=== PATIENT | female | born 2000 | race Caucasian/White ===

== ENCOUNTER 2024-01-27 18:27 | Emergency (ER) | payer OTHER, SELFPAY ==
[2024-01-27 18:28] VITALS: BP 137/81; PULSE 95; RESP 16; TEMP 36.3; O2SAT 98; BMI 31.1
--- NOTE | 2024-01-27 19:09 | EDS_ITS ---
HPI HPI - Female History of Present Illness Chief Complaint: Vag Bld, Preg Informant: patient and spouse/S.O. Narrative Narrative: 23-year-old female presenting to the emergency room in early with vaginal bleeding. Patient states that she is unsure of exactly how far along she is. She may be 4 weeks or less. She may be more. She states that her and her partner have been trying for a while to get and they recently found out that she was. Today she noticed some brown discharge and the last time she used the bathroom she noticed some bright red blood on the toilet paper. She has had some intermittent twinges and sharp pains particularly on the left side of her pelvis. She has not been seen for this yet. She does not know her blood type. She is not currently on any prescription me dications other than vitamin D2. PFSH PFSH Medical History no medical history Home Medications ?Medication ?Instructions ?Recorded ?Last Taken ?Type ergocalciferol (vitamin D2) 1,250 1,250 mcg PO QWEEK 01/27/24 Unknown History mcg (50,000 unit) capsule (Drisdol) vit no.95-ferrous 1 tab PO DAILY 01/27/24 Unknown History fumarate 28 mg-folic acid 800 mcg tablet () Allergy/AdvReac Type Severity Reaction Status Date / Time No Known Allergies Allergy Verified 01/27/24 18:28 Social History Smoking Status: Never smoker [facility] ED Constitutional Constitutional ED: Denies chills, fever(s) or weight loss Eyes Eyes: Denies change in vision or diplopia ENT ENT ED: Denies ear pain, rhinorrhea or sore throat Cardiovascular Cardiovascular: Denies chest pain, orthopnea, palpitations or racing heartbeat Respiratory/Chest Respiratory/Chest: Denies cough, dyspnea or orthopnea Gastrointestinal Gastrointestinal: Denies abdominal pain, diarrhea, nausea or vomiting Genitourinary Genitourinary ED: Reports as per HPI; Denies dysuria, hematuria or urinary frequency Musculoskeletal Musculoskeletal: Denies arthralgias or myalgias Integumentary Denies abscess or rash Neurologic Neurologic: Denies headache(s) or weakness Psychiatric Psychiatric: Denies anxiety, depression, suicidal ideation or suicidal thoughts Endocrine Endocrinology: Denies polydipsia, polyphagia or polyuria Allergic/Immunologic Allergic/Immunologic ED: Denies mouth swelling, tongue swelling or urticaria EXAM Physical Exam Const Vital Signs: 01/27/24 18:28 01/27/24 20:28 01/27/24 21:45 Temperature 97.4 F L 98.3 F Temperature Source Temporal Pulse Rate 95 87 99 Respiratory Rate 16 16 16 Blood Pressure 137/81 H 132/80 H 120/64 Blood Pressure Mean 99 97 82 Pulse Ox 98 99 100 Oxygen Delivery Method Room Air Room Air Positive well nourished and well developed General Appearance ED: well developed HEENT Reports normocephalic, head/scalp atraumatic and moist mucous membranes Eyes PERRL and EOMs intact bilaterally Neck no lymphadenopathy, supple and no JVD Resp normal respiratory effort and clear to auscultation bilaterally Cardio regular rate, regular rhythm and no murmurs GI normal to inspection, nondistended, normoactive bowel sounds and non-tender Palpation: soft Back/Spine no CVA tenderness and normal ROM Extremity normal to inspection General Extremety ED: Negative for edema General Extremity: Negative for edema Neuro oriented x3 and CN's II-XII intact bilaterally Sensorium / Orientation: alert Motor Exam: strength 5/5 throughout Psych mental status grossly normal Mood & Affect: anxious; Negative for depressed or tearful Skin no rashes or lesions noted and no wounds MDM MDM MDM Narrative Medical decision making narrative: Hemoglobin 13 urinalysis 1+ bacteria but no overt infection. Blood type a positive. Quantitative hCG is unfortunately only 25. Therefore I do not feel that a formal obstetric ultrasound is going to be of significant benefit. I did speak with on-call [facility] for Dr. Peters. It is our recommendation the patient get a 48-hour quantitative hCG. Miscarriage precautions. Relayed this information to the patient she was hoping to be able to follow-up with Dr. Reyes unfortunately they are not on-call tonight for no doc obstetrics. I provided both their names and numbers. I recommend she call see if she can get the 48-hour quantitative hCG. She will return if increased bleeding pain fever or worsening symptoms. She understands at this time I cannot guarantee a viable . She understands this is most likely nonviable but there still is a c nori that it could proceed. History & Record Review Discussion w/independent historian: Patient and Significant other Lab Data Attestation: I reviewed the patient's lab results. Labs: Laboratory Results - last 24 hr 01/27/24 01/27/24 19:16 19:17 Hgb 13.0 Hct 38.7 HCG, Quant 25 H Urine Color Straw Urine Clarity Clear Urine pH 7.0 Ur Specific [place] 1.005 Urine Protein Negative Urine Glucose (UA) Normal Urine Ketones Negative Urine Occult Blood Negative Urine Nitrite Negative Urine Bilirubin Negative Urine Urobilinogen Normal Ur Leukocyte Esterase Negative Urine RBC 0 SEEN Urine WBC 0 SEEN Ur Squamous Epith Cells 0-5 SEEN Urine Bacteria 1+ Urine Mucus 0 SEEN Blood Type O POSITIVE Discharge Plan Triage Chief Complaint: Vag Bld, Preg ED Provider: Enrique Pressley Dx/Rx/DC Orders Clinical Impression: , Vaginal bleeding Instructions: Miscarriage Threatened Prescriptions: No Action PNV cmb#95-ferrous fumarate-FA [] 28 mg iron- 800 mcg tablet 1 tab PO DAILY ergocalciferol (vitamin D2) [Drisdol] 1,250 mcg (50,000 unit) capsule 1,250 mcg PO QWEEK Primary Care Provider: Minerva Macdonald Referrals: Gabriela Mckay MD [Med Staff - Active Staff] - 2 Days Radha Peters MD [Med Staff - Active Staff] - 2 Days Minerva Macdonald, [facility] [Primary Care Provider] - Activity Restrictions/Additional Instructions: You need to have a repeat quantitative hCG level drawn in 48 hours. You may contact Dr. Peters's office to assist in this as they are on-call this week end for patients who are not established with [facility]. You may be able to get in with Dr. Hoff but would need to speak with their office. If worsening or concerns please return to emergency Print Language: [place] Disposition Disposition: Home, Self Care Discharge Date/Time: 01/27/24 21:45
[2024-01-27 19:24] LABS: Color, Urine Straw (Yellow); Glucose, Dipstick Normal (Normal); Ketone-Dipstick Negative (Negative); Leukocyte Esterase-Dipstick Negative /ul (Negative); Mucous, Urine 0 SEEN /hpf (<or=2+); Nitrite-Dipstick Negative (Negative); Occult Blood-Urine Negative /ul (Negative); Protein-Dipstick Negative (Negative); Red Blood Cells-Urine 0 SEEN /hpf (0-5); Specific Gravity, Urine 1.005 (1.002-1.030); Urine Bilirubin Dipstick Negative (Negative); Urine Clarity Clear (Clear); Urine Urobilinogen Normal (Normal); White Blood Cells 0 SEEN /hpf (0-5)
[2024-01-27 19:25] LABS: Hematocrit 38.7 % (37-47)
[2024-01-27 19:32] LABS: Bacteria 1+ /hpf (None Seen); Squamous Epithelial Cells - UA 0-5 SEEN /hpf (5-10)
[2024-01-27 19:44] LABS: hCG Titer Quant., Serum 25 mIU/mL (1-3)
[2024-01-27 20:28] VITALS: BP 132/80; PULSE 87; RESP 16; O2SAT 99
[2024-01-27 21:45] VITALS: BP 120/64; PULSE 99; RESP 16; TEMP 36.8; O2SAT 100
== END 2024-01-27 21:45 | disposition home or self-care (01) ==
PROVIDERS: Emergency Provider Emergency Medicine; PCP Nurse Practitioner Family; Visit Provider Emergency Medicine
DX: O20.9 Hemorrhage in early pregnancy, unspecified (principal); Z3A.00 Weeks of gestation of pregnancy not specified
CPT/HCPCS: 81001; 84702; 85014; 85018; 86900; 86901; 99284; A4216

== ENCOUNTER → 2024-01-29 | Outpatient (CLI) | payer OTHER, SELFPAY ==
[2024-01-29 19:57] LABS: hCG Titer Quant., Serum 45 mIU/mL (1-3)
== END | disposition home or self-care (01) ==
LOC: LAB 19:21
PROVIDERS: PCP Nurse Practitioner Family; Visit Provider Obstetrics & Gynecology
DX: Z34.90 Encounter for supervision of normal pregnancy, unspecified, unspecified trimester (principal); N93.9 Abnormal uterine and vaginal bleeding, unspecified
CPT/HCPCS: 36415; 84702

== ENCOUNTER → 2024-01-30 | Outpatient (CLI) | payer OTHER, SELFPAY ==
--- NOTE | 2024-01-30 12:43 | US_ITS ---
STUDY: FIRST TRIMESTER OBSTETRICAL ULTRASOUND REASON FOR EXAM: Female, 23 years old abnormal bleeding LMP: 12/13/2023 TECHNIQUE: Transvaginal TECHNICAL QUALITY: Adequate. PRIOR ULTRASOUND: None. FINDINGS: There is no demonstrated intrauterine gestational sac. There is no demonstrated yolk sac. The placenta is non-visualized. There is no demonstrated embryo ( pole). The uterus measures 8.5 x 5.1 x 4.0 centimeters. There is no demonstrated uterine fibroid. The cervix is closed. Endometrium is thickened at 16.8 mm The right ovary measures 3.8 x 4.0 x 2.3 cm. There is a complex cystic structure adjacent to the right ovary measuring 1.7 x 1.4 x 1.2 cm. This is possibly an ectopic , but there is no hyperemia or free fluid. Recommend short-term follow-up ultrasound and beta hCG levels for reassessment. There is also a simple 2 cm right ovarian cyst. The left ovary measures 2.0 x 1.2 x 1.1 centimeters. There is no left ovarian cyst. There is no visualized left adnexal mass or complex lesion. There is no fluid in the cul de sac. US/Transvaginal w/Preg US IMPRESSION: No sonographic evidence of intrauterine gestation. There is a thickened endometrium at 16.8 mm. There is both a simple right adnexal cyst measuring 2 cm and a complex adnexal structure measuring 1.7 cm. This complex structure could represent an ectopic but there is no hyperemia or free fluid. Recommend short-term, 3-5 day follow-up ultrasound and beta hCG levels for reassessment Sonographically normal left ovary No demonstrated free fluid Electronically Signed: Ralph Lou MD at 14:16 EDT ,
== END | disposition home or self-care (01) ==
LOC: US 12:42
PROVIDERS: PCP Nurse Practitioner Family; Referring Provider Obstetrics & Gynecology; Visit Provider Obstetrics & Gynecology
DX: O26.891 Other specified pregnancy related conditions, first trimester (principal); R10.32 Left lower quadrant pain; O20.9 Hemorrhage in early pregnancy, unspecified; Z3A.00 Weeks of gestation of pregnancy not specified
CPT/HCPCS: 76817

== ENCOUNTER → 2024-01-31 | Outpatient (CLI) | payer OTHER, SELFPAY ==
[2024-01-31 20:36] LABS: hCG Titer Quant., Serum 50 mIU/mL (1-3)
== END | disposition home or self-care (01) ==
LOC: LAB 19:14
PROVIDERS: PCP Nurse Practitioner Family; Visit Provider Obstetrics & Gynecology
DX: O20.9 Hemorrhage in early pregnancy, unspecified (principal); Z3A.00 Weeks of gestation of pregnancy not specified
CPT/HCPCS: 36415; 84702

== ENCOUNTER → 2024-02-03 | Outpatient (CLI) | payer OTHER, SELFPAY ==
[2024-02-03 11:01] LABS: hCG Titer Quant., Serum 36 mIU/mL (1-3)
== END | disposition home or self-care (01) ==
LOC: LAB 09:59
PROVIDERS: Obstetrics & Gynecology; PCP Nurse Practitioner Family; Referring Provider Obstetrics & Gynecology; Visit Provider Obstetrics & Gynecology
DX: O02.81 Inappropriate change in quantitative human chorionic gonadotropin (hCG) in early pregnancy (principal)
CPT/HCPCS: 36415; 84702

== ENCOUNTER → 2024-02-13 | Outpatient (CLI) | payer OTHER, SELFPAY ==
[2024-02-13 14:07] LABS: hCG Titer Quant., Serum < 1 mIU/mL (1-3)
== END | disposition home or self-care (01) ==
LOC: LAB 12:15
PROVIDERS: PCP Nurse Practitioner Family; Referring Provider Nurse Practitioner Women's Health; Visit Provider Nurse Practitioner Women's Health
DX: O03.9 Complete or unspecified spontaneous abortion without complication (principal)
CPT/HCPCS: 36415; 84702

== ENCOUNTER → 2024-08-11 | Outpatient (CLI) | payer OTHER, SELFPAY ==
[2024-08-11 13:40] LABS: hCG Titer Quant., Serum 41501 mIU/mL (1-3)
== END | disposition home or self-care (01) ==
LOC: LAB 12:36
PROVIDERS: PCP Nurse Practitioner Family; Referring Provider Obstetrics & Gynecology; Visit Provider Obstetrics & Gynecology
DX: O20.0 Threatened abortion (principal); Z3A.00 Weeks of gestation of pregnancy not specified
CPT/HCPCS: 36415; 84702; 86850; 86900; 86901

== ENCOUNTER → 2024-08-22 | Outpatient (CLI) | payer OTHER, SELFPAY ==
--- NOTE | 2024-08-22 15:23 | US_ITS ---
STUDY: FIRST TRIMESTER OBSTETRICAL ULTRASOUND REASON FOR EXAM: Female, 24 years old viability LMP: 06/23/2024 TECHNIQUE: Transvaginal TECHNICAL QUALITY: Adequate. PRIOR ULTRASOUND: None. FINDINGS: There is visualization of a single gestational sac in a normal intrauterine position. The mean sac diameter (MSD) measures 30 mm, indicating an estimated gestational age (EGA) of 8 weeks, 1 days. The gestational sac shape is within normal limits. 1.8 cm echogenic area within or adjacent to the gestational sac extending from the endometrium which may represent a chorionic bump. There is a visualized yolk sac. The yolk sac measures 4 mm. The placenta is non-visualized. There is visualization of a live embryo. The crown-rump length (CRL) measures 13 mm, indicating an estimated gestational age (EGA) of 7 weeks, 4 days. There is demonstrated cardiac activity with a heart rate of 164 bpm. The estimated gestation age (EGA) by LMP is 8 weeks, 4 days. The estimated date of delivery (ITZEL) by LMP is 03/30/2025. The estimated gestation age (EGA) by US is 7 weeks, 6 days. The estimated date of delivery (ITZEL) by US is 04/04/2025. The uterus measures 10.3 x 8.3 x 6.5 cm. There is no demonstrated uterine fibroid. The cervix is closed. The right ovary measures 2.9 x 1.8 x 1.8 cm. There is no right ovarian cyst. There is no visualized right adnexal mass or complex lesion. The left ovary measures 2.4 x 1.2 x 1.4 cm. There is no left ovarian cyst. There is no visualized left adnexal mass or complex lesion. There is no fluid in the cul de sac. US/Transvaginal w/Preg US IMPRESSION: Living intrauterine of 7 weeks 6 days as described above. Electronically Signed: Sarthak Rosas MD at 8:53 EST ,
[2024-08-22 16:30] LABS: Absolute Lymphocyte Count 2.27 X10^3/uL (0.83-4.51); Absolute Neutrophil Count 6.2 X10^3/uL (2.0-7.7); Basophil# 0.04 X10^3/uL; Basophil% 0.4 % (0-1); Eosinophil# 0.21 X10^3/uL; Eosinophils% 2.2 % (0-5); Hematocrit 37.7 % (37-47); Hemoglobin 12.7 g/dL (12.0-15.0); Lymphocyte # 2.27 X10^3/ul (0.83-4.51); Lymphocyte % 23.7 % (19-41); Mean Corp Hgb Conc 33.7 g/dL (32-36); Mean Corpuscular Hgb 29.5 pg (27.0-32.0); Mean Corpuscular Volume 87.5 fL (81-99); Mean Platelet Vol. 11.8 fl (6.2-12.0); Monocyte% 8.4 % (0-10); NRBC Flagged by Analyzer 0 % (0-5); Neutrophil % 64.9 % (47-70); Platelet Count 264 K/mm3 (150-450); RBC Distribution Width CV 12.2 % (11.6-14.6); RBC Distribution Width SD 39.5 fl (35.1-43.9); Red Blood Count 4.31 M/mm3 (4.2-5.4); White Blood Count 9.6 K/mm3 (4.4-11.0)
[2024-08-25 16:12] LABS: HIV - WCH Non-Reactive (Nonreactive); Hepatitis B Surface Antigen Non-Reactive (Nonreactive); Hepatitis C Antibody Non-Reactive (Nonreactive); Rubella IgG Reactive (Nonreactive); Syphilis Antibodies Non-reactive
[2024-08-25 21:06] LABS: Chlamydia By Nucleic Acid AMP Positive (Negative); Gonococcus By Nucleic Acid AMP Negative (Negative)
== END | disposition home or self-care (01) ==
PROVIDERS: Advanced Practice Midwife; PCP Nurse Practitioner Family; Referring Provider Obstetrics & Gynecology; Visit Provider Obstetrics & Gynecology
DX: O99.210 Obesity complicating pregnancy, unspecified trimester (principal); Z3A.00 Weeks of gestation of pregnancy not specified
CPT/HCPCS: 36415; 76817; 83036; 85025; 86703; 86762; 86780; 86803; 86850; 86900; 86901; 87086; 87340; 87491; 87591

== ENCOUNTER → 2024-09-15 | Outpatient (CLI) | payer OTHER, SELFPAY | END | disposition home or self-care (01) | LOC: BWCLAB 16:02 | PROVIDERS: Advanced Practice Midwife; PCP Nurse Practitioner Family; Referring Provider Obstetrics & Gynecology; Visit Provider Obstetrics & Gynecology | DX: Z34.81 Encounter for supervision of other normal pregnancy, first trimester (principal) | CPT/HCPCS: 36415 ==

== ENCOUNTER → 2024-10-22 | Outpatient (CLI) | payer OTHER, SELFPAY | END | disposition home or self-care (01) | LOC: LABSPEC 16:22 | PROVIDERS: PCP Nurse Practitioner Family; Referring Provider Nurse Practitioner Women's Health; Visit Provider Nurse Practitioner Women's Health | DX: O98.819 Other maternal infectious and parasitic diseases complicating pregnancy, unspecified trimester (principal); A74.9 Chlamydial infection, unspecified; Z11.3 Encounter for screening for infections with a predominantly sexual mode of transmission; Z3A.00 Weeks of gestation of pregnancy not specified | CPT/HCPCS: 87491; 87591 ==

== ENCOUNTER → 2024-11-10 | Outpatient (CLI) | payer OTHER, SELFPAY ==
--- NOTE | 2024-11-10 13:19 | US_ITS ---
PROCEDURE: OB ANATOMY W/ TRANSVAGINAL REASON FOR EXAM: Anatomy scan. COMPARISON: Comparison is made with prior study dated August 22, 2024. FINDINGS Number: 1 Position: Breech Placental Position: Anterior and right lateral. No evidence of low-lying placenta. Placental Abnormalities: None. DIMENSIONS: Biparietal Diameter: 4.35 cm: 19 weeks and 1 day: 17 percentile/ Head Circumference: 15.9 cm: 18 weeks and 5 days: 4th percentile/ Abdominal Circumference: 13.95 cm: 19 weeks and 2 days: 24 percentile/ Femur Length: 2.75 cm: 18 weeks and 3 days: 4th percentile/ ESTIMATED WEIGHT: 266 g plus/-40 g ESTIMATED WEIGHT PERCENTILE (24+ weeks): ESTIMATED GESTATIONAL AGE: Baseline: 20 weeks and 0 days By Ultrasound: 18 weeks and 6 days ESTIMATED DATE OF DELIVERY: Baseline: March 30, 2025 By Ultrasound: April 07, 2025 BIOPHYSICAL ASSESSMENT: Amniotic Fluid Volume: Subjectively normal. Amniotic Fluid Index: Within normal limits (8-24 cm normal range) Cardiac Motion: 144 beats per minute (average) Trunk and Limb Motion: Present. MATERNAL ANATOMY: Adnexa: Neither maternal ovary is successfully identified. Cervical Length (if measured): ANATOMY: Spine: Unremarkable. Cranium: Unremarkable. Cerebellum: Unremarkable. Cisterna Magna: Unremarkable. Cavum Septum Pellucidi: Present. Lateral Ventricles: Unremarkable. Choroid Plexus: Tiny cysts are seen within the choroid plexus bilaterally. Midline Falx: Present. Nuchal Fold: Upper Lip: Grossly intact. Heart: Normal four-chamber view. Ventricular Outflow Tracts: Unremarkable. Stomach: Unremarkable. Kidneys: Unremarkable. Bladder: Midline. Umbilical Cord: Three vessel cord. Normal and placental insertions. Extremities: Unremarkable. US/OB Anatomy w/ Transvaginal IMPRESSION: Single live intrauterine gestation with a mean gestational age of 19 weeks and 2 days. The measurements obtained today fall with the normal expected range. Small cysts in both choroid plexus. Reading Location: [id number]
== END | disposition home or self-care (01) ==
PROVIDERS: PCP Nurse Practitioner Family; Referring Provider Obstetrics & Gynecology; Visit Provider Obstetrics & Gynecology
DX: O09.90 Supervision of high risk pregnancy, unspecified, unspecified trimester (principal); Z3A.00 Weeks of gestation of pregnancy not specified
CPT/HCPCS: 76805; 76817

== ENCOUNTER → 2025-01-06 | Outpatient (CLI) | payer OTHER, SELFPAY ==
[2025-01-06 13:10] LABS: Absolute Lymphocyte Count 2.08 X10^3/uL (0.83-4.51); Basophil# 0.04 X10^3/uL; Basophil% 0.3 % (0-1); Eosinophil# 0.17 X10^3/uL; Eosinophils% 1.2 % (0-5); Hematocrit 30.4 % (37-47); Hemoglobin 10.2 g/dL (12.0-15.0); Lymphocyte # 2.08 X10^3/ul (0.83-4.51); Lymphocyte % 14.5 % (19-41); Mean Corp Hgb Conc 33.6 g/dL (32-36); Mean Corpuscular Hgb 30.4 pg (27.0-32.0); Mean Corpuscular Volume 90.7 fL (81-99); Mean Platelet Vol. 11.4 fl (6.2-12.0); Monocyte# 0.78 X10^3/uL; Monocyte% 5.4 % (0-10); NRBC Flagged by Analyzer 0 % (0-5); Neutrophil # 11.01 X10^3/uL (2.7-7.7); Neutrophil % 76.9 % (47-70); Platelet Count 268 K/mm3 (150-450); RBC Distribution Width CV 12.7 % (11.6-14.6); RBC Distribution Width SD 41.2 fl (35.1-43.9); Red Blood Count 3.35 M/mm3 (4.2-5.4); White Blood Count 14.3 K/mm3 (4.4-11.0)
[2025-01-06 14:52] LABS: Glucose Challenge Gest 1H 50g 126 mg/dL (70-140); HIV Nonreactive (Nonreactive); Syphilis Antibodies Nonreactive (Nonreactive)
== END | disposition home or self-care (01) ==
LOC: LAB 11:54
PROVIDERS: PCP Nurse Practitioner Family; Referring Provider Obstetrics & Gynecology; Visit Provider Obstetrics & Gynecology
DX: O09.92 Supervision of high risk pregnancy, unspecified, second trimester (principal); Z13.1 Encounter for screening for diabetes mellitus; Z3A.00 Weeks of gestation of pregnancy not specified
CPT/HCPCS: 36415; 82950; 85025; 86703; 86780

== ENCOUNTER → 2025-01-08 | Outpatient (CLI) | payer OTHER, SELFPAY ==
--- NOTE | 2025-01-08 16:16 | US_ITS ---
PROCEDURE: OB LIMITED WITH BIOMETRICS 01/08/2025 REASON FOR EXAM: FOLLOW UP RESEARCH SUBJECT TECHNIQUE: High resolution obstetric ultrasound performed using a 2D transducer. Standard views obtained, including biometry, anatomy survey, and Doppler studies. FINDINGS Transabdominal imaging Single live intrauterine with cardiac activity 143 beats per minute. Presentation breech. Cervix not visualized. EDITH 15.4 cm, maximum vertical pocket 4.0 cm Anterior right lateral placenta appears within limits, not low-lying, grade 2 DIMENSIONS: Biparietal Diameter: 6.8 cm/27 weeks 2 days, 9% Head Circumference: 25.5 cm/27 weeks 5 days, 6% Abdominal Circumference: 23.3 cm/27 weeks 5 days, 21% Femur Length: 4.8 cm/26 weeks 1 day, 1.4% FL/HC 21%, FL/BPD 71%, FL/HC 19%, CI 75%, HC/AC 1.1 ESTIMATED WEIGHT: 1034 g +/-155 g ESTIMATED WEIGHT PERCENTILE (24+ weeks): 7.2% Estimated age by current ultrasound 27 weeks 2 days, ITZEL 04/07/2025 age by prior ultrasound 27 weeks 2 days, ITZEL 04/07/2025 age by LMP 28 weeks 3 days, ITZEL 03/30/2025 On the current ultrasound there is no evidence of cystic area identified at the choroid plexus. US/OB Limited With Biometrics IMPRESSION: Single live intrauterine with biometry as above. Femur Length: 4.8 cm/26 weeks 1 day, 1.4% ESTIMATED WEIGHT: 1034 g +/-155 g ESTIMATED WEIGHT PERCENTILE (24+ weeks): 7.2% Reading Location: [id number]
== END | disposition home or self-care (01) ==
LOC: US 16:15
PROVIDERS: PCP Nurse Practitioner Family; Referring Provider Obstetrics & Gynecology; Visit Provider Obstetrics & Gynecology
DX: O35.03X0 Maternal care for (suspected) central nervous system malformation or damage in fetus, choroid plexus cysts, not applicable or unspecified (principal); Z3A.00 Weeks of gestation of pregnancy not specified
CPT/HCPCS: 76816

== ENCOUNTER → 2025-02-03 | Outpatient (CLI) | payer OTHER, SELFPAY ==
[2025-02-03 16:15] LABS: Absolute Lymphocyte Count 2.13 X10^3/uL (0.83-4.51); Absolute Neutrophil Count 8.7 X10^3/uL (2.0-7.7); Basophil# 0.02 X10^3/uL; Basophil% 0.2 % (0-1); Eosinophil# 0.14 X10^3/uL; Eosinophils% 1.1 % (0-5); Hemoglobin 10.8 g/dL (12.0-15.0); Lymphocyte # 2.13 X10^3/ul (0.83-4.51); Lymphocyte % 17.4 % (19-41); Mean Corp Hgb Conc 32.7 g/dL (32-36); Mean Corpuscular Hgb 30.6 pg (27.0-32.0); Mean Corpuscular Volume 93.5 fL (81-99); Mean Platelet Vol. 11.7 fl (6.2-12.0); Monocyte# 1.05 X10^3/uL; Monocyte% 8.6 % (0-10); NRBC Flagged by Analyzer 0 % (0-5); Neutrophil # 8.66 X10^3/uL (2.7-7.7); Neutrophil % 70.7 % (47-70); Platelet Count 232 K/mm3 (150-450); RBC Distribution Width CV 13.9 % (11.6-14.6); RBC Distribution Width SD 46.7 fl (35.1-43.9); Red Blood Count 3.53 M/mm3 (4.2-5.4); White Blood Count 12.2 K/mm3 (4.4-11.0)
== END | disposition home or self-care (01) ==
LOC: BWCLAB 14:00
PROVIDERS: PCP Nurse Practitioner Family; Visit Provider Nurse Practitioner Women's Health
DX: D64.9 Anemia, unspecified (principal)
CPT/HCPCS: 36415; 85025

== ENCOUNTER → 2025-02-18 | Outpatient (CLI) | payer OTHER, SELFPAY | END | disposition home or self-care (01) | LOC: LABSPEC 15:11 | PROVIDERS: PCP Nurse Practitioner Family; Visit Provider Obstetrics & Gynecology | DX: O47.00 False labor before 37 completed weeks of gestation, unspecified trimester (principal); Z3A.00 Weeks of gestation of pregnancy not specified | CPT/HCPCS: 87070; 87086; 87088; 87205 ==

== ENCOUNTER 2025-02-19 06:50 | Outpatient (CLI) | payer OTHER, SELFPAY ==
--- OUTSIDE RECORDS SUMMARY | 2025-02-19 07:04 | XMS RPT_ITS | CCD ---
Author Organization [facility] Care Team Providers Care Temperature Logging Operator Name Role Phone Free, Text Entry Unavailable Unavailable [place], Verona I Unavailable Unavailable Flower HIGH RISK CASE MANAGER-SHINGLE GRADER, Minerva D Primary Care Provider FLOWER, MINERVA D Primary Care Unavailable FLOWER, MINERVA D Primary Care Unavailable FLOWER, MINERVA D Primary Care Unavailable FLOWER, MINERVA D Attending Unavailable FLOWER, MINERVA D Primary Care Unavailable FLOWER, MINEVRA D Attending Unavailable FLOWER, MINERVA D Primary Care Unavailable FLOWER, MINERVA D Attending Unavailable FLOWER, MINERVA D Primary Care Unavailable FLOWER, MINERVA D Primary Care Unavailable BILL ANDRES Referring Unavailable Flower CONCRETE BATCHING PLANT OPERATOR-C, Minerva D Primary Care Provider Flower CONCRETE BATCHING PLANT OPERATOR-C, Minerva D Referring Provider [phone] Dr. Radha Peters MD Attending Provider [phone] Dr. Radha Peters MD Referring Provider Faith Wall RN Attending Provider UnavailElle Hernandez CNM Attending Provider [place] CONCRETE BATCHING PLANT OPERATOR-C, Chioma Attending Provider [place] CONCRETE BATCHING PLANT OPERATOR-C, Chioma Referring Provider [place]lower CONCRETE BATCHING PLANT OPERATOR-C, Minerva D Primary Care Provider [phone] Flower CONCRETE BATCHING PLANT OPERATOR-C, Minerva D Referring Provider [phone] Dr. Radha Peters MD Attending Provider Dr. Radha Peters MD Referring Provider Dr. María Elena Solomon DO Attending Provider Dr. María Elena Solomon DO Referring Provider Elle Poe CNM Attending Provider NO PRIMARY CARE, Primary Care Unavailable MARÍA ELENA CROFT Referring Unavailab MARÍA ELENA Frost Attending Unavailab Amber Alejandra CNM Attending Provider [phone] Flower CONCRETE BATCHING PLANT OPERATOR-C, Minerva D Primary Care Provider [place] CONCRETE BATCHING PLANT OPERATOR-C, Minerva D Referring Provider [phone] Fran GARCIA, Dr. Garcia Attending Provider [phone] Flower, Minerva D Primary Care Unavailable Elle Poe Attending Unavailable Flower, Minerva D Referring Unavailable Faith Wall Attending Unavailable Flower, Minerva D Primary Care Unavailable Flower, Minerva D Primary Care Unavailable Flower, Minerva D Referring Unavailable Gian, Molly Attending Unavailable Vande María Elena Hodge Attending Unavailabl e Flower, Minerva D Primary Care Unavailable Flower, Minerva D Referring Unavailable Vande VeldeMaría Elena Attending Unavailabl e Flower, Minerva D Primary Care Unavailable Flower, Minerva D Referring Unavailable Flower, Minerva D Primary Care Unavailable Flower, Minerva D Referring Unavailable MarcanthonyRadha Attending Unavailable Flower, Minerva D Primary Care Unavailable Marcanthony, Radha Attending Unavailable Flower, Minerva D Referring Unavailable Flower, Minerva D Primary Care Unavailable BarakanthonyRadha Referring Unavailable BarakanthonyRadha Attending Unavailable Flower, Minerva D Primary Care Unavailable MarcanthonyRadha Referring Unavailable MarcanthonyRadha Attending Unavailable Flower, Minerva D Primary Care Unavailable Flower, Minreva D Referring Unavailable Elle Poe Attending Unavailable Flower, Minerva D Primary Care Unavailable Chioma Springer Referring Unavailable Gian, Molly Attending Unavailable Flower, Minerva D Primary Care Unavailable MarcanthonyRadha Attending Unavailable BarakanthonyRadha Referring Unavailable María Elena Solomon Referring Unavailabl e María Elena Solomon Attending Unavailabl e Flower, Minerva D Primary Care Unavailable Flower, Minerva D Primary Care Unavailable MarcanthonyRadha Referring Unavailable MarcanthonyRadha Attending Unavailable Flower, Minerva D Primary Care Unavailable Gian, Molly Attending Unavailable María Elena Solomon Referring Unavailabl e Jeremias VelMaría Elena schneider Attending Unavailabl e Flower, Minerva D Primary Care Unavailable Flower, Minerva D Primary Care Unavailable [place], Chioma Attending Unavailable Minerva Flower Referring Unavailable Amber Dyer Attending Unavailable Minerva Flower Referring Unavailable Minerva Flower Primary Care Unavailable Minerva Flower Primary Care Unavailable Minerva Flower Referring Unavailable Chioma Springer Attending Unavailable Minerva Flower Primary Care Unavailable Minerva Flower Referring Unavailable Radha Peters Attending Unavailable Allergies Allergy Classification Reported Allergen(s) Allergy Type Date of Onset Reaction(s) Facility (5 sources) strawberry allergenic extract; Translations: [STRAWBERRY] Drug Allergy 05-30-2023 Unknown [facility] Medications Current Medications Medication Drug Class(es) Dates Sig (Normalized) Sig (Original) acetaminophen 325 mg oral tablet (1 source) take 1 tablet by mouth every four hours as needed acetaminophen 325 mg oral tablet ; 1 tab(s) orally every 4 hours, As Needed Quantity: 0 Refills: 0 Ordered: 30-Nov-2021 Gertrude Mccloud Generic Substitution Allowed amoxicillin 500 mg oral capsule (1 source) Penicillin-class Antibacterial Start: 07-05-2023 End: 07-15-2023 take 1 capsule by mouth every twelve hours amoxicillin (Amoxil) 500 mg capsule Indications: Pharyngitis, unspecified etiology Take 1 capsule (500 mg) by mouth every 12 hours for 10 days. 20 capsule 0 07/05/2023 07/15/2023 Active cholecalciferol 0.05 mg oral tablet (1 source) Vitamin D Start: 07-29-2024 End: 07-29-2025 take 1 tablet by mouth once daily cholecalciferol (Vitamin D3) 50 MCG (2000 UT) tablet Indications: Vitamin D deficiency Take 1 tablet (50 mcg) by mouth once daily. 90 tablet 3 07/29/2024 07/29/2025 Active docosahexaenoic acid 200 mg oral capsule (7 sources) Start: 08-15-2024 Docosahexaenoic Acid ( Dha) 200 mg capsule Active mg PO August 15, 2024 1:00am ergocalciferol 1.25 mg oral capsule (10 sources) Provitamin D2 Compound Start: 01-27-2024 Ergocalciferol (Vitamin D2) (Drisdol) 1,250 mcg (50,000 unit) capsule Active 1250 ug PO EVERY WEEK January 27, 2024 12:00am Start: 05-30-2023 End: 07-29-2024 take 1 capsule by mouth every week ergocalciferol (Vitamin D-2) 1.25 MG (99857 UT) capsule Indications: Vitamin D deficiency Take 1 capsule (50,000 Units) by mouth 1 (one) time per week. 13 capsule 3 10/30/2023 07/29/2024 Discontinued (Therapy completed) famotidine 20 mg oral tablet (1 source) Histamine-2 Receptor Antagonist Start: 02-18-2025 take 1 tablet by mouth twice daily before mealtime Famotidine (Pepcid Ac) 20 mg tablet Active 20 mg PO TWICE A DAY February 18, 2025 12:00am 24 hr ferrous sulfate 142 mg extended release oral tablet (7 sources) Start: 02-03-2025 take 1 tablet by mouth once daily Ferrous Sulfate (Slow Fe) 137 mg (45 mg iron) tablet extended release Active 137 mg PO daily February 03, 2025 12:00am Start: 05-31-2023 FeroSuL 325 mg (65 mg iron) tablet Take 1 tablet by mouth. 05/31/2023 Active Start: 05-30-2023 End: 07-05-2023 take 1 tablet by mouth once daily at mealtime ferrous sulfate 325 (65 Fe) MG EC tablet Indications: Iron deficiency anemia, unspecified iron deficiency anemia type Take 1 tablet (325 mg) by mouth once daily with a meal. Do not crush, chew, or split. 90 tablet 3 05/30/2023 07/05/2023 Discontinued (Duplicate order) fluconazole 150 mg oral tablet (1 source) Azole Antifungal Start: 07-05-2023 fluconazole ( Diflucan) 150 mg tablet Indications: Pharyngitis, unspecified etiology TAKE 1 TAB Q72 HOURS PRN 3 tablet 0 07/05/2023 Active Start: 07-05-2023 fluconazole (D iflucan) 150 mg tablet Indications: Pharyngitis, unspecified etiology TAKE 1 TAB Q72 HOURS PRN 3 tablet 0 07/05/2023 Active ibuprofen 200 mg oral tablet (1 source) Nonsteroidal Anti-inflammatory Drug take 1 tablet by mouth every six hours as needed ibuprofen 200 mg oral tablet ; 1 tab(s) orally every 6 hours, As Needed Quantity: 0 Refills: 0 Ordered: 30-Nov-2021 Gertrude Mccloud Generic Substitution Allowed Mecobalamin (Vitamin B12) 10,000 mcg recon soln (7 sources) Start: 2023 Mecobalamin (Vitamin B12) 10,000 mcg recon soln Active ug IM MONTHLY August 15, 2024 1:00am Multivitamin preparation (1 source) take 1 tablet by mouth once daily Multiple Vitamins oral tablet, chewable ; 1 tab(s) orally once a day Quantity: 0 Refills: 0 Ordered: 30-Nov-2021 Gertrude Mccloud Generic Substitution Allowed ondansetron 4 mg disintegrating oral tablet (7 sources) Serotonin-3 Receptor Antagonist Start: 2023 take 1 tablet by mouth every six hours as needed for nausea and vomiting Ondansetron 4 mg tablet,disintegratin g Active 4 mg PO EVERY 6 HOURS as needed for nausea and vomiting August 09, 2024 1:00am PNV no.95/ferrous fum/folic ac ( MULTIVITAMINS ORAL) (2 sources) take 1 capsule by mouth once daily before mealtime PNV no.95/ferrous fum/folic ac ( MULTIVITAMINS ORAL) Take 1 capsule by mouth once daily. Active vitamin b12 1 mg/ml injectable solution (1 source) Vitamin B12 Start: 2023 cyanocobalamin (Vitamin B-12) injection 1,000 mcg Start: 07-29-2024 cyanocobalamin (Vitamin B-12) injection 1,000 mcg Completed/Discontinued Medications Medication Drug Class(es) Dates Sig (Normalized) Sig (Original) azithromycin 500 mg oral tablet (7 sources) Macrolide Antimicrobial Start: 08-26-2024 End: 10-22-2024 take 1 tablet by mouth once Azithromycin (Zithromax) 500 mg tablet Discontinued 1000 mg PO ONCE 2 August 26, 2024 1:00am October 22, 2024 3:29pm administer on day 1 of therapy Pnv Cmb#95-Ferrous Fumarate-Fa () 28 mg iron- 800 mcg tablet (7 sources) Start: 01-27-2024 End: 02-13-2024 Pnv Cmb#95-Ferrous Fumarate-Fa () 28 mg iron- 800 mcg tablet Discontinued 1 {tbl} PO DAILY January 27, 2024 12:00am February 13, 2024 11:48am Problems Active Problems Problem Classification Problem Date Documented Date Episodic/Chronic Abdominal pain (3 sources) Abdominal pain; Translations: [Periumbilical pain] 11-30-2021 Episodic Comment on above: ABD PAIN Bacterial infection; unspecified site (1 source) Chlamydial infection, unspecified; Translations: [Chlamydial infection, unspecified] Onset: 02-03-2025 Episodic Deficiency and other anemia (1 source) Anemia, unspecified; Translations: [Anemia, unspecified] Onset: 02-06-2025 Episodic Diseases of white blood cells (5 sources) Leukocytosis; Translations: [Elevated white blood cell count, unspecified] Onset: 07-29-2024 07-29-2024 Chronic Hemorrhage during ; abruptio placenta; placenta previa (20 sources) Antepartum hemorrhage; Translations: [Hemorrhage in early , unspecified] Onset: 09-23-2024 02-13-2024 Episodic Comment on above: viable 3.8mm CRL wit h FHT present, separat 14 mm structure in the GS seen separate from pole and yolk sac, unclear significance, formal scan ordered for new OB visit next week Menstrual disorders (5 sources) Amenorrhea; Translations: [Amenorrhea, unspecified] Onset: 07-25-2024 07-25-2024 Chronic Nutritional deficiencies (9 sources) Vitamin D deficiency; Translations: [Vitamin D deficiency, unspecified] Onset: 05-30-2023 05-30-2023 Chronic Nutritional deficiencies (9 sources) Iron deficiency; Translations: [Iron deficiency] Onset: 05-30-2023 Resolved: 10-19-2023 05-30-2023 Episodic Other complications of ; puerperium affecting management of mother (19 sources) choroid plexus cyst; Translations: [Choroid plexus cyst of fetus in heredia ] 12-18-2024 Episodic Comment on above: negative on repeat s can. Other complications of (20 sources) Maternal obesity complicating , childbirth and the puerperium, antepartum; Translations: [Obesity complicating , unspecified trimester] 10-22-2024 Chronic Comment on above: BMI 30.4, HgBA1C nor mal Other complications of (7 sources) Anemia of ; Translations: [Anemia complicating , unspecified trimester] 02-03-2025 Chronic Other complications of (1 source) Obesity complicating , second trimester; Translations: [Obesity complicating , second trimester] Onset: 02-03-2025 Chronic Other complications of (1 source) Anemia complicating , third trimester; Translations: [Anemia complicating , third trimester] Onset: 02-03-2025 Chronic Other complications of (1 source) Obesity complicating , unspecified trimester; Translations: [Obesity complicating , unspecified trimester] Onset: 09-25-2024 Chronic Other complications of (7 sources) Left lower quadrant pain; Translations: [Other specified related conditions, first trimester] 02-13-2024 Episodic Other complications of (20 sources) H/O: miscarriage; Translations: [Supervision of with other poor reproductive or obstetric history, unspecified trimester] 08-15-2024 Episodic Comment on above: January 2024 Other complications of (20 sources) High risk ; Translations: [Supervision of high risk , unspecified, unspecified trimester] 10-22-2024 Episodic Comment on above: , ITZEL 03/30/25, H usband: Otoniel PRR , ITZEL 5, : Otoniel Other complications of (20 sources) Chlamydial infection; Translations: [Other maternal infectious and parasitic diseases complicating , unspecified trimester] 10-23-2024 Episodic Comment on above: 08/26/24 azithromyci n sent; 10/22/24 rpt culture:negative Other complications of (14 sources) Disorder of ; Translations: [Maternal care for other known or suspected poor growth, unspecified trimester, not applicable or unspecified] 01-12-2025 Episodic Comment on above: growth US 7%- MFM re ferral for fu growth scan growth US 7%- MFM re ferral for fu growth scan. due date changed 04/06/25 on 01/20. Other complications of (1 source) Supervision of with other poor reproductive or obstetric history, unspecified trimester; Translations: [Supervision of with other poor reproductive or obstetric history, unspecified trimester] Onset: 02-03-2025 Episodic Other complications of (1 source) Other maternal infectious and parasitic diseases complicating , unspecified trimester; Translations: [Other maternal infectious and parasitic diseases complicating , unspecified trimester] Onset: 02-03-2025 Episodic Other complications of (1 source) Supervision of high risk , unspecified, third trimester; Translations: [Supervision of high risk , unspecified, third trimester] Onset: 02-03-2025 Episodic Other complications of (1 source) Maternal care for other known or suspected poor growth, unspecified trimester, not applicable or unspecified; Translations: [Maternal care for other known or suspected poor growth, unspecified trimester, not applicable or unspecified] Onset: 02-03-2025 Episodic Other complications of (1 source) Supervision of high risk , unspecified, second trimester; Translations: [Supervision of high risk , unspecified, second trimester] Onset: 01-14-2025 Episodic Other complications of (1 source) Supervision of high risk , unspecified, unspecified trimester; Translations: [Supervision of high risk , unspecified, unspecified trimester] Onset: 11-21-2024 Episodic Other female genital disorders (7 sources) Vaginal bleeding; Translations: [Abnormal uterine and vaginal bleeding, unspecified] 02-04-2024 Chronic Other and delivery including normal (20 sources) Encounter for supervision of normal , unspecified, unspecified trimester; Translations: [] Onset: 07-29-2024 Episodic Comment on above: NIPT low risk, Choro id plexus cysts. Residual codes; unclassified (20 sources) Family history of hemochromatosis; Translations: [Family history of other endocrine, nutritional and metabolic diseases] 08-15-2024 Episodic Comment on above: Pt tested and is NEG ATIVE Residual codes; unclassified (20 sources) Vegetarian; Translations: [Other specified health status] 08-15-2024 Episodic Comment on above: x8 years - recently started eating some meat since Residual codes; unclassified (1 source) Family history of other endocrine, nutritional and metabolic diseases; Translations: [Family history of other endocrine, nutritional and metabolic diseases] Onset: 02-03-2025 Episodic Residual codes; unclassified (1 source) Other specified health status; Translations: [Other specified health status] Onset: 02-03-2025 Episodic Residual codes; unclassified (1 source) 31 weeks gestation of ; Translations: [31 weeks gestation of ] Onset: 02-03-2025 Episodic Residual codes; unclassified (1 source) 28 weeks gestation of ; Translations: [28 weeks gestation of ] Onset: 01-06-2025 Episodic Spontaneous (7 sources) Miscarriage; Translations: [Complete or unspecified spontaneous without complication] 08-15-2024 Episodic Unclassified (1 source) Periumbilical abdominal pain 11-30-2021 Unclassified (1 source) Maternal care for (suspected) central nervous system malformation or damage in fetus, choroid plexus cysts, not applicable or unspecified; Translations: [Maternal care for (suspected) central nervous system malformation or damage in fetus, choroid plexus cysts, not applicable or unspecified] Onset: 01-15-2025 Past or Other Problems Problem Classification Problem Date Documented Da te Episodic/Chronic Administrative/social admission (2 sources) First encounter by subject; Translations: [Persons encountering health services in other specified circumstances] Onset: 05-23-2023 Resolved: 05-30-2023 05-30-2023 Episodic Contraceptive and procreative management (4 sources) Patient encounter status; Translations: [Encounter for procreative management, unspecified] Onset: 05-23-2023 Resolved: 05-30-2023 05-23-2023 Episodic Deficiency and other anemia (4 sources) Iron deficiency anemia; Translations: [Iron deficiency anemia, unspecified] Onset: 05-30-2023 05-30-2023 Episodic Deficiency and other anemia (4 sources) Iron deficiency anemia, unspecified; Translations: [Iron deficiency anemia, unspecified] Onset: 05-30-2023 Episodic Other upper respiratory infections (4 sources) Pharyngitis; Translations: [Acute pharyngitis, unspecified] Onset: 07-05-2023 Resolved: 10-19-2023 07-05-2023 Episodic Residual codes; unclassified (1 source) 13 weeks gestation of ; Translations: [13 weeks gestation of ] Onset: 09-23-2024 Episodic Residual codes; unclassified (1 source) 8 weeks gestation of ; Translations: [8 weeks gestation of ] Onset: 08-22-2024 Episodic Unclassified (3 sources) Onset: 07-05-2023 Resolved: 11-19-2024 10-26-2023 Results Test Name Value Interpretation Reference Range Facility Absolute lymphocyte countOrd ered By: Chioma Springer on 02-03-2025 Lymphocytes Auto (Unsp spec) [#/Vol] 2.13 10*3/uL 0.83-4.51 [facility] Absolute neutrophil countOrd ered By: Chioma Springer on 02-03-2025 Neutrophils (Bld) [#/Vol] 8.7 10*3/uL High 2.0-7.7 [facility] Automated blood erythrocyte countOrdered By: Chioma Springer on 02-03-2025 RBC (Bld) [#/Vol] 3.53 10*6/uL Low 4.2-5.4 [facility] Comment on above: Performed By: #### L 100.0100 ####[facility] [address] [place] [id number] Automated blood hematocrit ( percentage)Ordered By: Chioma Springer on 02-03-2025 Hematocrit (Bld) [Volume fraction] 33.0 % Low 37-47 [facility] Comment on above: Performed By: #### L 100.0100 ####[facility] [address] [facility] [id number] Automated lymphocyte count a s percentage of total leukocytesOrdered By: Chioma Springer on 02-03-2025 Lymphocytes/100 WBC Auto (Unsp spec) 17.4 % Low 19-41 [facility] Basophil percentageOrdered B y: Chioma Springer on 02-03-2025 Basophils/100 WBC (Bld) 0.2 % 0-1 [facility] Comment on above: Performed By: #### L 100.0100 ####[facility] [address] [place], [place], [id number] CBC W/Diff, Automatedon 01-09 Absolute Lymph 2.13 X10 3/uL Normal 0.83-4.51 [facility] Comment on above: Performed By: #### L 100.0100 ####[facility] [address] [place], [address] Absolute Neut 8.7 X10 3/uL High 2.0-7.7 [facility] Comment on above: Performed By: #### L 100.0100 ####[facility] [address] [place], [address] IG% 2.000 High 0.0-0.9 [facility] Comment on above: Result Comment: IG% - Immature Granulocytes (promyelocytes, myelocytes and metamyelocytes) > 1% indicates that a LEFT SHIFT is Present. Performed By: #### L 100.0100 ####[facility] [address] [place], [address] Lymphocytes/100 WBC (Bld) 17.4 % Low 19-41 [facility] Comment on above: Performed By: #### L 100.0100 ####[facility] [address] [place], [address] Nucleated RBC (Bld) [#/Vol] 0 10*3/uL Normal 0-5 [facility] Comment on above: Performed By: #### L 100.0100 ####[facility] [address] [place], [address] RDW SD 46.7 fl High 35.1-43.9 [facility] Comment on above: Performed By: #### L 100.0100 ####[facility] [address] [place], [address] Eosinophil percentageOrdered By: Chioma Springer on 02-03-2025 Eosinophils/100 WBC (Bld) 1.1 % 0-5 [facility] Comment on above: Performed By: #### L 100.0100 ####[facility] [address] [place], [address] Erythrocyte distribution wid th ratioOrdered By: Chioma Springer on 02-03-2025 Erythrocyte distribution width (RBC) [Ratio] 13.9 % 11.6-14.6 [facility] Comment on above: Performed By: #### L 100.0100 ####[facility] [address] [place], [address] Erythrocyte distribution wid th standard deviationOrdered By: Chioma Springer on 02-03-2025 Erythrocyte distribution width (RBC) [Ratio] 46.7 fl High 35.1-43.9 [facility] Hemoglobin measurementOrdere d By: Chioma Springer on 02-03-2025 Hemoglobin (Bld) [Mass/Vol] 10.8 g/dL Low 12.0-15.0 [facility] Comment on above: Performed By: #### L 100.0100 ####[facility] [address] [place], [address] Immature granulocytes/100 WB C Auto (Bld)Ordered By: Chioma Springer on 02-03-2025 Immature granulocytes/100 WBC (Bld) 2.000 % High 0.0-0.9 [facility] Comment on above: IG% - Immature Granu locytes (promyelocytes, myelocytes and metamyelocytes) > 1% indicates that a LEFT SHIFT is Present. Laboratory - Chemistry and C hemistry - challengeOrdered By: Chioma Springer on 02-03-2025 Glucose Ql (U) Negative [facility] Laboratory - UrinalysisOrder ed By: Chioma Springer on 02-03-2025 Protein Ql (U) Negative [facility] MCV (mean corpuscular volume ) determinationOrdered By: Chioma Springer on 02-03-2025 MCV (RBC) [Entitic vol] 93.5 fL 81-99 [facility] Comment on above: Performed By: #### L 100.0100 ####[facility] [address] [place], [address] Mean corpuscular hemoglobin (MCH) determinationOrdered By: Chioma Springer on 02-03-2025 MCH (RBC) [Entitic mass] 30.6 pg 27.0-32.0 [facility] Comment on above: Performed By: #### L 100.0100 ####[facility] [address] [place], [place], [id number] Mean corpuscular hemoglobin concentration (MCHC) determinationOrdered By: Chioma Springer on 02-03-2025 MCHC (RBC) [Mass/Vol] 32.7 g/dL 32-36 [facility] Comment on above: Performed By: #### L 100.0100 ####[facility] [address] [place], [address] Mean platelet volume determi nationOrdered By: Chioma Springer on 02-03-2025 Platelet mean volume (Bld) [Entitic vol] 11.7 fL 6.2-12.0 [facility] Comment on above: Performed By: #### L 100.0100 ####[facility] [address] [place], [address] Monocyte percentageOrdered B y: Chioma Springer on 02-03-2025 Monocytes/100 WBC (Bld) 8.6 % 0-10 [facility] Comment on above: Performed By: #### L 100.0100 ####[facility] [address] [place], [address] Neutrophil percentageOrdered By: Chioma Springer on 02-03-2025 Neutrophils/100 WBC (Bld) 70.7 % High 47-70 [facility] Comment on above: Performed By: #### L 100.0100 ####[facility] [address] [place], [address] Nucleated red blood cell per centageOrdered By: Chioma Springer on 02-03-2025 Nucleated RBC/100 WBC (Bld) [Ratio] 0 % 0-5 [facility] Promoter Office Visit Reporton 02-03-2025 Community [facility] Promoter Office Visit Report [facility]'[address], [address] [place] [address] OFFICE VISIT Date of Service: 02/03/25 MR#: [id number] Acct: [id number] Name: MADDIE TORRE Rep #: [id number] : 2000 Provider: AMEE diaz Age/Sex: 24/F Location: [facility] Status: Signed Intake Vital Signs 09/23/24 13:32 01/20/25 14:36 02/03/25 13:42 Height 5 ft 2 in 5 ft 2 in 5 ft 2 in Weight: 190 lb 193 lb 6 oz BMI 34.7 35.4 BP 115/75 108/80 Intake Visit Reasons: 32 wk ob Chief Complaint: 32 Week OB Desktop Administrator Required: No Is patient in pain?: No Allergies No Known Allergies Allergy (Verified 02/03/25 13:45) Medications ???Medication ???Instructions ???Recorded ???Confirmed ???Type ergocalciferol (vitamin D2) 1,250 1,250 mcg PO QWEEK 01/27/2402/03 History mcg (50,000 unit) capsule (Drisdol) ondansetron 4 mg disintegrating 4 mg PO Q6H PRN nausea and 4 02/03/25 Rx tablet vomiting #30 tabs docosahexaenoic acid 200 mg mg PO 08/15/24 02/03/25 History capsule ( DHA) mecobalamin (vitamin B12) 10,000 mcg IM MONTHLY 08/15/24 02/03/25 H istory mcg solution for injection ferrous sulfate 137 mg (45 mg 137 mg PO QDAY 02/03/25 02/03/25 H istory iron) tablet,extended release (Slow Fe) Last Menstrual Period: 06/23/24 Zika: Zika virus screening: Negative : No PFSH PFSH Medical History Spontaneous Family History Grandmother Cancer Lung-Maternal Aunt Cancer Pancreatic- Maternal Social History adopted: No household members: spouse current occupational status: employed 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 current occupational exposures/hazards: No pets and animals: Yes ( taking care of litterbox) pets and animals: cat(s) and fish history of recent travel: No sexually active: Yes Smoking Status: Never smoker alcohol intake: current alcohol intake frequency: holidays/special occasions only details: None while substance use type: former substance user Date of last use: Age 16 experimented and marijuana diet: other well-balanced diet: daily or most days caffeine: No eating out: 1-3 times/week during the past year weight has: remained stable what type of physical activity do you participate in: none seatbelt use: always do you feel safe at home: Yes 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 Date Name GA/Weeks Outcome Route Bth Weight Gen Labor Lgth Anesthesia Del Locatn Provider FOB 01/09/24 5 spontaneous HPI 32 wk ob Details: MADDIE TORRE is a 24 year old who presents for routine OB visit. OB Visit ITZEL Calculator Estimated Delivery Date Method Current WG Current Estimate 04/06/25 Ultrasound #1 31w 1d Other Estimates 03/30/25 LMP (Certain) 32w 1d Expected Delivery Route/Plan Labor Preferences- CB/BF classes: encouraged labor support person: Otoniel labor intervention preferences: [] pain management options preferred: limited! cut cord/dad catch: yes : yes PP control planned: discussed discussed possible routes of delivery and associated risks: [] special requests: [] Specific Issue/Plans Covid status: [] Flu vaccine: [] Tdap vaccine: declined Rhogam: na LARC form signed: yes Problem list reviewed and updated with the most current plan of care details and appropriate orders placed. Relevant counseling for the gestational age provided. Continue routine care and follow up unless otherwise noted in visit notes/problem list details Initial Weight: 166 lb Date -???-???-???-???-???-?? ?-???-???-???-???-???-? ??- EGA Weight BP Urine Prot -???-???-???-???-???-?? ?-???-???-???-???-???-? ??- Glucose FHR FuHt Pres Dilation -???-???-???-???-???-?? ?-???-???-???-???-???-? ??- Effaced St Visit Note 08/22/24 -???-???-???-???-???-?? ?-???-???-???-???-???-? ??- 7w 4d 120 lb (-46 lb) 120/86 -???-???-???-???-???-?? ?-???-???-???-???-???-? ??- 153 -???-???-???-???-???-?? ?-???-???-???-???-???-? ??- KW- CRL cons with dates. declines NIPT. has US appt after today. declined pap today. 09/23/24 -???-???-???-???-???-?? ?-???-???-???-???-???-? ??- 12w 1d 167 lb (+16 oz) 119/81 Negative -???-???-???-???-???-?? ?-???-???-???-???-???-? ??- Negative 150 -???-???-???-???-???-?? ?-???-???-???-???-???-? ??- S (more content not included)... Normal [facility] Platelet countOrdered By: Cristian Springer on 02-03-2025 Platelets (Bld) [#/Vol] 232 10*3/uL 150-450 [facility] Comment on above: Performed By: #### L 100.0100 ####[facility] [address] [place], [address] White blood cell (WBC) count Ordered By: Chioma Springer on 02-03-2025 WBC (Bld) [#/Vol] 12.2 10*3/uL High 4.4-11.0 [facility] Comment on above: Performed By: #### L 100.0100 ####[facility] [address] [place], [address] Laboratory - Chemistry and C hemistry - challengeOrdered By: Amber Dyer on 01-20-2025 Glucose Ql (U) Negative [facility] Laboratory - UrinalysisOrder ed By: Amber Dyer on 01-20-2025 Protein Ql (U) Negative [facility] Office Visit Reporton 01-20-2025 Community [facility] Promoter Office Visit Report [facility]'[address], [address] [place] [address] OFFICE VISIT Date of Service: 01/20/25 MR#: [id number] Acct: [id number] Name: MADDIE TORRE Rep #: [id number] : 2000 Provider: AMAIRANI burnett Age/Sex: 24/F [place] [facility] [place] Status[place] Signed Intake Vital Signs 09/23/24 13:32 01/06/25 12:59 01/20/25 14:36 Height 5 ft 2 in 5 ft 2 in 5 ft 2 in Weight: 190 lb BMI 34.7 BP 115/75 Intake Visit Reasons: 30 wk ob Desktop Administrator Required: No Is patient in pain?: No Allergies No Known Allergies Allergy (Verified 01/20/25 14:38) Medications ???Medication ???Instructions ???Recorded ???Confirmed ???Type ergocalciferol (vitamin D2) 1,250 1,250 mcg PO QWEEK 01/27/2401/20 History mcg (50,000 unit) capsule (Drisdol) ondansetron 4 mg disintegrating 4 mg PO Q6H PRN nausea and 4 01/20/25 Rx tablet vomiting #30 tabs docosahexaenoic acid 200 mg mg PO 08/15/24 01/20/25 History capsule ( DHA) mecobalamin (vitamin B12) 10,000 mcg IM MONTHLY 08/15/24 01/20/25 H istory mcg solution for injection Last Menstrual Period: 06/23/24 Zika: Zika virus screening: Negative : No Have you fallen in the past year?: No PFSH PFSH Medical History Spontaneous Family History Grandmother Cancer Lung-Maternal Aunt Cancer Pancreatic- Maternal Social History adopted: No household members: spouse current occupational status: employed 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 current occupational exposures/hazards: No pets and animals: Yes ( taking care of litterbox) pets and animals: cat(s) and fish history of recent travel: No sexually active: Yes Smoking Status: Never smoker alcohol intake: current alcohol intake frequency: holidays/special occasions only details: None while substance use type: former substance user Date of last use: Age 16 experimented and marijuana diet: other well-balanced diet: daily or most days caffeine: No eating out: 1-3 times/week during the past year weight has: remained stable what type of physical activity do you participate in: none seatbelt use: always do you feel safe at home: Yes 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 Date Name GA/Weeks Outcome Route Bth Weight Gen Labor Lgth Anesthesia Del Locatn Provider FOB 01/09/24 5 spontaneous HPI 30 wk ob Details: MADDIE TORRE is a 24 year old who presents for routine OB visit. OB Visit ITZEL Calculator Estimated Delivery Date Method Current WG Current Estimate 04/06/25 Ultrasound #1 29w 1d Other Estimates 03/30/25 LMP (Certain) 30w 1d Estimated Due Date: 04/06/25 Expected Delivery Route/Plan Labor Preferences- CB/BF classes: [] labor support person: [] labor intervention preferences: [] pain management options preferred: [] cut cord/dad catch: [] : [] PP control planned: [] discussed possible routes of delivery and associated risks: [] special requests: [] Specific Issue/Plans Covid status: [] Flu vaccine: [] Tdap vaccine: [] Rhogam: [] LARC form signed: [] Problem list reviewed and updated with the most current plan of care details and appropriate orders placed. Relevant counseling for the gestational age provided. Continue routine care and follow up unless otherwise noted in visit notes/problem list details Initial Weight: 166 lb Date -???-???-???-???-???-?? ?-???-???-???-???-???-? ??- EGA Weight BP Urine Prot -???-???-???-???-???-?? ?-???-???-???-???-???-? ??- Glucose FHR FuHt Pres Dilation -???-???-???-???-???-?? ?-???-???-???-???-???-? ??- Effaced St Visit Note 08/22/24 -???-???-???-???-???-?? ?-???-???-???-???-???-? ??- 7w 4d 120 lb (-46 lb) 120/86 -???-???-???-???-???-?? ?-???-???-???-???-???-? ??- 153 -???-???-???-???-???-?? ?-???-???-???-???-???-? ??- KW- CRL cons with dates. declines NIPT. has US appt after today. declined pap today. 09/23/24 -???-???-???-???-???-?? ?-???-???-???-???-???-? ??- 12w 1d 167 lb (+16 oz) 119/81 Negative -???-???-???-???-???-?? ?-???-???-???-???-???-? ??- Negative 150 -???-???-???-???-???-?? ?-???-???-???-???-???-? ??- SM- no vb cr amping 10/22/24 -???-???-???-???-???-?? ?-???-???-???-???-???-? ??- 16w 2d 172 lb 4 oz (+6 lb 4 oz) 118/74 Negative -???-???-???-???-? (more content not included)... 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 Standard views obtained, including biometry, anatomy survey, and Doppler studies. FINDINGS Transabdominal imaging Single live intrauterine with cardiac activity 143 beats per minute. Presentation breech. Cervix not visualized. EDITH 15.4 cm, maximum vertical pocket 4.0 cm Anterior right lateral placenta appears within limits, not low-lying, grade 2 DIMENSIONS: Biparietal Diameter: 6.8 cm/27 weeks 2 days, 9% Head Circumference: 25.5 cm/27 weeks 5 days, 6% Abdominal Circumference: 23.3 cm/27 weeks 5 days, 21% Femur Length: 4.8 cm/26 weeks 1 day, 1.4% FL/HC 21%, FL/BPD 71%, FL/HC 19%, CI 75%, HC/AC 1.1 ESTIMATED WEIGHT: 1034 g +/-155 g ESTIMATED WEIGHT PERCENTILE (24+ weeks): 7.2% Estimated age by current ultrasound 27 weeks 2 days, ITZEL 04/07/2025 age by prior ultrasound 27 weeks 2 days, ITZEL 04/07/2025 age by LMP 28 weeks 3 days, ITZEL 03/30/2025 On the current ultrasound there is no evidence of cystic area identified at the choroid plexus. US/OB Limited With Biometrics IMPRESSION: Single live intrauterine with biometry as above. Femur Length: 4.8 cm/26 weeks 1 day, 1.4% ESTIMATED WEIGHT: 1034 g +/-155 g ESTIMATED WEIGHT PERCENTILE (24+ weeks): 7.2% Reading Location: [facility] CC: AMEE Flower; Dr. María Elena Solomon DO Retail Cashier: Signed Normal [facility] Absolute lymphocyte countOrd ered By: María Elena Hodge on 01-06-2025 Lymphocytes Auto (Unsp spec) [#/Vol] 2.08 10*3/uL 0.83-4.51 [facility] Absolute neutrophil countOrd ered By: María Elena Hodge on 01-06-2025 Neutrophils (Bld) [#/Vol] 11.0 10*3/uL High 2.0-7.7 [facility] Automated lymphocyte count a s percentage of total leukocytesOrdered By: María Elena Hodge on 01-06-2025 Lymphocytes/100 WBC Auto (Unsp spec) 14.5 % Low 19-41 [facility] Basophil percentageOrdered B y: María Elena Hodge on 01-06-2025 Basophils/100 WBC (Bld) 0.3 % 0-1 [facility] CBC W/Diff, Automatedon - Absolute Lymph 2.08 X10 3/uL Normal 0.83-4.51 [facility] Comment on above: Performed By: #### L 100.0100, L509.8002, L501.0250, L3890.6006 ####[facility] [address] [place], [address] Absolute Neut 11.0 X10 3/uL High 2.0-7.7 [facility] Comment on above: Performed By: #### L 100.0100, L509.8002, L501.0250, L3890.6006 ####[facility] [address] [place], [address] Basophils/100 WBC (Bld) 0.3 % Normal 0-1 [facility] Comment on above: Performed By: #### L 100.0100, L509.8002, L501.0250, L3890.6006 ####[facility] [address] [place], [address] Eosinophils/100 WBC (Bld) 1.2 % Normal 0-5 [facility] Comment on above: Performed By: #### L 100.0100, L509.8002, L501.0250, L3890.6006 ####[facility] [address] [place], [address] Erythrocyte distribution width (RBC) [Ratio] 12.7 % Normal 11.6-14.6 [facility] Comment on above: Performed By: #### L 100.0100, L509.8002, L501.0250, L3890.6006 ####[facility] [address] [place], [address] Hematocrit (Bld) [Volume fraction] 30.4 % Low 37-47 [facility] Comment on above: Performed By: #### L 100.0100, L509.8002, L501.0250, L3890.6006 ####[facility] [address] [place], [address] Hemoglobin (Bld) [Mass/Vol] 10.2 g/dL Low 12.0-15.0 [facility] Comment on above: Performed By: #### L 100.0100, L509.8002, L501.0250, L3890.6006 ####[facility] [address] [place], [address] IG% 1.700 High 0.0-0.9 [facility] Comment on above: Result Comment: IG% - Immature Granulocytes (promyelocytes, myelocytes and metamyelocytes) > 1% indicates that a LEFT SHIFT is Present. Performed By: #### L 100.0100, L509.8002, L501.0250, L3890.6006 ####[facility] [address] [place], [address] Lymphocytes/100 WBC (Bld) 14.5 % Low 19-41 [facility] Comment on above: Performed By: #### L 100.0100, L509.8002, L501.0250, L3890.6006 ####[facility] [address] [place], [address] MCH (RBC) [Entitic mass] 30.4 pg Normal 27.0-32.0 [facility] Comment on above: Performed By: #### L 100.0100, L509.8002, L501.0250, L3890.6006 ####[facility] [address] [place], [address] MCHC (RBC) [Mass/Vol] 33.6 g/dL Normal 32-36 [facility] Comment on above: Performed By: #### L 100.0100, L509.8002, L501.0250, L3890.6006 ####[facility] [address] [place], [address] MCV (RBC) [Entitic vol] 90.7 fL Normal 81-99 [facility] Comment on above: Performed By: #### L 100.0100, L509.8002, L501.0250, L3890.6006 ####[facility] [address] [place], [address] Monocytes/100 WBC (Bld) 5.4 % Normal 0-10 [facility] Comment on above: Performed By: #### L 100.0100, L509.8002, L501.0250, L3890.6006 ####[facility] [address] [place], [address] Neutrophils/100 WBC (Bld) 76.9 % High 47-70 [facility] Comment on above: Performed By: #### L 100.0100, L509.8002, L501.0250, L3890.6006 ####[facility] [address] [place], [address] Nucleated RBC (Bld) [#/Vol] 0 10*3/uL Normal 0-5 [facility] Comment on above: Performed By: #### L 100.0100, L509.8002, L501.0250, L3890.6006 ####[facility] [address] [place], [address] Platelet mean volume (Bld) [Entitic vol] 11.4 fL Normal 6.2-12.0 [facility] Comment on above: Performed By: #### L 100.0100, L509.8002, L501.0250, L3890.6006 ####[facility] [address] [place], [address] Platelets (Bld) [#/Vol] 268 10*3/uL Normal 150-450 [facility] Comment on above: Performed By: #### L 100.0100, L509.8002, L501.0250, L3890.6006 ####[facility] [address] [place], [address] RBC (Bld) [#/Vol] 3.35 10*6/uL Low 4.2-5.4 [facility] Comment on above: Performed By: #### L 100.0100, L509.8002, L501.0250, L3890.6006 ####[facility] [address] [place], [address] RDW SD 41.2 fl Normal 35.1-43.9 [facility] Comment on above: Performed By: #### L 100.0100, L509.8002, L501.0250, L3890.6006 ####[facility] [address] [place], [address] WBC (Bld) [#/Vol] 14.3 10*3/uL High 4.4-11.0 [facility] Comment on above: Performed By: #### L 100.0100, L509.8002, L501.0250, L3890.6006 ####[facility] [address] [place], [address] Eosinophil percentageOrdered By: María Elena Hodge on 01-06-2025 Eosinophils/100 WBC (Bld) 1.2 % 0-5 [facility] Erythrocyte distribution wid th ratioOrdered By: María Elena Hodge on 01-06-2025 Erythrocyte distribution width (RBC) [Ratio] 12.7 % 11.6-14.6 [facility] Erythrocyte distribution wid th standard deviationOrdered By: María Elena Hodge on 01-06-2025 Erythrocyte distribution width (RBC) [Ratio] 41.2 fl 35.1-43.9 [facility] Glucose Challenge Gest 1H 50 isaiah 01-06-2025 GLU GEST 50g 1H 126 mg/dL Normal 70-140 [facility] Comment on above: Performed By: #### L 100.0100, L509.8002, L501.0250, L3890.6006 ####[facility] [address] [place], [place], [address] Glucose measurement at 2 armani rs post-dose gestational glucose tolerance testOrdered By: María Elena Hodge on 01-06-2025 Glucose [Mass/Vol] 126 mg/dL 70-140 [facility] HIVon 01-06-2025 HIV Non-Reactive Normal Nonreactive [facility] Comment on above: Result Comment: Non- Reactive Reactive Repeatedly reactive samples must be confirmed according to CDC recommended confirmatory algorithms. The subresults for either HIVAG or AHIV can be used as an aid in the selection of the confirmation algorithm for reactive samples. Send out specimens with Reactive results to [facility] for confirmation. Order the HIV antibody detection and differentiation: #[id number] Performed By: #### L 100.0100, L509.8002, L501.0250, L3890.6006 ####[facility] [address] [place], [place], [address] Hematocrit Auto (Bld) [Volum e fraction]Ordered By: María Elena Hodge on 01-06-2025 Hematocrit (Bld) [Volume fraction] 30.4 % Low 37-47 [facility] Hemoglobin measurementOrdere d By: María Elena Hodge on 01-06-2025 Hemoglobin (Bld) [Mass/Vol] 10.2 g/dL Low 12.0-15.0 [facility] Immature granulocytes/100 WB C Auto (Bld)Ordered By: María Elena Hodge on 01-06-2025 Immature granulocytes/100 WBC (Bld) 1.700 % High 0.0-0.9 [facility] Comment on above: IG% - Immature Granu locytes (promyelocytes, myelocytes and metamyelocytes) > 1% indicates that a LEFT SHIFT is Present. Laboratory - Chemistry and C hemistry - challengeOrdered By: Elle Poe on 01-06-2025 Glucose Ql (U) Negative [facility] Laboratory - UrinalysisOrder ed By: Elle Poe on 01-06-2025 Protein Ql (U) Negative [facility] MCV (mean corpuscular volume ) determinationOrdered By: María Elena Hodge on 01-06-2025 MCV (RBC) [Entitic vol] 90.7 fL 81-99 [facility] Mean corpuscular hemoglobin (MCH) determinationOrdered By: María Elena Hodge on 01-06-2025 MCH (RBC) [Entitic mass] 30.4 pg 27.0-32.0 [facility] Mean corpuscular hemoglobin concentration (MCHC) determinationOrdered By: María Elena Hodge on 01-06-2025 MCHC (RBC) [Mass/Vol] 33.6 g/dL 32-36 [facility] Mean platelet volume determi nationOrdered By: María Elena Hodge on 01-06-2025 Platelet mean volume (Bld) [Entitic vol] 11.4 fL 6.2-12.0 [facility] Monocyte percentageOrdered B y: María Elena Hodge on 01-06-2025 Monocytes/100 WBC (Bld) 5.4 % 0-10 [facility] Neutrophil percentageOrdered By: María Elena Hodge on 01-06-2025 Neutrophils/100 WBC (Bld) 76.9 % High 47-70 [facility] No Panel InformationOrdered By: María Elena Hodge on 01-06-2025 HIV (1&2) Antibody Non-Reactive Nonreactive [facility] Comment on above: Non-ReactiveReactive Repeatedly reactive samples must be confirmed according to CDC recommended confirmatory algorithms. The subresults for either HIVAG or AHIV can be used as an aid in the selection of the confirmation algorithm for reactive samples.Send out specimens with Reactive results to [facility] for confirmation.Order the HIV antibody detection and differentiation: #[id number] Nucleated red blood cell per centageOrdered By: María Elena Hodge on 01-06-2025 Nucleated RBC/100 WBC (Bld) [Ratio] 0 % 0-5 [facility] Prom[facility] Office Visit Reporton 01-06-2025 [facility] Office Visit Report [facility] [address] [place] [address], [address] [place] [address] OFFICE VISIT Date of Service: 01/06/25 MR#: [id number] Acct: [id number] Name: MADDIE TORRE Rep #: [id number] : 2000 Provider: AMAIRANI Sainz ams Age/Sex: 24/F [place] [facility] [place] Status: Signed Intake Vital Signs 09/23/24 13:32 12/18/24 14:05 01/06/25 12:59 Height 5 ft 2 in 5 ft 2 in 5 ft 2 in Weight: 188 lb 6 oz BMI 34.4 BP 131/86 H Intake Visit Reasons: 28 wk ob/glucose Chief Complaint: 28wk OB Desktop Administrator Required: No Is patient in pain?: No Allergies No Known Allergies Allergy (Verified 01/06/25 12:56) Medications ???Medication ???Instructions ???Recorded ???Confirmed ???Type ergocalciferol (vitamin D2) 1,250 1,250 mcg PO QWEEK 01/27/2401/06 History mcg (50,000 unit) capsule (Drisdol) ondansetron 4 mg disintegrating 4 mg PO Q6H PRN nausea and 4 01/06/25 Rx tablet vomiting #30 tabs docosahexaenoic acid 200 mg mg PO 08/15/24 01/06/25 History capsule ( DHA) mecobalamin (vitamin B12) 10,000 mcg IM MONTHLY 08/15/24 01/06/25 H istory mcg solution for injection Last Menstrual Period: 06/23/24 : No PFSH PFSH Medical History Spontaneous Family History Grandmother Cancer Lung-Maternal Aunt Cancer Pancreatic- Maternal Social History adopted: No household members: spouse current occupational status: employed 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 current occupational exposures/hazards: No pets and animals: Yes ( taking care of litterbox) pets and animals: cat(s) and fish history of recent travel: No sexually active: Yes Smoking Status: Never smoker alcohol intake: current alcohol intake frequency: holidays/special occasions only details: None while substance use type: former substance user Date of last use: Age 16 experimented and marijuana diet: other well-balanced diet: daily or most days caffeine: No eating out: 1-3 times/week during the past year weight has: remained stable what type of physical activity do you participate in: none seatbelt use: always do you feel safe at home: Yes 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 Date Name GA/Weeks Outcome Route Bth Weight Infant Gen Labor Lgth Anesthesia Del Locatn Provider FOB 01/09/24 5 spontaneous HPI 28 wk ob/glucose Details: MADDIE TORRE is a 24 year old who presents for routine OB visit. OB Visit ITZEL Calculator Estimated Delivery Date Method Current WG Current Estimate 03/30/25 LMP (Certain) 28w 1d Expected Delivery Route/Plan Labor Preferences- CB/BF classes: [] labor support person: [] labor intervention preferences: [] pain management options preferred: [] cut cord/dad catch: [] : [] PP control planned: [] discussed possible routes of delivery and associated risks: [] special requests: [] Specific Issue/Plans Covid status: [] Flu vaccine: [] Tdap vaccine: [] Rhogam: [] LARC form signed: [] Problem list reviewed and updated with the most current plan of care details and appropriate orders placed. Relevant counseling for the gestational age provided. Continue routine care and follow up unless otherwise noted in visit notes/problem list details Initial Weight: 120 lb Date -???-???-???-???-???-?? ?-???-???-???-???-???-? ??- EGA Weight BP Urine Prot -???-???-???-???-???-?? ?-???-???-???-???-???-? ??- Glucose FHR FuHt Pres Dilation -???-???-???-???-???-?? ?-???-???-???-???-???-? ??- Effaced St Visit Note 08/22/24 -???-???-???-???-???-?? ?-???-???-???-???-???-? ??- 8w 4d 120 lb (+0 oz) 120/86 -???-???-???-???-???-?? ?-???-???-???-???-???-? ??- 153 -???-???-???-???-???-?? ?-???-???-???-???-???-? ??- KW- CRL cons with dates. declines NIPT. has US appt after today. declined pap today. 09/23/24 -???-???-???-???-???-?? ?-???-???-???-???-???-? ??- 13w 1d 167 lb (+47 lb) 119/81 Negative -???-???-???-???-???-?? ?-???-???-???-???-???-? ??- Negative 150 -???-???-???-???-???-?? ?-???-???-???-???-???-? ??- SM- no vb cr amping 10/22/24 -???-???-???-???-???-?? ?-???-???-???-???-???-? ??- 17w 2d 172 lb 4 oz (+52 lb 4 oz) 118/74 Negative -???-???-???-???-???-?? ?-???-???-???-???-???-? ??- Negative 145 -???-???-???-???-???-?? ?-???-???-???-???-???-? ??- MH-No VB. No (more content not included)... Normal [facility] Platelet countOrdered By: Kendall Hodge on 01-06-2025 Platelets (Bld) [#/Vol] 268 10*3/uL 150-450 [facility] RBC Auto (Bld) [#/Vol]Ordere d By: María Elena Hodge on 01-06-2025 RBC (Bld) [#/Vol] 3.35 10*6/uL Low 4.2-5.4 [facility] Syphilis Antibodieson 2024 Syphilis Abs Non-Reactive Normal Nonreactive [facility] Comment on above: Performed By: #### L 100.0100, L509.8002, L501.0250, L3890.6006 ####[facility] [id number] [place], [address] White blood cell (WBC) count Ordered By: María Elena Hodge on 01-06-2025 WBC (Bld) [#/Vol] 14.3 10*3/uL High 4.4-11.0 [facility] Laboratory - Chemistry and C hemistry - challengeOrdered By: María Elena Hodge on 12-18-2024 Glucose Ql (U) Negative [facility] - UrinalysisOrder ed By: María Elena Hodge on 12-18-2024 Protein Ql (U) Negative [facility] Office Visit Reporton 12-18-2024 [facility] Office Visit Report [facility] [address], [address] [place] [address] OFFICE VISIT Date of Service: 12/18/24 MR#: [id number] Acct: [id number] Name: MADDIE TORRE Rep #: [id number] : 2000 Provider: Dr. María Elena Jama DO Age/Sex: 24/F [place] [facility] [place]: Signed Intake Vital Signs 09/23/24 13:32 11/18/24 15:40 12/18/24 14:03 12/18/24 14:05 Height 5 ft 2 in 5 ft 2 in 5 ft 2 in 5 ft 2 in Weight: 181 lb 6 oz BMI 33.1 BP 112/77 Intake Visit Reasons: 25 wk ob Desktop Administrator Required: No Is patient in pain?: No Allergies No Known Allergies Allergy (Verified 12/18/24 14:03) Medications ???Medication ???Instructions ???Recorded ???Confirmed ???Type ergocalciferol (vitamin D2) 1,250 1,250 mcg PO QWEEK 01/27/2412/18 History mcg (50,000 unit) capsule (Drisdol) ondansetron 4 mg disintegrating 4 mg PO Q6H PRN nausea and 4 12/18/24 Rx tablet vomiting #30 tabs docosahexaenoic acid 200 mg mg PO 08/15/24 12/18/24 History capsule ( DHA) mecobalamin (vitamin B12) 10,000 mcg IM MONTHLY 08/15/24 12/18/24 H istory mcg solution for injection Last Menstrual Period: 06/23/24 Zika: Zika virus screening: Negative : No PFSH PFSH Medical History Spontaneous Family History Grandmother Cancer Lung-Maternal Aunt Cancer Pancreatic- Maternal Social History adopted: No household members: spouse current occupational status: employed 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 current occupational exposures/hazards: No pets and animals: Yes ( taking care of litterbox) pets and animals: cat(s) and fish history of recent travel: No sexually active: Yes Smoking Status: Never smoker alcohol intake: current alcohol intake frequency: holidays/special occasions only details: None while substance use type: former substance user Date of last use: Age 16 experimented and marijuana diet: other well-balanced diet: daily or most days caffeine: No eating out: 1-3 times/week during the past year weight has: remained stable what type of physical activity do you participate in: none seatbelt use: always do you feel safe at home: Yes 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 Date Name GA/Weeks Outcome Route Bth Weight Gen Labor Lgth Anesthesia Del Locatn Provider FOB 01/09/24 5 spontaneous HPI 25 wk ob Details: MADDIE TORRE is a 24 year old who presents for routine OB visit. OB Visit ITZEL Calculator Estimated Delivery Date Method Current WG Current Estimate 03/30/25 LMP (Certain) 25w 3d Expected Delivery Route/Plan Labor Preferences- CB/BF classes: [] labor support person: [] labor intervention preferences: [] pain management options preferred: [] cut cord/dad catch: [] : [] PP control planned: [] discussed possible routes of delivery and associated risks: [] special requests: [] Specific Issue/Plans Covid status: [] Flu vaccine: [] Tdap vaccine: [] Rhogam: [] LARC form signed: [] Problem list reviewed and updated with the most current plan of care details and appropriate orders placed. Relevant counseling for the gestational age provided. Continue routine care and follow up unless otherwise noted in visit notes/problem list details Initial Weight: 120 lb Date -???-???-???-???-???-?? ?-???-???-???-???-???-? ??- EGA Weight BP Urine Prot -???-???-???-???-???-?? ?-???-???-???-???-???-? ??- Glucose FHR FuHt Pres Dilation -???-???-???-???-???-?? ?-???-???-???-???-???-? ??- Effaced St Visit Note 08/22/24 -???-???-???-???-???-?? ?-???-???-???-???-???-? ??- 8w 4d 120 lb (+0 oz) 120/86 -???-???-???-???-???-?? ?-???-???-???-???-???-? ??- 153 -???-???-???-???-???-?? ?-???-???-???-???-???-? ??- KW- CRL cons with dates. declines NIPT. has US appt after today. declined pap today. 09/23/24 -???-???-???-???-???-?? ?-???-???-???-???-???-? ??- 13w 1d 167 lb (+47 lb) 119/81 Negative -???-???-???-???-???-?? ?-???-???-???-???-???-? ??- Negative 150 -???-???-???-???-???-?? ?-???-???-???-???-???-? ??- SM- no vb cr amping 10/22/24 -???-???-???-???-???-?? ?-???-???-???-???-???-? ??- 17w 2d 172 lb 4 oz (+52 lb 4 oz) 118/74 Negative -???-???-???-???-???-?? ?-???-???-???-???-???-? ??- Negative 145 -???-???-???-???-?? (more content not included)... Normal [facility] - Chemistry and C hemistry - challengeOrdered By: Chioma Springer on 11-18-2024 Glucose Ql (U) Negative [facility] - UrinalysisOrder ed By: Chioma Gian on 11-18-2024 Protein Ql (U) Negative [facility] Office Visit Reporton 11-18-2024 [facility] Office Visit Report [facility] [address], [address] [place] [address] OFFICE VISIT Date of Service: 11/18/24 MR#: [id number] Acct: [id number] Name: MADDIE TORRE Rep #: [id number] : 2000 Provider: AMEE diaz Age/Sex: 24/F [place] [facility] [place] Status: Signed Intake Vital Signs 09/23/24 13:32 10/22/24 14:18 11/18/24 15:40 Height 5 ft 2 in 5 ft 2 in 5 ft 2 in Weight: 177 lb 2 oz BMI 32.3 BP 114/72 Intake Visit Reasons: 21 wk ob Chief Complaint: 21 Week OB Desktop Administrator Required: No Is patient in pain?: No Allergies No Known Allergies Allergy (Verified 11/18/24 15:39) Medications ???Medication ???Instructions ???Recorded ???Confirmed ???Type ergocalciferol (vitamin D2) 1,250 1,250 mcg PO QWEEK 01/27/2411/18 History mcg (50,000 unit) capsule (Drisdol) ondansetron 4 mg disintegrating 4 mg PO Q6H PRN nausea and 4 11/18/24 Rx tablet vomiting #30 tabs docosahexaenoic acid 200 mg mg PO 08/15/24 11/18/24 History capsule ( DHA) mecobalamin (vitamin B12) 10,000 mcg IM MONTHLY 08/15/24 11/18/24 H istory mcg solution for injection Last Menstrual Period: 06/23/24 Zika: Zika virus screening: Negative : No PFSH PFSH Medical History Spontaneous Family History Grandmother Cancer Lung-Maternal Aunt Cancer Pancreatic- Maternal Social History adopted: No household members: spouse current occupational status: employed 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 current occupational exposures/hazards: No pets and animals: Yes ( taking care of litterbox) pets and animals: cat(s) and fish history of recent travel: No sexually active: Yes Smoking Status: Never smoker alcohol intake: current alcohol intake frequency: holidays/special occasions only details: None while substance use type: former substance user Date of last use: Age 16 experimented and marijuana diet: other well-balanced diet: daily or most days caffeine: No eating out: 1-3 times/week during the past year weight has: remained stable what type of physical activity do you participate in: none seatbelt use: always do you feel safe at home: Yes 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 Date Name GA/Weeks Outcome Route Bth Weight Infant Gen Labor Lgth Anesthesia Del [facility] Provider FOB 01/09/24 5 spontaneous HPI 21 wk ob Details: MADDIE TORRE is a 24 year old who presents for routine OB visit. OB Visit ITZEL Calculator Estimated Delivery Date Method Current WG Current Estimate 03/30/25 LMP (Certain) 21w 1d Expected Delivery Route/Plan Labor Preferences- CB/BF classes: [] labor support person: [] labor intervention preferences: [] pain management options preferred: [] cut cord/dad catch: [] : [] PP control planned: [] discussed possible routes of delivery and associated risks: [] special requests: [] Specific Issue/Plans Covid status: [] Flu vaccine: [] Tdap vaccine: [] Rhogam: [] LARC form signed: [] Problem list reviewed and updated with the most current plan of care details and appropriate orders placed. Relevant counseling for the gestational age provided. Continue routine care and follow up unless otherwise noted in visit notes/problem list details Initial Weight: 120 lb Date -???-???-???-???-???-?? ?-???-???-???-???-???-? ??- EGA Weight BP Urine Prot -???-???-???-???-???-?? ?-???-???-???-???-???-? ??- Glucose FHR FuHt Pres Dilation -???-???-???-???-???-?? ?-???-???-???-???-???-? ??- Effaced St Visit Note 08/22/24 -???-???-???-???-???-?? ?-???-???-???-???-???-? ??- 8w 4d 120 lb (+0 oz) 120/86 -???-???-???-???-???-?? ?-???-???-???-???-???-? ??- 153 -???-???-???-???-???-?? ?-???-???-???-???-???-? ??- KW- CRL cons with dates. declines NIPT. has US appt after today. declined pap today. 09/23/24 -???-???-???-???-???-?? ?-???-???-???-???-???-? ??- 13w 1d 167 lb (+47 lb) 119/81 Negative -???-???-???-???-???-?? ?-???-???-???-???-???-? ??- Negative 150 -???-???-???-???-???-?? ?-???-???-???-???-???-? ??- SM- no vb cr amping 10/22/24 -???-???-???-???-???-?? ?-???-???-???-???-???-? ??- 17w 2d 172 lb 4 oz (+52 lb 4 oz) 118/74 Negative -???-???-???-???-???-?? ?-???-???-???-???-???-? ??- Negative 145 -???-???-???-???-???-? (more content not included)... Normal [facility] OB Anatomy w/ Transvaginalon 11-10-2024 OB Anatomy w/ Transvaginal [facility] [address], [place] [id number] OB Anatomy w/ Transvaginal MR#: [id number] Acct: [id number] Name: MADDIE TORRE Rep #: [id number] : 2000 F 24 From: Franklyn danielle MD PCP: AMEE Quinteros Status: [facility] Study: OB Anatomy w/ Transvaginal Date of Exam: 11/10 Exam# [id number] Ordering Dr: Radha Peters PROCEDURE: OB ANATOMY W/ TRANSVAGINAL REASON FOR EXAM: Anatomy scan. COMPARISON: Comparison is made with prior study dated August 22, 2024. FINDINGS Number: 1 Position: Breech Placental Position: Anterior and right lateral. No evidence of low-lying placenta. Placental Abnormalities: None. DIMENSIONS: Biparietal Diameter: 4.35 cm: 19 weeks and 1 day: 17 percentile/ Head Circumference: 15.9 cm: 18 weeks and 5 days: 4th percentile/ Abdominal Circumference: 13.95 cm: 19 weeks and 2 days: 24 percentile/ Femur Length: 2.75 cm: 18 weeks and 3 days: 4th percentile/ ESTIMATED WEIGHT: 266 g plus/-40 g ESTIMATED WEIGHT PERCENTILE (24+ weeks): ESTIMATED GESTATIONAL AGE: Baseline: 20 weeks and 0 days By Ultrasound: 18 weeks and 6 days ESTIMATED DATE OF DELIVERY: Baseline: March 30, 2025 By Ultrasound: April 07, 2025 BIOPHYSICAL ASSESSMENT: Amniotic Fluid Volume: Subjectively normal. Amniotic Fluid Index: Within normal limits (8-24 cm normal range) Cardiac Motion: 144 beats per minute (average) Trunk and Limb Motion: Present. MATERNAL ANATOMY: Adnexa: Neither maternal ovary is successfully identified. Cervical Length (if measured): ANATOMY: Spine: Unremarkable. Cranium: Unremarkable. Cerebellum: Unremarkable. Cisterna Magna: Unremarkable. Cavum Septum Pellucidi: Present. Lateral Ventricles: Unremarkable. Choroid Plexus: Tiny cysts are seen within the choroid plexus bilaterally. Midline Falx: Present. Nuchal Fold: Upper Lip: Grossly intact. Heart: Normal four-chamber view. Ventricular Outflow Tracts: Unremarkable. Stomach: Unremarkable. Kidneys: Unremarkable. Bladder: Midline. Umbilical Cord: Three vessel cord. Normal and placental insertions. Extremities: Unremarkable. US/OB Anatomy w/ Transvaginal IMPRESSION: Single live intrauterine gestation with a mean gestational age of 19 weeks and 2 days. The measurements obtained today fall with the normal expected range. Small cysts in both choroid plexus. Reading Location: [id number] CC: AMEE Flower; Dr. 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 gonorrhoeae PCR Negative for N. gonorrhoeae Normal [facility] Comment on above: Performed By: #### M 8200.2203 #### [facility] [address] [place], [address] Community Health Promoter Office Visit Reporton 10-22-2024 Community Health Promoter Office Visit Report [facility] [address], [address] [place] [address] OFFICE VISIT Date of Service: 10/22/24 MR#: [id number] Acct: [id number] Name: MADDIE TORRE Rep #: [id number] : 2000 Provider: AMEE diaz Age/Sex: 24/F [place] [facility] [place] Status: Signed Intake Vital Signs 09/23/24 13:32 10/22/24 14:18 Height 5 ft 2 in 5 ft 2 in Weight: 172 lb 4 oz BMI 31.5 BP 118/74 Intake Visit Reasons: 17 wk ob Chief Complaint: 17 Week OB Desktop Administrator Required: No Is patient in pain?: No Allergies No Known Allergies Allergy (Verified 10/22/24 14:20) Medications ???Medication ???Instructions ???Recorded ???Confirmed ???Type ergocalciferol (vitamin D2) 1,250 1,250 mcg PO QWEEK 01/27/2410/22 History mcg (50,000 unit) capsule (Drisdol) ondansetron 4 mg disintegrating 4 mg PO Q6H PRN nausea and 08/09/ 4 10/22/24 Rx tablet vomiting #30 tabs docosahexaenoic acid 200 mg mg PO 08/15/24 10/22/24 History capsule ( DHA) mecobalamin (vitamin B12) 10,000 mcg IM MONTHLY 08/15/24 10/22/24 H istory mcg solution for injection Last Menstrual Period: 06/23/24 Zika: Zika virus screening: Negative : No PFSH PFSH Medical History Spontaneous Family History Grandmother Cancer Lung-Maternal Aunt Cancer Pancreatic- Maternal Social History adopted: No household members: spouse current occupational status: employed 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 current occupational exposures/hazards: No pets and animals: Yes ( taking care of litterbox) pets and animals: cat(s) and fish history of recent travel: No sexually active: Yes Smoking Status: Never smoker alcohol intake: current alcohol intake frequency: holidays/special occasions only details: None while substance use type: former substance user Date of last use: Age 16 experimented and marijuana diet: other well-balanced diet: daily or most days caffeine: No eating out: 1-3 times/week during the past year weight has: remained stable what type of physical activity do you participate in: none seatbelt use: always do you feel safe at home: Yes 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 Date Name GA/Weeks Outcome Route Bth Weight Gen Labor Lgth Anesthesia Del [facility] Provider FOB 01/09/24 5 spontaneous HPI 17 wk ob Details: MADDIE TORRE is a 24 year old who presents for routine OB visit. OB Visit ITZEL Calculator Estimated Delivery Date Method Current WG Current Estimate 03/30/25 LMP (Certain) 17w 2d Expected Delivery Route/Plan Labor Preferences- CB/BF classes: [] labor support person: [] labor intervention preferences: [] pain management options preferred: [] cut cord/dad catch: [] : [] PP control planned: [] discussed possible routes of delivery and associated risks: [] special requests: [] Specific Issue/Plans Covid status: [] Flu vaccine: [] Tdap vaccine: [] Rhogam: [] LARC form signed: [] Problem list reviewed and updated with the most current plan of care details and appropriate orders placed. Relevant counseling for the gestational age provided. Continue routine care and follow up unless otherwise noted in visit notes/problem list details Initial Weight: 120 lb Date -???-???-???-???-???-?? ?-???-???-???-???-???-? ??- EGA Weight BP Urine Prot -???-???-???-???-???-?? ?-???-???-???-???-???-? ??- Glucose FHR FuHt Pres Dilation -???-???-???-???-???-?? ?-???-???-???-???-???-? ??- Effaced St Visit Note 08/22/24 -???-???-???-???-???-?? ?-???-???-???-???-???-? ??- 8w 4d 120 lb (+0 oz) 120/86 -???-???-???-???-???-?? ?-???-???-???-???-???-? ??- 153 -???-???-???-???-???-?? ?-???-???-???-???-???-? ??- KW- CRL cons with dates. declines NIPT. has US appt after today. declined pap today. 09/23/24 -???-???-???-???-???-?? ?-???-???-???-???-???-? ??- 13w 1d 167 lb (+47 lb) 119/81 Negative -???-???-???-???-???-?? ?-???-???-???-???-???-? ??- Negative 150 -???-???-???-???-???-?? ?-???-???-???-???-???-? ??- SM- no vb cr amping 10/22/24 -???-???-???-???-???-?? ?-???-???-???-???-???-? ??- 17w 2d 172 lb 4 oz (+52 lb 4 oz) 118/74 Negative -???-???-???-???-???-?? ?-???-???-???-???-???-? ??- Negative 145 -???-???-???-???-???-?? ?-???-???-???-???-???-? ??- (more content not included)... Normal [facility] - Chemistry and C hemistry - challengeon 09-23-2024 Glucose Ql (U) Negative [facility] - Urinalysison Protein Ql (U) Negative [facility] Promoter Office Visit Reporton 09-23-2024 [facility] Promoter Office [facility], [address] [place] [address] OFFICE VISIT Date of Service: 09/23/24 MR#: [id number] Acct: [id number] Name: MADDIE TORRE Rep #: [id number] : 2000 Provider: Dr. Radha stanford MD Age/Sex: 24/F [place] [facility] [place] Status: Signed Intake Vital Signs 08/13/24 14:05 08/22/24 14:24 09/23/24 13:32 Height 5 ft 2 in 5 ft 2 in 5 ft 2 in Weight: 167 lb BMI 30.5 BP 119/81 H Intake Visit Reasons: 12wk OB Desktop Administrator Required: No Is patient in pain?: No Feel stressed/tense/nervous/ anxious/difficulty sleeping: not at all Allergies No Known Allergies Allergy (Verified 09/23/24 13:32) Medications ???Medication ???Instructions ???Recorded ???Confirmed ???Type ergocalciferol (vitamin D2) 1,250 1,250 mcg PO QWEEK 01/27/24 09/23/24 History mcg (50,000 unit) capsule (Drisdol) ondansetron 4 mg disintegrating 4 mg PO Q6H PRN nausea and 08/09/24 09/23/24 Rx tablet vomiting #30 tabs docosahexaenoic acid 200 mg mg PO 08/15/24 09/23/24 History capsule ( DHA) mecobalamin (vitamin B12) 10,000 mcg IM MONTHLY 08/15/24 09/23/24 History mcg solution for injection azithromycin 500 mg tablet 1,000 mg (2 x 500 mg) PO ONCE #2 08/26/24 09/23/24 Rx (Zithromax) tabs Last Menstrual Period: 06/23/24 Zika: Zika virus screening: Negative : No Have you fallen in the past year?: No PFSH PFSH Medical History Spontaneous Family History Grandmother Cancer Lung-Maternal Aunt Cancer Pancreatic- Maternal Social History adopted: No household members: spouse current occupational status: employed 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 current occupational exposures/hazards: No pets and animals: Yes ( taking care of litterbox) pets and animals: cat(s) and fish history of recent travel: No sexually active: Yes Smoking Status: Never smoker alcohol intake: current alcohol intake frequency: holidays/special occasions only details: None while substance use type: former substance user Date of last use: Age 16 experimented and marijuana diet: other well-balanced diet: daily or most days caffeine: No eating out: 1-3 times/week during the past year weight has: remained stable what type of physical activity do you participate in: none seatbelt use: always do you feel safe at home: Yes 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 Date Name GA/Weeks Outcome Route Bth Weight Infant Gen Labor Lgth Anesthesia Del Locatn Provider FOB 01/09/24 5 spontaneous HPI 12wk OB Details: MADDIE TORRE is a 24 year old who presents for routine OB visit. OB Visit ITZEL Calculator Estimated Delivery Date Method Current WG Current Estimate 03/30/25 LMP (Certain) 13w 1d Expected Delivery Route/Plan Labor Preferences- CB/BF classes: [] labor support person: [] labor intervention preferences: [] pain management options preferred: [] cut cord/dad catch: [] : [] PP control planned: [] discussed possible routes of delivery and associated risks: [] special requests: [] Specific Issue/Plans Covid status: [] Flu vaccine: [] Tdap vaccine: [] Rhogam: [] LARC form signed: [] Problem list reviewed and updated with the most current plan of care details and appropriate orders placed. Relevant counseling for the gestational age provided. Continue routine care and follow up unless otherwise noted in visit notes/problem list details Initial Weight: 120 lb Date -???-???-???-???-???-?? ?-???-???-???-???-???-? ??- EGA Weight BP Urine Prot -???-???-???-???-???-?? ?-???-???-???-???-???-? ??- Glucose FHR FuHt Pres Dilation -???-???-???-???-???-?? ?-???-???-???-???-???-? ??- Effaced St Visit Note 08/22/24 -???-???-???-???-???-?? ?-???-???-???-???-???-? ??- 8w 4d 120 lb (+0 oz) 120/86 -???-???-???-???-???-?? ?-???-???-???-???-???-? ??- 153 -???-???-???-???-???-?? ?-???-???-???-???-???-? ??- KW- CRL cons with dates. declines NIPT. has US appt after today. declined pap today. 09/23/24 -???-???-???-???-???-?? ?-???-???-???-???-???-? ??- 13w 1d 167 lb (+47 lb) 119/81 Negative -???-???-???-???-???-?? ?-???-???-???-???-???-? ??- Negative 150 -???-???-???-???-???-?? ?-???-???-???-???-???-? ??- SM- no vb cr amping ACOG First Trimester First (more content not included)... Normal [facility] Miscellaneous procedureOrder ed By: Elle Poe on 09-15-2024 Miscellaneous Test Comment SEE SCANNED REPORT [facility] NATERAon 09-15-2024 NATURA SEE SCANNED REPORT Normal [facility] Comment on above: Performed By: #### L 900.0098 #### [facility] [address] [place], [address] Chlamydia/GC SHAYLEE aptimaon CHLAMY,NUC ACID Positive Abnormal Negative [facility] Comment on above: Performed By: #### M 100.2200, L7000.1800 ####[facility] [address] [place], [address] GC BY NUC ACID Negative Normal Negative [facility] Comment on above: Result Comment: Perf ormed at: =G - [facility] [address] [place] [id number] Delinquency Prevention Officer: Ilsa Crystal MD, Phone: [phone] Performed By: #### M 100.2200, L7000.1800 ####[facility] [address] [place], [place], [id number] HIV - WCHon 08-25-2024 HIV Non-Reactive Normal Nonreactive [facility] Comment on above: Order Comment: Reaso n for Exam: Performed By: #### L 3890.6300, L3890.6005, L509.8000, BTS, L3890.6100, L100.0100, L509.4005, L501.9985 ####[facility] [id number] [place], [address] Hepatitis B Surface Antigeno n 08-25-2024 HEP B Surf Ag Non-Reactive Normal Nonreactive [facility] Comment on above: Order Comment: Reaso n for Exam: Performed By: #### L 3890.6300, L3890.6005, L509.8000, BTS, L3890.6100, L100.0100, L509.4005, L501.9985 ####[facility] [id number] [place], [address] Hepatitis C Antibodyon 08-25 Hepatitis C AB Non-Reactive Normal Nonreactive [facility] Comment on above: Order Comment: Reaso n for Exam: Result Comment: Non Reactive: < 0.8 Equivocal: >/= 0.8 to < 1.0 Reactive: >/= 1.0 The CDC requires that a reactive/equivocal HCV antibody result be sent out for confirmation. HCV Quant by PCR testing. Performed By: #### L 3890.6300, L3890.6005, L509.8000, BTS, L3890.6100, L100.0100, L509.4005, L501.9985 ####[facility] [address] [place], [address] L509.8000on 08-25-2024 Syphilis Abs Non-Reactive Normal [facility] Comment on above: Order Comment: Reaso n for Exam: Performed By: #### L 3890.6300, L3890.6005, L509.8000, BTS, L3890.6100, L100.0100, L509.4005, L501.9985 ####[facility] [address] [place], [address] Rubella IgGon 08-25-2024 Rubella IgG Reactive Normal Nonreactive [facility] Comment on above: Order Comment: Reaso n for Exam: Result Comment: Anti body Results Interpretation of Immune Status Non Reactive Presumed Non-Immune Equivocal Equivocal Reactive Presumed Immune Performed By: #### L 3890.6300, L3890.6005, L509.8000, BTS, L3890.6100, L100.0100, L509.4005, L501.9985 ####[facility] [address] [place], [address] Urine Cultureon 08-23-2024 URC Culture exhibits no growth. Normal [facility] Comment on above: Performed By: #### M 100.2200, L7000.1800 ####[facility] [address] [place], [address] Absolute neutrophil countOrd ered By: Elle Poe on 08-22-2024 Neutrophils (Bld) [#/Vol] 6.2 10*3/uL 2.0-7.7 [facility] Basophil percentageOrdered B y: Elle Poe on 08-22-2024 Basophils/100 WBC (Bld) 0.4 % 0-1 [facility] C. trachomatis rRNA SHAYLEE+prob e Ql (Unsp spec)Ordered By: Elle Poe on 08-22-2024 Chlamydia DNA (SHAYLEE) Positive High Negative [facility] CBC W/Diff, Automatedon - Absolute Lymph 2.27 X10 3/uL Normal 0.83-4.51 [facility] Comment on above: Performed By: #### L 3890.6300, L3890.6005, L509.8000, BTS, L3890.6100, L100.0100, L509.4005, L501.9985 #### [facility] [address] [place], [address] Absolute Neut 6.2 X10 3/uL Normal 2.0-7.7 [facility] Comment on above: Performed By: #### L 3890.6300, L3890.6005, L509.8000, BTS, L3890.6100, L100.0100, L509.4005, L501.9985 #### [facility] [address] [place], [address] Basophils/100 WBC (Bld) 0.4 % Normal 0-1 [facility] Comment on above: Performed By: #### L 3890.6300, L3890.6005, L509.8000, BTS, L3890.6100, L100.0100, L509.4005, L501.9985 #### [facility] [address] [place], [address] Eosinophils/100 WBC (Bld) 2.2 % Normal 0-5 [facility] Comment on above: Performed By: #### L 3890.6300, L3890.6005, L509.8000, BTS, L3890.6100, L100.0100, L509.4005, L501.9985 #### [facility] [address] [facility] [place], [address] Erythrocyte distribution width (RBC) [Ratio] 12.2 % Normal 11.6-14.6 [facility] Comment on above: Performed By: #### L 3890.6300, L3890.6005, L509.8000, BTS, L3890.6100, L100.0100, L509.4005, L501.9985 #### [facility] [address] [place], [address] Hematocrit (Bld) [Volume fraction] 37.7 % Normal 37-47 [facility] Comment on above: Performed By: #### L 3890.6300, L3890.6005, L509.8000, BTS, L3890.6100, L100.0100, L509.4005, L501.9985 #### [facility] [address] [place], [address] Hemoglobin (Bld) [Mass/Vol] 12.7 g/dL Normal 12.0-15.0 [facility] Comment on above: Performed By: #### L 3890.6300, L3890.6005, L509.8000, BTS, L3890.6100, L100.0100, L509.4005, L501.9985 #### [facility] [address] [place], [address] IG% 0.400 Normal 0.0-0.9 [facility] Comment on above: Result Comment: IG% - Immature Granulocytes (promyelocytes, myelocytes and metamyelocytes) > 1% indicates that a LEFT SHIFT is Present. Performed By: #### L 3890.6300, L3890.6005, L509.8000, BTS, L3890.6100, L100.0100, L509.4005, L501.9985 #### [facility] [address] [place], [address] Lymphocytes/100 WBC (Bld) 23.7 % Normal 19-41 [facility] Comment on above: Performed By: #### L 3890.6300, L3890.6005, L509.8000, BTS, L3890.6100, L100.0100, L509.4005, L501.9985 #### [facility] [address] [place], [address] MCH (RBC) [Entitic mass] 29.5 pg Normal 27.0-32.0 [facility] Comment on above: Performed By: #### L 3890.6300, L3890.6005, L509.8000, BTS, L3890.6100, L100.0100, L509.4005, L501.9985 #### [facility] [address] [place], [address] MCHC (RBC) [Mass/Vol] 33.7 g/dL Normal 32-36 [facility] Comment on above: Performed By: #### L 3890.6300, L3890.6005, L509.8000, BTS, L3890.6100, L100.0100, L509.4005, L501.9985 #### [facility] [address] [place], [address] MCV (RBC) [Entitic vol] 87.5 fL Normal 81-99 [facility] Comment on above: Performed By: #### L 3890.6300, L3890.6005, L509.8000, BTS, L3890.6100, L100.0100, L509.4005, L501.9985 #### [facility] [address] [place], [address] Monocytes/100 WBC (Bld) 8.4 % Normal 0-10 [facility] Comment on above: Performed By: #### L 3890.6300, L3890.6005, L509.8000, BTS, L3890.6100, L100.0100, L509.4005, L501.9985 #### [facility] [address] [place], [address] Neutrophils/100 WBC (Bld) 64.9 % Normal 47-70 [facility] Comment on above: Performed By: #### L 3890.6300, L3890.6005, L509.8000, BTS, L3890.6100, L100.0100, L509.4005, L501.9985 #### [facility] [address] [place], [address] Nucleated RBC (Bld) [#/Vol] 0 10*3/uL Normal 0-5 [facility] Comment on above: Performed By: #### L 3890.6300, L3890.6005, L509.8000, BTS, L3890.6100, L100.0100, L509.4005, L501.9985 #### [facility] [address] [place], [address] ( Platelet mean volume (Bld) [Entitic vol] 11.8 fL Normal 6.2-12.0 [facility] Comment on above: Performed By: #### L 3890.6300, L3890.6005, L509.8000, BTS, L3890.6100, L100.0100, L509.4005, L501.9985 #### [facility] [address] [place], [address] ([address] Platelets (Bld) [#/Vol] 264 10*3/uL Normal 150-450 [facility] Comment on above: Performed By: #### L 3890.6300, L3890.6005, L509.8000, BTS, L3890.6100, L100.0100, L509.4005, L501.9985 #### [facility] [address] [place], [address] (295 RBC (Bld) [#/Vol] 4.31 10*6/uL Normal 4.2-5.4 [facility] Comment on above: Performed By: #### L 3890.6300, L3890.6005, L509.8000, BTS, L3890.6100, L100.0100, L509.4005, L501.9985 #### [facility] [address] [place], [address] RDW SD 39.5 fl Normal 35.1-43.9 [facility] Comment on above: Performed By: #### L 3890.6300, L3890.6005, L509.8000, BTS, L3890.6100, L100.0100, L509.4005, L501.9985 #### [facility] [address] [place], [address] WBC (Bld) [#/Vol] 9.6 10*3/uL Normal 4.4-11.0 [facility] Comment on above: Performed By: #### L 3890.6300, L3890.6005, L509.8000, BTS, L3890.6100, L100.0100, L509.4005, L501.9985 #### [facility] [address] [place], [address] Eosinophil percentageOrdered By: Elle Poe on 08-22-2024 Eosinophils/100 WBC (Bld) 2.2 % 0-5 [facility] Erythrocyte distribution wid th ratioOrdered By: Elle Poe on 08-22-2024 Erythrocyte distribution width (RBC) [Ratio] 12.2 % 11.6-14.6 [facility] Erythrocyte distribution wid th standard deviationOrdered By: Elle Poe on 08-22-2024 Erythrocyte distribution width (RBC) [Entitic vol] 39.5 fL 35.1-43.9 [facility] HIV 1+2 Ab+HIV1 p24 Ag IA Ql Ordered By: Elle Poe on 08-22-2024 HIV (1&2) Antibody Non-Reactive Nonreactive [facility] Hematocrit Auto (Bld) [Volum e fraction]Ordered By: Elle Poe on 08-22-2024 Hematocrit (Bld) [Volume fraction] 37.7 % 37-47 [facility] Hemoglobin A1con 08-22-2024 HbA1c (Bld) [Mass fraction] 5.0 % Normal 3.8-5.6 [facility] Comment on above: Result Comment: Norm al < 5.7 % Prediabetic 5.7 - 6.4 % Diabetic >or= 6.5 % Please note range changes. Performed By: #### L 3890.6300, L3890.6005, L509.8000, BTS, L3890.6100, L100.0100, L509.4005, L501.9985 #### [facility] [address] [place], [address] Hemoglobin A1c percentageOrd ered By: Elle Poe on 08-22-2024 HbA1c (Bld) [Mass fraction] 5.0 % 3.8-5.6 [facility] Comment on above: Normal < 5.7 % Predi abetic 5.7 - 6.4 % Diabetic >or= 6.5 % Please note range changes. Hemoglobin measurementOrdere d By: Elle Poe on 08-22-2024 Hemoglobin (Bld) [Mass/Vol] 12.7 g/dL 12.0-15.0 [facility] Hepatitis B surface antigen detectionOrdered By: Elle Poe on 08-22-2024 Hepatitis B Surface Antigen Non-Reactive Nonreactive [facility] Hepatitis C virus antibody a ssayOrdered By: Elle Poe on 08-22-2024 Hepatitis C Antibody Non-Reactive Nonreactive [facility] Comment on above: Non Reactive: < 0.8 Equivocal: >/= 0.8 to < 1.0 Reactive: >/= 1.0The CDC requires that a reactive/equivocal HCV antibody result be sent out for confirmation. HCV Quant by PCR testing. Immature granulocytes/100 WB C Auto (Bld)Ordered By: Elle Poe on 08-22-2024 Immature granulocytes/100 WBC (Bld) 0.400 % 0.0-0.9 [facility] Comment on above: IG% - Immature Granu locytes (promyelocytes, myelocytes and metamyelocytes) > 1% indicates that a LEFT SHIFT is Present. Lymphocytes Auto (Unsp spec) [#/Vol]Ordered By: Elle Poe on 08-22-2024 Lymphocytes (Bld) [#/Vol] 2.27 10*3/uL 0.83-4.51 [facility] Lymphocytes/100 WBC Auto (Un sp spec)Ordered By: Elle Poe on 08-22-2024 Lymphocytes/100 WBC (Bld) 23.7 % 19-41 [facility] MCV (mean corpuscular volume ) determinationOrdered By: Elle Poe on 08-22-2024 MCV (RBC) [Entitic vol] 87.5 fL 81-99 [facility] Mean corpuscular hemoglobin (MCH) determinationOrdered By: Elle Poe on 08-22-2024 MCH (RBC) [Entitic mass] 29.5 pg 27.0-32.0 [facility] Mean corpuscular hemoglobin concentration (MCHC) determinationOrdered By: Elle Poe on 08-22-2024 MCHC (RBC) [Mass/Vol] 33.7 g/dL 32-36 [facility] Mean platelet volume determi nationOrdered By: Elle Poe on 08-22-2024 Platelet mean volume (Bld) [Entitic vol] 11.8 fL 6.2-12.0 [facility] Monocyte percentageOrdered B y: Elle Poe on 08-22-2024 Monocytes/100 WBC (Bld) 8.4 % 0-10 [facility] Neisseria gonorrhoeae nuclei c acid detection by amplified probe techniqueOrdered By: Elle Poe on 08-22-2024 N. gonorrhoeae DNA SHAYLEE+probe Ql (Unsp spec) Negative Negative [facility] Comment on above: Performed at: =[address] [id number] Director: Ilsa Crystal MD, Phone: [phone] Neutrophil percentageOrdered By: Elle Poe on 08-22-2024 Neutrophils/100 WBC (Bld) 64.9 % 47-70 [facility] Nucleated red blood cell per centageOrdered By: Elle Poe on 08-22-2024 Nucleated RBC/100 WBC (Bld) [Ratio] 0 % 0-5 [facility] Promoter Office Visit Reporton 08-22-2024 Community Health Promoter Office Visit Report [facility]'[address], [address] [place] [address] OFFICE VISIT Date of Service: 08/22/24 MR#: [id number] Acct: [id number] Name: MADDIE TORRE Rep #: [id number] : 2000 Provider: AMAIRANI Sainz ams Age/Sex: 24/F [place] [facility] [place]: Signed Intake Vital Signs 02/13/24 11:38 08/13/24 14:05 08/22/24 14:24 Height 5 ft 2 in 5 ft 2 in 5 ft 2 in Weight: 120 lb BMI 21.9 BP 120/86 H Intake Visit Reasons: New OB, LMP 06/23, ITZEL 7/21/25 Desktop Administrator Required: No Is patient in pain?: No Allergies No Known Allergies Allergy (Verified 08/22/24 14:22) Medications ???Medication ???Instructions ???Recorded ???Confirmed ???Type ergocalciferol (vitamin D2) 1,250 1,250 mcg PO QWEEK 01/27/24 08/22/24 History mcg (50,000 unit) capsule (Drisdol) ondansetron 4 mg disintegrating 4 mg PO Q6H PRN nausea and 08/09/24 08/22/24 Rx tablet vomiting #30 tabs docosahexaenoic acid 200 mg mg PO 08/15/24 08/22/24 History capsule ( DHA) mecobalamin (vitamin B12) 10,000 mcg IM MONTHLY 08/15/24 08/22/24 History mcg solution for injection Last Menstrual Period: 06/23/24 Zika: Zika virus screening: Negative : Yes Have you fallen in the past year?: No PFSH PFSH Medical History Spontaneous Family History Grandmother Cancer Lung-Maternal Aunt Cancer Pancreatic- Maternal Social History adopted: No household members: spouse current occupational status: employed 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 current occupational exposures/hazards: No pets and animals: Yes ( taking care of litterbox) pets and animals: cat(s) and fish history of recent travel: No sexually active: Yes Smoking Status: Never smoker alcohol intake: current alcohol intake frequency: holidays/special occasions only details: None while substance use type: former substance user Date of last use: Age 16 experimented and marijuana diet: other well-balanced diet: daily or most days caffeine: No eating out: 1-3 times/week during the past year weight has: remained stable what type of physical activity do you participate in: none seatbelt use: always do you feel safe at home: Yes 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 Date Name GA/Weeks Outcome Route Bth Weight Infant Gen Labor Lgth Anesthesia Del [facility] Provider FOB 01/09/24 5 spontaneous HPI New OB, LMP 06/23, ITZEL 03/30/25 Details: MADDIE TORRE is a 24 year old who presents for New OB visit. OB Visit ITZEL Calculator Estimated Delivery Date Method Current WG Current Estimate 03/30/25 LMP (Certain) 8w 4d Estimated Due Date: 03/30/25 Expected Delivery Route/Plan Labor Preferences- CB/BF classes: [] labor support person: [] labor intervention preferences: [] pain management options preferred: [] cut cord/dad catch: [] : [] PP control planned: [] discussed possible routes of delivery and associated risks: [] special requests: [] Specific Issue/Plans Covid status: [] Flu vaccine: [] Tdap vaccine: [] Rhogam: [] LARC form signed: [] Problem list reviewed and updated with the most current plan of care details and appropriate orders placed. Relevant counseling for the gestational age provided. Continue routine care and follow up unless otherwise noted in visit notes/problem list details Initial Weight: 120 lb Date -???-???-???-???-???-?? ?-???-???-???-???-???-? ??- EGA Weight BP Urine Prot -???-???-???-???-???-?? ?-???-???-???-???-???-? ??- Glucose FHR FuHt Pres Dilation -???-???-???-???-???-?? ?-???-???-???-???-???-? ??- Effaced St Visit Note 08/22/24 -???-???-???-???-???-?? ?-???-???-???-???-???-? ??- 8w 4d 120 lb (+0 oz) 120/86 -???-???-???-???-???-?? ?-???-???-???-???-???-? ??- 153 -???-???-???-???-???-?? ?-???-???-???-???-???-? ??- KW- CRL cons with dates. declines NIPT. has US appt after today. declined pap today. Menstrual History Last Menstrual Period: 06/23/24 Reported LMP: definite Normal amount/duration: Yes Frequency in days: 30-33 On hormonal BC at conception: No hCG+: 07/24/24 Antepartum Record Genetic Screening: Congenital Heart Defect: Other, Neural Tube Defect: Other, Hemoglobinopathy Or Carrier: Other, Cystic Fibrosis: Other, Chromosome Abnormality: Other, T (more content not included)... Normal [facility] Platelet countOrdered By: Delmar Poe on 08-22-2024 Platelets (Bld) [#/Vol] 264 10*3/uL 150-450 [facility] RBC Auto (Bld) [#/Vol]Ordere d By: Elle Poe on 08-22-2024 RBC (Bld) [#/Vol] 4.31 10*6/uL 4.2-5.4 [facility] Rubella immune status IgGOrd ered By: Elle Poe on 08-22-2024 Rubella IgG Antibody Reactive Nonreactive [facility] Comment on above: Antibody Results Int erpretation of Immune Status Non Reactive Presumed Non-Immune Equivocal Equivocal Reactive Presumed Immune Transvaginal w/Preg USon Transvaginal w/Preg [facility] [address] [place] [address] Transvaginal w/Preg US MR#: [id number] Acct: [id number] Name: MADDIE TORRE Rep #: [id number] : 2000 F 24 From: Sarthak Rosas MD PCP: SERGE QuinterosC Status: REG CLI Study: Transvaginal w/Preg US Date of Exam: 08/22/24 Exam# [id number] Ordering Dr: Radha Peters [id number] STUDY: FIRST TRIMESTER OBSTETRICAL ULTRASOUND REASON FOR EXAM: Female, 24 years old viability LMP: 06/23/2024 TECHNIQUE: Transvaginal TECHNICAL QUALITY: Adequate. PRIOR ULTRASOUND: None. FINDINGS: There is visualization of a single gestational sac in a normal intrauterine position. The mean sac diameter (MSD) measures 30 mm, indicating an estimated gestational age (EGA) of 8 weeks, 1 days. The gestational sac shape is within normal limits. 1.8 cm echogenic area within or adjacent to the gestational sac extending from the endometrium which may represent a chorionic bump. There is a visualized yolk sac. The yolk sac measures 4 mm. The placenta is non-visualized. There is visualization of a live embryo. The crown-rump length (CRL) measures 13 mm, indicating an estimated gestational age (EGA) of 7 weeks, 4 days. There is demonstrated cardiac activity with a heart rate of 164 bpm. The estimated gestation age (EGA) by LMP is 8 weeks, 4 days. The estimated date of delivery (ITZEL) by LMP is 03/30/2025. The estimated gestation age (EGA) by US is 7 weeks, 6 days. The estimated date of delivery (ITZEL) by US is 04/04/2025. The uterus measures 10.3 x 8.3 x 6.5 cm. There is no demonstrated uterine fibroid. The cervix is closed. The right ovary measures 2.9 x 1.8 x 1.8 cm. There is no right ovarian cyst. There is no visualized right adnexal mass or complex lesion. The left ovary measures 2.4 x 1.2 x 1.4 cm. There is no left ovarian cyst. There is no visualized left adnexal mass or complex lesion. There is no fluid in the cul de sac. US/Transvaginal w/Preg US IMPRESSION: Living intrauterine of 7 weeks 6 days as described above. Electronically Signed: Sarthak Rosas MD at 8:53 EST , CC: AMEE Flower; Dr. Radha Peters MD Retail Cashier: Signed Normal [facility] Treponema sp Ab Ql (S)Ordere d By: Elle Poe on 08-22-2024 Syphilis Total Antibody Non-Reactive [facility] Type AND Screenon 08-22-2024 Ab SCREEN GEL Negative Normal [facility] Comment on above: Order Comment: PN Performed By: #### L 3890.6300, L3890.6005, L509.8000, BTS, L3890.6100, L100.0100, L509.4005, L501.9985 #### [facility] [address] [place], [place], [id number] ABO and Rh group Nom (Bld) Blood group O Rh(D) positive Normal [facility] Comment on above: Order Comment: PN Performed By: #### L 3890.6300, L3890.6005, L509.8000, BTS, L3890.6100, L100.0100, L509.4005, L501.9985 #### [facility] [address] [place], [address] Urine cultureOrdered By: Chas Poe on 08-22-2024 Bacteria identified Cx Nom (U) Culture exhibits no growth. [facility] White blood cell (WBC) count Ordered By: Elle Poe on 08-22-2024 WBC (Bld) [#/Vol] 9.6 10*3/uL 4.4-11.0 [facility] Community Health Promoter Office Visit Reporton 08-13-2024 Community Health Promoter Office Visit Report [facility]'[address], [address] [place] [address] OFFICE VISIT Date of Service: 08/13/24 MR#: [id number] Acct: [id number] Name: MADDIE TORRE Rep #: [id number] : 2000 Provider: Dr. Radha stanford MD Age/Sex: 24/F [place] [facility] [place]: Signed Intake Vital Signs 08/11/24 11:46 08/13/24 14:05 Height 5 ft 2 in 5 ft 2 in Weight: 166 lb 6 oz 166 lb 8 oz BMI 30.4 30.4 BP 128/84 H 122/81 H Intake Visit Reasons: RESCAN per Desktop Administrator Required: No Is patient in pain?: No Feel stressed/tense/nervous/ anxious/difficulty sleeping: not at all Allergies No Known Allergies Allergy (Verified 08/13/24 14:07) Medications ???Medication ???Instructions ???Recorded ???Confirmed ???Type ergocalciferol (vitamin D2) 1,250 1,250 mcg PO QWEEK 01/27/24 08/13/24 History mcg (50,000 unit) capsule (Drisdol) ondansetron 4 mg disintegrating 4 mg PO Q6H PRN nausea and 08/09/24 08/13/24 Rx tablet vomiting #30 tabs Post menopausal: No : No PFSH Medical History Spontaneous Family History Grandmother Cancer Lung-Maternal Aunt Cancer Pancreatic- Maternal Social History household members: spouse current occupational status: employed current occupation: [employer] Smoking Status: Never smoker alcohol intake: never substance use type: does not use seatbelt use: always do you feel safe at home: Yes 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 no bleeding or cramping, feeling nauseated. CRL 3.8 mm of new pole next to yolk sac seen with FHT seen and measuring 122 on doppler. separate previously seen now 14 mm circular structure in the GS separate from pole present, unclear signficance. History 2 Elective abortions Hx Para 0 Spontaneous abortions Hx # Term Pregnancies Ectopic pregnancies Hx # Pregnancies Multiple births # of living children ROS Const Constitutional: Denies fatigue, fever(s), headache(s), increased appetite, poor appetite, weight gain or weight loss Cardio Card: Denies chest pain Resp Resp: Denies cough or dyspnea GI GI: Reports as per HPI; Denies abdominal pain, constipation, nausea or vomiting : Reports as per HPI; Denies difficulty voiding, dysuria, nipple discharge, urinary frequency, urinary incontinence, urinary hesitancy, urinary urgency, vaginal discharge, vaginal dryness, vaginal odor or vaginal pruritus Skin Skin/Breast: Denies change in hair, breast mass, breast pain, breast skin changes or nipple discharge Exam Const General: cooperative, healthy appearing, comfortable, no acute distress and well developed Nutritional Appearance: average body habitus Orientation: alert HENMT Head: normal to inspection and normocephalic Neck Neck: normal visual inspection and trachea midline Thyroid: thyroid normal Resp Effort Inspection: normal respiratory effort GI Inspection: normal to inspection and non-distended Palpation: soft and no hepatosplenomegaly General: bladder normal to palpation External Female Exam: normal external appearance and normal appearance of the urethra Urethra: normal appearance of the urethra, normal palpation and no discharge Speculum Exam - Vagina: normal appearance of the vagina and normal vaginal discharge Speculum Exam - Cervix: normal appearance of the cervix and nontender Bimanual Exam- Vagina Uterus: normal bimanual exam, uterine size normal, bladder normal to palpation, uterine shape normal, No tender, uterine mobility normal, consistency normal, normal palpation and non-tender Bimanual Exam- Adnexa, other: normal adnexae, adnexae mobile, no masses and normal Pelvic Support: normal Skin General: no rashes or lesions noted Coding Level of Care Code Off vis,est,level 3 Diagnoses Threatened O20.0 Assessment and Plan Assessment and Plan (1) Threatened : Status: Acute Comment: viable 3.8mm CRL with FHT present, separat 14 mm structure in the GS seen separate from pole and yolk sac, unclear significance, formal scan ordered for new OB visit next week Plan Problem list updated and treatment plans were reviewed with the patient and relevant educational handouts given. See problem list details for specific plan information. 08/13/24 1436 Date Radha Peters MD Cosigner Signature: Date (if applicabl (more content not included)... Normal [facility] HCG ( test) QlOrder ed By: Radha Peters on 08-11-2024 Human Chorionic Gonadotropin, Quant 78253 mIU/mL High <4 [facility] Comment on above: hCG levels with Gest ational AgeGestational Age hCG mIU/mL (IU/L)0.2 - 1 week 5 - 501-2 weeks 50 - 5002-3 weeks 100 - 34972-6 weeks 500 - 655463-2 weeks 1000 - 564178-3 weeks 83895 - 100,0006-8 weeks 29707 - 200,0002-3 months 47653 - 100,000 Community Health Promoter Office Visit Reporton 08-11-2024 Community Health Promoter Office Visit Report [facility] [address], [address] [place] [address] OFFICE VISIT Date of Service: 08/11/24 MR#: [id number] Acct: [id number] Name: MADDIE TORRE Rep #: [id number] : 2000 Provider: Dr. Radha stanford MD Age/Sex: 24/F [place] [facility] [place]: Signed Intake Vital Signs 02/13/24 11:38 08/11/24 11:46 Height 5 ft 2 in 5 ft 2 in Weight: 166 lb 8 oz 166 lb 6 oz BMI 30.4 30.4 BP 114/72 128/84 H Intake Visit Reasons: Spotting, new OB is next week Desktop Administrator Required: No Is patient in pain?: No Allergies No Known Allergies Allergy (Verified 08/11/24 11:51) Post menopausal: No Patient : Yes : No PFSH Medical History Spontaneous Family History Grandmother Cancer Lung-Maternal Aunt Cancer Pancreatic- Maternal Social History household members: spouse current occupational status: employed current occupation: [employer] Smoking Status: Never smoker alcohol intake: never substance use type: does not use seatbelt use: always do you feel safe at home: Yes 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 her first positive te st from july 24, hcg on the was 16 and 257 on the . she has had vomiting over the weekend. she denies any fevers, she is anxious about possible loss, history of miscarriage at 4-5 weeks before, no d and c needed. US shows 16mm GA with 9-10 mm CRl with visble possible heart motion but not visible on color doppler History 2 Elective abortions Hx Para 0 Spontaneous abortions Hx # Term Pregnancies Ectopic pregnancies Hx # Pregnancies Multiple births # of living children ROS Const Constitutional: Reports as per HPI; Denies fever(s) ENT ENT: Reports system reviewed and no additional complaints, except as documented Cardio Card: Reports system reviewed and no additional complaints, except as documented Resp Resp: Reports system reviewed and no additional complaints, except as documented GI GI: Reports as per HPI : Reports as per HPI Musc Musc: Reports system reviewed and no additional complaints, except as documented Skin Skin/Breast: Reports system reviewed and no additional complaints, except as documented Neuro Neuro: Reports system reviewed and no additional complaints, except as documented Endo Endo: Reports system reviewed and no additional complaints, except as documented Exam Const General: healthy appearing, comfortable and no acute distress HENMT Head: normal to inspection and normocephalic Neck Neck: no lymphadenopathy noted Thyroid: thyroid normal Chest Chest palpation inspection: normal inspection of the chest Resp Effort Inspection: normal respiratory effort Cardio Rate: regular rate Rhythm: regular rhythm GI Inspection: normal to inspection Palpation: soft and nontender External Female Exam: normal external appearance Speculum Exam - Vagina: normal appearance of the vagina and vaginal bleeding Bimanual Exam- Vagina Uterus: uterine shape normal and non-tender OB/External Speculum: vaginal bleeding Speculum Exam: vaginal bleeding Skin General: no rashes or lesions noted Neuro General: no focal motor deficits Extrem General: normal to inspection and no pedal edema Psych Appearance: grossly normal Coding Level of Care Code Off vis,new,level 3 Diagnoses Threatened O20.0 Assessment and Plan Assessment and Plan (1) Threatened : Status: Acute Comment: reviewed bleeding precautions, recommend exp management with repeat US sunday, repeat hcg Orders: Orders hCG Titer Quant., Serum Today O20.0 - Threatened Type Screen Today O20.0 - Threatened Plan Problem list updated and treatment plans were reviewed with the patient and relevant educational handouts given. See problem list details for specific plan information. 08/11/24 1721 Date Radha Peters MD Cosigner Signature: Date (if applicable) CC: Normal [facility] Type AND Screenon 08-11-2024 ABO and Rh group Nom (Bld) Blood group O Rh(D) positive Normal [facility] Comment on above: Order Comment: PN Performed By: #### Ti CHAPPELL, L700.8000 ####[facility] [id number] [place], [place], [id number] hCG Titer Quant., Serumon HCG QUANT. 90500 mIU/mL High 1-3 [facility] Comment on above: Result Comment: hCG levels with Gestational Age Gestational Age hCG mIU/mL (IU/L) 0.2 - 1 week 5 - 50 1-2 weeks 50 - 500 2-3 weeks 100 - 5000 3-4 weeks 500 - 95404 4-5 weeks 1000 - 94152 5-6 weeks 62945 - 100,000 6-8 weeks 36053 - 200,000 2-3 months 79178 - 100,000 Performed By: #### Ti CHAPPELL, L700.8000 ####[facility] [id number] [place], [address] CBC W Auto Differential pane l (Bld)on 07-29-2024 Basophils (Bld) [#/Vol] 0.04 x10*3/uL Normal 0.00-0.10 [facility] Comment on above: Performed By: #### 2 276-4 #### MIGEUL GUALLPA ([id number]) [facility] ([facility]) [address] [place] [address] 70558 Basophils/100 WBC (Bld) 0.3 % Normal 0.0-2.0 [facility] Comment on above: Performed By: #### 2 276-4 #### MIGUEL GUALLPA ([id number]) [facility] ([facility]) [address] [place] [address] 34516 Eosinophils (Bld) [#/Vol] 0.16 x10*3/uL Normal 0.00-0.70 [facility] Comment on above: Performed By: #### 2 276-4 #### MIGUEL GUALLPA ([id number]) [facility] ([facility]) [address] [place] [address] 07335 Eosinophils/100 WBC (Bld) 1.3 % Normal 0.0-6.0 [facility] Comment on above: Performed By: #### 2 276-4 #### MIGUEL GUALLPA ([id number]) [facility] ([facility]) [address] [place] [address] 88373 Erythrocyte distribution width (RBC) [Ratio] 12.5 % Normal 11.5-14.5 [facility] Comment on above: Performed By: #### 2 276-4 #### MIGUEL GUALLPA ([id number]) [facility] ([facility]) [address] [place] [address] 44939 Hematocrit (Bld) [Volume fraction] 39.7 % Normal 36.0-46.0 [facility] Comment on above: Performed By: #### 2 276-4 #### MIGUEL GUALLPA ([id number]) [facility] ([facility]) [address] [place] [address] 40340 Hemoglobin (Bld) [Mass/Vol] 12.8 g/dL Normal 12.0-16.0 [facility] Comment on above: Performed By: #### 2 276-4 #### MIGUEL GUALLPA ([id number]) [facility] ([facility]) [address] [place] [address] 81015 Immature granulocytes (Bld) [#/Vol] 0.04 x10*3/uL Normal 0.00-0.70 [facility] Comment on above: Performed By: #### 2 276-4 #### MIGUEL GUALLPA ([id number]) [facility] ([facility]) [address] [place] [address] 45577 Immature granulocytes/100 WBC (Bld) 0.3 % Normal 0.0-0.9 [facility] Comment on above: Result Comment: Shelley ture Granulocyte Count (IG) includes promyelocytes, myelocytes and metamyelocytes but does not include bands. Percent differential counts (%) should be interpreted in the context of the absolute cell counts (cells/UL). Performed By: #### 2 276-4 #### MIGUEL GUALLPA ([id number]) [facility] ([facility]) [address] [place] [address] 99813 Lymphocytes (Bld) [#/Vol] 2.65 x10*3/uL Normal 1.20-4.80 [facility] Comment on above: Performed By: #### 2 276-4 #### MIGUEL GUALLPA ([id number]) [facility] ([facility]) [address] [place] [address] 92300 Lymphocytes/100 WBC (Bld) 21.9 % Normal 13.0-44.0 [facility] Comment on above: Performed By: #### 2 276-4 #### MIGUEL GUALLPA ([id number]) [facility] ([facility]) [address] [place] [address] 70604 MCH (RBC) [Entitic mass] 29.4 pg Normal 26.0-34.0 [facility] Comment on above: Performed By: #### 2 276-4 #### MIGUEL GUALLPA ([id number]) [facility] ([facility]) [address] [place] [address] 31318 MCHC (RBC) [Mass/Vol] 32.2 g/dL Normal 32.0-36.0 [facility] Comment on above: Performed By: #### 2 276-4 #### MIGUEL GUALLPA ([id number]) [facility] ([facility]) [address] [place] [address] 45610 MCV (RBC) [Entitic vol] 91 fL Normal 80-100 [facility] Comment on above: Performed By: #### 2 276-4 #### MIGUEL GUALLPA ([id number]) [facility] ([facility]) [address] [place] [address] 51438 Monocytes (Bld) [#/Vol] 0.72 x10*3/uL Normal 0.10-1.00 [facility] Comment on above: Performed By: #### 2 276-4 #### MIGUEL GUALLPA ([id number]) [facility] ([facility]) [address] [place] [address] 87344 Monocytes/100 WBC (Bld) 6.0 % Normal 2.0-10.0 [facility] Comment on above: Performed By: #### 2 276-4 #### MIGUEL GUALLPA ([id number]) [facility] ([facility]) [address] [place] [address] 55694 Neutrophils (Bld) [#/Vol] 8.49 x10*3/uL High 1.20-7.70 [facility] Comment on above: Result Comment: Perc ent differential counts (%) should be interpreted in the context of the absolute cell counts (cells/uL). Performed By: #### 2 276-4 #### MIGUEL GUALLPA ([id number]) [facility] ([facility]) [address] [place] [address] 83608 Neutrophils/100 WBC (Bld) 70.2 % Normal 40.0-80.0 [facility] Comment on above: Performed By: #### 2 276-4 #### MIGUEL GUALLPA ([id number]) [facility] ([facility]) [address] [place] [address] 75447 Nucleated RBC/100 WBC (Bld) [Ratio] 0.0 /100 WBCs Normal 0.0-0.0 [facility] Comment on above: Performed By: #### 2 276-4 #### MIGUEL GUALLPA ([id number]) [facility] ([facility]) [address] [place] [address] 05793 Platelets (Bld) [#/Vol] 308 x10*3/uL Normal 150-450 [facility] Comment on above: Performed By: #### 2 276-4 #### MIGUEL GUALLPA ([id number]) [facility] ([facility]) [address] [place] [address] 60542 RBC (Bld) [#/Vol] 4.36 x10*6/uL Normal 4.00-5.20 [facility] Comment on above: Performed By: #### 2 276-4 #### MIGUEL GUALLPA ([id number]) [facility] ([facility]) [address] [place] [address] 38558 WBC (Bld) [#/Vol] 12.1 x10*3/uL High 4.4-11.3 [facility] Comment on above: Performed By: #### 2 276-4 #### MIGUEL GUALLPA ([id number]) [facility] ([facility]) [address] [place] [address] 11976 Choriogonadotropin.beta subu niton 07-29-2024 HCG.beta subunit Qn 257 m[IU]/mL High <5 [facility] Comment on above: Order Comment: Total HCG measurement is performed using the Daphne Rekha Access Immunoassay which detects intact HCG and free beta HCG subunit. This test is not indicated for use as a tumor marker. HCG testing is performed using a different test methodology at [facility] than other [facility]. Direct result comparison should only be made within the same method. Result Comment: Low- level positive HCG results can be seen in early , in giuliana- or post-menopausal females due to normal pituitary HCG production, or with analytic interference. Repeat testing in 48-72 hours can aid in assessing for as results should double in this time period. FSH measurement is recommended in giuliana- or post-menopausal females as concurrent elevation of FSH can support pituitary production as the source of the HCG elevation. Performed By: #### 2 276-4 #### MIGUEL GUALLPA ([id number]) [facility] ([facility]) [address] [place] [address] 08850 CBC W Auto Differential pane l (Bld)on 07-25-2024 Basophils (Bld) [#/Vol] 0.03 x10*3/uL Normal 0.00-0.10 [facility] Comment on above: Performed By: #### 5 7021-8 #### MIGUEL GUALLPA ([id number]) [facility] ([facility]) [address] [place] [address] 31929 Basophils/100 WBC (Bld) 0.2 % Normal 0.0-2.0 [facility] Comment on above: Performed By: #### 5 7021-8 #### MIGUEL GUALLPA ([id number]) [facility] ([facility]) [address] [place] [address] 08542 Eosinophils (Bld) [#/Vol] 0.16 x10*3/uL Normal 0.00-0.70 [facility] Comment on above: Performed By: #### 5 7021-8 #### MIGUEL GUALLPA ([id number]) [facility] ([facility]) [address] [place] [address] 47867 Eosinophils/100 WBC (Bld) 1.2 % Normal 0.0-6.0 [facility] Comment on above: Performed By: #### 5 7021-8 #### MIGUEL GUALLPA ([id number]) [facility] ([facility]) [address] [place] [address] 61356 Erythrocyte distribution width (RBC) [Ratio] 12.3 % Normal 11.5-14.5 [facility] Comment on above: Performed By: #### 5 7021-8 #### MIGUEL GUALLPA ([id number]) [facility] ([facility]) [address] [place], [place] [id number] Hematocrit (Bld) [Volume fraction] 37.7 % Normal 36.0-46.0 [facility] Comment on above: Performed By: #### 5 7021-8 #### MIGUEL GUALLPA ([id number]) [facility] ([facility]) [address] [place] [address] 31877 Hemoglobin (Bld) [Mass/Vol] 12.6 g/dL Normal 12.0-16.0 [facility] Comment on above: Performed By: #### 5 7021-8 #### MIGUEL GUALLPA ([id number]) [facility] ([facility]) [address] [place] [address] 74402 Immature granulocytes (Bld) [#/Vol] 0.04 x10*3/uL Normal 0.00-0.70 [facility] Comment on above: Performed By: #### 5 7021-8 #### MIGUEL GUALLPA ([id number]) [facility] ([facility]) [address] [place] [address] 41252 Immature granulocytes/100 WBC (Bld) 0.3 % Normal 0.0-0.9 [facility] Comment on above: Result Comment: Shelley ture Granulocyte Count (IG) includes promyelocytes, myelocytes and metamyelocytes but does not include bands. Percent differential counts (%) should be interpreted in the context of the absolute cell counts (cells/UL). Performed By: #### 5 7021-8 #### MIGUEL GUALLPA ([id number]) [facility] ([facility]) [address] [place] [address] 26329 Lymphocytes (Bld) [#/Vol] 2.68 x10*3/uL Normal 1.20-4.80 [facility] Comment on above: Performed By: #### 5 7021-8 #### MIGUEL GUALLPA ([id number]) [facility] ([facility]) [address] [place] [address] 63964 Lymphocytes/100 WBC (Bld) 20.0 % Normal 13.0-44.0 [facility] Comment on above: Performed By: #### 5 7021-8 #### MIGUEL GUALLPA ([id number]) [facility] ([facility]) [address] [place] [address] 44015 MCH (RBC) [Entitic mass] 29.8 pg Normal 26.0-34.0 [facility] Comment on above: Performed By: #### 5 7021-8 #### MIGUEL GUALLPA ([id number]) [facility] ([facility]) [address] [place] [address] 28471 MCHC (RBC) [Mass/Vol] 33.4 g/dL Normal 32.0-36.0 [facility] Comment on above: Performed By: #### 5 7021-8 #### MIGUEL GUALLPA ([id number]) [facility] ([facility]) [address] [place] [address] 06688 MCV (RBC) [Entitic vol] 89 fL Normal 80-100 [facility] Comment on above: Performed By: #### 5 7021-8 #### MIGUEL GUALLPA ([id number]) [facility] ([facility]) [address] [place] [address] 56138 Monocytes (Bld) [#/Vol] 0.64 x10*3/uL Normal 0.10-1.00 [facility] Comment on above: Performed By: #### 5 7021-8 #### MIGUEL GUALLPA ([id number]) [facility] ([facility]) [address] [place] [address] 63360 Monocytes/100 WBC (Bld) 4.8 % Normal 2.0-10.0 [facility] Comment on above: Performed By: #### 5 7021-8 #### MIGUEL GUALLPA ([id number]) [facility] ([facility]) [address] [place] [address] 94810 Neutrophils (Bld) [#/Vol] 9.84 x10*3/uL High 1.20-7.70 [facility] Comment on above: Result Comment: Perc ent differential counts (%) should be interpreted in the context of the absolute cell counts (cells/uL). Performed By: #### 5 7021-8 #### MIGUEL GUALLPA ([id number]) [facility] ([facility]) [address] [place] [address] 74945 Neutrophils/100 WBC (Bld) 73.5 % Normal 40.0-80.0 [facility] Comment on above: Performed By: #### 5 7021-8 #### MIGUEL GUALLPA ([id number]) [facility] ([facility]) [address] [place] [address] 53867 Nucleated RBC/100 WBC (Bld) [Ratio] 0.0 /100 WBCs Normal 0.0-0.0 [facility] Comment on above: Performed By: #### 5 7021-8 #### MIGUEL GUALLPA ([id number]) [facility] ([facility]) [address] [place] [address] 87154 Platelets (Bld) [#/Vol] 291 x10*3/uL Normal 150-450 [facility] Comment on above: Performed By: #### 5 7021-8 #### MIGUEL GUALLPA ([id number]) [facility] ([facility]) [address] [place] [address] 40129 RBC (Bld) [#/Vol] 4.23 x10*6/uL Normal 4.00-5.20 [facility] Comment on above: Performed By: #### 5 7021-8 #### MIGUEL GUALLPA ([id number]) [facility] ([facility]) [address] [place] [address] 95824 WBC (Bld) [#/Vol] 13.4 x10*3/uL High 4.4-11.3 [facility] Comment on above: Performed By: #### 5 7021-8 #### MIGUEL GUALLPA ([id number]) [facility] ([facility]) [address] [place] [address] 93456 Calcidiolon 07-25-2024 25-hydroxyvitamin D3 [Mass/Vol] 18 ng/mL Low 30-100 [facility] Comment on above: Order Comment: Defic iency: < 20 ng/mlInsufficiency: 20-29 ng/mlSufficiency: 30-100 ng/mlThis assay accurately quantifies the sum of Vitamin D3, 25-Hydroxy and Vitamin D2,25-Hydroxy. Performed By: #### 2 276-4 #### MIGUEL GUALLPA ([id number]) [facility] ([facility]) [address] [place] [address] 90788 Choriogonadotropin.beta subu niton 07-25-2024 HCG.beta subunit Qn 16 m[IU]/mL High <5 [facility] Comment on above: Order Comment: Total HCG measurement is performed using the Daphne Rekha Access Immunoassay which detects intact HCG and free beta HCG subunit. This test is not indicated for use as a tumor marker. HCG testing is performed using a different test methodology at [facility] than other [facility]. Direct result comparison should only be made within the same method. Result Comment: Low- level positive HCG results can be seen in early , in giuliana- or post-menopausal females due to normal pituitary HCG production, or with analytic interference. Repeat testing in 48-72 hours can aid in assessing for as results should double in this time period. FSH measurement is recommended in giuliana- or post-menopausal females as concurrent elevation of FSH can support pituitary production as the source of the HCG elevation. Performed By: #### 2 1198-7 #### MIGUEL GUALLPA ([id number]) [facility] ([facility]) [address] [place] [address] Cobalaminson 07-25-2024 Cobalamin (Vitamin B12) [Mass/Vol] 166 pg/mL Low 211-911 [facility] Comment on above: Performed By: #### 2 276-4 #### MIGUEL GUALLPA ([id number]) [facility] ([facility]) [address] [place], [place] [id number] Comprehensive metabolic 2000 panelon 07-25-2024 Albumin BCP dye [Mass/Vol] 4.4 g/dL Normal 3.4-5.0 [facility] Comment on above: Performed By: #### 2 4323-8 #### MIGUEL GUALLPA ([id number]) [facility] ([facility]) [address] [place] [address] 61122 ALP [Catalytic activity/Vol] 70 U/L Normal 33-110 [facility] Comment on above: Performed By: #### 2 4323-8 #### MIGUEL GUALLPA ([id number]) [facility] ([facility]) [address] [place] [address] 68440 ALT With P-5'-P [Catalytic activity/Vol] 14 U/L Normal 7-45 [facility] Comment on above: Result Comment: Erlinda ents treated with Sulfasalazine may generate falsely decreased results for ALT. Performed By: #### 2 4323-8 #### MIGUEL GUALLPA ([id number]) [facility] ([facility]) [address] [place] [address] Anion gap [Moles/Vol] 9 mmol/L Low 10-20 [facility] Comment on above: Performed By: #### 2 4323-8 #### MIGUEL GUALLPA ([id number]) [facility] ([facility]) [address] [place] [address] AST With P-5'-P [Catalytic activity/Vol] 15 U/L Normal 9-39 [facility] Comment on above: Performed By: #### 2 4323-8 #### MIGUEL GUALLPA ([id number]) [facility] ([facility]) [address] [place] [address] Bilirubin [Mass/Vol] 0.3 mg/dL Normal 0.0-1.2 [facility] Comment on above: Performed By: #### 2 4323-8 #### MIGUEL GUALLPA ([id number]) [facility] ([facility]) [address] [place] [address] Calcium [Mass/Vol] 9.3 mg/dL Normal 8.6-10.3 [facility] Comment on above: Performed By: #### 2 4323-8 #### MIGUEL GUALLPA ([id number]) [facility] ([facility]) [address] [place] [address] Chloride [Moles/Vol] 103 mmol/L Normal 98-107 [facility] Comment on above: Performed By: #### 2 4323-8 #### MIGUEL GUALLPA ([id number]) [facility] ([facility]) [address] [place] [address] 53292 CO2 [Moles/Vol] 26 mmol/L Normal 21-32 [facility] Comment on above: Performed By: #### 2 4323-8 #### MIGUEL GUALLPA ([id number]) [facility] ([facility]) [address] [place] [address] 70331 Creatinine [Mass/Vol] 0.68 mg/dL Normal 0.50-1.05 [facility] Comment on above: Performed By: #### 2 4323-8 #### MIGUEL GUALLPA ([id number]) [facility] ([facility]) [address] [place] [address] 33971 GFR/1.73 sq M.predicted MDRD (S/P/Bld) [Vol rate/Area] mL/min/{1.73_m2} Normal >60 [facility] Comment on above: Result Comment: Calc ulations of estimated GFR are performed using the 2020 CKD-EPI Study Refit equation without the race variable for the IDMS-Traceable creatinine methods. https://jasn.asnjournals.org/content/early//ASN.47371 28736 Performed By: #### 2 4323-8 #### MIGUEL GUALLPA ([id number]) [facility] ([facility]) [address] [place] [address] 22150 Glucose [Mass/Vol] 99 mg/dL Normal 74-99 [facility] Comment on above: Performed By: #### 2 4323-8 #### MIGUEL GUALLPA ([id number]) [facility] ([facility]) [address] [place] [address] 29281 Potassium [Moles/Vol] 3.9 mmol/L Normal 3.5-5.3 [facility] Comment on above: Performed By: #### 2 4323-8 #### MIGUEL GUALLPA ([id number]) [facility] [facility] [address] [place] [address] 61749 Protein [Mass/Vol] 7.0 g/dL Normal 6.4-8.2 [facility] Comment on above: Performed By: #### 2 4323-8 #### MIGUEL GUALLPA ([id number]) [facility] ([facility]) [address] [place] [address] 05837 Sodium [Moles/Vol] 134 mmol/L Low 136-145 [facility] Comment on above: Performed By: #### 2 4323-8 #### MIGUEL GUALLPA ([id number]) [facility] ([facility]) [address] [place] [address] 81913 Urea nitrogen [Mass/Vol] 13 mg/dL Normal 6-23 [facility] Comment on above: Performed By: #### 2 4323-8 #### MIGUEL GUALLPA ([id number]) [facility] ([facility]) [address] [place] [address] 46490 Ferritinon 07-25-2024 Ferritin [Mass/Vol] 45 ng/mL Normal 8-150 [facility] Comment on above: Performed By: #### 2 276-4 #### MIGUEL GUALLPA ([id number]) [facility] ([facility]) [address] [place] [address] HbA1c (Bld) [Mass fraction]o n 07-25-2024 Average glucose Estimated from glycated hemoglobin (Bld) [Mass/Vol] 100 mg/dL Normal Not Established [facility] Comment on above: Order Comment: Diagn osis of Vxibpwin-LexjjtTae-Ckkunhnb: < or = 5.6%Increased risk for developing diabetes: 5.7-6.4%Diagnostic of diabetes: > or = 6.5% Performed By: #### 2 276-4 #### MIGUEL GUALLPA ([id number]) [facility] ([facility]) [address] [place], [place] [id number] Hemoglobin A1c/Hemoglobin.to shaniqua 07-25-2024 HbA1c (Bld) [Mass fraction] 5.1 % Normal See comment [facility] Comment on above: Order Comment: Diagn osis of Npsdfvoa-XtzoraMho-Tfkaqbyh: < or = 5.6%Increased risk for developing diabetes: 5.7-6.4%Diagnostic of diabetes: > or = 6.5% Performed By: #### 2 276-4 #### MIGUEL GUALLPA ([id number]) [facility] ([facility]) [address] [place] [address] 30479 Iron and Iron binding capaci ty panelon 07-25-2024 Iron [Mass/Vol] 83 ug/dL Normal 35-150 [facility] Comment on above: Performed By: #### 5 0190-8 #### MIGUEL GUALLPA ([id number]) [facility] ([facility]) [address] [place] [address] Iron binding capacity [Mass/Vol] 425 ug/dL Normal 240-445 [facility] Comment on above: Performed By: #### 5 0190-8 #### MIGUEL GUALLPA ([id number]) [facility] ([facility]) [address] [place] [address] Iron binding capacity.unsaturated [Mass/Vol] 342 ug/dL Normal 110-370 [facility] Comment on above: Performed By: #### 5 0190-8 #### MIGUEL GUALLPA ([id number]) [facility] ([facility]) [address] [place] [address] Iron saturation [Mass fraction] 20 % Low 25-45 [facility] Comment on above: Performed By: #### 5 0190-8 #### MIGUEL GUALLPA ([id number]) [facility] ([facility]) [address] [place] [address] Parathyrin.intacton 07-25-20 24 Parathyrin.intact [Mass/Vol] 33.3 pg/mL Normal 18.5-88.0 [facility] Comment on above: Performed By: #### 2 276-4 #### MIGUEL GUALLPA ([id number]) [facility] ([facility]) [address] [place] [address] TSH WITH REFLEX TO FREE T4 I F ABNORMALon 07-25-2024 TSH Qn 2.06 m[IU]/L Normal 0.44-3.98 [facility] Comment on above: Order Comment: TSH t esting is performed using different testing methodology at [facility] than at other [facility]. Direct result comparisons should only be made within the same method. Performed By: #### 2 276-4 #### MIGUEL GUALLPA ([id number]) [facility] ([facility]) [address] [place] [address] CBC W Auto Differential pane l (Bld)on 10-13-2023 Basophils (Bld) [#/Vol] 0.04 x10*3/uL Normal 0.00-0.10 [facility] Comment on above: Performed By: #### 5 7021-8 #### MIGUEL GUALLPA ([id number]) [facility] ([facility]) [address] [place] [address] 95439 Basophils/100 WBC (Bld) 0.5 % Normal 0.0-2.0 [facility] Comment on above: Performed By: #### 7021-8 #### MIGUEL GUALLPA ([id number]) [facility] ([facility]) [address] [place] [address] 50115 Eosinophils (Bld) [#/Vol] 0.29 x10*3/uL Normal 0.00-0.70 [facility] Comment on above: Performed By: #### 7021-8 #### MIGUEL GUALLPA ([id number]) [facility] ([facility]) [address] [place] [address] 92565 Eosinophils/100 WBC (Bld) 3.7 % Normal 0.0-6.0 [facility] Comment on above: Performed By: #### 7021-8 #### MIGUEL GUALLPA ([id number]) [facility] ([facility]) [address] [place] [address] 98283 Erythrocyte distribution width (RBC) [Ratio] 12.5 % Normal 11.5-14.5 [facility] Comment on above: Performed By: #### 7021-8 #### MIGUEL GUALLPA ([id number]) [facility] ([facility]) [address] [place] [address] 61391 Hematocrit (Bld) [Volume fraction] 40.7 % Normal 36.0-46.0 [facility] Comment on above: Performed By: #### 7021-8 #### MIGUEL GUALLPA ([id number]) [facility] ([facility]) [address] [place] [address] 05516 Hemoglobin (Bld) [Mass/Vol] 13.4 g/dL Normal 12.0-16.0 [facility] Comment on above: Performed By: #### 7021-8 #### MIGUEL GUALLPA ([id number]) [facility] ([facility]) [address] [place] [address] 47081 Immature granulocytes (Bld) [#/Vol] 0.02 x10*3/uL Normal 0.00-0.70 [facility] Comment on above: Performed By: #### 5 7021-8 #### MIGUEL GUALLPA ([id number]) [facility] ([facility]) [address] [place] [address] 27031 Immature granulocytes/100 WBC (Bld) 0.3 % Normal 0.0-0.9 [facility] Comment on above: Result Comment: Shelley ture Granulocyte Count (IG) includes promyelocytes, myelocytes and metamyelocytes but does not include bands. Percent differential counts (%) should be interpreted in the context of the absolute cell counts (cells/UL). Performed By: #### 5 7021-8 #### MIGUEL GUALLPA ([id number]) [facility] ([facility]) [address] [place] [address] 13784 Lymphocytes (Bld) [#/Vol] 1.36 x10*3/uL Normal 1.20-4.80 [facility] Comment on above: Performed By: #### 5 7021-8 #### MIGUEL GUALLPA ([id number]) [facility] ([facility]) [address] [place] [address] 76417 Lymphocytes/100 WBC (Bld) 17.5 % Normal 13.0-44.0 [facility] Comment on above: Performed By: #### 5 7021-8 #### MIGUEL GUALLPA ([id number]) [facility] ([facility]) [address] [place] [address] 35442 MCH (RBC) [Entitic mass] 30.0 pg Normal 26.0-34.0 [facility] Comment on above: Performed By: #### 5 7021-8 #### MIGUEL GUALLPA ([id number]) [facility] ([facility]) [address] [place] [address] 35646 MCHC (RBC) [Mass/Vol] 32.9 g/dL Normal 32.0-36.0 [facility] Comment on above: Performed By: #### 5 7021-8 #### MIGUEL GUALLPA ([id number]) [facility] ([facility]) [address] [place] [address] 30337 MCV (RBC) [Entitic vol] 91 fL Normal 80-100 [facility] Comment on above: Performed By: #### 5 7021-8 #### MIGUEL GUALLPA ([id number]) [facility] ([facility]) [address] [place] [address] 97345 Monocytes (Bld) [#/Vol] 0.80 x10*3/uL Normal 0.10-1.00 [facility] Comment on above: Performed By: #### 5 7021-8 #### MIGUEL GUALLPA ([id number]) [facility] ([facility]) [address] [place] [address] 03540 Monocytes/100 WBC (Bld) 10.3 % Normal 2.0-10.0 [facility] Comment on above: Performed By: #### 5 7021-8 #### MIGUEL GUALLPA ([id number]) [facility] ([facility]) [address] [place] [address] 95698 Neutrophils (Bld) [#/Vol] 5.28 x10*3/uL Normal 1.20-7.70 [facility] Comment on above: Result Comment: Perc ent differential counts (%) should be interpreted in the context of the absolute cell counts (cells/uL). Performed By: #### 5 7021-8 #### MIGUEL GUALLPA ([id number]) [facility] ([facility]) [address] [place] [address] 06764 Neutrophils/100 WBC (Bld) 67.7 % Normal 40.0-80.0 [facility] Comment on above: Performed By: #### 5 7021-8 #### MIGUEL GUALLPA ([id number]) [facility] ([facility]) [address] [place] [address] 14954 Nucleated RBC/100 WBC (Bld) [Ratio] 0.0 /100 WBCs Normal 0.0-0.0 [facility] Comment on above: Performed By: #### 5 7021-8 #### MIGUEL GUALLPA ([id number]) [facility] ([facility]) [facility] [place] [address] Platelets (Bld) [#/Vol] 266 x10*3/uL Normal 150-450 [facility] Comment on above: Performed By: #### 5 7021-8 #### MIGUEL GUALLPA ([id number]) [facility] ([facility]) [address] [place] [address] 92059 RBC (Bld) [#/Vol] 4.46 x10*6/uL Normal 4.00-5.20 [facility] Comment on above: Performed By: #### 5 7021-8 #### MIGUEL GUALLPA ([id number]) [facility] ([facility]) [address] [place] [address] 65787 WBC (Bld) [#/Vol] 7.8 x10*3/uL Normal 4.4-11.3 [facility] Comment on above: Performed By: #### 5 7021-8 #### MIGUEL GUALLPA ([id number]) [facility] ([facility]) [address] [place] [address] 28298 Calcidiolon 10-13-2023 25-hydroxyvitamin D3 [Mass/Vol] 28 ng/mL Low 30-100 [facility] Comment on above: Order Comment: Defic iency: < 20 ng/ml Insufficiency: 20-29 ng/ml Sufficiency: 30-100 ng/ml This assay accurately quantifies the sum of Vitamin D3, 25-Hydroxy and Vitamin D2,25-Hydroxy. Performed By: #### 1 989-3 #### MIGUEL GUALLPA ([id number]) [facility] ([facility]) [address] [place] [address] 32574 Ferritinon 10-13-2023 Ferritin [Mass/Vol] 59 ng/mL Normal 8-150 [facility] Comment on above: Performed By: #### 2 276-4 #### MIGUEL GUALLPA ([id number]) [facility] ([facility]) [address] [place] [address] 45633 Iron and Iron binding capaci ty panelon 10-13-2023 Iron [Mass/Vol] 69 ug/dL Normal 35-150 [facility] Comment on above: Performed By: #### 5 0190-8 #### MIGUEL GUALLPA ([id number]) [facility] ([facility]) [address] [place] [address] 96784 Iron binding capacity [Mass/Vol] 399 ug/dL Normal 240-445 [facility] Comment on above: Performed By: #### 5 0190-8 #### MIGUEL GUALLPA ([id number]) [facility] ([facility]) [address] [place] [address] 20020 Iron binding capacity.unsaturated [Mass/Vol] 330 ug/dL Normal 110-370 [facility] Comment on above: Performed By: #### 5 0190-8 #### MIGUEL GUALLPA ([id number]) [facility] ([facility]) [address] [place] [address] 83264 Iron saturation [Mass fraction] 17 % Low 25-45 [facility] Comment on above: Performed By: #### 5 0190-8 #### MIGUEL GUALLPA ([id number]) [facility] ([facility]) [address] [place] [address] 99282 Parathyrin.intacton 10-13-19 24 Parathyrin.intact [Mass/Vol] 48.1 pg/mL Normal 18.5-88.0 [facility] Comment on above: Performed By: #### 2 731-8 #### JONNATHAN Schwartz ([id number]) [facility] ([facility]) [id number] [place] [address] 61792 CBC AND DIFFERENTIALon 11-30 Basophils (Bld) [#/Vol] 0.00 10*3/uL Normal 0.00 - 0.10 [facility] Comment on above: Performed By: #### C BCDF #### [address] [address] Basophils/100 WBC (Bld) 0.7 % Normal 0.0 - 2.0 [facility] Comment on above: Performed By: #### C BCDF #### [address] [address] Eosinophils (Bld) [#/Vol] 0.10 10*3/uL Normal 0.00 - 0.70 [facility] Comment on above: Performed By: #### C BCDF #### [address] [address] Eosinophils/100 WBC (Bld) 1.4 % Normal 0.0 - 6.0 [facility] Comment on above: Performed By: #### C BCDF #### [address] [address] Erythrocyte distribution width (RBC) [Ratio] 12.8 % Normal 11.5 - 14.5 [facility] Comment on above: Performed By: #### C BCDF #### [address] [address] Hematocrit (Bld) [Volume fraction] 38.5 % Normal 36.0 - 46.0 [facility] Comment on above: Performed By: #### C BCDF #### [address] [address] Hemoglobin (Bld) [Mass/Vol] 13.5 g/dL Normal 12.0 - 16.0 [facility] Comment on above: Performed By: #### C BCDF #### [address] [address] Lymphocytes (Bld) [#/Vol] 2.30 10*3/uL Normal 1.20 - 4.80 [facility] Comment on above: Performed By: #### C BCDF #### [address] [address] Lymphocytes/100 WBC (Bld) 40.0 % Normal 13.0 - 44.0 [facility] Comment on above: Performed By: #### C BCDF #### [address] [address] MCHC (RBC) [Mass/Vol] 35.0 g/dL Normal 32.0 - 36.0 [facility] Comment on above: Performed By: #### C BCDF #### [address] [address] MCV (RBC) [Entitic vol] 88 fL Normal 80 - 100 [facility] Comment on above: Performed By: #### C BCDF #### [address] [address] Monocytes (Bld) [#/Vol] 0.30 10*3/uL Normal 0.10 - 1.00 [facility] Comment on above: Performed By: #### C BCDF #### [address] [address] Monocytes/100 WBC (Bld) 5.8 % Normal 2.0 - 10.0 [facility] Comment on above: Performed By: #### C BCDF #### [address] [address] Neutrophils (Bld) [#/Vol] 3.10 10*3/uL Normal 1.20 - 7.70 [facility] Comment on above: Result Comment: Perc ent differential counts (%) should be interpreted in the context of the absolute cell counts (cells/L). Performed By: #### C BCDF #### [address] [address] Neutrophils/100 WBC (Bld) 52.1 % Normal 40.0 - 80.0 [facility] Comment on above: Performed By: #### C BCDF #### [address] [address] NUCLEATED RBC 0.1 /100 WBC Normal [facility] Comment on above: Performed By: #### C BCDF #### [address] [address] Platelets (Bld) [#/Vol] 338 10*3/uL Normal 150 - 450 [facility] Comment on above: Performed By: #### C BCDF #### [address] [address] RBC 4.38 x10E12/L Normal 4.00 - 5.20 [facility] Comment on above: Performed By: #### C BCDF #### [address] [address] WBC (Bld) [#/Vol] 5.9 10*3/uL Normal 4.4 - 11.3 [facility] Comment on above: Performed By: #### C BCDF #### [address] [address] COMPREHENSIVE PANELon 2021 Albumin [Mass/Vol] 5.0 g/dL Normal 3.4 - 5.0 [facility] Comment on above: Performed By: #### C MP #### [address] [address] ALP [Catalytic activity/Vol] 53 U/L Normal 33 - 110 [facility] Comment on above: Performed By: #### C MP #### [address] [address] ALT [Catalytic activity/Vol] 11 U/L Normal 7 - 45 [facility] Comment on above: Result Comment: Erlinda ents treated with Sulfasalazine may generate falsely decreased results for ALT. Performed By: #### C MP #### [address] [address] Anion gap [Moles/Vol] 13 mmol/L Normal 10 - 20 [facility] Comment on above: Performed By: #### C MP #### [address] [address] AST [Catalytic activity/Vol] 15 U/L Normal 9 - 39 [facility] Comment on above: Performed By: #### C MP #### [address] [address] Bilirubin [Mass/Vol] 0.7 mg/dL Normal 0.0 - 1.2 [facility] Comment on above: Performed By: #### C MP #### [address] [address] Calcium [Mass/Vol] 9.4 mg/dL Normal 8.6 - 10.3 [facility] Comment on above: Performed By: #### C MP #### [address] [address] Chloride [Moles/Vol] 103 mmol/L Normal 98 - 107 [facility] Comment on above: Performed By: #### C MP #### [address] [address] Creatinine [Mass/Vol] 0.59 mg/dL Normal 0.50 - 1.05 [facility] Comment on above: Performed By: #### C MP #### [address] [address] eGFR FEMALE >90 Normal >90 [facility] Comment on above: Result Comment: CALC ULATIONS OF ESTIMATED GFR ARE PERFORMED USING THE 2020 CKD-EPI STUDY REFIT EQUATION WITHOUT THE RACE VARIABLE FOR THE IDMS-TRACEABLE CREATININE METHODS. https://jasn.asnjournals.org/content/early//ASN.42512 99390 Performed By: #### C MP #### [address] [address] Glucose [Mass/Vol] 101 mg/dL High 74 - 99 [facility] Comment on above: Performed By: #### C MP #### [address] [address] HCO3 (Bld) [Moles/Vol] 24 mmol/L Normal 21 - 32 [facility] Comment on above: Performed By: #### C MP #### [address] [address] Potassium [Moles/Vol] 3.3 mmol/L Low 3.5 - 5.3 [facility] Comment on above: Performed By: #### C MP #### [address] [address] Protein [Mass/Vol] 8.2 g/dL Normal 6.4 - 8.2 [facility] Comment on above: Performed By: #### C MP #### [address] [address] Sodium [Moles/Vol] 137 mmol/L Normal 136 - 145 [facility] Comment on above: Performed By: #### C MP #### [address] [address] Urea nitrogen [Mass/Vol] 10 mg/dL Normal 6 - 23 [facility] Comment on above: Performed By: #### C MP #### [facility] [address] [place] [address] CT ABDOMEN AND PELVIS W IV C [facility] 11-30-2021 CT ABDOMEN AND PELVIS W IV CONTRAST Patient Name: MADDIE NELSON STUDY: CT ABDOMEN AND PELVIS W IV CONTRAST; 11/30/2021 4:17 pm INDICATION: R lower abd pain . COMPARISON: None. ACCESSION NUMBER(S): [id number] ORDERING CLINICIAN: VERONA AVILES TECHNIQUE: CT of the abdomen and pelvis was performed. Standard contiguous axial images were obtained at 3 mm slice thickness through the abdomen and pelvis. Coronal and sagittal reconstructions at 3 mm slice thickness were performed. 90 milliliter OMNIPAQUE 350 contrast administered intravenously without immediate complication. FINDINGS: Exam is slightly degraded by motion. LOWER CHEST: Clear lung bases. Normal heart size. No pleural effusion. Mild pectus deformity. ABDOMEN: LIVER: Normal size, contour, and density. No focal lesion evident. GALLBLADDER: Normal size gallbladder. No radiopaque gallstones. BILE DUCTS: Normal caliber. PANCREAS: The pancreas appears within normal limits, no evidence of pancreatitis or mass. SPLEEN: Normal size. Homogeneous enhancement. ADRENAL GLANDS: Within normal limits. KIDNEYS AND URETERS: Normal size kidneys. No hydroureteronephrosis or urinary tract stone. No focal lesion evident. PELVIS: BLADDER: The bladder is full, although does not appear overly distended. No abnormality of the bladder. REPRODUCTIVE ORGANS: Normal size uterus and ovaries. No adnexal mass or inflammatory process. BOWEL: The stomach is unremarkable. The small bowel is normal in caliber without evidence of focal wall thickening or obstruction. Prominent colonic stool. No colonic wall thickening. Appendix is visualized and is normal in caliber, with no surrounding inflammatory change. VESSELS: The aorta and IVC are within normal limits. The principal vasculature of the abdomen and pelvis is patent. No aneurysm. PERITONEUM/RETROPERITON EUM/LYMPH NODES: There is no free or loculated intraperitoneal or retroperitoneal fluid collection, no free intraperitoneal air. No adenopathy. BONES AND ABDOMINAL WALL: No evidence of acute fracture. No suspicious osseous lesions are identified. The abdominal wall soft tissues appear normal. IMPRESSION: 1. Normal appendix. No acute process is evident in the abdomen or pelvis. 2. Prominent colonic stool noted. Correlate for constipation. Electronically signed by: STACI MARIE MD Normal [facility] HCG,URINEon 11-30-2021 Beta HCG ( test) Ql (U) Negative Normal Negative [facility] Comment on above: Performed By: #### H CGU #### [address] [address] LIPASEon 11-30-2021 Lipase [Catalytic activity/Vol] 14 U/L Normal 9 - 82 [facility] Comment on above: Result Comment: Kenisha puncture immediately after or during the administration of Metamizole may lead to falsely low results. Testing should be performed immediately prior to Metamizole dosing. F-xlidvc-y-benzoquinone imine (metabolite of Acetaminophen) will generate erroneously low results in samples for patients that have taken toxic doses of acetaminophen. Performed By: #### L IPAS #### [address] [address] Provider Note - ED v3on 11-09 Provider Note - ED v3 Provider Note: Chart Review: ED NOTES ED NOTES: HPI: Patient complains of pain in the umbilical region and right lower abdomen that started this morning. She states that when she awoke she has pain with movement 8/10 but almost 0 at rest. She notes normal bowel movements denies any nausea vomiting fever urinary burning or frequency. She is currently on her period. Denies any abdominal surgeries or chronic medical history. ROS: All systems are negative other than as noted in HPI. Physical Exam I have reviewed the triage vital signs. Const: Well nourished, well developed, appears stated age, no acute distress Eyes: PERRL, EOM intact, no conjunctival injection, vision grossly normal HENT: Neck supple without meningismus , Moist mucous membranes, no pharyengeal swelling or exudate CV: Regular rate and rhythm, Warm, well-perfused extremities. Chest non tender RESP: Lungs clear bilaterally, Unlabored respiratory effort GI: soft, umbilical tenderness. Mild Rovsing. Negative heel strike and conveyor technician., non-distended, no masses : MSK: No gross deformities appreciated Back: Non tender, no pain with ROM Skin: Warm, dry. No rashes Neuro: Alert and oriented x4, GCS 15 , flight controls engineer II-XII grossly intact. Sensation and motor function of extremities grossly intact. Psych: Appropriate mood and affect. I have reviewed and confirmed nurses/medics notes for patient past, social and family history. Portions of this note were dictated by speech recognition. An attempt at proof reading was made to minimize errors. Minor errors in electrical logging operator may be present. HISTORY OF PRESENTING ILLNESS MADDIE is a 21 year old Female and was seen by me at 30-Nov-2021 14:41 for a chief complaint of abdominal pain (STATES SHE WOKE TODAY AT 0900 WITH MID ABD PAIN. C/O NAUSEA EARLIER. DENIES V/D OR URINARY SYMPTOMS)(1). Triage Information: Most recent Vital Sign Value Date Temp (F): 97.6 11-30-2021 14:50 Temp (C): 36.4 11-30-2021 14:50 Heart Rate (beats/min): 116 11-30-2021 14:50 Respirations (breaths/min): 20 11-30-2021 14:50 SpO2 (%): 100 11-30-2021 14:50 BP Systolic (mm Hg): 134 11-30-2021 14:50 BP Diastolic (mm Hg): 94 11-30-2021 14:50 PAST MEDICAL HISTORY ALLERGIES/INTOLERANCES: No Known Allergies HEALTH HISTORY: No documented data. OUTPATIENT MEDICATIONS: Home Medications Review Status for Reconciliation: Complete Med Status: Patient Currently Takes Medications Drug Name: Multiple Vitamins oral tablet, chewable Instructions: 1 tab(s) orally once a day Drug Name: ibuprofen 200 mg oral tablet Instructions: 1 tab(s) orally every 6 hours, As Needed Drug Name: acetaminophen 325 mg oral tablet Instructions: 1 tab(s) orally every 4 hours, As Needed SIGNIFICANT EVENTS: No documented data. CRITICAL CARE RESULTS: Recent Lab Results: I have reviewed these laboratory results: Complete Blood Count + Differential 30-Nov-2021 15:08:00 ResultValue White Blood Cell Count 5.9 Nucleated Erythrocyte Count 0.1 Red Blood Cell Count 4.38 HGB 13.5 HCT 38.5 MCV 88 MCHC 35.0 PLT 338 RDW-CV 12.8 Neutrophil % 52.1 Lymphocyte % 40.0 Monocyte % 5.8 Eosinophil % 1.4 Basophil % 0.7 Neutrophil Count 3.10 Lymphocyte Count 2.30 Monocyte Count 0.30 Eosinophil Count 0.10 Basophil Count 0.00 Comprehensive Metabolic Panel 30-Nov-2021 15:08:00 ResultValue Glucose, Serum 101 H NA 137 K 3.3 L CL 103 Bicarbonate, Serum 24 Anion Gap, Serum 13 BUN 10 CREAT 0.59 GFR Female >90 Calcium, Serum 9.4 ALB 5.0 ALKP 53 T Pro 8.2 T Bili 0.7 Alanine Aminotransferase, Serum 11 Aspartate Transaminase, Serum 15 Urine Test 30-Nov-2021 15:08:00 ResultValue HCG, Urine NEGATIVE Urinalysis 30-Nov-2021 15:08:00 ResultValue Color, Urine Straw Reference Range: STRAW,YELLOW Appearance, Urine HAZY Specific [place], Urine 1.005 pH, Urine 7.0 Protein, Urine NEGATIVE Glucose, Urine NEGATIVE Blood, Urine LARGE(3+) A Ketones, Urine NEGATIVE Bilirubin, Urine NEGATIVE Urobilinogen, Urine <2.0 Nitrite, Urine Negative Leukocyte Esterase, Urine NEGATIVE Urinalysis, Microscopic 30-Nov-2021 15:08:00 ResultValue White Cells 1 Red Blood Cells <1 Epithelial Cells, Squamous 10 Bacteria, Urine 1+ A Mucous 1+ Lipase, Serum 30-Nov-2021 15:08:00 ResultValue Lipase, Serum 14 Radiology Results: Impression: 1. Normal appendix. No acute process is evident in the abdomen or pelvis. 2. Prominent colonic stool noted. Correlate for constipation. CT Abdomen and Pelvis with IV Contrast [Nov 30 2021 4:35PM] [facility] MDM/ED COURSE: 1649-final results reviewed with patient who rest in bed in no acute distress. Work-up is unremarkable as noted below. Patient comfortable discharge home at this time. Your lab work, urinalysis, and CAT scan today did not show any concerning (more content not included)... Normal [facility] Risk Screen - Adult Emergenc yon 11-30-2021 Risk Screen - Adult Emergency Preferred Language: Preferred Language: Preferred Language for Discussing Health Care (patient/designee)Montserrat beltran Advanced Directives: Advance Directive/DNRno Family Violence Adult: Abuse Screen: Are you or have you been threatened or abused physically, emotionally, or sexually by anyoneno Learning Assessment (Patient): Learning Assessment (Patient): Patient is Able to be Assessed for Learningyes Factors Influencing Readiness to LearnN/A Factors that Impact Ability to Learnnone Devices/Methods Used to Communicatenone Learning Preferencesverbal instruction; written material Cultural Considerationsnone Developmental Considerationsnone Presybeterian Considerationsnone Other Learnersfriend Learning Assessment (Other Learner): Learning Assessment (Other Learner): Other learner availableyes... Learnerfriend Factors Influencing Readiness to LearnN/A Factors that Impact Ability to Learnnone Devices/Methods Used to Communicatenone Learning Preferencesverbal instruction, written material Cultural Considerationsnone Developmental Considerationsnone Presybeterian Considerationsnone Pressure Injury/TB/Substance: Pressure Injury: Do you have a coughno Smoking Statusnever smoker Alcohol Useoccasionally Drug Usedenies Admission Risk Screen: Significant IndicatorsComplete CAGE: CAGE: Is this an injured patient at a Trauma Center ([facility]/[place]): no Electronic Signatures: Joya Hall (RN) (Signed 30-Nov-2021 14:57) Authored: Preferred Language, Advanced Directives, Family Violence Adult, Learning Assessment (Patient), Learning Assessment (Other Learner), Pressure Injury/TB/Substance, Pressure Injury, CAGE Last Updated: 30-Nov-2021 14:57 by Joya Hall (RN) [facility] Triage - EDon 11-30-2021 Triage - ED Quick Triage: Are You no Have You Given In The Last 6 Weeksno Are You Currently Breastfeedingno Chart Review: PRIMARY ASSESSMENT ABCD Normal Findings: airway open and patent, circulation normal and alert and oriented ARRIVAL INFORMATION Means of Arrival: Ambulatory Mode of Arrival: private vehicle Arrival From: home Accompanied By: self Language: Spoken Language Preferred: Palestinian Reading Language Preferred: Palestinian Present on Arrival: Device Present on Arrival to ED: no CHIEF COMPLAINT MADDIE GRADY is a Female patient with a chief complaint of abdominal pain (STATES SHE WOKE TODAY AT 0900 WITH MID ABD PAIN. C/O NAUSEA EARLIER. DENIES V/D OR URINARY SYMPTOMS). Triage Date/Time: 30-Nov-2021 14:42 HARSHAD: 3 Pain Rating (0-10): 2 = Mild Pain location: ABD Vital Signs: Temperature: 97.6F ( 36.4C) taken oral Blood Pressure: 134/94 Mean: Heart Rate: 116 Respiratory Rate: 20 Pulse Oximetry: 100% on room air, no respiratory support. Height: 5 feet 1.00 inches. 154.9 CM Weight: 148.3 pounds. Calculated 67.3 kg. (stated) Calculated BMI (kg/m2): 28.048 Calculated BSA (m2) 1.70 [place] Coma Scale: Best Eye Response: (E4) spontaneous Best Motor Response: (M6) obeys commands Best Verbal Response: (V5) oriented [place] Score: 15 Allergies: no Last menstrual period: 26-Nov-2021 Patient has homicidal thoughts: no Symptoms Are POSITIVE For: nausea. Symptoms Are Negative For: constipation, diarrhea, fever and vomiting. Risk Screens Suicide Risk Screen In the Past Month: Have you wished you were or wished you could go to sleep and not wake up no In the Past Month: Have you had any actual thoughts of killing yourself no In Your Lifetime: Have you ever done anything, started to do anything, or prepared to do anything to end your life no Gutierrez Fall Scale Screening Has the patient fallen before (or is the patient in the ED as a result of a fall) has not had a fall Does the patient have an impaired gait does not have impaired gait Is the patient cognitively impaired not cognitively impaired Interventions: Gutierrez Fall Interventions: LOW INTERVENTIONS: *patient oriented to surroundings and call system, * patient/family falls education completed and documented, *patients fall status communicated during bedside handoff, *whiteboard updated, *mode of toileting discussed with patient, *bed in low position with brakes locked, *call light in reach, * non-skid footwear TRAVEL HISTORY Travel History Coronavirus Screening: no exposure or symptoms Travel Exposure History: NO travel to International locations in the past 30 days PAIN Pain Scale Used: KAUR Pain Rating (0-10): 2 = Mild Past Medical History: Past Medical History Reviewedyes Electronic Signatures: Joya Hall (KIAN) (Signed 30-Nov-2021 14:55) Entered: Risk Screens, Pain, Arrival, ABCD, Travel History, Chart Review, Scores, Past Medical History Authored: Quick Triage, Risk Screens, Pain, Arrival, ABCD, Travel History, Chart Review, Scores, Past Medical History Last Updated: 30-Nov-2021 14:55 by Joya Hall (KIAN) Normal [facility] UA MICROSCOPICon 11-30-2021 BACTERIA 1+ /HPF Abnormal [facility] Comment on above: Performed By: #### U [facility] #### [address] [address] Mucus Ql (Urine sed) 1+ /LPF Normal [facility] Comment on above: Performed By: #### U AMIC #### [place] [address] RBC (U) [#/Vol] /uL Normal 0-5 [facility] Comment on above: Performed By: #### U AMIC #### [place] [address] SQUAMOUS EPITH. CELLS 10 /HPF Normal [facility] Comment on above: Performed By: #### U AMIC #### [place] [address] WBC 1 /HPF Normal 0-5 [facility] Comment on above: Performed By: #### U AMIC #### [place] [id number] URINALYSISon 11-30-2021 Appearance (U) HAZY Normal CLEAR [facility] Comment on above: Performed By: #### U A #### [place] [address] Bilirubin Ql (U) Negative Normal NEGATIVE [facility] Comment on above: Performed By: #### U A #### [address] [address] Color (U) Straw Normal STRAW,YELLOW [facility] Comment on above: Performed By: #### U A #### [place] [address] Glucose Ql (U) Negative Normal NEGATIVE [facility] Comment on above: Performed By: #### U A #### [place] [id number] Hemoglobin Ql (U) LARGE(3+) Abnormal NEGATIVE [facility] Comment on above: Performed By: #### U A #### [address] [address] Ketones Ql (U) Negative Normal NEGATIVE [facility] Comment on above: Performed By: #### U A #### [address] [address] Leukocyte esterase Test strip Ql (U) Negative Normal NEGATIVE [facility] Comment on above: Performed By: #### U A #### [address] [address] Nitrite Ql (U) Negative Normal NEGATIVE [facility] Comment on above: Performed By: #### U A #### [address] [address] pH (U) 7.0 [pH] Normal 5.0 - 8.0 [facility] Comment on above: Performed By: #### U A #### [address] [address] Protein Ql (U) Negative Normal NEGATIVE [facility] Comment on above: Performed By: #### U A #### [address] [address] Specific gravity (U) [Rel density] 1.005 Normal 1.005 - 1.035 [facility] Comment on above: Performed By: #### U A #### [address] [address] Urobilinogen (U) [Mass/Vol] mg/dL Normal 0.0 - 1.9 [facility] Comment on above: Performed By: #### U A #### [address] [address] Vital Signs Date Time Vital Sign Value Performing Clinician Facility 02-18-2025 14:090400 Body height 157.48 cm Minerva LUBIN Work Phone: [facility] 02-18-2025 14:080400 Body mass index (BMI) [Ratio] 35.8 kg/m2 Minerva LUBIN Work Phone: [facility] 02-18-2025 14:08040 Body weight 88.9 kg Minerva LUBIN Work Phone: [facility] 02-18-2025 14:08-0400 Diastolic blood pressure 76 mm[Hg] Minerva LUBIN Work Phone: [facility] 02-18-2025 14:08-0400 Systolic blood pressure 113 mm[Hg] Minerva Flower CONCRETE BATCHING PLANT OPERATOR-C Work Phone: [facility] 02-03-2025 13:42-0400 Body height 157.48 cm Minerva Flower CONCRETE BATCHING PLANT OPERATOR-C Work Phone: [facility] 02-03-2025 13:42-0400 Body mass index (BMI) [Ratio] 35.4 kg/m2 Minerva Flower CONCRETE BATCHING PLANT OPERATOR-C Work Phone: [facility] 02-03-2025 13:42-0400 Body weight 87.71 kg Minerva Flower CONCRETE BATCHING PLANT OPERATOR-C Work Phone: [facility] 02-03-2025 13:42-0400 Diastolic blood pressure 80 mm[Hg] Minerva Flower CONCRETE BATCHING PLANT OPERATOR-C Work Phone: [facility] 02-03-2025 13:42-0400 Systolic blood pressure 108 mm[Hg] Minerva Flower CONCRETE BATCHING PLANT OPERATOR-C Work Phone: [facility] 01-20-2025 14:36-0400 Body height 157.48 cm Minerva Flower CONCRETE BATCHING PLANT OPERATOR-C Work Phone: [facility] 01-20-2025 14:36-0400 Body mass index (BMI) [Ratio] 34.7 kg/m2 Minerva Flower CONCRETE BATCHING PLANT OPERATOR-C Work Phone: [facility] 01-20-2025 14:36-0400 Body weight 86.18 kg Minerva Flower CONCRETE BATCHING PLANT OPERATOR-C Work Phone: [facility] 01-20-2025 14:36-0400 Diastolic blood pressure 75 mm[Hg] Minerva Flower CONCRETE BATCHING PLANT OPERATOR-C Work Phone: [facility] 01-20-2025 14:36-0400 Systolic blood pressure 115 mm[Hg] Minerva Flower CONCRETE BATCHING PLANT OPERATOR-C Work Phone: [facility] 01-06-2025 12:59-0400 Body height 157.48 cm Minerva Flower CONCRETE BATCHING PLANT OPERATOR-C Work Phone: [facility] 01-06-2025 12:59-0400 Body mass index (BMI) [Ratio] 34.4 kg/m2 Minerva Flower CONCRETE BATCHING PLANT OPERATOR-C Work Phone: [facility] 01-06-2025 12:59-0400 Body weight 85.44 kg Minerva Flower CONCRETE BATCHING PLANT OPERATOR-C Work Phone: [facility] 01-06-2025 12:59-0400 Diastolic blood pressure 86 mm[Hg] Minerva Flower CONCRETE BATCHING PLANT OPERATOR-C Work Phone: [facility] 01-06-2025 12:59-0400 Systolic blood pressure 131 mm[Hg] Minerva Flower CONCRETE BATCHING PLANT OPERATOR-C Work Phone: [facility] 12-18-2024 14:03-0400 Body mass index (BMI) [Ratio] 33.1 kg/m2 Minerva Flower CONCRETE BATCHING PLANT OPERATOR-C Work Phone: [facility] 12-18-2024 14:03-0400 Body weight 82.27 kg Minerva Flower CONCRETE BATCHING PLANT OPERATOR-C Work Phone: [facility] 12-18-2024 14:03-0400 Diastolic blood pressure 77 mm[Hg] Minerva Flower CONCRETE BATCHING PLANT OPERATOR-C Work Phone: [facility] 12-18-2024 14:03-0400 Systolic blood pressure 112 mm[Hg] Minerva Flower CONCRETE BATCHING PLANT OPERATOR-C Work Phone: [facility] 11-18-2024 15:40-0400 Body height 157.48 cm Minerva Flower CONCRETE BATCHING PLANT OPERATOR-C Work Phone: [facility] 11-18-2024 15:40-0400 Body mass index (BMI) [Ratio] 32.3 kg/m2 Minerva Flower CONCRETE BATCHING PLANT OPERATOR-C Work Phone: [facility] 11-18-2024 15:40-0400 Body weight 80.34 kg Minerva Flower CONCRETE BATCHING PLANT OPERATOR-C Work Phone: [facility] 11-18-2024 15:40-0400 Diastolic blood pressure 72 mm[Hg] Minerva Flower CONCRETE BATCHING PLANT OPERATOR-C Work Phone: [facility] 11-18-2024 15:40-0400 Systolic blood pressure 114 mm[Hg] Minerva Flower CONCRETE BATCHING PLANT OPERATOR-C Work Phone: [facility] 10-22-2024 14:18-0500 Body mass index (BMI) [Ratio] 31.5 kg/m2 Minerva Flower CONCRETE BATCHING PLANT OPERATOR-C Work Phone: [facility] 10-22-2024 14:18-0500 Body weight 78.13 kg Minerva Flower CONCRETE BATCHING PLANT OPERATOR-C Work Phone: [facility] 10-22-2024 14:18-0500 Diastolic blood pressure 74 mm[Hg] Minerva Flower CONCRETE BATCHING PLANT OPERATOR-C Work Phone: [facility] 10-22-2024 14:18-0500 Systolic blood pressure 118 mm[Hg] Minerva Flower CONCRETE BATCHING PLANT OPERATOR-C Work Phone: [facility] 09-23-2024 13:32-0500 Body mass index (BMI) [Ratio] 30.5 kg/m2 Minerva Flower CONCRETE BATCHING PLANT OPERATOR-C Work Phone: [facility] 09-23-2024 13:32-0500 Body weight 75.74 kg Minerva Flower CONCRETE BATCHING PLANT OPERATOR-C Work Phone: [facility] 09-23-2024 13:32-0500 Diastolic blood pressure 81 mm[Hg] Minerva Flower CONCRETE BATCHING PLANT OPERATOR-C Work Phone: [facility] 09-23-2024 13:32-0500 Systolic blood pressure 119 mm[Hg] Minerva Flower CONCRETE BATCHING PLANT OPERATOR-C Work Phone: [facility] 08-22-2024 14:24-0500 Body mass index (BMI) [Ratio] 21.9 kg/m2 Minerva Flower CONCRETE BATCHING PLANT OPERATOR-C Work Phone: [facility] 08-22-2024 14:24-0500 Body weight 54.43 kg Minerva Flower CONCRETE BATCHING PLANT OPERATOR-C Work Phone: [facility] 08-22-2024 14:24-0500 Diastolic blood pressure 86 mm[Hg] Minerva Flower CONCRETE BATCHING PLANT OPERATOR-C Work Phone: [facility] 08-22-2024 14:24-0500 Systolic blood pressure 120 mm[Hg] Minerva Flower CONCRETE BATCHING PLANT OPERATOR-C Work Phone: [facility] 08-13-2024 14:05-0500 Body mass index (BMI) [Ratio] 30.4 kg/m2 Minerva Flower CONCRETE BATCHING PLANT OPERATOR-C Work Phone: [facility] 08-13-2024 14:05-0500 Body weight 75.52 kg Minerva Flower CONCRETE BATCHING PLANT OPERATOR-C Work Phone: [facility] 08-13-2024 14:05-0500 Diastolic blood pressure 81 mm[Hg] Minerva Flower CONCRETE BATCHING PLANT OPERATOR-C Work Phone: [facility] 08-13-2024 14:05-0500 Systolic blood pressure 122 mm[Hg] Minerva Flower CONCRETE BATCHING PLANT OPERATOR-C Work Phone: [facility] 08-11-2024 11:46-0500 Body mass index (BMI) [Ratio] 30.4 kg/m2 Minerva Flower CONCRETE BATCHING PLANT OPERATOR-C Work Phone: [facility] 08-11-2024 11:46-0500 Body weight 75.46 kg Minerva Flower CONCRETE BATCHING PLANT OPERATOR-C Work Phone: [facility] 08-11-2024 11:46-0500 Diastolic blood pressure 84 mm[Hg] Minerva Flower CONCRETE BATCHING PLANT OPERATOR-C Work Phone: [facility] 08-11-2024 11:46-0500 Systolic blood pressure 128 mm[Hg] Minerva Flower CONCRETE BATCHING PLANT OPERATOR-C Work Phone: [facility] 07-29-2024 13:36-0500 Body height 157.5 cm Minerva Flower HIGH RISK CASE MANAGER-SHINGLE GRADER Work Phone: [facility] 07-29-2024 13:36-0500 Body mass index (BMI) [Ratio] 30.84 kg/m2 Minerva Flower HIGH RISK CASE MANAGER-SHINGLE GRADER Work Phone: [facility] 07-29-2024 13:36-0500 Body weight 76.48 kg Minerva Flower HIGH RISK CASE MANAGER-SHINGLE GRADER Work Phone: [facility] 07-25-2024 16:17-0500 Body height 157.5 cm Minerva Flower HIGH RISK CASE MANAGER-SHINGLE GRADER Work Phone: [facility] 07-25-2024 16:17-0500 Body mass index (BMI) [Ratio] 30.8 kg/m2 Minerva Garcialey HIGH RISK CASE MANAGER-SHINGLE GRADER Work Phone: [facility] 07-25-2024 16:17-0500 Body weight 76.39 kg Minerva Flower HIGH RISK CASE MANAGER-SHINGLE GRADER Work Phone: [facility] 07-25-2024 16:17-0500 Diastolic blood pressure 85 mm[Hg] Minerva Flower HIGH RISK CASE MANAGER-SHINGLE GRADER Work Phone: [facility] 07-25-2024 16:17-0500 Heart rate 78 /min Minerva Garcialey HIGH RISK CASE MANAGER-SHINGLE GRADER Work Phone: [facility] 07-25-2024 16:17-0500 Systolic blood pressure 122 mm[Hg] Minerva Flower HIGH RISK CASE MANAGER-SHINGLE GRADER Work Phone: [facility] 11-30-2021 18:42-0400 Diastolic blood pressure 83 mm[Hg] Text Entry [facility] 11-30-2021 18:42-0400 Heart rate 98 /min Text Entry [facility] 11-30-2021 18:42-0400 Respiratory rate 18 /min Text Entry [facility] 11-30-2021 18:42-0400 SaO2% (BldA) [Mass fraction] 100 % Text Entry [facility] 11-30-2021 18:42-0400 Systolic blood pressure 123 mm[Hg] Text Entry [facility] 11-30-2021 16:50-0400 Body height 154.9 cm Text Entry [facility] 11-30-2021 16:50-0400 Body temperature 97.52 [degF] Text Entry [facility] 11-30-2021 16:50-0400 Body weight 67.3 kg Text Entry [facility] Encounters Encounter Date Encounter Type Care Provider Facility Start: 02-18-2025 End: 02-18-2025 ambulatory María Elena Solomon Facility:[facility] Start: 02-18-2025 End: 02-18-[address] María Elena Solomon DO -[facility] Work Phone: Start: 02-03-2025 End: 02-03-2025 Patient encounter procedure Chioma Springer CONCRETE B[employer]ING PLANT OPERATOR-C -[facility] Work Phone: Start: 02-03-2025 End: 02-03-2025 ambulatory Minerva Flower CONCRETE BATCHING PLANT OPERATOR-C Work Phone: [facility] Work Phone: Start: 02-03-2025 End: 02-03-2025 ambulatory Minerva Flower Facility:[facility] Start: 01-20-2025 End: 01-20-2025 Patient encounter procedure Amber Gomez BONILLA -[facility] Work Phone: Start: 01-20-2025 End: 01-20-2025 ambulatory Minerva Flower CONCRETE BATCHING PLANT OPERATOR-C Work Phone: [facility] Work Phone: Start: 01-13-2025 End: 01-13-2025 ambulatory MD [facility] Start: 01-08-2025 End: 01-08-2025 ambulatory Minerva Flower CONCRETE BATCHING PLANT OPERATOR-C Work Phone: [facility] Work Phone: Start: 01-08-2025 End: 01-08-[address] María Elena Solomon DO -[facility] Work Phone: Start: 01-08-2025 End: 01-08-2025 ambulatory María Elena Solomon Facility:[facility] Start: 01-06-2025 End: 01-06-2025 ambulatory Minerva Flower CONCRETE BATCHING PLANT OPERATOR-C Work Phone: [facility] Work Phone: Start: 01-06-2025 End: 01-06-2025 Patient encounter procedure Elle Poe CNM -[facility] Work Phone: Start: 01-06-2025 End: 01-06-2025 ambulatory María Elena Solomon Facility:[facility] Start: 12-18-2024 End: 12-18-[address] María Elena Solomon DO -[facility] Work Phone: Start: 12-18-2024 End: 12-18-2024 ambulatory María Elena Solomon Facility:[facility] Start: 11-18-2024 End: 11-18-2024 Patient encounter procedure Chioma VALENTINEC -[facility] Work Phone: Start: 11-18-2024 End: 11-18-2024 ambulatory Minerva Flower Facility:[facility] Start: 11-10-2024 End: 11-10-2024 ambulatory Minerva Flower CONCRETE BATCHING PLANT OPERATOR-C Work Phone: [facility] Work Phone: Start: 11-10-2024 End: 11-10-[address] Radha Peters MD -[facility] Work Phone: Start: 11-10-2024 End: 11-10-2024 ambulatory Minerva Flower Facility:[facility] Start: 10-22-2024 End: 10-22-2024 Patient encounter procedure Chioma LUBIN -Laboratory, Specimen Work Phone: Start: 10-22-2024 End: 10-22-2024 Patient encounter procedure Chioma Springer NP-C -[facility] Work Phone: Start: 10-22-2024 End: 10-22-2024 ambulatory Minerva Flower Facility:[facility] Start: 10-22-2024 End: 10-22-2024 ambulatory Minerva Flower Facility:[facility] Start: 09-23-2024 End: 09-23-[address] Radha Peters MD -[facility] Work Phone: Start: 09-23-2024 End: 09-23-2024 ambulatory Minerva D Flower Facility:[facility] Start: 09-16-2024 End: 09-16-2024 ambulatory [facility] Start: 09-15-2024 End: 09-15-[address] Radha Peters MD -Lab, [facility] Start: 09-15-2024 End: 09-15-2024 ambulatory Minerva D Flower Facility:[facility] Start: 08-22-2024 End: 08-22-[address] Radha Peters MD -Ultrasound, [facility] Work Phone: Start: 08-22-2024 End: 08-22-2024 Patient encounter procedure Elle Poe CNM -[facility] Work Phone: Start: 08-22-2024 End: 08-22-2024 ambulatory Minerva D Flower Facility:[facility] Start: 08-22-2024 End: 08-22-2024 ambulatory Minerva D Greenfield Facility:[facility] Start: 08-15-2024 Non-patient / Non-visit Faith herbert RN -[facility] Work Phone: Start: 08-15-2024 ambulatory Faith Wall Facility :[facility] Start: 08-13-2024 End: 08-13-[address] Radha Peters MD -[facility] Work Phone: Start: 08-13-2024 End: 08-13-2024 ambulatory Minerva D Flower Facility:[facility] Start: 08-11-2024 End: 08-11-[address] Radha Peters MD -Laboratory Work Phone: Start: 08-11-2024 End: 08-11-[address] Radha Peters MD -[facility] Work Phone: Start: 08-11-2024 End: 08-11-2024 ambulatory Minerva Kolby Flower Facility:[facility] Start: 08-11-2024 End: 08-11-2024 ambulatory Minerva Garcialey Facility:[facility] Start: 07-29-2024 End: 07-29-2024 ambulatory MINERVA Jarrett [facility] Start: 07-29-2024 End: 07-29-2024 Office outpatient visit 25 minutes Minerva Flower HIGH RISK CASE MANAGER-SHINGLE GRADER Work Phone: [facility] Comment on above: Leukocytosis, unspec ified type (Primary Dx); B12 deficiency; Vitamin D deficiency Start: 07-29-2024 End: 07-29-2024 ambulatory [facility] Start: 07-25-2024 End: 07-25-2024 Patient encounter status Minerva Kolby Torres HIGH RISK CASE MANAGER-SHINGLE GRADER Work Phone: [facility] Work Phone: Start: 07-25-2024 End: 07-25-2024 Periodic preventive med est patient 18-39 yrs Minerva Jarrett Flower HIGH RISK CASE MANAGER-SHINGLE GRADER Work Phone: [facility] Comment on above: Wellness examination (Primary Dx); Vitamin D deficiency; Iron deficiency anemia, unspecified iron deficiency anemia type; Amenorrhea Start: 07-25-2024 End: 07-25-2024 ambulatory [facility] Start: 07-25-2024 End: 07-25-2024 Encounter for general adult medical examination without abnormal findings MINERVA Jarrett [facility] Start: 10-19-2023 End: 10-19-2023 ambulatory [facility] Kolby [facility] Ambulatory Start: 10-13-2023 End: 10-13-2023 ambulatory MINERVA Kolby [facility] Start: 07-05-2023 End: 07-05-2023 Office outpatient visit 25 minutes Minerva Flower HIGH RISK CASE MANAGER-SHINGLE GRADER Work Phone: [facility] Comment on above: Pharyngitis, unspeci fied etiology (Primary Dx) Start: 05-30-2023 Encounter for genera l adult medical examination without abnormal findings MINERVA Jarrett [facility] Start: 05-30-2023 Patient encounter status Minerva Flower HIGH RISK CASE MANAGER-SHINGLE GRADER Work Phone: [facility] Work Phone: Start: 11-30-2021 End: 11-30-2021 Emergency department patient visit Verona Aviles [facility] Emergency 14 Procedures Date Procedure Procedure Detail Performing Clinician Start: 01-08-2025 Ultrasound scan for growth Minerva Flower CONCRETE BATCHING PLANT OPERATOR-C Work Phone: Start: 01-06-2025 Serologic test for syphilis Minerva Flower CONCRETE BATCHING PLANT OPERATOR-C Work Phone: Start: 11-10-2024 Ultrasonography in f irst trimester Minerva Flower CONCRETE BATCHING PLANT OPERATOR-C Work Phone: Start: 10-22-2024 End: 10-22-2024 Polymerase chain reaction analysis Minerva Flower CONCRETE BATCHING PLANT OPERATOR-C Work Phone: Start: 08-22-2024 Transvaginal obstetr ic ultrasonography Minerva Flower CONCRETE BATCHING PLANT OPERATOR-C Work Phone: Start: 08-22-2024 Urine culture Minerva hanna CONCRETE BATCHING PLANT OPERATOR-C Work Phone: Start: 10-13-2023 CBC W Auto Different ial panel - Blood MINERVA FLOWER Start: 10-13-2023 Ferritin [Mass/volum e] in Serum or Plasma MINERVA FLOWER Start: 10-13-2023 IRON AND TIBC MINERVA Hanna Start: 10-13-2023 PTH, INTACT MINERVA FLOWER Start: 10-13-2023 VITAMIN D 25-HYDROXY,TOTAL MINERVA FLOWER Start: 05-23-2023 Lipid 1996 panel - S jamison or Plasma Minerva Flower HIGH RISK CASE MANAGER-SHINGLE GRADER Work Phone: Plan of Treatment Date Care Activity Detail Author Start: 2048 Zoster Vaccines (1 of 2) Zoste r Vaccines (1 of 2) [facility] Start: 05-23-2028 Lipid panel Lipid Panel [facility] Start: 07-26-2025 Yearly Adult Physical Yearly Adult P hysical [facility] Start: 02-03-2025 CBC W Auto Different ial panel - Blood [facility] Start: 07-29-2024 End: 07-29-2025 CBC W Auto Differential panel - Blood CBC and Auto Differential Lab Routine Leukocytosis, unspecified type Expected: 07/29/2024 (Approximate), Expires: 07/29/2025 [facility] Service Area Work Phone: Comment on above: Expected: 07/29/2024 (Approximate), Expires: 07/29/2025 Start: 07-25-2024 End: 07-25-2025 25-hydroxyvitamin D3 [Mass/volume] in Serum or Plasma Vitamin D 25-Hydroxy,Total (for eval of Vitamin D levels) Lab Routine Vitamin D deficiency Expected: 07/25/2024 (Approximate), Expires: 07/25/2025 [facility] Work Phone: Comment on above: Expected: 07/25/2024 (Approximate), Expires: 07/25/2025 Start: 07-25-2024 End: 01-22-2026 CBC W Auto Differential panel - Blood CBC and Auto Differential Lab Routine Wellness examination Expected: 07/25/2024 (Approximate), Expires: 01/22/2026 [facility] Work Phone: Comment on above: Expected: 07/25/2024 (Approximate), Expires: 01/22/2026 Start: 07-25-2024 End: 07-25-2025 Choriogonadotropin.beta subunit [Units/volume] in Serum or Plasma Human Chorionic Gonadotropin, Serum Quantitative Lab Routine Amenorrhea Expected: 07/25/2024 (Approximate), Expires: 07/25/2025 [facility] Work Phone: Comment on above: Expected: 07/25/2024 (Approximate), Expires: 07/25/2025 Start: 07-25-2024 End: 07-25-2025 Cobalamin (Vitamin B12) [Mass/volume] in Serum or Plasma Vitamin B12 Lab Routine Iron deficiency anemia, unspecified iron deficiency anemia type Expected: 07/25/2024 (Approximate), Expires: 07/25/2025 [facility] Work Phone: Comment on above: Expected: 07/25/2024 (Approximate), Expires: 07/25/2025 Start: 07-25-2024 End: 07-25-2025 Comprehensive metabolic 2000 panel - Serum or Plasma Comprehensive Metabolic Panel Lab Routine Wellness examination Expected: 07/25/2024 (Approximate), Expires: 07/25/2025 [facility] Work Phone: Comment on above: Expected: 07/25/2024 (Approximate), Expires: 07/25/2025 Start: 07-25-2024 End: 07-25-2025 Ferritin [Mass/volume] in Serum or Plasma Ferritin Lab Routine Iron deficiency anemia, unspecified iron deficiency anemia type Expected: 07/25/2024 (Approximate), Expires: 07/25/2025 [facility] Work Phone: Comment on above: Expected: 07/25/2024 (Approximate), Expires: 07/25/2025 Start: 07-25-2024 End: 07-25-2025 Hemoglobin A1c/Hemoglobin.total in Blood Hemoglobin A1C Lab Routine Wellness examination Expected: 07/25/2024 (Approximate), Expires: 07/25/2025 [facility] Service Area Work Phone: Comment on above: Expected: 07/25/2024 (Approximate), Expires: 07/25/2025 Start: 07-25-2024 End: 07-25-2025 Iron and Iron binding capacity panel - Serum or Plasma Iron and TIBC Lab Routine Iron deficiency anemia, unspecified iron deficiency anemia type Expected: 07/25/2024 (Approximate), Expires: 07/25/2025 [facility] Work Phone: Comment on above: Expected: 07/25/2024 (Approximate), Expires: 07/25/2025 Start: 07-25-2024 End: 07-25-2025 Lipid 1996 panel - Serum or Plasma Lipid Panel Lab Routine Wellness examination Expected: 07/25/2024 (Approximate), Expires: 07/25/2025 [facility] Work Phone: Comment on above: Expected: 07/25/2024 (Approximate), Expires: 07/25/2025 Start: 07-25-2024 End: 07-25-2025 Parathyrin.intact [Mass/volume] in Serum or Plasma Parathyroid Hormone, Intact Lab Routine Vitamin D deficiency Expected: 07/25/2024 (Approximate), Expires: 07/25/2025 [facility] Work Phone: Comment on above: Expected: 07/25/2024 (Approximate), Expires: 07/25/2025 Start: 07-25-2024 End: 07-25-2025 TSH with reflex to Free T4 if abnormal TSH with reflex to Free T4 if abnormal Lab Routine Wellness examination Expected: 07/25/2024 (Approximate), Expires: 07/25/2025 [facility] Work Phone: Comment on above: Expected: 07/25/2024 (Approximate), Expires: 07/25/2025 Start: 06-03-2024 End: 06-03-2024 Patient encounter procedure 06/03/2024 3:20 PM EDT Office Visit [facility] [address] [place] [id number] Minerva Flower, HIGH RISK CASE MANAGER-SHINGLE GRADER [address] [place] [address] [facility] Start: 05-31-2024 Yearly Adult Physical Yearly Adult P hysical [facility] Start: 05-11-2024 COVID-19 Vaccine ( season) COVID-19 Vaccine ( season) [facility] Start: 05-11-2024 Influenza vaccination Influenza Vacc ine (#1) [facility] Start: 05-11-2023 Influenza vaccination Influenza Vacc ine (#1) [facility] Start: 2020 DTaP/Tdap/Td Vaccine s (1 - Tdap) DTaP/Tdap/Td Vaccines (1 - Tdap) [facility] Start: 2019 Screening for malign ant neoplasm of cervix [facility] Start: 2017 Hepatitis B Vaccines (1 of 3 - 19+ 3-dose series) Hepatitis B Vaccines (1 of 3 - 19+ 3-dose series) [facility] Start: 2016 Hepatitis C screening Hepatitis C Sc caden [facility] Start: 2013 HPV Vaccines (1 - 3- dose series) HPV Vaccines (1 - 3-dose series) [facility] Start: 2011 Varicella vaccination Varicell a Vaccines (1 of 2 - 13+ 2-dose series) [facility] Start: 2009 HPV Vaccines (1 - 2- dose series) HPV Vaccines (1 - 2-dose series) [facility] Start: 1999 MMR Vaccines (1 of 1 - Standard series) MMR Vaccines (1 of 1 - Standard series) [facility] Start: 1999 Varicella vaccination Varicell a Vaccines (1 of 2 - 2-dose childhood series) [facility] Start: 01-19-1999 COVID-19 Vaccine (#1) COVID-19 Vacci ne (#1) [facility] Start: 1998 Hepatitis B Vaccines (1 of 3 - 3-dose series) Hepatitis B Vaccines (1 of 3 - 3-dose series) [facility] Start: 1998 HIV screening HIV Screening [facility] Erythrocyte mean corpuscular volume determination [facility] Hematocrit [Volume Fraction] of Blood [facility] Hemoglobin [Mass/vol ume] in Blood [facility] Leukocytes [#/volume ] in Blood [facility] Liquid based cervica l cytology screening [facility] Mean corpuscular hemoglobin concentration determination [facility] Mean corpuscular hemoglobin determination [facility] Neutrophil count [facility] Neutrophil percent differential count [facility] Platelets [#/volume] in Blood [facility] Red blood cell count [facility] Red cell distributio n width determination [facility] Payers Date Payer Category Payer Unknown [id number] 2024 Self-pay 2023 Managed Care (Private) ELLA RAMIREZ [facility] PLAN [id number] 2023 Private Health Insurance [id number] 2020 Private Health Insurance AETNA A ETNA [facility] [id number] 2020-Present [address] [place] [address] [id number] 1998 Unknown [id number] 2.16840.1.328198.3.579. 2.1245 1998 Unknown [id number] 2.16840.1.018503.3.579. 2.1245 1998 Unknown [id number] 2.16840.1.515342.3.579. 2.1245 1998 Unknown [id number] 2.16840.1.763182.3.579. 2.1244 1998 Unknown [id number] 2.16840.1.964728.3.579. 2.1244 1998 Unknown [id number] 2.16840.1.114986.3.579. 2.1244 1998 Unknown [id number] 2.16840.1.414664.3.579. 2.1244 1998 Unknown [id number] 2.16840.1.312161.3.579. 2.479 1998 Unknown [id number] 2.16840.1.168857.3.579. 2.479 Unknown AETNA\AETNA [facility] Unknown [id number] 2.16.840.1.109248.3.579. 2.462 Unknown [id number] 2.16.840.1.112599.3.579. 2.462 Unknown [id number] 2.16.840.1.303735.3.579. 2.462 Unknown [id number] 2.16.840.1.675496.3.579. 2.462 Unknown [id number] 2.16840.1.390305.3.579. 2.462 Unknown [id number] 2.16840.1.797289.3.579. 2.462 Unknown [id number] 2.840.1.177809.3.579. 2.462 Unknown [id number] 2.840.1.341194.3.579. 2.462 Unknown [id number] 2.840.1.640994.3.579. 2.462 Unknown [id number] 2.840.1.717063.3.579. 2.462 Unknown [id number] 2.840.1.101066.3.579. 2.462 Unknown [id number] 2.840.1.458892.3.579. 2.462 Unknown [id number] 2.840.1.464958.3.579. 2.462 Unknown [id number] 2.840.1.150546.3.579. 2.462 Unknown [id number] 2.16840.1.278130.3.579. 2.462 Unknown [id number] 2.16.840.1.138836.3.579. 2.462 Unknown [id number] 2.16.840.1.700777.3.579. 2.462 Unknown [id number] 2.16.840.1.748492.3.579. 2.462 Unknown [id number] 2.16840.1.571184.3.579. 2.462 Unknown [id number] 2.16.840.1.076765.3.579. 2.462 Social History Date Type Detail Facility [facility] Tobacco smoking consumption unknown [facility] Start: 05-23-2023 End: 08-15-2024 Tobacco smoking status NHIS Never smoked tobacco [facility] Work Phone: Start: 05-23-2023 Tobacco use and exposure Smokeless tobacco non-user [facility] Work Phone: Start: 07-05-2023 End: 07-29-2024 Alcohol intake Current drinker of alcohol (finding) [facility] Work Phone: Start: 05-30-2023 End: 07-25-2024 History of Social function [facility] Work Phone: Start: 05-30-2023 End: 07-25-2024 Tobacco use panel [facility] Work Phone: Start: 05-23-2023 Tobacco Comment Never [facility] Work Phone: Start: 05-23-2023 Alcohol Comment Occasional alc hohol use. Once per month at maximum. [facility] Work Phone: Start: 2000 Sex Assigned At Not on file [facility] Work Phone: Start: 06-25-2023 End: 07-29-2024 Exposure to SARS-CoV-2 (event) Unable to assess [facility] Work Phone: Start: 07-15-2024 End: 07-25-2024 Exposure to SARS-CoV-2 (event) Not sure [facility] Start: 11-21-2024 Sex Female (finding) [facility] Start: 2000 Sex Assigned At Female [facility] Clinical Notes 07-02-2023 to 02-18-2025 Note Date & Type Note Facility 02-18-2025 Progress note [facility] 02-18-2025 Progress note Note Date/Time February 18, 2025 2:47pm [facility] [address], [address] [place] [address] OFFICE VISIT Date of Service: 02/18/25 MR#: [id number] Acct: [id number] Name: MADDIE TORRE Rep #: [id number] : 2000 Provider: Dr. Juana Solomon DO Age/Sex: 24/F [place] [facility] [place] Status: Signed Intake Vital Signs 09/23/24 13:32 02/03/25 13:42 02/18/25 14:08 02/18/25 14:09 Height 5 ft 2 in 5 ft 2 in 5 ft 2 in 5 ft 2 in Weight: 196 lb BMI 35.8 BP 113/76 Intake Visit Reasons: 33wk ob Desktop Administrator Required: No Is patient in pain?: No Allergies No Known Allergies Allergy (Verified 02/18/25 14:08) Medications ?Medication ?Instructions ?Recorded ?Confirmed ?Type ergocalciferol (vitamin D2) 1,250 1,250 mcg PO QWEEK 0 01/27/24 02/18/25 History mcg (50,000 unit) capsule (Drisdol) ondansetron 4 mg disintegrating 4 mg PO Q6H PRN nausea and 08/09/24 02/18/25 Rx tablet vomiting #30 tabs docosahexaenoic acid 200 mg mg PO 08/15/24 02/18/25 Hi story capsule ( DHA) mecobalamin (vitamin B12) 10,000 mcg IM MONTHLY 02/18/25 History mcg solution for injection ferrous sulfate 137 mg (45 mg 137 mg PO QDAY 02/03/25 02/18/25 History iron) tablet,extended release (Slow Fe) famotidine 20 mg tablet (Pepcid AC) 20 mg PO BID 02/1802/18/25 History Last Menstrual Period: 06/23/24 Zika: Zika virus screening: Negative : No PFSH PFSH Medical History Spontaneous Family History Grandmother Cancer Lung-Maternal Aunt Cancer Pancreatic- Maternal Social History adopted: No household members: spouse current occupational status: employed 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 current occupational exposures/hazards: No pets and animals: Yes ( taking care of litterbox) pets and animals: cat(s) and fish history of recent travel: No sexually active: Yes Smoking Status: Never smoker alcohol intake: current alcohol intake frequency: holidays/special occasions only details: None while substance use type: former substance user Date of last use: Age 16 experimentedand marijuana diet: other well-balanced diet: daily or most days caffeine: No eating out: 1-3 times/week during the past year weight has: remained stable what type of physical activity do you participate in: none seatbelt use: always do you feel safe at home: Yes 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 Date Name GA/Weeks Outcome Route Bth Weight Gen Labor Lgth Anesthesia Del Locatn Provider FOB 01/09/24 5 spontaneous HPI 33wk ob Details: MADDIE TORRE is a 24 year old who presents for routine OB visit. OB Visit ITZEL Calculator Estimated Delivery Date Method Current WG Current Estimate 04/06/25 Ultrasound #1 33w 2d Other Estimates 03/30/25 LMP (Certain) 34w 2d Expected Delivery Route/Plan Labor Preferences- CB/BF classes: encouraged labor support person: Otoniel labor intervention preferences: [] pain management options preferred: limited! cut cord/dad catch: yes : yes PP control planned: discussed discussed possible routes of delivery and associated risks: [] special requests: [] Specific Issue/Plans Covid status: [] Flu vaccine: [] Tdap vaccine: declined Rhogam: na LARC form signed: yes Problem list reviewed and updated with the most current plan of care details and appropriate orders placed. Relevant counseling for the gestational age provided. Continue routine care and follow up unless otherwise noted in visit notes/problem list details Initial Weight: 166 lb Date -?-?-?-?-?-?-?-?-?-?-?-?- EGA Weight BP Urine Prot -?-?-?-?-?-?-?-?-?-?-?-?- Glucose FHR FuHt Pres Dilation -?-?-?-?-?-?-?-?-?-?-?-?- Effaced St Visit Note 08/22/24 -?-?-?-?-?-?-?-?-?--?-?-?- 7w 4d 120 lb (-46 lb) 120/86 -?-?-?-?-?-?-?-?-?-?-?-?- 153 -?-?-?-?-?-?-?-?-?-?-?-?- KW- CRL cons wit h dates. declines NIPT. has US appt after today. declined pap today. 09/23/24 -?-?-?-?-?-?-?-?-?-?-?-?- 12w 1d 167 lb (+16 oz) 119/81 Negative -?-?-?-?-?-?-?-?-?-?-?-?- Negative 150 -?-?-?-?-?-?-?-?-?-?-?-?- SM- no vb crampi ng 10/22/24 -?-?-?-?-?-?-?-?-?-?-?-?- 16w 2d 172 lb 4 oz (+6 lb 4 oz) 118/74 Negative -?-?-?-?-?-?-?-?-?-?-?-?- Negative 145 -?-?-?-?-?-?-?-?-?-?-?-?- MH-No VB. No FM yet. Anatomy US 11/10. Urine GCC today 11/18/24 -?-?-?-?-?-?-?-?-?-?-?-?- 20w 1d 177 lb 2 oz (+11 lb 2 oz) 114/72 Negative -?-?-?-?-?-?-?-?-?-?-?-?- Negative 147 -?-?-?-?-?-?-?-?-?-?-?-?- MH-No VB. Nausea improved. Good FM. 12/18/24 -?-?-?-?-?-?-?-?-?-?-?-?- 24w 3d 181 lb 6 oz (+15 lb 6 oz) 112/77 Negative -?-?-?-?-?-?-?-?-?-?-?-?- Negative 145 -?-?-?-?-?-?-?-?-?-?-?-?- JV- no lof, vagi nal bleeding, or dec fm. no complaints. 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 ultrasound ordered. 01/06/25 -?-?-?-?-?-?-?-?-?-?-?-?- 27w 1d 188 lb 6 oz (+22 lb 6 oz) 131/86 Negative -?-?-?-?-?-?-?-?-?-?-?-?- Negative 150 28 -?-?-?-?-?-?-?-?-?-?-?-?- kw- no vb/lof/ct x. good fm. glucose today. tdap and larc declined 01/20/25 -?-?-?-?-?-?-?-?-?-?-?-?- 29w 1d 190 lb (+24 lb) 115/75 Negative -?-?-?-?-?-?-?-?-?-?-?-?- Negative 134 30 -?-?-?-?-?-?-?-?-?-?-?-?- LC- no vb/ctx/lo f. good fm. neg glucola. LC- no vb/ctx/lof. good fm. neg glucola. chart reviewed. MFM growth normal, due date should be 04/06/2025 based on 1st trimester us. cw SM agrees with due date change. pt informed of new due date of 04/06/2025 02/03/25 -?-?-?-?-?-?-?-?-?-?-?-?- 31w 1d 193 lb 6 oz (+27 lb 6 oz) 108/80 Negative -?-?-?-?-?-?-?-?-?-?-?-?- Negative 142 32 -?-?-?-?-?-?-?-?-?-?-?-?- MH-No Vb, LOF. G ood FM. rpt CBC today. 02/18/25 -?-?-?-?-?-?-?-?-?-?-?-?- 33w 2d 196 lb (+30 lb) 113/76 Negative -?-?-?-?-?-?-?-?-?-?-?-?- Negative 143 32 0 -?-?-?-?-?-?-?-?-?-?-?-?- JV- pt complains of cramping that is getting worse over the last couple of days. on exam there is some thick white discahrge, no odor, no fluid, or bleeding. cx closed. red top collected. collecting UA and culture. ACOG First Trimester First Trimester: Discussed Second Trimester Second Trimester: Signs and Symptoms of Labor, Selecting a care provider, Reproductive Life Planning & Contreception, Care Planning, Depression/Anxiety and Intimate Partner Violence; Discussed Tobacco Cessation Third Trimester Third Trimester: Pain Management Plans, Labor support person(s), Immediate Larc, Circumcision preference, Signs and Symptoms of Preeclampsia, Feeding No , [place] Education and Family Medical Leave or Disability Forms Results POC Urinalysis 2 Dip (Clinic) Office Urine Glucose Negative Last Edit by Angelica Santiago on 02/18/25 14: 24 Office Urine Protein Negative Last Edit by Angelica Santiago on 02/18/25 14: 24 Coding Level of Care Code OB Routine Diagnoses Anemia during in third trimester O99.013 Trimester: third trimester affected by growth restriction O36.5990 Chlamydia infection during O98.819; A74.9 Family history of hemochromatosis Z83.49 Vegetarian diet Z78.9 Obesity affecting in second trimester, unspecified obesity type O99.212 Obesity type affecting : unspecified obesity Trimester: second trimester H/O miscarriage, currently O09.299 Supervision of high risk in third trimester O09.93 Trimester: third trimester 33 weeks gestation of Z3A.33 Weeks of gestation: 33 weeks Assessment and Plan Assessment and Plan (1) Anemia in preg-unspec: Status: Acute Qualifiers: Trimester: third trimester Qualified Code(s): O99.013 - Anemia complicating , third trimester (2) affected by growth restriction: Status: Acute Comment: growth US 7%- MFM referral for fu growth scan. due date changed 04/06/25 on 01/20. (3) Chlamydia infection during : Status: Acute Comment: 08/26/24 azithromycin sent; 10/22/24 rpt culture:negative (4) Family history of hemochromatosis: Status: Acute Comment: Pt tested and is NEGATIVE (5) Vegetarian diet: Status: Acute Comment: x8 years - recently started eating some meat since (6) Obesity affecting : Status: Acute Qualifiers: Obesity type affecting : unspecified obesity Trimester: second trimester Qualified Code(s): O99.212 - Obesity complicating , second trimester Comment: BMI 30.4, HgBA1C normal (7) H/O miscarriage, currently : Status: Acute Comment: January 2024 (8) Supervision of high-risk : Status: Acute Qualifiers: Trimester: third trimester Qualified Code(s): O09.93 - Supervision of high risk , unspecified, third trimester Comment: PRR , [facility] 04/06/25, : Otoniel (9) : Status: Acute Qualifiers: Weeks of gestation: 33 weeks Qualified Code(s): Z3A.33 - 33 weeks gestation of Comment: NIPT low risk, Choroid plexus cysts. Orders: Orders POC Urinalysis 2 Dip (Clinic) Today 02/18/25 1293 <Electronically signed by María Elena Arellano DO> Date _ María Elena Solomon DO Cosigner Signature: Date (if applicable) CC: ~ [facility] Work Phone: [phone]) 629-173505-27-2025 Progress note Author [facility] Note Date/Time February 03, 2025 1:59p m [facility] [address] [place] [address], [address] [place] [address] OFFICE VISIT Date of Service: 02/03/25 MR#: [id number] Acct: [id number] Name: MADDIE TORRE Rep #: [id number] : 2000 Provider: AMEE Springer Age/Sex: 24/F [place] [facility] [place] Status: Signed Intake Vital Signs 09/23/24 13:32 01/20/25 14:36 02/03/25 13:42 Height 5 ft 2 in 5 ft 2 in 5 ft 2 in Weight: 190 lb 193 lb 6 oz BMI 34.7 35.4 BP 115/75 108/80 Intake Visit Reasons: 32 wk ob Chief Complaint: 32 Week OB Desktop Administrator Required: No Is patient in pain?: No Allergies No Known Allergies Allergy (Verified 02/03/25 13:45) Medications ?Medication ?Instructions ?Recorded ?Confirmed ?Type ergocalciferol (vitamin D2) 1,250 1,250 mcg PO QWEEK 0 01/27/24 02/03/25 History mcg (50,000 unit) capsule (Drisdol) ondansetron 4 mg disintegrating 4 mg PO Q6H PRN nausea and 08/09/24 02/03/25 Rx tablet vomiting #30 tabs docosahexaenoic acid 200 mg mg PO 08/15/24 02/03/25 Hi story capsule ( DHA) mecobalamin (vitamin B12) 10,000 mcg IM MONTHLY 02/03/25 History mcg solution for injection ferrous sulfate 137 mg (45 mg 137 mg PO QDAY 02/03/25 02/03/25 History iron) tablet,extended release (Slow Fe) Last Menstrual Period: 06/23/24 Zika: Zika virus screening: Negative : No PFSH PFSH Medical History Spontaneous Family History Grandmother Cancer Lung-Maternal Aunt Cancer Pancreatic- Maternal Social History adopted: No household members: spouse current occupational status: employed 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 current occupational exposures/hazards: No pets and animals: Yes ( taking care of litterbox) pets and animals: cat(s) and fish history of recent travel: No sexually active: Yes Smoking Status: Never smoker alcohol intake: current alcohol intake frequency: holidays/special occasions only details: None while substance use type: former substance user Date of last use: Age 16 experimentedand marijuana diet: other well-balanced diet: daily or most days caffeine: No eating out: 1-3 times/week during the past year weight has: remained stable what type of physical activity do you participate in: none seatbelt use: always do you feel safe at home: Yes 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 Date Name GA/Weeks Outcome Route Bth Weight Gen Labor Lgth Anesthesia Del Locatn Provider FOB 01/09/24 5 spontaneous HPI 32 wk ob Details: MADDIE TORRE is a 24 year old who presents for routine OB visit. OB Visit ITZEL Calculator Estimated Delivery Date Method Current WG Current Estimate 04/06/25 Ultrasound #1 31w 1d Other Estimates 03/30/25 LMP (Certain) 32w 1d Expected Delivery Route/Plan Labor Preferences- CB/BF classes: encouraged labor support person: Otoniel labor intervention preferences: [] pain management options preferred: limited! cut cord/dad catch: yes : yes PP control planned: discussed discussed possible routes of delivery and associated risks: [] special requests: [] Specific Issue/Plans Covid status: [] Flu vaccine: [] Tdap vaccine: declined Rhogam: na LARC form signed: yes Problem list reviewed and updated with the most current plan of care details and appropriate orders placed. Relevant counseling for the gestational age provided. Continue routine care and follow up unless otherwise noted in visit notes/problem list details Initial Weight: 166 lb Date -?-?-?-?-?-?-?-?-?-?-?-?- EGA Weight BP Urine Prot -?-?-?-?-?-?-?--?-?-?-?-?- Glucose FHR FuHt Pres Dilation -?-?-?-?-?-?-?-?-?-?-?-?- Effaced St Visit Note 08/22/24 -?-?-?-?-?-?-?-?-?-?-?-?- 7w 4d 120 lb (-46 lb) 120/86 -?-?-?-?-?-?-?-?-?-?-?-?- 153 -?-?-?-?-?-?-?-?-?-?-?-?- KW- CRL cons wit h dates. declines NIPT. has US appt after today. declined pap today. 09/23/24 -?-?-?-?-?-?-?-?-?-?-?-?- 12w 1d 167 lb (+16 oz) 119/81 Negative -?-?-?-?-?-?-?-?-?-?-?-?- Negative 150 -?-?-?-?-?-?-?-?-?-?-?-?- SM- no vb crampi ng 10/22/24 -?-?-?-?-?-?-?-?-?-?-?-?- 16w 2d 172 lb 4 oz (+6 lb 4 oz) 118/74 Negative -?-?-?-?-?-?-?-?-?-?-?-?- Negative 145 -?-?-?-?-?-?-?-?-?-?-?-?- MH-No VB. No FM yet. Anatomy US 11/10. Urine GCC today 11/18/24 -?-?-?-?-?-?-?-?-?-?-?-?- 20w 1d 177 lb 2 oz (+11 lb 2 oz) 114/72 Negative -?-?-?-?-?-?-?-?-?-?-?-?- Negative 147 -?-?-?-?-?--?-?-?-?-?-?-?- MH-No VB. Nausea improved. Good FM. 12/18/24 -?-?-?-?-?-?-?-?-?-?-?-?- 24w 3d 181 lb 6 oz (+15 lb 6 oz) 112/77 Negative -?-?-?-?-?-?-?-?-?-?-?-?- Negative 145 -?-?-?-?-?-?-?-?-?-?-?-?- JV- no lof, vagi nal bleeding, or dec fm. no complaints. 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 ultrasound ordered. 01/06/25 -?-?-?-?-?-?-?-?-?-?-?-?- 27w 1d 188 lb 6 oz (+22 lb 6 oz) 131/86 Negative -?-?-?-?-?-?-?-?-?-?-?-?- Negative 150 28 -?-?-?-?-?-?-?-?-?-?-?-?- kw- no vb/lof/ct x. good fm. glucose today. tdap and larc declined 01/20/25 -?-?-?-?-?-?-?-?-?-?-?-?- 29w 1d 190 lb (+24 lb) 115/75 Negative -?-?-?-?-?-?-?-?-?-?-?-?- Negative 134 30 -?-?-?-?-?-?-?-?-?-?-?-?- LC- no vb/ctx/lo f. good fm. neg glucola. LC- no vb/ctx/lof. good fm. neg glucola. chart reviewed. MFM growth normal, due date should be 04/06/2025 based on 1st trimester us. cw SM agrees with due date change. pt informed of new due date of 04/06/2025 02/03/25 -?-?-?-?-?-?-?-?-?-?-?-?- 31w 1d 193 lb 6 oz (+27 lb 6 oz) 108/80 -?-?-?-?-?-?-?-?-?-?-?-?- 142 32 -?-?-?-?-?-?-?-?-?-?-?-?- MH-No Vb, XANDERF. G ood FM. rpt CBC today. ACOG First Trimester First Trimester: Discussed Second Trimester Second Trimester: Signs and Symptoms of Labor, Selecting a care provider, Reproductive Life Planning & Contreception, Care Planning, Depression/Anxiety and Intimate Partner Violence; Discussed Tobacco Cessation Third Trimester Third Trimester: Pain Management Plans, Labor support person(s), Immediate Larc, Circumcision preference Yes No, Signs and Symptoms of Preeclampsia, Feeding No , Education and Family Medical Leave or Disability Forms ROS Const Reports system reviewed and no additional complaints, except as documented GI Denies abdominal pain, Denies nausea and Denies vomiting Exam Const General: cooperative Nutritional Appearance: well nourished GI Palpation: soft, nontender and other (gravid) Coding Level of Care Code OB Routine Diagnoses Supervision of high risk in third trimester O09.93 Trimester: third trimester 31 weeks gestation of Z3A.31 Weeks of gestation: 31 weeks H/O miscarriage, currently O09.299 Obesity affecting in second trimester, unspecified obesity type O99.212 Obesity type affecting : unspecified obesity Trimester: second trimester Vegetarian diet Z78.9 Family history of hemochromatosis Z83.49 Chlamydia infection during O98.819; A74.9 affected by growth restriction O36.5990 Anemia during in third trimester O99.013 Trimester: third trimester Assessment and Plan Assessment and Plan (1) Supervision of high-risk : Status: Acute Qualifiers: Trimester: third trimester Qualified Code(s): O09.93 - Supervision of high risk , unspecified, third trimester Comment: PRR , ITZEL 04/06/25, : Otoniel (2) : Status: Acute Qualifiers: Weeks of gestation: 31 weeks Qualified Code(s): Z3A.31 - 31 weeks gestation of Comment: NIPT low risk, Choroid plexus cysts. (3) H/O miscarriage, currently : Status: Acute Comment: January 2024 (4) Obesity affecting : Status: Acute Qualifiers: Obesity type affecting : unspecified obesity Trimester: second trimester Qualified Code(s): O99.212 - Obesity complicating , second trimester Comment: BMI 30.4, HgBA1C normal (5) Vegetarian diet: Status: Acute Comment: x8 years - recently started eating some meat since (6) Family history of hemochromatosis: Status: Acute Comment: Pt tested and is NEGATIVE (7) Chlamydia infection during : Status: Acute Comment: 08/26/24 azithromycin sent; 10/22/24 rpt culture:negative (8) affected by growth restriction: Status: Acute Comment: growth US 7%- MFM referral for fu growth scan. due date changed 04/06/25 on 01/20. (9) Anemia in preg-unspec: Status: Acute Qualifiers: Trimester: third trimester Qualified Code(s): O99.013 - Anemia complicating , third trimester Orders: Orders POC Urinalysis 2 Dip (Clinic) Today CBC W/Diff, Automated Today D64.9 - Anemia, unspecified Plan problem list reviewed and updated for most current plan of care and appropriate orders placed. Relevant counseling for the gestational age appropriate provided and ACOG education checklist updated. Continue routine care and follow up. 02/03/25 9082 <Electronically signed by Chioma LUBIN> Date _ Chioma LUBIN Cosfabiola Signature: Date (if applicable) CC: ~ [facility] Work Phone: [phone] [facility] [address] [place] [address], [address] [place] [address] OFFICE VISIT Date of Service: 02/03/25 MR#: [id number] Acct: [id number] Name: MADDIE TORRE Rep #: [id number] : 2000 Provider: AMEE Springer Age/Sex: 24/F Location: [facility] Status: Signed Intake Vital Signs 09/23/24 13:32 01/20/25 14:36 02/03/25 13:42 Height 5 ft 2 in 5 ft 2 in 5 ft 2 in Weight: 190 lb 193 lb 6 oz BMI 34.7 35.4 BP 115/75 108/80 Intake Visit Reasons: 32 wk ob Chief Complaint: 32 Week OB Desktop Administrator Required: No Is patient in pain?: No Allergies No Known Allergies Allergy (Verified 02/03/25 13:45) Medications ?Medication ?Instructions ?Recorded ?Confirmed ?Type ergocalciferol (vitamin D2) 1,250 1,250 mcg PO QWEEK 0 01/27/24 02/03/25 History mcg (50,000 unit) capsule (Drisdol) ondansetron 4 mg disintegrating 4 mg PO Q6H PRN nausea and 08/09/24 02/03/25 Rx tablet vomiting #30 tabs docosahexaenoic acid 200 mg mg PO 08/15/24 02/03/25 Hi story capsule ( DHA) mecobalamin (vitamin B12) 10,000 mcg IM MONTHLY 02/03/25 History mcg solution for injection ferrous sulfate 137 mg (45 mg 137 mg PO QDAY 02/03/25 02/03/25 History iron) tablet,extended release (Slow Fe) Last Menstrual Period: 06/23/24 Zika: Zika virus screening: Negative : No PFSH PFSH Medical History Spontaneous Family History Grandmother Cancer Lung-Maternal Aunt Cancer Pancreatic- Maternal Social History adopted: No household members: spouse current occupational status: employed 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 current occupational exposures/hazards: No pets and animals: Yes ( taking care of litterbox) pets and animals: cat(s) and fish history of recent travel: No sexually active: Yes Smoking Status: Never smoker alcohol intake: current alcohol intake frequency: holidays/special occasions only details: None while substance use type: former substance user Date of last use: Age 16 experimentedand marijuana diet: other well-balanced diet: daily or most days caffeine: No eating out: 1-3 times/week during the past year weight has: remained stable what type of physical activity do you participate in: none seatbelt use: always do you feel safe at home: Yes 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 Date Name GA/Weeks Outcome Route Bth Weight Gen Labor Lgth Anesthesia Del Locatn Provider FOB 01/09/24 5 spontaneous HPI 32 wk ob Details: MADDIE TORRE is a 24 year old who presents for routine OB visit. OB Visit ITZEL Calculator Estimated Delivery Date Method Current WG Current Estimate 04/06/25 Ultrasound #1 31w 1d Other Estimates 03/30/25 LMP (Certain) 32w 1d Expected Delivery Route/Plan Labor Preferences- CB/BF classes: encouraged labor support person: Otoniel labor intervention preferences: [] pain management options preferred: limited! cut cord/dad catch: yes : yes PP control planned: discussed discussed possible routes of delivery and associated risks: [] special requests: [] Specific Issue/Plans Covid status: [] Flu vaccine: [] Tdap vaccine: declined Rhogam: na LARC form signed: yes Problem list reviewed and updated with the most current plan of care details and appropriate ordersplaced. Relevant counseling for the gestational age provided. Continue routine care and follow up unless otherwise noted in visit notes/problem list details Initial Weight: 166 lb Date -?-?-?-?-?-?-?-?-?-?-?-?- EGA Weight BP Urine Prot -?-?-?-?-?-?-?--?-?-?-?-?- Glucose FHR FuHt Pres Dilation -?-?-?-?-?-?-?-?-?-?-?-?- Effaced St Visit Note 08/22/24 -?-?-?-?-?-?-?-?-?-?-?-?- 7w 4d 120 lb (-46 lb) 120/86 -?-?-?-?-?-?-?-?-?-?-?-?- 153 -?-?-?-?-?-?-?-?-?-?-?-?- KW- CRL cons wit h dates. declines NIPT. has US appt after today. declined pap today. 09/23/24 -?-?-?-?-?-?-?-?-?-?-?-?- 12w 1d 167 lb (+16 oz) 119/81 Negative -?-?-?-?-?-?-?-?-?-?-?-?- Negative 150 -?-?-?-?-?-?-?-?-?-?-?-?- SM- no vb crampi ng 10/22/24 -?-?-?-?-?-?-?-?-?-?-?-?- 16w 2d 172 lb 4 oz (+6 lb 4 oz) 118/74 Negative -?-?-?-?-?-?-?-?-?-?-?-?- Negative 145 -?-?-?-?-?-?-?-?-?-?-?-?- MH-No VB. No FM yet. Anatomy US 3/3. Urine GCC today 11/18/24 -?-?-?-?-?-?-?-?-?-?-?-?- 20w 1d 177 lb 2 oz (+11 lb 2 oz) 114/72 Negative -?-?-?-?-?-?-?-?-?-?-?-?- Negative 147 -?-?-?-?-?--?-?-?-?-?-?-?- MH-No VB. Nausea improved. Good FM. 12/18/24 -?-?-?-?-?-?-?-?-?-?-?-?- 24w 3d 181 lb 6 oz (+15 lb 6 oz) 112/77 Negative -?-?-?-?-?-?-?-?-?-?-?-?- Negative 145 -?-?-?-?-?-?-?-?-?-?-?-?- JV- no lof, vagi nal bleeding, or dec fm. no complaints. 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 ultrasound ordered. 01/06/25 -?-?-?-?-?-?-?-?-?-?-?-?- 27w 1d 188 lb 6 oz (+22 lb 6 oz) 131/86 Negative -?-?-?-?-?-?-?-?-?-?-?-?- Negative 150 28 -?-?-?-?-?-?-?-?-?-?-?-?- kw- no vb/lof/ct x. good fm. glucose today. tdap and larc declined 01/20/25 -?-?-?-?-?-?-?-?-?-?-?-?- 29w 1d 190 lb (+24 lb) 115/75 Negative -?-?-?-?-?-?-?-?-?-?-?-?- Negative 134 30 -?-?-?-?-?-?-?-?-?-?-?-?- LC- no vb/ctx/lo f. good fm. neg glucola. LC- no vb/ctx/lof. good fm. neg glucola. chart reviewed. MFM growth normal, due date should be 04/06/2025 based on 1st trimester us. cw SM agrees with due date change. pt informed of new due date of 04/06/2025 02/03/25 -?-?-?-?-?-?-?-?-?-?-?-?- 31w 1d 193 lb 6 oz (+27 lb 6 oz) 108/80 -?-?-?-?-?-?-?-?-?-?-?-?- 142 32 -?-?-?-?-?-?-?-?-?-?-?-?- MH-No Vb, LOF. G ood FM. rpt CBC today. ACOG First Trimester First Trimester: Discussed Second Trimester Second Trimester: Signs and Symptoms of Labor, Selecting a care provider, Reproductive Life Planning & Contreception, Care Planning, Depression/Anxiety and Intimate Partner Violence; Discussed Tobacco Cessation Third Trimester Third Trimester: Pain Management Plans, Labor support person(s), Immediate Larc, Circumcision preference Yes No, Signs and Symptoms of Preeclampsia, Feeding No , Education and Family Medical Leave or Disability Forms ROS Const Reports system reviewed and no additional complaints, except as documented GI Denies abdominal pain, Denies nausea and Denies vomiting Exam Const General: cooperative Nutritional Appearance: well nourished GI Palpation: soft, nontender and other (gravid) Coding Level of Care Code OB Routine Diagnoses Supervision of high risk in third trimester O09.93 Trimester: third trimester 31 weeks gestation of Z3A.31 Weeks of gestation: 31 weeks H/O miscarriage, currently O09.299 Obesity affecting in second trimester, unspecified obesity type O99.212 Obesity type affecting : unspecified obesity Trimester: second trimester Vegetarian diet Z78.9 Family history of hemochromatosis Z83.49 Chlamydia infection during O98.819; A74.9 affected by growth restriction O36.5990 Anemia during in third trimester O99.013 Trimester: third trimester Assessment and Plan Assessment and Plan (1) Supervision of high-risk : Status: Acute Qualifiers: Trimester: third trimester Qualified Code(s): O09.93 - Supervision of high risk , unspecified, third trimester Comment: PRR , ITZEL 04/06/25, : Otoniel (2) : Status: Acute Qualifiers: Weeks of gestation: 31 weeks Qualified Code(s): Z3A.31 - 31 weeks gestation of Comment: NIPT low risk, Choroid plexus cysts. (3) H/O miscarriage, currently : Status: Acute Comment: January 2024 (4) Obesity affecting : Status: Acute Qualifiers: Obesity type affecting : unspecified obesity Trimester: second trimester Qualified Code(s): O99.212 - Obesity complicating , second trimester Comment: BMI 30.4, HgBA1C normal (5) Vegetarian diet: Status: Acute Comment: x8 years - recently started eating some meat since (6) Family history of hemochromatosis: Status: Acute Comment: Pt tested and is NEGATIVE (7) Chlamydia infection during : Status: Acute Comment: 08/26/24 azithromycin sent; 10/22/24 rpt culture:negative (8) affected by growth restriction: Status: Acute Comment: growth US 7%- MFM referral for fu growth scan. due date changed 04/06/25 on 01/20. (9) Anemia in preg-unspec: Status: Acute Qualifiers: Trimester: third trimester Qualified Code(s): O99.013 - Anemia complicating , third trimester Orders: Orders POC Urinalysis 2 Dip (Clinic) Today CBC W/Diff, Automated Today D64.9 - Anemia, unspecified Plan problem list reviewed and updated for most current plan of care and appropriate orders placed. Relevant counseling for the gestational age appropriate provided and ACOG education checklist updated. Continue routine care and follow up. 02/03/25 1359 s CONCRETE BATCHING PLANT OPERATOR CONCRETE BATCHING PLANT OPERATOR-C> Date _ Chioma Springer CONCRETE BATCHING PLANT OPERATOR CONCRETE BATCHING PLANT OPERATOR-C Cosigner Signature: Date (if applicable) CC: ~ [facility]05-06-2025 [facility] CONSULTATION Referring Provider María Elena Croft, [address] [address] SUBJECTIVE Maddie Torre is a 24 y.o. who presents at 28w1d for discussion of IUGR. She presents with and is without other complaints. She otherwise denies LOF/CTX/VB. She is without preE complaints. She endorses movement We performed a detailed ROS including screening for general, gastrointestinal, respiratory, cardiac, renal, urological symptoms and the patient has no pertinent positives on screen. OB History Para Term AB Living 2 1 SAB IAB Ectopic Multiple Live Births 1 # Outcome Date GA Lbr Yan/2nd Weight Sex Type Anes PTL Lv 2 Current 1 SAB 01/2024 SAB Problem List[1] Past Medical History: Diagnosis Date Obesity History reviewed. No pertinent surgical history. Current Medications[2] Allergies[3] Social History Socioeconomic History Marital status: Spouse name: Not on file Number of children: Not on file Years of education: Not on file Highest education level: Not on file Occupational History Not on file Tobacco Use Smoking status: Never Smokeless tobacco: Never Substance and Sexual Activity Alcohol use: Not Currently Drug use: Never Sexual activity: Not on file Other Topics Concern Not on file Social History Narrative Not on file Social Drivers of Health Food Insecurity: Not on file Transportation Needs: Not on file Housing Stability: Not on file Family History Problem Relation Age of Onset Other (Other) Maternal Grandfather OBJECTIVE BP 120/87 Pulse 96 Resp 18 Ht 157.5 cm Wt 84.4 kg (186 lb) LMP 06/23/2024 SpO2 100% BMI 34.02 kg/m Alert and oriented, NAD, comfortable appearing. Normal respiratory effort Abdomen: Gravid and non-tender during ultrasound exam. OB Imaging: Please see detailed ultrasound report. Laboratory Studies reviewed in EPIC. Medical Discussion: Ultrasound results reviewed. The limitation of ultrasound in the diagnosis of all congenital anomalies and genetic syndromes was discussed. Ultrasound is not diagnostic for aneuploidy and will not detect all structural abnormalities, even if multiple exams are performed during a given . Normal ultrasound findings do not guarantee normal outcomes. We discussed the reassuring finding of no IUGR on today's exam. The patient's questions and concerns have been addressed and she was counseled regarding subsequent recommendations and evaluation. ASSESSMENT AND RECOMMENDATIONS Impressions: ITZEL should be 04/06/25 based on CRL measurement of 7.4 weeks on ultrasound performed on 08/22/24. No evidence of IUGR on today's exam. According to ACOG guidelines, redating based on ultrasound is supported if there is a discrepancy between LMP and ultrasound more than the following days: 8.6 weeks or less: More than 5 days 9.0 weeks to 15.6 weeks: More than 7 days. 16.0 weeks to 21.6 weeks: More than 10 days 22.0 weeks to 27.6 weeks: More than 14 days 28.0 weeks and beyond: More than 21 days Normal appearing anatomy on today s exam. Limited views of anatomy secondary to position. Normal amniotic fluid. Normal placentation. Normal appearing cervix/adnexa. Pre- BMI, 34. Recommendations: Follow up as clinically indicated. Please reconsult MFM if you have any additional questions/concerns or would like [facility] to perform future ultrasound exams/ testing. Thank you for allowing me to participate in the care of your patient. Please do not hesitate to contact me if you have any questions or concerns. If findings at delivery differ from our evaluation, please provide us with follow-up for director of quality control. The data contained in the above ultrasound report/consultation along with subsequent clinical management of the patient are the responsibility of the ordering provider. Sincerely, Stella Weaver MD, FACOG Maternal Medicine Fpga Design Engineer The total time for today's visit is 45 minutes in which I spent time in reviewing the medical records, counseling, charting, and coordinating care. [1] There is no problem list on file for this patient. [2] Current Outpatient Medications: MV-Min-Fe Fum-FA-DHA ( 1 PO), Take by mouth, Disp: , Rfl: Ferrous Sulfate ER 45 MG TBCR CR tablet, Take by mouth Do not crush, swallow whole., Disp: , Rfl: ondansetron (ZOFRAN) 4 MG tablet, Take 1 Tablet (4 mg) by mouth every 8 hours as needed for Nausea, Disp: , Rfl: [3] [facility] Diagnostic study note [facility] Imaging Services [address], [place] [id number] OB Limited With Biometrics MR#: [id number] Acct: [id number] Name: MADDIE TORRE Rep #: [id number] : 2000 F 24 From: Erlin Francis MD PCP: 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 Standard views obtained, including biometry, anatomy survey, and Doppler studies. FINDINGS Transabdominal imaging Single live intrauterine with cardiac activity 143 beats per minute. Presentation breech. Cervix not visualized. EDITH 15.4 cm, maximum vertical pocket 4.0 cm Anterior right lateral placenta appears within limits, not low-lying, grade 2 DIMENSIONS: Biparietal Diameter: 6.8 cm/27 weeks 2 days, 9% Head Circumference: 25.5 cm/27 weeks 5 days, 6% Abdominal Circumference: 23.3 cm/27 weeks 5 days, 21% Femur Length: 4.8 cm/26 weeks 1 day, 1.4% FL/HC 21%, FL/BPD 71%, FL/HC 19%, CI 75%, HC/AC 1.1 ESTIMATED WEIGHT: 1034 g +/-155 g ESTIMATED WEIGHT PERCENTILE (24+ weeks): 7.2% Estimated age by current ultrasound 27 weeks 2 days, ITZEL 04/07/2025 age by prior ultrasound 27 weeks 2 days, ITZEL 04/07/2025 age by LMP 28 weeks 3 days, ITZEL 03/30/2025 On the current ultrasound there is no evidence of cystic area identified at the choroid plexus. US/OB Limited With Biometrics IMPRESSION: Single live intrauterine with biometry as above. Femur Length: 4.8 cm/26 weeks 1 day, 1.4% ESTIMATED WEIGHT: 1034 g +/-155 g ESTIMATED WEIGHT PERCENTILE (24+ weeks): 7.2% Reading Location: [id number] CC: AMEE Flower; Dr. María Elena Solomon DO ~ Retail Cashier: Signed [facility]03-03-2025 Radiology Diagnostic study note [facility] Imaging Services [address] [place] [id number] OB Anatomy w/ Transvaginal MR#: [id number] Acct: [id number] Name: MADDIE TORRE Rep #: [id number] : 2000 F 24 From: Sanjiv Montero MD PCP: AMEE Quinteros Status: REG CLI Study:OB Anatomy w/ Transvaginal Date of Exam : 11/10/24 Exam# [id number] Ordering Dr: Radha Neal MD PROCEDURE: OB ANATOMY W/ TRANSVAGINAL REASON FOR EXAM: Anatomy scan. COMPARISON: Comparison is made with prior study dated August 22, 2024. FINDINGS Number: 1 Position: Breech Placental Position: Anterior and right lateral. No evidence of low-lying placenta. Placental Abnormalities: None. DIMENSIONS: Biparietal Diameter: 4.35 cm: 19 weeks and 1 day: 17 percentile/ Head Circumference: 15.9 cm: 18 weeks and 5 days: 4th percentile/ Abdominal Circumference: 13.95 cm: 19 weeks and 2 days: 24 percentile/ Femur Length: 2.75 cm: 18 weeks and 3 days: 4th percentile/ ESTIMATED WEIGHT: 266 g plus/-40 g ESTIMATED WEIGHT PERCENTILE (24+ weeks): ESTIMATED GESTATIONAL AGE: Baseline: 20 weeks and 0 days By Ultrasound: 18 weeks and 6 days ESTIMATED DATE OF DELIVERY: Baseline: March 30, 2025 By Ultrasound: April 07, 2025 BIOPHYSICAL ASSESSMENT: Amniotic Fluid Volume: Subjectively normal. Amniotic Fluid Index: Within normal limits (8-24 cm normal range) Cardiac Motion: 144 beats per minute (average) Trunk and Limb Motion: Present. MATERNAL ANATOMY: Adnexa: Neither maternal ovary is successfully identified. Cervical Length (if measured): ANATOMY: Spine: Unremarkable. Cranium: Unremarkable. Cerebellum: Unremarkable. Cisterna Magna: Unremarkable. Cavum Septum Pellucidi: Present. Lateral Ventricles: Unremarkable. Choroid Plexus: Tiny cysts are seen within the choroid plexus bilaterally. Midline Falx: Present. Nuchal Fold: Upper Lip: Grossly intact. Heart: Normal four-chamber view. Ventricular Outflow Tracts: Unremarkable. Stomach: Unremarkable. Kidneys: Unremarkable. Bladder: Midline. Umbilical Cord: Three vessel cord. Normal and placental insertions. Extremities: Unremarkable. US/OB Anatomy w/ Transvaginal IMPRESSION: Single live intrauterine gestation with a mean gestational age of 19 weeks and 2days. The measurements obtained today fall with the normal expected range. Small cysts in both choroid plexus. Reading Location: [facility] CC: AMEE Flower; Dr. Radha Peters MD ~ Retail Cashier: Signed [facility]02-12-2025 Evaluation note* Diagnosis Onset Date Resolution Status Admit Date Chlamydia infection during acute October 22 2:09pm Family history of hemochromatosis acute October 22 2:09pm H/O miscarriage, currently acute October 22, 2 025 2:09pm Obesity affecting acute October 22, 2024 2:09pm acute October 22, 2024 2:09pm Supervision of high-risk acute October 22, 025 2:09pm Vegetarian diet acute October 22, 2024 2:09pm Chlamydia infection during acute November 18, 2024 3:36pm Family history of hemochromatosis acute November 18, 2024 3:36pm H/O miscarriage, currently acute November 18, 2024 3:36pm Obesity affecting acute November 18, 2024 3:36pm acute November 18 3:36pm Supervision of high-risk acute November 18, 2024 3:36pm Vegetarian diet acute November 3:36pm Chlamydia infection during acute December 18, 2024 1:58pm Family history of hemochromatosis acute December 18, 2024 1:58pm H/O miscarriage, currently acute December 18, 2024 1:58pm Obesity affecting acute December 18, 2024 1:58pm acute December 18 1:58pm Supervision of high-risk acute December 18, 2024 1:58pm Vegetarian diet acute December 1:58pm Choroid plexus cyst of fetus in heredia resolved December 18, 2024 1:58pm Chlamydia infection during acute January 06, 2025 12:36pm Family history of hemochromatosis acute January 06, 2025 12:36pm H/O miscarriage, currently acute January 06, 2025 12:36pm Obesity affecting acute January 06, 2025 12:36pm acute January 06 12:36pm Supervision of high-risk acute January 06, 2025 12:36pm Vegetarian diet acute December 12:36pm Choroid plexus cyst of fetus in heredia resolved January 06, 2025 12:36pm Chlamydia infection during acute January 20, 2025 2 :23pm Family history of hemochromatosis acute January 20, 2025 2 :23pm H/O miscarriage, currently acute January 20, 2025 2 :23pm Obesity affecting acute January 20, 2025 2:23pm acute January 20, 2025 2:23pm affected by growth restriction acute January 20 2:23pm Supervision of high-risk acute January 20, 2025 2 :23pm Vegetarian diet acute January 20, 2025 2:23pm Anemia in preg-unspec acute February 03, 2025 1:38pm Chlamydia infection during acute February 03, 2025 1 :38pm Family history of hemochromatosis acute February 03, 2025 1 :38pm H/O miscarriage, currently acute February 03, 2025 1 :38pm Obesity affecting acute February 03, 2025 1:38pm acute February 03, 2025 1:38pm affected by growth restriction acute February 03 1:38pm Supervision of high-risk acute February 03, 2025 1 :38pm Vegetarian diet acute February 03, 2025 1:38pm [facility] Work Phone: 1(922) 240-896502-12-2025 Evaluation note* Diagnosis Onset Date Resolution Status Admit Date Chlamydia infection during acute October 22, 2 025 2:09pm Family history of hemochromatosis acute October 22, 2 025 2:09pm H/O miscarriage, currently acute October 22, 2 025 2:09pm Obesity affecting acute October 22, 2024 2:09pm acute October 22, 2024 2:09pm Supervision of high-risk acute October 22, 2 025 2:09pm Vegetarian diet acute October 22, 2024 2:09pm Chlamydia infection during acute November 18, 2024 3:36pm Family history of hemochromatosis acute November 18, 2024 3:36pm H/O miscarriage, currently acute November 18, 2024 3:36pm Obesity affecting acute November 18, 2024 3:36pm acute November 18 3:36pm Supervision of high-risk acute November 18, 2024 3:36pm Vegetarian diet acute November 3:36pm Chlamydia infection during acute December 18, 2024 1:58pm Family history of hemochromatosis acute December 18, 2024 1:58pm H/O miscarriage, currently acute December 18, 2024 1:58pm Obesity affecting acute December 18, 2024 1:58pm acute December 18 1:58pm Supervision of high-risk acute December 18, 2024 1:58pm Vegetarian diet acute December 1:58pm Choroid plexus cyst of fetus in heredia resolved December 18, 2024 1:58pm Chlamydia infection during acute January 06, 2025 12:36pm Family history of hemochromatosis acute January 06, 2025 12:36pm H/O miscarriage, currently acute January 06, 2025 12:36pm Obesity affecting acute January 06, 2025 12:36pm acute January 06 12:36pm Supervision of high-risk acute January 06, 2025 12:36pm Vegetarian diet acute December 12:36pm Choroid plexus cyst of fetus in heredia resolved January 06, 2025 12:36pm Chlamydia infection during acute January 20, 2025 2 :23pm Family history of hemochromatosis acute January 20, 2025 2 :23pm H/O miscarriage, currently acute January 20, 2025 2 :23pm Obesity affecting acute January 20, 2025 2:23pm acute January 20, 2025 2:23pm affected by growth restriction acute January 20 2:23pm Supervision of high-risk acute January 20, 2025 2 :23pm Vegetarian diet acute January 20, 2025 2:23pm Anemia in preg-unspec acute February 03, 2025 1:38pm Chlamydia infection during acute February 03, 2025 1 :38pm Family history of hemochromatosis acute February 03, 2025 1 :38pm H/O miscarriage, currently acute February 03, 2025 1 :38pm Obesity affecting acute February 03, 2025 1:38pm acute February 03, 2025 1:38pm affected by growth restriction acute February 03 1:38pm Supervision of high-risk acute February 03, 2025 1 :38pm Vegetarian diet acute February 03, 2025 1:38pm Anemia in preg-unspec acute Feb 2:01pm Chlamydia infection during acute February 18, 2025 2:01pm Family history of hemochromatosis acute February 18, 2025 2:01pm H/O miscarriage, currently acute February 18, 2025 2:01pm Obesity affecting acute February 18, 2025 2:01pm acute February 18 2:01pm affected by growth restriction acute February 18 2:01pm Supervision of high-risk acute February 18, 2025 2:01pm Vegetarian diet acute February 2:01pm [facility] Work Phone: 1([phone]) 473-623101-14-2025 Evaluation note* Diagnosis Onset Date Resolution Status Admit Date Chlamydia infection during acute September 23 1:26pm Family history of hemochromatosis acute September 23 1:26pm H/O miscarriage, currently acute September 23 1:26pm Obesity affecting acute September 23, 2024 1:26pm acute September 23, 2024 1:26pm Supervision of high-risk acute September 23 1:26pm Vegetarian diet acute September 102024 1:26pm Threatened resolved Janua 2024 1:26pm Chlamydia infection during acute October 22, 2 025 2:09pm Family history of hemochromatosis acute October 22, 2 025 2:09pm H/O miscarriage, currently acute October 22, 2 025 2:09pm Obesity affecting acute October 22, 2024 2:09pm acute October 22, 2024 2:09pm Supervision of high-risk acute October 22, 2 025 2:09pm Vegetarian diet acute October 22, 2024 2:09pm Chlamydia infection during acute November 18, 2024 3:36pm Family history of hemochromatosis acute November 18, 2024 3:36pm H/O miscarriage, currently acute November 18, 2024 3:36pm Obesity affecting acute November 18, 2024 3:36pm acute November 18 3:36pm Supervision of high-risk acute November 18, 2024 3:36pm Vegetarian diet acute November 3:36pm Chlamydia infection during acute December 18, 2024 1:58pm Choroid plexus cyst of fetus in heredia acute December 18, 2024 1:58pm Family history of hemochromatosis acute December 18, 2024 1:58pm H/O miscarriage, currently acute December 18, 2024 1:58pm Obesity affecting acute December 18, 2024 1:58pm acute December 18 1:58pm Supervision of high-risk acute December 18, 2024 1:58pm Vegetarian diet acute December 1:58pm Chlamydia infection during acute January 06, 2025 12:36pm Choroid plexus cyst of fetus in heredia acute January 06, 2025 12:36pm Family history of hemochromatosis acute January 06, 2025 12:36pm H/O miscarriage, currently acute January 06, 2025 12:36pm Obesity affecting acute January 06, 2025 12:36pm acute January 06 12:36pm Supervision of high-risk acute January 06, 2025 12:36pm Vegetarian diet acute December 12:36pm [facility] Work Phone: 1(271) 436-850401-14-2025 Evaluation note* Diagnosis Onset Date Resolution Status Admit Date Chlamydia infection during acute September 23 1:26pm Family history of hemochromatosis acute September 23 1:26pm H/O miscarriage, currently acute September 23 1:26pm Obesity affecting acute September 23, 2024 1:26pm acute September 23, 2024 1:26pm Supervision of high-risk acute September 23 1:26pm Vegetarian diet acute September 102024 1:26pm Threatened resolved Janua 2024 1:26pm Chlamydia infection during acute October 22, 2 025 2:09pm Family history of hemochromatosis acute October 22, 2 025 2:09pm H/O miscarriage, currently acute October 22, 2 025 2:09pm Obesity affecting acute October 22, 2024 2:09pm acute October 22, 2024 2:09pm Supervision of high-risk acute October 22, 2 025 2:09pm Vegetarian diet acute October 22, 2024 2:09pm Chlamydia infection during acute November 18, 2024 3:36pm Family history of hemochromatosis acute November 18, 2024 3:36pm H/O miscarriage, currently acute November 18, 2024 3:36pm Obesity affecting acute November 18, 2024 3:36pm acute November 18 3:36pm Supervision of high-risk acute November 18, 2024 3:36pm Vegetarian diet acute November 3:36pm Chlamydia infection during acute December 18, 2024 1:58pm Choroid plexus cyst of fetus in heredia acute December 18, 2024 1:58pm Family history of hemochromatosis acute December 18, 2024 1:58pm H/O miscarriage, currently acute December 18, 2024 1:58pm Obesity affecting acute December 18, 2024 1:58pm acute December 18 1:58pm Supervision of high-risk acute December 18, 2024 1:58pm Vegetarian diet acute December 1:58pm Chlamydia infection during acute January 06, 2025 12:36pm Choroid plexus cyst of fetus in heredia acute January 06, 2025 12:36pm Family history of hemochromatosis acute January 06, 2025 12:36pm H/O miscarriage, currently acute January 06, 2025 12:36pm Obesity affecting acute January 06, 2025 12:36pm acute January 06 12:36pm Supervision of high-risk acute January 06, 2025 12:36pm Vegetarian diet acute December 12:36pm Chlamydia infection during acute January 20, 2025 2 :23pm Choroid plexus cyst of fetus in heredia acute January 20 2:23pm Family history of hemochromatosis acute January 20, 2025 2 :23pm H/O miscarriage, currently acute January 20, 2025 2 :23pm Obesity affecting acute January 20, 2025 2:23pm acute January 20, 2025 2:23pm affected by growth restriction acute January 20 2:23pm Supervision of high-risk acute January 20, 2025 2 :23pm Vegetarian diet acute January 20, 2025 2:23pm [facility] Work Phone: 1([phone]) 798-642412-02-2024 Evaluation note* Diagnosis Onset Date Resolution Status Admit Date Threatened resolved Decem 2023 11:32am Threatened resolved Decem 2023 1:57pm Family history of hemochromatosis acute August 22, 2 024 2:11pm H/O miscarriage, currently acute August 22, 2 024 2:11pm Obesity affecting acute August 22, 2024 2:11pm acute August 22, 2024 2:11pm Supervision of high-risk acute August 22, 2 024 2:11pm Vegetarian diet acute August 22, 2024 2:11pm Threatened resolved Decem 2023 2:11pm Chlamydia infection during acute September 23 1:26pm Family history of hemochromatosis acute September 23 1:26pm H/O miscarriage, currently acute September 23 1:26pm Obesity affecting acute September 23, 2024 1:26pm acute September 23, 2024 1:26pm Supervision of high-risk acute September 23 1:26pm Vegetarian diet acute September 102024 1:26pm Threatened resolved Janua 2024 1:26pm Chlamydia infection during acute October 22, 2 025 2:09pm Family history of hemochromatosis acute October 22, 2 025 2:09pm H/O miscarriage, currently acute October 22, 2 025 2:09pm Obesity affecting acute October 22, 2024 2:09pm acute October 22, 2024 2:09pm Supervision of high-risk acute October 22, 2 025 2:09pm Vegetarian diet acute October 22, 2024 2:09pm Chlamydia infection during acute November 18, 2024 3:36pm Family history of hemochromatosis acute November 18, 2024 3:36pm H/O miscarriage, currently acute November 18, 2024 3:36pm Obesity affecting acute November 18, 2024 3:36pm acute November 18 3:36pm Supervision of high-risk acute November 18, 2024 3:36pm Vegetarian diet acute November 3:36pm [facility] Work Phone: 1(354) 877-237511-15-2024 History of Present illness Narrative* Minerva Flower, HIGH RISK CASE MANAGER-SHINGLE GRADER - 07/25/2024 4:20 PM EST Subjective Patient ID: Maddie Torre is a 24 y.o. female who presents for Annual Exam (ANNUAL WELLNESS VISIT,PT IS , SHE JUST FOUND OUT THIS MORNING). HPI: Presents today for WELLNESS EXAM. NO NEW COMPLAINTS 4 HOME TEST POSITIVE. SHE HAS STARTED VITAMINS AND HAS AN APPT WITH HER OBGYN NEXT MONTH. WILL ORDER HCG Visit Vitals BP 122/85 Pulse 78 Ht 1.575 m (5' 2) Wt 76.4 kg (168 lb 6.4 oz) BMI 30.80 kg/m OB Status Smoking Status Never BSA 1.83 m Review of Systems Constitutional: Negative for chills, fatigue, fever and unexpected weight change. HENT: Negative for congestion, ear pain, sore throat and trouble swallowing. Eyes: Negative for photophobia, pain, redness and visual disturbance. Respiratory: Negative for apnea, cough, choking, chest tightness, shortness of breath and wheezing. Cardiovascular: Negative for chest pain, palpitations and leg swelling. Gastrointestinal: Negative for abdominal distention, abdominal pain, blood in stool, constipation, diarrhea, nausea and vomiting. Genitourinary: Negative for difficulty urinating, dysuria, flank pain, frequency, hematuria and urgency. Musculoskeletal: Negative for arthralgias, back pain, gait problem, joint swelling, myalgias and neck pain. Skin: Negative for rash and wound. Neurological: Negative for dizziness, seizures, syncope, facial asymmetry, speech difficulty, weakness, numbness and headaches. Psychiatric/Behavioral: Negative for confusion, sleep disturbance and suicidal ideas. The patient is not nervous/anxious. Objective Physical Exam Constitutional: Appearance: Normal appearance. She is normal weight. HENT: Head: Normocephalic. Eyes: Extraocular Movements: Extraocular movements intact. Conjunctiva/sclera: Conjunctivae normal. Pupils: Pupils are equal, round, and reactive to light. Cardiovascular: Rate and Rhythm: Normal rate and regular rhythm. Pulses: Normal pulses. Heart sounds: Normal heart sounds. Pulmonary: Effort: Pulmonary effort is normal. Breath sounds: Normal breath sounds. Musculoskeletal: General: Normal range of motion. Cervical back: Normal range of motion. Skin: General: Skin is warm and dry. Neurological: General: No focal deficit present. Mental Status: She is alert and oriented to person, place, and time. Psychiatric: Mood and Affect: Mood normal. Behavior: Behavior normal. Thought Content: Thought content normal. Judgment: Judgment normal. Assessment/Plan Problem List Items Addressed This Visit Wellness examination - Primary Relevant Orders Hemoglobin A1C CBC and Auto Differential Comprehensive Metabolic Panel Lipid Panel TSH with reflex to Free T4 if abnormal Vitamin D deficiency Relevant Orders Vitamin D 25-Hydroxy,Total (for eval of Vitamin D levels) Parathyroid Hormone, Intact Iron deficiency anemia Relevant Orders Ferritin Iron and TIBC Vitamin B12 Other Visit Diagnoses Amenorrhea Relevant Orders Human Chorionic Gonadotropin, Serum Quantitative PLEASE MONITOR CLOSELY FOR ANY UNTOWARD SIDE EFFECTS OR COMPLICATIONS OF MEDICATIONS. PATIENT IS STRONGLY ADVISED TO BE COMPLIANT WITH RECOMMENDATIONS. QUESTIONS AND CONCERNS WERE ADDRESSED. INSTRUCTED TO CALL, RETURN SOONER, OR GO TO THE ER, IF SYMPTOMS PERSIST OR WORSEN. THEY VOICED UNDERSTANDINGAND DENIES FURTHER QUESTIONS AT THIS TIME. TIME CODE 1. PREPARATION FOR PATIENT'S VISIT (REVIEWING CHART, CURRENT MEDICAL RECORDS, OUTSIDE HEALTH PROVIDER RECORDS, PREVIOUS HISTORY, EXAM, TEST, PROCEDURE, AND MEDICATIONS) 2. FACE TO FACE ENCOUNTER OBTAINING HISTORY FROM THE PATIENT/FAMILY/CAREGIVERS; PERFORMING EVALUATION AND EXAMINATION; ORDERING TESTS OR PROCEDURES; REFERRING AND COMMUNICATING WITH OTHER HEALTHCARE PROVIDERS; COUNSELING AND EDUCATION OF THE PATIENT/FAMILY/CAREGIVERS; INDEPENDENTLY INTERPRETING RESULTS (TESTS, LABS, PROCEDURES, IMAGING) AND COMMUNICATING AND EXPLAINING RESULTS TO THE PATIENT/FAMILY/CAREGIVERS 3. COORDINATION OF CARE; PREPARING AND PRINTING DISCHARGE INSTRUCTIONS AND ANY EDUCATIONAL MATERIALFOR THE PATIENT/FAMILY/CAREGIVERS. DOCUMENTING CLINICAL INFORMATION IN THE ELECTRONIC MEDICAL RECORD 4. REVIEWING OARRS NEEDED MDM 1) COMPLEXITY: 1 ACUTE ILLNESS, 1 STABLE CHRONIC CONDITION, OR 2 MINOR PROBLEMS ADDRESSED 2)DATA: TESTS INTERPRETED AND OR ORDERED, TOOK INDEPENDENT HISTORY OR RECORDS REVIEWED 3)RISK: LOW RISK DUE TO NATURE OF MEDICAL CONDITIONS/COMORBIDITY OR MEDICATIONS ORDERED OR SURGICALOR PROCEDURE REFERRAL WILL CALL PER PATIENT REQUEST [facility]: [phone]) [phone] History of Present illness Narrative* KATHY Quinteros - 07/05/2023 9:00 AM EDT Subjective Patient ID: Maddie Torre is a 22 y.o. female who presents for Sore Throat (Associated with fever.Pt states she went to urgent care 07/02/23. No medication was prescribed.Pt state she was diagnosedwith uri. Pt tested negative for covid 07/05/23. She states she is not feeling any better). VIRTUAL APPOINTMENT BEING PERFORMED DUE TO COVID-19 (CORONAVIRUS) HPI: Presents today for C/O COUGH, FEVER, AND SORE THROAT X 5 DAYS modifying factors consists of 07/02/23 DX WITH URI AT URGENT CARE. NEGATIVE COVID ON 07/05/23 associated symptoms consist of BODY ACHES. NO NASAL CONGESTION OR SOB. prior treatment consists of medication NONE Visit Vitals OB Status Having periods Smoking Status Never Review of Systems Constitutional: Positive for fatigue and fever. Negative for chills and unexpected weight change. HENT: Positive for sore throat. Negative for congestion, ear pain and trouble swallowing. Eyes: Negative for photophobia, pain, redness and visual disturbance. Respiratory: Positive for cough. Negative for apnea, choking, chest tightness, shortness of breath and wheezing. Cardiovascular: Negative for chest pain, palpitations and leg swelling. Gastrointestinal: Negative for abdominal distention, abdominal pain, blood in stool, constipation, diarrhea, nausea and vomiting. Genitourinary: Negative for difficulty urinating, dysuria, flank pain, frequency, hematuria and urgency. Musculoskeletal: Negative for arthralgias, back pain, gait problem, joint swelling, myalgias and neck pain. Skin: Negative for rash and wound. Neurological: Negative for dizziness, seizures, syncope, facial asymmetry, speech difficulty, weakness, numbness and headaches. Psychiatric/Behavioral: Negative for confusion, sleep disturbance and suicidal ideas. The patient is not nervous/anxious. Objective Physical Exam Psychiatric: Mood and Affect: Mood normal. Behavior: Behavior normal. Thought Content: Thought content normal. Judgment: Judgment normal. Assessment/Plan Problem List Items Addressed This Visit Pharyngitis - Primary Relevant Medications amoxicillin (Amoxil) 500 mg capsule fluconazole (Diflucan) 150 mg tablet INCREASE FLUID INTAKE AND TAKE TYLENOL 650 MG PO Q6H/PRN FOR PAIN OR FEVER. RETURN SOONER OR GO TO THE ER IF SYMPTOMS PERSIST OR WORSEN WE DISCUSSED MOST COMMON SIDE EFFECTS OF PRESCRIBED MEDICATIONS. INDICATIONS, RISK, COMPLICATIONS, AND ALTERNATIVES OF MEDICATION/THERAPEUTICS WERE EXPLAINED AND DISCUSSED. PLEASE MONITOR CLOSELY FORANY UNTOWARD SIDE EFFECTS OR COMPLICATIONS OF MEDICATIONS. PATIENT IS STRONGLY ADVISED TO BE COMPLIANT WITH RECOMMENDATIONS. QUESTIONS AND CONCERNS WERE ADDRESSED. INSTRUCTED TO CALL, RETURN SOONER, OR GO TO THE ER, IF SYMPTOMS PERSIST OR WORSEN. THEY VOICED UNDERSTANDING AND DENIES FURTHER QUESTIONS AT THIS TIME. TIME CODE 1. PREPARATION FOR PATIENT'S VISIT (REVIEWING CHART, CURRENT MEDICAL RECORDS, OUTSIDE HEALTH PROVIDER RECORDS, PREVIOUS HISTORY, EXAM, TEST, PROCEDURE, AND MEDICATIONS) 2. FACE TO FACE ENCOUNTER OBTAINING HISTORY FROM THE PATIENT/FAMILY/CAREGIVERS; PERFORMING EVALUATION AND EXAMINATION; ORDERING TESTS OR PROCEDURES; REFERRING AND COMMUNICATING WITH OTHER HEALTHCARE PROVIDERS; COUNSELING AND EDUCATION OF THE PATIENT/FAMILY/CAREGIVERS; INDEPENDENTLY INTERPRETING RESULTS (TESTS, LABS, PROCEDURES, IMAGING) AND COMMUNICATING AND EXPLAINING RESULTS TO THE PATIENT/FAMILY/CAREGIVERS 3. COORDINATION OF CARE; PREPARING AND PRINTING DISCHARGE INSTRUCTIONS AND ANY EDUCATIONAL MATERIALFOR THE PATIENT/FAMILY/CAREGIVERS. DOCUMENTING CLINICAL INFORMATION IN THE ELECTRONIC MEDICAL RECORD 4. REVIEWING OARRS NEEDED MDM 1) COMPLEXITY: MORE THAN 1 STABLE CHRONIC CONDITION ADDRESSED OR 1 ACUTE ILLNESS ADDRESSED 2)DATA: TESTS INTERPRETED AND OR ORDERED, TOOK INDEPENDENT HISTORY OR RECORDS REVIEWED 3)RISK: MODERATE RISK DUE TO NATURE OF MEDICAL CONDITIONS/COMORBIDITY OR MEDICATIONS ORDERED OR SURGICAL OR PROCEDURE REFERRAL Follow up as before [facility] Evaluation note* Diagnosis Pharyngitis, unspecified etiology- Primary documented in this [facility] Work Phone: Evaluation note* Diagnosis Wellness examination- Primary Vitamin D deficiency Iron deficiency anemia, unspecified iron deficiency anemia type Amenorrhea Absence of menstruation documented in this [facility] Work Phone: Evaluation note* Diagnosis Leukocytosis, unspecified type- Primary B12 deficiency Vitamin D deficiency documented in this encounter [facility] Work Phone: History of Present illness Narrative* KATHY Quinteros - 07/29/2024 2:20 PM EST Subjective Patient ID: Maddie Torre is a 24 y.o. female who presents for Follow-up (F/U LABS). HPI: Presents today for FU LABS. SHE IS RECENTLY . Appt with obgyn 08/22/24. No new complaints B12- LOW. INJECTION TODAY AFTER VIRTUAL SHE CAME IN OFFICE. THEN START MONTHLY B12 INJECTIONS VIT D- LOW. STOP WEEKLY. START DAILY VIT D3 IRON- STABLE ELEVATED WBC- ELEVATED. RECHECK LEVEL Visit Vitals Ht 1.575 m (5' 2) Wt 76.5 kg (168 lb 9.6 oz) BMI 30.84 kg/m OB Status Smoking Status Never BSA 1.83 m Review of Systems Constitutional: Negative for chills, fatigue, fever and unexpected weight change. HENT: Negative for congestion, ear pain, sore throat and trouble swallowing. Eyes: Negative for photophobia, pain, redness and visual disturbance. Respiratory: Negative for apnea, cough, choking, chest tightness, shortness of breath and wheezing. Cardiovascular: Negative for chest pain, palpitations and leg swelling. Gastrointestinal: Negative for abdominal distention, abdominal pain, blood in stool, constipation, diarrhea, nausea and vomiting. Genitourinary: Negative for difficulty urinating, dysuria, flank pain, frequency, hematuria and urgency. Musculoskeletal: Negative for arthralgias, back pain, gait problem, joint swelling, myalgias and neck pain. Skin: Negative for rash and wound. Neurological: Negative for dizziness, seizures, syncope, facial asymmetry, speech difficulty, weakness, numbness and headaches. Psychiatric/Behavioral: Negative for confusion, sleep disturbance and suicidal ideas. The patient is not nervous/anxious. Objective Component Latest Ref Rn 07/25/2024 WBC 4.4 - 11.3 x10*3/uL 13.4 (H) nRBC 0.0 - 0.0 /100 WBCs 0.0 RBC 4.00 - 5.20 x10*6/uL 4.23 HEMOGLOBIN 12.0 - 16.0 g/dL 12.6 HEMATOCRIT 36.0 - 46.0 % 37.7 MCV 80 - 100 fL 89 MCH 26.0 - 34.0 pg 29.8 MCHC 32.0 - 36.0 g/dL 33.4 RED CELL DISTRIBUTION WIDTH 11.5 - 14.5 % 12.3 Platelets 150 - 450 x10*3/uL 291 Neutrophils % 40.0 - 80.0 % 73.5 Immature Granulocytes %, Automated 0.0 - 0.9 % 0.3 Lymphocytes % 13.0 - 44.0 % 20.0 Monocytes % 2.0 - 10.0 % 4.8 Eosinophils % 0.0 - 6.0 % 1.2 Basophils % 0.0 - 2.0 % 0.2 Neutrophils Absolute 1.20 - 7.70 x10*3/uL 9.84 (H) Immature Granulocytes Absolute, Automated 0.00 - 0.70 x10*3/uL 0.04 Lymphocytes Absolute 1.20 - 4.80 x10*3/uL 2.68 Monocytes Absolute 0.10 - 1.00 x10*3/uL 0.64 Eosinophils Absolute 0.00 - 0.70 x10*3/uL 0.16 Basophils Absolute 0.00 - 0.10 x10*3/uL 0.03 GLUCOSE 74 - 99 mg/dL 99 SODIUM 136 - 145 mmol/L 134 (L) POTASSIUM 3.5 - 5.3 mmol/L 3.9 CHLORIDE 98 - 107 mmol/L 103 Bicarbonate 21 - 32 mmol/L 26 Anion Gap 10 - 20 mmol/L 9 (L) Blood Urea Nitrogen 6 - 23 mg/dL 13 Creatinine 0.50 - 1.05 mg/dL 0.68 EGFR >60 mL/min/1.73m*2 >90 Calcium 8.6 - 10.3 mg/dL 9.3 Albumin 3.4 - 5.0 g/dL 4.4 Alkaline Phosphatase 33 - 110 U/L 70 Total Protein 6.4 - 8.2 g/dL 7.0 AST 9 - 39 U/L 15 Bilirubin Total 0.0 - 1.2 mg/dL 0.3 ALT 7 - 45 U/L 14 IRON 35 - 150 ug/dL 83 UIBC 110 - 370 ug/dL 342 TIBC 240 - 445 ug/dL 425 % Saturation 25 - 45 % 20 (L) Hemoglobin A1C See comment % 5.1 Estimated Average Glucose Not Established mg/dL 100 Thyroid Stimulating Hormone 0.44 - 3.98 mIU/L 2.06 Vitamin D, 25-Hydroxy, Total 30 - 100 ng/mL 18 (L) Parathyroid Hormone, Intact 18.5 - 88.0 pg/mL 33.3 FERRITIN 8 - 150 ng/mL 45 Vitamin B12 211 - 911 pg/mL 166 (L) HCG, Beta-Quantitative <5 mIU/mL 16 (H) Legend: (H) High (L) Low Physical Exam Neurological: Mental Status: She is alert and oriented to person, place, and time. Psychiatric: Mood and Affect: Mood normal. Thought Content: Thought content normal. Judgment: Judgment normal. Assessment/Plan Problem List Items Addressed This Visit Vitamin D deficiency Relevant Medications cholecalciferol (Vitamin D3) 50 MCG (1999 UT) tablet Other Visit Diagnoses Leukocytosis, unspecified type - Primary Relevant Orders CBC and Auto Differential B12 deficiency Relevant Medications cyanocobalamin (Vitamin B-12) injection 1,000 mcg (Start on 07/29/2024 2:00 PM) WE DISCUSSED MOST COMMON SIDE EFFECTS OF PRESCRIBED MEDICATIONS. INDICATIONS, RISK, COMPLICATIONS, AND ALTERNATIVES OF MEDICATION/THERAPEUTICS WERE EXPLAINED AND DISCUSSED. PLEASE MONITOR CLOSELY FORANY UNTOWARD SIDE EFFECTS OR COMPLICATIONS OF MEDICATIONS. PATIENT IS STRONGLY ADVISED TO BE COMPLIANT WITH RECOMMENDATIONS. QUESTIONS AND CONCERNS WERE ADDRESSED. INSTRUCTED TO CALL, RETURN SOONER, OR GO TO THE ER, IF SYMPTOMS PERSIST OR WORSEN. THEY VOICED UNDERSTANDING AND DENIES FURTHER QUESTIONS AT THIS TIME. TIME CODE 1. PREPARATION FOR PATIENT'S VISIT (REVIEWING CHART, CURRENT MEDICAL RECORDS, OUTSIDE HEALTH PROVIDER RECORDS, PREVIOUS HISTORY, EXAM, TEST, PROCEDURE, AND MEDICATIONS) 2. FACE TO FACE ENCOUNTER OBTAINING HISTORY FROM THE PATIENT/FAMILY/CAREGIVERS; PERFORMING EVALUATION AND EXAMINATION; ORDERING TESTS OR PROCEDURES; REFERRING AND COMMUNICATING WITH OTHER HEALTHCARE PROVIDERS; COUNSELING AND EDUCATION OF THE PATIENT/FAMILY/CAREGIVERS; INDEPENDENTLY INTERPRETING RESULTS (TESTS, LABS, PROCEDURES, IMAGING) AND COMMUNICATING AND EXPLAINING RESULTS TO THE PATIENT/FAMILY/CAREGIVERS 3. COORDINATION OF CARE; PREPARING AND PRINTING DISCHARGE INSTRUCTIONS AND ANY EDUCATIONAL MATERIALFOR THE PATIENT/FAMILY/CAREGIVERS. DOCUMENTING CLINICAL INFORMATION IN THE ELECTRONIC MEDICAL RECORD 4. REVIEWING OARRS NEEDED MDM 1) COMPLEXITY: MORE THAN 1 STABLE CHRONIC CONDITION ADDRESSED OR 1 ACUTE ILLNESS ADDRESSED 2)DATA: TESTS INTERPRETED AND OR ORDERED, TOOK INDEPENDENT HISTORY OR RECORDS REVIEWED 3)RISK: MODERATE RISK DUE TO NATURE OF MEDICAL CONDITIONS/COMORBIDITY OR MEDICATIONS ORDERED OR SURGICAL OR PROCEDURE REFERRAL WILL CALL PER PATIENT REQUEST documented in this encounterMercy Health Work Phone: Reason for referral (narrative)No reason for referral information availableWSt. Charles Hospital Work Phone: Summary Purpose Family History Relationship Condition Age at Onset Recorded Date/T elizabeth grandmother Malignant neoplasm Unknown aunt Malignant neoplasm Unknown Advance Directives No Advanced Directives Records FoundNo Advanced Directives Records FoundNo Advanced Directives Records FoundNo Advanced Directives Records FoundNo Advanced Directives Records Found Chief Complaint and Reason for Visit Chief Complaint Admit Date Spotting, new OB is next week August 112023 11:32am EORDER August 11, 2024 1 2:35pm RESCAN per SM August 13, 2024 1 :57pm Amb Documentation August 15, 2024 9 :04am New OB, LMP 10/14, ITZEL 03/30/25 August 22, 2024 2:11pm VIABILITY August 22, 2024 3:16pm 12wk OB September 23, 2024 1 :26pm 17 wk ob October 22, 2024 2:09pm ANATOMY November 10, 2024 1:13 pm 21 wk ob November 18, 2024 3:3 6pm Reason for Visit Admit Date Threatened August 11, 2024 1 1:32am Threatened August 13, 2024 1 :57pm Family history of hemochromatosis Decemb er 2023 2:11pm H/O miscarriage, currently Dece mber 2023 2:11pm Obesity affecting August 2:11pm August 22, 2024 2:11pm Supervision of high-risk Decem ceci 2023 2:11pm Vegetarian diet August 22, 2024 2:11pm Threatened August 22, 2024 2:11pm Chlamydia infection during Endy uary 2024 1:26pm Family history of hemochromatosis Januar y 2024 1:26pm H/O miscarriage, currently Daniel chico 2024 1:26pm Obesity affecting September 1:26pm September 23, 2024 1 :26pm Supervision of high-risk Janua ry 2024 1:26pm Vegetarian diet September 23, 2024 1 :26pm Threatened September 23, 2024 1 :26pm Chlamydia infection during Feb ruary 2024 2:09pm Family history of hemochromatosis Februa ry 2024 2:09pm H/O miscarriage, currently Febr [email or web address] 2:09pm Obesity affecting October 2:09pm October 22, 2024 2:09pm Supervision of high-risk Febru 2024 2:09pm Vegetarian diet October 22, 2024 2:09pm Chlamydia infection during Mar 2024 3:36pm Family history of hemochromatosis November 18, 2024 3:36pm H/O miscarriage, currently [facility] 2024 3:36pm Obesity affecting November 18, 2024 3:36pm November 18, 2024 3:3 6pm Supervision of high-risk November 18, 2024 3:36pm Vegetarian diet November 18, 2024 3:3 6pm Chief Complaint Admit Date 12wk OB September 23, 2024 1 :26pm 17 wk ob October 22, 2024 2:09pm ANATOMY November 10, 2024 1:13 pm 21 wk ob November 18, 2024 3:3 6pm 25 wk ob December 18, 2024 1:5 8pm INT LAB ORDERS January 06, 2025 11: 53am 28 wk ob/glucose January 06, 2025 12: 36pm FOLLOW UP [facility] January 08, 2025 4:10pm Reason for Visit Admit Date Chlamydia infection during Endy uary 2024 1:26pm Family history of hemochromatosis Januar y 2024 1:26pm H/O miscarriage, currently Daniel [email or web address] 1:26pm Obesity affecting September 1:26pm September 23, 2024 1 :26pm Supervision of high-risk Janua ry 2024 1:26pm Vegetarian diet September 23, 2024 1 :26pm Threatened September 23, 2024 1 :26pm Chlamydia infection during Feb ruary 2024 2:09pm Family history of hemochromatosis Februa ry 2024 2:09pm H/O miscarriage, currently Febr uary 2024 2:09pm Obesity affecting October 2:09pm October 22, 2024 2:09pm Supervision of high-risk Febru chico 2024 2:09pm Vegetarian diet October 22, 2024 2:09pm Chlamydia infection during [facility] 2024 3:36pm Family history of hemochromatosis November 18, 2024 3:36pm H/O miscarriage, currently Barak h 2024 3:36pm Obesity affecting November 18, 2024 3:36pm November 18, 2024 3:3 6pm Supervision of high-risk November 18, 2024 3:36pm Vegetarian diet November 18, 2024 3:3 6pm Chlamydia infection during Apr il 2024 1:58pm Choroid plexus cyst of fetus in singleto n December 18, 2024 1:58pm Family history of hemochromatosis December 18, 2024 1:58pm H/O miscarriage, currently Apri l 2024 1:58pm Obesity affecting December 18, 2024 1:58pm December 18, 2024 1:5 8pm Supervision of high-risk December 18, 2024 1:58pm Vegetarian diet December 18, 2024 1:5 8pm Chlamydia infection during Apr il 2024 12:36pm Choroid plexus cyst of fetus in singleto n January 06, 2025 12:36pm Family history of hemochromatosis January 06, 2025 12:36pm H/O miscarriage, currently Apri l 2024 12:36pm Obesity affecting January 06, 2025 12:36pm January 06, 2025 12: 36pm Supervision of high-risk January 06, 2025 12:36pm Vegetarian diet January 06, 2025 12: 36pm Chief Complaint Admit Date 12wk OB September 23, 2024 1 :26pm 17 wk ob October 22, 2024 2:09pm ANATOMY November 10, 2024 1:13 pm 21 wk ob November 18, 2024 3:3 6pm 25 wk ob December 18, 2024 1:5 8pm INT LAB ORDERS January 06, 2025 11: 53am 28 wk ob/glucose January 06, 2025 12: 36pm FOLLOW UP [facility] January 08, 2025 4:10pm 30 wk ob January 20, 2025 2:23p m Reason for Visit Admit Date Chlamydia infection during Endy petersen 2024 1:26pm Family history of hemochromatosis Sachin hanna 2024 1:26pm H/O miscarriage, currently Daniel chico 2024 1:26pm Obesity affecting September 1:26pm September 23, 2024 1 :26pm Supervision of high-risk Janua ry 2024 1:26pm Vegetarian diet September 23, 2024 1 :26pm Threatened September 23, 2024 1 :26pm Chlamydia infection during Feb ruary 2024 2:09pm Family history of hemochromatosis Februa ry 2024 2:09pm H/O miscarriage, currently Febr uary 2024 2:09pm Obesity affecting October 2:09pm October 22, 2024 2:09pm Supervision of high-risk Febru chico 2024 2:09pm Vegetarian diet October 22, 2024 2:09pm Chlamydia infection during Mar 2024 3:36pm Family history of hemochromatosis November 18, 2024 3:36pm H/O miscarriage, currently Barak h 2024 3:36pm Obesity affecting November 18, 2024 3:36pm November 18, 2024 3:3 6pm Supervision of high-risk November 18, 2024 3:36pm Vegetarian diet November 18, 2024 3:3 6pm Chlamydia infection during Apr il 2024 1:58pm Choroid plexus cyst of fetus in singleto n December 18, 2024 1:58pm Family history of hemochromatosis December 18, 2024 1:58pm H/O miscarriage, currently Apri l 2024 1:58pm Obesity affecting December 18, 2024 1:58pm December 18, 2024 1:5 8pm Supervision of high-risk December 18, 2024 1:58pm Vegetarian diet December 18, 2024 1:5 8pm Chlamydia infection during Apr il 2024 12:36pm Choroid plexus cyst of fetus in singleto n January 06, 2025 12:36pm Family history of hemochromatosis January 06, 2025 12:36pm H/O miscarriage, currently Apri l 2024 12:36pm Obesity affecting January 06, 2025 12:36pm January 06, 2025 12: 36pm Supervision of high-risk January 06, 2025 12:36pm Vegetarian diet January 06, 2025 12: 36pm Chlamydia infection during January 20, 2025 2:23pm Choroid plexus cyst of fetus in singleto n January 20, 2025 2:23pm Family history of hemochromatosis January 202024 2:23pm H/O miscarriage, currently January 20, 2025 2:23pm Obesity affecting January 20 2:23pm January 20, 2025 2:23p m affected by growth restr iction January 20, 2025 2:23pm Supervision of high-risk January 082024 2:23pm Vegetarian diet January 20, 2025 2:23p m Chief Complaint Admit Date 17 wk ob October 22, 2024 2:09pm ANATOMY November 10, 2024 1:13 pm 21 wk ob November 18, 2024 3:3 6pm 25 wk ob December 18, 2024 1:5 8pm INT LAB ORDERS January 06, 2025 11: 53am 28 wk ob/glucose January 06, 2025 12: 36pm FOLLOW UP [facility] January 08, 2025 4:10pm 30 wk ob January 20, 2025 2:23p m 32 wk ob February 03, 2025 1:38p m Reason for Visit Admit Date Chlamydia infection during Feb ruary 2024 2:09pm Family history of hemochromatosis Februa ry 2024 2:09pm H/O miscarriage, currently Febr uary 2024 2:09pm Obesity affecting October 2:09pm October 22, 2024 2:09pm Supervision of high-risk Febru chico 2024 2:09pm Vegetarian diet October 22, 2024 2:09pm Chlamydia infection during Mar ch 2024 3:36pm Family history of hemochromatosis November 18, 2024 3:36pm H/O miscarriage, currently Barak 2024 3:36pm Obesity affecting November 18, 2024 3:36pm November 18, 2024 3:3 6pm Supervision of high-risk November 18, 2024 3:36pm Vegetarian diet November 18, 2024 3:3 6pm Chlamydia infection during Apr il 2024 1:58pm Family history of hemochromatosis December 18, 2024 1:58pm H/O miscarriage, currently Apri l 2024 1:58pm Obesity affecting December 18, 2024 1:58pm December 18, 2024 1:5 8pm Supervision of high-risk December 18, 2024 1:58pm Vegetarian diet December 18, 2024 1:5 8pm Choroid plexus cyst of fetus in singleto n December 18, 2024 1:58pm Chlamydia infection during Apr il 2024 12:36pm Family history of hemochromatosis January 06, 2025 12:36pm H/O miscarriage, currently Apri l 2024 12:36pm Obesity affecting January 06, 2025 12:36pm January 06, 2025 12: 36pm Supervision of high-risk January 06, 2025 12:36pm Vegetarian diet January 06, 2025 12: 36pm Choroid plexus cyst of fetus in singleto n January 06, 2025 12:36pm Chlamydia infection during January 20, 2025 2:23pm Family history of hemochromatosis January 202024 2:23pm H/O miscarriage, currently January 20, 2025 2:23pm Obesity affecting January 20 2:23pm January 20, 2025 2:23p m affected by growth restr iction January 20, 2025 2:23pm Supervision of high-risk January 082024 2:23pm Vegetarian diet January 20, 2025 2:23p m Anemia in preg-unspec February 03, 2025 1:3 8pm Chlamydia infection during February 03, 2025 1:38pm Family history of hemochromatosis February 032024 1:38pm H/O miscarriage, currently February 03, 2025 1:38pm Obesity affecting February 03 1:38pm February 03, 2025 1:38p m affected by growth restr iction February 03, 2025 1:38pm Supervision of high-risk January 092024 1:38pm Vegetarian diet February 03, 2025 1:38p m Chief Complaint Admit Date 17 wk ob October 22, 2024 2:09pm ANATOMY November 10, 2024 1:13 pm 21 wk ob November 18, 2024 3:3 6pm 25 wk ob December 18, 2024 1:5 8pm INT LAB ORDERS January 06, 2025 11: 53am 28 wk ob/glucose January 06, 2025 12: 36pm FOLLOW UP [facility] January 08, 2025 4:10pm 30 wk ob January 20, 2025 2:23p m 32 wk ob February 03, 2025 1:38p m 33wk ob February 18, 2025 2:01 pm Reason for Visit Admit Date Chlamydia infection during Feb ruary 2024 2:09pm Family history of hemochromatosis Februa ry 2024 2:09pm H/O miscarriage, currently Febr uary 2024 2:09pm Obesity affecting October 2:09pm October 22, 2024 2:09pm Supervision of high-risk Febru chico 2024 2:09pm Vegetarian diet October 22, 2024 2:09pm Chlamydia infection during Mar ch 2024 3:36pm Family history of hemochromatosis November 18, 2024 3:36pm H/O miscarriage, currently Barak h 2024 3:36pm Obesity affecting November 18, 2024 3:36pm November 18, 2024 3:3 6pm Supervision of high-risk November 18, 2024 3:36pm Vegetarian diet November 18, 2024 3:3 6pm Chlamydia infection during Apr il 2024 1:58pm Family history of hemochromatosis December 18, 2024 1:58pm H/O miscarriage, currently Apri l 2024 1:58pm Obesity affecting December 18, 2024 1:58pm December 18, 2024 1:5 8pm Supervision of high-risk December 18, 2024 1:58pm Vegetarian diet December 18, 2024 1:5 8pm Choroid plexus cyst of fetus in singleto n December 18, 2024 1:58pm Chlamydia infection during Apr il 2024 12:36pm Family history of hemochromatosis January 06, 2025 12:36pm H/O miscarriage, currently Apri l 2024 12:36pm Obesity affecting January 06, 2025 12:36pm January 06, 2025 12: 36pm Supervision of high-risk January 06, 2025 12:36pm Vegetarian diet January 06, 2025 12: 36pm Choroid plexus cyst of fetus in singleto n January 06, 2025 12:36pm Chlamydia infection during January 20, 2025 2:23pm Family history of hemochromatosis January 202024 2:23pm H/O miscarriage, currently January 20, 2025 2:23pm Obesity affecting January 20 2:23pm January 20, 2025 2:23p m affected by growth restr iction January 20, 2025 2:23pm Supervision of high-risk January 082024 2:23pm Vegetarian diet January 20, 2025 2:23p m Anemia in preg-unspec February 03, 2025 1:3 8pm Chlamydia infection during February 03, 2025 1:38pm Family history of hemochromatosis February 032024 1:38pm H/O miscarriage, currently February 03, 2025 1:38pm Obesity affecting February 03 1:38pm February 03, 2025 1:38p m affected by growth restr iction February 03, 2025 1:38pm Supervision of high-risk January 092024 1:38pm Vegetarian diet February 03, 2025 1:38p m Anemia in preg-unspec February 18, 2025 2: 01pm Chlamydia infection during Rick 2024 2:01pm Family history of hemochromatosis February 082024 2:01pm H/O miscarriage, currently February 18, 2025 2:01pm Obesity affecting February 18, 2:01pm February 18, 2025 2:01 pm affected by growth restr iction February 18, 2025 2:01pm Supervision of high-risk February 18, 2025 2:01pm Vegetarian diet February 18, 2025 2:01 pm Additional Source Comments <item> Privacy Markings (unrecogniz ed section and content) Section Author: Kelsi Burrell PROHIBITION ON REDISCLOSURE OF CONFIDENTIAL INFORMATION This notice accompanies a disclosure of information concerning a client made to you with the consent of such client. INFORMATION SOURCE (unrecogn ized section and content) DATE CREATED AUTHOR 12/01/2021 [facility] DATE CREATED AUTHOR AUTHOR'S ORGANIZ ATION 08/05/2024 [facility] DATE CREATED AUTHOR AUTHOR'S ORGANIZ ATION 09/22/2024 [facility] DATE CREATED AUTHOR AUTHOR'S ORGANIZ ATION 01/16/2025 [facility] DATE CREATED AUTHOR AUTHOR'S ORGANIZ ATION 02/12/2025 [facility] Reason for Visit (unrecogniz ed section and content) Reason Comments Sore Throat Associated with feabimael r. Pt states she went to urgent care 07/02/23. No medication was prescribed.Pt state she was diagnosed with uri. Pt tested negative for covid 07/05/23. 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 Logging Operator Relationship Specialty Start Date End Date Minerva Flower, HIGH RISK CASE MANAGER-SHINGLE GRADER [address] [place] [address] PCP - General Internal Medicine 05/23/23 Temperature Logging Operator Relationship Specialty Start Date End Date Minerva Flower, HIGH RISK CASE MANAGER-SHINGLE GRADER [address] [place] [address] PCP - General Internal Medicine 05/23/23 Temperature Logging Operator Relationship Specialty Start Date End Date Minerva Flower, HIGH RISK CASE MANAGER-SHINGLE GRADER [address] [facility] [place] [address] PCP - General Internal Medicine 05/23/23 Team Status: Active Member Role Status Dates Minerva Flower , CONCRETE BATCHING PLANT OPERATOR-C Primary Care Provider Active Team Status: Inactive Member Role Status Dates Minerva Flower CONCRETE BATCHING PLANT OPERATOR-C Primary Care Provider Active Start: August 11, 2024 End: August 11, 2024 Minerva Flower , CONCRETE BATCHING PLANT OPERATOR-C Referring Provider Active St art: August 11, 2024 End: August 11, 2024 Dr. Radha Peters MD Attending Provider Active Start: August 11, 2024 End: August 11, 2024 Team Status: Inactive Member Role Status Dates Minerva Flower , CONCRETE BATCHING PLANT OPERATOR-C Primary Care Provider Active Start: August 11, 2024 End: August 11, 2024 Dr. Radha Peters MD Attending Provider Active Start: August 11, 2024 End: August 11, 2024 Dr. Radha Peters MD Referring Provider Active Start: August 11, 2024 End: August 11, 2024 Team Status: Inactive Member Role Status Dates Minerva Flower , CONCRETE BATCHING PLANT OPERATOR-C Primary Care Provider Active Start: August 13, 2024 End: August 13, 2024 Minerva Flower CONCRETE BATCHING PLANT OPERATOR-C Referring Provider Active St art: August 13, 2024 End: August 13, 2024 Dr. Radha Peters MD Attending Provider Active Start: August 13, 2024 End: August 13, 2024 Team Status: Active Member Role Status Dates Minerva Flower CONCRETE BATCHING PLANT OPERATOR-C Primary Care Provider Active Start: August 15, 2024 Faith Wall , KIAN Attending Provider Active St art: August 15, 2024 Team Status: Inactive Member Role Status Dates Minerva Flower CONCRETE BATCHING PLANT OPERATOR-C Primary Care Provider Active Start: August 22, 2024 End: August 22, 2024 Minerva Flower CONCRETE BATCHING PLANT OPERATOR-C Referring Provider Active St art: August 22, 2024 End: August 22, 2024 Elle Poe CNM Attending Provider Active S tart: August 22, 2024 End: August 22, 2024 Team Status: Inactive Member Role Status Dates Minerva Flower , CONCRETE BATCHING PLANT OPERATOR-C Primary Care Provider Active Start: August 22, 2024 End: August 22, 2024 Dr. Radha Peters MD Attending Provider Active Start: August 22, 2024 End: August 22, 2024 Dr. Radha Peters MD Referring Provider Active Start: August 22, 2024 End: August 22, 2024 Team Status: Inactive Member Role Status Dates Minerva Flower , CONCRETE BATCHING PLANT OPERATOR-C Primary Care Provider Active Start: September 15, 2024 End: September 15, 2024 Dr. Radha Peters MD Attending Provider Active Start: September 15, 2024 End: September 15, 2024 Dr. Radha Peters MD Referring Provider Active Start: September 15, 2024 End: September 15, 2024 Team Status: Inactive Member Role Status Dates Minerva Flower , CONCRETE BATCHING PLANT OPERATOR-C Primary Care Provider Active Start: September 23, 2024 End: September 23, 2024 Minerva Flower , CONCRETE BATCHING PLANT OPERATOR-C Referring Provider Active St art: September 23, 2024 End: September 23, 2024 Dr. Radha Peters MD Attending Provider Active Start: September 23, 2024 End: September 23, 2024 Team Status: Inactive Member Role Status Dates Minerva Flower , CONCRETE BATCHING PLANT OPERATOR-C Primary Care Provider Active Start: October 22, 2024 End: October 22, 2024 Minerva Flower , CONCRETE BATCHING PLANT OPERATOR-C Referring Provider Active St art: October 22, 2024 End: October 22, 2024 Chioma Springer CONCRETE BATCHING PLANT OPERATOR, CONCRETE BATCHING PLANT OPERATOR-C Attending Provider Active Start: October 22, 2024 End: October 22, 2024 Team Status: Inactive Member Role Status Dates Minerva Flower , CONCRETE BATCHING PLANT OPERATOR-C Primary Care Provider Active Start: October 22, 2024 End: October 22, 2024 Chioma Springer CONCRETE BATCHING PLANT OPERATOR, CONCRETE BATCHING PLANT OPERATOR-C Attending Provider Active Start: October 22, 2024 End: October 22, 2024 Chioma Springer CONCRETE BATCHING PLANT OPERATOR, CONCRETE BATCHING PLANT OPERATOR-C Referring Provider Active Start: October 22, 2024 End: October 22, 2024 Team Status: Inactive Member Role Status Dates Minerva Flower , CONCRETE BATCHING PLANT OPERATOR-C Primary Care Provider Active Start: November 10, 2024 End: November 10, 2024 Dr. Radha Peters MD Attending Provider Active Start: November 10, 2024 End: November 10, 2024 Dr. Radha Peters MD Referring Provider Active Start: November 10, 2024 End: November 10, 2024 Team Status: Inactive Member Role Status Dates Minerva Flower , CONCRETE BATCHING PLANT OPERATOR-C Primary Care Provider Active Start: November 18, 2024 End: November 18, 2024 Minerva Flower , CONCRETE BATCHING PLANT OPERATOR-C Referring Provider Active St art: November 18, 2024 End: November 18, 2024 Chioma Springer NP, CONCRETE BATCHING PLANT OPERATOR-C Attending Provider Active Start: November 18, 2024 End: November 18, 2024 Team Status: Inactive Member Role Status Dates Minerva Flower , CONCRETE BATCHING PLANT OPERATOR-C Primary Care Provider Active Start: December 18, 2024 End: December 18, 2024 Minerva Flower , CONCRETE BATCHING PLANT OPERATOR-C Referring Provider Active St art: December 18, 2024 End: December 18, 2024 Dr. María Elena Solomon , Attending Provider Activ e Start: December 18, 2024 End: December 18, 2024 Team Status: Inactive Member Role Status Dates Minerva Flower , CONCRETE BATCHING PLANT OPERATOR-C Primary Care Provider Active Start: January 06, 2025 End: January 06, 2025 Dr. María Elena Solomon DO Attending Provider Activ e Start: January 06, 2025 End: January 06, 2025 Dr. María Elena Solomon DO Referring Provider Activ e Start: January 06, 2025 End: January 06, 2025 Team Status: Inactive Member Role Status Dates Minerva Flower , CONCRETE BATCHING PLANT OPERATOR-C Primary Care Provider Active Start: January 06, 2025 End: January 06, 2025 Minerva Flower CONCRETE BATCHING PLANT OPERATOR-C Referring Provider Active St art: January 06, 2025 End: January 06, 2025 Elle Poe CNM Attending Provider Active S tart: January 06, 2025 End: January 06, 2025 Team Status: Active Member Role Status Dates Minerva Flower , CONCRETE BATCHING PLANT OPERATOR-C Primary Care Provider Active Start: January 08, 2025 Dr. María Elena Solomon DO Attending Provider Activ e Start: January 08, 2025 Dr. María Elena Solomon DO Referring Provider Activ e Start: January 08, 2025 Team Status: Inactive Member Role Status Dates Minerva Flower , CONCRETE BATCHING PLANT OPERATOR-C Primary Care Provider Active Start: January 08, 2025 End: January 08, 2025 Dr. María Elena Solomon DO Attending Provider Activ e Start: January 08, 2025 End: January 08, 2025 Dr. María Elena Solomon DO Referring Provider Activ e Start: January 08, 2025 End: January 08, 2025 Team Status: Inactive Member Role Status Dates Minerva Flower , CONCRETE BATCHING PLANT OPERATOR-C Primary Care Provider Active Start: January 20, 2025 End: January 20, 2025 Minerva Flower , CONCRETE BATCHING PLANT OPERATOR-C Referring Provider Active St art: January 20, 2025 End: January 20, 2025 Amber Dyer CNM Attending Provider Active Start: January 20, 2025 End: January 20, 2025 Team Status: Inactive Member Role Status Dates Minerva Flower CONCRETE BATCHING PLANT OPERATOR-C Primary Care Provider Active Start: February 03, 2025 End: February 03, 2025 Minerva Flower , CONCRETE BATCHING PLANT OPERATOR-C Referring Provider Active St art: February 03, 2025 End: February 03, 2025 Chioma Springer NP, CONCRETE BATCHING PLANT OPERATOR-C Attending Provider Active Start: February 03, 2025 End: February 03, 2025 Team Status: Active Member Role Status Dates Minerva Flower , CONCRETE BATCHING PLANT OPERATOR-C Primary Care Provider Active Start: February 03, 2025 Chioma Springer NP, CONCRETE BATCHING PLANT OPERATOR-C Attending Provider Active Start: February 03, 2025 Team Status: Inactive Member Role Status Dates Minerva Flower , CONCRETE BATCHING PLANT OPERATOR-C Primary Care Provider Active Start: February 03, 2025 End: February 03, 2025 Chioma Springer CONCRETE BATCHING PLANT OPERATOR, CONCRETE BATCHING PLANT OPERATOR-C Attending Provider Active Start: February 03, 2025 End: February 03, 2025 Team Status: Inactive Member Role Status Dates Minerva Flower , CONCRETE BATCHING PLANT OPERATOR-C Primary Care Provider Active Start: February 18, 2025 End: February 18, 2025 Minerva Flower , CONCRETE BATCHING PLANT OPERATOR-C Referring Provider Active St art: February 18, 2025 End: February 18, 2025 Dr. María Elena Solomon DO Attending Provider Activ e Start: February 18, 2025 End: February 18, 2025 Goals (unrecognized section and content) Goals may be documented in a n alternate sectionGoals may be documented in an alternate sectionGoals may be documented in an alternate sectionGoals may be documented in an alternate sectionGoals may be documented in an alternate sectionGoals may be documented in an alternate sectionGoals may be documented in an alternate section FOR RECORDS PERTAINING TO PATIENTS WHO ARE OR HAVE BEEN ENROLLED IN A CHEMICAL DEPENDENCY/SUBSTANCEABUSE PROGRAM, SOME INFORMATION MAY BE OMITTED. This clinical summary was aggregated from multiple sources. Caution should be exercised in using it in the provision of clinical care. This summary normalizes information from multiple sources, and as a consequence, information in this document may materially change the coding, format and clinical context of patient data. In addition, data may be omitted in some cases. CLINICAL DECISIONS SHOULD BE BASED ON THE PRIMARY CLINICAL RECORDS. [facility] [email or web address], [facility]. provides no warranty or guarantee of the accuracy or completeness of information in this document.
[2025-02-19 07:27] VITALS: BMI 35.6
[2025-02-19 07:36] VITALS: RESP 16; TEMP 36.6
[2025-02-19 07:41] VITALS: BP 121/72; PULSE 87
--- NOTE | 2025-02-19 08:48 | US_ITS ---
PROCEDURE: OB LIMITED (NO BIOMETRICS) 02/19/2025 REASON FOR EXAM: EDITH AND PLACENTA TECHNIQUE: High resolution obstetric ultrasound performed using a 2D transducer. Standard views obtained, including biometry, anatomy survey, and Doppler studies. COMPARISON: Prior study dated January 08, 2025. FINDINGS Number: 1 Position: Breech Placental Position: Anterior and right lateral. Not low-lying. Placental Abnormalities: No evidence of previa. ESTIMATED GESTATIONAL AGE: Baseline: 33 weeks and 3 days ESTIMATED DATE OF DELIVERY: Baseline: April 06, 2025 BIOPHYSICAL ASSESSMENT: Amniotic Fluid Volume: 5.6 cm Amniotic Fluid Index: 12.3 (8-24 cm normal range) Cardiac Motion: 136 beats per minute (average) Trunk and Limb Motion: Present. MATERNAL ANATOMY: Adnexa: Neither maternal ovary is successfully identified. US/OB Limited (No Biometrics) IMPRESSION: Normal amniotic fluid index. No evidence of placenta previa. Reading Location: [facility]
[2025-02-19] MEDS: Betamethasone/Betamethasone 30 MG/5 ML Vial 12 MG IM (09:00)
--- NOTE | 2025-02-19 17:49 | OB.TRI.PN_ITS ---
Progress Notes Date of Service: 02/19/25 Progress Note: Patient presents for triage evaluation secondary to vaginal bleeding at 33.3 weeks at home with wiping. Had vaginal exam yesterday in the office. Urine and culture was collected at appointment. FHT: 130 Moderate variability reactive no decelerations category I tracing [place]: rare Contractions Assessment and plan: US reassuring, Reactive NST, celestone IM- repeat in 24 hours, No additional bleeding noted, reassuring maternal and status patient discharged to home to follow-up tomorrow for 2nd dose of celestone and next week in office . See problem list details for additional plan information. Charges/Coding Multi Select Codes Urinary/Genital Urinary/Genital CPT Codes: 59977-69 non-stress test Interp Assessment & Plan (1) Vaginal bleeding during : PLAN: Reassuring NST and US Celestone x2 No additonal bleeding noted. D/C home (2) Anemia in preg-unspec: QUALIFIERS: Trimester: third trimester Qualified Code(s): O99.013 - Anemia complicating , third trimester (3) affected by growth restriction: COMMENT: growth US 7%- [facility] referral for fu growth scan. due date changed 04/06/25 on 01/20. (4) Chlamydia infection during : COMMENT: 08/26/24 azithromycin sent; 10/22/24 rpt culture:negative (5) Family history of hemochromatosis: COMMENT: Pt tested and is NEGATIVE (6) Vegetarian diet: COMMENT: x8 years - recently started eating some meat since (7) Obesity affecting : QUALIFIERS: Trimester: second trimester Obesity type affecting : unspecified obesity Qualified Code(s): O99.212 - Obesity complicating , second trimester COMMENT: BMI 30.4, HgBA1C normal (8) H/O miscarriage, currently : COMMENT: January 2024 (9) Supervision of high-risk : QUALIFIERS: Trimester: third trimester Qualified Code(s): O09.93 - Supervision of high risk , unspecified, third trimester COMMENT: PRR , ITZEL 04/06/25, : Otoniel (10) : QUALIFIERS: Weeks of gestation: 33 weeks Qualified Code(s): Z3A.33 - 33 weeks gestation of COMMENT: NIPT low risk, Choroid plexus cysts.
== END 2025-02-19 10:08 | disposition home or self-care (01) ==
LOC: WPOUT 07:01 → WP 07:01
PROVIDERS: PCP Nurse Practitioner Family; Referring Provider Obstetrics & Gynecology; Visit Provider Obstetrics & Gynecology
DX: O46.93 Antepartum hemorrhage, unspecified, third trimester (principal); Z3A.33 33 weeks gestation of pregnancy; O99.013 Anemia complicating pregnancy, third trimester; O99.213 Obesity complicating pregnancy, third trimester
CPT/HCPCS: 59025; 59050; 76815; 96372; 99221; G0378; J0702

== ENCOUNTER 2025-02-20 08:52 | Outpatient (CLI) | payer OTHER, SELFPAY ==
[2025-02-20 09:11] VITALS: BMI 35.7
[2025-02-20] MEDS: Betamethasone/Betamethasone 30 MG/5 ML Vial 12 MG IM (09:41)
--- OUTSIDE RECORDS SUMMARY | 2025-02-20 11:10 | XMS RPT_ITS | CCD ---
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 Radha Peters MD Attending Provider Dr. Radha Peters MD Referring Provider [phone] Faith Wall RN Attending Provider UnavailElle Hernandez CNM Attending Provider Reading MD PHYSICIAN DERMATOLOGIST-C, Chioma Attending Provider Reading MD PHYSICIAN DERMATOLOGIST-C, Chioma Referring Provider Flower MD PHYSICIAN DERMATOLOGIST-C, Minerva D Primary Care Provider Flower MD PHYSICIAN DERMATOLOGIST-C, Minerva D Referring Provider Dr. Radha Peters MD Attending Provider [phone] Dr. Radha Peters MD Referring Provider [phone] Dr. Calin Solomon DO Attending Provider Dr. Calin Solomon DO Referring Provider Elle Poe CNM Attending Provider NO PRIMARY CARE, Primary Care Unavailable CALIN BENÍTEZ Referring Unavailab CALIN Frost Attending Unavailab Amber Alejandra CNM Attending Provider [phone] Flower MD PHYSICIAN DERMATOLOGIST-C, Minerva D Primary Care Provider Flower MD PHYSICIAN DERMATOLOGIST-C, Minerva D Referring Provider Fran GARCIA, Dr. Garcia Attending Provider Flower, Minerva D Primary Care Unavailable Elle Poe Attending Unavailable Flower, Minerva D Referring Unavailable Faith Wall Attending Unavailable Flower, Minerva D Primary Care Unavailable Flower, Minerva D Primary Care Unavailable Flower, Minerva D Referring Unavailable Gian, Molly Attending Unavailable Vande VeldeCalin Attending Unavailabl e Flower, Minerva D Primary Care Unavailable Flower, Minerva D Referring Unavailable Vande VeldeCalin Attending Unavailabl e Flower, Minerva D Primary Care Unavailable Flower, Minerva D Referring Unavailable Flower, Minerva D Primary Care Unavailable Flower, Minerva D Referring Unavailable Marcanthony, Radha Attending Unavailable Flower, Minerva D Primary Care Unavailable Marcanthony, Radha Attending Unavailable Flower, Minerva D Referring Unavailable Flower, Minerva D Primary Care Unavailable BarakanthonyRadha Referring Unavailable Marcanthony, Radha Attending Unavailable Flower, Minerva D Primary Care Unavailable Marcanthony, Radha Referring Unavailable Marcanthony, Radha Attending Unavailable Flower, Minerva D Primary Care Unavailable Flower, Minerva D Referring Unavailable Elle Poe Attending Unavailable Flower, Minerva D Primary Care Unavailable Chioma Springer Referring Unavailable Gian, Molly Attending Unavailable Flower, Minerva D Primary Care Unavailable MarcanthonyRadha Attending Unavailable MarcanthonyRadha Referring Unavailable Calin Solomon Referring Unavailabl e Calin Solomon Attending Unavailabl e Flower, Minerva D Primary Care Unavailable Flower, Minerva D Primary Care Unavailable Marcanthony, Radha Referring Unavailable Marcanthony, Radha Attending Unavailable Flower, Minerva D Primary Care Unavailable ReadingChioma manzo Attending Unavailable Calin Solomon Referring Unavailabl e Jeremias VelCalin schneider Attending Unavailabl e
--- NOTE | 2025-02-21 20:27 | OB.TRI.HP_ITS ---
HPI - General General Date of Service: 02/20/25 HPI Narrative MADDIE GABRIEL, is a 24 F who presents at 33.4 for celestone injection Maternal Data Information ITZEL Calculator Estimated Delivery Date Method Current WG Current Estimate 04/06/25 Ultrasound #1 33w 5d Other Estimates 03/30/25 LMP (Certain) 34w 5d PFSH PFSH Medical History Spontaneous Home Medications ?Medication ?Instructions ?Recorded ?Last Taken ?Type ferrous sulfate 137 mg (45 mg 137 mg PO QDAY 02/03/25 02/18/25 21:00 History iron) tablet,extended release (Slow Fe) famotidine 20 mg tablet (Pepcid AC) 20 mg PO BID 02/1802/18/25 19:00 History PNV 153-FA 400 mcg-om3 35 mg-dha 1 tab PO DAILY pregna ncy 02/19/25 02/18/25 08:00 History 25 mg-epa 5 mg-fish oil chew 1 TAB tablet ( Gummies) Allergy/AdvReac Type Severity Reaction Status Date / Time No Known Allergies Allergy Verified 02/20/25 09:01 Family History Grandmother Cancer Lung-Maternal Aunt Cancer Pancreatic- Maternal Social History adopted: No household members: spouse current occupational status: employed 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 current occupational exposures/hazards: No pets and animals: Yes ( taking care of litterbox) pets and animals: cat(s) and fish history of recent travel: No sexually active: Yes Smoking Status: Never smoker alcohol intake: current alcohol intake frequency: holidays/special occasions only details: None while substance use type: former substance user Date of last use: Age 16 experimented and marijuana diet: other well-balanced diet: daily or most days caffeine: No eating out: 1-3 times/week during the past year weight has: remained stable what type of physical activity do you participate in: none seatbelt use: always do you feel safe at home: Yes additional social history: : 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 Date Name GA/Weeks Outcome Route Bth Weight Infant Gen Labor Lgth Anesthesia Del Willie Provider FOB 01/09/24 5 spontaneous Visit Details Expected Delivery Route/Plan Labor Preferences- CB/BF classes: encouraged labor support person: Otoniel labor intervention preferences: [] pain management options preferred: limited! cut cord/dad catch: yes : yes PP control planned: discussed discussed possible routes of delivery and associated risks: [] special requests: [] Plans Covid status: [] Flu vaccine: [] Tdap vaccine: declined Rhogam: na LARC form signed: yes Problem list reviewed and updated with the most current plan of care details and appropriate orders placed. Relevant counseling for the gestational age provided. Continue routine care and follow up unless otherwise noted in visit notes/problem list details OB Flowsheet Initial Weight: 166 lb Date -?-?-?-?-?-?-?-?-?-?-?-?- EGA Weight BP Urine Prot -?-?-?-?-?-?-?-?-?-?-?-?- Glucose FHR FuHt Pres Dilation -?-?-?-?-?-?-?-?-?-?-?-?- Effaced St Visit Note 08/22/24 -?-?-?-?-?-?-?-?-?-?-?-?- 7w 4d 120 lb (-46 lb) 120/86 -?-?-?-?-?-?-?-?-?-?-?-?- 153 -?-?-?-?-?-?-?-?-?-?-?-?- KW- CRL cons wit h dates. declines NIPT. has US appt after today. declined pap today. 09/23/24 -?-?-?-?-?-?-?-?-?-?-?-?- 12w 1d 167 lb (+16 oz) 119/81 Negative -?-?-?-?-?-?-?-?-?-?-?-?- Negative 150 -?-?-?-?-?-?-?-?-?-?-?-?- SM- no vb crampi ng 10/22/24 -?-?-?-?-?-?-?-?-?-?-?-?- 16w 2d 172 lb 4 oz (+6 lb 4 oz) 118/74 Negative -?-?-?-?-?-?-?-?-?-?-?-?- Negative 145 -?-?-?-?-?-?-?-?-?-?-?-?- MH-No VB. No FM yet. Anatomy US 11/10. Urine GCC today 11/18/24 -?-?-?-?-?-?-?--?-?-?-?-?- 20w 1d 177 lb 2 oz (+11 lb 2 oz) 114/72 Negative -?-?-?-?-?-?-?-?-?-?-?-?- Negative 147 -?-?-?-?-?-?-?-?-?-?-?-?- MH-No VB. Nausea improved. Good FM. 12/18/24 -?-?-?-?-?-?-?-?-?-?-?-?- 24w 3d 181 lb 6 oz (+15 lb 6 oz) 112/77 Negative -?-?-?-?-?-?-?-?-?-?-?-?- Negative 145 -?-?-?-?-?-?-?-?-?-?-?-?- JV- no lof, vagi nal bleeding, or dec fm. no complaints. 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 ultrasound ordered. 01/06/25 -?-?-?-?-?-?-?-?-?-?-?-?- 27w 1d 188 lb 6 oz (+22 lb 6 oz) 131/86 Negative -?-?-?-?-?-?-?-?-?-?-?-?- Negative 150 28 -?-?-?-?-?-?-?-?-?-?-?-?- kw- no vb/lof/ct x. good fm. glucose today. tdap and larc declined 01/20/25 -?-?-?-?-?-?-?-?-?-?-?-?- 29w 1d 190 lb (+24 lb) 115/75 Negative -?-?-?-?-?-?-?-?-?-?-?-?- Negative 134 30 -?-?-?-?-?-?-?-?-?-?-?-?- LC- no vb/ctx/lo f. good fm. neg glucola. LC- no vb/ctx/lof. good fm. neg glucola. chart reviewed. MFM growth normal, due date should be 04/06/2025 based on 1st trimester us. cw SM agrees with due date change. pt informed of new due date of 04/06/2025 02/03/25 -?-?-?-?-?-?-?-?-?-?-?-?- 31w 1d 193 lb 6 oz (+27 lb 6 oz) 108/80 Negative -?-?-?-?-?-?-?-?-?-?-?-?- Negative 142 32 -?-?-?-?-?-?-?-?-?-?-?-?- MH-No Vb, LOF. G ood FM. rpt CBC today. 02/18/25 -?-?-?-?-?-?-?-?-?-?-?-?- 33w 2d 196 lb (+30 lb) 113/76 Negative -?-?-?-?-?-?-?-?-?-?-?-?- Negative 143 32 0 -?-?-?-?-?-?-?-?-?-?-?-?- JV- pt complains of cramping that is getting worse over the last couple of days. on exam there is some thick white discahrge, no odor, no fluid, or bleeding. cx closed. red top collected. collecting UA and culture. NST FHR Rate Baby A Baseline: 135 Variability:: Moderate Accelerations:: 15 x 15 Decelerations:: None NST Reactive:: Yes FHR Category:: Category I Assessment & Plan (1) Vaginal bleeding during : COMMENT: second dose of celestone adminstered. PLAN: Patient presents for triage evaluation secondary to celestone injection FHT: Moderate variability reactive no decelerations category I tracing [place]: no Contractions Assessment and plan: Reactive NST, reassuring maternal and status patient discharged to home to follow-up . See problem list details for additional plan information. Charges/Coding Procedures Urinary/Genital 52xxx-59xxx: 76547-30 non-stress test Interp
== END 2025-02-20 09:45 | disposition home or self-care (01) ==
LOC: WPOUT 08:53 → WP 08:53
PROVIDERS: PCP Nurse Practitioner Family; Referring Provider Registered Nurse; Visit Provider Registered Nurse
DX: O46.93 Antepartum hemorrhage, unspecified, third trimester (principal); Z3A.33 33 weeks gestation of pregnancy; Z79.899 Other long term (current) drug therapy
CPT/HCPCS: 96372; 99221; G0378; J0702

== ENCOUNTER 2025-02-26 16:07 | Outpatient (CLI) | payer OTHER, SELFPAY ==
[2025-02-26 16:25] VITALS: BMI 35.5
[2025-02-26 16:37] VITALS: BP 112/74; PULSE 95; RESP 16; TEMP 36.6
--- OUTSIDE RECORDS SUMMARY | 2025-02-26 17:58 | XMS RPT_ITS | CCD ---
Author Organization [facility] Care Team Providers Care Mobile Solutions Architect Name Role Phone Free, Text Entry Unavailable Unavailable [place]oom[place], Verona I Unavailable Unavailable Flower DATA ANALYSIS MANAGER-FABRIC AWNING REPAIRER, Minerva D Primary Care Provider [phone] FLOWER, MINERVA D Primary Care Unavailable FLOWER, MINERVA D Primary Care Unavailable FLOWER, MINERVA D Primary Care Unavailable FLOWER, MINERVA D Attending Unavailable FLOWER, MINERVA D Primary Care Unavailable FLOWER, MINERVA D Attending Unavailable FLOWER, MINERVA D Primary Care Unavailable FLOWER, MINERVA D Attending Unavailable FLOWER, MINERVA D Primary Care Unavailable FLOWER, MINERVA D Primary Care Unavailable BILL ANDRES Referring Unavailable Flower METAL BUGGY OPERATOR-C, Minerva D Primary Care Provider Flower METAL BUGGY OPERATOR-C, Minerva D Referring Provider Dr. Radha Peters MD Attending Provider Dr. Radha Peters MD Referring Provider Faith Wall RN Attending Provider UnavailElle Hernandez CNM Attending Provider [place] METAL BUGGY OPERATOR-C, Chioma Attending Provider [place] METAL BUGGY OPERATOR-C, Chioma Referring Provider [phone] Flower METAL BUGGY OPERATOR-C, Minerva D Primary Care Provider Flower METAL BUGGY OPERATOR-C, Minerva D Referring Provider Dr. Radha Peters MD Attending Provider [phone] Dr. Radha Peters MD Referring Provider [phone] Dr. María Elena Solomon DO Attending Provider Dr. María Elena Solomon DO Referring Provider Elle Poe CNM Attending Provider NO PRIMARY CARE, Primary Care Unavailable MARÍA ELENA CROFT Referring Unavailab MARÍA ELENA Frost Attending Unavailab alfredo Dyer CNShaun, Amber Attending Provider Flower METAL BUGGY OPERATOR-C, Minerva D Primary Care Provider Flower METAL BUGGY OPERATOR-C, Minerva D Referring Provider [phone] Fran GARCIA, Dr. Garcia Attending Provider Flower METAL BUGGY OPERATOR-C, Minerva D Primary Care Provider Flower METAL BUGGY OPERATOR-C, Minerva D Referring Provider Gian METAL BUGGY OPERATOR-C, Chioma Attending Provider Jeremias Hodge DO, Dr. Ring Other Provider Gomez BALES, Amber Referring Provider Flower, Minerva D Primary Care Unavailable Chioma Springer Referring Unavailable Chioma Springer Attending Unavailable Flower, Minerva D Primary Care Unavailable Flower, Minerva D Referring Unavailable Radha Peters Attending Unavailable María Elena Solomon Consulting Unavailabl e Flower, Minerva D Primary Care Unavailable María Elena Solomon Referring Unavailabl Elle Yanez Attending Unavailable Flower, Minerva D Primary Care Unavailable Radha Peters Referring Unavailable Radha Peters Attending Unavailable Flower, Minerva D Primary Care Unavailable María Elena Solomon Attending Unavailabl e Flower, Minerva D Primary Care Unavailable María Elena Solomon Referring Unavailabl e María Elena Solomon Attending Unavailabl e Flower, Minerva D Primary Care Unavailable Flower, Minerva D Referring Unavailable Elle Poe Attending Unavailable Flower, Minerva D Primary Care Unavailable Flower, Minerva D Referring Unavailable María Elena Solomon Attending Unavailabl Amber Valentin Consulting Unavailable Flower, Minerva D Primary Care Unavailable DyerAmber Referring Unavailable DyerAmber Attending Unavailable Flower, Minerva D Primary Care Unavailable Faith Wall Attending Unavailable [place] Attending Unavailable Flower, Minerva D Primary Care Unavailable Flower, Minerva D Referring Unavailable DyerAmber Attending Unavailable Flower, Minerva D Primary Care Unavailable Flower, Minerva D Referring Unavailable Flower, Minerva D Primary Care Unavailable Flower, Minerva D Referring Unavailable IganChioma Attending Unavailable Flower, Minerva D Primary Care Unavailable Flower, Minerva D Referring Unavailable MarcanthonyRadha Attending Unavailable Flower, Minerva D Primary Care Unavailable Marcanthony, Radha Referring Unavailable Marcanthony, Radha Attending Unavailable Flower, Minerva D Primary Care Unavailable Marcanthony, Radha Referring Unavailable Marcanthony, Radha Attending Unavailable Flower, Minerva D Primary Care Unavailable GianChioma Attending Unavailable Flower, Minerva D Primary Care Unavailable Benjie María Elena Hodge Referring Unavailabl e Vande Velde, María Elena Attending Unavailabl e Flower, Minerva D Primary Care Unavailable Flower, Minerva D Referring Unavailable MarcanthonyRadha Attending Unavailable Flower, Minerva D Primary Care Unavailable Amber Dyer Referring Unavailable DyerAmber Attending Unavailable Flower, Minerva D Primary Care Unavailable Vande María Elena Hodge Referring Unavailabl e Benjie Veljennei, María Elena Attending Unavailabl e Flower, Minerva D Primary Care Unavailable Flower, Minerva D Referring Unavailable [place] Attending Unavailable Flower, Minerva D Primary Care Unavailable Flower, Minerva D Referring Unavailable Vande VeldeMaría Elena Attending Unavailabl e Flower, Minerva D Primary Care Unavailable Flower, Minerva D Referring Unavailable Elle Poe Attending Unavailable Flower, Minerva D Primary Care Unavailable MarcanthonyRadha Referring Unavailable Radha Peters Attending Unavailable Amber Dyer CNM Other Provider [phone] Allergies Allergy Classification Reported Allergen(s) Allergy Type Date of Onset Reaction(s) Facility (5 sources) strawberry allergenic extract; Translations: [STRAWBERRY] Drug Allergy 05-30-2023 Unknown [facility] Medications Current Medications Medication Drug Class(es) Dates [...] daily. 90 tablet 3 07/29/2024 07/29/2025 Active famotidine 20 mg oral tablet (5 sources) Histamine-2 Receptor Antagonist Start: 02-18-2025 take 1 tablet by mouth twice daily before mealtime Famotidine (Pepcid Ac) 20 mg tablet Active 20 mg PO TWICE A DAY February 18, 2025 12:00am 24 hr ferrous sulfate 142 mg extended release oral tablet (11 sources) Start: 02-03-2025 take 1 tablet by [...] Ordered: 30-Nov-2021 Gertrude Mccloud Generic Substitution Allowed Multivitamin preparation (1 source) take 1 tablet by mouth once daily Multiple Vitamins oral tablet, chewable ; 1 tab(s) orally once a day Quantity: 0 Refills: 0 Ordered: 30-Nov-2021 Rogers, Gertrude Generic Substitution Allowed Pnv No.686-Bv-Zd6-Dha-Ep a-Fish ( Gummies) 400 mcg-35 mg- 25 mg-5 mg tablet,chewable (4 sources) Start: Pnv No.259-Bi-Hm6-Dha-Ep a-Fish ( Gummies) 400 mcg-35 mg- 25 mg-5 mg tablet,chewable Active 1 {tbl} PO DAILY February 19, 2025 12:00am PNV no.95/ferrous fum/folic ac ( MULTIVITAMINS ORAL) (2 sources) take 1 capsule by mouth once daily before mealtime PNV no.95/ferrous fum/folic ac ( MULTIVITAMINS ORAL) Take 1 capsule by mouth once daily. Active vitamin b12 1 mg/ml injectable solution (1 source) Vitamin B12 Start: cyanocobalamin (Vitamin B-12) injection 1,000 mcg Start: 07-29-2024 cyanocobalamin (Vitamin B-12) injection 1,000 mcg Completed/Discontinued Medications Medication Drug Class(es) Dates Sig (Normalized) Sig (Original) azithromycin 500 mg oral tablet (11 sources) Macrolide Antimicrobial Start: 08-26-2024 End: 10-22-2024 take 1 tablet by mouth once Azithromycin (Zithromax) 500 mg tablet Discontinued 1000 mg PO ONCE 2 August 26, 2024 1:00am October 22, 2024 3:29pm administer on day 1 of therapy docosahexaenoic acid 200 mg oral capsule (11 sources) Start: 08-15-2024 End: 02-20-2025 take 1 capsule by mouth once daily Docosahexaenoic Acid ( Dha) 200 mg capsule Discontinued 200 mg PO DAILY August 15, 2024 1:00am February 20, 2025 9:11am On Hold: Order Changed ergocalciferol 1.25 mg oral capsule (14 sources) Provitamin D2 Compound Start: 01-27-2024 End: 02-20-2025 Ergocalciferol (Vitamin D2) (Drisdol) 1,250 mcg (50,000 unit) capsule Discontinued 1250 ug PO EVERY WEEK January 27, 2024 12:00am February 20, 2025 9:09am Start: 05-30-2023 End: 07-29-2024 take 1 capsule by mouth every week ergocalciferol (Vitamin D-2) 1.25 MG (82548 UT) capsule Indications: Vitamin D deficiency Take 1 capsule (50,000 Units) by mouth 1 (one) time per week. 13 capsule 3 10/30/2023 07/29/2024 Discontinued (Therapy completed) Mecobalamin (Vitamin B12) 10,000 mcg recon soln (11 sources) Start: 08-15-2024 End: 02-20-2025 Mecobalamin (Vitamin B12) 10 ,000 mcg recon soln Discontinued ug IM MONTHLY August 15, 2024 1:00am February 20, 2025 9:10am Start: 08-15-2024 Mecobalamin (V itamin B12) 10,000 mcg recon soln Active ug IM MONTHLY August 15, 2024 1:00am ondansetron 4 mg disintegrating oral tablet (11 sources) Serotonin-3 Receptor Antagonist Start: 08-09-2024 End: 02-20-2025 take 1 tablet by mouth every six hours as needed for nausea and vomiting Ondansetron 4 mg tablet,disintegrating Discontinued 4 mg PO EVERY 6 HOURS as needed for nausea and vomiting August 09, 2024 1:00am February 20, 2025 9:10am Pnv Cmb#95-Ferrous Fumarate-Fa () 28 mg iron- 800 mcg tablet (11 sources) Start: 01-27-2024 End: 02-13-2024 Pnv Cmb#95-Ferrous Fumarate-Fa () 28 mg iron- 800 mcg tablet Discontinued 1 {tbl} PO DAILY January 27, 2024 12:00am February 13, 2024 11:48am Problems Active Problems Problem Classification Problem Date Documented Da te Episodic/Chronic Abdominal pain (3 sources) Abdominal pain; Translations: [Periumbilical pain] 11-30-2021 Episodic Comment on above: ABD PAIN Bacterial infection; unspecified site (2 sources) Chlamydial infection, unspecified; Translations: [Chlamydial infection, unspecified] Onset: 02-20-2025 Episodic Deficiency and other anemia (1 source) Anemia, unspecified; Translations: [Anemia, unspecified] Onset: 02-06-2025 Episodic Diseases of white blood cells (5 sources) Leukocytosis; Translations: [Elevated white blood cell count, unspecified] Onset: 07-29-2024 07-29-2024 Chronic Early or threatened labor (2 sources) False labor before 37 completed weeks of gestation, unspecified trimester; Translations: [False labor before 37 completed weeks of gestation, unspecified trimester] Onset: 02-19-2025 Episodic Hemorrhage during ; abruptio placenta; placenta previa (20 sources) Antepartum hemorrhage; Translations: [Hemorrhage in early , unspecified] Onset: 09-23-2024 02-13-2024 Episodic Comment on above: viable 3.8mm CRL wit h FHT present, separat 14 mm structure in the GS seen separate from pole and yolk sac, unclear significance, formal scan ordered for new OB visit next week second dose of emmie tone adminstered. Malposition; malpresentation (2 sources) Breech presentation; Translations: [Maternal care for breech presentation, not applicable or unspecified] 02-23-2025 Episodic Menstrual disorders (5 sources) Amenorrhea; Translations: [Amenorrhea, unspecified] Onset: 07-25-2024 07-25-2024 Chronic Nutritional deficiencies (9 sources) Vitamin D deficiency; Translations: [Vitamin D deficiency, unspecified] Onset: 05-30-2023 05-30-2023 Chronic Nutritional deficiencies (9 sources) Iron deficiency; Translations: [Iron deficiency] Onset: 05-30-2023 Resolved: 10-19-2023 05-30-2023 Episodic Other complications of ; puerperium affecting management of mother (20 sources) choroid plexus cyst; Translations: [Choroid plexus cyst of fetus in heredia ] 12-18-2024 Episodic Comment on above: negative on repeat s can. Other complications of (20 sources) Maternal obesity complicating , childbirth and the puerperium, antepartum; Translations: [Obesity complicating , unspecified trimester] 10-22-2024 Chronic Comment on above: BMI 30.4, HgBA1C nor mal Other complications of (20 sources) Anemia of ; Translations: [Anemia complicating , unspecified trimester] 02-03-2025 Chronic Other complications of (2 sources) Anemia complicating , third trimester; Translations: [Anemia complicating , third trimester] Onset: 02-20-2025 Chronic Other complications of (2 sources) Obesity complicating , second trimester; Translations: [Obesity complicating , second trimester] Onset: 02-20-2025 Chronic Other complications of (1 source) Obesity complicating , unspecified trimester; Translations: [Obesity complicating , unspecified trimester] Onset: 09-25-2024 Chronic Other complications of (11 sources) Left lower quadrant pain; Translations: [Other [...] sent; 10/22/24 rpt culture:negative Other complications of (20 sources) Disorder of ; Translations: [Maternal care for other known or suspected poor growth, unspecified trimester, not applicable or unspecified] 01-12-2025 Episodic Comment on above: growth US 7%- MFM re ferral for fu growth scan growth US 7%- MFM re ferral for fu growth scan. due date changed 04/06/25 on 01/20. Other complications of (2 sources) Maternal care for other known or suspected poor growth, unspecified trimester, not applicable or unspecified; Translations: [Maternal care for other known or suspected poor growth, unspecified trimester, not applicable or unspecified] Onset: 02-20-2025 Episodic Other complications of (2 sources) Other maternal infectious and parasitic diseases complicating , unspecified trimester; Translations: [Other maternal infectious and parasitic diseases complicating , unspecified trimester] Onset: 02-20-2025 Episodic Other complications of (2 sources) Supervision of with other poor reproductive or obstetric history, unspecified trimester; Translations: [Supervision of with other poor reproductive or obstetric history, unspecified trimester] Onset: 02-20-2025 Episodic Other complications of (2 sources) Supervision of high risk , unspecified, third trimester; Translations: [Supervision of high risk , unspecified, third trimester] Onset: 02-20-2025 Episodic Other complications of (1 source) Supervision of high risk , unspecified, second trimester; Translations: [Supervision of high risk , unspecified, second trimester] Onset: 01-14-2025 Episodic Other female genital disorders (11 sources) Vaginal bleeding; Translations: [Abnormal uterine and [...] eating some meat since Residual codes; unclassified (2 sources) Family history of other endocrine, nutritional and metabolic diseases; Translations: [Family history of other endocrine, nutritional and metabolic diseases] Onset: 02-20-2025 Episodic Residual codes; unclassified (2 sources) Other specified health status; Translations: [Other specified health status] Onset: 02-20-2025 Episodic Residual codes; unclassified (2 sources) 33 weeks gestation of ; Translations: [33 weeks gestation of ] Onset: 02-20-2025 Episodic Residual codes; unclassified (1 source) 31 weeks gestation of ; Translations: [31 weeks gestation of ] Onset: 02-03-2025 Episodic Residual codes; unclassified (1 source) 28 weeks gestation of ; Translations: [28 weeks gestation of ] Onset: 01-06-2025 Episodic Spontaneous (11 sources) Miscarriage; Translations: [Complete or unspecified spontaneous [...] deficiency anemia, unspecified] Onset: 05-30-2023 Episodic Other complications of (1 source) Supervision of high risk , unspecified, unspecified trimester; Translations: [Supervision of high risk , unspecified, unspecified trimester] Onset: 11-21-2024 Episodic Other upper respiratory infections (4 sources) Pharyngitis; Translations: [Acute pharyngitis, unspecified] Onset: 07-05-2023 Resolved: 10-19-2023 07-05-2023 Episodic Residual codes; unclassified (1 source) 13 weeks gestation of ; Translations: [13 weeks gestation of ] Onset: 09-23-2024 Episodic Residual codes; unclassified (1 source) 8 weeks gestation of ; Translations: [8 weeks gestation of ] Onset: 08-22-2024 Episodic Unclassified (3 sources) Onset: 07-05-2023 Resolved: 07-29-2024 07-05-2023 Results Test Name Value Interpretation Reference Range Facility OB Triage Physician Noteon 0 02-21-2025 OB Triage Physician Note [facility] Medical Records Department [address] [place] [address] OB Triage Physician Note 02/21/252026 MR#: [id number] Acct: [id number] Name: MADDIE TORRE Rep #: [id number] : 2000 24 From: Amber Dyer CNM PCP: SERGE QuinterosC Status:DEP I Y Location: [facility] HPI - General General Date of Service: 02/20/25 HPI Narrative MADDIE TORRE, is a 24 F who presents at 33.4 for celestone injection Maternal Data Information ITZEL Calculator Estimated Delivery Date Method Current WG Current Estimate 04/06/25 Ultrasound #1 33w 5d Other Estimates 03/30/25 LMP (Certain) 34w 5d PFSH PFSH Medical History Spontaneous Home Medications ???Medication ???Instructions ???Recorded ???Last Taken ???Type ferrous sulfate 137 mg (45 mg 137 mg PO QDAY 02/03/25 02/18/25 2 1:00 History iron) tablet,extended release (Slow Fe) famotidine 20 mg tablet (Pepcid AC) 20 mg PO BID 02/18/25 02/18/25 19:00 History PNV 153-FA 400 mcg-om3 35 mg-dha 1 tab PO DAILY 02/19/25 02/18/25 08:00 History 25 mg-epa 5 mg-fish oil chew 1 TAB tablet ( Gummies) Allergy/AdvReac Type Severity Reaction Status Date / Time No Known Allergies Allergy Verified 02/20/25 09:01 Family History Grandmother Cancer Lung-Maternal Aunt Cancer Pancreatic- Maternal Social History adopted: No household members: spouse 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 Date Name GA/Weeks Outcome Route Bth Weight Gen Labor Lgth Anesthesia Del Harrisonaudra Provider FOB 01/09/24 5 spontaneous Visit Details Expected Delivery Route/Plan Labor Preferences- CB/BF classes: encouraged labor support person: Otoniel labor intervention preferences: [] pain management options preferred: limited! cut cord/dad catch: yes : yes PP control planned: discussed discussed possible routes of delivery and associated risks: [] special requests: [] Plans Covid status: [] Flu vaccine: [] Tdap vaccine: declined Rhogam: na LARC form signed: yes Problem list reviewed and updated with the most current plan of care details and appropriate orders placed. Relevant counseling for the gestational age provided. Continue routine care and follow up unless otherwise noted in visit notes/problem list details OB Flowsheet Initial Weight: 166 lb Date -???-???-???-???-???-?? ?-???-???-???-???-???-? [...] oz (+6 lb 4 oz) 118/74 Negative -???-???-???-???-???-?? ?-???-???-???-???-???-? ??- Negative 145 -???-???-???-???-???-?? ?-???-???-???-???-???-? ??- MH-No VB. No FM yet. Anatomy US 11/10. Urine GCC today 11/18/24 -???-???-???-???-???-?? ?-???-???-???-???-???-? ??- 20w 1d 177 lb 2 oz (+11 lb 2 oz) 114/72 Negative -???-???-???-???-???-?? ?-???-???-???-???-???-? ??- Ne (more content not included)... Normal [facility] Genital Culture Comprehensiv vonda 02-20-2025 VAC Reason for Exam: contractions Normal vaginal zheng isolated. No yeast, Gardnerella, Neisseria or beta-hemolytic Streptococcus isolated. Normal [facility] Comment on above: Performed By: #### M 100.2000, M100.3200 #### [facility] [address] [place], [place], [id number] Urine Cultureon 02-20-2025 URC Below infection leve l. Mixed Gram Positive Organisms Beeler Count <1000 MIXC Mixed contaminants. Submit a new specimen if indicated. Normal [facility] Comment on above: Performed By: #### M 100.2200 #### [facility] [address] [place], [place], [address] OB Limited (No Biometrics)on 02-19-2025 OB Limited (No Biometrics) [facility] Imaging Services [address] [place], [place] [id number] OB Limited (No Biometrics) MR#: [id number] Acct: [id number] Name: MADDIE TORRE Rep #: [id number] : 2000 F 24 From: Franklyn danielle MD PCP: AMEE Quinteros Status: REG CLI Study: OB Limited (No Biometrics) Date of Exam: 02/19 Exam# [id number] Ordering Dr: Elle Poe CNM PROCEDURE: OB LIMITED (NO BIOMETRICS) 02/19/2025 REASON FOR EXAM: EDITH AND PLACENTA TECHNIQUE: High resolution obstetric ultrasound performed using a 2D transducer. Standard views obtained, including biometry, anatomy survey, and Doppler studies. COMPARISON: Prior study dated January 08, 2025. FINDINGS Number: 1 Position: Breech Placental Position: Anterior and right lateral. Not low-lying. Placental Abnormalities: No evidence of previa. ESTIMATED GESTATIONAL AGE: Baseline: 33 weeks and 3 days ESTIMATED DATE OF DELIVERY: Baseline: April 06, 2025 BIOPHYSICAL ASSESSMENT: Amniotic Fluid Volume: 5.6 cm Amniotic Fluid Index: 12.3 (8-24 cm normal range) Cardiac Motion: 136 beats per minute (average) Trunk and Limb Motion: Present. MATERNAL ANATOMY: Adnexa: Neither maternal ovary is successfully identified. US/OB Limited (No Biometrics) IMPRESSION: Normal amniotic fluid index. No evidence of placenta previa. [facility] CC: AMAIRANI Poe; METAL BUGGY OPERATOR-C Minerva Flower Coil Wrapper: Signed Normal [facility] OB Triage Progress Noteon OB Triage Progress Note [facility] Medical Records Department [address] [place] [address] OB Triage Progress Note 02/19/25 1749 MR#: [id number] Acct: [id number] Name: MADDIE TORRE Rep #: [id number] : 2000 24 From: Elle Poe CNM PCP: Minerva Flower METAL BUGGY OPERATOR-C Status:DEP CLI Y DOS: Location: [facility] Progress Notes Date of Service: 02/19/25 Progress Note: Patient presents for triage evaluation secondary to vaginal bleeding at 33.3 weeks at home with wiping. Had vaginal exam yesterday in the office. Urine and culture was collected at appointment. FHT: 130 Moderate variability reactive no decelerations category I tracing [place]: rare Contractions Assessment and plan: US reassuring, Reactive NST, celestone IM- repeat in 24 hours, No additional bleeding noted, reassuring maternal and status patient discharged to home to follow-up tomorrow for 2nd dose of celestone and next week in office . See problem list details for additional plan information. Charges/Coding Multi Select Codes Urinary/Genital Urinary/Genital CPT Codes: 41146-97 non-stress test Interp Assessment Plan (1) Vaginal bleeding during : PLAN: Reassuring NST and US Celestone x2 No additonal bleeding noted. D/C home (2) Anemia in preg-unspec: QUALIFIERS: Trimester: third trimester Qualified Code(s): O99.013 - Anemia complicating , third trimester (3) affected by growth restriction: COMMENT: growth US 7%- [facility] referral for fu growth scan. due date changed 04/06/25 on 01/20. (4) Chlamydia infection during : COMMENT: 08/26/24 azithromycin sent; 10/22/24 rpt culture:negative (5) Family history of hemochromatosis: COMMENT: Pt tested and is NEGATIVE (6) Vegetarian diet: COMMENT: x8 years - recently started eating some meat since (7) Obesity affecting : QUALIFIERS: Trimester: second trimester Obesity type affecting : unspecified obesity Qualified Code(s): O99.212 - Obesity complicating , second trimester COMMENT: BMI 30.4, HgBA1C normal (8) H/O miscarriage, currently : COMMENT: January 2024 (9) Supervision of high-risk : QUALIFIERS: Trimester: third trimester Qualified Code(s): O09.93 - Supervision of high risk , unspecified, third trimester COMMENT: PRR , ITZEL 04/06/25, : Otoniel (10) : QUALIFIERS: Weeks of gestation: 33 weeks Qualified Code(s): Z3A.33 - 33 weeks gestation of COMMENT: NIPT low risk, Choroid plexus cysts. 02/19/25 1753 Date Elle Poe CNM Cosigner Signature (if applicable): Date CC: AMAIRANI Poe; JOHANNA-C Minerva Flower Signed Normal [facility] Genital cultureOrdered By: Ba Hodge on 02-18-2025 Source specific culture Neisseria or beta-hemolytic Streptococcus isolated. [facility] Gram Stainon 02-18-2025 GS Reason for Exam: contractions Gram Stain 4+ Gram positive rods 2+ White Blood Cells No Gram negative diplococci Score = 0 Interpretation: 0-3 Normal, 4-6 Intermediate, 7-10 Positive BV Normal [facility] Comment on above: Performed By: #### M 100.2000, M100.3200 #### [facility] [address] [place] [address], [id number] Gram stainOrdered By: Wilfredo Hodge on 02-18-2025 Microscopic observation Gram stain Nom (Unsp spec) [facility] - Chemistry and C hemistry - challengeOrdered By: María Elena Hodge on 02-18-2025 Bilirubin Ql (U) Negative [facility] Glucose Ql (U) Negative [facility] Ketones Ql (U) Negative [facility] pH (U) 5.0 [pH] [facility] Specific gravity (U) [Rel density] 1.005 [facility] Urobilinogen (U) [Mass/Vol] 0.4402066 mg/dL [facility] Laboratory - Hematology and Cell countsOrdered By: María Elena Hodge on 02-18-2025 Hemoglobin Ql (U) Negative [facility] - Specimen inform ationOrdered By: María Elena Hodge on 02-18-2025 Clarity (U) Clear [facility] Color (U) Yellow [facility] - UrinalysisOrder ed By: María Elena Hodge on 02-18-2025 Nitrite Ql (U) Negative [facility] Protein Ql (U) Negative [facility] No Panel InformationOrdered By: María Elena Hodge on 02-18-2025 Urine Leukocytes Negatve [facility] Office Visit Reporton 02-18-2025 [facility] Office Visit Report [facility]'s [address], [address] [place] [address] OFFICE VISIT Date of Service: 02/18/25 MR#: [id number] Acct: [id number] Name: MADDIE TORRE Rep #: [id number] : 2000 Provider: Dr. María Elena Jama DO Age/Sex: 24/F [place] [facility] [place] Status: Signed Intake Vital Signs 09/23/24 13:32 02/03/25 13:42 02/18/25 14:08 02/18/25 14:09 Height 5 ft 2 in 5 ft 2 in 5 ft 2 in 5 ft 2 in Weight: 196 lb BMI 35.8 BP 113/76 Intake Visit Reasons: 33wk ob Salon Customer Experience Specialist Required: No Is patient in pain?: No Allergies No Known Allergies Allergy (Verified 02/18/25 14:08) Medications ???Medication ???Instructions ???Recorded ???Confirmed ???Type ergocalciferol (vitamin D2) 1,250 1,250 mcg PO QWEEK 01/27/2402/18 History mcg (50,000 unit) capsule (Drisdol) ondansetron 4 mg disintegrating 4 mg PO Q6H PRN nausea and 4 02/18/25 Rx tablet vomiting #30 tabs docosahexaenoic acid 200 mg mg PO 08/15/24 02/18/25 History capsule ( DHA) mecobalamin (vitamin B12) 10,000 mcg IM MONTHLY 08/15/24 02/18/25 H istory mcg solution for injection ferrous sulfate 137 mg (45 mg 137 mg PO QDAY 05/27/25 06/11/25 H istory iron) tablet,extended release (Slow Fe) famotidine 20 mg tablet (Pepcid AC) 20 mg PO BID 02/18/25 02/18/25 History Last Menstrual Period: 06/23/24 Zika: Zika virus screening: Negative : No PFSH PFSH Medical History Spontaneous Family History Grandmother Cancer Lung-Maternal Aunt Cancer Pancreatic- Maternal Social History adopted: No household members: spouse 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 ?-???-???-???-???-???-? ??- Negative 1 (more content not included)... Normal [facility] Urine cultureOrdered By: Denise Hodge on 02-18-2025 Bacteria identified Cx Nom (U) Positive Abnormal [facility] Absolute lymphocyte countOrd ered By: Chioma Springer on 02-03-2025 Lymphocytes Auto (Unsp spec) [#/Vol] 2.13 10*3/uL 0.83-4.51 [facility] Absolute neutrophil countOrd ered By: Chioma Springer on 02-03-2025 Neutrophils (Bld) [#/Vol] 8.7 10*3/uL High 2.0-7.7 [facility] Automated blood erythrocyte countOrdered By: Chioma Springer on 02-03-2025 RBC (Bld) [#/Vol] 3.53 10*6/uL Low 4.2-5.4 [facility] Comment on above: Performed By: #### L 100.0100 ####[facility] [address] [place], [place], [id number] Automated blood hematocrit ( percentage)Ordered By: Chioma Springer on 02-03-2025 Hematocrit (Bld) [Volume fraction] 33.0 % Low 37-47 [facility] Comment on above: Performed By: #### L 100.0100 ####[facility] [address] [place], [place], [address] Automated lymphocyte count a s percentage of total leukocytesOrdered By: Chioma Springer on 02-03-2025 Lymphocytes/100 WBC Auto (Unsp spec) 17.4 % Low 19-41 [facility] Basophil percentageOrdered B y: Chioma Gian on 02-03-2025 Basophils/100 WBC (Bld) 0.2 % 0-1 [facility] Comment on above: Performed By: #### L 100.0100 ####[facility] [address] [place], [address] CBC W/Diff, Automatedon 01-09 Absolute Lymph 2.13 X10 3/uL Normal 0.83-4.51 [facility] Comment on above: Performed By: #### L 100.0100 ####[facility] [address] [place], [address] Absolute Neut 8.7 X10 3/uL High 2.0-7.7 [facility] Comment on above: Performed By: #### L 100.0100 ####[facility] [address] [place], [address] IG% 2.000 High 0.0-0.9 [facility] Comment on above: Result Comment: IG% - Immature Granulocytes (promyelocytes, myelocytes and metamyelocytes) > 1% indicates that a LEFT SHIFT is Present. Performed By: #### L 100.0100 ####[facility] [address] [place], [address] Lymphocytes/100 WBC (Bld) 17.4 % Low 19-41 [facility] Comment on above: Performed By: #### L 100.0100 ####[facility] [address] [place], [address] Nucleated RBC (Bld) [#/Vol] 0 10*3/uL Normal 0-5 [facility] Comment on above: Performed By: #### L 100.0100 ####[facility] [address] [place], [address] RDW SD 46.7 fl High 35.1-43.9 [facility] Comment on above: Performed By: #### L 100.0100 ####[facility] [address] [place], [address] Eosinophil percentageOrdered By: Chioma Springer on 02-03-2025 Eosinophils/100 WBC (Bld) 1.1 % 0-5 [facility] Comment on above: Performed By: #### L 100.0100 ####[facility] [address] [place], [place], [address] Erythrocyte distribution wid th ratioOrdered By: Chioma Springer on 02-03-2025 Erythrocyte distribution width (RBC) [Ratio] 13.9 % 11.6-14.6 [facility] Comment on above: Performed By: #### L 100.0100 ####[facility] [address] [place], [address] Erythrocyte distribution wid th standard deviationOrdered By: Chioma Springer on 02-03-2025 Erythrocyte distribution width (RBC) [Ratio] 46.7 fl High 35.1-43.9 [facility] Hemoglobin measurementOrdere d By: Chioma Springer on 02-03-2025 Hemoglobin (Bld) [Mass/Vol] 10.8 g/dL Low 12.0-15.0 [facility] Comment on above: Performed By: #### L 100.0100 ####[facility] [address] [place], [address] Immature granulocytes/100 WB C Auto (Bld)Ordered By: Chioma Springer on 02-03-2025 Immature granulocytes/100 WBC (Bld) 2.000 % High 0.0-0.9 [facility] Comment on above: IG% - Immature Granu locytes (promyelocytes, myelocytes and metamyelocytes) > 1% indicates that a LEFT SHIFT is Present. Laboratory - Chemistry and C hemistry - challengeOrdered By: Chioma Springer on 02-03-2025 Glucose Ql (U) Negative [facility] - UrinalysisOrder ed By: Chioma Springer on 02-03-2025 Protein Ql (U) Negative [facility] MCV (mean corpuscular volume ) determinationOrdered By: Chioma Springer on 02-03-2025 MCV (RBC) [Entitic vol] 93.5 fL 81-99 [facility] Comment on above: Performed By: #### L 100.0100 ####[facility] [address] [place], [address] Mean corpuscular hemoglobin (MCH) determinationOrdered By: Chioma Springer on 02-03-2025 MCH (RBC) [Entitic mass] 30.6 pg 27.0-32.0 [facility] Comment on above: Performed By: #### L 100.0100 ####[facility] [address] [place], [address] Mean corpuscular hemoglobin concentration (MCHC) determinationOrdered By: Chioma Springer on 02-03-2025 MCHC (RBC) [Mass/Vol] 32.7 g/dL 32-36 [facility] Comment on above: Performed By: #### L 100.0100 ####[facility] [address] [place], [address] Mean platelet volume determi nationOrdered By: Chioma Springer on 02-03-2025 Platelet mean volume (Bld) [Entitic vol] 11.7 fL 6.2-12.0 [facility] Comment on above: Performed By: #### L 100.0100 ####[facility] [address] [place], [address] Monocyte percentageOrdered B y: Chioma Springer on 02-03-2025 Monocytes/100 WBC (Bld) 8.6 % 0-10 [facility] Comment on above: Performed By: #### L 100.0100 ####[facility] [address] [place], [address] Neutrophil percentageOrdered By: Chioma Springer on 02-03-2025 Neutrophils/100 WBC (Bld) 70.7 % High 47-70 [facility] Comment on above: Performed By: #### L 100.0100 ####[facility] [address] [place], [address] Nucleated red blood cell per centageOrdered By: Chioma Springer on 02-03-2025 Nucleated RBC/100 WBC (Bld) [Ratio] 0 % 0-5 [facility] Shingle [facility]immer Office Visit Reporton 02-03-2025 Shingle Trimmer Office Visit Report [facility]'s [address], [address] [place] [address] OFFICE VISIT Date of Service: 02/03/25 MR#: [id number] Acct: [id number] Name: MADDIE TORRE Rep #: [id number] : 2000 Provider: AMEE diaz Age/Sex: 24/F [place] [facility] [place] Status: Signed Intake Vital Signs 09/23/24 13:32 01/20/25 14:36 02/03/25 13:42 Height 5 ft 2 in 5 ft 2 in 5 ft 2 in Weight: 190 lb 193 lb 6 oz BMI 34.7 35.4 BP 115/75 108/80 Intake Visit Reasons: 32 wk ob Chief Complaint: 32 Week OB 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 Normal [facility] Platelet countOrdered By: Cristian priti Springer on 02-03-2025 Platelets (Bld) [#/Vol] 232 10*3/uL 150-450 [facility] Comment on above: Performed By: #### L 100.0100 ####[facility] [address] [place], [address] White blood cell (WBC) count Ordered By: Chioma Gian on 02-03-2025 WBC (Bld) [#/Vol] 12.2 10*3/uL High 4.4-11.0 [facility] Comment on above: Performed By: #### L 100.0100 ####[facility] [address] [place], [address] Laboratory - Chemistry and C hemistry - challengeOrdered By: Amber Dyer on 01-20-2025 Glucose Ql (U) Negative [facility] - UrinalysisOrder ed By: Amber Dyer on 01-20-2025 Protein Ql (U) Negative [facility] Shingle Trimmer Office Visit Reporton 01-20-2025 Shingle Trimmer Office Visit Report [facility]'[address], [address] [place] [address] OFFICE VISIT Date of Service: 01/20/25 MR#: [id number] Acct: [id number] Name: MADDIE TORRE Rep #: [id number] : 2000 Provider: AMAIRANI burnett Age/Sex: 24/F [place] [facility] [place]: Signed Intake Vital Signs 09/23/24 13:32 01/06/25 12:59 01/20/25 14:36 Height 5 ft 2 in 5 ft 2 in 5 ft 2 in Weight: 190 lb BMI 34.7 BP 115/75 Intake Visit Reasons: 30 wk ob Salon Customer Experience Specialist Required: No Is patient in pain?: No Allergies No Known Allergies Allergy (Verified 01/20/25 14:38) Medications ???Medication ???Instructions ???Recorded ???Confirmed ???Type ergocalciferol (vitamin D2) 1,250 1,250 mcg PO QWEEK 01/27/2401/20 History mcg (50,000 unit) capsule (Drisdol) ondansetron 4 mg disintegrating 4 mg PO Q6H PRN nausea and 08/09/ 4 01/20/25 Rx tablet vomiting #30 tabs [...] spouse 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 (more content not included)... 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 María Elena Solomon DO Coil Wrapper: Signed [facility] Absolute lymphocyte countOrd ered By: María Elena Hodge on 01-06-2025 Lymphocytes Auto (Unsp spec) [#/Vol] 2.08 10*3/uL 0.83-4.51 [facility] Absolute neutrophil countOrd ered By: María Elena Hodge on 01-06-2025 Neutrophils (Bld) [#/Vol] 11.0 10*3/uL High 2.0-7.7 [facility] Automated lymphocyte count a s percentage of total leukocytesOrdered By: María Elena Hodge on 01-06-2025 Lymphocytes/100 WBC Auto (Unsp spec) 14.5 % Low 19-41 [facility] Basophil percentageOrdered B y: María Elena Hodge on 01-06-2025 Basophils/100 WBC (Bld) 0.3 % 0-1 [facility] CBC W/Diff, Automatedon 12-10 Absolute Lymph 2.08 X10 3/uL Normal 0.83-4.51 [facility] Comment on above: Performed By: #### L 100.0100, L509.8002, L501.0250, L3890.6006 #### [facility] [address] [place], [address] Absolute Neut 11.0 X10 3/uL High 2.0-7.7 [facility] Comment on above: Performed By: #### L 100.0100, L509.8002, L501.0250, L3890.6006 #### [facility] [address] [place], [address] Basophils/100 WBC (Bld) 0.3 % Normal 0-1 [facility] Comment on above: Performed By: #### L 100.0100, L509.8002, L501.0250, L3890.6006 #### [facility] [address] [place], [address] Eosinophils/100 WBC (Bld) 1.2 % Normal 0-5 [facility] Comment on above: Performed By: #### L 100.0100, L509.8002, L501.0250, L3890.6006 #### [facility] [address] [place], [address] Erythrocyte distribution width (RBC) [Ratio] 12.7 % Normal 11.6-14.6 [facility] Comment on above: Performed By: #### L 100.0100, L509.8002, L501.0250, L3890.6006 #### [facility] [address] [place], [address] Hematocrit (Bld) [Volume fraction] 30.4 % Low 37-47 [facility] Comment on above: Performed By: #### L 100.0100, L509.8002, L501.0250, L3890.6006 #### [facility] [address] [place], [address] Hemoglobin (Bld) [Mass/Vol] 10.2 g/dL Low 12.0-15.0 [facility] Comment on above: Performed By: #### L 100.0100, L509.8002, L501.0250, L3890.6006 #### [facility] [address] [place], [address] IG% 1.700 High 0.0-0.9 [facility] Comment on above: Result Comment: IG% - Immature Granulocytes (promyelocytes, myelocytes and metamyelocytes) > 1% indicates that a LEFT SHIFT is Present. Performed By: #### L 100.0100, L509.8002, L501.0250, L3890.6006 #### [facility] [address] [place], [address] Lymphocytes/100 WBC (Bld) 14.5 % Low 19-41 [facility] Comment on above: Performed By: #### L 100.0100, L509.8002, L501.0250, L3890.6006 #### [facility] [address] [place], [address] MCH (RBC) [Entitic mass] 30.4 pg Normal 27.0-32.0 [facility] Comment on above: Performed By: #### L 100.0100, L509.8002, L501.0250, L3890.6006 #### [facility] [address] [place], [address] MCHC (RBC) [Mass/Vol] 33.6 g/dL Normal 32-36 [facility] Comment on above: Performed By: #### L 100.0100, L509.8002, L501.0250, L3890.6006 #### [facility] [address] [place], [address] MCV (RBC) [Entitic vol] 90.7 fL Normal 81-99 [facility] Comment on above: Performed By: #### L 100.0100, L509.8002, L501.0250, L3890.6006 #### [facility] [address] [place], [address] Monocytes/100 WBC (Bld) 5.4 % Normal 0-10 [facility] Comment on above: Performed By: #### L 100.0100, L509.8002, L501.0250, L3890.6006 #### [facility] [address] [place], [address] Neutrophils/100 WBC (Bld) 76.9 % High 47-70 [facility] Comment on above: Performed By: #### L 100.0100, L509.8002, L501.0250, L3890.6006 #### [facility] [address] [place], [address] Nucleated RBC (Bld) [#/Vol] 0 10*3/uL Normal 0-5 [facility] Comment on above: Performed By: #### L 100.0100, L509.8002, L501.0250, L3890.6006 #### [facility] [address] [place], [address] Platelet mean volume (Bld) [Entitic vol] 11.4 fL Normal 6.2-12.0 [facility] Comment on above: Performed By: #### L 100.0100, L509.8002, L501.0250, L3890.6006 #### [facility] [address] [place], [address] Platelets (Bld) [#/Vol] 268 10*3/uL Normal 150-450 [facility] Comment on above: Performed By: #### L 100.0100, L509.8002, L501.0250, L3890.6006 #### [facility] [address] [place], [address] RBC (Bld) [#/Vol] 3.35 10*6/uL Low 4.2-5.4 [facility] Comment on above: Performed By: #### L 100.0100, L509.8002, L501.0250, L3890.6006 #### [facility] [address] [place], [address] RDW SD 41.2 fl Normal 35.1-43.9 [facility] Comment on above: Performed By: #### L 100.0100, L509.8002, L501.0250, L3890.6006 #### [facility] [address] [place], [address] WBC (Bld) [#/Vol] 14.3 10*3/uL High 4.4-11.0 [facility] Comment on above: Performed By: #### L 100.0100, L509.8002, L501.0250, L3890.6006 #### [facility] [address] [place], [address] Eosinophil percentageOrdered By: María Elena Hodge on 01-06-2025 Eosinophils/100 WBC (Bld) 1.2 % 0-5 [facility] Erythrocyte distribution wid th ratioOrdered By: María Elena Hodge on 01-06-2025 Erythrocyte distribution width (RBC) [Ratio] 12.7 % 11.6-14.6 [facility] Erythrocyte distribution wid th standard deviationOrdered By: María Elena Hodge on 01-06-2025 Erythrocyte distribution width (RBC) [Ratio] 41.2 fl 35.1-43.9 [facility] Glucose Challenge Gest 1H 50 isaiah 01-06-2025 GLU GEST 50g 1H 126 mg/dL Normal 70-140 [facility] Comment on above: Performed By: #### L 100.0100, L509.8002, L501.0250, L3890.6006 #### [facility] [address] [facility] [place], [place], [address] Glucose measurement at 2 armani rs post-dose gestational glucose tolerance testOrdered By: María Elena Hodge on 01-06-2025 Glucose [Mass/Vol] 126 mg/dL 70-140 [facility] HIVon 01-06-2025 HIV Non-Reactive Normal Nonreactive [facility] Comment on above: Result Comment: Non- Reactive Reactive Repeatedly reactive samples must be confirmed according to CDC recommended confirmatory algorithms. The subresults for either HIVAG or AHIV can be used as an aid in the selection of the confirmation algorithm for reactive samples. Send out specimens with Reactive results to [facility] for confirmation. Order the HIV antibody detection and differentiation: lc#[id number] Performed By: #### L 100.0100, L509.8002, L501.0250, L3890.6006 ####[facility] [address] [place], [address] Hematocrit Auto (Bld) [Volum e fraction]Ordered By: María Elena Hodge on 01-06-2025 Hematocrit (Bld) [Volume fraction] 30.4 % Low 37-47 [facility] Hemoglobin measurementOrdere d By: María Elena Hodge on 01-06-2025 Hemoglobin (Bld) [Mass/Vol] 10.2 g/dL Low 12.0-15.0 [facility] Immature granulocytes/100 WB C Auto (Bld)Ordered By: María Elena Hodge on 01-06-2025 Immature granulocytes/100 WBC (Bld) 1.700 % High 0.0-0.9 [facility] Comment on above: IG% - Immature Granu locytes (promyelocytes, myelocytes and metamyelocytes) > 1% indicates that a LEFT SHIFT is Present. Laboratory - Chemistry and C hemistry - challengeOrdered By: Elle Poe on 01-06-2025 Glucose Ql (U) Negative [facility] - UrinalysisOrder ed By: Elle Poe on 01-06-2025 Protein Ql (U) Negative [facility] MCV (mean corpuscular volume ) determinationOrdered By: María Elena Hodge on 01-06-2025 MCV (RBC) [Entitic vol] 90.7 fL 81-99 [facility] Mean corpuscular hemoglobin (MCH) determinationOrdered By: María Elena Hodge on 01-06-2025 MCH (RBC) [Entitic mass] 30.4 pg 27.0-32.0 [facility] Mean corpuscular hemoglobin concentration (MCHC) determinationOrdered By: María Elena Hodge on 01-06-2025 MCHC (RBC) [Mass/Vol] 33.6 g/dL 32-36 [facility] Mean platelet volume determi nationOrdered By: María Elena Hodge on 01-06-2025 Platelet mean volume (Bld) [Entitic vol] 11.4 fL 6.2-12.0 [facility] Monocyte percentageOrdered B y: María Elena Hodge on 01-06-2025 Monocytes/100 WBC (Bld) 5.4 % 0-10 [facility] Neutrophil percentageOrdered By: María Elena Hodge on 01-06-2025 Neutrophils/100 WBC (Bld) 76.9 % High 47-70 [facility] No Panel InformationOrdered By: María Elena Hodge on 01-06-2025 HIV (1&2) Antibody Non-Reactive Nonreactive [facility] Comment on above: Non-ReactiveReactive Repeatedly reactive samples must be confirmed according to CDC recommended confirmatory algorithms. The subresults for either HIVAG or AHIV can be used as an aid in the selection of the confirmation algorithm for reactive samples.Send out specimens with Reactive results to [facility] for confirmation.Order the HIV antibody detection and differentiation: #[id number] Nucleated red blood cell per centageOrdered By: María Elena Hodge on 01-06-2025 Nucleated RBC/100 WBC (Bld) [Ratio] 0 % 0-5 [facility] Shingle Trimmer Office Visit Reporton 01-06-2025 Shingle Trimmer Office Visit Report [facility]'s [address], [address] [place] [address] OFFICE VISIT Date of Service: 01/06/25 MR#: [id number] Acct: [id number] Name: MADDIE TORRE Rep #: [id number] : 2000 Provider: AMAIRANI Sainz ams Age/Sex: 24/F [place] [facility] [place] Status: Signed Intake Vital Signs 09/23/24 13:32 12/18/24 14:05 01/06/25 12:59 Height 5 ft 2 in 5 ft 2 in 5 ft 2 in Weight: 188 lb 6 oz BMI 34.4 BP 131/86 H Intake Visit Reasons: 28 wk ob/glucose Chief Complaint: 28wk OB Salon Customer Experience Specialist Required: No Is patient in pain?: No [...] occupational 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 No (more content not included)... Normal [facility] Platelet countOrdered By: Kendall Hodge on 01-06-2025 Platelets (Bld) [#/Vol] 268 10*3/uL 150-450 [facility] RBC Auto (Bld) [#/Vol]Ordere d By: María Elena Hodge on 01-06-2025 RBC (Bld) [#/Vol] 3.35 10*6/uL Low 4.2-5.4 [facility] Syphilis Antibodieson 2024 Syphilis Abs Non-Reactive Normal Nonreactive [facility] Comment on above: Performed By: #### L 100.0100, L509.8002, L501.0250, L3890.6006 #### [facility] [place], [address] White blood cell (WBC) count Ordered By: María Elena Hodge on 01-06-2025 WBC (Bld) [#/Vol] 14.3 10*3/uL High 4.4-11.0 [facility] - Chemistry and C hemistry - challengeOrdered By: María Elena Hodge on 12-18-2024 Glucose Ql (U) Negative [facility] - UrinalysisOrder ed By: María Elena Hodge on 12-18-2024 Protein Ql (U) Negative [facility] Shingle Trimmer Office Visit Reporton 12-18-2024 Shingle [facility]immer Office Visit Report [facility]'s [address], [address] [place] [address] OFFICE VISIT Date of Service: 12/18/24 MR#: [id number] Acct: [id number] Name: MADDIE TORRE Rep #: [id number] : 2000 Provider: Dr. 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 Date Name GA/Weeks Outcome Route Bth Weight Gen Labor Lgth Anesthesia Del [facility] Provider FOB 01/09/24 5 spontaneous HPI 25 [...] 145 -???-???-???-???-?? (more content not included)... Normal [facility] - Chemistry and C hemistry - challengeOrdered By: Chioma Springer on 11-18-2024 Glucose Ql (U) Negative [facility] - UrinalysisOrder ed By: Chioma Springer on 11-18-2024 Protein Ql (U) Negative [facility] Shingle Trimmer Office Visit Reporton 11-18-2024 Shingle Trimmer Office Visit Report [facility]'s [address], [address] [place] [address] OFFICE VISIT Date of Service: 11/18/24 MR#: [id number] Acct: [id number] Name: MADDIE TORRE Rep #: [id number] : 2000 Provider: AMEE diaz Age/Sex: 24/F [place] [facility] [place]: Signed Intake Vital Signs 09/23/24 13:32 10/22/24 14:18 11/18/24 15:40 Height 5 ft 2 in 5 ft 2 in 5 ft 2 in Weight: 177 lb 2 oz BMI 32.3 BP 114/72 Intake Visit Reasons: 21 wk ob Chief Complaint: 21 Week OB Salon Customer Experience Specialist Required: No Is patient in pain?: No Allergies No Known Allergies Allergy (Verified 11/18/24 15:39) Medications ???Medication ???Instructions ???Recorded ???Confirmed ???Type ergocalciferol (vitamin D2) 1,250 1,250 mcg PO QWEEK 01/27/2411/18 History mcg (50,000 unit) capsule (Drisdol) ondansetron 4 mg disintegrating 4 mg PO Q6H PRN nausea and 08/09/ 4 11/18/24 Rx tablet vomiting #30 tabs [...] spouse 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 Date Name GA/Weeks Outcome Route Bth Weight Infant Gen Labor Lgth Anesthesia Del Locatn Provider FOB 01/09/24 5 spontaneous HPI 21 [...] 145 -???-???-???-???-???-? (more content not included)... Normal [facility] OB Anatomy w/ Transvaginalon 11-10-2024 OB Anatomy w/ Transvaginal [facility] [address] [place] [address] OB Anatomy w/ Transvaginal MR#: [id number] Acct: [id number] Name: MADDIE TORRE Rep #: [id number] : 2000 F 24 From: Franklyn danielle MD PCP: SERGE QuinterosC Status: [facility] Study: OB Anatomy w/ Transvaginal Date of Exam: 11/10 Exam# [id number] Ordering Dr: Radha Peters PROCEDURE: OB ANATOMY [...] cysts in both choroid plexus. Reading Location: [id number] CC: AMEE Flower; Dr. Radha Peters MD Coil Wrapper: Signed Normal [facility] Chlamydia and Neisseria gono rrhoeae detection by PCROrdered By: Chioma Springer on 10-22-2024 Chlamydia/Neisseria (PCR) [facility] - Chemistry and C hemistry - challengeOrdered By: Chioma Springer on 10-22-2024 Glucose Ql (U) Negative [facility] - UrinalysisOrder ed By: Chioma Springer on 10-22-2024 Protein Ql (U) Negative [facility] M8200.2203on 10-22-2024 M8200.2203 Chlamydia Trachomati s PCR NEGATIVE for Chlamydia trachomatis N. gonorrhoeae PCR Negative for N. gonorrhoeae Normal [facility] Comment on above: Performed By: #### M 8200.2203 #### [facility] [address] [place], [address] Shingle Trimmer Office Visit Reporton 10-22-2024 Shingle Trimmer Office Visit Report [facility]'[address], [address] [place] [address] OFFICE VISIT Date of Service: 10/22/24 MR#: [id number] Acct: [id number] Name: MADDIE TORRE Rep #: [id number] : 2000 Provider: AMEE diaz Age/Sex: 24/F [place] [facility] [place]: Signed Intake Vital Signs 09/23/24 13:32 10/22/24 14:18 Height 5 ft 2 in 5 ft 2 in Weight: 172 lb 4 oz BMI 31.5 BP 118/74 Intake Visit Reasons: 17 wk ob Chief Complaint: 17 Week OB Salon Customer Experience Specialist Required: No Is patient in pain?: No Allergies No Known Allergies Allergy (Verified 10/22/24 14:20) Medications ???Medication ???Instructions ???Recorded ???Confirmed ???Type ergocalciferol (vitamin D2) 1,250 1,250 mcg PO QWEEK 01/27/2410/22 History mcg (50,000 unit) capsule (Drisdol) ondansetron 4 mg disintegrating 4 mg PO Q6H PRN nausea and 4 10/22/24 Rx tablet vomiting #30 tabs [...] spouse 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 ??- (more content not included)... Normal [facility] - Chemistry and C hemistry - challengeon 09-23-2024 Glucose Ql (U) Negative [facility] - Urinalysison Protein Ql (U) Negative [facility] Shingle Trimmer Office Visit Reporton 09-23-2024 Shingle Trimmer Office Visit Report [address], [address] [place] [address] OFFICE VISIT Date of Service: 09/23/24 MR#: [id number] Acct: [id number] Name: MADDIE TORRE Rep #: [id number] : 2000 Provider: Dr. 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 Date Name GA/Weeks Outcome Route Bth Weight Gen Labor Lgth Anesthesia Del [facility] Provider FOB 01/09/24 5 spontaneous HPI 12wk [...] Trimester First (more content not included)... Normal [facility] Miscellaneous procedureOrder ed By: Elle Poe on 09-15-2024 Miscellaneous Test Comment SEE SCANNED REPORT [facility] NATERAon 09-15-2024 KANDACE SEE SCANNED REPORT Normal [facility] Comment on above: Performed By: #### L 900.0098 ####[facility] [address] [place], [place], [address] Chlamydia/GC SHAYLEE aptimaon CHLAMY,NUC ACID Positive Abnormal Negative [facility] Comment on above: Performed By: #### M 100.2200, L7000.1800 ####[facility] [address] [place], [place], [id number] GC BY NUC ACID Negative Normal Negative [facility] Comment on above: Result Comment: Perf ormed at: =G - [facility] [address] [place] [id number] Cardiovascular Surgical Tech: Ilsa Crystal MD, Phone: [phone] Performed By: #### M 100.6346, L8190.0637 ####[facility] [address] [facility] [place], [address] HIV - WCHon 08-25-2024 HIV Non-Reactive Normal Nonreactive [facility] Comment on above: Order Comment: Reaso n for Exam: Performed By: #### L 501.9985, L3890.6300, L3890.6005, L509.8000, BTS, L3890.6100, L100.0100, L509.4005 ####[facility] [address] [facility] [place], [address] Hepatitis B Surface Antigeno n 08-25-2024 HEP B Surf Ag Non-Reactive Normal Nonreactive [facility] Comment on above: Order Comment: Reaso n for Exam: Performed By: #### L 501.9985, L3890.6300, L3890.6005, L509.8000, BTS, L3890.6100, L100.0100, L509.4005 ####[facility] [address] [facility] [place], [address] Hepatitis C Antibodyon 08-25 Hepatitis C AB Non-Reactive Normal Nonreactive [facility] Comment on above: Order Comment: Reaso n for Exam: Result Comment: Non Reactive: < 0.8 Equivocal: >/= 0.8 to < 1.0 Reactive: >/= 1.0 The CDC requires that a reactive/equivocal HCV antibody result be sent out for confirmation. HCV Quant by PCR testing. Performed By: #### L 501.9985, L3890.6300, L3890.6005, L509.8000, BTS, L3890.6100, L100.0100, L509.4005 ####[facility] [address] [place], [address] L509.8000on 08-25-2024 Syphilis Abs Non-Reactive Normal [facility] Comment on above: Order Comment: Reaso n for Exam: Performed By: #### L 501.9985, L3890.6300, L3890.6005, L509.8000, BTS, L3890.6100, L100.0100, L509.4005 ####[facility] [address] [place], [address] Rubella IgGon 08-25-2024 Rubella IgG Reactive Normal Nonreactive [facility] Comment on above: Order Comment: Reaso n for Exam: Result Comment: Anti body Results Interpretation of Immune Status Non Reactive Presumed Non-Immune Equivocal Equivocal Reactive Presumed Immune Performed By: #### L 501.9985, L3890.6300, L3890.6005, L509.8000, BTS, L3890.6100, L100.0100, L509.4005 ####[facility] [address] [place], [address] Urine Cultureon 08-23-2024 URC Culture exhibits no growth. Normal [facility] Comment on above: Performed By: #### M 100.2200, L7000.1800 ####[facility] [address] [place], [address] Absolute neutrophil countOrd ered By: Elle Poe on 08-22-2024 Neutrophils (Bld) [#/Vol] 6.2 10*3/uL 2.0-7.7 [facility] Basophil percentageOrdered B y: Elle Poe on 08-22-2024 Basophils/100 WBC (Bld) 0.4 % 0-1 [facility] C. trachomatis rRNA SHAYLEE+prob e Ql (Unsp spec)Ordered By: Elle Poe on 08-22-2024 Chlamydia DNA (SHAYLEE) Positive High Negative [facility] CBC W/Diff, Automatedon - Absolute Lymph 2.27 X10 3/uL Normal 0.83-4.51 [facility] Comment on above: Performed By: #### L 501.9985, L3890.6300, L3890.6005, L509.8000, BTS, L3890.6100, L100.0100, L509.4005 ####[facility] [address] [place], [address] Absolute Neut 6.2 X10 3/uL Normal 2.0-7.7 [facility] Comment on above: Performed By: #### L 501.9985, L3890.6300, L3890.6005, L509.8000, BTS, L3890.6100, L100.0100, L509.4005 ####[facility] [address] [place], [address] Basophils/100 WBC (Bld) 0.4 % Normal 0-1 [facility] Comment on above: Performed By: #### L 501.9985, L3890.6300, L3890.6005, L509.8000, BTS, L3890.6100, L100.0100, L509.4005 ####[facility] [address] [place], [address] Eosinophils/100 WBC (Bld) 2.2 % Normal 0-5 [facility] Comment on above: Performed By: #### L 501.9985, L3890.6300, L3890.6005, L509.8000, BTS, L3890.6100, L100.0100, L509.4005 ####[facility] [address] [place], [address] Erythrocyte distribution width (RBC) [Ratio] 12.2 % Normal 11.6-14.6 [facility] Comment on above: Performed By: #### L 501.9985, L3890.6300, L3890.6005, L509.8000, BTS, L3890.6100, L100.0100, L509.4005 ####[facility] [address] [place], [address] Hematocrit (Bld) [Volume fraction] 37.7 % Normal 37-47 [facility] Comment on above: Performed By: #### L 501.9985, L3890.6300, L3890.6005, L509.8000, BTS, L3890.6100, L100.0100, L509.4005 ####[facility] [address] [place], [address] Hemoglobin (Bld) [Mass/Vol] 12.7 g/dL Normal 12.0-15.0 [facility] Comment on above: Performed By: #### L 501.9985, L3890.6300, L3890.6005, L509.8000, BTS, L3890.6100, L100.0100, L509.4005 ####[facility] [address] [place], [address] IG% 0.400 Normal 0.0-0.9 [facility] Comment on above: Result Comment: IG% - Immature Granulocytes (promyelocytes, myelocytes and metamyelocytes) > 1% indicates that a LEFT SHIFT is Present. Performed By: #### L 501.9985, L3890.6300, L3890.6005, L509.8000, BTS, L3890.6100, L100.0100, L509.4005 ####[facility] [address] [place], [address] Lymphocytes/100 WBC (Bld) 23.7 % Normal 19-41 [facility] Comment on above: Performed By: #### L 501.9985, L3890.6300, L3890.6005, L509.8000, BTS, L3890.6100, L100.0100, L509.4005 ####[facility] [address] [place], [address] MCH (RBC) [Entitic mass] 29.5 pg Normal 27.0-32.0 [facility] Comment on above: Performed By: #### L 501.9985, L3890.6300, L3890.6005, L509.8000, BTS, L3890.6100, L100.0100, L509.4005 ####[facility] [address] [place], [address] MCHC (RBC) [Mass/Vol] 33.7 g/dL Normal 32-36 [facility] Comment on above: Performed By: #### L 501.9985, L3890.6300, L3890.6005, L509.8000, BTS, L3890.6100, L100.0100, L509.4005 ####[facility] [address] [place], [address] MCV (RBC) [Entitic vol] 87.5 fL Normal 81-99 [facility] Comment on above: Performed By: #### L 501.9985, L3890.6300, L3890.6005, L509.8000, BTS, L3890.6100, L100.0100, L509.4005 ####[facility] [address] [place], [address] Monocytes/100 WBC (Bld) 8.4 % Normal 0-10 [facility] Comment on above: Performed By: #### L 501.9985, L3890.6300, L3890.6005, L509.8000, BTS, L3890.6100, L100.0100, L509.4005 ####[facility] [address] [place], [address] Neutrophils/100 WBC (Bld) 64.9 % Normal 47-70 [facility] Comment on above: Performed By: #### L 501.9985, L3890.6300, L3890.6005, L509.8000, BTS, L3890.6100, L100.0100, L509.4005 ####[facility] [address] [place], [address] Nucleated RBC (Bld) [#/Vol] 0 10*3/uL Normal 0-5 [facility] Comment on above: Performed By: #### L 501.9985, L3890.6300, L3890.6005, L509.8000, BTS, L3890.6100, L100.0100, L509.4005 ####[facility] [address] [place], [address] Platelet mean volume (Bld) [Entitic vol] 11.8 fL Normal 6.2-12.0 [facility] Comment on above: Performed By: #### L 501.9985, L3890.6300, L3890.6005, L509.8000, BTS, L3890.6100, L100.0100, L509.4005 ####[facility] [address] [place], [address] Platelets (Bld) [#/Vol] 264 10*3/uL Normal 150-450 [facility] Comment on above: Performed By: #### L 501.9985, L3890.6300, L3890.6005, L509.8000, BTS, L3890.6100, L100.0100, L509.4005 ####[facility] [address] [place], [address] RBC (Bld) [#/Vol] 4.31 10*6/uL Normal 4.2-5.4 [facility] Comment on above: Performed By: #### L 501.9985, L3890.6300, L3890.6005, L509.8000, BTS, L3890.6100, L100.0100, L509.4005 ####[facility] [address] [place], [address] RDW SD 39.5 fl Normal 35.1-43.9 [facility] Comment on above: Performed By: #### L 501.9985, L3890.6300, L3890.6005, L509.8000, BTS, L3890.6100, L100.0100, L509.4005 ####[facility] [address] [place], [address] WBC (Bld) [#/Vol] 9.6 10*3/uL Normal 4.4-11.0 [facility] Comment on above: Performed By: #### L 501.9985, L3890.6300, L3890.6005, L509.8000, BTS, L3890.6100, L100.0100, L509.4005 ####[facility] [address] [place], [place], [address] Eosinophil percentageOrdered By: Elle Poe on 08-22-2024 Eosinophils/100 WBC (Bld) 2.2 % 0-5 [facility] Erythrocyte distribution wid th ratioOrdered By: Elle Poe on 08-22-2024 Erythrocyte distribution width (RBC) [Ratio] 12.2 % 11.6-14.6 [facility] Erythrocyte distribution wid th standard deviationOrdered By: Elle Poe on 08-22-2024 Erythrocyte distribution width (RBC) [Entitic vol] 39.5 fL 35.1-43.9 [facility] HIV 1+2 Ab+HIV1 p24 Ag IA Ql Ordered By: Elle Poe on 08-22-2024 HIV (1&2) Antibody Non-Reactive Nonreactive [facility] Hematocrit Auto (Bld) [Volum e fraction]Ordered By: Elle Poe on 08-22-2024 Hematocrit (Bld) [Volume fraction] 37.7 % 37-47 [facility] Hemoglobin A1con 08-22-2024 HbA1c (Bld) [Mass fraction] 5.0 % Normal 3.8-5.6 [facility] Comment on above: Result Comment: Norm al < 5.7 % Prediabetic 5.7 - 6.4 % Diabetic >or= 6.5 % Please note range changes. Performed By: #### L 501.9985, L3890.6300, L3890.6005, L509.8000, BTS, L3890.6100, L100.0100, L509.4005 ####[facility] [address] [place], [place], [address] Hemoglobin A1c percentageOrd ered By: Elle Poe on 08-22-2024 HbA1c (Bld) [Mass fraction] 5.0 % 3.8-5.6 [facility] Comment on above: Normal < 5.7 % Predi abetic 5.7 - 6.4 % Diabetic >or= 6.5 % Please note range changes. Hemoglobin measurementOrdere d By: Elle Poe on 08-22-2024 Hemoglobin (Bld) [Mass/Vol] 12.7 g/dL 12.0-15.0 [facility] Hepatitis B surface antigen detectionOrdered By: Elle Poe on 08-22-2024 Hepatitis B Surface Antigen Non-Reactive Nonreactive [facility] Hepatitis C virus antibody a ssayOrdered By: Elle Poe on 08-22-2024 Hepatitis C Antibody Non-Reactive Nonreactive [facility] Comment on above: Non Reactive: < 0.8 Equivocal: >/= 0.8 to < 1.0 Reactive: >/= 1.0The CDC requires that a reactive/equivocal HCV antibody result be sent out for confirmation. HCV Quant by PCR testing. Immature granulocytes/100 WB C Auto (Bld)Ordered By: Elle Poe on 08-22-2024 Immature granulocytes/100 WBC (Bld) 0.400 % 0.0-0.9 [facility] Comment on above: IG% - Immature Granu locytes (promyelocytes, myelocytes and metamyelocytes) > 1% indicates that a LEFT SHIFT is Present. Lymphocytes Auto (Unsp spec) [#/Vol]Ordered By: Elle Poe on 08-22-2024 Lymphocytes (Bld) [#/Vol] 2.27 10*3/uL 0.83-4.51 [facility] Lymphocytes/100 WBC Auto (Un sp spec)Ordered By: Elle Poe on 08-22-2024 Lymphocytes/100 WBC (Bld) 23.7 % 19-41 [facility] MCV (mean corpuscular volume ) determinationOrdered By: Elle Poe on 08-22-2024 MCV (RBC) [Entitic vol] 87.5 fL 81-99 [facility] Mean corpuscular hemoglobin (MCH) determinationOrdered By: Elle Poe on 08-22-2024 MCH (RBC) [Entitic mass] 29.5 pg 27.0-32.0 [facility] Mean corpuscular hemoglobin concentration (MCHC) determinationOrdered By: Elle Poe on 08-22-2024 MCHC (RBC) [Mass/Vol] 33.7 g/dL 32-36 [facility] Mean platelet volume determi nationOrdered By: Elle Poe on 08-22-2024 Platelet mean volume (Bld) [Entitic vol] 11.8 fL 6.2-12.0 [facility] Monocyte percentageOrdered B y: Elle Poe on 08-22-2024 Monocytes/100 WBC (Bld) 8.4 % 0-10 [facility] Neisseria gonorrhoeae nuclei c acid detection by amplified probe techniqueOrdered By: Elle Poe on 08-22-2024 N. gonorrhoeae DNA SHAYLEE+probe Ql (Unsp spec) Negative Negative [facility] Comment on above: Performed at: =[address] [id number] Director: Ilsa Crystal MD, Phone: [phone] Neutrophil percentageOrdered By: Elle Poe on 08-22-2024 Neutrophils/100 WBC (Bld) 64.9 % 47-70 [facility] Nucleated red blood cell per centageOrdered By: Elle Poe on 08-22-2024 Nucleated RBC/100 WBC (Bld) [Ratio] 0 % 0-5 [facility] Shingle Trimmer Office Visit Reporton 08-22-2024 Shingle Trimmer Office Visit Report [facility]'s [address], [address] [place] [address] OFFICE VISIT Date of Service: 08/22/24 MR#: [id number] Acct: [id number] Name: MDADIE TORRE Rep #: [id number] : 2000 Provider: AMAIRANI Sainz ams Age/Sex: 24/F [place] [facility] [place]: Signed Intake Vital Signs 02/13/24 11:38 08/13/24 14:05 08/22/24 14:24 Height 5 ft 2 in 5 ft 2 in 5 ft 2 in Weight: 120 lb BMI 21.9 BP 120/86 H Intake Visit Reasons: New OB, LMP 06/23, ITZEL 03/30/25 Salon Customer Experience Specialist Required: No Is patient in pain?: No [...] occupational 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 Date Name GA/Weeks Outcome Route Bth Weight Gen Labor Lgth Anesthesia Del Locatn Provider FOB 01/09/24 5 spontaneous HPI New [...] Other, T (more content not included)... Normal [facility] Platelet countOrdered By: Delmar Poe on 08-22-2024 Platelets (Bld) [#/Vol] 264 10*3/uL 150-450 [facility] RBC Auto (Bld) [#/Vol]Ordere d By: Elle Poe on 08-22-2024 RBC (Bld) [#/Vol] 4.31 10*6/uL 4.2-5.4 [facility] Rubella immune status IgGOrd ered By: Elle Poe on 08-22-2024 Rubella IgG Antibody Reactive Nonreactive [facility] Comment on above: Antibody Results Int erpretation of Immune Status Non Reactive Presumed Non-Immune Equivocal Equivocal Reactive Presumed Immune Transvaginal w/Preg USon Transvaginal w/Preg [facility] [address] [place], [place] [id number] Transvaginal w/Preg US MR#: [id number] Acct: [id number] Name: MADDIE TORRE Rep #: [id number] : 2000 F 24 From: Sarthak Rosas MD PCP: Minerva 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 Radha Peters MD Coil Wrapper: Signed [facility] Treponema sp Ab Ql (S)Ordere d By: Elle Poe on 08-22-2024 Syphilis Total Antibody Non-Reactive [facility] Type AND Screenon 08-22-2024 Ab SCREEN GEL Negative Normal [facility] Comment on above: Order Comment: PN Performed By: #### L 501.9985, L3890.6300, L3890.6005, L509.8000, BTS, L3890.6100, L100.0100, L509.4005 ####[facility] [address] [place], [address] ABO and Rh group Nom (Bld) Blood group O Rh(D) positive [facility] Comment on above: Order Comment: PN Performed By: #### L 501.9985, L3890.6300, L3890.6005, L509.8000, BTS, L3890.6100, L100.0100, L509.4005 ####[facility] [address] [place], [address] Urine cultureOrdered By: Chas Poe on 08-22-2024 Bacteria identified Cx Nom (U) Culture exhibits no growth. [facility] White blood cell (WBC) count Ordered By: Elle Poe on 08-22-2024 WBC (Bld) [#/Vol] 9.6 10*3/uL 4.4-11.0 [facility] Office Visit Reporton 08-13-2024 [facility] Office Visit Report [facility]'s [address], [address] [place] [address] OFFICE VISIT Date of Service: 08/13/24 MR#: [id number] Acct: [id number] Name: MADDIE TORRE Rep #: [id number] : 2000 Provider: Dr. Radha stanford MD Age/Sex: 24/F [place] [facility] [place]: Signed Intake Vital Signs 08/11/24 11:46 08/13/24 14:05 Height 5 ft 2 in 5 ft 2 in Weight: 166 lb 6 oz 166 lb 8 oz BMI 30.4 30.4 BP 128/84 H 122/81 H Intake Visit Reasons: RESCAN per [employer] Customer Experience Specialist Required: No Is patient in pain?: No [...] at home: Yes additional social history: -Otoniel- Heel Gummer HPI RESCAN per Details: MADDIE TORRE is [...] list details for specific plan information. 08/13/24 1437 Date Radha Peters MD Cosigner Signature: Date (if applicabl (more content not included)... Normal [facility] HCG ( test) QlOrder ed By: Radha Peters on 08-11-2024 Human Chorionic Gonadotropin, Quant 81635 mIU/mL High <4 [facility] Comment on above: hCG levels with Gest ational AgeGestational Age hCG mIU/mL (IU/L)0.2 - 1 week 5 - 501-2 weeks 50 - 5002-3 weeks 100 - 01032-2 weeks 500 - 744179-2 weeks 1000 - 496069-7 weeks 15640 - 100,0006-8 weeks 89077 - 200,0002-3 months 59429 - 100,000 [facility] Office Visit Reporton 08-11-2024 Shingle [facility] Office Visit Report [facility] [address], [address] [place] [address] OFFICE VISIT Date of Service: 08/11/24 MR#: [id number] Acct: [id number] Name: MADDIE TORRE Rep #: [id number] : 2000 Provider: Dr. Radha stanford MD Age/Sex: 24/F [place] [facility] [place]: Signed Intake Vital Signs 02/13/24 11:38 08/11/24 11:46 Height 5 ft 2 in 5 ft 2 in Weight: 166 lb 8 oz 166 lb 6 oz BMI 30.4 30.4 BP 114/72 128/84 H Intake Visit Reasons: Spotting, new OB is next week [employer] Customer Experience Specialist Required: No Is patient in pain?: No [...] at home: Yes additional social history: -Otoniel- Heel Gummer HPI Spotting, new OB is next week [...] healthy appearing, comfortable and no acute distress HENVA Head: normal to inspection and normocephalic Neck [...] Cosigner Signature: Date (if applicable) CC: Normal [facility] Type AND Screenon 08-11-2024 ABO and Rh group Nom (Bld) Blood group O Rh(D) positive Normal [facility] Comment on above: Order Comment: PN Performed By: #### B TA, L700.8000 ####[facility] [address] [place], [address] hCG Titer Quant., Serumon HCG QUANT. 03200 mIU/mL High 1-3 [facility] Comment on above: Result Comment: hCG levels with Gestational Age Gestational Age hCG mIU/mL (IU/L) 0.2 - 1 week 5 - 50 1-2 weeks 50 - 500 2-3 weeks 100 - 5000 3-4 weeks 500 - 64085 4-5 weeks 1000 - 28231 5-6 weeks 82189 - 100,000 6-8 weeks 79504 - 200,000 2-3 months 68539 - 100,000 Performed By: #### Ti , L700.8000 ####[facility] [address] [place], [address] CBC W Auto Differential pane l (Bld)on 07-29-2024 Basophils (Bld) [#/Vol] 0.04 x10*3/uL Normal 0.00-0.10 [facility] Comment on above: Performed By: #### 2 276-4 #### MIGUEL GUALLPA ([id number]) [facility] ([facility]) [address] [place] [address] 90592 Basophils/100 WBC (Bld) 0.3 % Normal 0.0-2.0 [facility] Comment on above: Performed By: #### 2 276-4 #### MIGUEL GUALLPA ([id number]) [facility] ([facility]) [address] [place] [address] 78762 Eosinophils (Bld) [#/Vol] 0.16 x10*3/uL Normal 0.00-0.70 [facility] Comment on above: Performed By: #### 2 276-4 #### MIGUEL GUALLPA ([id number]) [facility] ([facility]) [address] [place] [address] 56266 Eosinophils/100 WBC (Bld) 1.3 % Normal 0.0-6.0 [facility] Comment on above: Performed By: #### 2 276-4 #### MIGUEL GUALLPA ([id number]) [facility] ([facility]) [address] [place] [address] 07489 Erythrocyte distribution width (RBC) [Ratio] 12.5 % Normal 11.5-14.5 [facility] Comment on above: Performed By: #### 2 276-4 #### MIGUEL GUALLPA ([id number]) [facility] ([facility]) [address] [place] [address] 71803 Hematocrit (Bld) [Volume fraction] 39.7 % Normal 36.0-46.0 [facility] Comment on above: Performed By: #### 2 276-4 #### MIGUEL GUALLPA ([id number]) [facility] ([facility]) [address] [place] [address] 39064 Hemoglobin (Bld) [Mass/Vol] 12.8 g/dL Normal 12.0-16.0 [facility] Comment on above: Performed By: #### 2 276-4 #### MIGUEL GUALLPA ([id number]) [facility] ([facility]) [address] [place] [address] 71684 Immature granulocytes (Bld) [#/Vol] 0.04 x10*3/uL Normal 0.00-0.70 [facility] Comment on above: Performed By: #### 2 276-4 #### MIGUEL GUALLPA ([id number]) [facility] ([facility]) [address] [place] [address] 43079 Immature granulocytes/100 WBC (Bld) 0.3 % Normal 0.0-0.9 [facility] Comment on above: Result Comment: Shelley ture Granulocyte Count (IG) includes promyelocytes, myelocytes and metamyelocytes but does not include bands. Percent differential counts (%) should be interpreted in the context of the absolute cell counts (cells/UL). Performed By: #### 2 276-4 #### MIGUEL GUALLPA ([id number]) [facility] ([facility]) [address] [place] [address] 33936 Lymphocytes (Bld) [#/Vol] 2.65 x10*3/uL Normal 1.20-4.80 [facility] Comment on above: Performed By: #### 2 276-4 #### MIGUEL GUALLPA ([id number]) [facility] ([facility]) [address] [place] [address] 93204 Lymphocytes/100 WBC (Bld) 21.9 % Normal 13.0-44.0 [facility] Comment on above: Performed By: #### 2 276-4 #### MIGUEL GUALLPA ([id number]) [facility] ([facility]) [address] [place] [address] 11462 MCH (RBC) [Entitic mass] 29.4 pg Normal 26.0-34.0 [facility] Comment on above: Performed By: #### 2 276-4 #### MIGUEL GUALLPA ([id number]) [facility] ([facility]) [address] [place] [address] 30396 MCHC (RBC) [Mass/Vol] 32.2 g/dL Normal 32.0-36.0 [facility] Comment on above: Performed By: #### 2 276-4 #### MIGUEL GUALLPA ([id number]) [facility] ([facility]) [address] [place] [address] 07788 MCV (RBC) [Entitic vol] 91 fL Normal 80-100 [facility] Comment on above: Performed By: #### 2 276-4 #### MIGUEL GUALLPA ([id number]) [facility] ([facility]) [address] [place] [address] 64874 Monocytes (Bld) [#/Vol] 0.72 x10*3/uL Normal 0.10-1.00 [facility] Comment on above: Performed By: #### 2 276-4 #### MIGUEL GUALLPA ([id number]) [facility] ([facility]) [address] [place] [address] 52909 Monocytes/100 WBC (Bld) 6.0 % Normal 2.0-10.0 [facility] Comment on above: Performed By: #### 2 276-4 #### MIGUEL GUALLPA ([id number]) [facility] ([facility]) [address] [place] [address] 11703 Neutrophils (Bld) [#/Vol] 8.49 x10*3/uL High 1.20-7.70 [facility] Comment on above: Result Comment: Perc ent differential counts (%) should be interpreted in the context of the absolute cell counts (cells/uL). Performed By: #### 2 276-4 #### MIGUEL GUALLPA ([id number]) [facility] ([facility]) [address] [place] [address] 01500 Neutrophils/100 WBC (Bld) 70.2 % Normal 40.0-80.0 [facility] Comment on above: Performed By: #### 2 276-4 #### MIGUEL GUALLPA ([id number]) [facility] ([facility]) [address] [place] [address] 56022 Nucleated RBC/100 WBC (Bld) [Ratio] 0.0 /100 WBCs Normal 0.0-0.0 [facility] Comment on above: Performed By: #### 2 276-4 #### MIGUEL GUALLPA ([id number]) [facility] ([facility]) [address] [place] [address] 88186 Platelets (Bld) [#/Vol] 308 x10*3/uL Normal 150-450 [facility] Comment on above: Performed By: #### 2 276-4 #### MIGUEL GUALLPA ([id number]) [facility] ([facility]) [address] [place] [address] 90195 RBC (Bld) [#/Vol] 4.36 x10*6/uL Normal 4.00-5.20 [facility] Comment on above: Performed By: #### 2 276-4 #### MIGUEL GUALLPA ([id number]) [facility] ([facility]) [address] [place] [address] 50681 WBC (Bld) [#/Vol] 12.1 x10*3/uL High 4.4-11.3 [facility] Comment on above: Performed By: #### 2 276-4 #### MIGUEL GUALLPA ([id number]) [facility] ([facility]) [address] [place] [address] 51647 Choriogonadotropin.beta subu niton 07-29-2024 HCG.beta subunit Qn 257 m[IU]/mL High <5 [facility] Comment on above: Order Comment: Total HCG measurement is performed using the Daphne [place] Access Immunoassay which detects intact HCG and free beta HCG subunit. This test is not indicated for use as a tumor marker. HCG testing is performed using a different test methodology at [facility] than other [facility]. Direct result comparison should only be made within the same method. Result Comment: Low- level positive HCG results can be seen in early , in [place]- or post-menopausal females due to normal pituitary [...] By: #### 2 276-4 #### MIGUEL GUALLPA ([id number]) [facility] ([facility]) [address] [place] [address] 75602 CBC W Auto Differential pane l (Bld)on 07-25-2024 Basophils (Bld) [#/Vol] 0.03 x10*3/uL Normal 0.00-0.10 [facility] Comment on above: Performed By: #### 5 7021-8 #### MIGUEL GUALLPA ([id number]) [facility] ([facility]) [address] [place] [address] 79118 Basophils/100 WBC (Bld) 0.2 % Normal 0.0-2.0 [facility] Comment on above: Performed By: #### 5 7021-8 #### MIGUEL GUALLPA ([id number]) [facility] ([facility]) [address] [place] [address] 27481 Eosinophils (Bld) [#/Vol] 0.16 x10*3/uL Normal 0.00-0.70 [facility] Comment on above: Performed By: #### 5 7021-8 #### MIGUEL GUALLPA ([id number]) [facility] ([facility]) [address] [place] [address] 25403 Eosinophils/100 WBC (Bld) 1.2 % Normal 0.0-6.0 [facility] Comment on above: Performed By: #### 5 7021-8 #### MIGUEL GUALLPA ([id number]) [facility] ([facility]) [address] [place] [address] 16794 Erythrocyte distribution width (RBC) [Ratio] 12.3 % Normal 11.5-14.5 [facility] Comment on above: Performed By: #### 5 7021-8 #### MIGUEL GUALLPA ([id number]) [facility] ([facility]) [address] [place] [address] 05612 Hematocrit (Bld) [Volume fraction] 37.7 % Normal 36.0-46.0 [facility] Comment on above: Performed By: #### 5 7021-8 #### MIGUEL GUALLPA ([id number]) [facility] ([facility]) [address] [place] [address] 69614 Hemoglobin (Bld) [Mass/Vol] 12.6 g/dL Normal 12.0-16.0 [facility] Comment on above: Performed By: #### 5 7021-8 #### MIGUEL GUALLPA ([id number]) [facility] ([facility]) [address] [place] [address] 92779 Immature granulocytes (Bld) [#/Vol] 0.04 x10*3/uL Normal 0.00-0.70 [facility] Comment on above: Performed By: #### 5 7021-8 #### MIGUEL GUALLPA ([id number]) [facility] ([facility]) [address] [place] [address] 83253 Immature granulocytes/100 WBC (Bld) 0.3 % Normal 0.0-0.9 [facility] Comment on above: Result Comment: Shelley ture Granulocyte Count (IG) includes promyelocytes, myelocytes and metamyelocytes but does not include bands. Percent differential counts (%) should be interpreted in the context of the absolute cell counts (cells/UL). Performed By: #### 5 7021-8 #### MIGUEL GUALLPA ([id number]) [facility] ([facility]) [address] [place] [address] 06740 Lymphocytes (Bld) [#/Vol] 2.68 x10*3/uL Normal 1.20-4.80 [facility] Comment on above: Performed By: #### 5 7021-8 #### MIGUEL GUALLPA ([id number]) [facility] ([facility]) [address] [place] [address] 47785 Lymphocytes/100 WBC (Bld) 20.0 % Normal 13.0-44.0 [facility] Comment on above: Performed By: #### 5 7021-8 #### MIGUEL GUALLPA ([id number]) [facility] ([facility]) [address] [place] [address] 41918 MCH (RBC) [Entitic mass] 29.8 pg Normal 26.0-34.0 [facility] Comment on above: Performed By: #### 5 7021-8 #### MIGUEL GUALLPA ([id number]) [facility] ([facility]) [address] [place] [address] 56274 MCHC (RBC) [Mass/Vol] 33.4 g/dL Normal 32.0-36.0 [facility] Comment on above: Performed By: #### 5 7021-8 #### MIGUEL GUALLPA ([id number]) [facility] ([facility]) [address] [place] [address] 89617 MCV (RBC) [Entitic vol] 89 fL Normal 80-100 [facility] Comment on above: Performed By: #### 5 7021-8 #### MIGUEL GUALLPA ([id number]) [facility] ([facility]) [address] [place] [address] 39989 Monocytes (Bld) [#/Vol] 0.64 x10*3/uL Normal 0.10-1.00 [facility] Comment on above: Performed By: #### 5 7021-8 #### MIGUEL GUALLPA ([id number]) [facility] ([facility]) [address] [place] [address] 75377 Monocytes/100 WBC (Bld) 4.8 % Normal 2.0-10.0 [facility] Comment on above: Performed By: #### 5 7021-8 #### MIGUEL GUALLPA ([id number]) [facility] ([facility]) [address] [place] [address] 00711 Neutrophils (Bld) [#/Vol] 9.84 x10*3/uL High 1.20-7.70 [facility] Comment on above: Result Comment: Perc ent differential counts (%) should be interpreted in the context of the absolute cell counts (cells/uL). Performed By: #### 5 7021-8 #### MIGUEL GUALLPA ([id number]) [facility] ([facility]) [address] [place] [address] 67479 Neutrophils/100 WBC (Bld) 73.5 % Normal 40.0-80.0 [facility] Comment on above: Performed By: #### 5 7021-8 #### MIGUEL GUALLPA ([id number]) [facility] ([facility]) [address] [place] [address] 29643 Nucleated RBC/100 WBC (Bld) [Ratio] 0.0 /100 WBCs Normal 0.0-0.0 [facility] Comment on above: Performed By: #### 5 7021-8 #### MIGUEL GUALLPA ([id number]) [facility] ([facility]) [address] [place] [address] 32765 Platelets (Bld) [#/Vol] 291 x10*3/uL Normal 150-450 [facility] Comment on above: Performed By: #### 5 7021-8 #### MIGUEL GUALLPA ([id number]) [facility] ([facility]) [address] [place] [address] 55037 RBC (Bld) [#/Vol] 4.23 x10*6/uL Normal 4.00-5.20 [facility] Comment on above: Performed By: #### 5 7021-8 #### MIGUEL GUALLPA ([id number]) [facility] ([facility]) [address] [place] [address] 45734 WBC (Bld) [#/Vol] 13.4 x10*3/uL High 4.4-11.3 [facility] Comment on above: Performed By: #### 5 7021-8 #### MIGUEL GUALLPA ([id number]) [facility] ([facility]) [address] [place] [address] 91373 Calcidiolon 07-25-2024 25-hydroxyvitamin D3 [Mass/Vol] 18 ng/mL Low 30-100 [facility] Comment on above: Order Comment: Defic iency: < 20 ng/mlInsufficiency: 20-29 ng/mlSufficiency: 30-100 ng/mlThis assay accurately quantifies the sum of Vitamin D3, 25-Hydroxy and Vitamin D2,25-Hydroxy. Performed By: #### 2 276-4 #### MIGUEL GUALLPA ([id number]) [facility] ([facility]) [address] [place] [address] Choriogonadotropin.beta subu niton 07-25-2024 HCG.beta subunit Qn 16 m[IU]/mL High <5 [facility] Comment on above: Order Comment: Total HCG measurement is performed using the Daphne [place] Access Immunoassay which detects intact HCG and free beta HCG subunit. This test is not indicated for use as a tumor marker. HCG testing is performed using a different test methodology at [facility] than other [facility]. Direct result comparison should only be [...] By: #### 2 1198-7 #### MIGUEL GUALLPA ([id number]) [facility] ([facility]) [address] [place] [address] Cobalaminson 07-25-2024 Cobalamin (Vitamin B12) [Mass/Vol] 166 pg/mL Low 211-911 [facility] Comment on above: Performed By: #### 2 276-4 #### MIGUEL GUALLPA ([id number]) [facility] ([facility]) [address] [place] [address] 27371 Comprehensive metabolic 2000 panelon 07-25-2024 Albumin BCP dye [Mass/Vol] 4.4 g/dL Normal 3.4-5.0 [facility] Comment on above: Performed By: #### 2 4323-8 #### MIGUEL GUALLPA ([id number]) [facility] ([facility]) [address] [place] [address] 53447 ALP [Catalytic activity/Vol] 70 U/L Normal 33-110 [facility] Comment on above: Performed By: #### 2 4323-8 #### MIGUEL GUALLPA ([id number]) [facility] ([facility]) [address] [place] [address] ALT With P-5'-P [Catalytic activity/Vol] 14 U/L Normal 7-45 [facility] Comment on above: Result Comment: Erlinda ents treated with Sulfasalazine may generate falsely decreased results for ALT. Performed By: #### 2 4323-8 #### MIGUEL GUALLPA ([id number]) [facility] ([facility]) [address] [place] [address] Anion gap [Moles/Vol] 9 mmol/L Low 10-20 [facility] Comment on above: Performed By: #### 2 432-8 #### MIGUEL GUALLPA ([id number]) [facility] ([facility]) [address] [place] [address] 93180 AST With P-5'-P [Catalytic activity/Vol] 15 U/L Normal 9-39 [facility] Comment on above: Performed By: #### 2 432-8 #### MIGUEL GUALLPA ([id number]) [facility] ([facility]) [address] [place] [address] 35936 Bilirubin [Mass/Vol] 0.3 mg/dL Normal 0.0-1.2 [facility] Comment on above: Performed By: #### 2 432-8 #### MIGUEL GUALLPA ([id number]) [facility] ([facility]) [address] [place] [address] 88834 Calcium [Mass/Vol] 9.3 mg/dL Normal 8.6-10.3 [facility] Comment on above: Performed By: #### 2 432-8 #### MIGUEL GUALLPA ([id number]) [facility] ([facility]) [facility] [place] [address] Chloride [Moles/Vol] 103 mmol/L Normal 98-107 [facility] Comment on above: Performed By: #### 2 4323-8 #### MIGUEL GUALLPA ([id number]) [facility] ([facility]) [address] [place] [address] 64402 CO2 [Moles/Vol] 26 mmol/L Normal 21-32 [facility] Comment on above: Performed By: #### 2 4323-8 #### MIGUEL GUALLPA ([id number]) [facility] ([facility]) [address] [place] [address] 21014 Creatinine [Mass/Vol] 0.68 mg/dL Normal 0.50-1.05 [facility] Comment on above: Performed By: #### 2 4323-8 #### MIGUEL GUALLPA ([id number]) [facility] ([facility]) [address] [place] [address] 08151 GFR/1.73 sq M.predicted MDRD (S/P/Bld) [Vol rate/Area] mL/min/{1.73_m2} Normal >60 [facility] Comment on above: Result Comment: Calc ulations of estimated GFR are performed using the 2020 CKD-EPI Study Refit equation without the race variable for the IDMS-Traceable creatinine methods. https://jasn.asnjournals.org/content//ASN.92720 17293 Performed By: #### 2 4323-8 #### MIGUEL GUALLPA ([id number]) [facility] ([facility]) [address] [place] [address] 64054 Glucose [Mass/Vol] 99 mg/dL Normal 74-99 [facility] Comment on above: Performed By: #### 2 4323-8 #### MIGUEL GUALLPA ([id number]) [facility] ([facility]) [address] [place] [address] 06085 Potassium [Moles/Vol] 3.9 mmol/L Normal 3.5-5.3 [facility] Comment on above: Performed By: #### 2 4323-8 #### MIGUEL GUALLPA ([id number]) [facility] ([facility]) [address] [place] [address] 55757 Protein [Mass/Vol] 7.0 g/dL Normal 6.4-8.2 [facility] Comment on above: Performed By: #### 2 4323-8 #### MIGUEL GUALLPA ([id number]) [facility] ([facility]) [address] [place] [address] 05627 Sodium [Moles/Vol] 134 mmol/L Low 136-145 [facility] Comment on above: Performed By: #### 2 4323-8 #### MIGUEL GUALLPA ([id number]) [facility] ([facility]) [address] [place] [address] 56967 Urea nitrogen [Mass/Vol] 13 mg/dL Normal 6-23 [facility] Comment on above: Performed By: #### 2 4323-8 #### MIGUEL GUALLPA ([id number]) [facility] ([facility]) [address] [place] [address] 53751 Ferritinon 07-25-2024 Ferritin [Mass/Vol] 45 ng/mL Normal 8-150 [facility] Comment on above: Performed By: #### 2 276-4 #### MIGUEL GUALLPA ([id number]) [facility] ([facility]) [address] [place] [address] 86905 HbA1c (Bld) [Mass fraction]o n 07-25-2024 Average glucose Estimated from glycated hemoglobin (Bld) [Mass/Vol] 100 mg/dL Normal Not Established [facility] Comment on above: Order Comment: Diagn osis of Briiiomq-CbngsvSrr-Zmblrxpw: < or = 5.6%Increased risk for developing diabetes: 5.7-6.4%Diagnostic of diabetes: > or = 6.5% Performed By: #### 2 276-4 #### MIGUEL GUALLPA ([id number]) [facility] ([facility]) [address] [place] [address] 73230 Hemoglobin A1c/Hemoglobin.to shaniqua 07-25-2024 HbA1c (Bld) [Mass fraction] 5.1 % Normal See comment [facility] Comment on above: Order Comment: Diagn osis of Vfytzusa-PyslztQnt-Tkvbqlyt: < or = 5.6%Increased risk for developing diabetes: 5.7-6.4%Diagnostic of diabetes: > or = 6.5% Performed By: #### 2 276-4 #### MIGUEL GUALLPA ([id number]) [facility] ([facility]) [address] [place] [id number] Iron and Iron binding capaci ty panelon 07-25-2024 Iron [Mass/Vol] 83 ug/dL Normal 35-150 [facility] Comment on above: Performed By: #### 5 0190-8 #### MIGUEL GUALLPA ([id number]) [facility] ([facility]) [address] [place] [address] 28427 Iron binding capacity [Mass/Vol] 425 ug/dL Normal 240-445 [facility] Comment on above: Performed By: #### 5 0190-8 #### MIGUEL GUALLPA ([id number]) [facility] ([facility]) [address] [place] [address] 41431 Iron binding capacity.unsaturated [Mass/Vol] 342 ug/dL Normal 110-370 [facility] Comment on above: Performed By: #### 5 0190-8 #### MIGUEL GUALLPA ([id number]) [facility] ([facility]) 70 [place] [address]89 Iron saturation [Mass fraction] 20 % Low 25-45 [facility] Comment on above: Performed By: #### 5 0190-8 #### MIGUEL GUALLPA ([id number]) [facility] ([facility]) [address] [place] [address] 04194 Parathyrin.intacton 07-25-20 24 Parathyrin.intact [Mass/Vol] 33.3 pg/mL Normal 18.5-88.0 [facility] Comment on above: Performed By: #### 2 276-4 #### MIGUEL GUALLPA ([id number]) [facility] ([facility]) [address] [place] [address] 48949 TSH WITH REFLEX TO FREE T4 I F ABNORMALon 07-25-2024 TSH Qn 2.06 m[IU]/L Normal 0.44-3.98 [facility] Comment on above: Order Comment: TSH t esting is performed using different testing methodology at [facility] than at other [facility]. Direct result comparisons should only be made within the same method. Performed By: #### 2 276-4 #### MIGUEL GUALLPA ([id number]) [facility] ([facility]) [address] [place] [address] 46624 CBC W Auto Differential pane l (Bld)on 10-13-2023 Basophils (Bld) [#/Vol] 0.04 x10*3/uL Normal 0.00-0.10 [facility] Comment on above: Performed By: #### 5 7021-8 #### MIGUEL GUALLPA ([id number]) [facility] ([facility]) [address] [place] [address] 72110 Basophils/100 WBC (Bld) 0.5 % Normal 0.0-2.0 [facility] Comment on above: Performed By: #### 5 7021-8 #### MIGUEL GUALLPA ([id number]) [facility] ([facility]) [address] [place] [address] 27789 Eosinophils (Bld) [#/Vol] 0.29 x10*3/uL Normal 0.00-0.70 [facility] Comment on above: Performed By: #### 5 7021-8 #### MIGUEL GUALLPA ([id number]) [facility] ([facility]) [address] [place] [address] 13742 Eosinophils/100 WBC (Bld) 3.7 % Normal 0.0-6.0 [facility] Comment on above: Performed By: #### 5 7021-8 #### MIGUEL GUALLPA ([id number]) [facility] ([facility]) [address] [place] [address] 08627 Erythrocyte distribution width (RBC) [Ratio] 12.5 % Normal 11.5-14.5 [facility] Comment on above: Performed By: #### 5 7021-8 #### MIGUEL GUALLPA ([id number]) [facility] ([facility]) [address] [place] [address] 28712 Hematocrit (Bld) [Volume fraction] 40.7 % Normal 36.0-46.0 [facility] Comment on above: Performed By: #### 5 7021-8 #### MIGUEL GUALLPA ([id number]) [facility] ([facility]) [address] [place] [address] 89593 Hemoglobin (Bld) [Mass/Vol] 13.4 g/dL Normal 12.0-16.0 [facility] Comment on above: Performed By: #### 5 7021-8 #### MIGUEL GUALLPA ([id number]) [facility] ([facility]) [address] [place] [address] 09580 Immature granulocytes (Bld) [#/Vol] 0.02 x10*3/uL Normal 0.00-0.70 [facility] Comment on above: Performed By: #### 5 7021-8 #### MIGUEL GUALLPA ([id number]) [facility] ([facility]) [address] [place] [address] 34379 Immature granulocytes/100 WBC (Bld) 0.3 % Normal 0.0-0.9 [facility] Comment on above: Result Comment: Shelley ture Granulocyte Count (IG) includes promyelocytes, myelocytes and metamyelocytes but does not include bands. Percent differential counts (%) should be interpreted in the context of the absolute cell counts (cells/UL). Performed By: #### 5 7021-8 #### MIGUEL GUALLPA ([id number]) [facility] ([facility]) [address] [place] [address] 73868 Lymphocytes (Bld) [#/Vol] 1.36 x10*3/uL Normal 1.20-4.80 [facility] Comment on above: Performed By: #### 5 7021-8 #### MIGUEL GUALLPA ([id number]) [facility] ([facility]) [address] [place] [address] 29749 Lymphocytes/100 WBC (Bld) 17.5 % Normal 13.0-44.0 [facility] Comment on above: Performed By: #### 5 7021-8 #### MIGUEL GUALLPA ([id number]) [facility] ([facility]) [address] [place] [address] 50913 MCH (RBC) [Entitic mass] 30.0 pg Normal 26.0-34.0 [facility] Comment on above: Performed By: #### 5 7021-8 #### MIGUEL GUALLPA ([id number]) [facility] ([facility]) [address] [place] [address] 48373 MCHC (RBC) [Mass/Vol] 32.9 g/dL Normal 32.0-36.0 [facility] Comment on above: Performed By: #### 5 7021-8 #### MIGUEL GUALLPA ([id number]) [facility] ([facility]) [address] [place] [address] 72152 MCV (RBC) [Entitic vol] 91 fL Normal 80-100 [facility] Comment on above: Performed By: #### 5 7021-8 #### MIGUEL GUALLPA ([id number]) [facility] ([facility]) [address] [place] [address] 89110 Monocytes (Bld) [#/Vol] 0.80 x10*3/uL Normal 0.10-1.00 [facility] Comment on above: Performed By: #### 5 7021-8 #### MIGUEL GUALLPA ([id number]) [facility] ([facility]) [address] [place] [address] 39703 Monocytes/100 WBC (Bld) 10.3 % Normal 2.0-10.0 [facility] Comment on above: Performed By: #### 5 7021-8 #### MIGUEL GUALLPA ([id number]) [facility] ([facility]) [address] [place] [address] 52807 Neutrophils (Bld) [#/Vol] 5.28 x10*3/uL Normal 1.20-7.70 [facility] Comment on above: Result Comment: Perc ent differential counts (%) should be interpreted in the context of the absolute cell counts (cells/uL). Performed By: #### 5 7021-8 #### MIGUEL GUALLPA ([id number]) [facility] ([facility]) [address] [place] [address] 08416 Neutrophils/100 WBC (Bld) 67.7 % Normal 40.0-80.0 [facility] Comment on above: Performed By: #### 5 7021-8 #### MIGUEL GUALLPA ([id number]) [facility] ([facility]) [address] [place] [address] 22175 Nucleated RBC/100 WBC (Bld) [Ratio] 0.0 /100 WBCs Normal 0.0-0.0 [facility] Comment on above: Performed By: #### 5 7021-8 #### MIGUEL GUALLPA ([id number]) [facility] ([facility]) [address] [place] [address] 66256 Platelets (Bld) [#/Vol] 266 x10*3/uL Normal 150-450 [facility] Comment on above: Performed By: #### 5 7021-8 #### MIGUEL GUALLPA ([id number]) [facility] ([facility]) [address] [place] [address] 44940 RBC (Bld) [#/Vol] 4.46 x10*6/uL Normal 4.00-5.20 [facility] Comment on above: Performed By: #### 5 7021-8 #### MIGUEL GUALLPA ([id number]) [facility] ([facility]) [address] [place] [address] 81637 WBC (Bld) [#/Vol] 7.8 x10*3/uL Normal 4.4-11.3 [facility] Comment on above: Performed By: #### 5 7021-8 #### MIGUEL GUALLPA ([id number]) [facility] ([facility]) [address] [place] [address] 75171 Calcidiolon 10-13-2023 25-hydroxyvitamin D3 [Mass/Vol] 28 ng/mL Low 30-100 [facility] Comment on above: Order Comment: Defic iency: < 20 ng/ml Insufficiency: 20-29 ng/ml Sufficiency: 30-100 ng/ml This assay accurately quantifies the sum of Vitamin D3, 25-Hydroxy and Vitamin D2,25-Hydroxy. Performed By: #### 1 989-3 #### MIGUEL GUALLPA ([id number]) [facility] ([facility]) [address] [place] [address] 60623 Ferritinon 10-13-2023 Ferritin [Mass/Vol] 59 ng/mL Normal 8-150 [facility] Comment on above: Performed By: #### 2 276-4 #### MIGUEL GUALLPA ([id number]) [facility] ([facility]) [address] [place] [address] 89097 Iron and Iron binding capaci ty panelon 10-13-2023 Iron [Mass/Vol] 69 ug/dL Normal 35-150 [facility] Comment on above: Performed By: #### 5 0190-8 #### MIGUEL GUALLPA ([id number]) [facility] ([facility]) [address] [place] [address] 51370 Iron binding capacity [Mass/Vol] 399 ug/dL Normal 240-445 [facility] Comment on above: Performed By: #### 5 0190-8 #### MIGUEL GUALLPA ([id number]) [facility] ([facility]) [address] [place] [address] 45501 Iron binding capacity.unsaturated [Mass/Vol] 330 ug/dL Normal 110-370 [facility] Comment on above: Performed By: #### 5 0190-8 #### MIGUEL GUALLPA ([id number]) [facility] ([facility]) [address] [place] [address] 66075 Iron saturation [Mass fraction] 17 % Low 25-45 [facility] Comment on above: Performed By: #### 5 0190-8 #### MIGUEL GUALLPA ([id number]) [facility] ([facility]) [address] [place] [address] 69870 Parathyrin.intacton 10-13-19 24 Parathyrin.intact [Mass/Vol] 48.1 pg/mL Normal 18.5-88.0 [facility] Comment on above: Performed By: #### 2 731-8 #### JONNATHAN Schwartz ([id number]) [facility] ([facility]) [id number] [place] [address] 63719 CBC AND DIFFERENTIALon 11-30 Basophils (Bld) [#/Vol] 0.00 10*3/uL Normal 0.00 - 0.10 [facility] Comment on above: Performed By: #### C BCDF #### [address] [address] Basophils/100 WBC (Bld) 0.7 % Normal 0.0 - 2.0 [facility] Comment on above: Performed By: #### C BCDF #### [address] [address] Eosinophils (Bld) [#/Vol] 0.10 10*3/uL Normal 0.00 - 0.70 [facility] Comment on above: Performed By: #### C BCDF #### [address] [address] Eosinophils/100 WBC (Bld) 1.4 % Normal 0.0 - 6.0 [facility] Comment on above: Performed By: #### C BCDF #### [address] [address] Erythrocyte distribution width (RBC) [Ratio] 12.8 % Normal 11.5 - 14.5 [facility] Comment on above: Performed By: #### C BCDF #### [address] [address] Hematocrit (Bld) [Volume fraction] 38.5 % Normal 36.0 - 46.0 [facility] Comment on above: Performed By: #### C BCDF #### [address] [address] Hemoglobin (Bld) [Mass/Vol] 13.5 g/dL Normal 12.0 - 16.0 [facility] Comment on above: Performed By: #### C BCDF #### [address] [address] Lymphocytes (Bld) [#/Vol] 2.30 10*3/uL Normal 1.20 - 4.80 [facility] Comment on above: Performed By: #### C BCDF #### [address] 8[address] Lymphocytes/100 WBC (Bld) 40.0 % Normal 13.0 - 44.0 [facility] Comment on above: Performed By: #### C BCDF #### [address] 9[address] MCHC (RBC) [Mass/Vol] 35.0 g/dL Normal 32.0 - 36.0 [facility] Comment on above: Performed By: #### C BCDF #### [address] [address] MCV (RBC) [Entitic vol] 88 fL Normal 80 - 100 [facility] Comment on above: Performed By: #### C BCDF #### [address] [address]48 Monocytes (Bld) [#/Vol] 0.30 10*3/uL Normal 0.10 - 1.00 [facility] Comment on above: Performed By: #### C BCDF #### [address] 18995 Monocytes/100 WBC (Bld) 5.8 % Normal 2.0 - 10.0 [facility] Comment on above: Performed By: #### C BCDF #### [address] [address] Neutrophils (Bld) [#/Vol] 3.10 10*3/uL Normal 1.20 - 7.70 [facility] Comment on above: Result Comment: Perc ent differential counts (%) should be interpreted in the context of the absolute cell counts (cells/L). Performed By: #### C BCDF #### [address] [address] Neutrophils/100 WBC (Bld) 52.1 % Normal 40.0 - 80.0 [facility] Comment on above: Performed By: #### C BCDF #### [address] [address]80 NUCLEATED RBC 0.1 /100 WBC Normal [facility] Comment on above: Performed By: #### C BCDF #### [address] [address] Platelets (Bld) [#/Vol] 338 10*3/uL Normal 150 - 450 [facility] Comment on above: Performed By: #### C BCDF #### [address] [address] RBC 4.38 x10E12/L Normal 4.00 - 5.20 [facility] Comment on above: Performed By: #### C BCDF #### [address] [address] WBC (Bld) [#/Vol] 5.9 10*3/uL Normal 4.4 - 11.3 [facility] Comment on above: Performed By: #### C BCDF #### [address] [address] COMPREHENSIVE PANELon 2021 Albumin [Mass/Vol] 5.0 g/dL Normal 3.4 - 5.0 [facility] Comment on above: Performed By: #### C MP #### [address] [address] ALP [Catalytic activity/Vol] 53 U/L Normal 33 - 110 [facility] Comment on above: Performed By: #### C MP #### [address] [address] ALT [Catalytic activity/Vol] 11 U/L Normal 7 - 45 [facility] Comment on above: Result Comment: Erlinda ents treated with Sulfasalazine may generate falsely decreased results for ALT. Performed By: #### C MP #### [address] [address] Anion gap [Moles/Vol] 13 mmol/L Normal 10 - 20 [facility] Comment on above: Performed By: #### C MP #### [address] [address] AST [Catalytic activity/Vol] 15 U/L Normal 9 - 39 [facility] Comment on above: Performed By: #### C MP #### [address] 08684 Bilirubin [Mass/Vol] 0.7 mg/dL Normal 0.0 - 1.[address] [facility] Comment on above: Performed By: #### C MP #### [address] [address] Calcium [Mass/Vol] 9.4 mg/dL Normal 8.6 - 10.3 [facility] Comment on above: Performed By: #### C MP #### [address] [address] Chloride [Moles/Vol] 103 mmol/L Normal 98 - [address] [facility] Comment on above: Performed By: #### C MP #### [address] [address] Creatinine [Mass/Vol] 0.59 mg/dL Normal 0.50 - 1.05 [facility] Comment on above: Performed By: #### C MP #### [address] [address] eGFR FEMALE >90 Normal >90 [facility] Comment on above: Result Comment: CALC ULATIONS OF ESTIMATED GFR ARE PERFORMED USING THE 2020 CKD-EPI STUDY REFIT EQUATION WITHOUT THE RACE VARIABLE FOR THE IDMS-TRACEABLE CREATININE METHODS. https://jasn.asnjournals.org/content/early//ASN.30285 34251 Performed By: #### C MP #### [address] [address] Glucose [Mass/Vol] 101 mg/dL High 74 - 99 [facility] Comment on above: Performed By: #### C MP #### [address] [address]366 HCO3 (Bld) [Moles/Vol] 24 mmol/L Normal 21 - 32 [facility] Comment on above: Performed By: #### C MP #### [address] [address] Potassium [Moles/Vol] 3.3 mmol/L Low 3.5 - 5.3 [facility] Comment on above: Performed By: #### C MP #### [address] [address]487 Protein [Mass/Vol] 8.2 g/dL Normal 6.4 - 8.2 [facility] Comment on above: Performed By: #### C MP #### [address] [address] [place] [address] Sodium [Moles/Vol] 137 mmol/L Normal 136 - 145 [facility] Comment on above: Performed By: #### C MP #### [address] [place] [address] Urea nitrogen [Mass/Vol] 10 mg/dL Normal 6 - 23 [facility] Comment on above: Performed By: #### C MP #### [address] [address] [address] ABDOMEN AND PELVIS W IV C [facility] 11-30-2021 CT ABDOMEN AND PELVIS W IV CONTRAST Patient Name: MADDIE NELSON STUDY: CT ABDOMEN AND PELVIS W IV CONTRAST; 11/30/2021 4:17 pm INDICATION: R lower abd pain . COMPARISON: None. ACCESSION NUMBER(S): [id number] ORDERING CLINICIAN: VERONA AVILES TECHNIQUE: CT of [...] Electronically signed by: STACI MARIE MD Normal [facility] HCG,URINEon 11-30-2021 Beta HCG ( test) Ql (U) Negative Normal Negative [facility] Comment on above: Performed By: #### H CGU #### [place] [id number] LIPASEon 11-30-2021 Lipase [Catalytic activity/Vol] 14 U/L Normal 9 - 82 [facility] Comment on above: Result Comment: Kenisha puncture immediately after or during the administration of Metamizole may lead to falsely low results. Testing should be performed immediately prior to Metamizole dosing. R-rxwfdn-o-benzoquinone imine (metabolite of Acetaminophen) will generate erroneously low results in samples for patients that have taken toxic doses of acetaminophen. Performed By: #### L IPAS #### [place] [id number] Provider Note - ED v3on 11-09 Provider [...] tenderness. Mild Rovsing. Negative heel strike and booster station operator., non-distended, no masses : MSK: No gross deformities appreciated Back: Non tender, no pain with ROM Skin: Warm, dry. No rashes Neuro: Alert and oriented x4, GCS 15 , merchandise executive II-XII grossly intact. Sensation and motor function of extremities grossly intact. Psych: Appropriate mood and affect. I have reviewed and confirmed nurses/medics notes for patient past, social and family history. Portions of this note were dictated by speech recognition. An attempt at proof reading was made to minimize errors. Minor errors in bone char operator may be present. HISTORY OF PRESENTING [...] Reference Range: STRAW,YELLOW Appearance, Urine HAZY Specific [place], Urine 1.005 pH, Urine 7.0 Protein, Urine [...] with IV Contrast [Nov 30 2021 4:35PM] MDM MDM/ED COURSE: 0-final results reviewed with patient who rest in bed in no acute distress. Work-up is unremarkable as noted below. Patient comfortable discharge home at this time. Your lab work, urinalysis, and CAT scan today did not show any concerning (more content not included)... Normal [facility] Risk Screen - Adult Emergenc yon 11-30-2021 [...] instruction; written material Cultural Considerationsnone Developmental Considerationsnone Quaker Considerationsnone Other Learnersfriend Learning Assessment (Other Learner): Learning Assessment (Other Learner): Other learner availableyes... Learnerfriend Factors Influencing Readiness to LearnN/A Factors that Impact Ability to Learnnone Devices/Methods Used to Communicatenone Learning Preferencesverbal instruction, written material Cultural Considerationsnone Developmental Considerationsnone Quaker Considerationsnone Pressure Injury/TB/Substance: Pressure Injury: Do you have a coughno Smoking Statusnever smoker Alcohol Useoccasionally Drug Usedenies Admission Risk Screen: Significant IndicatorsComplete CAGE: CAGE: Is this an injured patient at a Trauma Center ([facility]): no Electronic Signatures: Joya Hall (KIAN) (Signed 30-Nov-2021 14:57) Authored: Preferred Language, Advanced Directives, Family Violence Adult, Learning Assessment (Patient), Learning Assessment (Other Learner), Pressure Injury/TB/Substance, Pressure Injury, CAGE Last Updated: 30-Nov-2021 14:57 by Joya Hall (KIAN) [facility] Triage - EDon 11-30-2021 Triage - ED Quick Triage: Are You no Have You Given In The Last 6 Weeksno Are You Currently Breastfeedingno Chart Review: PRIMARY ASSESSMENT ABCD Normal Findings: airway open and patent, circulation normal and alert and oriented ARRIVAL INFORMATION Means of Arrival: Ambulatory Mode of Arrival: private vehicle Arrival From: home Accompanied By: self Language: Spoken Language Preferred: Kosovan Reading Language Preferred: Kosovan Present on Arrival: Device Present on Arrival [...] BMI (kg/m2): 28.048 Calculated BSA (m2) 1.70 Joe Coma Scale: Best Eye Response: (E4) spontaneous Best Motor Response: (M6) obeys commands Best Verbal Response: (V5) oriented [place] Score: 15 Allergies: no Last menstrual period: [...] Past Medical History Reviewedyes Electronic Signatures: Joya Hall) (Signed 30-Nov-2021 14:55) Entered: Risk Screens, Pain, Arrival, ABCD, Travel History, Chart Review, Scores, Past Medical History Authored: Quick Triage, Risk Screens, Pain, Arrival, ABCD, Travel History, Chart Review, Scores, Past Medical History Last Updated: 30-Nov-2021 14:55 by Joya Hall (RN) Normal [facility] UA MICROSCOPICon 11-30-2021 BACTERIA 1+ /HPF Abnormal [facility] Comment on above: Performed By: #### U AMIC #### [address] [address] Mucus Ql (Urine sed) 1+ /LPF Normal [facility] Comment on above: Performed By: #### U AMIC #### [address] [address] RBC (U) [#/Vol] /uL Normal 0-5 [facility] Comment on above: Performed By: #### U AMIC #### [address] [address] SQUAMOUS EPITH. CELLS 10 /HPF Normal [facility] Comment on above: Performed By: #### U AMIC #### [address] [address] WBC 1 /HPF Normal 0-5 [facility] Comment on above: Performed By: #### U AMIC #### [address] [address] URINALYSISon 11-30-2021 Appearance (U) HAZY Normal CLEAR [facility] Comment on above: Performed By: #### U A #### [address] [address] Bilirubin Ql (U) Negative Normal NEGATIVE [facility] Comment on above: Performed By: #### U A #### [address] [address] Color (U) Straw Normal STRAW,YELLOW [facility] Comment on above: Performed By: #### U A #### [address] [address] Glucose Ql (U) Negative Normal NEGATIVE [facility] Comment on above: Performed By: #### U A #### [address] [address] Hemoglobin Ql (U) LARGE(3+) Abnormal NEGATIVE [facility] Comment on above: Performed By: #### U A #### [address] [address] Ketones Ql (U) Negative Normal NEGATIVE [facility] Comment on above: Performed By: #### U A #### [place] [id number] Leukocyte esterase Test strip Ql (U) Negative Normal NEGATIVE [facility] Comment on above: Performed By: #### U A #### [address] [address] Nitrite Ql (U) Negative Normal NEGATIVE [facility] Comment on above: Performed By: #### U A #### [place] [id number] pH (U) 7.0 [pH] Normal 5.0 - 8.0 [facility] Comment on above: Performed By: #### U A #### [address] [address] Protein Ql (U) Negative Normal NEGATIVE [facility] Comment on above: Performed By: #### U A #### [address] [address] Specific gravity (U) [Rel density] 1.005 Normal 1.005 - 1.035 [facility] Comment on above: Performed By: #### U A #### [address] [address] Urobilinogen (U) [Mass/Vol] mg/dL Normal 0.0 - 1.9 [facility] Comment on above: Performed By: #### U A #### [address] [address] Vital Signs Date Time Vital Sign Value Performing Clinician Facility 02-26-2025 16:37-0400 Body temperature 97.8 [degF] Minerva LUBIN Work Phone: [facility] 02-26-2025 16:37-0400 Diastolic blood pressure 74 mm[Hg] Minerva Flower METAL BUGGY OPERATOR-C Work Phone: [facility] 02-26-2025 16:37-0400 Heart rate 95 /min Minerva Flower METAL BUGGY OPERATOR-C Work Phone: [facility] 02-26-2025 16:37-0400 Respiratory rate 16 /min Minerva Flower METAL BUGGY OPERATOR-C Work Phone: [facility] 02-26-2025 16:37-0400 Systolic blood pressure 112 mm[Hg] Minerva Flower METAL BUGGY OPERATOR-C Work Phone: [facility] 02-26-2025 16:25-0400 Body height 157.48 cm Minerva Flower METAL BUGGY OPERATOR-C Work Phone: [facility] 02-26-2025 16:25-0400 Body mass index (BMI) [Ratio] 35.5 kg/m2 Minerva Flower METAL BUGGY OPERATOR-C Work Phone: [facility] 02-26-2025 16:25-0400 Body weight 88.1 kg Minerva Flower METAL BUGGY OPERATOR-C Work Phone: [facility] 02-20-2025 09:11-0400 Body height 157.48 cm Minerva Flower METAL BUGGY OPERATOR-C Work Phone: [facility] 02-20-2025 09:11-0400 Body mass index (BMI) [Ratio] 35.7 kg/m2 Minerva Flower METAL BUGGY OPERATOR-C Work Phone: [facility] 02-20-2025 09:11-0400 Body weight 88.7 kg Minerva Flower METAL BUGGY OPERATOR-C Work Phone: [facility] 02-19-2025 07:41-0400 Diastolic blood pressure 72 mm[Hg] Minerva Flower METAL BUGGY OPERATOR-C Work Phone: [facility] 02-19-2025 07:41-0400 Heart rate 87 /min Minerva Flower METAL BUGGY OPERATOR-C Work Phone: [facility] 02-19-2025 07:41-0400 Systolic blood pressure 121 mm[Hg] Minerva Flower METAL BUGGY OPERATOR-C Work Phone: [facility] 02-19-2025 07:36-0400 Body temperature 97.9 [degF] Minerva Flower METAL BUGGY OPERATOR-C Work Phone: [facility] 02-19-2025 07:36-0400 Respiratory rate 16 /min Minerva Flower METAL BUGGY OPERATOR-C Work Phone: [facility] 02-19-2025 07:27-0400 Body height 157.48 cm Minerva Flower METAL BUGGY OPERATOR-C Work Phone: [facility] 02-19-2025 07:27-0400 Body mass index (BMI) [Ratio] 35.6 kg/m2 Minerva Flower METAL BUGGY OPERATOR-C Work Phone: [facility] 02-19-2025 07:27-0400 Body weight 88.5 kg Minerva Flower METAL BUGGY OPERATOR-C Work Phone: [facility] 02-18-2025 14:09-0400 Body height 157.48 cm Minerva Flower METAL BUGGY OPERATOR-C Work Phone: [facility] 02-18-2025 14:08-0400 Body mass index (BMI) [Ratio] 35.8 kg/m2 Minerva Flower METAL BUGGY OPERATOR-C Work Phone: [facility] 02-18-2025 14:08-0400 Body weight 88.9 kg Minerva Flower METAL BUGGY OPERATOR-C Work Phone: [facility] 02-18-2025 14:08-0400 Diastolic blood pressure 76 mm[Hg] Minerva Flower METAL BUGGY OPERATOR-C Work Phone: [facility] 02-18-2025 14:08-0400 Systolic blood pressure 113 mm[Hg] Minerva Flower METAL BUGGY OPERATOR-C Work Phone: [facility] 02-03-2025 13:42-0400 Body height 157.48 cm Minerva Flower METAL BUGGY OPERATOR-C Work Phone: [facility] 02-03-2025 13:42-0400 Body mass index (BMI) [Ratio] 35.4 kg/m2 Minerva Flower METAL BUGGY OPERATOR-C Work Phone: [facility] 02-03-2025 13:42-0400 Body weight 87.71 kg Minerva Flower METAL BUGGY OPERATOR-C Work Phone: [facility] 02-03-2025 13:42-0400 Diastolic blood pressure 80 mm[Hg] Minerva Flower METAL BUGGY OPERATOR-C Work Phone: [facility] 02-03-2025 13:42-0400 Systolic blood pressure 108 mm[Hg] Minerva Flower METAL BUGGY OPERATOR-C Work Phone: [facility] 01-20-2025 14:36-0400 Body height 157.48 cm Minerva Flower METAL BUGGY OPERATOR-C Work Phone: [facility] 01-20-2025 14:36-0400 Body mass index (BMI) [Ratio] 34.7 kg/m2 Minerva Flower METAL BUGGY OPERATOR-C Work Phone: [facility] 01-20-2025 14:36-0400 Body weight 86.18 kg Minerva Flower METAL BUGGY OPERATOR-C Work Phone: [facility] 01-20-2025 14:36-0400 Diastolic blood pressure 75 mm[Hg] Minerva Flower METAL BUGGY OPERATOR-C Work Phone: [facility] 01-20-2025 14:36-0400 Systolic blood pressure 115 mm[Hg] Minerva Flower METAL BUGGY OPERATOR-C Work Phone: [facility] 01-06-2025 12:59-0400 Body height 157.48 cm Minerva Flower METAL BUGGY OPERATOR-C Work Phone: [facility] 01-06-2025 12:59-0400 Body mass index (BMI) [Ratio] 34.4 kg/m2 Minerva Flower METAL BUGGY OPERATOR-C Work Phone: [facility] 01-06-2025 12:59-0400 Body weight 85.44 kg Minerva Flower METAL BUGGY OPERATOR-C Work Phone: [facility] 01-06-2025 12:59-0400 Diastolic blood pressure 86 mm[Hg] Minerva Flower METAL BUGGY OPERATOR-C Work Phone: [facility] 01-06-2025 12:59-0400 Systolic blood pressure 131 mm[Hg] Minerva Flower METAL BUGGY OPERATOR-C Work Phone: [facility] 12-18-2024 14:03-0400 Body mass index (BMI) [Ratio] 33.1 kg/m2 Minerva Flower METAL BUGGY OPERATOR-C Work Phone: [facility] 12-18-2024 14:03-0400 Body weight 82.27 kg Minerva Flower METAL BUGGY OPERATOR-C Work Phone: [facility] 12-18-2024 14:03-0400 Diastolic blood pressure 77 mm[Hg] Minerva Flower METAL BUGGY OPERATOR-C Work Phone: [facility] 12-18-2024 14:03-0400 Systolic blood pressure 112 mm[Hg] Minerva Flower METAL BUGGY OPERATOR-C Work Phone: [facility] 11-18-2024 15:40-0400 Body height 157.48 cm Minerva Flower METAL BUGGY OPERATOR-C Work Phone: [facility] 11-18-2024 15:40-0400 Body mass index (BMI) [Ratio] 32.3 kg/m2 Minerva Flower METAL BUGGY OPERATOR-C Work Phone: [facility] 11-18-2024 15:40-0400 Body weight 80.34 kg Minerva Flower METAL BUGGY OPERATOR-C Work Phone: [facility] 11-18-2024 15:40-0400 Diastolic blood pressure 72 mm[Hg] Minerva Flowre METAL BUGGY OPERATOR-C Work Phone: [facility] 11-18-2024 15:40-0400 Systolic blood pressure 114 mm[Hg] Minerva Flower METAL BUGGY OPERATOR-C Work Phone: [facility] 10-22-2024 14:18-0500 Body mass index (BMI) [Ratio] 31.5 kg/m2 Minerva Flower METAL BUGGY OPERATOR-C Work Phone: [facility] 10-22-2024 14:18-0500 Body weight 78.13 kg Minerva Flower METAL BUGGY OPERATOR-C Work Phone: [facility] 10-22-2024 14:18-0500 Diastolic blood pressure 74 mm[Hg] Minerva Flower METAL BUGGY OPERATOR-C Work Phone: [facility] 10-22-2024 14:18-0500 Systolic blood pressure 118 mm[Hg] Minerva Flower METAL BUGGY OPERATOR-C Work Phone: [facility] 09-23-2024 13:32-0500 Body mass index (BMI) [Ratio] 30.5 kg/m2 Minerva Flower METAL BUGGY OPERATOR-C Work Phone: [facility] 09-23-2024 13:32-0500 Body weight 75.74 kg Minerva Flower METAL BUGGY OPERATOR-C Work Phone: [facility] 09-23-2024 13:32-0500 Diastolic blood pressure 81 mm[Hg] Minerva Flower METAL BUGGY OPERATOR-C Work Phone: [facility] 09-23-2024 13:32-0500 Systolic blood pressure 119 mm[Hg] Minerva Flower METAL BUGGY OPERATOR-C Work Phone: [facility] 08-22-2024 14:24-0500 Body mass index (BMI) [Ratio] 21.9 kg/m2 Minerva Flower METAL BUGGY OPERATOR-C Work Phone: [facility] 08-22-2024 14:24-0500 Body weight 54.43 kg Minerva Flower METAL BUGGY OPERATOR-C Work Phone: [facility] 08-22-2024 14:24-0500 Diastolic blood pressure 86 mm[Hg] Minerva Flower METAL BUGGY OPERATOR-C Work Phone: [facility] 08-22-2024 14:24-0500 Systolic blood pressure 120 mm[Hg] Minerva Flower METAL BUGGY OPERATOR-C Work Phone: [facility] 08-13-2024 14:05-0500 Body mass index (BMI) [Ratio] 30.4 kg/m2 Minerva Flower METAL BUGGY OPERATOR-C Work Phone: [facility] 08-13-2024 14:05-0500 Body weight 75.52 kg Minerva Flower METAL BUGGY OPERATOR-C Work Phone: [facility] 08-13-2024 14:05-0500 Diastolic blood pressure 81 mm[Hg] Minerva Flower METAL BUGGY OPERATOR-C Work Phone: [facility] 08-13-2024 14:05-0500 Systolic blood pressure 122 mm[Hg] Minerva Flower METAL BUGGY OPERATOR-C Work Phone: [facility] 08-11-2024 11:46-0500 Body mass index (BMI) [Ratio] 30.4 kg/m2 Minerva Flower METAL BUGGY OPERATOR-C Work Phone: [facility] 08-11-2024 11:46-0500 Body weight 75.46 kg Minerva Flower METAL BUGGY OPERATOR-C Work Phone: [facility] 08-11-2024 11:46-0500 Diastolic blood pressure 84 mm[Hg] Minerva Flower METAL BUGGY OPERATOR-C Work Phone: [facility] 08-11-2024 11:46-0500 Systolic blood pressure 128 mm[Hg] Minerva Flower METAL BUGGY OPERATOR-C Work Phone: [facility] 07-29-2024 13:36-0500 Body height 157.5 cm Minerva Flower DATA ANALYSIS MANAGER-FABRIC AWNING REPAIRER Work Phone: [facility] 07-29-2024 13:36-0500 Body mass index (BMI) [Ratio] 30.84 kg/m2 Minerva Flower DATA ANALYSIS MANAGER-FABRIC AWNING REPAIRER Work Phone: [facility] 07-29-2024 13:36-0500 Body weight 76.48 kg Minerva Flower DATA ANALYSIS MANAGER-FABRIC AWNING REPAIRER Work Phone: [facility] 07-25-2024 16:17-0500 Body height 157.5 cm Minerva Flower DATA ANALYSIS MANAGER-FABRIC AWNING REPAIRER Work Phone: [facility] 07-25-2024 16:17-0500 Body mass index (BMI) [Ratio] 30.8 kg/m2 Minerva Flower DATA ANALYSIS MANAGER-FABRIC AWNING REPAIRER Work Phone: [facility] 07-25-2024 16:17-0500 Body weight 76.39 kg Minerva Flower DATA ANALYSIS MANAGER-FABRIC AWNING REPAIRER Work Phone: [facility] 07-25-2024 16:17-0500 Diastolic blood pressure 85 mm[Hg] Minerva Flower DATA ANALYSIS MANAGER-FABRIC AWNING REPAIRER Work Phone: [facility] 07-25-2024 16:17-0500 Heart rate 78 /min Minerva Flower DATA ANALYSIS MANAGER-FABRIC AWNING REPAIRER Work Phone: [facility] 07-25-2024 16:17-0500 Systolic blood pressure 122 mm[Hg] Minerva Flower DATA ANALYSIS MANAGER-FABRIC AWNING REPAIRER Work Phone: [facility] 11-30-2021 18:42-0400 Diastolic blood pressure 83 mm[Hg] Text Entry [facility] 11-30-2021 18:42-0400 Heart rate 98 /min Text Entry [facility] 11-30-2021 18:42-0400 Respiratory rate 18 /min Text Entry [facility] 11-30-2021 18:42-0400 SaO2% (BldA) [Mass fraction] 100 % Text Entry [facility] 11-30-2021 18:42-0400 Systolic blood pressure 123 mm[Hg] Text Entry [facility] 11-30-2021 16:50-0400 Body height 154.9 cm Text Entry [facility] 11-30-2021 16:50-0400 Body temperature 97.52 [degF] Text Entry [facility] 11-30-2021 16:50-0400 Body weight 67.3 kg Text Entry [facility] Encounters Encounter Date Encounter Type Care Provider Facility Start: 02-26-2025 End: 02-26-2025 ambulatory Minerva LUBIN Work Phone: [facility] Work Phone: Start: 02-26-2025 End: 02-26-[address] María Elena Solomon DO [facility] Work Phone: Start: 02-21-2025 ambulatory Amber Dyer Facilit y:[facility] Start: 02-21-2025 Non-patient / Non-visit Amber acuna [facility] Start: 02-20-2025 End: 02-20-2025 Patient encounter procedure Amber Dyer [facility] Work Phone: Start: 02-20-2025 End: 02-20-2025 ambulatory Minerva Flower METAL BUGGY OPERATOR-C Work Phone: [facility] Work Phone: Start: 02-19-2025 ambulatory María Elena Cruzty:[facility] Start: 02-19-2025 Non-patient / Non-visit Elle Sainzmila [facility] Start: 02-19-2025 End: 02-19-2025 ambulatory Minerva Flower METAL BUGGY OPERATOR-C Work Phone: [facility] Work Phone: Start: 02-19-2025 End: 02-19-[address] María Elena Solomon DO -[facility] Work Phone: Start: 02-18-2025 End: 02-18-[address] María Elena Solomon DO -Laboratory Specimen Work Phone: Start: 02-18-2025 End: 02-18-2025 ambulatory Minerva Flower Facility:[facility] Start: 02-18-2025 End: 02-18-[address] María Elena Solomon DO -[facility] Work Phone: Start: 02-18-2025 End: 02-18-2025 ambulatory Minerva Flower METAL BUGGY OPERATOR-C Work Phone: [facility] Work Phone: Start: 02-03-2025 End: 02-03-2025 Patient encounter procedure Chioma Springer NP-C -[facility] Work Phone: Start: 02-03-2025 End: 02-03-2025 ambulatory Minerva Kolby Flower METAL BUGGY OPERATOR-C Work Phone: [facility] Work Phone: Start: 02-03-2025 End: 02-03-2025 ambulatory Minerva Flower Facility:[facility] Start: 01-20-2025 End: 01-20-2025 Patient encounter procedure Amber Dyer [facility] -[facility] Work Phone: Start: 01-20-2025 End: 01-20-2025 ambulatory Minerva Kolby GarciaFlower METAL BUGGY OPERATOR-C Work Phone: [facility] Work Phone: Start: 01-13-2025 End: 01-13-2025 ambulatory MD [facility] Start: 01-08-2025 End: 01-08-2025 ambulatory Minerva Flower METAL BUGGY OPERATOR-C Work Phone: [facility] Work Phone: Start: 01-08-2025 End: 01-08-[address] María Elena Solomon DO [facility] Work Phone: Start: 01-08-2025 End: 01-08-2025 ambulatory Minerva Flower Facility:[facility] Start: 01-06-2025 End: 01-06-2025 ambulatory Minerva Flower METAL BUGGY OPERATOR-C Work Phone: [facility] Work Phone: Start: 01-06-2025 End: 01-06-2025 Patient encounter procedure Elle Poe [facility] -[facility] Work Phone: Start: 01-06-2025 End: 01-06-2025 ambulatory Minerva Flower Facility:[facility] Start: 12-18-2024 End: 12-18-[address] María Elena Solomon DO -[facility] Work Phone: Start: 12-18-2024 End: 12-18-2024 ambulatory Minerva Flower Facility:[facility] Start: 11-18-2024 End: 11-18-2024 Patient encounter procedure Chioma Isidrotings METAL BUGGY OPERATOR-C -[facility] Work Phone: Start: 11-18-2024 End: 11-18-2024 ambulatory Minerva Flower Facility:[facility] Start: 11-10-2024 End: 11-10-2024 ambulatory Minerva Flower METAL BUGGY OPERATOR-C Work Phone: [facility] Work Phone: Start: 11-10-2024 End: 11-10-[address] Radha Peters MD -[facility] Work Phone: Start: 11-10-2024 End: 11-10-2024 ambulatory Minerva Flower Facility:[facility] Start: 10-22-2024 End: 10-22-2024 Patient encounter procedure Chioma Pueblojovany VALENTINEC -Laboratory, Specimen Work Phone: Start: 10-22-2024 End: 10-22-2024 Patient encounter procedure Chioma Pueblo METAL BUGGY OPERATOR-C -[facility] Work Phone: Start: 10-22-2024 End: 10-22-2024 ambulatory Chioma Gian Facility:[facility] Start: 10-22-2024 End: 10-22-2024 ambulatory Minerva Flower Facility:[facility] Start: 09-23-2024 End: 09-23-[address] Radha Peters MD -[facility] Work Phone: Start: 09-23-2024 End: 09-23-2024 ambulatory Minerva Flower Facility:[facility] Start: 09-16-2024 End: 09-16-2024 ambulatory [facility] Ambulatory Start: 09-15-2024 End: 09-15-[address] Radha Peters MD -Lab, [facility] Start: 09-15-2024 End: 09-15-2024 ambulatory Minerva Flower Facility:[facility] Start: 08-22-2024 End: 08-22-[address] Radha Peters MD -Ultrasound, [facility] Work Phone: Start: 08-22-2024 End: 08-22-2024 Patient encounter procedure Elle Poe CNM -[facility] Work Phone: Start: 08-22-2024 End: 08-22-2024 ambulatory Minerva Flower Facility:[facility] Start: 08-22-2024 End: 08-22-2024 ambulatory Minerva Flower Facility:[facility] Start: 08-15-2024 Non-patient / Non-visit Faith herbert RN -[facility] Work Phone: Start: 08-15-2024 ambulatory Minerva Garcialey Facility:[facility] Start: 08-13-2024 End: 08-13-[address] Radha Peters MD -[facility] Work Phone: Start: 08-13-2024 End: 08-13-2024 ambulatory Minerva Flower Facility:[facility] Start: 08-11-2024 End: 08-11-[address] Radha Peters MD -Laboratory Work Phone: Start: 08-11-2024 End: 08-11-[address] Radha Peters MD -[facility] Work Phone: Start: 08-11-2024 End: 08-11-2024 ambulatory Minerva Flower Facility:[facility] Start: 08-11-2024 End: 08-11-2024 ambulatory Minerva Flower Facility:[facility] Start: 07-29-2024 End: 07-29-2024 ambulatory [facility] Start: 07-29-2024 End: 07-29-2024 Office outpatient visit 25 minutes Minerva Flower DATA ANALYSIS MANAGER-FABRIC AWNING REPAIRER Work Phone: [facility] Internal Medicine Comment on above: Leukocytosis, unspec ified type (Primary Dx); B12 deficiency; Vitamin D deficiency Start: 07-29-2024 End: 07-29-2024 ambulatory [facility] Ambulatory Start: 07-25-2024 End: 07-25-2024 Patient encounter status Minerva Flower DATA ANALYSIS MANAGER-FABRIC AWNING REPAIRER Work Phone: [facility] Work Phone: Start: 07-25-2024 End: 07-25-2024 Periodic preventive med est patient 18-39 yrs Minerva Jarrett Flower DATA ANALYSIS MANAGER-FABRIC AWNING REPAIRER Work Phone: [facility] Internal Medicine Comment on above: Wellness examination (Primary Dx); Vitamin D deficiency; Iron deficiency anemia, unspecified iron deficiency anemia type; Amenorrhea Start: 07-25-2024 End: 07-25-2024 ambulatory [facility] Kolby [facility] Start: 07-25-2024 End: 07-25-2024 Encounter for general adult medical examination without abnormal findings MINERVA Jarrett [facility] Start: 10-19-2023 End: 10-19-2023 ambulatory [facility] Kolby [facility] Ambulatory Start: 10-13-2023 End: 10-13-2023 ambulatory MINERVA Kolby [facility] Start: 07-05-2023 End: 07-05-2023 Office outpatient visit 25 minutes Minerva Flower DATA ANALYSIS MANAGER-FABRIC AWNING REPAIRER Work Phone: [facility] Internal Medicine Comment on above: Pharyngitis, unspeci fied etiology (Primary Dx) Start: 05-30-2023 Encounter for genera l adult medical examination without abnormal findings MINERVA Kolby [facility] Start: 05-30-2023 Patient encounter status Minerva Garcialey DATA ANALYSIS MANAGER-FABRIC AWNING REPAIRER Work Phone: [facility] Work Phone: Start: 11-30-2021 End: 11-30-2021 Emergency department patient visit [facility] Emergency 14 Procedures Date Procedure Procedure Detail Performing Clinician Start: 02-19-2025 Ultrasonography for antepartum monitoring of fetus Minerva Flower METAL BUGGY OPERATOR-C Work Phone: Start: 02-18-2025 Gram stain microscopy A jeanine Flower METAL BUGGY OPERATOR-C Work Phone: Start: 02-18-2025 Source specific culture Minerva Flower METAL BUGGY OPERATOR-C Work Phone: Start: 02-18-2025 Urine culture Minerva hanna METAL BUGGY OPERATOR-C Work Phone: Start: 01-08-2025 Ultrasound scan for growth Minerva Flower METAL BUGGY OPERATOR-C Work Phone: Start: 01-06-2025 Serologic test for syphilis Minerva Flower METAL BUGGY OPERATOR-C Work Phone: Start: 11-10-2024 Ultrasonography in f irst trimester Minerva Flower METAL BUGGY OPERATOR-C Work Phone: Start: 10-22-2024 End: 10-22-2024 Polymerase chain reaction analysis Minerva Flower METAL BUGGY OPERATOR-C Work Phone: Start: 08-22-2024 Transvaginal obstetr ic ultrasonography Minerva Flower METAL BUGGY OPERATOR-C Work Phone: Start: 08-22-2024 Urine culture Minerva hanna METAL BUGGY OPERATOR-C Work Phone: Start: 10-13-2023 CBC W Auto Different ial panel - Blood MINERVA FLOWER Start: 10-13-2023 Ferritin [Mass/volum e] in Serum or Plasma MINERVA FLOWER Start: 10-13-2023 IRON AND TIBC MINERVA Hanna Start: 10-13-2023 PTH, INTACT MINERVA FLOWER Start: 10-13-2023 VITAMIN D 25-HYDROXY,TOTAL MINERVA FLOWER Start: 05-23-2023 Lipid 1996 panel - S jamison or Plasma Minerva Flower DATA ANALYSIS MANAGER-FABRIC AWNING REPAIRER Work Phone: Plan of Treatment Date Care Activity Detail Author Start: 2048 Zoster Vaccines (1 of 2) Zoste r Vaccines (1 of 2) [facility] Start: 05-23-2028 Lipid panel Lipid Panel [facility] Start: 07-26-2025 Yearly Adult Physical Yearly Adult P hysical [facility] Start: 02-26-2025 Nonstress test [facility] Start: 02-26-2025 Obstetric monitoring [facility] Start: 02-26-2025 Vital signs measurements [facility] Start: 02-26-2025 [facility] Start: 02-26-2025 Patient discharge [facility] Start: 02-19-2025 Nonstress test [facility] Start: 02-19-2025 Obstetric monitoring [facility] Start: 02-19-2025 Vital signs measurements [facility] Start: 02-19-2025 [facility] Start: 02-19-2025 Patient discharge [facility] Start: 02-18-2025 Bacteria identified in Urine by Culture Urine Culture [facility] Start: 02-18-2025 Genital Culture Genital Culture [facility] Start: 02-18-2025 Microscopic observat ion [Identifier] in Unspecified specimen by Gram stain Gram Stain [facility] Start: 02-18-2025 Source specific culture [facility] Start: 02-18-2025 [facility] Start: 02-03-2025 CBC W Auto Different ial panel - Blood [facility] Start: 07-29-2024 End: 07-29-2025 CBC W Auto Differential panel - Blood CBC and Auto Differential Lab Routine Leukocytosis, unspecified type Expected: 07/29/2024 (Approximate), Expires: 07/29/2025 [facility] Service Area Work Phone: Comment on above: Expected: 07/29/2024 (Approximate), Expires: 07/29/2025 Start: 07-25-2024 End: 07-25-2025 25-hydroxyvitamin D3 [Mass/volume] in Serum or Plasma Vitamin D 25-Hydroxy,Total (for eval of Vitamin D levels) Lab Routine Vitamin D deficiency Expected: 07/25/2024 (Approximate), Expires: 07/25/2025 [facility] Work Phone: Comment on above: Expected: 07/25/2024 (Approximate), Expires: 07/25/2025 Start: 07-25-2024 End: 01-22-2026 CBC W Auto Differential panel - Blood CBC and Auto Differential Lab Routine Wellness examination Expected: 07/25/2024 (Approximate), Expires: 01/22/2026 [facility] Work Phone: Comment on above: Expected: 07/25/2024 (Approximate), Expires: 01/22/2026 Start: 07-25-2024 End: 07-25-2025 Choriogonadotropin.beta subunit [Units/volume] in Serum or Plasma Human Chorionic Gonadotropin, Serum Quantitative Lab Routine Amenorrhea Expected: 07/25/2024 (Approximate), Expires: 07/25/2025 [facility] Work Phone: Comment on above: Expected: 07/25/2024 (Approximate), Expires: 07/25/2025 Start: 07-25-2024 End: 07-25-2025 Cobalamin (Vitamin B12) [Mass/volume] in Serum or Plasma Vitamin B12 Lab Routine Iron deficiency anemia, unspecified iron deficiency anemia type Expected: 07/25/2024 (Approximate), Expires: 07/25/2025 [facility] Work Phone: Comment on above: Expected: 07/25/2024 (Approximate), Expires: 07/25/2025 Start: 07-25-2024 End: 07-25-2025 Comprehensive metabolic 2000 panel - Serum or Plasma Comprehensive Metabolic Panel Lab Routine Wellness examination Expected: 07/25/2024 (Approximate), Expires: 07/25/2025 [facility] Work Phone: Comment on above: Expected: 07/25/2024 (Approximate), Expires: 07/25/2025 Start: 07-25-2024 End: 07-25-2025 Ferritin [Mass/volume] in Serum or Plasma Ferritin Lab Routine Iron deficiency anemia, unspecified iron deficiency anemia type Expected: 07/25/2024 (Approximate), Expires: 07/25/2025 [facility] Work Phone: Comment on above: Expected: 07/25/2024 (Approximate), Expires: 07/25/2025 Start: 07-25-2024 End: 07-25-2025 Hemoglobin A1c/Hemoglobin.total in Blood Hemoglobin A1C Lab Routine Wellness examination Expected: 07/25/2024 (Approximate), Expires: 07/25/2025 [facility] Service Area Work Phone: Comment on above: Expected: 07/25/2024 (Approximate), Expires: 07/25/2025 Start: 07-25-2024 End: 07-25-2025 Iron and Iron binding capacity panel - Serum or Plasma Iron and TIBC Lab Routine Iron deficiency anemia, unspecified iron deficiency anemia type Expected: 07/25/2024 (Approximate), Expires: 07/25/2025 [facility] Work Phone: Comment on above: Expected: 07/25/2024 (Approximate), Expires: 07/25/2025 Start: 07-25-2024 End: 07-25-2025 Lipid 1996 panel - Serum or Plasma Lipid Panel Lab Routine Wellness examination Expected: 07/25/2024 (Approximate), Expires: 07/25/2025 [facility] Work Phone: Comment on above: Expected: 07/25/2024 (Approximate), Expires: 07/25/2025 Start: 07-25-2024 End: 07-25-2025 Parathyrin.intact [Mass/volume] in Serum or Plasma Parathyroid Hormone, Intact Lab Routine Vitamin D deficiency Expected: 07/25/2024 (Approximate), Expires: 07/25/2025 [facility] Work Phone: Comment on above: Expected: 07/25/2024 (Approximate), Expires: 07/25/2025 Start: 07-25-2024 End: 07-25-2025 TSH with reflex to Free T4 if abnormal TSH with reflex to Free T4 if abnormal Lab Routine Wellness examination Expected: 07/25/2024 (Approximate), Expires: 07/25/2025 [facility] Work Phone: Comment on above: Expected: 07/25/2024 (Approximate), Expires: 07/25/2025 Start: 06-03-2024 End: 06-03-2024 Patient encounter procedure 06/03/2024 3:20 PM EDT Office Visit [facility] Internal Medicine [address] [place] [address] Minerva Flower, DATA ANALYSIS MANAGER-FABRIC AWNING REPAIRER [address] [place] [address] [facility] Internal Medicine Start: 05-31-2024 Yearly Adult Physical Yearly Adult P hysical [facility] Start: 05-11-2024 COVID-19 Vaccine ( season) COVID-19 Vaccine ( season) [facility] Start: 05-11-2024 Influenza vaccination Influenza Vacc ine (#1) [facility] Start: 05-11-2023 Influenza vaccination Influenza Vacc ine (#1) [facility] Start: 2020 DTaP/Tdap/Td Vaccine s (1 - Tdap) DTaP/Tdap/Td Vaccines (1 - Tdap) [facility] Start: 2019 Screening for malign ant neoplasm of cervix [facility] Start: 2017 Hepatitis B Vaccines (1 of 3 - 19+ 3-dose series) Hepatitis B Vaccines (1 of 3 - 19+ 3-dose series) [facility] Start: 2016 Hepatitis C screening Hepatitis C [facility] Start: 2013 HPV Vaccines (1 - 3- dose series) HPV Vaccines (1 - 3-dose series) [facility] Start: 2011 Varicella vaccination Varicell a Vaccines (1 of 2 - 13+ 2-dose series) [facility] Start: 2009 HPV Vaccines (1 - 2- dose series) HPV Vaccines (1 - 2-dose series) [facility] Start: 1999 MMR Vaccines (1 of 1 - Standard series) MMR Vaccines (1 of 1 - Standard series) [facility] Start: 1999 Varicella vaccination Varicell a Vaccines (1 of 2 - 2-dose childhood series) [facility] Start: 01-19-1999 COVID-19 Vaccine (#1) COVID-19 Vacci ne (#1) [facility] Start: 1998 Hepatitis B Vaccines (1 of 3 - 3-dose series) Hepatitis B Vaccines (1 of 3 - 3-dose series) [facility] Start: 1998 HIV screening HIV Screening [facility] Erythrocyte mean corpuscular volume determination [facility] Genital microscopy, culture and sensitivities [facility] Hematocrit [Volume Fraction] of Blood [facility] Hemoglobin [Mass/vol ume] in Blood [facility] Leukocytes [#/volume ] in Blood [facility] Liquid based cervica l cytology screening [facility] Mean corpuscular hemoglobin concentration determination [facility] Mean corpuscular hemoglobin determination [facility] Microscopic observat ion [Identifier] in Unspecified specimen by Gram stain [facility] Neutrophil count [facility] Neutrophil percent differential count [facility] Patient Education Kick Counts ED False Labor OB Triage: Return to Hospital or Notify Physician if you Experience: [facility] Work Phone: Patient referral [facility] Work Phone: Platelets [#/volume] in Blood [facility] Red blood cell count [facility] Red cell distributio n width determination [facility] Source specific culture [facility] Urine culture [facility] Payers Date Payer Category Payer Unknown [id number] 2024 Self-pay 2023 Managed Care (Private) [facility] PLAN [id number] 2023 Private Health Insurance [id number] 2020 Private Health Insurance AETMARYANN ORR [facility] [id number] 2020-Present [address] [place] [address] [id number]. [id number] 1998 Unknown [id number] 2.16840.1.941299.3.579. 2.1245 1998 Unknown [id number] 2.16.840.1.912560.3.579. 2.1245 1998 Unknown [id number] 2.16.840.1.379843.3.579. 2.1245 1998 Unknown [id number] 2.840.1.855715.3.579. 2.124 1998 Unknown [id number] 2.840.1.134150.3.579. 2.124 1998 Unknown [id number] 2.840.1.024609.3.579. 2.124 1998 Unknown [id number] 2.840.1.867560.3.579. 2.124 1998 Unknown [id number] 2.840.1.434786.3.579. 2.479 1998 Unknown [id number] 2.840.1.781290.3.579. 2.479 Unknown AETNA\AETNA [facility] Unknown [id number] 2.16840.1.221875.3.579. 2.462 Unknown [id number] 2.840.1.032051.3.579. 2.462 Unknown [id number] 2.840.1.064876.3.579. 2.462 Unknown [id number] 2.840.1.715215.3.579. 2.462 Unknown [id number] 2.16840.1.632341.3.579. 2.462 Unknown [id number] 2.16840.1.403796.3.579. 2.462 Unknown [id number] 2.16840.1.749246.3.579. 2.462 Unknown [id number] 2.840.1.243138.3.579. 2.462 Unknown [id number] 2.16.840.1.916283.3.579. 2.462 Unknown [id number] 2.16.840.1.321586.3.579. 2.462 Unknown [id number] 2.16.840.1.042891.3.579. 2.462 Unknown [id number] 2.16.840.1.438657.3.579. 2.462 Unknown [id number] 2.16.840.1.656191.3.579. 2.462 Unknown [id number] 2.16.840.1.857839.3.579. 2.462 Unknown [id number] 2.16.840.1.793168.3.579. 2.462 Unknown [id number] 2.16.840.1.910380.3.579. 2.462 Unknown [id number] 2.16.840.1.712957.3.579. 2.462 Unknown [id number] 2.16.840.1.876209.3.579. 2.462 Unknown [id number] 2.16.840.1.406120.3.579. 2.462 Unknown [id number] 2.16.840.1.208358.3.579. 2.462 Unknown [id number] 2.16.840.1.742723.3.579. 2.462 Unknown [id number] 2.16.840.1.117974.3.579. 2.462 Unknown [id number] 2.16.840.1.135720.3.579. 2.462 Unknown [id number] 2.16.840.1.315548.3.579. 2.462 Unknown [id number] 2.16.840.1.608224.3.579. 2.462 Social History Date Type Detail Facility [facility] Tobacco smoking consumption unknown [facility] Start: 05-23-2023 End: 08-15-2024 Tobacco smoking status NHIS Never smoked tobacco [facility] Work Phone: Start: 05-23-2023 Tobacco use and exposure Smokeless tobacco non-user [facility] Work Phone: Start: 07-05-2023 End: 07-29-2024 Alcohol intake Current drinker of alcohol (finding) [facility] Work Phone: Start: 05-30-2023 End: 07-25-2024 History of Social function [facility] Work Phone: Start: 05-30-2023 End: 07-25-2024 Tobacco use panel [facility] Work Phone: Start: 05-23-2023 [facility] Start: 05-23-2023 Alcohol Comment Occasional alc hohol use. Once per month at maximum. [facility] Work Phone: Start: 2000 [facility] Start: 06-25-2023 End: 07-29-2024 Exposure to SARS-CoV-2 (event) Unable to assess [facility] Work Phone: Start: 07-15-2024 End: 07-25-2024 Exposure to SARS-CoV-2 (event) Not sure [facility] Start: 11-21-2024 Sex Female (finding) [facility] Start: 2000 Sex Assigned At Female W [facility] Clinical Notes 07-02-2023 to 02-19-2025 Note Date & Type Note Facility 02-19-2025 Radiology Diagnostic study note [facility] Imaging Services [address] [place] [address] OB Limited (No Biometrics) MR#: [id number] Acct: [id number] Name: MADDIE TORRE Rep #: [id number] : 2000 F 24 From: Sanjiv Montero MD PCP: SERGE QuinterosC Status: REG CLI Study:OB Limited (No Biometrics) Date of Exam : 02/19/25 Exam# [id number] Ordering Dr: Elle Poe CNM PROCEDURE: OB LIMITED (NO BIOMETRICS) 02/19/2025 REASON FOR EXAM: EDITH AND PLACENTA TECHNIQUE: High resolution obstetric ultrasound performed using a 2D transducer. Standard views obtained, including biometry, anatomy survey, and Doppler studies. COMPARISON: Prior study dated January 08, 2025. FINDINGS Number: 1 Position: Breech Placental Position: Anterior and right lateral. Not low-lying. Placental Abnormalities: No evidence of previa. ESTIMATED GESTATIONAL AGE: Baseline: 33 weeks and 3 days ESTIMATED DATE OF DELIVERY: Baseline: April 06, 2025 BIOPHYSICAL ASSESSMENT: Amniotic Fluid Volume: 5.6 cm Amniotic Fluid Index: 12.3 (8-24 cm normal range) Cardiac Motion: 136 beats per minute (average) Trunk and Limb Motion: Present. MATERNAL ANATOMY: Adnexa: Neither maternal ovary is successfully identified. US/OB Limited (No Biometrics) IMPRESSION: Normal amniotic fluid index. No evidence of placenta previa. Reading Location: [place] [address] CC: AMAIRANI Poe; METAL BUGGY OPERATOR-C Minerva Flower ~ Coil Wrapper: Signed [facility] 02-18-2025 Progress note [facility] 02-18-2025 Progress note Note Date/Time February 18, 2025 2:47pm [facility] [address] [place] [address], [address] [place] [address] OFFICE VISIT Date of Service: 02/18/25 MR#: [id number] Acct: [id number] Name: HARVEYMADDIE IVERSON Rep #: [id number] : 2000 Provider: Dr. 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 no complaints. needs f/u PACKAGE SEALER. ultrasound ordered. 01/06/25 -?-?-?-?-?-?-?-?-?-?-?-?- 27w 1d 188 [...] Circumcision preference, Signs and Symptoms of Preeclampsia, Infant Feeding No , [place] Education and Family Medical Leave or Disability [...] restriction: Status: Acute Comment: growth US 7%- [facility] referral for fu growth scan. due date [...] POC Urinalysis 2 Dip (Clinic) Today 02/18/25 2341 <Electronically signed by María Elena Arellano DO> Date _ María Elena Solomon DO Cosigner Signature: Date (if applicable) CC: ~ [facility] Work Phone: 1(455) 988-326205-27-2025 Progress note Author Chioma Springer [facility] Services Note Date/Time February 03, 2025 1:59p [facility] [address] [place] [address], [address] [place] [address] OFFICE VISIT Date of Service: 02/03/25 MR#: [id number] Acct: [id number] Name: MADDIE TORRE Rep #: [id number] : 2000 Provider: AMEE Springer Age/Sex: 24/F Location: [facility] Status: Signed Intake Vital Signs 09/23/24 13:32 01/20/25 14:36 02/03/25 13:42 Height 5 ft 2 in 5 ft 2 in 5 ft 2 in Weight: 190 lb 193 lb 6 oz BMI 34.7 35.4 BP 115/75 108/80 Intake Visit Reasons: 32 wk ob Chief Complaint: 32 Week OB Salon Customer Experience Specialist Required: No Is patient in pain?: No [...] occupational status: 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 no complaints. needs f/u PACKAGE SEALER. ultrasound ordered. 01/06/25 -?-?-?-?-?-?-?-?-?-?-?-?- 27w 1d 188 [...] restriction: Status: Acute Comment: growth US 7%- [facility] referral for fu growth scan. due date [...] Continue routine care and follow up. 02/03/25 8331 <Electronically signed by Chioma LUBIN> Date _ Chioma Akers Signature: Date (if applicable) CC: ~ [facility] Work Phone: 1(328) 260-709805-27-2025 Progress [facility] [address], [place] [address] OFFICE VISIT Date of Service: 02/03/25 MR#: [id number] Acct: [id number] Name: MADDIE TORRE Rep #: [id number] : 2000 Provider: AMEE Springer Age/Sex: 24/F Location[place] [facility] Status: Signed Intake Vital Signs 09/23/24 13:32 01/20/25 14:36 02/03/25 13:42 Height 5 ft 2 in 5 ft 2 in 5 ft 2 in Weight: 190 lb 193 lb 6 oz BMI 34.7 35.4 BP 115/75 108/80 Intake Visit Reasons: 32 wk ob Chief Complaint: 32 Week OB Salon Customer Experience Specialist Required: No Is patient in pain?: No [...] occupational status: 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 no complaints. needs f/u PACKAGE SEALER. ultrasound ordered. 01/06/25 -?-?-?-?-?-?-?-?-?-?-?-?- 27w 1d 188 lb 6 oz (+22 lb 6 oz) 131/86 Negative -?-?-?-?-?-?-?-?-?-?-?-?- Negative 150 28 -?-?-?-?-?-?-?-?-?-?-?-?- kw- no vb/lof/ct x. good fm. glucose today. tdap and larc declined 05/13/25 -?-?-?-?-?-?-?-?-?-?-?-?- 29w 1d 190 lb (+24 lb) [...] Yes No, Signs and Symptoms of Preeclampsia, Infant Feeding No , [place] Education and Family Medical Leave or Disability [...] restriction: Status: Acute Comment: growth US 7%- [facility] referral for fu growth scan. due date [...] care and follow up. 02/03/25 1359 s METAL BUGGY OPERATOR METAL BUGGY OPERATOR-C> Date _ [place] METAL BUGGY OPERATOR METAL BUGGY OPERATOR-C Cosigner Signature: Date (if applicable) CC: ~ [facility]05-06-2025 [facility] CONSULTATION Referring Provider María Elena Croft, DO [address] [address] SUBJECTIVE Maddie Torre is a 24 y.o. [...] have any additional questions/concerns or would like [facility] to perform future ultrasound exams/ testing. Thank you for allowing me to participate in the care of your patient. Please do not hesitate to contact me if you have any questions or concerns. If findings at delivery differ from our evaluation, please provide us with follow-up for supervisor type disk quality control. The data contained in the above ultrasound report/consultation along with subsequent clinical management of the patient are the responsibility of the ordering provider. Sincerely, Stella Weaver MD, FACOG Maternal Medicine [place] The total time for today's visit is [...] Nausea, Disp: , Rfl: [3] [facility] Radiology Diagnostic study note [facility] Imaging Services [address] [place], [place] [id number] OB Limited With Biometrics MR#: [id number] Acct: [id number] Name: MADDIE TORRE Rep #: [id number] : 2000 F 24 From: Erlin Francis MD PCP: Minerva Flower METAL BUGGY OPERATOR-C Status: REG CLI Study:OB Limited With Biometrics Date of Exam : 01/08/25 Exam# [id number] Ordering Dr: María Elena Spain DO PROCEDURE: OB LIMITED WITH BIOMETRICS 01/08/2025 REASON FOR EXAM: FOLLOW UP PACKAGE SEALER TECHNIQUE: High resolution obstetric ultrasound performed using [...] WEIGHT PERCENTILE (24+ weeks): 7.2% Reading Location: [id number] CC: AMEE Flower; Dr. María Elena Solomon, DO ~ Coil Wrapper: Signed [facility]03-11-2025 Evaluation note* Diagnosis Onset Date Resolution Status Admit Date Chlamydia infection during acute November 18, 2024 [...] 2025 2:01pm Vegetarian diet acute February 2:01pm Anemia in preg-unspec acute Feb 6:50am Chlamydia infection during acute February 19, 2025 6:50am Family history of hemochromatosis acute February 19, 2025 6:50am H/O miscarriage, currently acute February 19, 2025 6:50am Obesity affecting acute February 19, 2025 6:50am acute February 19 6:50am affected by growth restriction acute February 19 6:50am Supervision of high-risk acute February 19, 2025 6:50am Vaginal bleeding during acute February 19, 2025 6:50am Vegetarian diet acute February 6:50am [facility] Work Phone: 1(565) 579-255103-11-2025 Evaluation note* Diagnosis Onset Date Resolution Status Admit Date Chlamydia infection during acute November 18, 2024 [...] 2025 2:01pm Vegetarian diet acute February 2:01pm Anemia in preg-unspec acute Feb 6:50am Chlamydia infection during acute February 19, 2025 6:50am Family history of hemochromatosis acute February 19, 2025 6:50am H/O miscarriage, currently acute February 19, 2025 6:50am Obesity affecting acute February 19, 2025 6:50am acute February 19 6:50am affected by growth restriction acute February 19 6:50am Supervision of high-risk acute February 19, 2025 6:50am Vaginal bleeding during acute February 19, 2025 6:50am Vegetarian diet acute February 6:50am Vaginal bleeding during acute February 20, 2025 8:52am [facility] Work Phone: 1(265) 669-388703-03-2025 Radiology Diagnostic study note [facility] Imaging Services [address] [place] [address] OB Anatomy w/ Transvaginal MR#: [id number] Acct: [id number] Name: MADDIE TORRE Rep #: [id number] : 2000 F 24 From: Sanjiv Montero MD PCP: SERGE QuinterosC Status: REG CLI Study:OB Anatomy w/ Transvaginal Date of Exam : 11/10/24 Exam# [id number] Ordering Dr: Radha Neal MD PROCEDURE: OB [...] cysts in both choroid plexus. Reading Location: [id number] CC: AMEE Flower; Dr. Radha Peters MD ~ Coil Wrapper: Signed [facility]02-12-2025 Evaluation note* Diagnosis Onset Date Resolution Status Admit Date Chlamydia infection during acute October 22, 025 2:09pm Family history of hemochromatosis acute October 22 025 2:09pm H/O miscarriage, currently acute October 22 025 2:09pm Obesity affecting acute October 22, 2024 2:09pm acute October 22, 2024 2:09pm Supervision of high-risk acute October 22 025 2:09pm Vegetarian diet acute October 22, [...] Vegetarian diet acute February 03, 2025 1:38pm [facility] Work Phone: 1(726) 709-120302-12-2025 Evaluation note* Diagnosis Onset Date Resolution Status [...] 2025 2:01pm Vegetarian diet acute February 2:01pm [facility] Work Phone: 1(825) 239-974001-14-2025 Evaluation note* Diagnosis Onset Date Resolution Status [...] 2025 12:36pm Vegetarian diet acute December 12:36pm [facility] Work Phone: 1(946) 432-861201-14-2025 Evaluation note* Diagnosis Onset Date Resolution Status Admit Date Chlamydia infection during acute September 23 1:26pm Family history of hemochromatosis acute September 23 1:26pm H/O miscarriage, currently acute September 23 1:26pm Obesity affecting acute September 23, 2024 1:26pm acute September 23, 2024 1:26pm Supervision of high-risk acute September 23 1:26pm Vegetarian diet acute September 102024 1:26pm Threatened resolved Janua ry 2024 1:26pm Chlamydia infection during acute October [...] Vegetarian diet acute January 20, 2025 2:23pm [facility] Work Phone: 1(326) 266-454312-02-2024 Evaluation note* Diagnosis Onset Date Resolution Status Admit Date Threatened resolved Decem ceci 2023 11:32am Threatened resolved Decem ceci 2023 1:57pm Family history of hemochromatosis acute August 22, 2 024 2:11pm H/O miscarriage, currently acute August 22, 2 024 2:11pm Obesity affecting acute August 22, 2024 2:11pm acute August 22, 2024 2:11pm Supervision of high-risk acute August 22, 2 024 2:11pm Vegetarian diet acute August 22, 2024 2:11pm Threatened resolved Decem ceci 2023 2:11pm Chlamydia infection during acute September 23 1:26pm Family history of hemochromatosis acute September 23 1:26pm H/O miscarriage, currently acute September 23 1:26pm Obesity affecting acute September 23, 2024 1:26pm acute September 23, 2024 1:26pm Supervision of high-risk acute September 23 1:26pm Vegetarian diet acute September 102024 1:26pm Threatened resolved Jan2024 1:26pm Chlamydia infection during acute October 22, 2 025 2:09pm Family history of hemochromatosis acute October 22, 2 025 2:09pm H/O miscarriage, currently acute October 22 025 2:09pm Obesity affecting acute October 22, 2024 2:09pm acute October 22, 2024 2:09pm Supervision of high-risk acute October 22 025 2:09pm Vegetarian diet acute October 22, 2024 2:09pm Chlamydia infection during acute November 18, 2024 3:36pm Family history of hemochromatosis acute November 18, 2024 3:36pm H/O miscarriage, currently acute November 18, 2024 3:36pm Obesity affecting acute November 18, 2024 3:36pm acute November 18 3:36pm Supervision of high-risk acute November 18, 2024 3:36pm Vegetarian diet acute November 3:36pm [facility] Work Phone: 1(272) 453-700811-15-2024 History of Present illness Narrative* Minerva Flower, DATA ANALYSIS MANAGER-FABRIC AWNING REPAIRER - 07/25/2024 4:20 PM EST Subjective Patient [...] CALL PER PATIENT REQUEST documented in this [facility] Work Phone: 1(830) 197-129310-23-2023 History of Present illness Narrative* KATHY Quinteros [...] Follow up as before [facility] Evaluation note* Diagnosis Pharyngitis, unspecified etiology- Primary documented in this encounter [facility] Work Phone: Evaluation note* Diagnosis Wellness examination- Primary Vitamin D deficiency Iron deficiency anemia, unspecified iron deficiency anemia type Amenorrhea Absence of menstruation documented in this encounter [facility] Work Phone: Evaluation note* Diagnosis Leukocytosis, unspecified type- Primary B12 deficiency Vitamin D deficiency documented in this encounter [facility] Work Phone: History of Present illness Narrative* Minerva Flower, FABIO-FABRIC AWNING REPAIRER - 07/29/2024 2:20 PM EST Subjective Patient [...] is not nervous/anxious. Objective Component Latest Ref Rng 07/25/2024 WBC 4.4 - 11.3 x10*3/uL 13.4 [...] Relevant Medications cholecalciferol (Vitamin D3) 50 MCG (1999) tablet Other Visit Diagnoses Leukocytosis, unspecified type [...] CALL PER PATIENT REQUEST [facility] Hospital Discharge instructions Additional Instructions [facility] 02/20[facility]25 at 0900 for repeat celestone injection [facility] Work Phone: Reason for referral (narrative)No reason for referral information availableWSelect [facility] Work Phone: Summary Purpose Family History Relationship [...] January 06, 2025 12: 36pm FOLLOW UP [facility] January 08, 2025 4:10pm Reason for Visit Admit Date Chlamydia infection during Endy uatricia 2024 1:26pm Family history of hemochromatosis Sachin y 2024 1:26pm H/O miscarriage, currently Daniel ch[place] 2024 1:26pm Obesity affecting September 1:26pm September 23, 2024 1 :26pm Supervision of high-risk Janua ry 2024 1:26pm Vegetarian diet September 23, 2024 1 :26pm Threatened September 23, 2024 1 :26pm Chlamydia infection during Feb ruary 2024 2:09pm Family history of hemochromatosis Februa ry 2024 2:09pm H/O miscarriage, currently ry 2024 2:09pm Obesity affecting October 2:09pm October 22, 2024 2:09pm Supervision of high-risk u ch[place] 2024 2:09pm Vegetarian diet October 22, [...] January 06, 2025 12: 36pm FOLLOW UP [facility] January 08, 2025 4:10pm 30 wk ob [...] January 06, 2025 12: 36pm FOLLOW UP [facility] January 08, 2025 4:10pm 30 wk ob [...] November 18, 2024 3:36pm H/O miscarriage, currently [facility] 2024 3:36pm Obesity affecting November 18, [...] January 06, 2025 12: 36pm FOLLOW UP [facility] January 08, 2025 4:10pm 30 wk ob [...] 18, 2025 2:01pm Obesity affecting February 18, 025 2:01pm February 18, 2025 2:01 pm affected by growth restr iction February 18, 2025 2:01pm Supervision of high-risk February 18, 2025 2:01pm Vegetarian diet February 18, 2025 2:01 pm Chief Complaint Admit Date 17 wk ob October 22, 2024 2:09pm ANATOMY November 10, 2024 1:13 pm 21 wk ob November 18, 2024 3:3 6pm 25 wk ob December 18, 2024 1:5 8pm INT LAB ORDERS January 06, 2025 11: 53am 28 wk ob/glucose January 06, 2025 12: 36pm FOLLOW UP [facility] January 08, 2025 4:10pm 30 wk ob January 20, 2025 2:23p m 32 wk ob February 03, 2025 1:38p m 33wk ob February 18, 2025 2:01 pm R/O BLEEDING February 19, 2025 6:50 am Chief Complaint Admit Date ANATOMY November 10, 2024 1:13 pm 21 wk ob November 18, 2024 3:3 6pm 25 wk ob December 18, 2024 1:5 8pm INT LAB ORDERS January 06, 2025 11: 53am 28 wk ob/glucose January 06, 2025 12: 36pm FOLLOW UP [facility] January 08, 2025 4:10pm 30 wk ob January 20, 2025 2:23p m 32 wk ob February 03, 2025 1:38p m 33wk ob February 18, 2025 2:01 pm R/O BLEEDING February 19, 2025 6:50 am R/O BLEEDING February 19, 2025 5:49 pm CELESTONE SHOT February 20, 2025 8:52 am Reason for Visit Admit Date Chlamydia infection during Mar 2024 3:36pm Family history of hemochromatosis November 18, 2024 3:36pm H/O miscarriage, currently [place] 2024 3:36pm Obesity affecting November 18, 2024 3:36pm November 18, 2024 3:3 6pm Supervision of high-risk November 18, 2024 3:36pm Vegetarian diet November 18, 2024 3:3 6pm Chlamydia infection during Apr 2024 1:58pm Family history of hemochromatosis December 18, 2024 1:58pm H/O miscarriage, currently Apri 2024 1:58pm Obesity affecting December 18, 2024 1:58pm December 18, 2024 1:5 8pm Supervision of high-risk December 18, 2024 1:58pm Vegetarian diet December 18, 2024 1:5 8pm Choroid plexus cyst of fetus in singleto n December 18, 2024 1:58pm Chlamydia infection during Apr md 2024 12:36pm Family history of hemochromatosis January [...] 18, 2025 2: 01pm Chlamydia infection during Feb 2:01pm Family history of hemochromatosis February 082024 2:01pm H/O miscarriage, currently February 18, 2025 2:01pm Obesity affecting February 18, 2 025 2:01pm February 18, 2025 2:01 pm affected by growth restr iction February 18, 2025 2:01pm Supervision of high-risk February 18, 2025 2:01pm Vegetarian diet February 18, 2025 2:01 pm Anemia in preg-unspec February 19, 2025 6: 50am Chlamydia infection during Feb 6:50am Family history of hemochromatosis February 082024 6:50am H/O miscarriage, currently February 19, 2025 6:50am Obesity affecting February 19, 025 6:50am February 19, 2025 6:50 am affected by growth restr iction February 19, 2025 6:50am Supervision of high-risk February 19, 2025 6:50am Vaginal bleeding during February 082024 6:50am Vegetarian diet February 19, 2025 6:50 am Chief Complaint Admit Date ANATOMY November 10, 2024 1:13 pm 21 wk ob November 18, 2024 3:3 6pm 25 wk ob December 18, 2024 1:5 8pm INT LAB ORDERS January 06, 2025 11: 53am 28 wk ob/glucose January 06, 2025 12: 36pm FOLLOW UP [facility] January 08, 2025 4:10pm 30 wk ob January 20, 2025 2:23p m 32 wk ob February 03, 2025 1:38p m 33wk ob February 18, 2025 2:01 pm R/O BLEEDING February 19, 2025 6:50 am R/O BLEEDING February 19, 2025 5:49 pm CELESTONE SHOT February 20, 2025 8:52 am CELESTONE SHOT February 21, 2025 8:27 pm Reason for Visit Admit Date Chlamydia infection during Mar 2024 3:36pm Family [...] 18, 2025 2: 01pm Chlamydia infection during Feb 2:01pm Family history of hemochromatosis February 082024 2:01pm H/O miscarriage, currently February 18, 2025 2:01pm Obesity affecting February 18 2 025 2:01pm February 18, 2025 2:01 pm affected by growth restr iction February 18, 2025 2:01pm Supervision of high-risk February 18, 2025 2:01pm Vegetarian diet February 18, 2025 2:01 pm Anemia in preg-unspec February 19, 2025 6: 50am Chlamydia infection during Feb 6:50am Family history of hemochromatosis February 082024 6:50am H/O miscarriage, currently February 19, 2025 6:50am Obesity affecting February 19, 2 025 6:50am February 19, 2025 6:50 am affected by growth restr iction [place] 12th, 2025 6:50am Supervision of high-risk February 19, 2025 6:50am Vaginal bleeding during February 082024 6:50am Vegetarian diet February 19, 2025 6:50 am Vaginal bleeding during February 082024 8:52am Chief Complaint Admit Date ANATOMY November 10, 2024 1:13 pm 21 wk ob November 18, 2024 3:3 6pm 25 wk ob December 18, 2024 1:5 8pm INT LAB ORDERS January 06, 2025 11: 53am 28 wk ob/glucose January 06, 2025 12: 36pm FOLLOW UP [facility] January 08, 2025 4:10pm 30 wk ob January 20, 2025 2:23p m 32 wk ob February 03, 2025 1:38p m 33wk ob February 18, 2025 2:01 pm R/O BLEEDING February 19, 2025 6:50 am R/O BLEEDING February 19, 2025 5:49 pm CELESTONE SHOT February 20, 2025 8:52 am CELESTONE SHOT February 21, 2025 8:27 pm R/O PRE TERM LABOR February 26, 2025 4:07 pm Additional Source Comments <item> Privacy Markings (unrecogniz ed section and content) Section Author: Kelsi Burrell PROHIBITION ON REDISCLOSURE OF CONFIDENTIAL INFORMATION This notice accompanies a disclosure of information concerning a client made to you with the consent of such client. INFORMATION SOURCE (unrecogn ized section and content) DATE CREATED AUTHOR 12/01/2021 [facility] DATE CREATED AUTHOR AUTHOR'S ORGANIZ ATION 08/05/2024 [facility] DATE CREATED AUTHOR AUTHOR'S ORGANIZ ATION 09/22/[address] [facility] DATE CREATED AUTHOR AUTHOR'S ORGANIZ ATION 01/16/2025 [facility] DATE CREATED AUTHOR AUTHOR'S ORGANIZ ATION 02/23/2025 [facility] Reason for Visit (unrecogniz ed section and content) Reason Comments Sore Throat Associated with davis newman Pt states she went to urgent care 07/02/23. No medication was prescribed.Pt state she was diagnosed with uri. Pt tested negative for covid 07/05/23. She states she is not feeling any better Reason Comments Annual Exam ANNUAL WELLNESS VISI T, PT IS , SHE JUST FOUND OUT THIS MORNING Reason Comments Follow-up [facility] Care Teams (unrecognized sec tion and content) Mobile Solutions Architect Relationship Specialty Start Date End Date Minerva Flower, DATA ANALYSIS MANAGER-FABRIC AWNING REPAIRER [address] [place] [address] PCP - General Internal Medicine 05/23/23 Mobile Solutions Architect Relationship Specialty Start Date End Date Minerva Flower DATA ANALYSIS MANAGER-FABRIC AWNING REPAIRER [address] [place] [address] PCP - General Internal Medicine 05/23/23 Mobile Solutions Architect Relationship Specialty Start Date End Date Minerva Flower, DATA ANALYSIS MANAGER-FABRIC AWNING REPAIRER [address] [place] [address] PCP - General Internal Medicine 05/23/23 Team Status: Active Member Role Status Dates AMEE Quinteros Primary Care Provider Active Team Status: Inactive Member Role Status Dates AMEE Quinteros Primary Care Provider Active Start: August 11, 2024 End: August 11, 2024 AMEE Quinteros Referring Provider Active St art: August 11, 2024 End: August 11, 2024 Dr. Radha Peters MD Attending Provider Active Start: August 11, 2024 End: August 11, 2024 Team Status: Inactive Member Role Status Dates AMEE Quinteros Primary Care Provider Active Start: August 11, 2024 End: August 11, 2024 Dr. Radha Peters MD Attending Provider Active Start: August 11, 2024 End: August 11, 2024 Dr. Radha Peters MD Referring Provider Active Start: August 11, 2024 End: August 11, 2024 Team Status: Inactive Member Role Status Dates Minerva Kolby Flower , METAL BUGGY OPERATOR-C Primary Care Provider Active Start: August 13, 2024 End: August 13, 2024 Minerva Flower , METAL BUGGY OPERATOR-C Referring Provider Active St art: August 13, 2024 End: August 13, 2024 Dr. Radha Peters MD Attending Provider Active Start: August 13, 2024 End: August 13, 2024 Team Status: Active Member Role Status Dates Minerva Kolby Flower , METAL BUGGY OPERATOR-C Primary Care Provider Active Start: August 15, 2024 Faith Wall RN Attending Provider Active St art: August 15, 2024 Team Status: Inactive Member Role Status Dates Minerva Kolby Flower , METAL BUGGY OPERATOR-C Primary Care Provider Active Start: August 22, 2024 End: August 22, 2024 Minerva Kolby Flower , METAL BUGGY OPERATOR-C Referring Provider Active St art: August 22, 2024 End: August 22, 2024 Elle Poe CNM Attending Provider Active S tart: August 22, 2024 End: August 22, 2024 Team Status: Inactive Member Role Status Dates Minerva Kolby Flower , METAL BUGGY OPERATOR-C Primary Care Provider Active Start: August 22, 2024 End: August 22, 2024 Dr. Radha Peters MD Attending Provider Active Start: August 22, 2024 End: August 22, 2024 Dr. Radha Peters MD Referring Provider Active Start: August 22, 2024 End: August 22, 2024 Team Status: Inactive Member Role Status Dates Minerva Flower , METAL BUGGY OPERATOR-C Primary Care Provider Active Start: September 15, 2024 End: September 15, 2024 Dr. Radha Peters MD Attending Provider Active Start: September 15, 2024 End: September 15, 2024 Dr. Radha Peters MD Referring Provider Active Start: September 15, 2024 End: September 15, 2024 Team Status: Inactive Member Role Status Dates Minerva Kolby Flower , METAL BUGGY OPERATOR-C Primary Care Provider Active Start: September 23, 2024 End: September 23, 2024 Minerva Flower , METAL BUGGY OPERATOR-C Referring Provider Active St art: September 23, 2024 End: September 23, 2024 Dr. Radha Peters MD Attending Provider Active Start: September 23, 2024 End: September 23, 2024 Team Status: Inactive Member Role Status Dates Minerva Flower METAL BUGGY OPERATOR-C Primary Care Provider Active Start: October 22, 2024 End: October 22, 2024 Minerva Flower METAL BUGGY OPERATOR-C Referring Provider Active St art: October 22, 2024 End: October 22, 2024 Chioma Springer METAL BUGGY OPERATOR, METAL BUGGY OPERATOR-C Attending Provider Active Start: October 22, 2024 End: October 22, 2024 Team Status: Inactive Member Role Status Dates Minerva Flower METAL BUGGY OPERATOR-C Primary Care Provider Active Start: October 22, 2024 End: October 22, 2024 Chioma Springer NP, METAL BUGGY OPERATOR-C Attending Provider Active Start: October 22, 2024 End: October 22, 2024 Chioma Springer NP, METAL BUGGY OPERATOR-C Referring Provider Active Start: October 22, 2024 End: October 22, 2024 Team Status: Inactive Member Role Status Dates Minerva Flower , METAL BUGGY OPERATOR-C Primary Care Provider Active Start: November 10, 2024 End: November 10, 2024 Dr. Radha Peters MD Attending Provider Active Start: November 10, 2024 End: November 10, 2024 Dr. Radha Peters MD Referring Provider Active Start: November 10, 2024 End: November 10, 2024 Team Status: Inactive Member Role Status Dates Minerva Flower METAL BUGGY OPERATOR-C Primary Care Provider Active Start: November 18, 2024 End: November 18, 2024 Minerva Flower , METAL BUGGY OPERATOR-C Referring Provider Active St art: November 18, 2024 End: November 18, 2024 Chioma Springer NP, METAL BUGGY OPERATOR-C Attending Provider Active Start: November 18, 2024 End: November 18, 2024 Team Status: Inactive Member Role Status Dates Minerva Flower , METAL BUGGY OPERATOR-C Primary Care Provider Active Start: December 18, 2024 End: December 18, 2024 Minerva Flower METAL BUGGY OPERATOR-C Referring Provider Active St art: December 18, 2024 End: December 18, 2024 Dr. María Elena Solomon DO Attending Provider Activ e Start: December 18, 2024 End: December 18, 2024 Team Status: Inactive Member Role Status Dates Minerva Flower , METAL BUGGY OPERATOR-C Primary Care Provider Active Start: January 06, 2025 End: January 06, 2025 Dr. María Elena Solomon DO Attending Provider Activ e Start: January 06, 2025 End: January 06, 2025 Dr. María Elena Solomon , DO Referring Provider Activ e Start: January 06, 2025 End: January 06, 2025 Team Status: Inactive Member Role Status Dates Minerva Flower METAL BUGGY OPERATOR-C Primary Care Provider Active Start: January 06, 2025 End: January 06, 2025 Minerva Flower METAL BUGGY OPERATOR-C Referring Provider Active St art: January 06, 2025 End: January 06, 2025 Elle Poe CNM Attending Provider Active S tart: January 06, 2025 End: January 06, 2025 Team Status: Active Member Role Status Dates Minerva Flower METAL BUGGY OPERATOR-C Primary Care Provider Active Start: January 08, 2025 Dr. María Elena Solomon , DO Attending Provider Activ e Start: January 08, 2025 Dr. María Elena Solomon , DO Referring Provider Activ e Start: January 08, 2025 Team Status: Inactive Member Role Status Dates Minerva Flower METAL BUGGY OPERATOR-C Primary Care Provider Active Start: January 08, 2025 End: January 08, 2025 Dr. María Elena Solomon , DO Attending Provider Activ e Start: January 08, 2025 End: January 08, 2025 Dr. María Elena Solomon , DO Referring Provider Activ e Start: January 08, 2025 End: January 08, 2025 Team Status: Inactive Member Role Status Dates Minerva Flower METAL BUGGY OPERATOR-C Primary Care Provider Active Start: January 20, 2025 End: January 20, 2025 Minerva Flower METAL BUGGY OPERATOR-C Referring Provider Active St art: January 20, 2025 End: January 20, 2025 Amber Dyer CNM Attending Provider Active Start: January 20, 2025 End: January 20, 2025 Team Status: Inactive Member Role Status Dates Minerva Flower METAL BUGGY OPERATOR-C Primary Care Provider Active Start: February 03, 2025 End: February 03, 2025 Minerva Flower METAL BUGGY OPERATOR-C Referring Provider Active St art: February 03, 2025 End: February 03, 2025 Chioma Springer NP, METAL BUGGY OPERATOR-C Attending Provider Active Start: February 03, 2025 End: February 03, 2025 Team Status: Active Member Role Status Dates Minerva D Flower , METAL BUGGY OPERATOR-C Primary Care Provider Active Start: February 03, 2025 Chioma Springer METAL BUGGY OPERATOR, METAL BUGGY OPERATOR-C Attending Provider Active Start: February 03, 2025 Team Status: Inactive Member Role Status Dates Minerva Kolby Flower , METAL BUGGY OPERATOR-C Primary Care Provider Active Start: February 03, 2025 End: February 03, 2025 Chioma Springer METAL BUGGY OPERATOR, METAL BUGGY OPERATOR-C Attending Provider Active Start: February 03, 2025 End: February 03, 2025 Team Status: Inactive Member Role Status Dates Minerva Flower , METAL BUGGY OPERATOR-C Primary Care Provider Active Start: February 18, 2025 End: February 18, 2025 Minerva Flower METAL BUGGY OPERATOR-C Referring Provider Active St art: February 18, 2025 End: February 18, 2025 Dr. María Elena Solomon , Attending Provider Activ e Start: February 18, 2025 End: February 18, 2025 Team Status: Active Member Role Status Dates Minerva Flower , METAL BUGGY OPERATOR-C Primary Care Provider Active Start: February 18, 2025 Dr. María Elena Solomon , Attending Provider Activ e Start: February 18, 2025 Team Status: Inactive Member Role Status Dates Minerva Flower METAL BUGGY OPERATOR-C Primary Care Provider Active Start: February 19, 2025 End: February 19, 2025 Dr. María Elena Solomon DO Attending Provider Activ e Start: February 19, 2025 End: February 19, 2025 Dr. María Elena Solomon DO Referring Provider Activ e Start: February 19, 2025 End: February 19, 2025 Team Status: Active Member Role Status Dates Minerva Flower , METAL BUGGY OPERATOR-C Primary Care Provider Active Start: February 19, 2025 Dr. María Elena Solomon DO Referring Provider Activ e Start: February 19, 2025 Dr. María Elena Solomon , Other Provider Active Start: February 19, 2025 Elle Poe CNM Attending Provider Active S tart: February 19, 2025 Team Status: Inactive Member Role Status Dates Minerva Flower , METAL BUGGY OPERATOR-C Primary Care Provider Active Start: February 20, 2025 End: February 20, 2025 Amber Dyer CNM Attending Provider Active Start: February 20, 2025 End: February 20, 2025 Amber Dyer CNM Referring Provider Active Start: February 20, 2025 End: February 20, 2025 Team Status: Inactive Member Role Status Dates AMEE Quinteros Primary Care Provider Active Start: February 18, 2025 End: February 18, 2025 Dr. María Elena Solomon DO Attending Provider Activ e Start: February 18, 2025 End: February 18, 2025 Team Status: Active Member Role Status Dates AMEE Quinteros Primary Care Provider Active Start: February 21, 2025 Amber Dyer CNM Attending Provider Active Start: February 21, 2025 Amber Dyer CNM Referring Provider Active Start: February 21, 2025 Amber Dyer CNM Other Provider Active Star t: February 21, 2025 Team Status: Inactive Member Role Status Dates AMEE Quinteros Primary Care Provider Active Start: February 26, 2025 End: February 26, 2025 Dr. María Elena Solomon DO Attending Provider Activ e Start: February 26, 2025 End: February 26, 2025 Dr. María Elena Solomon DO Referring Provider Activ e Start: February 26, 2025 End: February 26, 2025 Goals (unrecognized section and content) Goals [...] BE BASED ON THE PRIMARY CLINICAL RECORDS. [employer] provides no warranty or guarantee of the accuracy or completeness of information in this document.
--- NOTE | 2025-02-26 20:47 | OB.TRI.HP_ITS ---
HPI - General HPI Narrative MADDIE GABRIEL, is a 24 y/o @ 34 weeks 3 days who presents to L&D with the complaint of tightening feeling in her abdomen when sitting down and improvement with standing up and walking around. She states that her discomfort is a 4/10 at times and this last hour she felt the tightening happen 11 times. She denies loss of fluid, vaginal bleeding, or dec fm. The nurse was given instruction to check her cervix. Monitor is not showing more than irritability Maternal Data Information ITZEL Calculator Estimated Delivery Date Method Current WG Current Estimate 04/06/25 Ultrasound #1 34w 3d Other Estimates 03/30/25 LMP (Certain) 35w 3d PFSH PFSH Medical History Spontaneous Home Medications ?Medication ?Instructions ?Recorded ?Last Taken ?Type ferrous sulfate 137 mg (45 mg 137 mg PO QDAY 02/03/25 02/25/25 21:00 History iron) tablet,extended release 137 mg (Slow Fe) famotidine 20 mg tablet (Pepcid AC) 20 mg PO BID 02/1802/24/25 21:00 History 20 mg PNV 153-FA 400 mcg-om3 35 mg-dha 1 tab PO DAILY pregna ncy 02/19/25 02/26/25 07:00 History 25 mg-epa 5 mg-fish oil chew 1 TAB tablet ( Gummies) Allergy/AdvReac Type Severity Reaction Status Date / Time No Known Allergies Allergy Verified 02/26/25 16:38 Family History Grandmother Cancer Lung-Maternal Aunt Cancer Pancreatic- Maternal Social History adopted: No household members: spouse current occupational status: employed 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 current occupational exposures/hazards: No pets and animals: Yes ( taking care of litterbox) pets and animals: cat(s) and fish history of recent travel: No sexually active: Yes Smoking Status: Never smoker alcohol intake: current alcohol intake frequency: holidays/special occasions only details: None while substance use type: former substance user Date of last use: Age 16 experimented and marijuana diet: other well-balanced diet: daily or most days caffeine: No eating out: 1-3 times/week during the past year weight has: remained stable what type of physical activity do you participate in: none seatbelt use: always do you feel safe at home: Yes additional social history: : 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 Date Name GA/Weeks Outcome Route Bth Weight Gen Labor Lgth Anesthesia Del Locatn Provider FOB 01/09/24 5 spontaneous Visit Details Expected Delivery Route/Plan Labor Preferences- CB/BF classes: encouraged labor support person: Otoniel labor intervention preferences: [] pain management options preferred: limited! cut cord/dad catch: yes : yes PP control planned: discussed discussed possible routes of delivery and associated risks: [] special requests: [] Plans Covid status: [] Flu vaccine: [] Tdap vaccine: declined Rhogam: na LARC form signed: yes Problem list reviewed and updated with the most current plan of care details and appropriate orders placed. Relevant counseling for the gestational age provided. Continue routine care and follow up unless otherwise noted in visit notes/problem list details OB Flowsheet Initial Weight: 166 lb Date -?-?-?-?-?-?-?-?-?-?-?-?- EGA Weight BP Urine Prot -?-?-?-?-?-?-?-?-?-?-?-?- Glucose FHR FuHt Pres Dilation -?-?-?-?-?-?-?-?-?-?-?-?- Effaced St Visit Note 08/22/24 -?-?-?-?-?-?-?-?-?-?-?-?- 7w 4d 120 lb (-46 lb) 120/86 -?-?-?-?-?-?-?-?-?-?-?-?- 153 -?-?-?-?-?-?-?-?-?-?-?-?- KW- CRL cons wit h dates. declines NIPT. has US appt after today. declined pap today. 09/23/24 -?-?-?-?-?-?-?-?-?-?-?-?- 12w 1d 167 lb (+16 oz) 119/81 Negative -?-?-?-?-?-?-?-?-?-?-?-?- Negative 150 -?-?-?-?-?-?-?-?-?-?-?-?- SM- no vb crampi ng 10/22/24 -?-?-?-?-?-?-?-?-?-?-?-?- 16w 2d 172 lb 4 oz (+6 lb 4 oz) 118/74 Negative -?-?-?-?-?-?-?-?-?-?-?-?- Negative 145 -?-?-?-?-?-?-?-?-?-?-?-?- MH-No VB. No FM yet. Anatomy US 11/10. Urine GCC today 11/18/24 -?-?-?-?-?-?-?-?-?-?-?-?- 20w 1d 177 lb 2 oz (+11 lb 2 oz) 114/72 Negative -?-?-?-?-?-?-?-?-?-?-?-?- Negative 147 -?-?-?-?-?-?-?-?-?-?-?-?- MH-No VB. Nausea improved. Good FM. 12/18/24 -?-?-?-?-?-?-?-?-?-?-?-?- 24w 3d 181 lb 6 oz (+15 lb 6 oz) 112/77 Negative -?-?-?-?-?-?-?-?-?-?-?-?- Negative 145 -?-?-?-?-?-?-?-?-?-?--?-?- JV- no lof, vagi nal bleeding, or dec fm. no complaints. needs f/u [employer]. ultrasound ordered. 01/06/25 -?-?-?-?-?-?-?-?-?-?-?-?- 27w 1d 188 lb 6 oz (+22 lb 6 oz) 131/86 Negative -?-?-?-?-?-?-?-?-?-?-?-?- Negative 150 28 -?-?-?-?-?-?-?-?-?-?-?-?- kw- no vb/lof/ct x. good fm. glucose today. tdap and larc declined 01/20/25 -?-?-?-?-?-?-?-?-?-?-?-?- 29w 1d 190 lb (+24 lb) 115/75 Negative -?-?-?-?-?-?-?-?-?-?-?-?- Negative 134 30 -?-?-?-?-?-?-?-?-?-?-?-?- LC- no vb/ctx/lo f. good fm. neg glucola. LC- no vb/ctx/lof. good fm. neg glucola. chart reviewed. MFM growth normal, due date should be 04/06/2025 based on 1st trimester us. cw SM agrees with due date change. pt informed of new due date of 04/06/2025 02/03/25 -?-?-?-?-?-?-?-?-?-?-?-?- 31w 1d 193 lb 6 oz (+27 lb 6 oz) 108/80 Negative -?-?-?-?-?-?-?-?-?-?-?-?- Negative 142 32 -?-?-?-?-?-?-?-?-?-?-?-?- MH-No Vb, LOF. G ood FM. rpt CBC today. 02/18/25 -?-?-?-?-?-?-?-?-?-?-?-?- 33w 2d 196 lb (+30 lb) 113/76 Negative -?-?-?-?-?-?-?-?-?-?-?-?- Negative 143 32 0 -?-?-?-?-?-?-?-?-?-?-?-?- JV- pt complains of cramping that is getting worse over the last couple of days. on exam there is some thick white discahrge, no odor, no fluid, or bleeding. cx closed. red top collected. collecting UA and culture. ROS Constitutional Constitutional: Reports systems reviewed and no addt'l complaints, except as documented Gastrointestinal Gastrointestinal: Denies bloating, constipation, cramping, diarrhea, nausea or vomiting Genitourinary Genitourinary: Reports other Details: Denies vaginal odor, vaginal bleeding, or vaginal discharge ; Denies difficulty urinating or flank pain NST FHR Rate Baby A Baseline: 140 Variability:: Moderate Accelerations:: 15 x 15 Decelerations:: None NST Reactive:: Yes FHR Category:: Category I Assessment & Plan (1) Threatened labor: (2) Breech presentation: (3) Anemia in preg-unspec: QUALIFIERS: Trimester: third trimester Qualified Code(s): O99.013 - Anemia complicating , third trimester (4) affected by growth restriction: COMMENT: growth US 7%- [facility] referral for fu growth scan. due date changed 04/06/25 on 01/20. (5) Chlamydia infection during : COMMENT: 08/26/24 azithromycin sent; 10/22/24 rpt culture:negative repeat culture at 36 weeks with the GBS (6) Family history of hemochromatosis: COMMENT: Pt tested and is NEGATIVE (7) Obesity affecting : QUALIFIERS: Trimester: second trimester Obesity type affecting : unspecified obesity Qualified Code(s): O99.212 - Obesity complicating , second trimester COMMENT: BMI 30.4, HgBA1C normal (8) Vegetarian diet: COMMENT: x8 years - recently started eating some meat since (9) H/O miscarriage, currently : COMMENT: January 2024 (10) Supervision of high-risk : QUALIFIERS: Trimester: third trimester Qualified Code(s): O09.93 - Supervision of high risk , unspecified, third trimester COMMENT: PRR , ITZEL 04/06/25, : Otoniel (11) : QUALIFIERS: Weeks of gestation: 33 weeks Qualified Code(s): Z3A.33 - 33 weeks gestation of COMMENT: NIPT low risk, Choroid plexus cysts. PLAN: Plan threatened labor without dilation or contractions, based on symptoms recommend increase hydration and rest via laying on left side. If pain is worse with prolonged sitting, recommend light activity to aleviate the discomfort. Return if pain is worsened or closer together or for vaginal bleeding, leaking fluid, or decreased movement. Charges/Coding Multi Select Codes Visit Charges Office Visit/Consults: 40095 OV L3 Est 20min Urinary/Genital Urinary/Genital CPT Codes: 59452-59 non-stress test Interp
== END 2025-02-26 17:13 | disposition home or self-care (01) ==
LOC: WPOUT 16:13 → WP 16:13
PROVIDERS: PCP Nurse Practitioner Family; Referring Provider Obstetrics & Gynecology; Visit Provider Obstetrics & Gynecology
DX: O47.03 False labor before 37 completed weeks of gestation, third trimester (principal); O32.1XX0 Maternal care for breech presentation, not applicable or unspecified; O99.013 Anemia complicating pregnancy, third trimester; O99.213 Obesity complicating pregnancy, third trimester; Z3A.34 34 weeks gestation of pregnancy; Z79.899 Other long term (current) drug therapy
CPT/HCPCS: 59025; 59050; 99221; G0378

== ENCOUNTER → 2025-03-11 | Outpatient (CLI) | payer OTHER, SELFPAY | END | disposition home or self-care (01) | LOC: LABSPEC 16:28 | PROVIDERS: PCP Nurse Practitioner Family; Visit Provider Obstetrics & Gynecology | DX: O09.93 Supervision of high risk pregnancy, unspecified, third trimester (principal); Z3A.00 Weeks of gestation of pregnancy not specified | CPT/HCPCS: 87081 ==

== ENCOUNTER → 2025-03-19 | Outpatient (CLI) | payer OTHER, SELFPAY ==
[2025-03-23 21:07] LABS: Chlamydia By Nucleic Acid AMP Negative (Negative); Gonococcus By Nucleic Acid AMP Negative (Negative)
== END | disposition home or self-care (01) ==
LOC: LABSPEC 15:46
PROVIDERS: PCP Nurse Practitioner Family; Referring Provider Obstetrics & Gynecology; Visit Provider Obstetrics & Gynecology
DX: O98.819 Other maternal infectious and parasitic diseases complicating pregnancy, unspecified trimester (principal); A74.9 Chlamydial infection, unspecified; Z3A.00 Weeks of gestation of pregnancy not specified
CPT/HCPCS: 87491; 87591

== ENCOUNTER 2025-03-30 05:10 | Inpatient (IN) | payer OTHER, SELFPAY ==
[2025-03-30] VITALS (19 sets, daily range): BP systolic 88–117; BP diastolic 62–75; PULSE 62–108; RESP 13–18; TEMP 35.6–36.7; O2SAT 95–100; BMI 37.5
--- OUTSIDE RECORDS SUMMARY | 2025-03-30 05:25 | XMS RPT_ITS | CCD ---
Author Organization [facility] [place] [facility] Team Providers [employer] Recruiter Name Role Phone Free, Text Entry Unavailable Unavailable [place]oom[place], Verona I Unavailable Unavailable Flower ENLISTED ADVISOR-STUDIO OPERATOR, Minerva D Primary Care Provider [phone] FLOWER, MINERVA D Primary Care Unavailable FLOWER, MINERVA D Primary Care Unavailable FLOWER, MINERVA D Primary Care Unavailable FLOWER, MINERVA D Attending Unavailable FLOWER, MINERVA D Primary Care Unavailable FLOWER, MINERVA D Attending Unavailable FLOWER, MINERVA D Primary Care Unavailable FLOWER, MINERVA D Attending Unavailable FLOWER, MINERVA D Primary Care Unavailable FLOWER, MINERVA D Primary Care Unavailable BILL ANDRES Referring Unavailable Flower TRUCK RENTAL MANAGER-C, Minerva D Primary Care Provider Flower TRUCK RENTAL MANAGER-C, Minerva D Referring Provider Dr. Radha Peters MD Attending Provider Dr. Radha Peters MD Referring Provider Faith Wall RN Attending Provider UnavailElle Hernandez CNM Attending Provider Wardell TRUCK RENTAL MANAGER-C, Chioma Attending Provider Wardell TRUCK RENTAL MANAGER-C, Chioma Referring Provider Flower TRUCK RENTAL MANAGER-C, Minerva D Primary Care Provider Flower TRUCK RENTAL MANAGER-C, Minerva D Referring Provider Dr. Radha Peters MD Attending Provider Dr. Radha Peters MD Referring Provider [phone] Dr. María Elena Solomon DO Attending Provider Dr. María Elena Solomon DO Referring Provider Elle Poe CNM Attending Provider NO PRIMARY CARE, Primary Care Unavailable MARÍA ELENA CROFT Referring Unavailab MARÍA ELENA Frost Attending Unavailab alfredo Dyer CNM, Amber Attending Provider Flower TRUCK RENTAL MANAGER-C, Minerva D Primary Care Provider Flower TRUCK RENTAL MANAGER-C, Minerva D Referring Provider Fran GARCIA, Dr. Garcia Attending Provider Flower TRUCK RENTAL MANAGER-C, Minerva D Primary Care Provider Flower TRUCK RENTAL MANAGER-C, Minerva D Referring Provider Gian TRUCK RENTAL MANAGER-C, Chioma Attending Provider Dr. María Elena Solomon DO Other Provider Gomez CNM, Amber Referring Provider Gomez CNM, Amber Other Provider Flower TRUCK RENTAL MANAGER-C, Minerva D Primary Care Provider Fran GARCIA, Dr. Garcia Attending Provider [phone] Flower TRUCK RENTAL MANAGER-C, Minerva D Primary Care Provider Flower TRUCK RENTAL MANAGER-C, Minerva D Referring Provider Gian TRUCK RENTAL MANAGER-C, Chioma Attending Provider Flower, Minerva D Primary Care Unavailable Faith Wall Attending Unavailable Flower, Minerva D Primary Care Unavailable Flower, Minerva D Referring Unavailable Wardell TRUCK RENTAL MANAGERChioma Attending Unavailable Flower, Minerva D Primary Care Unavailable Flower, Minerva D Referring Unavailable Gian TRUCK RENTAL MANAGERChioma Attending Unavailable Flower, Minerva D Primary Care Unavailable Amber Dyer Attending Unavailable Amber Dyer Referring Unavailable Flower, Minerva D Primary Care Unavailable Flower, Minerva D Referring Unavailable María Elena Solomon Attending Unavailabl e Flower, Minerva D Primary Care Unavailable Flower, Minerva D Referring Unavailable Radha Peters Attending Unavailable Flower, Minerva D Primary Care Unavailable Flower, Minerva D Referring Unavailable María Elena Solomon Attending Unavailabl e Flower, Minerva D Primary Care Unavailable Vande Velde, María Elena Attending Unavailabl e Vande VeldeMaría Elena Referring Unavailabl e Flower, Minerva D Primary Care Unavailable Flower, Minerva D Referring Unavailable Radha Peters Attending Unavailable Flower, Minerva D Primary Care Unavailable MarcanthonyRadha Admitting Unavailable MarcanthonyRadha Attending Unavailable Flower, Minerva D Primary Care Unavailable Vande Naveen, María Elena Attending Unavailabl e Vande Velde, María Elena Referring Unavailabl e Flower, Minerva D Primary Care Unavailable MarcanthonyRadha Attending Unavailable MarcanthonyRadha Referring Unavailable Flower, Minerva D Primary Care Unavailable MarcanthonyRadha Referring Unavailable MarcanthonyRadha Attending Unavailable Flower, Minerva D Primary Care Unavailable Flower, Minerva D Referring Unavailable MarcanthonyRadha Attending Unavailable Flower, Minerva D Primary Care Unavailable Flower, Minerva D Referring Unavailable Vande VelMaría Elena schneider Attending Unavailabl e Flower, Minerva D Primary Care Unavailable Flower, Minerva D Referring Unavailable MarcanthonyRadha Attending Unavailable Flower, Minerva D Referring Unavailable Flower, Minerva D Primary Care Unavailable Amber Dyer Attending Unavailable Flower, Minerva D Primary Care Unavailable Flower, Minerva D Referring Unavailable Elle Poe Attending Unavailable Flower, Minerva D Primary Care Unavailable Gian TRUCK RENTAL MANAGERChioma Attending Unavailable Gian TRUCK RENTAL MANAGERChioma Referring Unavailable BarakanthonyRadha Attending Unavailable Flower, Minerva D Primary Care Unavailable MarcanthonyRadha Referring Unavailable Flower, Minerva D Primary Care Unavailable Flower, Minerva D Referring Unavailable Gian TRUCK RENTAL MANAGERChioma Attending Unavailable Flower, Minerva D Primary Care Unavailable Radha Peters Referring Unavailable Radha Peters Attending Unavailable Flower, Minerva D Primary Care Unavailable MarcanthonyRadha Attending Unavailable Flower, Minerva D Primary Care Unavailable María Elena Solomon Attending Unavailabl e Vande VeldeMaría Elena Referring Unavailabl e Flower, Minerva D Primary Care Unavailable Gian TRUCK RENTAL MANAGER, Chioma Attending Unavailable Flower, Minerva D Primary Care Unavailable Vande Veljennie, María Elena Referring Unavailabl e Vande Velde, María Elena Attending Unavailabl e Flower, Minerva D Primary Care Unavailable María Elena Solomon Referring Unavailabl e Vande Velde, María Elena Attending Unavailabl e Flower, Minerva D Primary Care Unavailable Vande Velde, María Elena Attending Unavailabl e Torres, Minerva D Primary Care Unavailable Flower, Minerva D Referring Unavailable Elle Poe Attending Unavailable Flower, Minerva Jarrett Primary Care Unavailable Flower, Minerva D Referring Unavailable Radha Peters Attending Unavailable Flower, Minerva D Referring Unavailable Flower, Minerva D Primary Care Unavailable Amber Dyer Attending Unavailable Torres, Minerva D Primary Care Unavailable Elle Poe Attending Unavailable María Elena Solomon Consulting UnavailMaría Elena Fraser Referring Unavailabl e Torres Minerva Kolby Primary Care Unavailable Amber Dyer Referring Unavailable Amber Dyer Attending Unavailable Amber Dyer Consulting Unavailable María Elena Solomon Attending UnavailiMnerva Garcia Primary Care Unavailable María Elena Solomon Consulting María Elena Haque Referring Unavailabl e Allergies Allergy Classification Reported Allergen(s) Allergy Type Date of Onset Reaction(s) Facility (5 sources) strawberry allergenic extract; Translations: [STRAWBERRY] Drug Allergy 05-30-2023 Unknown [facility] Medications Current Medications Medication Drug Class(es) Dates [...] 07/29/2025 Active famotidine 20 mg oral tablet (11 sources) Histamine-2 Receptor Antagonist Start: 02-18-2025 take 1 tablet by mouth twice daily before mealtime Famotidine (Pepcid Ac) 20 mg tablet Active 20 mg PO TWICE A DAY February 18, 2025 12:00am 24 hr ferrous sulfate 142 mg extended release oral tablet (17 sources) Start: 02-03-2025 take 1 tablet by [...] Needed Quantity: 0 Refills: 0 Ordered: 30-Nov-2021 Rogers, Gertrude Generic Substitution Allowed Multivitamin preparation (1 source) take 1 tablet by mouth once daily Multiple Vitamins oral tablet, chewable ; 1 tab(s) orally once a day Quantity: 0 Refills: 0 Ordered: 30-Nov-2021 Rogers, Gertrude Generic Substitution Allowed Pnv No.102-Gj-Ob6-Dha-Ep a-Fish ( Gummies) 400 mcg-35 mg- 25 mg-5 mg tablet,chewable (10 sources) Start: 02-20-20 Pnv No.324-Jl-Pr9-Dha-E pa-Fish ( Gummies) 400 mcg-35 mg- 25 mg-5 mg tablet,chewable Active 1 {tbl} PO DAILY February 19, 2025 12:00am Start: 02-19-2025 Pnv No.153-Fa- Da9-Flc-Wdx-Fish ( Gummies) 400 mcg-35 mg- 25 mg-5 mg tablet,chewable Active 1 {tbl} PO DAILY February 19, 2025 12:00am PNV no.95/ferrous fum/folic ac ( MULTIVITAMINS ORAL) (2 sources) take 1 capsule by mouth once daily before mealtime PNV no.95/ferrous fum/folic ac ( MULTIVITAMINS ORAL) Take 1 capsule by mouth once daily. Active vitamin b12 1 mg/ml injectable solution (1 source) Vitamin B12 Start: 07-29-2024 cyanocobalamin (Vitamin B-12) injection 1,000 mcg Start: 07-29-2024 cyanocobalamin (Vitamin B-12) injection 1,000 mcg Completed/Discontinued Medications Medication Drug Class(es) Dates Sig (Normalized) Sig (Original) azithromycin 500 mg oral tablet (17 sources) Macrolide Antimicrobial Start: 08-26-2024 End: 10-22-2024 take 1 tablet by mouth once Azithromycin (Zithromax) 500 mg tablet Discontinued 1000 mg PO ONCE 2 0 August 26, 2024 1:00am October 22, 2024 3:29pm administer on day 1 of therapy docosahexaenoic acid 200 mg oral capsule (17 sources) Start: 08-15-2024 End: 02-20-2025 take 1 capsule by mouth once daily Docosahexaenoic Acid ( Dha) 200 mg capsule Discontinued 200 mg PO DAILY August 15, 2024 1:00am February 20, 2025 9:11am On Hold: Order Changed ergocalciferol 1.25 mg oral capsule (20 sources) Provitamin D2 Compound Start: 01-27-2024 End: 02-20-2025 Ergocalciferol (Vitamin D2) (Drisdol) 1,250 mcg (50,000 unit) capsule Discontinued 1250 ug PO EVERY WEEK January 27, 2024 12:00am February 20, 2025 9:09am Start: 05-30-2023 End: 07-29-2024 take 1 capsule by mouth every week ergocalciferol (Vitamin D-2) 1.25 MG (70650 UT) capsule Indications: Vitamin D deficiency Take 1 capsule (50,000 Units) by mouth 1 (one) time per week. 13 capsule 3 10/30/2023 07/29/2024 Discontinued (Therapy completed) Mecobalamin (Vitamin B12) 10,000 mcg recon soln (17 sources) Start: 08-15-2024 End: 02-20-2025 Mecobalamin (Vitamin B12) 10 ,000 mcg recon soln Discontinued ug IM MONTHLY August 15, 2024 1:00am February 20, 2025 9:10am Start: 08-15-2024 Mecobalamin (V itamin B12) 10,000 mcg recon soln Active ug IM MONTHLY August 15, 2024 1:00am ondansetron 4 mg disintegrating oral tablet (17 sources) Serotonin-3 Receptor Antagonist Start: 08-09-2024 End: 02-20-2025 take 1 tablet by mouth every six hours as needed for nausea and vomiting Ondansetron 4 mg tablet,disintegrating Discontinued 4 mg PO EVERY 6 HOURS as needed for nausea and vomiting 06 02August 09, 2024 1:00am February 20, 2025 9:10am Pnv Cmb#95-Ferrous Fumarate-Fa () 28 mg iron- 800 mcg tablet (17 sources) Start: 01-27-2024 End: 02-13-2024 Pnv Cmb#95-Ferrous [...] infection, unspecified; Translations: [Chlamydial infection, unspecified] Onset: 02-19-2025 Episodic Deficiency and other anemia (1 source) Anemia, unspecified; Translations: [Anemia, unspecified] Onset: 02-06-2025 Episodic Diseases of white blood cells (5 sources) Leukocytosis; Translations: [Elevated white blood cell count, unspecified] Onset: 07-29-2024 07-29-2024 Chronic Early or threatened labor (20 sources) False labor before 37 completed weeks of gestation; Translations: [False labor before 37 completed weeks of gestation, unspecified trimester] Onset: 02-25-2025 02-26-2025 Episodic Hemorrhage during ; abruptio placenta; placenta [...] dose of emmie tone adminstered. Malposition; malpresentation (20 sources) Breech presentation; Translations: [Maternal care for breech presentation, not applicable or unspecified] Onset: 03-24-2025 02-23-2025 Episodic Comment on above: desires primary c/s. discussed and declines ECV, C/S 03/30 @ 0715. Menstrual disorders (5 sources) Amenorrhea; Translations: [Amenorrhea, [...] Translations: [Anemia complicating , third trimester] Onset: 02-19-2025 Chronic Other complications of (2 sources) Obesity complicating , second trimester; Translations: [Obesity complicating , second trimester] Onset: 02-19-2025 Chronic Other complications of (1 source) Obesity complicating , unspecified trimester; Translations: [Obesity complicating , unspecified trimester] Onset: 09-25-2024 Chronic Other complications of (17 sources) Left lower quadrant pain; Translations: [Other [...] Otoniel PRR , ITZEL 5, : Otoniel PRR , ITZEL 5, indie boy : Otoniel Other complications of (20 sources) Chlamydial infection; Translations: [Other maternal infectious and parasitic diseases complicating , unspecified trimester] 10-23-2024 Episodic Comment on above: 08/26/24 azithromyci n sent; 10/22/24 rpt culture:negative 08/26/24 azithromyci n sent; 10/22/24 rpt culture:negativerepeat culture at 36 weeks with the GBS Other complications of (20 sources) Disorder of ; Translations: [Maternal care for other known or suspected poor growth, unspecified trimester, not applicable or unspecified] 01-12-2025 Episodic Comment on above: growth US 7%- MFM re ferral for fu growth scan growth US 7%- MFM re ferral for fu growth scan. due date changed 04/06/25 on 01/20. Other complications of (2 sources) Other maternal infectious and parasitic diseases complicating , unspecified trimester; Translations: [Other maternal infectious and parasitic diseases complicating , unspecified trimester] Onset: 03-24-2025 Episodic Other complications of (2 sources) Supervision of high risk , unspecified, third trimester; Translations: [Supervision of high risk , unspecified, third trimester] Onset: 03-17-2025 Episodic Other complications of (2 sources) Maternal care for other known or suspected poor growth, unspecified trimester, not applicable or unspecified; Translations: [Maternal care for other known or suspected poor growth, unspecified trimester, not applicable or unspecified] Onset: 02-19-2025 Episodic Other complications of (2 sources) Supervision of with other poor reproductive or obstetric history, unspecified trimester; Translations: [Supervision of with other poor reproductive or obstetric history, unspecified trimester] Onset: 02-19-2025 Episodic Other complications of (1 source) Supervision of high risk , unspecified, second trimester; Translations: [Supervision of high risk , unspecified, second trimester] Onset: 01-14-2025 Episodic Other female genital disorders (17 sources) Vaginal bleeding; Translations: [Abnormal uterine and vaginal bleeding, unspecified] 02-04-2024 Chronic Residual codes; unclassified (20 sources) Family history [...] other endocrine, nutritional and metabolic diseases] Onset: 02-19-2025 Episodic Residual codes; unclassified (2 sources) Other specified health status; Translations: [Other specified health status] Onset: 02-19-2025 Episodic Residual codes; unclassified (2 sources) 33 weeks gestation of ; Translations: [33 weeks gestation of ] Onset: 02-19-2025 Episodic Residual codes; unclassified (1 source) 31 weeks gestation of ; Translations: [31 weeks gestation of ] Onset: 02-03-2025 Episodic Residual codes; unclassified (1 source) 28 weeks gestation of ; Translations: [28 weeks gestation of ] Onset: 01-06-2025 Episodic Spontaneous (17 sources) Miscarriage; Translations: [Complete or unspecified spontaneous without complication] 08-15-2024 Episodic Unclassified (1 source) Periumbilical abdominal pain 11-30-2021 Unclassified (1 source) Other specified diseases and conditions complicating ; Translations: [Other specified diseases and conditions complicating ] Onset: 03-24-2025 Unclassified (1 source) Maternal care for (suspected) [...] unspecified, unspecified trimester] Onset: 11-21-2024 Episodic Other and delivery including normal (20 sources) Encounter for supervision of normal , unspecified, unspecified trimester; Translations: [] Onset: 07-29-2024 Episodic Comment on above: NIPT low risk, Choro id plexus cysts. Neg GBS. NIPT low ri sk, Choroid plexus cysts. Other upper respiratory infections (4 sources) Pharyngitis; [...] Test Name Value Interpretation Reference Range Facility Conduit Mechanic Office Visit Reporton 03-25-2025 Conduit Mechanic Office Visit Report [facility] [address], [address] [place] [address] OFFICE VISIT Date of Service: 03/25/25 MR#: [id number] Acct: [id number] Name: MADDIE TORRE Rep #: [id number] : 2000 Provider: Dr. Radha stanford MD Age/Sex: 24/F Location[place] [facility] [place] [facility] [place] Status: Signed Intake Vital Signs 02/03/25 13:42 03/19/25 14:19 03/25/25 15:44 Height 5 ft 2 in 5 ft 2 in 5 ft 2 in Weight: 201 lb 203 lb BMI 36.7 37.1 BP 117/79 114/79 Intake Visit Reasons: 38wk ob Chief Complaint: 38 Week OB Helper Steel Fabrication Required: No Is patient in pain?: No Allergies No Known Allergies Allergy (Verified 03/25/25 15:45) Medications ???Medication ???Instructions ???Recorded ???Confirmed ???Type ferrous sulfate 137 mg (45 mg 137 mg PO QDAY 02/03/25 03/25/25 H istory iron) tablet,extended release (Slow Fe) famotidine 20 mg tablet (Pepcid AC) 20 mg PO BID 02/18/25 03/25/25 History PNV 153-FA 400 mcg-om3 35 mg-dha 1 tab PO DAILY 02/19/25 03/25/25 History 25 mg-epa 5 mg-fish oil chew tablet ( Gummies) Last Menstrual Period: 06/23/24 Zika: Zika virus screening: Negative : No PFSH PFSH Medical History Spontaneous Family History Grandmother Cancer Lung-Maternal Aunt Cancer Pancreatic- Maternal Social History adopted: No household members: spouse current occupational 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 Date Name GA/Weeks Outcome Route Bth Weight Infant Gen Labor Lgth Anesthesia Del Locatn Provider FOB 01/09/24 5 spontaneous HPI 38wk ob Details: MADDIE TORRE is a 24 year old who presents for routine OB visit. OB Visit ITZEL Calculator Estimated Delivery Date Method Current WG Current Estimate 04/06/25 Ultrasound #1 38w 2d Other Estimates 03/30/25 LMP (Certain) 39w 2d Expected Delivery Route/Plan LTCS Labor Preferences- CB/BF classes: encouraged labor support [...] 118/74 Negative -???-???-???-???-???-?? ?-???-???-???-???-???-? ??- Negative 145 (more content not included)... Normal [facility] Chlamydia/GC SHAYLEE aptimaon CHLAMY,NUC ACID Negative Normal Negative [facility] Comment on above: Performed By: #### M [id number] #### [facility] [address] [place], [address] GC BY NUC ACID Negative Normal Negative [facility] Comment on above: Result Comment: [facility]f ormed at: [facility] [address] [place] [id number] [employer]ular: Ilsa Crystal MD, Phone: [phone] Performed By: #### Shaun [id number] #### [facility] [address] [place], [address] Chlamydia trachomatis rRNA d etection by probe and target amplification methodOrdered By: María Elena Hodge on 03-19-2025 C. trachomatis rRNA SHAYLEE+probe Ql (Unsp spec) Negative Negative [facility] - Chemistry and C hemistry - challengeOrdered By: María Elena Hodge on 03-19-2025 Glucose Ql (U) Negative [facility] - UrinalysisOrder ed By: María Elena Hodge on 03-19-2025 Protein Ql (U) Negative [facility] Neisseria gonorrhoeae nuclei c acid detection by amplified probe techniqueOrdered By: María Elena Hodge on 03-19-2025 N. gonorrhoeae DNA SHAYLEE+probe Ql (Unsp spec) Negative Negative [facility] Comment on above: Performed at: =[address] [id number] Director: Ilsa Crystal MD, Phone: [phone] Conduit Mechanic Office Visit Reporton 03-19-2025 Conduit Mechanic Office Visit Report [facility]'s [address], [address] [place] [address] OFFICE VISIT Date of Service: 03/19/25 MR#: [id number] Acct: [id number] Name: MADDIE TORRE Rep #: [id number] : 2000 Provider: Dr. María Elena Jama DO Age/Sex: 24/F Location[place] [facility] [place] [facility] [place] Status: Signed Intake Vital Signs 02/03/25 13:42 03/11/25 15:51 03/19/25 14:19 Height 5 ft 2 in 5 ft 2 in 5 ft 2 in Weight: 201 lb BMI 36.7 BP 117/79 Intake Visit Reasons: 37wk ob Helper Steel Fabrication Required: No Is patient in pain?: No Allergies No Known Allergies Allergy (Verified 03/19/25 14:26) Medications ???Medication ???Instructions ???Recorded ???Confirmed ???Type ferrous sulfate 137 mg (45 mg 137 mg PO QDAY 02/03/25 03/19/25 H istory iron) tablet,extended release (Slow Fe) famotidine 20 mg tablet (Pepcid AC) 20 mg PO BID 02/18/25 03/19/25 History PNV 153-FA 400 mcg-om3 35 mg-dha 1 tab PO DAILY 02/19/25 03/19/25 History 25 mg-epa 5 mg-fish oil chew tablet ( Gummies) Last Menstrual Period: 06/23/24 Zika: Zika virus screening: Negative : No PFSH PFSH Medical History Spontaneous Family History Grandmother Cancer Lung-Maternal Aunt Cancer Pancreatic- Maternal Social History adopted: No household members: spouse current occupational 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 Date Name GA/Weeks Outcome Route Bth Weight Gen Labor Lgth Anesthesia Del [facility] Provider FOB 01/09/24 5 spontaneous HPI 37wk ob Details: MADDIE TORRE is a 24 year old who presents for routine OB visit. OB Visit ITZEL Calculator Estimated Delivery Date Method Current WG Current Estimate 04/06/25 Ultrasound #1 37w 3d Other Estimates 03/30/25 LMP (Certain) 38w 3d Expected Delivery Route/Plan Labor Preferences- CB/BF [...] ??- Negative 145 -???-???-???-???-???-?? ?-???-???-???-???-???-? ??- MH-No VB (more content not included)... Normal [facility] Rule out Beta Strep (Grp. B) on 03-13-2025 EMERY Group B Beta Streptococcus is not isolated. Normal [facility] Comment on above: Performed By: #### M [phone] #### [facility] [place], [address] Conduit Mechanic Office Visit Reporton 03-11-2025 Conduit Mechanic Office Visit Report [facility] [address], [address] [place] [address] OFFICE VISIT Date of Service: 03/11/25 MR#: [id number] Acct: [id number] Name: MADDIE TORRE Rep #: [id number] : 2000 Provider: Dr. Radha stanford MD Age/Sex: 24/F Location: [facility] [place] Status: Signed Intake Vital Signs 02/03/25 13:42 02/26/25 16:25 03/06/25 15:46 03/11/25 15:46 03/11/25 15:51 Height 5 ft 2 in 5 ft 2 in 5 ft 2 in 5 ft 2 in 5 ft 2 in Weight: 198 lb 4 oz BMI 36.2 BP 123/85 H Intake Visit Reasons: 36wk ob Helper Steel Fabrication Required: No Is patient in pain?: No Allergies No Known Allergies Allergy (Verified 03/11/25 15:47) Medications ???Medication ???Instructions ???Recorded ???Confirmed ???Type ferrous sulfate 137 mg (45 mg 137 mg PO QDAY 02/03/25 03/11/25 H istory iron) tablet,extended release (Slow Fe) famotidine 20 mg tablet (Pepcid AC) 20 mg PO BID 02/18/25 03/11/25 History PNV 153-FA 400 mcg-om3 35 mg-dha 1 tab PO DAILY 02/19/25 03/11/25 History 25 mg-epa 5 mg-fish oil chew tablet ( Gummies) Last Menstrual Period: 06/23/24 Zika: Zika virus screening: Negative : No PFSH PFSH Medical History Spontaneous Family History Grandmother Cancer Lung-Maternal Aunt Cancer Pancreatic- Maternal Social History adopted: No household members: spouse current occupational 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 Date Name GA/Weeks Outcome Route Bth Weight Infant Gen Labor Lgth Anesthesia [place] Provider FOB 01/09/24 5 spontaneous HPI 36wk ob Details: MADDIE TORRE is a 24 year old who presents for routine OB visit. OB Visit ITZEL Calculator Estimated Delivery Date Method Current WG Current Estimate 04/06/25 Ultrasound #1 36w 2d Other Estimates 03/30/25 LMP (Certain) 37w 2d Expected Delivery Route/Plan Labor Preferences- CB/BF [...] 118/74 Negative -???-???-???-???-???-?? ?-???-???-???-???-???-? ??- Negative 145 - (more content not included)... Normal [facility] Screening beta-hemolytic Str eptococcus cultureOrdered By: Radha Peters on 03-11-2025 Beta-hemolytic Streptococcus culture Group B Beta Streptococcus is not isolated. [facility] Laboratory - Chemistry and C hemistry - challengeOrdered By: Amber Dyer on 03-06-2025 Glucose Ql (U) Negative [facility] Laboratory - UrinalysisOrder ed By: Amber Dyer on 03-06-2025 Protein Ql (U) Negative [facility] Con[employer] Office Visit Reporton 03-06-2025 Conduit Mechanic Office Visit Report [facility]'s [address], [address] [place] [address] OFFICE VISIT Date of Service: 03/06/25 MR#: [id number] Acct: [id number] Name: MADDIE TORRE Rep #: [id number] : 2000 Provider: AMAIRANI burnett Age/Sex: 24/F Location[place] [facility] [facility] [place] Status: Signed Intake Vital Signs 09/23/24 13:32 02/26/25 16:25 03/06/25 15:46 03/06/25 15:46 Height 5 ft 2 in 5 ft 2 in 5 ft 2 in 5 ft 2 in Weight: 200 lb 4 oz BMI 36.6 BP 122/81 H Intake Visit Reasons: 35wk ob Chief Complaint: 35wk ob [employer] Required: No Is patient in pain?: No Allergies No Known Allergies Allergy (Verified 03/06/25 15:44) Medications ???Medication ???Instructions ???Recorded ???Confirmed ???Type ferrous sulfate 137 mg (45 mg 137 mg PO QDAY 02/03/25 03/06/25 H istory iron) tablet,extended release (Slow Fe) famotidine 20 mg tablet (Pepcid AC) 20 mg PO BID 02/18/25 03/06/25 History PNV 153-FA 400 mcg-om3 35 mg-dha 1 tab PO DAILY 02/19/25 03/06/25 History 25 mg-epa 5 mg-fish oil chew tablet ( Gummies) Last Menstrual Period: 06/23/24 : No PFSH PFSH Medical History Spontaneous Family History Grandmother Cancer Lung-Maternal Aunt Cancer Pancreatic- Maternal Social History adopted: No household members: spouse current occupational 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 Date Name GA/Weeks Outcome Route Bth Weight Infant Gen Labor Lgth Anesthesia Del Locatn Provider FOB 01/09/24 5 spontaneous HPI 35wk ob Details: MADDIE TORRE is a 24 year old who presents for routine OB visit. OB Visit ITZEL Calculator Estimated Delivery Date Method Current WG Current Estimate 04/06/25 Ultrasound #1 35w 4d Other Estimates 03/30/25 LMP (Certain) 36w 4d Expected Delivery Route/Plan Labor Preferences- CB/BF classes: [...] ?-???-???-???-???-???-? ??- Negative 145 -???-???-???-???-???-?? ?-???-???-???-???-???-? ??- MH-N (more content not included)... Normal [facility] OB Triage Physician Noteon 0 02-26-2025 OB Triage Physician Note [facility] Medical Records Department [address] [place] [address] OB Triage Physician Note 02/26/252046 MR#: [id number] Acct: [id number] Name: MADDIE TORRE Rep #: [id number] : 2000 24 From: María Elena Solomon DO PCP: Minerva Flower TRUCK RENTAL MANAGERJudsonC Status:DEP [facility] Y [facility] H[facility] - General HPI Narrative MADDIE TORRE, is a 24 y/o @ 34 weeks 3 days who presents to D with the complaint of tightening feeling in her abdomen when sitting down and improvement with standing up and walking around. She states that her discomfort is a 4/10 at times and this last hour she felt the tightening happen 11 times. She denies loss of fluid, vaginal bleeding, or dec fm. The nurse was given instruction to check her cervix. Monitor is not showing more than irritability Maternal Data Information IZTEL Calculator Estimated Delivery Date Method Current WG Current Estimate 04/06/25 Ultrasound #1 34w 3d Other Estimates 03/30/25 LMP (Certain) 35w 3d PFSH PFSH Medical History Spontaneous Home Medications ???Medication ???Instructions ???Recorded ???Last Taken ???Type ferrous sulfate 137 mg (45 mg 137 mg PO QDAY 02/03/25 02/25/25 2 1:00 History iron) tablet,extended release 137 mg (Slow Fe) famotidine 20 mg tablet (Pepcid AC) 20 mg PO BID 02/18/25 02/24/25 21:00 History 20 mg PNV 153-FA 400 mcg-om3 35 mg-dha 1 tab PO DAILY 02/19/25 02/26/25 07:00 History 25 mg-epa 5 mg-fish oil chew 1 TAB tablet ( Gummies) Allergy/AdvReac Type Severity Reaction Status Date / Time No Known Allergies Allergy Verified 02/26/25 16:38 Family History Grandmother Cancer Lung-Maternal Aunt Cancer Pancreatic- Maternal Social History adopted: No household members: spouse 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 Date Name GA/Weeks Outcome Route Bth Weight Infant Gen Labor Lgth Anesthesia Del Locatn Provider FOB 01/09/24 5 spontaneous Visit Details [...] ??- 16w 2d 172 lb 4 oz (more content not included)... 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 Date Name GA/Weeks Outcome Route Bth Weight [facility] 01/09/24 5 spontaneous Visit Details [...] ?-???-???-???-???-???-? ??- Negative 145 -???-???-???-???-???-?? ?-???-???-???-???-???-? ??- -No VB. No FM yet. Anatomy US 11/10. Urine GCC today 11/18/24 -???-???-???-???-???-?? ?-???-???-???-???-???-? ??- 20w 1d 177 lb 2 oz (+11 lb 2 oz) 114/72 Negative -???-???-???-???-???-?? ?-???-???-???-???-???-? ??- Ne (more content not included)... Normal [facility] Genital Culture Comprehensiv vonda 02-20-2025 VAC Reason for Exam: contractions Normal vaginal zheng isolated. No yeast, Gardnerella, Neisseria or beta-hemolytic Streptococcus isolated. Normal [facility] Comment on above: Performed By: #### M 100.2200, L7000.1800 #### [facility] [address] [place], [place], [address] Urine Cultureon 02-20-2025 URC Below infection leve l. Mixed Gram Positive Organisms [place]iden Count <1000 MIXC Mixed contaminants. Submit a new specimen if indicated. Normal [facility] Comment on above: Performed By: #### M 100.2200 #### [facility] [address] [place], [address] OB Limited (No Biometrics)on 02-19-2025 OB Limited (No Biometrics) [facility] Imaging Services [address] [place], [place] [id number] OB Limited (No Biometrics) MR#: [id number] Acct: [id number] Name: MADDIE TORRE Rep #: [id number] : 2000 F 24 From: Franklyn danielle MD PCP: AMEE Quinteros Status: REG CLI Study: OB Limited (No Biometrics) Date of Exam: 02/19 Exam# [id number] Ordering Dr: Elle Poe CNM PROCEDURE: OB [...] No evidence of placenta previa. Reading Location: [place] [address] CC: AMAIRANI Poe; TRUCK RENTAL MANAGER-C Minerva Flower Granite Cutter Apprentice: Signed Normal [facility] OB Triage Progress Noteon OB Triage Progress Note [facility] Medical Records Department [address] [place] [address] OB Triage Progress Note 02/19/25 1749 MR#: [id number] Acct: [id number] Name: MADDIE TORRE Rep #: [id number] : 2000 24 From: Elle Poe CNM PCP: Minerva Flower, TRUCK RENTAL MANAGER-C Status:DEP CLI Y DOS: [facility] Progress Notes Date of Service: 02/19/25 Progress Note: Patient presents for triage evaluation secondary to vaginal bleeding at 33.3 weeks at home with wiping. Had vaginal exam yesterday in the office. Urine and culture was collected at appointment. FHT: 130 Moderate variability reactive no decelerations category I tracing Lantry: rare Contractions Assessment and plan: US reassuring, Reactive NST, celestone IM- repeat in 24 hours, No additional bleeding noted, reassuring maternal and status patient discharged to home to follow-up tomorrow for 2nd dose of celestone and next week in office . See problem list details for additional plan information. Charges/Coding Multi Select Codes Urinary/Genital Urinary/Genital CPT Codes: 07324-78 non-stress test Interp Assessment Plan (1) Vaginal bleeding during : PLAN: Reassuring NST and US Celestone x2 No additonal bleeding noted. D/C home (2) Anemia in preg-unspec: QUALIFIERS: Trimester: third trimester Qualified Code(s): O99.013 - Anemia complicating , third trimester (3) affected by growth restriction: COMMENT: growth US 7%- [facility] referral for fu growth scan. [...] Signature (if applicable): Date CC: AMAIRANI Poe; JOHANNA-Tomas Flower Signed Normal [facility] Genital cultureOrdered By: Ba Hodge on 02-18-2025 Source specific culture Neisseria or beta-hemolytic Streptococcus isolated. [facility] Gram Stainon 02-18-2025 GS Reason for Exam: contractions Gram Stain 4+ Gram positive rods 2+ White Blood Cells No Gram negative diplococci Score = 0 Interpretation: 0-3 Normal, 4-6 Intermediate, 7-10 Positive BV Normal [facility] Comment on above: Performed By: #### M 100.2200, L7000.1800 #### [facility] [address] [place], [address] Gram stainOrdered By: Wilfredo Hodge on 02-18-2025 Microscopic observation Gram stain Nom (Unsp spec) [facility] Laboratory - Chemistry and C hemistry - challengeOrdered By: María Elena Hodge on 02-18-2025 Bilirubin Ql (U) Negative [facility] Glucose Ql (U) Negative [facility] Ketones Ql (U) Negative [facility] pH (U) 5.0 [pH] [facility] Specific gravity (U) [Rel density] 1.005 [facility] Urobilinogen (U) [Mass/Vol] 0.8353180 mg/dL [facility] Laboratory - Hematology and Cell countsOrdered By: María Elena Hodge on 02-18-2025 Hemoglobin Ql (U) Negative [facility] Laboratory - Specimen inform ationOrdered By: María Elena Hodge on 02-18-2025 Clarity (U) Clear [facility] Color (U) Yellow [facility] Laboratory - UrinalysisOrder ed By: María Elena Hodge on 02-18-2025 Nitrite Ql (U) Negative [facility] Protein Ql (U) Negative [facility] No Panel InformationOrdered By: María Elena Hodge on 02-18-2025 Urine Leukocytes Negatve [facility] Conduit Mechanic Office Visit Reporton 02-18-2025 Conduit Mechanic Office Visit Report [facility]'s [address], [address] [place] [address] OFFICE VISIT Date of Service: 02/18/25 MR#: [id number] Acct: [id number] Name: MADDIE TORRE Rep #: [id number] : 2000 Provider: Dr. María Elena Jama DO Age/Sex: 24/F Location[place] [facility] [place] Status: Signed Intake Vital Signs 09/23/24 13:32 02/03/25 13:42 02/18/25 14:08 02/18/25 14:09 Height 5 ft 2 in 5 ft 2 in 5 ft 2 in 5 ft 2 in Weight: 196 lb BMI 35.8 BP 113/76 Intake Visit Reasons: 33wk ob [employer] Required: No Is patient in pain?: No [...] mg 137 mg PO QDAY 02/03/25 02/18/25 H istory iron) tablet,extended release (Slow Fe) famotidine 20 mg tablet (Pepcid AC) 20 mg PO BID 02/18/25 02/18/25 History Last Menstrual Period: 06/23/24 Zika: Zika virus screening: Negative : No PFSH PFSH Medical History Spontaneous Family History Grandmother Cancer Lung-Maternal Aunt Cancer Pancreatic- Maternal Social History adopted: No household members: spouse current occupational status: employed 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 Normal [facility] Urine cultureOrdered By: Denise Hodge on 02-18-2025 Bacteria identified Cx Nom (U) Positive Abnormal [facility] Absolute lymphocyte countOrd ered By: Chioma Spirnger on 02-03-2025 Lymphocytes Auto (Unsp spec) [#/Vol] 2.13 10*3/uL 0.83-4.51 [facility] Absolute neutrophil countOrd ered By: Chioma Springer on 02-03-2025 Neutrophils (Bld) [#/Vol] 8.7 10*3/uL High 2.0-7.7 [facility] Automated blood erythrocyte countOrdered By: Chioma Springer on 02-03-2025 RBC (Bld) [#/Vol] 3.53 10*6/uL Low 4.2-5.4 [facility] Comment on above: Performed By: #### M 8200.2203 #### [facility] [address] [place], [place], [address] Automated blood hematocrit ( percentage)Ordered By: Chioma Springer on 02-03-2025 Hematocrit (Bld) [Volume fraction] 33.0 % Low 37-47 [facility] Comment on above: Performed By: #### M 8200.2203 #### [facility] [address] [facility] [place], [place], [address] Automated lymphocyte count a s percentage of total leukocytesOrdered By: Chioma Springer on 02-03-2025 Lymphocytes/100 WBC Auto (Unsp spec) 17.4 % Low 19-41 [facility] Basophil percentageOrdered B y: Chioma Springer on 02-03-2025 Basophils/100 WBC (Bld) 0.2 % Normal 0-1 [facility] Comment on above: Performed By: #### M 8200.2203 #### [facility] [address] [place], [address] CBC W/Diff, Automatedon 05-2 Absolute Lymph 2.13 X10 3/uL Normal 0.83-4.51 [facility] Comment on above: Performed By: #### 8200.2203 #### [facility] [address] [place], [address] Absolute Neut 8.7 X10 3/uL High 2.0-7.7 [facility] Comment on above: Performed By: #### 8200.2203 #### [facility] [address] [place], [address] IG% 2.000 High 0.0-0.9 [facility] Comment on above: Result Comment: IG% - Immature Granulocytes (promyelocytes, myelocytes and metamyelocytes) > 1% indicates that a LEFT SHIFT is Present. Performed By: #### 8200.2203 #### [facility] [address] [place], [address] Lymphocytes/100 WBC (Bld) 17.4 % Low 19-41 [facility] Comment on above: Performed By: #### 8200.2203 #### [facility] [address] [place], [address] Nucleated RBC (Bld) [#/Vol] 0 10*3/uL Normal 0-5 [facility] Comment on above: Performed By: #### M 8200.2203 #### [facility] [address] [place], [address] RDW SD 46.7 fl High 35.1-43.9 [facility] Comment on above: Performed By: #### M 8200.2203 #### [facility] [address] [place], [address] Eosinophil percentageOrdered By: Chioma Springer on 02-03-2025 Eosinophils/100 WBC (Bld) 1.1 % Normal 0-5 [facility] Comment on above: Performed By: #### M 8200.2203 #### [facility] [address] [place], [place], [id number] (756) Erythrocyte distribution wid th ratioOrdered By: Chioma Springer on 02-03-2025 Erythrocyte distribution width (RBC) [Ratio] 13.9 % Normal 11.6-14.6 [facility] Comment on above: Performed By: #### M 8200.2203 #### [facility] [address] [place], [address] Erythrocyte distribution wid th standard deviationOrdered By: Chioma Springer on 02-03-2025 Erythrocyte distribution width (RBC) [Ratio] 46.7 fl High 35.1-43.9 [facility] Hemoglobin measurementOrdere d By: Chioma Springer on 02-03-2025 Hemoglobin (Bld) [Mass/Vol] 10.8 g/dL Low 12.0-15.0 [facility] Comment on above: Performed By: #### M 8200.2203 #### [facility] [address] [facility] [place], [place], [address] Immature granulocytes/100 WB C Auto (Bld)Ordered By: Chioma Springer on 02-03-2025 Immature granulocytes/100 WBC (Bld) 2.000 % High 0.0-0.9 [facility] Comment on above: IG% - Immature Granu locytes (promyelocytes, myelocytes and metamyelocytes) > 1% indicates that a LEFT SHIFT is Present. Laboratory - Chemistry and C hemistry - challengeOrdered By: Chioma Springer on 02-03-2025 Glucose Ql (U) Negative [facility] Laboratory - UrinalysisOrder ed By: Chioma Springer on 02-03-2025 Protein Ql (U) Negative [facility] MCV (mean corpuscular volume ) determinationOrdered By: Chioma Springer on 05-27-2025 MCV (RBC) [Entitic vol] 93.5 fL Normal 81-99 [facility] Comment on above: Performed By: #### M 8200.2203 #### [facility] [address] [place], [address] Mean corpuscular hemoglobin (MCH) determinationOrdered By: Chioma Springer on 02-03-2025 MCH (RBC) [Entitic mass] 30.6 pg Normal 27.0-32.0 [facility] Comment on above: Performed By: #### M 8200.220 #### [facility] [address] [place], [address] Mean corpuscular hemoglobin concentration (MCHC) determinationOrdered By: Chioma Springer on 02-03-2025 MCHC (RBC) [Mass/Vol] 32.7 g/dL Normal 32-36 [facility] Comment on above: Performed By: #### M 8200.2202 #### [facility] [address] [place], [address] Mean platelet volume determi nationOrdered By: Chioma Springer on 02-03-2025 Platelet mean volume (Bld) [Entitic vol] 11.7 fL Normal 6.2-12.0 [facility] Comment on above: Performed By: #### M 8200.2202 #### [facility] [address] [place], [address] Monocyte percentageOrdered B y: Chioma Springer on 02-03-2025 Monocytes/100 WBC (Bld) 8.6 % Normal 0-10 [facility] Comment on above: Performed By: #### M 8200.2203 #### [facility] [address] [place], [address] Neutrophil percentageOrdered By: Chioma Springer on 02-03-2025 Neutrophils/100 WBC (Bld) 70.7 % High 47-70 [facility] Comment on above: Performed By: #### M 8200.220 #### [facility] [address] [place], [address] Nucleated red blood cell per centageOrdered By: Chioma Springer on 02-03-2025 Nucleated RBC/100 WBC (Bld) [Ratio] 0 % 0-5 [facility] Conduit Mechanic Office Visit Reporton 02-03-2025 Conduit Mechanic Office Visit Report [facility]'s [address], [address] [place] [address] OFFICE VISIT Date of Service: 02/03/25 MR#: [id number] Acct: [id number] Name: MADDIE TORRE Rep #: [id number] : 2000 Provider: AMEE diaz Age/Sex: 24/F Location: [facility] [place] Status: Signed Intake Vital Signs 09/23/24 13:32 01/20/25 14:36 02/03/25 13:42 Height 5 ft 2 in 5 ft 2 in 5 ft 2 in Weight: 190 lb 193 lb 6 oz BMI 34.7 35.4 BP 115/75 108/80 Intake Visit Reasons: 32 wk ob Chief Complaint: 32 Week OB [employer] Required: No Is patient in pain?: No [...] occupational 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 Date Name GA/Weeks Outcome Route Bth Weight Gen Labor Lgth [facility]est[facility] FOB 01/09/24 5 spontaneous HPI 32 [...] ??- S (more content not included)... Normal [facility] Platelet countOrdered By: Cristian onealjacques Gian on 02-03-2025 Platelets (Bld) [#/Vol] 232 10*3/uL Normal 150-450 [facility] Comment on above: Performed By: #### M 8200.2203 #### [facility] [address] [place], [place], [address] White blood cell (WBC) count Ordered By: Chioma Springer on 02-03-2025 WBC (Bld) [#/Vol] 12.2 10*3/uL High 4.4-11.0 [facility] Comment on above: Performed By: #### M 8200.2203 #### [facility] [address] [place], [place], [address] Laboratory - Chemistry and C hemistry - challengeOrdered By: Amber Dyer on 01-20-2025 Glucose Ql (U) Negative [facility] Laboratory - UrinalysisOrder ed By: Amber Dyer on 01-20-2025 Protein Ql (U) Negative [facility] Conduit Mechanic Office Visit Reporton 01-20-2025 Conduit Mechanic Office Visit Report [facility] [address], [address] [place] [address] OFFICE VISIT Date of Service: 01/20/25 MR#: [id number] Acct: [id number] Name: HARVEYMADDIE IVERSON Rep #: [id number] : 2000 Provider: AMAIRANI burnett Age/Sex: 24/F Location: [facility] [place] Status: Signed Intake Vital Signs 09/23/24 13:32 01/06/25 12:59 01/20/25 14:36 Height 5 ft 2 in 5 ft 2 in 5 ft 2 in Weight: 190 lb BMI 34.7 BP 115/75 Intake Visit Reasons: 30 wk ob [employer] Required: No Is patient in pain?: No [...] occupational status: employed 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 (more content not included)... Normal [facility] OB Limited With Biometricson 01-08-2025 OB Limited With Biometrics [facility] Imaging Services [address] [place] [address] OB Limited With Biometrics MR#: [id number] Acct: [id number] Name: TORREMADDIE Perez Rep #: [id number] : 2000 F 24 From: Todd Francis MD PCP: Minerva Flower TRUCK RENTAL MANAGER-C Status: REG CLI Study: OB Limited With Biometrics Date of Exam: 01/08 Exam# [id number] Ordering Dr: María Elena Solomon DO PROCEDURE: OB LIMITED WITH BIOMETRICS 01/08/2025 REASON FOR EXAM: FOLLOW UP [facility] TECHNIQUE: High resolution obstetric ultrasound performed using [...] WEIGHT PERCENTILE (24+ weeks): 7.2% Reading Location: [facility] CC: TRUCK RENTAL MANAGER-C Minerva Flower; Dr. María Elena Solomon DO Granite Cutter Apprentice: Signed Normal [facility] Absolute lymphocyte countOrd ered By: María Elena Hodge on 01-06-2025 Lymphocytes Auto (Unsp spec) [#/Vol] 2.08 10*3/uL 0.83-4.51 [facility] Absolute neutrophil countOrd ered By: María Elena Hodge on 01-06-2025 Neutrophils (Bld) [#/Vol] 11.0 10*3/uL High 2.0-7.7 [facility] Automated lymphocyte count a s percentage of total leukocytesOrdered By: María Elena Hodge on 01-06-2025 Lymphocytes/100 WBC Auto (Unsp spec) 14.5 % Low 19-41 [facility] Basophil percentageOrdered B y: María Elena Hodge on 01-06-2025 Basophils/100 WBC (Bld) 0.3 % 0-1 [facility] CBC W/Diff, Automatedon 12-10 Absolute Lymph 2.08 X10 3/uL Normal 0.83-4.51 [facility] Comment on above: Performed By: #### Shaun 8200.2203 #### [facility] [address] [place], [address] Absolute Neut 11.0 X10 3/uL High 2.0-7.7 [facility] Comment on above: Performed By: #### M 8200.2203 #### [facility] [address] [place], [address] Basophils/100 WBC (Bld) 0.3 % Normal 0-1 [facility] Comment on above: Performed By: #### M 8200.2203 #### [facility] [address] [place], [address] Eosinophils/100 WBC (Bld) 1.2 % Normal 0-5 [facility] Comment on above: Performed By: #### M 8200.2203 #### [facility] [address] [place], [address] Erythrocyte distribution width (RBC) [Ratio] 12.7 % Normal 11.6-14.6 [facility] Comment on above: Performed By: #### 8200.2203 #### [facility] [address] [place], [address] Hematocrit (Bld) [Volume fraction] 30.4 % Low 37-47 [facility] Comment on above: Performed By: #### M 8200.220 #### [facility] [address] [place], [address] Hemoglobin (Bld) [Mass/Vol] 10.2 g/dL Low 12.0-15.0 [facility] Comment on above: Performed By: #### 8200.2203 #### [facility] [address] [place], [address] IG% 1.700 High 0.0-0.9 [facility] Comment on above: Result Comment: IG% - Immature Granulocytes (promyelocytes, myelocytes and metamyelocytes) > 1% indicates that a LEFT SHIFT is Present. Performed By: #### 8200.2203 #### [facility] [address] [place], [address] Lymphocytes/100 WBC (Bld) 14.5 % Low 19-41 [facility] Comment on above: Performed By: #### M 8200.2203 #### [facility] [address] [place], [address] MCH (RBC) [Entitic mass] 30.4 pg Normal 27.0-32.0 [facility] Comment on above: Performed By: #### M 8200.2203 #### [facility] [address] [place], [address] MCHC (RBC) [Mass/Vol] 33.6 g/dL Normal 32-36 [facility] Comment on above: Performed By: #### M 8200.2203 #### [facility] [address] [place], [address] MCV (RBC) [Entitic vol] 90.7 fL Normal 81-99 [facility] Comment on above: Performed By: #### 8200.220 #### [facility] [address] [place], [address] Monocytes/100 WBC (Bld) 5.4 % Normal 0-10 [facility] Comment on above: Performed By: #### 8200.220 #### [facility] [address] [place], [address] Neutrophils/100 WBC (Bld) 76.9 % High 47-70 [facility] Comment on above: Performed By: #### 8200.2202 #### [facility] [address] [place], [address] Nucleated RBC (Bld) [#/Vol] 0 10*3/uL Normal 0-5 [facility] Comment on above: Performed By: #### 8200.2202 #### [facility] [address] [place], [address] Platelet mean volume (Bld) [Entitic vol] 11.4 fL Normal 6.2-12.0 [facility] Comment on above: Performed By: #### 8200.2202 #### [facility] [address] [place], [address] Platelets (Bld) [#/Vol] 268 10*3/uL Normal 150-450 [facility] Comment on above: Performed By: #### M 8200.2202 #### [facility] [address] [place], [address] RBC (Bld) [#/Vol] 3.35 10*6/uL Low 4.2-5.4 [facility] Comment on above: Performed By: #### 8200.220 #### [facility] [address] [place], [address] RDW SD 41.2 fl Normal 35.1-43.9 [facility] Comment on above: Performed By: #### M 8200.2203 #### [facility] [address] [place], [address] WBC (Bld) [#/Vol] 14.3 10*3/uL High 4.4-11.0 [facility] Comment on above: Performed By: #### M 8200.2203 #### [facility] [address] [place], [address] Eosinophil percentageOrdered By: María Elena Hodge on 01-06-2025 Eosinophils/100 WBC (Bld) 1.2 % 0-5 [facility] Erythrocyte distribution wid th ratioOrdered By: María Elena Hodge on 01-06-2025 Erythrocyte distribution width (RBC) [Ratio] 12.7 % 11.6-14.6 [facility] Erythrocyte distribution wid th standard deviationOrdered By: María Elena Hodge on 01-06-2025 Erythrocyte distribution width (RBC) [Ratio] 41.2 fl 35.1-43.9 [facility] Glucose Challenge Gest 1H 50 isaiah 01-06-2025 GLU GEST 50g 1H 126 mg/dL Normal 70-140 [facility] Comment on above: Performed By: #### M 8200.2203 #### [facility] [address] [place], [place], [address] Glucose measurement at 2 armani rs post-dose gestational glucose tolerance testOrdered By: María Elena Hodge on 01-06-2025 Glucose [Mass/Vol] 126 mg/dL 70-140 [facility] HIVon 01-06-2025 HIV Non-Reactive Normal Nonreactive [facility] Comment on above: Result Comment: Non- Reactive Reactive Repeatedly reactive samples must be confirmed according to CDC recommended confirmatory algorithms. The subresults for either HIVAG or AHIV can be used as an aid in the selection of the confirmation algorithm for reactive samples. Send out specimens [facility] confirmation. Order the HIV antibody detection and differentiation: lc#[id number] Performed By: #### M 8200.2203 #### [facility] [address] [place], [address] Hematocrit Auto (Bld) [Volum e fraction]Ordered By: María Elena Hodge on 01-06-2025 Hematocrit (Bld) [Volume fraction] 30.4 % Low 37-47 [facility] Hemoglobin measurementOrdere d By: María Elena Hodge on 01-06-2025 Hemoglobin (Bld) [Mass/Vol] 10.2 g/dL Low 12.0-15.0 [facility] Immature granulocytes/100 WB C Auto (Bld)Ordered By: María Elena Hodge on 01-06-2025 Immature granulocytes/100 WBC (Bld) 1.700 % High 0.0-0.9 [facility] Comment on above: IG% - Immature Granu locytes (promyelocytes, myelocytes and metamyelocytes) > 1% indicates that a LEFT SHIFT is Present. Laboratory - Chemistry and C hemistry - challengeOrdered By: Elle Poe on 01-06-2025 Glucose Ql (U) Negative [facility] - UrinalysisOrder ed By: Elle Poe on 01-06-2025 Protein Ql (U) Negative [facility] MCV (mean corpuscular volume ) determinationOrdered By: María Elena Hodge on 01-06-2025 MCV (RBC) [Entitic vol] 90.7 fL 81-99 [facility] Mean corpuscular hemoglobin (MCH) determinationOrdered By: María Elena Hodge on 01-06-2025 MCH (RBC) [Entitic mass] 30.4 pg 27.0-32.0 [facility] Mean corpuscular hemoglobin concentration (MCHC) determinationOrdered By: María Elena Hodge on 01-06-2025 MCHC (RBC) [Mass/Vol] 33.6 g/dL 32-36 [facility] Mean platelet volume determi nationOrdered By: María Elena Hodge on 01-06-2025 Platelet mean volume (Bld) [Entitic vol] 11.4 fL 6.2-12.0 [facility] Monocyte percentageOrdered B y: María Elena Hodge on 01-06-2025 Monocytes/100 WBC (Bld) 5.4 % 0-10 [facility] Neutrophil percentageOrdered By: María Elena Naveen on 01-06-2025 Neutrophils/100 WBC (Bld) 76.9 % High 47-70 [facility] No Panel InformationOrdered By: María Elena Hodge on 01-06-2025 HIV (1&2) Antibody Non-Reactive Nonreactive [facility] Comment on above: Non-ReactiveReactive Repeatedly reactive samples must be confirmed according to CDC recommended confirmatory algorithms. The subresults for either HIVAG or AHIV can be used as an aid in the selection of the confirmation algorithm for reactive samples.Send out specimens with Reactive results to [facility] for confirmation.Order the HIV antibody detection and differentiation: #[id number] Nucleated red blood cell per centageOrdered By: María Elena Hodge on 01-06-2025 Nucleated RBC/100 WBC (Bld) [Ratio] 0 % 0-5 [facility] [employer] Office Visit Reporton 01-06-2025 Conduit Mechanic Office Visit Report [facility] [address], [address] [place] [address] OFFICE VISIT Date of Service: 01/06/25 MR#: [id number] Acct: [id number] Name: HARVEYMADDIE IVERSON Rep #: [id number] : 2000 Provider: AMAIRANI Sainz ams Age/Sex: 24/F Location[place] [facility] [place] [facility] [place] Status: Signed Intake Vital Signs 09/23/24 13:32 12/18/24 14:05 01/06/25 12:59 Height 5 ft 2 in 5 ft 2 in 5 ft 2 in Weight: 188 lb 6 oz BMI 34.4 BP 131/86 H Intake Visit Reasons: 28 wk ob/glucose Chief Complaint: 28wk OB [employer] Required: No Is patient in pain?: No [...] 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 No (more content not included)... Normal [facility] Platelet countOrdered By: Kendall Hodge on 01-06-2025 Platelets (d) [#/Vol] 268 10*3/uL 150-450 [facility] RBC Auto (Bld) [#/Vol]Ordere d By: María Elena Hodge on 01-06-2025 RBC (Bld) [#/Vol] 3.35 10*6/uL Low 4.2-5.4 [facility] Syphilis Antibodieson 2024 Syphilis Abs Non-Reactive Normal Nonreactive [facility] Comment on above: Performed By: #### M 0529.6956 #### [facility] [place], [address] White blood cell (WBC) count Ordered By: María Elena Hodge on 01-06-2025 WBC (Bld) [#/Vol] 14.3 10*3/uL High 4.4-11.0 [facility] - Chemistry and C hemistry - challengeOrdered By: María Elena Hodge on 12-18-2024 Glucose Ql (U) Negative [facility] - UrinalysisOrder ed By: María Elena Hodge on 12-18-2024 Protein Ql (U) Negative [facility] [employer] Office Visit Reporton 12-18-2024 Conduit Mechanic Office Visit Report [facility]'s [address], [address] [place] [address] OFFICE VISIT Date of Service: 12/18/24 MR#: [id number] Acct: [id number] Name: MADDIE TORRE Rep #: [id number] : 2000 Provider: Dr. María Elena Jama DO Age/Sex: 24/F Location[place] [facility] [place] [facility] [place] Status: Signed Intake Vital Signs 09/23/24 13:32 11/18/24 15:40 12/18/24 14:03 12/18/24 14:05 Height 5 ft 2 in 5 ft 2 in 5 ft 2 in 5 ft 2 in Weight: 181 lb 6 oz BMI 33.1 BP 112/77 Intake Visit Reasons: 25 wk ob [employer] Required: No Is patient in pain?: No Allergies No Known Allergies Allergy (Verified 12/18/24 14:03) Medications ???Medication ???Instructions ???Recorded ???Confirmed ???Type ergocalciferol (vitamin D2) 1,250 1,250 mcg PO QWEEK 01/27/2412/18 History mcg (50,000 unit) capsule (Drisdol) ondansetron 4 mg disintegrating 4 mg PO Q6H PRN nausea and 08/09/ 4 12/18/24 Rx tablet vomiting #30 tabs [...] occupational 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 Date Name GA/Weeks Outcome Route Bth Weight Gen Labor Lgth Anesthesia Del [facility] Provider FOB 01/09/24 5 spontaneous [...] 145 -???-???-???-???-?? (more content not included)... Normal [facility] - Chemistry and C hemistry - challengeOrdered By: Chioma Springer on 11-18-2024 Glucose Ql (U) Negative [facility] - UrinalysisOrder ed By: Chioma Springer on 11-18-2024 Protein Ql (U) Negative [facility] Con[employer] Office Visit Reporton 11-18-2024 Conduit Mechanic Office Visit Report [facility]'s [address], [address] [place] [address] OFFICE VISIT Date of Service: 11/18/24 MR#: [id number] Acct: [id number] Name: MADDIE TORRE Rep #: [id number] : 2000 Provider: AMEE diaz Age/Sex: 24/F Location: [facility] [place] Status: Signed Intake Vital Signs 09/23/24 13:32 10/22/24 14:18 11/18/24 15:40 Height 5 ft 2 in 5 ft 2 in 5 ft 2 in Weight: 177 lb 2 oz BMI 32.3 BP 114/72 Intake Visit Reasons: 21 wk ob Chief Complaint: 21 Week OB [employer] Required: No Is patient in pain?: No [...] occupational 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 Date Name GA/Weeks Outcome Route Bth Weight Infant Gen [facility] FOB 01/09/24 5 spontaneous HPI 21 [...] 145 -???-???-???-???-???-? (more content not included)... 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 Reading Location: [id number] CC: AMEE Flower; Dr. 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 gonorrhoeae PCR Negative for N. gonorrhoeae Normal [facility] Comment on above: Performed By: #### M 8200.2203 #### [facility] [address] [place], [address] Conduit Mechanic Office Visit Reporton 10-22-2024 Conduit Mechanic Office Visit Report [facility], [address] [place] [address] OFFICE VISIT Date of Service: 10/22/24 MR#: [id number] Acct: [id number] Name: MADDIE TORRE Rep #: [id number] : 2000 Provider: AMEE diaz Age/Sex: 24/F Location[place] [facility] [place] Status: Signed Intake Vital Signs 09/23/24 13:32 10/22/24 14:18 Height 5 ft 2 in 5 ft 2 in Weight: 172 lb 4 oz BMI 31.5 BP 118/74 Intake Visit Reasons: 17 wk ob Chief Complaint: 17 Week OB [employer] Required: No Is patient in pain?: No Allergies No Known Allergies Allergy (Verified 10/22/24 14:20) Medications ???Medication ???Instructions ???Recorded ???Confirmed ???Type ergocalciferol (vitamin D2) 1,250 1,250 mcg PO QWEEK 05/19/24 02/12 /25 History mcg (50,000 unit) capsule (Drisdol) ondansetron [...] spouse 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 Date Name GA/Weeks Outcome Route Bth Weight Infant Gen Labor Lgth Anesthesia Del Locatn Provider FOB 01/09/24 5 spontaneous HPI 17 [...] ?-???-???-???-???-???-? ??- (more content not included)... Normal [facility] - Chemistry and C hemistry - challengeon 09-23-2024 Glucose Ql (U) Negative [facility] - Urinalysison Protein Ql (U) Negative [facility] Conduit Mechanic Office Visit Reporton 09-23-2024 Conduit Mechanic Office Visit Report [facility]'s [address], [address] [place] [address] OFFICE VISIT Date of Service: 09/23/24 MR#: [id number] Acct: [id number] Name: MADDIE TORRE Rep #: [id number] : 2000 Provider: Dr. 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 Normal [facility] Miscellaneous procedureOrder ed By: Elle Poe on 09-15-2024 Miscellaneous Test Comment SEE SCANNED REPORT [facility] ZAINABon 09-15-2024 KANDACE SEE SCANNED REPORT Normal [facility] Comment on above: Performed By: #### M 100.2200, L7000.1800 #### [facility] [address] [place], [address] Chlamydia/GC SHAYLEE aptimaon CHLAMY,NUC ACID Positive Abnormal Negative [facility] Comment on above: Performed By: #### M 100.2200, L7000.1800 #### [facility] [address] [place], [address] GC BY NUC ACID Negative Normal Negative [facility] Comment on above: Result Comment: Perf ormed at: =G - [facility] [address] [id number] [employer]user Circular: Ilsa Crystal MD, Phone: [phone] Performed By: #### M 100.2200, L7000.1800 #### [facility] [address] [place], [address] HIV - WCHon 08-25-2024 HIV Non-Reactive Normal Nonreactive [facility] Comment on above: Order Comment: Reaso n for Exam: Performed By: #### M 8200.2203 #### [facility] [address] [place], [address] Hepatitis B Surface Antigeno n 08-25-2024 HEP B Surf Ag Non-Reactive Normal Nonreactive [facility] Comment on above: Order Comment: Reaso n for Exam: Performed By: #### M 8200.2203 #### [facility] [address] [place], [address] Hepatitis C Antibodyon 08-25 Hepatitis C AB Non-Reactive Normal Nonreactive [facility] Comment on above: Order Comment: Reaso n for Exam: Result Comment: Non Reactive: < 0.8 Equivocal: >/= 0.8 to < 1.0 Reactive: >/= 1.0 The CDC requires that a reactive/equivocal HCV antibody result be sent out for confirmation. HCV Quant by PCR testing. Performed By: #### M 8200.2203 #### [facility] [address] [place], [address] L509.8000on 08-25-2024 Syphilis Abs Non-Reactive Normal [facility] Comment on above: Order Comment: Reaso n for Exam: Performed By: #### M 8200.2203 #### [facility] [address] [place], [address] Rubella IgGon 08-25-2024 Rubella IgG Reactive Normal Nonreactive [facility] Comment on above: Order Comment: Reaso n for Exam: Result Comment: Anti body Results Interpretation of Immune Status Non Reactive Presumed Non-Immune Equivocal Equivocal Reactive Presumed Immune Performed By: #### L 501.9985, L3890.6300, L3890.6005, L509.8000, BTS, L3890.6100, L100.0100, L509.4005 #### [facility] [address] [place], [address] Urine Cultureon 08-23-2024 URC Culture exhibits no growth. Normal [facility] Comment on above: Performed By: #### M 100.2200, L7000.1800 #### [facility] [address] [place], [address] Absolute neutrophil countOrd ered By: Elle Poe on 08-22-2024 Neutrophils (Bld) [#/Vol] 6.2 10*3/uL 2.0-7.7 [facility] Basophil percentageOrdered B y: Elle Poe on 08-22-2024 Basophils/100 WBC (Bld) 0.4 % 0-1 [facility] C. trachomatis rRNA SHAYLEE+prob e Ql (Unsp spec)Ordered By: Elle Poe on 08-22-2024 Chlamydia DNA (SHAYLEE) Positive High Negative [facility] CBC W/Diff, Automatedon 08-10 Absolute Lymph 2.27 X10 3/uL Normal 0.83-4.51 [facility] Comment on above: Performed By: #### L 501.9985, L3890.6300, L3890.6005, L509.8000, BTS, L3890.6100, L100.0100, L509.4005 #### [facility] [address] [place], [address] Absolute Neut 6.2 X10 3/uL Normal 2.0-7.7 [facility] Comment on above: Performed By: #### L 501.9985, L3890.6300, L3890.6005, L509.8000, BTS, L3890.6100, L100.0100, L509.4005 #### [facility] [address] [place], [address] Basophils/100 WBC (Bld) 0.4 % Normal 0-1 [facility] Comment on above: Performed By: #### L 501.9985, L3890.6300, L3890.6005, L509.8000, BTS, L3890.6100, L100.0100, L509.4005 #### [facility] [address] [place], [address] Eosinophils/100 WBC (Bld) 2.2 % Normal 0-5 [facility] Comment on above: Performed By: #### L 501.9985, L3890.6300, L3890.6005, L509.8000, BTS, L3890.6100, L100.0100, L509.4005 #### [facility] [address] [place], [address] Erythrocyte distribution width (RBC) [Ratio] 12.2 % Normal 11.6-14.6 [facility] Comment on above: Performed By: #### L 501.9985, L3890.6300, L3890.6005, L509.8000, BTS, L3890.6100, L100.0100, L509.4005 #### [facility] [address] [place], [address] Hematocrit (Bld) [Volume fraction] 37.7 % Normal 37-47 [facility] Comment on above: Performed By: #### L 501.9985, L3890.6300, L3890.6005, L509.8000, BTS, L3890.6100, L100.0100, L509.4005 #### [facility] [address] [place], [address] Hemoglobin (Bld) [Mass/Vol] 12.7 g/dL Normal 12.0-15.0 [facility] Comment on above: Performed By: #### L 501.9985, L3890.6300, L3890.6005, L509.8000, BTS, L3890.6100, L100.0100, L509.4005 #### [facility] [address] [place], [address] IG% 0.400 Normal 0.0-0.9 [facility] Comment on above: Result Comment: IG% - Immature Granulocytes (promyelocytes, myelocytes and metamyelocytes) > 1% indicates that a LEFT SHIFT is Present. Performed By: #### L 501.9985, L3890.6300, L3890.6005, L509.8000, BTS, L3890.6100, L100.0100, L509.4005 #### [facility] [address] [place], [address] Lymphocytes/100 WBC (Bld) 23.7 % Normal 19-41 [facility] Comment on above: Performed By: #### L 501.9985, L3890.6300, L3890.6005, L509.8000, BTS, L3890.6100, L100.0100, L509.4005 #### [facility] [address] [place], [address] MCH (RBC) [Entitic mass] 29.5 pg Normal 27.0-32.0 [facility] Comment on above: Performed By: #### L 501.9985, L3890.6300, L3890.6005, L509.8000, BTS, L3890.6100, L100.0100, L509.4005 #### [facility] [address] [place], [address] MCHC (RBC) [Mass/Vol] 33.7 g/dL Normal 32-36 [facility] Comment on above: Performed By: #### L 501.9985, L3890.6300, L3890.6005, L509.8000, BTS, L3890.6100, L100.0100, L509.4005 #### [facility] [address] [place], [address] MCV (RBC) [Entitic vol] 87.5 fL Normal 81-99 [facility] Comment on above: Performed By: #### L 501.9985, L3890.6300, L3890.6005, L509.8000, BTS, L3890.6100, L100.0100, L509.4005 #### [facility] [address] [place], [address] Monocytes/100 WBC (Bld) 8.4 % Normal 0-10 [facility] Comment on above: Performed By: #### L 501.9985, L3890.6300, L3890.6005, L509.8000, BTS, L3890.6100, L100.0100, L509.4005 #### [facility] [address] [place], [address] Neutrophils/100 WBC (Bld) 64.9 % Normal 47-70 [facility] Comment on above: Performed By: #### L 501.9985, L3890.6300, L3890.6005, L509.8000, BTS, L3890.6100, L100.0100, L509.4005 #### [facility] [address] [place], [address] Nucleated RBC (Bld) [#/Vol] 0 10*3/uL Normal 0-5 [facility] Comment on above: Performed By: #### L 501.9985, L3890.6300, L3890.6005, L509.8000, BTS, L3890.6100, L100.0100, L509.4005 #### [facility] [address] [place], [address] Platelet mean volume (Bld) [Entitic vol] 11.8 fL Normal 6.2-12.0 [facility] Comment on above: Performed By: #### L 501.9985, L3890.6300, L3890.6005, L509.8000, BTS, L3890.6100, L100.0100, L509.4005 #### [facility] [address] [place], [address] Platelets (Bld) [#/Vol] 264 10*3/uL Normal 150-450 [facility] Comment on above: Performed By: #### L 501.9985, L3890.6300, L3890.6005, L509.8000, BTS, L3890.6100, L100.0100, L509.4005 #### [facility] [address] [place], [address] RBC (Bld) [#/Vol] 4.31 10*6/uL Normal 4.2-5.4 [facility] Comment on above: Performed By: #### L 501.9985, L3890.6300, L3890.6005, L509.8000, BTS, L3890.6100, L100.0100, L509.4005 #### [facility] [address] [place], [address] RDW SD 39.5 fl Normal 35.1-43.9 [facility] Comment on above: Performed By: #### L 501.9985, L3890.6300, L3890.6005, L509.8000, BTS, L3890.6100, L100.0100, L509.4005 #### [facility] [address] [place], [address] WBC (Bld) [#/Vol] 9.6 10*3/uL Normal 4.4-11.0 [facility] Comment on above: Performed By: #### L 501.9985, L3890.6300, L3890.6005, L509.8000, BTS, L3890.6100, L100.0100, L509.4005 #### [facility] [address] [place], [address] Eosinophil percentageOrdered By: Elle Poe on 08-22-2024 Eosinophils/100 WBC (Bld) 2.2 % 0-5 [facility] Erythrocyte distribution wid th ratioOrdered By: Elle Poe on 08-22-2024 Erythrocyte distribution width (RBC) [Ratio] 12.2 % 11.6-14.6 [facility] Erythrocyte distribution wid th standard deviationOrdered By: Elle Poe on 08-22-2024 Erythrocyte distribution width (RBC) [Entitic vol] 39.5 fL 35.1-43.9 [facility] HIV 1+2 Ab+HIV1 p24 Ag IA Ql Ordered By: Elle Poe on 08-22-2024 HIV (1&2) Antibody Non-Reactive Nonreactive [facility] Hematocrit Auto (Bld) [Volum e fraction]Ordered By: Elle Poe on 08-22-2024 Hematocrit (Bld) [Volume fraction] 37.7 % 37-47 [facility] Hemoglobin A1con 08-22-2024 HbA1c (Bld) [Mass fraction] 5.0 % Normal 3.8-5.6 [facility] Comment on above: Result Comment: Norm al < 5.7 % Prediabetic 5.7 - 6.4 % Diabetic >or= 6.5 % Please note range changes. Performed By: #### L 501.9985, L3890.6300, L3890.6005, L509.8000, BTS, L3890.6100, L100.0100, L509.4005 #### [facility] [place], [address] Hemoglobin A1c percentageOrd ered By: Elle Poe on 08-22-2024 HbA1c (Bld) [Mass fraction] 5.0 % 3.8-5.6 [facility] Comment on above: Normal < 5.7 % Predi abetic 5.7 - 6.4 % Diabetic >or= 6.5 % Please note range changes. Hemoglobin measurementOrdere d By: Elle Poe on 08-22-2024 Hemoglobin (Bld) [Mass/Vol] 12.7 g/dL 12.0-15.0 [facility] Hepatitis B surface antigen detectionOrdered By: Elle Poe on 08-22-2024 Hepatitis B Surface Antigen Non-Reactive Nonreactive [facility] Hepatitis C virus antibody a ssayOrdered By: Elle Poe on 08-22-2024 Hepatitis C Antibody Non-Reactive Nonreactive [facility] Comment on above: Non Reactive: < 0.8 Equivocal: >/= 0.8 to < 1.0 Reactive: >/= 1.0The CDC requires that a reactive/equivocal HCV antibody result be sent out for confirmation. HCV Quant by PCR testing. Immature granulocytes/100 WB C Auto (Bld)Ordered By: Elle Poe on 08-22-2024 Immature granulocytes/100 WBC (Bld) 0.400 % 0.0-0.9 [facility] Comment on above: IG% - Immature Granu locytes (promyelocytes, myelocytes and metamyelocytes) > 1% indicates that a LEFT SHIFT is Present. Lymphocytes Auto (Unsp spec) [#/Vol]Ordered By: Elle Poe on 08-22-2024 Lymphocytes (Bld) [#/Vol] 2.27 10*3/uL 0.83-4.51 [facility] Lymphocytes/100 WBC Auto (Un sp spec)Ordered By: Elle Poe on 08-22-2024 Lymphocytes/100 WBC (Bld) 23.7 % 19-41 [facility] MCV (mean corpuscular volume ) determinationOrdered By: Elle Poe on 08-22-2024 MCV (RBC) [Entitic vol] 87.5 fL 81-99 [facility] Mean corpuscular hemoglobin (MCH) determinationOrdered By: Elle Poe on 08-22-2024 MCH (RBC) [Entitic mass] 29.5 pg 27.0-32.0 [facility] Mean corpuscular hemoglobin concentration (MCHC) determinationOrdered By: Elle Poe on 08-22-2024 MCHC (RBC) [Mass/Vol] 33.7 g/dL 32-36 [facility] Mean platelet volume determi nationOrdered By: Elle Poe on 08-22-2024 Platelet mean volume (Bld) [Entitic vol] 11.8 fL 6.2-12.0 [facility] Monocyte percentageOrdered B y: Elle Poe on 08-22-2024 Monocytes/100 WBC (Bld) 8.4 % 0-10 [facility] Neisseria gonorrhoeae nuclei c acid detection by amplified probe techniqueOrdered By: Elle Poe on 08-22-2024 N. gonorrhoeae DNA SHAYLEE+probe Ql (Unsp spec) Negative Negative [facility] Comment on above: Performed at: =[address] [id number] Director: Ilsa Crystal MD, Phone: [phone] Neutrophil percentageOrdered By: Elle Poe on 08-22-2024 Neutrophils/100 WBC (Bld) 64.9 % 47-70 [facility] Nucleated red blood cell per centageOrdered By: Elle Poe on 08-22-2024 Nucleated RBC/100 WBC (Bld) [Ratio] 0 % 0-5 [facility] [employer] Office Visit Reporton 08-22-2024 Con[employer] Office Visit Report [facility]'[address], [address] [place] [address] OFFICE VISIT Date of Service: 08/22/24 MR#: [id number] Acct: [id number] Name: MADDIE TORRE Rep #: [id number] : 2000 Provider: AMAIRANI Sainz ams Age/Sex: 24/F Location[place] [facility] [place] [facility] [place] Status: Signed Intake Vital Signs 02/13/24 11:38 08/13/24 14:05 08/22/24 14:24 Height 5 ft 2 in 5 ft 2 in 5 ft 2 in Weight: 120 lb BMI 21.9 BP 120/86 H Intake Visit Reasons: New OB, LMP 06/23, ITZEL 03/30/25 [employer] Required: No Is patient in pain?: No [...] occupational status: employed current occupation: [employer] current occupational exposures/hazards: No pets and animals: [...] home: Yes 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 Normal [facility] Platelet countOrdered By: Delmar Poe on 08-22-2024 Platelets (Bld) [#/Vol] 264 10*3/uL 150-450 [facility] RBC Auto (Bld) [#/Vol]Ordere d By: Elle Poe on 08-22-2024 RBC (Bld) [#/Vol] 4.31 10*6/uL 4.2-5.4 [facility] Rubella immune status IgGOrd ered By: Elle Poe on 08-22-2024 Rubella IgG Antibody Reactive Nonreactive [facility] Comment on above: Antibody Results Int erpretation of Immune Status Non Reactive Presumed Non-Immune Equivocal Equivocal Reactive Presumed Immune Transvaginal w/Preg USon Transvaginal w/Preg [facility] [address] [place], [place] [id number] Transvaginal w/Preg MR#: [id number] Acct: [id number] Name: HRAVEYMADDIE IVERSON Rep #: [id number] : 2000 F 24 From: Sarthak Rosas MD PCP: SERGE QuinterosC Status: REG CLI Study: Transvaginal w/Preg US Date of Exam: 08/22/24 Exam# [id number] Ordering Dr: Radha Peters [id number] STUDY: FIRST TRIMESTER OBSTETRICAL ULTRASOUND REASON FOR [...] CC: AMEE Flower; Dr. 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 [place], [place], [address] ABO and Rh group Nom (Bld) Blood group O Rh(D) positive [facility] Comment on above: Order Comment: PN Performed By: #### L 501.9985, L3890.6300, L3890.6005, L509.8000, BTS, L3890.6100, L100.0100, L509.4005 #### [facility] [address] [place], [place], [id number] Urine cultureOrdered By: Chas Poe on 08-22-2024 Bacteria identified Cx Nom (U) Culture exhibits no growth. 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 Normal [facility] HCG ( test) QlOrder ed By: Radha Peters on 08-11-2024 Human Chorionic Gonadotropin, Quant 30531 mIU/mL High <4 [facility] Comment on above: hCG levels with Gest ational AgeGestational Age hCG mIU/mL (IU/L)0.2 - 1 week 5 - 501-2 weeks 50 - 5002-3 weeks 100 - 46597-8 weeks 500 - 610895-0 weeks 1000 - 849710-5 weeks 07907 - 100,0006-8 weeks 30145 - 200,0002-3 months 87999 - 100,000 [employer] Office Visit Reporton 08-11-2024 Conduit Mechanic Office Visit Report [facility] [address], [address] [place] [address] OFFICE VISIT Date of Service: 08/11/24 MR#: [id number] Acct: [id number] Name: MADDIE TORRE Rep #: [id number] : 2000 Provider: Dr. Radha stanford MD Age/Sex: 24/F Location: [facility] [place] Status: Signed Intake Vital Signs 02/13/24 11:38 08/11/24 11:46 Height 5 ft 2 in 5 ft 2 in Weight: 166 lb 8 oz 166 lb 6 oz BMI 30.4 30.4 BP 114/72 128/84 H Intake Visit Reasons: Spotting, new OB is next week [employer] Required: No Is patient in pain?: No Allergies No Known Allergies Allergy (Verified 08/11/24 11:51) Post menopausal: No Patient : Yes : No PFSH Medical History Spontaneous Family History Grandmother Cancer Lung-Maternal Aunt Cancer Pancreatic- Maternal Social History household members: spouse current occupational status: employed current occupation: [employer] Smoking Status: Never smoker alcohol intake: never substance use type: does not use seatbelt use: always do you feel safe at home: Yes 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 08/11/24 172 Date Radha Peters MD Cosign Signature: Date (if applicable) CC: Normal [facility] Type AND Screenon 08-11-2024 ABO and Rh group Nom (Bld) Blood group O Rh(D) positive Normal [facility] Comment on above: Order Comment: PN Performed By: #### M 100.4530, L7000.1800 #### [facility] [address] [place], [address] hCG Titer Quant., Serumon HCG QUANT. 16236 mIU/mL High 1-3 [facility] Comment on above: Result Comment: hCG levels with Gestational Age Gestational Age hCG mIU/mL (IU/L) 0.2 - 1 week 5 - 50 1-2 weeks 50 - 500 2-3 weeks 100 - 5000 3-4 weeks 500 - 85619 4-5 weeks 1000 - 86646 5-6 weeks 42591 - 100,000 6-8 weeks 19783 - 200,000 2-3 months 71221 - 100,000 Performed By: #### M 100.2200, L7000.1800 #### [facility] [address] [place], [address] CBC W Auto Differential pane l (Bld)on 07-29-2024 Basophils (Bld) [#/Vol] 0.04 x10*3/uL Normal 0.00-0.10 [facility] Comment on above: Performed By: #### 2 276-4 #### MIGUEL GUALLPA ([id number]) [facility] ([facility]) [address] [place] [address] Basophils/100 WBC (Bld) 0.3 % Normal 0.0-2.0 [facility] Comment on above: Performed By: #### 2 276-4 #### MIGUEL GUALLPA ([id number]) [facility] ([facility]) [address] [place] [address] Eosinophils (Bld) [#/Vol] 0.16 x10*3/uL Normal 0.00-0.70 [facility] Comment on above: Performed By: #### 2 276-4 #### MIGUEL GUALLPA ([id number]) [facility] ([facility]) [address] [place] [address] Eosinophils/100 WBC (Bld) 1.3 % Normal 0.0-6.0 [facility] Comment on above: Performed By: #### 2 276-4 #### MIGUEL GUALLPA ([id number]) [facility] ([facility]) [address] [place] [address]286 Erythrocyte distribution width (RBC) [Ratio] 12.5 % Normal 11.5-14.5 [facility] Comment on above: Performed By: #### 2 276-4 #### MIGUEL GUALLPA ([id number]) [facility] ([facility]) [address] [place] [address]99[address] Hematocrit (Bld) [Volume fraction] 39.7 % Normal 36.0-46.0 [facility] Comment on above: Performed By: #### 2 276-4 #### MIGUEL GUALLPA ([id number]) [facility] ([facility]) [address] [place] [address] Hemoglobin (Bld) [Mass/Vol] 12.8 g/dL Normal 12.0-16.0 [facility] Comment on above: Performed By: #### 2 276-4 #### MIGUEL GUALLPA ([id number]) [facility] ([facility]) [address] [place] [address]3526 Immature granulocytes (Bld) [#/Vol] 0.04 x10*3/uL Normal 0.00-0.70 [facility] Comment on above: Performed By: #### 2 276-4 #### MIGUEL GUALLPA ([id number]) [facility] ([facility]) [address] [place] [address]693 Immature granulocytes/100 WBC (Bld) 0.3 % Normal 0.0-0.9 [facility] Comment on above: Result Comment: Shelley ture Granulocyte Count (IG) includes promyelocytes, myelocytes and metamyelocytes but does not include bands. Percent differential counts (%) should be interpreted in the context of the absolute cell counts (cells/UL). Performed By: #### 2 276-4 #### MIGUEL GUALLPA ([id number]) [facility] ([facility]) [address] [place] [address] 67841 Lymphocytes (Bld) [#/Vol] 2.65 x10*3/uL Normal 1.20-4.80 [facility] Comment on above: Performed By: #### 2 276-4 #### MIGUEL GUALLPA ([id number]) [facility] ([facility]) [address] [place] [address] 15802 Lymphocytes/100 WBC (Bld) 21.9 % Normal 13.0-44.0 [facility] Comment on above: Performed By: #### 2 276-4 #### MIGUEL GUALLPA ([id number]) [facility] ([facility]) [address] [place] [address] 45437 MCH (RBC) [Entitic mass] 29.4 pg Normal 26.0-34.0 [facility] Comment on above: Performed By: #### 2 276-4 #### MIGUEL GUALLPA ([id number]) [facility] ([facility]) [address] [place] [address] 30705 MCHC (RBC) [Mass/Vol] 32.2 g/dL Normal 32.0-36.0 [facility] Comment on above: Performed By: #### 2 276-4 #### MIGUEL GUALLPA ([id number]) [facility] ([facility]) [address] [place] [address] 69722 MCV (RBC) [Entitic vol] 91 fL Normal 80-100 [facility] Comment on above: Performed By: #### 2 276-4 #### MIGUEL GUALLPA ([id number]) [facility] ([facility]) [address] [place] [address] 27501 Monocytes (Bld) [#/Vol] 0.72 x10*3/uL Normal 0.10-1.00 [facility] Comment on above: Performed By: #### 2 276-4 #### MIGUEL GUALLPA ([id number]) [facility] ([facility]) [address] [place] [address] 27088 Monocytes/100 WBC (Bld) 6.0 % Normal 2.0-10.0 [facility] Comment on above: Performed By: #### 2 276-4 #### MIGUEL GUALLPA ([id number]) [facility] ([facility]) [address] [place] [address] 38772 Neutrophils (Bld) [#/Vol] 8.49 x10*3/uL High 1.20-7.70 [facility] Comment on above: Result Comment: Perc ent differential counts (%) should be interpreted in the context of the absolute cell counts (cells/uL). Performed By: #### 2 276-4 #### MIGUEL GUALLPA ([id number]) [facility] ([facility]) [address] [place] [address] 73271 Neutrophils/100 WBC (Bld) 70.2 % Normal 40.0-80.0 [facility] Comment on above: Performed By: #### 2 276-4 #### MIGUEL GUALLPA ([id number]) [facility] ([facility]) [address] [place] [address] 12339 Nucleated RBC/100 WBC (Bld) [Ratio] 0.0 /100 WBCs Normal 0.0-0.0 [facility] Comment on above: Performed By: #### 2 276-4 #### MIGUEL GUALLPA ([id number]) [facility] ([facility]) [address] [place] [address] 73798 Platelets (Bld) [#/Vol] 308 x10*3/uL Normal 150-450 [facility] Comment on above: Performed By: #### 2 276-4 #### MIGUEL GUALLPA ([id number]) [facility] ([facility]) [address] [place] [address] 97674 RBC (Bld) [#/Vol] 4.36 x10*6/uL Normal 4.00-5.20 [facility] Comment on above: Performed By: #### 2 276-4 #### MIGUEL GUALLPA ([id number]) [facility] ([facility]) [address] [place] [address] 34429 WBC (Bld) [#/Vol] 12.1 x10*3/uL High 4.4-11.3 [facility] Comment on above: Performed By: #### 2 276-4 #### MIGUEL GUALLPA ([id number]) [facility] ([facility]) [address] [place] [address] 48980 Choriogonadotropin.beta subu niton 07-29-2024 HCG.beta subunit Qn 257 m[IU]/mL High <5 [facility] Comment on above: Order Comment: Total HCG measurement is performed using the Daphne Rekha Access Immunoassay which detects intact HCG and free beta HCG subunit. This test is not indicated for use as a tumor marker. HCG testing is performed using a different test methodology at [facility] than other [facility]. Direct result comparison should only be [...] By: #### 2 276-4 #### MIGUEL GUALLPA ([id number]) [facility] ([facility]) [address] [place] [address] 54483 CBC W Auto Differential pane l (Bld)on 07-25-2024 Basophils (Bld) [#/Vol] 0.03 x10*3/uL Normal 0.00-0.10 [facility] Comment on above: Performed By: #### 5 7021-8 #### MIGUEL GUALLPA ([id number]) [facility] ([facility]) [address] [place] [address] 05834 Basophils/100 WBC (Bld) 0.2 % Normal 0.0-2.0 [facility] Comment on above: Performed By: #### 5 7021-8 #### MIGUEL GUALLPA ([id number]) [facility] ([facility]) [address] [place] [address] 65060 Eosinophils (Bld) [#/Vol] 0.16 x10*3/uL Normal 0.00-0.70 [facility] Comment on above: Performed By: #### 5 7021-8 #### MIGUEL GUALLPA ([id number]) [facility] ([facility]) [address] [place] [address] 74493 Eosinophils/100 WBC (Bld) 1.2 % Normal 0.0-6.0 [facility] Comment on above: Performed By: #### 5 7021-8 #### MIGUEL GUALLPA ([id number]) [facility] ([facility]) [address] [place] [address] 35248 Erythrocyte distribution width (RBC) [Ratio] 12.3 % Normal 11.5-14.5 [facility] Comment on above: Performed By: #### 5 7021-8 #### MIGUEL GUALLPA ([id number]) [facility] ([facility]) [address] [place] [address] 85717 Hematocrit (Bld) [Volume fraction] 37.7 % Normal 36.0-46.0 [facility] Comment on above: Performed By: #### 5 7021-8 #### MIGUEL GUALLPA ([id number]) [facility] ([facility]) [address] [place] [address] 27849 Hemoglobin (Bld) [Mass/Vol] 12.6 g/dL Normal 12.0-16.0 [facility] Comment on above: Performed By: #### 5 7021-8 #### MIGUEL GUALLPA ([id number]) [facility] ([facility]) [address] [place] [address] 62783 Immature granulocytes (Bld) [#/Vol] 0.04 x10*3/uL Normal 0.00-0.70 [facility] Comment on above: Performed By: #### 5 7021-8 #### MIGUEL GUALLPA ([id number]) [facility] ([facility]) [address] [place] [address] 48231 Immature granulocytes/100 WBC (Bld) 0.3 % Normal 0.0-0.9 [facility] Comment on above: Result Comment: Shelley ture Granulocyte Count (IG) includes promyelocytes, myelocytes and metamyelocytes but does not include bands. Percent differential counts (%) should be interpreted in the context of the absolute cell counts (cells/UL). Performed By: #### 5 7021-8 #### MIGUEL GUALLPA ([id number]) [facility] ([facility]) [address] [place] [address] 28747 Lymphocytes (Bld) [#/Vol] 2.68 x10*3/uL Normal 1.20-4.80 [facility] Comment on above: Performed By: #### 5 7021-8 #### MIGUEL GUALLPA ([id number]) [facility] ([facility]) [address] [place] [address] 40719 Lymphocytes/100 WBC (Bld) 20.0 % Normal 13.0-44.0 [facility] Comment on above: Performed By: #### 5 7021-8 #### MIGUEL GUALLPA ([id number]) [facility] ([facility]) [address] [place] [address] 93273 MCH (RBC) [Entitic mass] 29.8 pg Normal 26.0-34.0 [facility] Comment on above: Performed By: #### 5 7021-8 #### MIGUEL GUALLPA ([id number]) [facility] ([facility]) [address] [place] [address] 79084 MCHC (RBC) [Mass/Vol] 33.4 g/dL Normal 32.0-36.0 [facility] Comment on above: Performed By: #### 5 7021-8 #### MIGUEL GUALLPA ([id number]) [facility] ([facility]) [address] [place] [address] 65402 MCV (RBC) [Entitic vol] 89 fL Normal 80-100 [facility] Comment on above: Performed By: #### 5 7021-8 #### MIGUEL GUALLPA ([id number]) [facility] ([facility]) [address] [place] [address] 42592 Monocytes (Bld) [#/Vol] 0.64 x10*3/uL Normal 0.10-1.00 [facility] Comment on above: Performed By: #### 5 7021-8 #### MIGUEL GUALLPA ([id number]) [facility] ([facility]) [address] [place] [address] 12171 Monocytes/100 WBC (Bld) 4.8 % Normal 2.0-10.0 [facility] Comment on above: Performed By: #### 5 7021-8 #### MIGUEL GUALLPA ([id number]) [facility] ([facility]) [address] [place] [address] 41520 Neutrophils (Bld) [#/Vol] 9.84 x10*3/uL High 1.20-7.70 [facility] Comment on above: Result Comment: Perc ent differential counts (%) should be interpreted in the context of the absolute cell counts (cells/uL). Performed By: #### 5 7021-8 #### MIGUEL GUALLPA ([id number]) [facility] ([facility]) [address] [place] [address] 56404 Neutrophils/100 WBC (Bld) 73.5 % Normal 40.0-80.0 [facility] Comment on above: Performed By: #### 5 7021-8 #### MIGUEL GUALLPA ([id number]) [facility] ([facility]) [address] [place] [address] 81646 Nucleated RBC/100 WBC (Bld) [Ratio] 0.0 /100 WBCs Normal 0.0-0.0 [facility] Comment on above: Performed By: #### 5 7021-8 #### MIGUEL GUALLPA ([id number]) [facility] ([facility]) [address] [place] [address] 10067 Platelets (Bld) [#/Vol] 291 x10*3/uL Normal 150-450 [facility] Comment on above: Performed By: #### 5 7021-8 #### MIGUEL GUALLPA ([id number]) [facility] ([facility]) [address] [place] [address] 03530 RBC (Bld) [#/Vol] 4.23 x10*6/uL Normal 4.00-5.20 [facility] Comment on above: Performed By: #### 5 7021-8 #### MIGUEL GUALLPA ([id number]) [facility] ([facility]) [address] [place] [address] 03013 WBC (Bld) [#/Vol] 13.4 x10*3/uL High 4.4-11.3 [facility] Comment on above: Performed By: #### 5 7021-8 #### MIGUEL GUALLPA ([id number]) [facility] ([facility]) [address] [place] [address] 58920 Calcidiolon 07-25-2024 25-hydroxyvitamin D3 [Mass/Vol] 18 ng/mL Low 30-100 [facility] Comment on above: Order Comment: Defic iency: < 20 ng/mlInsufficiency: 20-29 ng/mlSufficiency: 30-100 ng/mlThis assay accurately quantifies the sum of Vitamin D3, 25-Hydroxy and Vitamin D2,25-Hydroxy. Performed By: #### 2 276-4 #### MIGUEL GUALLPA ([id number]) [facility] ([facility]) [address] [place] [address] 86554 Choriogonadotropin.beta subu niton 07-25-2024 HCG.beta subunit Qn 16 m[IU]/mL High <5 [facility] Comment on above: Order Comment: Total HCG measurement is performed using the Daphne [employer] Access Immunoassay which detects intact HCG and free beta HCG subunit. This test is not indicated for use as a tumor marker. HCG testing is performed using a different test methodology at [facility] than other [facility]. Direct result comparison should only be [...] By: #### 2 1198-7 #### MIGUEL GUALLPA ([id number]) [facility] ([facility]) [address] [place], [place] [id number] Cobalaminson 07-25-2024 Cobalamin (Vitamin B12) [Mass/Vol] 166 pg/mL Low 211-911 [facility] Comment on above: Performed By: #### 2 276-4 #### MIGUEL GUALLPA ([id number]) [facility] ([facility]) [address] [place] [address] 04306 Comprehensive metabolic 2000 panelon 07-25-2024 Albumin BCP dye [Mass/Vol] 4.4 g/dL Normal 3.4-5.0 [facility] Comment on above: Performed By: #### 2 4323-8 #### MIGUEL GUALLPA ([id number]) [facility] ([facility]) [address] [place] [address] 71786 ALP [Catalytic activity/Vol] 70 U/L Normal 33-110 [facility] Comment on above: Performed By: #### 2 4323-8 #### MIGUEL GUALLPA ([id number]) [facility] ([facility]) [address] [place] [address] ALT With P-5'-P [Catalytic activity/Vol] 14 U/L Normal 7-45 [facility] Comment on above: Result Comment: Erlinda ents treated with Sulfasalazine may generate falsely decreased results for ALT. Performed By: #### 2 4323-8 #### MIGUEL GUALLPA ([id number]) [facility] ([facility]) [address] [place] [address] Anion gap [Moles/Vol] 9 mmol/L Low 10-20 [facility] Comment on above: Performed By: #### 2 432-8 #### MIGUEL GUALLPA ([id number]) [facility] ([facility]) [address] [place] [address] AST With P-5'-P [Catalytic activity/Vol] 15 U/L Normal 9-39 [facility] Comment on above: Performed By: #### 2 432-8 #### MIGUEL GUALLPA ([id number]) [facility] ([facility]) [address] [place] [address] Bilirubin [Mass/Vol] 0.3 mg/dL Normal 0.0-1.2 [facility] Comment on above: Performed By: #### 2 432-8 #### MIGUEL GUALLPA ([id number]) [facility] ([facility]) [address] [place] [address] Calcium [Mass/Vol] 9.3 mg/dL Normal 8.6-10.3 [facility] Comment on above: Performed By: #### 2 4323-8 #### MIGUEL GUALLPA ([id number]) [facility] ([facility]) [address] [place] [address] 91093 Chloride [Moles/Vol] 103 mmol/L Normal 98-107 [facility] Comment on above: Performed By: #### 2 4323-8 #### MIGUEL GUALLPA ([id number]) [facility] ([facility]) [address] [place] [address] CO2 [Moles/Vol] 26 mmol/L Normal 21-32 [facility] Comment on above: Performed By: #### 2 4323-8 #### MIGUEL GUALLPA ([id number]) [facility] ([facility]) [address] [place] [address] 90111 Creatinine [Mass/Vol] 0.68 mg/dL Normal 0.50-1.05 [facility] Comment on above: Performed By: #### 2 4323-8 #### MIGUEL GUALLPA ([id number]) [facility] ([facility]) [address] [place] [address] 48780 GFR/1.73 sq M.predicted MDRD (S/P/Bld) [Vol rate/Area] mL/min/{1.73_m2} Normal >60 [facility] Comment on above: Result Comment: Calc ulations of estimated GFR are performed using the 2020 CKD-EPI Study Refit equation without the race variable for the IDMS-Traceable creatinine methods. https://jasn.asnjournals.org/content/early//ASN.34074 54763 Performed By: #### 2 4323-8 #### MIGUEL GUALLPA ([id number]) [facility] ([facility]) [address] [place] [address] 39768 Glucose [Mass/Vol] 99 mg/dL Normal 74-99 [facility] Comment on above: Performed By: #### 2 4323-8 #### MIGUEL GUALLPA ([id number]) [facility] ([facility]) [address] [place] [address] 38325 Potassium [Moles/Vol] 3.9 mmol/L Normal 3.5-5.3 [facility] Comment on above: Performed By: #### 2 4323-8 #### MIGUEL GUALLPA ([id number]) [facility] ([facility]) [address] [place] [address] 62318 Protein [Mass/Vol] 7.0 g/dL Normal 6.4-8.2 [facility] Comment on above: Performed By: #### 2 4323-8 #### MIGUEL GUALLPA ([id number]) [facility] ([facility]) [facility] [place] [address] Sodium [Moles/Vol] 134 mmol/L Low 136-145 [facility] Comment on above: Performed By: #### 2 4323-8 #### MIGUEL GUALLPA ([id number]) [facility] ([facility]) [address] [place] [address] 03669 Urea nitrogen [Mass/Vol] 13 mg/dL Normal 6-23 [facility] Comment on above: Performed By: #### 2 4323-8 #### MIGUEL GUALLPA ([id number]) [facility] ([facility]) [address] [place] [address] 12685 Ferritinon 07-25-2024 Ferritin [Mass/Vol] 45 ng/mL Normal 8-150 [facility] Comment on above: Performed By: #### 2 276-4 #### MIGUEL GUALLAP ([id number]) [facility] ([facility]) [address] [place] [address] 66368 HbA1c (Bld) [Mass fraction]o n 07-25-2024 Average glucose Estimated from glycated hemoglobin (Bld) [Mass/Vol] 100 mg/dL Normal Not Established [facility] Comment on above: Order Comment: Diagn osis of Dluixpyd-WcdnkpXcd-Jgpfkrsx: < or = 5.6%Increased risk for developing diabetes: 5.7-6.4%Diagnostic of diabetes: > or = 6.5% Performed By: #### 2 276-4 #### MIGUEL GUALLPA ([id number]) [facility] ([facility]) [address] [place] [address] 02267 Hemoglobin A1c/Hemoglobin.to shaniqua 07-25-2024 HbA1c (Bld) [Mass fraction] 5.1 % Normal See comment [facility] Comment on above: Order Comment: Diagn osis of Pknwieln-ChqklkHgl-Vnilaxxx: < or = 5.6%Increased risk for developing diabetes: 5.7-6.4%Diagnostic of diabetes: > or = 6.5% Performed By: #### 2 276-4 #### MIGUEL GUALLPA ([id number]) [facility] ([facility]) [address] [place] [address] 84640 Iron and Iron binding capaci ty panelon 07-25-2024 Iron [Mass/Vol] 83 ug/dL Normal 35-150 [facility] Comment on above: Performed By: #### 5 0190-8 #### MIGUEL GUALLPA ([id number]) [facility] ([facility]) [address] [place] [address] 64745 Iron binding capacity [Mass/Vol] 425 ug/dL Normal 240-445 [facility] Comment on above: Performed By: #### 5 0190-8 #### MIGUEL GUALLPA ([id number]) [facility] ([facility]) [address] [place] [address] 23256 Iron binding capacity.unsaturated [Mass/Vol] 342 ug/dL Normal 110-370 [facility] Comment on above: Performed By: #### 5 0190-8 #### MIGUEL GUALLPA ([id number]) [facility] ([facility]) [address] [place] [address] 90759 Iron saturation [Mass fraction] 20 % Low 25-45 [facility] Comment on above: Performed By: #### 5 0190-8 #### MIGUEL GUALLPA ([id number]) [facility] ([facility]) [address] [place] [address] 44412 Parathyrin.intacton 07-25-20 24 Parathyrin.intact [Mass/Vol] 33.3 pg/mL Normal 18.5-88.0 [facility] Comment on above: Performed By: #### 2 276-4 #### MIGUEL GUALLPA ([id number]) [facility] ([facility]) [address] [place] [address] 04834 TSH WITH REFLEX TO FREE T4 I F ABNORMALon 07-25-2024 TSH Qn 2.06 m[IU]/L Normal 0.44-3.98 [facility] Comment on above: Order Comment: TSH t esting is performed using different testing methodology at [facility] than at other [facility]. Direct result comparisons should only be made within the same method. Performed By: #### 2 276-4 #### MIGUEL GUALLPA ([id number]) [facility] ([facility]) [address] [place] [address] 31004 CBC W Auto Differential pane l (Bld)on 10-13-2023 Basophils (Bld) [#/Vol] 0.04 x10*3/uL Normal 0.00-0.10 [facility] Comment on above: Performed By: #### 5 7021-8 #### MIGUEL GUALLPA ([id number]) [facility] ([facility]) [address] [place] [address] 77406 Basophils/100 WBC (Bld) 0.5 % Normal 0.0-2.0 [facility] Comment on above: Performed By: #### 5 7021-8 #### MIGUEL GUALLPA ([id number]) [facility] ([facility]) [address] [place] [address] 85823 Eosinophils (Bld) [#/Vol] 0.29 x10*3/uL Normal 0.00-0.70 [facility] Comment on above: Performed By: #### 5 7021-8 #### MIGUEL GUALLPA ([id number]) [facility] ([facility]) [address] [place] [address] 39871 Eosinophils/100 WBC (Bld) 3.7 % Normal 0.0-6.0 [facility] Comment on above: Performed By: #### 5 7021-8 #### MIGUEL GUALLPA ([id number]) [facility] ([facility]) [address] [place] [address] 77125 Erythrocyte distribution width (RBC) [Ratio] 12.5 % Normal 11.5-14.5 [facility] Comment on above: Performed By: #### 5 7021-8 #### MIGUEL GUALLPA ([id number]) [facility] ([facility]) [address] [place] [address] 67654 Hematocrit (Bld) [Volume fraction] 40.7 % Normal 36.0-46.0 [facility] Comment on above: Performed By: #### 5 7021-8 #### MIGUEL GUALLPA ([id number]) [facility] ([facility]) [address] [place] [address] 18192 Hemoglobin (Bld) [Mass/Vol] 13.4 g/dL Normal 12.0-16.0 [facility] Comment on above: Performed By: #### 5 7021-8 #### MIGUEL GUALLPA ([id number]) [facility] ([facility]) [address] [place] [address] 89927 Immature granulocytes (Bld) [#/Vol] 0.02 x10*3/uL Normal 0.00-0.70 [facility] Comment on above: Performed By: #### 5 7021-8 #### MIGUEL GUALLPA ([id number]) [facility] ([facility]) [address] [place] [address] 96013 Immature granulocytes/100 WBC (Bld) 0.3 % Normal 0.0-0.9 [facility] Comment on above: Result Comment: Shelley ture Granulocyte Count (IG) includes promyelocytes, myelocytes and metamyelocytes but does not include bands. Percent differential counts (%) should be interpreted in the context of the absolute cell counts (cells/UL). Performed By: #### 5 7021-8 #### MIGUEL GUALLPA ([id number]) [facility] ([facility]) [address] [place] [address] 68950 Lymphocytes (Bld) [#/Vol] 1.36 x10*3/uL Normal 1.20-4.80 [facility] Comment on above: Performed By: #### 5 7021-8 #### MIGUEL GUALLPA ([id number]) [facility] ([facility]) [address] [place] [address] 53291 Lymphocytes/100 WBC (Bld) 17.5 % Normal 13.0-44.0 [facility] Comment on above: Performed By: #### 5 7021-8 #### MIGUEL GUALLPA ([id number]) [facility] ([facility]) [address] [place] [address] 98509 MCH (RBC) [Entitic mass] 30.0 pg Normal 26.0-34.0 [facility] Comment on above: Performed By: #### 5 7021-8 #### MIGUEL GUALLPA ([id number]) [facility] ([facility]) [address] [place] [address] 74186 MCHC (RBC) [Mass/Vol] 32.9 g/dL Normal 32.0-36.0 [facility] Comment on above: Performed By: #### 5 7021-8 #### MIGUEL GUALLPA ([id number]) [facility] ([facility]) [address] [place] [address] 67758 MCV (RBC) [Entitic vol] 91 fL Normal 80-100 [facility] Comment on above: Performed By: #### 5 7021-8 #### MIGUEL GUALLPA ([id number]) [facility] ([facility]) [address] [place] [address] 69485 Monocytes (Bld) [#/Vol] 0.80 x10*3/uL Normal 0.10-1.00 [facility] Comment on above: Performed By: #### 5 7021-8 #### MIGUEL GUALLPA ([id number]) [facility] ([facility]) [address] [place] [address] 08160 Monocytes/100 WBC (Bld) 10.3 % Normal 2.0-10.0 [facility] Comment on above: Performed By: #### 5 7021-8 #### MIGUEL GUALLPA ([id number]) [facility] ([facility]) [address] [place] [address] 27092 Neutrophils (Bld) [#/Vol] 5.28 x10*3/uL Normal 1.20-7.70 [facility] Comment on above: Result Comment: Perc ent differential counts (%) should be interpreted in the context of the absolute cell counts (cells/uL). Performed By: #### 5 7021-8 #### MIGUEL GUALLPA ([id number]) [facility] ([facility]) [address] [place] [address] 89800 Neutrophils/100 WBC (Bld) 67.7 % Normal 40.0-80.0 [facility] Comment on above: Performed By: #### 5 7021-8 #### MIGUEL GUALLPA ([id number]) [facility] ([facility]) [address] [place] [address] 63548 Nucleated RBC/100 WBC (Bld) [Ratio] 0.0 /100 WBCs Normal 0.0-0.0 [facility] Comment on above: Performed By: #### 5 7021-8 #### MIGUEL GUALLPA ([id number]) [facility] ([facility]) [address] [place] [address] 43715 Platelets (Bld) [#/Vol] 266 x10*3/uL Normal 150-450 [facility] Comment on above: Performed By: #### 5 7021-8 #### MIGUEL GUALLPA ([id number]) [facility] ([facility]) [address] [place] [address] 31046 RBC (Bld) [#/Vol] 4.46 x10*6/uL Normal 4.00-5.20 [facility] Comment on above: Performed By: #### 5 7021-8 #### MIGUEL GUALLPA ([id number]) [facility] ([facility]) [address] [place] [address] 84855 WBC (Bld) [#/Vol] 7.8 x10*3/uL Normal 4.4-11.3 [facility] Comment on above: Performed By: #### 5 7021-8 #### MIGUEL GUALLPA ([id number]) [facility] ([facility]) [address] [place] [address] 61175 Calcidiolon 10-13-2023 25-hydroxyvitamin D3 [Mass/Vol] 28 ng/mL Low 30-100 [facility] Comment on above: Order Comment: Defic iency: < 20 ng/ml Insufficiency: 20-29 ng/ml Sufficiency: 30-100 ng/ml This assay accurately quantifies the sum of Vitamin D3, 25-Hydroxy and Vitamin D2,25-Hydroxy. Performed By: #### 1 989-3 #### MIGUEL GUALLPA ([id number]) [facility] ([facility]) [address] [place] [address] 72659 Ferritinon 10-13-2023 Ferritin [Mass/Vol] 59 ng/mL Normal 8-150 [facility] Comment on above: Performed By: #### 2 276-4 #### MIGUEL GUALLPA ([id number]) [facility] ([facility]) [address] [place] [address] 84138 Iron and Iron binding capaci ty panelon 10-13-2023 Iron [Mass/Vol] 69 ug/dL Normal 35-150 [facility] Comment on above: Performed By: #### 5 0190-8 #### MIGUEL GUALLPA ([id number]) [facility] ([facility]) [address] [place] [address] 79016 Iron binding capacity [Mass/Vol] 399 ug/dL Normal 240-445 [facility] Comment on above: Performed By: #### 5 0190-8 #### MIGUEL GUALLPA ([id number]) [facility] ([facility]) [address] [place] [address] 65629 Iron binding capacity.unsaturated [Mass/Vol] 330 ug/dL Normal 110-370 [facility] Comment on above: Performed By: #### 5 0190-8 #### MIGUEL GUALLPA ([id number]) [facility] ([facility]) [address] [place] [address] 55440 Iron saturation [Mass fraction] 17 % Low 25-45 [facility] Comment on above: Performed By: #### 5 0190-8 #### MIGUEL GUALLPA ([id number]) [facility] ([facility]) [address] [place] [address] 57202 Parathyrin.intacton 10-13-19 24 Parathyrin.intact [Mass/Vol] 48.1 pg/mL Normal 18.5-88.0 [facility] Comment on above: Performed By: #### 2 731-8 #### JONNATHAN Schwartz ([id number]) [facility] ([facility]) [id number] [place] [address] 44214 CBC AND DIFFERENTIALon 11-30 Basophils (Bld) [#/Vol] 0.00 10*3/uL Normal 0.00 - 0.10 [facility] Comment on above: Performed By: #### C BCDF #### [address] [address]395 Basophils/100 WBC (Bld) 0.7 % Normal 0.0 - 2.0 [facility] Comment on above: Performed By: #### C BCDF #### [address] 85173 Eosinophils (Bld) [#/Vol] 0.10 10*3/uL Normal 0.00 - 0.70 [facility] Comment on above: Performed By: #### C BCDF #### [address] 02602 Eosinophils/100 WBC (Bld) 1.4 % Normal 0.0 - 6.0 [facility] Comment on above: Performed By: #### C BCDF #### [address] 66494 Erythrocyte distribution width (RBC) [Ratio] 12.8 % Normal 11.5 - 14.5 [facility] Comment on above: Performed By: #### C BCDF #### [address] [address]315 Hematocrit (Bld) [Volume fraction] 38.5 % Normal 36.0 - 46.0 [facility] Comment on above: Performed By: #### C BCDF #### [address] 83271 Hemoglobin (Bld) [Mass/Vol] 13.5 g/dL Normal 12.0 - 16.0 [facility] Comment on above: Performed By: #### C BCDF #### [address] [address] Lymphocytes (Bld) [#/Vol] 2.30 10*3/uL Normal 1.20 - 4.80 [facility] Comment on above: Performed By: #### C BCDF #### [address] [address] Lymphocytes/100 WBC (Bld) 40.0 % Normal 13.0 - 44.0 [facility] Comment on above: Performed By: #### C BCDF #### [address] [address] MCHC (RBC) [Mass/Vol] 35.0 g/dL Normal 32.0 - 36.0 [facility] Comment on above: Performed By: #### C BCDF #### [address] [address] MCV (RBC) [Entitic vol] 88 fL Normal 80 - 100 [facility] Comment on above: Performed By: #### C BCDF #### [address] [address] Monocytes (Bld) [#/Vol] 0.30 10*3/uL Normal 0.10 - 1.00 [facility] Comment on above: Performed By: #### C BCDF #### [address] [address] Monocytes/100 WBC (Bld) 5.8 % Normal 2.0 - 10.0 [facility] Comment on above: Performed By: #### C BCDF #### [address] [address] Neutrophils (Bld) [#/Vol] 3.10 10*3/uL Normal 1.20 - 7.70 [facility] Comment on above: Result Comment: Perc ent differential counts (%) should be interpreted in the context of the absolute cell counts (cells/L). Performed By: #### C BCDF #### [address] [address] Neutrophils/100 WBC (Bld) 52.1 % Normal 40.0 - 80.0 [facility] Comment on above: Performed By: #### C BCDF #### [address] [address] NUCLEATED RBC 0.1 /100 WBC Normal [facility] Comment on above: Performed By: #### C BCDF #### [address] [address] Platelets (Bld) [#/Vol] 338 10*3/uL Normal 150 - 450 [facility] Comment on above: Performed By: #### C BCDF #### [address] [address] RBC 4.38 x10E12/L Normal 4.00 - 5.20 [facility] Comment on above: Performed By: #### C BCDF #### [address] [address] WBC (Bld) [#/Vol] 5.9 10*3/uL Normal 4.4 - 11.3 [facility] Comment on above: Performed By: #### C BCDF #### [place] [id number] COMPREHENSIVE PANELon 2021 Albumin [Mass/Vol] 5.0 g/dL Normal 3.4 - 5.0 [facility] Comment on above: Performed By: #### C MP #### [address] [address] ALP [Catalytic activity/Vol] 53 U/L Normal 33 - 110 [facility] Comment on above: Performed By: #### C MP #### [place] [id number] ALT [Catalytic activity/Vol] 11 U/L Normal 7 - 45 [facility] Comment on above: Result Comment: Erlinda ents treated with Sulfasalazine may generate falsely decreased results for ALT. Performed By: #### C MP #### [address] [address] Anion gap [Moles/Vol] 13 mmol/L Normal 10 - 20 [facility] Comment on above: Performed By: #### C MP #### [address] [address] AST [Catalytic activity/Vol] 15 U/L Normal 9 - 39 [facility] Comment on above: Performed By: #### C MP #### [address] [address] Bilirubin [Mass/Vol] 0.7 mg/dL Normal 0.0 - 1.2 [facility] Comment on above: Performed By: #### C MP #### [address] [address] Calcium [Mass/Vol] 9.4 mg/dL Normal 8.6 - 10.3 [facility] Comment on above: Performed By: #### C MP #### [address] [address] Chloride [Moles/Vol] 103 mmol/L Normal 98 - 107 [facility] Comment on above: Performed By: #### C MP #### [address] [address] Creatinine [Mass/Vol] 0.59 mg/dL Normal 0.50 - 1.05 [facility] Comment on above: Performed By: #### C MP #### [address] [address] eGFR FEMALE >90 Normal >90 [facility] Comment on above: Result Comment: CALC ULATIONS OF ESTIMATED GFR ARE PERFORMED USING THE 2020 CKD-EPI STUDY REFIT EQUATION WITHOUT THE RACE VARIABLE FOR THE IDMS-TRACEABLE CREATININE METHODS. https://jasn.asnjournals.org/content/early/ASN.17698 [address] Performed By: #### C MP #### [address] [address] Glucose [Mass/Vol] 101 mg/dL High 74 - 99 [facility] Comment on above: Performed By: #### C MP #### [address] [address] HCO3 (Bld) [Moles/Vol] 24 mmol/L Normal 21 - 32 [facility] Comment on above: Performed By: #### C MP #### [address] [address] Potassium [Moles/Vol] 3.3 mmol/L Low 3.5 - 5.3 [facility] Comment on above: Performed By: #### C MP #### [address] [address] Protein [Mass/Vol] 8.2 g/dL Normal 6.4 - 8.2 [facility] Comment on above: Performed By: #### C MP #### [address] [address] Sodium [Moles/Vol] 137 mmol/L Normal 136 - 145 [facility] Comment on above: Performed By: #### C MP #### [place] [address] [place] [address] Urea nitrogen [Mass/Vol] 10 mg/dL Normal 6 - [facility] Comment on above: Performed By: #### C MP #### [place] [address] [place] [address] CT ABDOMEN AND PELVIS W IV C ONTRASTon 11-30-2021 CT ABDOMEN AND PELVIS W IV CONTRAST Patient Name: MADDIE NELSON STUDY: CT ABDOMEN AND PELVIS W IV CONTRAST; 11/30/2021 4:17 pm INDICATION: R lower abd pain . COMPARISON: None. ACCESSION NUMBER(S): [id number] ORDERING CLINICIAN: VERONA AVILES TECHNIQUE: CT of [...] Electronically signed by: STACI MARIE MD Normal [facility] HCG,URINEon 11-30-2021 Beta HCG ( test) Ql (U) Negative Normal Negative [facility] Comment on above: Performed By: #### H CGU #### [address] [address] LIPASEon 11-30-2021 Lipase [Catalytic activity/Vol] 14 U/L Normal 9 - 82 [facility] Comment on above: Result Comment: Kenisha puncture immediately after or during the administration of Metamizole may lead to falsely low results. Testing should be performed immediately prior to Metamizole dosing. V-tvyvfj-s-benzoquinone imine (metabolite of Acetaminophen) will generate erroneously low results in samples for patients that have taken toxic doses of acetaminophen. Performed By: #### L IPAS #### [address] [address] Provider Note - ED v3on 11-09 Provider [...] tenderness. Mild Rovsing. Negative heel strike and health claims examiner., non-distended, no masses : MSK: No gross deformities appreciated Back: Non tender, no pain with ROM Skin: Warm, dry. No rashes Neuro: Alert and oriented x4, GCS 15 , assembler finger buffs II-XII grossly intact. Sensation and motor function of extremities grossly intact. Psych: Appropriate mood and affect. I have reviewed and confirmed nurses/medics notes for patient past, social and family history. Portions of this note were dictated by speech recognition. An attempt at proof reading was made to minimize errors. Minor errors in database engineer may be present. HISTORY OF PRESENTING ILLNESS [...] Reference Range: STRAW,YELLOW Appearance, Urine HAZY Specific [place], Urine 1.005 pH, Urine 7.0 Protein, Urine [...] [Nov 30 2021 4:35PM] MDM MDM/ED COURSE: 1650-final results reviewed with patient who rest in bed in no acute distress. Work-up is unremarkable as noted below. Patient comfortable discharge home at this time. Your lab work, urinalysis, and CAT scan today did not show any concerning (more content not included)... Normal [facility] Risk Screen - Adult Emergenc yon [...] instruction; written material Cultural Considerationsnone Developmental Considerationsnone Jehovah'S Witness Considerationsnone Other Learnersfriend Learning Assessment (Other Learner): Learning Assessment (Other Learner): Other learner availableyes... Learnerfriend Factors Influencing Readiness to LearnN/A Factors that Impact Ability to Learnnone Devices/Methods Used to Communicatenone Learning Preferencesverbal instruction, written material Cultural Considerationsnone Developmental Considerationsnone Jehovah'S Witness Considerationsnone Pressure Injury/TB/Substance: Pressure Injury: Do you have a coughno Smoking Statusnever smoker Alcohol Useoccasionally Drug Usedenies Admission Risk Screen: Significant IndicatorsComplete CAGE: CAGE: Is this an injured patient at a Trauma Center ([facility]/[place]/[facility]/[place]): no Electronic Signatures: Joya Hall (KIAN) (Signed 30-Nov-2021 14:57) Authored: Preferred Language, Advanced Directives, Family Violence Adult, Learning Assessment (Patient), Learning Assessment (Other Learner), Pressure Injury/TB/Substance, Pressure Injury, CAGE Last Updated: 30-Nov-2021 14:57 by Joya Hall (RN) [facility] Triage - EDon 11-30-2021 Triage - ED Quick Triage: Are You no Have You Given In The Last 6 Weeksno Are You Currently Breastfeedingno Chart Review: PRIMARY ASSESSMENT ABCD Normal Findings: airway open and patent, circulation normal and alert and oriented ARRIVAL INFORMATION Means of Arrival: Ambulatory Mode of Arrival: private vehicle Arrival From: home Accompanied By: self Language: Spoken Language Preferred: Malay Reading Language Preferred: Malay Present on Arrival: Device Present on Arrival [...] obeys commands Best Verbal Response: (V5) oriented Mather Score: 15 Allergies: no Last menstrual period: [...] 30-Nov-2021 14:55 by Joya Hall (RN) Normal [facility] UA MICROSCOPICon 11-30-2021 BACTERIA 1+ /HPF Abnormal [facility] Comment on above: Performed By: #### U AMIC #### [address] [address] Mucus Ql (Urine sed) 1+ /LPF Normal [facility] Comment on above: Performed By: #### U AMIC #### [address] [address] RBC (U) [#/Vol] /uL Normal 0-5 [facility] Comment on above: Performed By: #### U AMIC #### [address] [address] SQUAMOUS EPITH. CELLS 10 /HPF Normal [facility] Comment on above: Performed By: #### U AMIC #### [address] [address] WBC 1 /HPF Normal 0-5 [facility] Comment on above: Performed By: #### U AMIC #### [address] [address] URINALYSISon 11-30-2021 Appearance (U) HAZY Normal CLEAR [facility] Comment on above: Performed By: #### U A #### [address] [address] Bilirubin Ql (U) Negative Normal NEGATIVE [facility] Comment on above: Performed By: #### U A #### [address] [address] Color (U) Straw Normal STRAW,YELLOW [facility] Comment on above: Performed By: #### U A #### [address] [address] Glucose Ql (U) Negative Normal NEGATIVE [facility] Comment on above: Performed By: #### U A #### [address] [address] Hemoglobin Ql (U) LARGE(3+) Abnormal NEGATIVE [facility] Comment on above: Performed By: #### U A #### [address] [address] Ketones Ql (U) Negative Normal NEGATIVE [facility] Comment on above: Performed By: #### U A #### [address] [address] Leukocyte esterase Test strip Ql (U) Negative Normal NEGATIVE [facility] Comment on above: Performed By: #### U A #### [address] [address] Nitrite Ql (U) Negative Normal NEGATIVE [facility] Comment on above: Performed By: #### U A #### [address] [address] pH (U) 7.0 [pH] Normal 5.0 - 8.0 [facility] Comment on above: Performed By: #### U A #### [address] [address] Protein Ql (U) Negative Normal NEGATIVE [facility] Comment on above: Performed By: #### U A #### [address] [address] Specific gravity (U) [Rel density] 1.005 Normal 1.005 - 1.035 [facility] Comment on above: Performed By: #### U A #### [address] [address] Urobilinogen (U) [Mass/Vol] mg/dL Normal 0.0 - 1.9 [facility] Comment on above: Performed By: #### U A #### [address] [address] Vital Signs Date Time Vital Sign Value Performing Clinician Facility 03-25-2025 15:44-0400 Body height 157.48 cm Minerva LUBIN Work Phone: [facility] 03-25-2025 15:44-0400 Body mass index (BMI) [Ratio] 37.1 kg/m2 Minerva LUBIN Work Phone: [facility] 03-25-2025 15:44-0400 Body weight 92.07 kg Minerva Flower TRUCK RENTAL MANAGER-C Work Phone: [facility] 03-25-2025 15:44-0400 Diastolic blood pressure 79 mm[Hg] Minerva Flower TRUCK RENTAL MANAGER-C Work Phone: [facility] 03-25-2025 15:44-0400 Systolic blood pressure 114 mm[Hg] Minerva Flower TRUCK RENTAL MANAGER-C Work Phone: [facility] 03-19-2025 14:19-0400 Body height 157.48 cm Minerva Flower TRUCK RENTAL MANAGER-C Work Phone: [facility] 03-19-2025 14:19-0400 Body mass index (BMI) [Ratio] 36.7 kg/m2 Minerva Flower TRUCK RENTAL MANAGER-C Work Phone: [facility] 03-19-2025 14:19-0400 Body weight 91.17 kg Minerva Flower TRUCK RENTAL MANAGER-C Work Phone: [facility] 03-19-2025 14:19-0400 Diastolic blood pressure 79 mm[Hg] Minerva Flower TRUCK RENTAL MANAGER-C Work Phone: [facility] 03-19-2025 14:19-0400 Systolic blood pressure 117 mm[Hg] Minerva Flower TRUCK RENTAL MANAGER-C Work Phone: [facility] 03-11-2025 15:51-0400 Body height 157.48 cm Minerva Flower TRUCK RENTAL MANAGER-C Work Phone: [facility] 03-11-2025 15:46-0400 Body mass index (BMI) [Ratio] 36.2 kg/m2 Minerva Flower TRUCK RENTAL MANAGER-C Work Phone: [facility] 03-11-2025 15:46-0400 Body weight 89.92 kg Minerva Flower TRUCK RENTAL MANAGER-C Work Phone: [facility] 03-11-2025 15:46-0400 Diastolic blood pressure 85 mm[Hg] Minerva Flower TRUCK RENTAL MANAGER-C Work Phone: [facility] 03-11-2025 15:46-0400 Systolic blood pressure 123 mm[Hg] Minerva Flower TRUCK RENTAL MANAGER-C Work Phone: [facility] 03-06-2025 15:46-0400 Body height 157.48 cm Minerva Flower TRUCK RENTAL MANAGER-C Work Phone: [facility] 03-06-2025 15:46-0400 Body mass index (BMI) [Ratio] 36.6 kg/m2 Minerva Flower TRUCK RENTAL MANAGER-C Work Phone: [facility] 03-06-2025 15:46-0400 Body weight 90.83 kg Minerva Flower TRUCK RENTAL MANAGER-C Work Phone: [facility] 03-06-2025 15:46-0400 Diastolic blood pressure 81 mm[Hg] Minerva Flower TRUCK RENTAL MANAGER-C Work Phone: [facility] 03-06-2025 15:46-0400 Systolic blood pressure 122 mm[Hg] Minerva Flower TRUCK RENTAL MANAGER-C Work Phone: [facility] 02-26-2025 16:37-0400 Body temperature 97.8 [degF] Minerva Flower TRUCK RENTAL MANAGER-C Work Phone: [facility] 02-26-2025 16:37-0400 Diastolic blood pressure 74 mm[Hg] Minerva Flower TRUCK RENTAL MANAGER-C Work Phone: [facility] 02-26-2025 16:37-0400 Heart rate 95 /min Minerva Torres TRUCK RENTAL MANAGER-C Work Phone: [facility] 02-26-2025 16:37-0400 Respiratory rate 16 /min Minerva Flower TRUCK RENTAL MANAGER-C Work Phone: [facility] 02-26-2025 16:37-0400 Systolic blood pressure 112 mm[Hg] Minerva Flower TRUCK RENTAL MANAGER-C Work Phone: [facility] 02-26-2025 16:25-0400 Body height 157.48 cm Minerva Flower TRUCK RENTAL MANAGER-C Work Phone: [facility] 02-26-2025 16:25-0400 Body mass index (BMI) [Ratio] 35.5 kg/m2 Minerva Flower TRUCK RENTAL MANAGER-C Work Phone: [facility] 02-26-2025 16:25-0400 Body weight 88.1 kg Minerva Flower TRUCK RENTAL MANAGER-C Work Phone: [facility] 02-20-2025 09:11-0400 Body height 157.48 cm Minerva Flower TRUCK RENTAL MANAGER-C Work Phone: [facility] 02-20-2025 09:11-0400 Body mass index (BMI) [Ratio] 35.7 kg/m2 Minerva Flower TRUCK RENTAL MANAGER-C Work Phone: [facility] 02-20-2025 09:11-0400 Body weight 88.7 kg Minerva Flower TRUCK RENTAL MANAGER-C Work Phone: [facility] 02-19-2025 07:41-0400 Diastolic blood pressure 72 mm[Hg] Minerva Flower TRUCK RENTAL MANAGER-C Work Phone: [facility] 02-19-2025 07:41-0400 Heart rate 87 /min Minerva Flower TRUCK RENTAL MANAGER-C Work Phone: [facility] 02-19-2025 07:41-0400 Systolic blood pressure 121 mm[Hg] Minerva Flower TRUCK RENTAL MANAGER-C Work Phone: [facility] 02-19-2025 07:36-0400 Body temperature 97.9 [degF] Minerva Flower TRUCK RENTAL MANAGER-C Work Phone: [facility] 02-19-2025 07:36-0400 Respiratory rate 16 /min Minerva Flower TRUCK RENTAL MANAGER-C Work Phone: [facility] 02-19-2025 07:27-0400 Body height 157.48 cm Minerva Flower TRUCK RENTAL MANAGER-C Work Phone: [facility] 02-19-2025 07:27-0400 Body mass index (BMI) [Ratio] 35.6 kg/m2 Minerva Flower TRUCK RENTAL MANAGER-C Work Phone: [facility] 02-19-2025 07:27-0400 Body weight 88.5 kg Minerva Flower TRUCK RENTAL MANAGER-C Work Phone: [facility] 02-18-2025 14:09-0400 Body height 157.48 cm Minerva Flower TRUCK RENTAL MANAGER-C Work Phone: [facility] 02-18-2025 14:08-0400 Body mass index (BMI) [Ratio] 35.8 kg/m2 Minerva Flower TRUCK RENTAL MANAGER-C Work Phone: [facility] 02-18-2025 14:08-0400 Body weight 88.9 kg Minerva Flower TRUCK RENTAL MANAGER-C Work Phone: [facility] 02-18-2025 14:08-0400 Diastolic blood pressure 76 mm[Hg] Minerva Flower TRUCK RENTAL MANAGER-C Work Phone: [facility] 02-18-2025 14:08-0400 Systolic blood pressure 113 mm[Hg] Minerva Flower TRUCK RENTAL MANAGER-C Work Phone: [facility] 02-03-2025 13:42-0400 Body height 157.48 cm Minerva Flower TRUCK RENTAL MANAGER-C Work Phone: [facility] 02-03-2025 13:42-0400 Body mass index (BMI) [Ratio] 35.4 kg/m2 Minerva Flower TRUCK RENTAL MANAGER-C Work Phone: [facility] 02-03-2025 13:42-0400 Body weight 87.71 kg Minerva Flower TRUCK RENTAL MANAGER-C Work Phone: [facility] 02-03-2025 13:42-0400 Diastolic blood pressure 80 mm[Hg] Minerva Flower TRUCK RENTAL MANAGER-C Work Phone: [facility] 02-03-2025 13:42-0400 Systolic blood pressure 108 mm[Hg] Minerva Flower TRUCK RENTAL MANAGER-C Work Phone: [facility] 01-20-2025 14:36-0400 Body height 157.48 cm Minerva Flower TRUCK RENTAL MANAGER-C Work Phone: [facility] 01-20-2025 14:36-0400 Body mass index (BMI) [Ratio] 34.7 kg/m2 Minerva Flower TRUCK RENTAL MANAGER-C Work Phone: [facility] 01-20-2025 14:36-0400 Body weight 86.18 kg Minerva Flower TRUCK RENTAL MANAGER-C Work Phone: [facility] 01-20-2025 14:36-0400 Diastolic blood pressure 75 mm[Hg] Minerva Flower TRUCK RENTAL MANAGER-C Work Phone: [facility] 01-20-2025 14:36-0400 Systolic blood pressure 115 mm[Hg] Minerva Flower TRUCK RENTAL MANAGER-C Work Phone: [facility] 01-06-2025 12:59-0400 Body height 157.48 cm Minerva Flower TRUCK RENTAL MANAGER-C Work Phone: [facility] 01-06-2025 12:59-0400 Body mass index (BMI) [Ratio] 34.4 kg/m2 Minerva Flower TRUCK RENTAL MANAGER-C Work Phone: [facility] 01-06-2025 12:59-0400 Body weight 85.44 kg Minerva Flower TRUCK RENTAL MANAGER-C Work Phone: [facility] 01-06-2025 12:59-0400 Diastolic blood pressure 86 mm[Hg] Minerva Flower TRUCK RENTAL MANAGER-C Work Phone: [facility] 01-06-2025 12:59-0400 Systolic blood pressure 131 mm[Hg] Minerva Flower TRUCK RENTAL MANAGER-C Work Phone: [facility] 12-18-2024 14:03-0400 Body mass index (BMI) [Ratio] 33.1 kg/m2 Minerva Flower TRUCK RENTAL MANAGER-C Work Phone: [facility] 12-18-2024 14:03-0400 Body weight 82.27 kg Minerva Flower TRUCK RENTAL MANAGER-C Work Phone: [facility] 12-18-2024 14:03-0400 Diastolic blood pressure 77 mm[Hg] Minerva Flower TRUCK RENTAL MANAGER-C Work Phone: [facility] 12-18-2024 14:03-0400 Systolic blood pressure 112 mm[Hg] Minerva Flower TRUCK RENTAL MANAGER-C Work Phone: [facility] 11-18-2024 15:40-0400 Body height 157.48 cm Minerva Flower TRUCK RENTAL MANAGER-C Work Phone: [facility] 11-18-2024 15:40-0400 Body mass index (BMI) [Ratio] 32.3 kg/m2 Minerva Flower TRUCK RENTAL MANAGER-C Work Phone: [facility] 11-18-2024 15:40-0400 Body weight 80.34 kg Minerva Flower TRUCK RENTAL MANAGER-C Work Phone: [facility] 11-18-2024 15:40-0400 Diastolic blood pressure 72 mm[Hg] Minerva Flower TRUCK RENTAL MANAGER-C Work Phone: [facility] 11-18-2024 15:40-0400 Systolic blood pressure 114 mm[Hg] Minerva Flower TRUCK RENTAL MANAGER-C Work Phone: [facility] 10-22-2024 14:18-0500 Body mass index (BMI) [Ratio] 31.5 kg/m2 Minerva Flower TRUCK RENTAL MANAGER-C Work Phone: [facility] 10-22-2024 14:18-0500 Body weight 78.13 kg Minerva Flower TRUCK RENTAL MANAGER-C Work Phone: [facility] 10-22-2024 14:18-0500 Diastolic blood pressure 74 mm[Hg] Minerva Flower TRUCK RENTAL MANAGER-C Work Phone: [facility] 10-22-2024 14:18-0500 Systolic blood pressure 118 mm[Hg] Minerva Flower TRUCK RENTAL MANAGER-C Work Phone: [facility] 09-23-2024 13:32-0500 Body mass index (BMI) [Ratio] 30.5 kg/m2 Minerva Flower TRUCK RENTAL MANAGER-C Work Phone: [facility] 09-23-2024 13:32-0500 Body weight 75.74 kg Minerva Flower TRUCK RENTAL MANAGER-C Work Phone: [facility] 09-23-2024 13:32-0500 Diastolic blood pressure 81 mm[Hg] Minerva Flower TRUCK RENTAL MANAGER-C Work Phone: [facility] 09-23-2024 13:32-0500 Systolic blood pressure 119 mm[Hg] Minerva Flower TRUCK RENTAL MANAGER-C Work Phone: [facility] 08-22-2024 14:24-0500 Body mass index (BMI) [Ratio] 21.9 kg/m2 Minerva Flower TRUCK RENTAL MANAGER-C Work Phone: [facility] 08-22-2024 14:24-0500 Body weight 54.43 kg Minerva Flower TRUCK RENTAL MANAGER-C Work Phone: [facility] 08-22-2024 14:24-0500 Diastolic blood pressure 86 mm[Hg] Minerva Flower TRUCK RENTAL MANAGER-C Work Phone: [facility] 08-22-2024 14:24-0500 Systolic blood pressure 120 mm[Hg] Minerva Flower TRUCK RENTAL MANAGER-C Work Phone: [facility] 08-13-2024 14:05-0500 Body mass index (BMI) [Ratio] 30.4 kg/m2 Minerva Flower TRUCK RENTAL MANAGER-C Work Phone: [facility] 08-13-2024 14:05-0500 Body weight 75.52 kg Minerva Flower TRUCK RENTAL MANAGER-C Work Phone: [facility] 08-13-2024 14:05-0500 Diastolic blood pressure 81 mm[Hg] Minerva Flower TRUCK RENTAL MANAGER-C Work Phone: [facility] 08-13-2024 14:05-0500 Systolic blood pressure 122 mm[Hg] Minerva Flower TRUCK RENTAL MANAGER-C Work Phone: [facility] 08-11-2024 11:46-0500 Body mass index (BMI) [Ratio] 30.4 kg/m2 Minerva Flower TRUCK RENTAL MANAGER-C Work Phone: [facility] 08-11-2024 11:46-0500 Body weight 75.46 kg Minerva Flower TRUCK RENTAL MANAGER-C Work Phone: [facility] 08-11-2024 11:46-0500 Diastolic blood pressure 84 mm[Hg] Minerva Flower TRUCK RENTAL MANAGER-C Work Phone: [facility] 08-11-2024 11:46-0500 Systolic blood pressure 128 mm[Hg] Minerva Flower TRUCK RENTAL MANAGER-C Work Phone: [facility] 07-29-2024 13:36-0500 Body height 157.5 cm Minerva Flower ENLISTED ADVISOR-STUDIO OPERATOR Work Phone: [facility] 07-29-2024 13:36-0500 Body mass index (BMI) [Ratio] 30.84 kg/m2 Minerva Torres ENLISTED ADVISOR-STUDIO OPERATOR Work Phone: [facility] 07-29-2024 13:36-0500 Body weight 76.48 kg Minerva Flower ENLISTED ADVISOR-STUDIO OPERATOR Work Phone: [facility] 07-25-2024 16:17-0500 Body height 157.5 cm Minerva Flower ENLISTED ADVISOR-STUDIO OPERATOR Work Phone: [facility] 07-25-2024 16:17-0500 Body mass index (BMI) [Ratio] 30.8 kg/m2 Minerva Flower ENLISTED ADVISOR-STUDIO OPERATOR Work Phone: [facility] 07-25-2024 16:17-0500 Body weight 76.39 kg Minerva Flower ENLISTED ADVISOR-STUDIO OPERATOR Work Phone: [facility] 07-25-2024 16:17-0500 Diastolic blood pressure 85 mm[Hg] Minerva Flower ENLISTED ADVISOR-STUDIO OPERATOR Work Phone: [facility] 07-25-2024 16:17-0500 Heart rate 78 /min Minerva Flower ENLISTED ADVISOR-STUDIO OPERATOR Work Phone: [facility] 07-25-2024 16:17-0500 Systolic blood pressure 122 mm[Hg] Minerva Flower ENLISTED ADVISOR-STUDIO OPERATOR Work Phone: [facility] 11-30-2021 18:42-0400 Diastolic blood pressure 83 mm[Hg] Text Entry [facility] 11-30-2021 18:42-0400 Heart rate 98 /min Text Entry [facility] 11-30-2021 18:42-0400 Respiratory rate 18 /min Text Entry [facility] 11-30-2021 18:42-0400 SaO2% (BldA) [Mass fraction] 100 % Text Entry [facility] 11-30-2021 18:42-0400 Systolic blood pressure 123 mm[Hg] Text Entry [facility] 11-30-2021 16:50-0400 Body height 154.9 cm Text Entry [facility] 11-30-2021 16:50-0400 Body temperature 97.52 [degF] Text Entry [facility] 11-30-2021 16:50-0400 Body weight 67.3 kg Text Entry [facility] Encounters Encounter Date Encounter Type Care Provider Facility Start: 03-25-2025 End: 03-25-[address] Radha Peters MD -[facility] Work Phone: Start: 03-25-2025 End: 03-25-2025 ambulatory Minerva Flower TRUCK RENTAL MANAGER-C Work Phone: -[facility] Start: 03-19-2025 End: 03-19-2025 ambulatory Minerva Flower TRUCK RENTAL MANAGER-C Work Phone: -Laboratory Specimen Start: 03-19-2025 End: 03-19-[address] María Elena Solomon DO -Laboratory Specimen Work Phone: Start: 03-19-2025 End: 03-19-[address] María Elena Solomon DO -[facility] Work Phone: Start: 03-19-2025 End: 03-19-2025 ambulatory Minerva Flower TRUCK RENTAL MANAGER-C Work Phone: -[facility] Start: 03-19-2025 End: 03-19-2025 ambulatory Minerva Flower Facility:[facility] Start: 03-11-2025 End: 03-11-[address] Radha Peters MD -[facility] Work Phone: Start: 03-11-2025 End: 03-11-2025 ambulatory Minerva Flower TRUCK RENTAL MANAGER-C Work Phone: [facility] Start: 03-11-2025 End: 03-11-2025 ambulatory Minerva Flower Facility:[facility] Start: 03-06-2025 End: 03-06-2025 Patient encounter procedure Amber Dyer [facility] Work Phone: Start: 03-06-2025 End: 03-06-2025 ambulatory Minerva Flower TRUCK RENTAL MANAGER-C Work Phone: -[facility] Start: 02-26-2025 ambulatory María Elena Cruzty:[facility] Start: 02-26-2025 Non-patient / Non-visit Dr. Kendall Solomon DO [facility] Start: 02-26-2025 End: 02-26-2025 ambulatory Minerva Flower TRUCK RENTAL MANAGER-C Work Phone: [facility] Work Phone: Start: 02-26-2025 End: 02-26-[address] María Elena Solomon DO [facility] Work Phone: Start: 02-21-2025 ambulatory Minerva Flower Facility:[facility] Start: 02-21-2025 Non-patient / Non-visit Amber acuna [facility] Start: 02-20-2025 End: 02-20-2025 Patient encounter procedure Amber Dyer [facility] Work Phone: Start: 02-20-2025 End: 02-20-2025 ambulatory Minerva Flower TRUCK RENTAL MANAGER-C Work Phone: [facility] Work Phone: Start: 02-19-2025 ambulatory Minerva Flower Facility:[facility] Start: 02-19-2025 Non-patient / Non-visit Elle Galvan ms [facility] Start: 02-19-2025 End: 02-19-2025 ambulatory Minerva D Flower TRUCK RENTAL MANAGER-C Work Phone: [facility] Work Phone: Start: 02-19-2025 End: 02-19-[address] María Elena Solomon DO -[facility] Work Phone: Start: 02-18-2025 End: 02-18-2025 ambulatory Minerva D Torres TRUCK RENTAL MANAGER-C Work Phone: [facility] Work Phone: Start: 02-18-2025 End: 02-18-[address] María Elena Solomon DO -Laboratory Specimen Work Phone: Start: 02-18-2025 End: 02-18-[address] María Elena Solmoon DO -[facility] Work Phone: Start: 02-18-2025 End: 02-18-2025 ambulatory Minerva D Torres TRUCK RENTAL MANAGER-C Work Phone: [facility] Work Phone: Start: 02-18-2025 End: 02-18-2025 ambulatory Minerva D Flower Facility:[facility] Start: 02-03-2025 End: 02-03-2025 Patient encounter procedure Chioma Springer NP-C -[facility] Work Phone: Start: 02-03-2025 End: 02-03-2025 ambulatory Minerva D Flower TRUCK RENTAL MANAGER-C Work Phone: [facility] Work Phone: Start: 02-03-2025 End: 02-03-2025 ambulatory Minerva D Flower Facility:[facility] Start: 01-20-2025 End: 01-20-2025 Patient encounter procedure Amber BONILLA -[facility] Work Phone: Start: 01-20-2025 End: 01-20-2025 ambulatory Minerva Flower TRUCK RENTAL MANAGER-C Work Phone: [facility] Work Phone: Start: 01-13-2025 End: 01-13-2025 ambulatory MD [facility] Start: 01-08-2025 End: 01-08-2025 ambulatory Minerva Flower TRUCK RENTAL MANAGER-C Work Phone: [facility] Work Phone: Start: 01-08-2025 End: 01-08-[address] María Elena Solomon DO -[facility] Work Phone: Start: 01-08-2025 End: 01-08-2025 ambulatory Minerva Flower Facility:[facility] Start: 01-06-2025 End: 01-06-2025 ambulatory Minerva Flower NP-C Work Phone: [facility] Work Phone: Start: 01-06-2025 End: 01-06-2025 Patient encounter procedure Elle Poe CNM -[facility] Work Phone: Start: 01-06-2025 End: 01-06-2025 ambulatory Minerva Flower Facility:[facility] Start: 12-18-2024 End: 12-18-[address] María Elena Solomon DO -[facility] Work Phone: Start: 12-18-2024 End: 12-18-2024 ambulatory Minerva Flower Facility:[facility] Start: 11-18-2024 End: 11-18-2024 Patient encounter procedure Chioma Springer NP-C -[facility] Work Phone: Start: 11-18-2024 End: 11-18-2024 ambulatory Minerva Flower Facility:[facility] Start: 11-10-2024 End: 11-10-2024 ambulatory Minerva Flower TRUCK RENTAL MANAGER-C Work Phone: [facility] Work Phone: Start: 11-10-2024 End: 11-10-[address] Radha Peters MD -[facility] Work Phone: Start: 11-10-2024 End: 11-10-2024 ambulatory Radha Peters Facility:[facility] Start: 10-22-2024 End: 10-22-2024 Patient encounter procedure Chioma Springer NP-C -Laboratory, Specimen Work Phone: Start: 10-22-2024 End: 10-22-2024 Patient encounter procedure Chioma Springer NP-C -[facility] Work Phone: Start: 10-22-2024 End: 10-22-2024 ambulatory [facility] [place] Facility:[facility] Start: 10-22-2024 End: 10-22-2024 ambulatory [facility] [place] Facility:[facility] Start: 09-23-2024 End: 09-23-[address] Radha Peters MD -[facility] Work Phone: Start: 09-23-2024 End: 09-23-2024 ambulatory Minerva Flower Facility:[facility] Start: 09-16-2024 End: 09-16-2024 ambulatory [facility] Start: 09-15-2024 End: 09-15-[address] Radha Peters MD -Lab, [facility] Start: 09-15-2024 End: 09-15-2024 ambulatory Minerva Flower Facility:[facility] Start: 08-22-2024 End: 08-22-[address] Radha Peters MD -Ultrasound, [facility] Work Phone: Start: 08-22-2024 End: 08-22-2024 Patient encounter procedure Elle Poe CNM -[facility] Work Phone: Start: 08-22-2024 End: 08-22-2024 ambulatory Minerva [place] Facility:[facility] Start: 08-22-2024 End: 08-22-2024 ambulatory Minerva Flower Facility:[facility] Start: 08-15-2024 Non-patient / Non-visit Faith herbert RN -[facility] Work Phone: Start: 08-15-2024 ambulatory Minerva Flower Facility:[facility] Start: 08-13-2024 End: 08-13-[address] Radha Peters MD -[facility] Work Phone: Start: 08-13-2024 End: 08-13-2024 ambulatory Minerva Flower Facility:[facility] Start: 08-11-2024 End: 08-11-[address] Radha Peters MD -Laboratory Work Phone: Start: 08-11-2024 End: 08-11-[address] Radha Peters MD -[facility] Work Phone: Start: 08-11-2024 End: 08-11-2024 ambulatory Minerva Flower Facility:[facility] Start: 08-11-2024 End: 08-11-2024 ambulatory Minerva Flower Facility:[facility] Start: 07-29-2024 End: 07-29-2024 ambulatory [facility] Start: 07-29-2024 End: 07-29-2024 Office outpatient visit 25 minutes Minerva Flower ENLISTED ADVISOR-STUDIO OPERATOR Work Phone: [facility] Comment on above: Leukocytosis, unspec ified type (Primary Dx); B12 deficiency; Vitamin D deficiency Start: 07-29-2024 End: 07-29-2024 ambulatory [facility] Start: 07-25-2024 End: 07-25-2024 Patient encounter status Minerva Flower ENLISTED ADVISOR-STUDIO OPERATOR Work Phone: [facility] Work Phone: Start: 07-25-2024 End: 07-25-2024 Periodic preventive med est patient 18-39 yrs Minerva Flower ENLISTED ADVISOR-STUDIO OPERATOR Work Phone: [facility] Comment on above: Wellness examination (Primary Dx); Vitamin D deficiency; Iron deficiency anemia, unspecified iron deficiency anemia type; Amenorrhea Start: 07-25-2024 End: 07-25-2024 ambulatory MINERVA Jarrett [facility] Start: 07-25-2024 End: 07-25-2024 Encounter for general adult medical examination without abnormal findings MINERVA Jarrett [facility] Start: 10-19-2023 End: 10-19-2023 ambulatory MINERVA Jarrett [facility] Ambulatory Start: 10-13-2023 End: 10-13-2023 ambulatory MINERVA Jarrett [facility] Start: 07-05-2023 End: 07-05-2023 Office outpatient visit 25 minutes Minerva Jarrett Flower ENLISTED ADVISOR-STUDIO OPERATOR Work Phone: [facility] Comment on above: Pharyngitis, unspeci fied etiology (Primary Dx) Start: 05-30-2023 Encounter for genera l adult medical examination without abnormal findings MINERVA Jarrett [facility] Start: 05-30-2023 Patient encounter status Minerva Garcialey ENLISTED ADVISOR-STUDIO OPERATOR Work Phone: [facility] Work Phone: Start: 11-30-2021 End: 11-30-2021 Emergency department patient visit Verona Aviles [facility] Emergency 14 Procedures Date Procedure Procedure Detail Performing Clinician Start: 03-11-2025 Beta-hemolytic Strep tococcus culture Minerva Flower TRUCK RENTAL MANAGER-C Work Phone: Start: 02-19-2025 Ultrasonography for antepartum monitoring of fetus Minerva Flower TRUCK RENTAL MANAGER-C Work Phone: Start: 02-18-2025 Gram stain microscopy A jeanine Flower TRUCK RENTAL MANAGER-C Work Phone: Start: 02-18-2025 Source specific culture Minerva Flower TRUCK RENTAL MANAGER-C Work Phone: Start: 02-18-2025 Urine culture Minerva hanna TRUCK RENTAL MANAGER-C Work Phone: Start: 01-08-2025 Ultrasound scan for growth Minerva Flower TRUCK RENTAL MANAGER-C Work Phone: Start: 01-06-2025 Serologic test for syphilis Minerva Flower TRUCK RENTAL MANAGER-C Work Phone: Start: 11-10-2024 Ultrasonography in f irst trimester Minerva Flower TRUCK RENTAL MANAGERJudsonC Work Phone: Start: 10-22-2024 End: 10-22-2024 Polymerase chain reaction analysis Minerva Flower TRUCK RENTAL MANAGERJudsonC Work Phone: Start: 08-22-2024 Transvaginal obstetr ic ultrasonography Minerva Flower TRUCK RENTAL MANAGER-C Work Phone: Start: 08-22-2024 Urine culture Minerva hanna TRUCK RENTAL MANAGER-C Work Phone: Start: 10-13-2023 CBC W Auto Different ial panel - Blood MINERVA FLOWER Start: 10-13-2023 Ferritin [Mass/volum e] in Serum or Plasma MINERVA FLOWER Start: 10-13-2023 IRON AND TIBC MINERVA Hanna Start: 10-13-2023 PTH, INTACT MINERVA FLOWER Start: 10-13-2023 VITAMIN D 25-HYDROXY,TOTAL MINERVA FLOWER Start: 05-23-2023 Lipid 1996 panel - S jamison or Plasma Minerva Flower ENLISTED ADVISOR-STUDIO OPERATOR Work Phone: Plan of Treatment Date Care Activity Detail Author Start: 2048 Zoster Vaccines (1 of 2) Zoste r Vaccines (1 of 2) [facility] Start: 05-23-2028 Lipid panel Lipid Panel [facility] Start: 07-26-2025 Yearly Adult Physical Yearly Adult P hysical [facility] Start: 03-30-2025 ambulatory Ambulatory Facility:[facility] Start: 02-26-2025 Nonstress test [facility] Start: 02-26-2025 Obstetric monitoring [facility] Start: 02-26-2025 Vital signs measurements [facility] Start: 02-26-2025 [facility] Start: 02-26-2025 Patient discharge [facility] Start: 02-19-2025 Nonstress test [facility] Start: 02-19-2025 Obstetric monitoring [facility] Start: 02-19-2025 Vital signs measurements [facility] Start: 02-19-2025 [facility] Start: 02-19-2025 Patient discharge [facility] Start: 02-18-2025 Bacteria identified in Urine by Culture Urine Culture [facility] Start: 02-18-2025 Genital Culture Genital Culture [facility] Start: 02-18-2025 Microscopic observat ion [Identifier] in Unspecified specimen by Gram stain Gram Stain [facility] Start: 02-18-2025 Source specific culture [facility] Start: 02-18-2025 [facility] Start: 02-03-2025 CBC W Auto Different ial panel - Blood [facility] Start: 07-29-2024 End: 07-29-2025 CBC W Auto Differential panel - Blood CBC and Auto Differential Lab Routine Leukocytosis, unspecified type Expected: 07/29/2024 (Approximate), Expires: 07/29/2025 [facility] Work Phone: Comment on above: Expected: 07/29/2024 (Approximate), Expires: 07/29/2025 Start: 07-25-2024 End: 07-25-2025 25-hydroxyvitamin D3 [Mass/volume] in Serum or Plasma Vitamin D 25-Hydroxy,Total (for eval of Vitamin D levels) Lab Routine Vitamin D deficiency Expected: 07/25/2024 (Approximate), Expires: 07/25/2025 [facility] Work Phone: Comment on above: Expected: 07/25/2024 (Approximate), Expires: 07/25/2025 Start: 07-25-2024 End: 01-22-2026 CBC W Auto Differential panel - Blood CBC and Auto Differential Lab Routine Wellness examination Expected: 07/25/2024 (Approximate), Expires: 01/22/2026 [facility] Work Phone: Comment on above: Expected: 07/25/2024 (Approximate), Expires: 01/22/2026 Start: 07-25-2024 End: 07-25-2025 Choriogonadotropin.beta subunit [Units/volume] in Serum or Plasma Human Chorionic Gonadotropin, Serum Quantitative Lab Routine Amenorrhea Expected: 07/25/2024 (Approximate), Expires: 07/25/2025 [facility] Work Phone: Comment on above: Expected: 07/25/2024 (Approximate), Expires: 07/25/2025 Start: 07-25-2024 End: 07-25-2025 Cobalamin (Vitamin B12) [Mass/volume] in Serum or Plasma Vitamin B12 Lab Routine Iron deficiency anemia, unspecified iron deficiency anemia type Expected: 07/25/2024 (Approximate), Expires: 07/25/2025 [facility] Work Phone: Comment on above: Expected: 07/25/2024 (Approximate), Expires: 07/25/2025 Start: 07-25-2024 End: 07-25-2025 Comprehensive metabolic 2000 panel - Serum or Plasma Comprehensive Metabolic Panel Lab Routine Wellness examination Expected: 07/25/2024 (Approximate), Expires: 07/25/2025 [facility] Work Phone: Comment on above: Expected: 07/25/2024 (Approximate), Expires: 07/25/2025 Start: 07-25-2024 End: 07-25-2025 Ferritin [Mass/volume] in Serum or Plasma Ferritin Lab Routine Iron deficiency anemia, unspecified iron deficiency anemia type Expected: 07/25/2024 (Approximate), Expires: 07/25/2025 [facility] Work Phone: Comment on above: Expected: 07/25/2024 (Approximate), Expires: 07/25/2025 Start: 07-25-2024 End: 07-25-2025 Hemoglobin A1c/Hemoglobin.total in Blood Hemoglobin A1C Lab Routine Wellness examination Expected: 07/25/2024 (Approximate), Expires: 07/25/2025 [facility] Work Phone: Comment on above: Expected: 07/25/2024 (Approximate), Expires: 07/25/2025 Start: 07-25-2024 End: 07-25-2025 Iron and Iron binding capacity panel - Serum or Plasma Iron and TIBC Lab Routine Iron deficiency anemia, unspecified iron deficiency anemia type Expected: 07/25/2024 (Approximate), Expires: 07/25/2025 [facility] Work Phone: Comment on above: Expected: 07/25/2024 (Approximate), Expires: 07/25/2025 Start: 07-25-2024 End: 07-25-2025 Lipid 1996 panel - Serum or Plasma Lipid Panel Lab Routine Wellness examination Expected: 07/25/2024 (Approximate), Expires: 07/25/2025 [facility] Work Phone: Comment on above: Expected: 07/25/2024 (Approximate), Expires: 07/25/2025 Start: 07-25-2024 End: 07-25-2025 Parathyrin.intact [Mass/volume] in Serum or Plasma Parathyroid Hormone, Intact Lab Routine Vitamin D deficiency Expected: 07/25/2024 (Approximate), Expires: 07/25/2025 [facility] Work Phone: Comment on above: Expected: 07/25/2024 (Approximate), Expires: 07/25/2025 Start: 07-25-2024 End: 07-25-2025 TSH with reflex to Free T4 if abnormal TSH with reflex to Free T4 if abnormal Lab Routine Wellness examination Expected: 07/25/2024 (Approximate), Expires: 07/25/2025 [facility] Work Phone: Comment on above: Expected: 07/25/2024 (Approximate), Expires: 07/25/2025 Start: 06-03-2024 End: 06-03-2024 Patient encounter procedure 06/03/2024 3:20 PM EDT Office Visit [facility] [address] [place] [id number] Minerva Flower, ENLISTED ADVISOR-STUDIO OPERATOR [address] [place] [address] [facility] Start: 05-31-2024 Yearly Adult Physical Yearly Adult P hysical [facility] Start: 05-11-2024 COVID-19 Vaccine ( season) COVID-19 Vaccine ( season) [facility] Start: 05-11-2024 Influenza vaccination Influenza Vacc ine (#1) [facility] Start: 05-11-2023 Influenza vaccination Influenza Vacc ine (#1) [facility] Start: 2020 DTaP/Tdap/Td Vaccine s (1 - Tdap) DTaP/Tdap/Td Vaccines (1 - Tdap) [facility] Start: 2019 Screening for malign ant neoplasm of cervix [facility] Start: 2017 Hepatitis B Vaccines (1 of 3 - 19+ 3-dose series) Hepatitis B Vaccines (1 of 3 - 19+ 3-dose series) [facility] Start: 2016 Hepatitis C screening Hepatitis C Sc caden [facility] Start: 2013 HPV Vaccines (1 - 3- dose series) HPV Vaccines (1 - 3-dose series) [facility] Start: 2011 Varicella vaccination Varicell a Vaccines (1 of 2 - 13+ 2-dose series) [facility] Start: 2009 HPV Vaccines (1 - 2- dose series) HPV Vaccines (1 - 2-dose series) [facility] Start: 1999 MMR Vaccines (1 of 1 - Standard series) MMR Vaccines (1 of 1 - Standard series) [facility] Start: 1999 Varicella vaccination Varicell a Vaccines (1 of 2 - 2-dose childhood series) [facility] Start: 01-19-1999 COVID-19 Vaccine (#1) COVID-19 Vacci ne (#1) [facility] Start: 1998 Hepatitis B Vaccines (1 of 3 - 3-dose series) Hepatitis B Vaccines (1 of 3 - 3-dose series) [facility] Start: 1998 HIV screening HIV Screening [facility] Chlamydia deoxyribon ucleic acid detection [facility] Erythrocyte mean corpuscular volume determination [facility] Genital microscopy, culture and sensitivities [facility] Hematocrit [Volume Fraction] of Blood [facility] Hemoglobin [Mass/vol ume] in Blood [facility] Leukocytes [#/volume ] in Blood [facility] Liquid based cervica l cytology screening [facility] Mean corpuscular hemoglobin concentration determination [facility] Mean corpuscular hemoglobin determination [facility] Microscopic observat ion [Identifier] in Unspecified specimen by Gram stain [facility] Neutrophil count [facility] Neutrophil percent differential count [facility] Patient Education Kick Counts ED False Labor OB Triage: Return to Hospital or Notify Physician if you Experience: [facility] Work Phone: Patient referral [facility] Work Phone: Platelets [#/volume] in Blood [facility] Red blood cell count [facility] Red cell distributio n width determination [facility] Source specific culture [facility] Streptococcus agalac tiae [Presence] in Unspecified specimen by Organism specific culture [facility] Urine culture [facility] Payers Date Payer Category Payer Unknown [id number] 2024 Self-pay 2023 Managed Care (Private) [facility] [id number] 2023 Private Health Insurance [id number] 2020 Private Health Insurance [facility] [id number] 2020-Present [address] [place] [address] [id number]. [id number] 1998 Unknown [id number] 2.16.840.1.086821.3.579. 2.1245 1998 Unknown [id number] 2.16840.1.000995.3.579. 2.1245 1998 Unknown [id number] 2.16840.1.368200.3.579. 2.1245 1998 Unknown [id number] 2.840.1.750578.3.579. 2.1244 1998 Unknown [id number] 2.840.1.885397.3.579. 2.1244 1998 Unknown [id number] 2.0.1.242751.3.579. 2.124 1998 Unknown [id number] 2.840.1.141232.3.579. 2.1244 1998 Unknown [id number] 2..1.955946.3.579. 2.479 1998 Unknown [id number] 2.840.1.826488.3.579. 2.479 Unknown [employer] Unknown [id number] 2.840.1.483636.3.579. 2.462 Unknown [id number] 2.840.1.741232.3.579. 2.462 Unknown [id number] .1.839423.3.579. 2.462 Unknown [id number] 840.1.422877.3.579. 2.462 Unknown [id number] .840.1.172435.3.579. 2.462 Unknown [id number] 2.840.1.037858.3.579. 2.462 Unknown [id number] 2.840.1.278696.3.579. 2.462 Unknown [id number] 2.840.1.036029.3.579. 2.462 Unknown [id number] 2.16.840.1.006043.3.579. 2.462 Unknown [id number] 2.16.840.1.515079.3.579. 2.462 Unknown [id number] 2.16.840.1.970016.3.579. 2.462 Unknown [id number] 2.16.840.1.008311.3.579. 2.462 Unknown [id number] 2.16.840.1.335662.3.579. 2.462 Unknown [id number] 2.16840.1.708960.3.579. 2.462 Unknown [id number] 2.16840.1.185393.3.579. 2.462 Unknown [id number] 2.840.1.019814.3.579. 2.462 Unknown [id number] 2.840.1.828592.3.579. 2.462 Unknown [id number] 2.840.1.849887.3.579. 2.462 Unknown [id number] 2.840.1.888997.3.579. 2.462 Unknown [id number] 2.840.1.605162.3.579. 2.462 Unknown [id number] 2.16840.1.791398.3.579. 2.462 Unknown [id number] 2.840.1.455024.3.579. 2.462 Unknown [id number] 2.840.1.596896.3.579. 2.462 Unknown [id number] 2.16.840.1.431113.3.579. 2.462 Unknown [id number] 2.16.840.1.704419.3.579. 2.462 Unknown [id number] 2.16.840.1.869129.3.579. 2.462 Unknown [id number] 2.840.1.053201.3.579. 2.462 Unknown [id number] 2.16.840.1.949470.3.579. 2.462 Unknown [id number] 2.16.840.1.623448.3.579. 2.462 Unknown [id number] 2.16.840.1.943015.3.579. 2.462 Unknown [id number] 2.16.840.1.369820.3.579. 2.462 Unknown [id number] 2.16.840.1.920870.3.579. 2.462 Unknown [id number] 2.16.840.1.991351.3.579. 2.462 Unknown [id number] 2.16.840.1.719383.3.579. 2.462 Unknown [id number] 2.16.840.1.897349.3.579. 2.462 Social History Date Type Detail Facility [facility] Tobacco smoking consumption unknown [facility] Start: 05-23-2023 End: 08-15-2024 Tobacco smoking status NHIS Never smoked tobacco [facility] Work Phone: Start: 05-23-2023 Tobacco use and exposure Smokeless tobacco non-user [facility] Work Phone: Start: 07-05-2023 End: 07-29-2024 Alcohol intake Current drinker of alcohol (finding) [facility] Work Phone: Start: 05-30-2023 End: 07-25-2024 History of Social function [facility] Work Phone: Start: 05-30-2023 End: 07-25-2024 Tobacco use panel [facility] Work Phone: Start: 05-23-2023 Tobacco Comment Never [facility] Work Phone: Start: 05-23-2023 Alcohol Comment Occasional alc hohol use. Once per month at maximum. [facility] Work Phone: Start: 1998 Sex Assigned At Not on file U [facility] Work Phone: Start: 06-25-2023 End: 07-29-2024 Exposure to SARS-CoV-2 (event) [facility] to assess [facility] [facility] Work Phone: Start: 07-15-2024 End: 07-25-2024 Exposure to SARS-CoV-2 (event) Not sure [facility] Start: 11-21-2024 Sex Female (finding) [facility] Start: 2000 Sex Assigned At Female [facility] Clinical Notes 07-02-2023 to 03-11-2025 Note Date & Type Note Facility 03-11-2025 Progress note [facility] 03-11-2025 Progress note Note Date/Time March 11, 2025 4:24pm [facility] [address], [address] [place] [address] OFFICE VISIT Date of Service: 03/11/25 MR#: [id number] Acct: [id number] Name: MADDIE TORRE Rep #: [id number] : 2000 Provider: Dr. Maxwell Peters MD Age/Sex: 24/F Location[place] [facility] [place] Status: Signed Intake Vital Signs 02/03/25 13:42 02/26/25 16:25 03/06/25 15:46 03/11/25 15:46 03/11/25 15:51 Height 5 ft 2 in 5 ft 2 in 5 ft 2 in 5 ft 2 in 5 ft 2 in Weight: 198 lb 4 oz BMI 36.2 BP 123/85 H Intake Visit Reasons: 36wk ob [employer] Required: No Is patient in pain?: No Allergies No Known Allergies Allergy (Verified 03/11/25 15:47) Medications ?Medication ?Instructions ?Recorded ?Confirmed ?Type ferrous sulfate 137 mg (45 mg 137 mg PO QDAY 02/03/25 03/11/25 History iron) tablet,extended release (Slow Fe) famotidine 20 mg tablet (Pepcid AC) 20 mg PO BID 02/1803/11/25 History PNV 153-FA 400 mcg-om3 35 mg-dha 1 tab PO DAILY pregna ncy 02/19/25 03/11/25 History 25 mg-epa 5 mg-fish oil chew tablet ( Gummies) Last Menstrual Period: 06/23/24 Zika: Zika virus screening: Negative : No PFSH PFSH Medical History Spontaneous Family History Grandmother Cancer Lung-Maternal Aunt Cancer Pancreatic- Maternal Social History adopted: No household members: spouse current occupational status: employed 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 Date Name GA/Weeks Outcome Route Bth Weight Gen Labor Lgth Anesthesia Del Locatn Provider FOB 01/09/24 5 spontaneous HPI 36wk ob Details: MADDIE TORRE is a 24 year old who presents for routine OB visit. OB Visit ITZEL Calculator Estimated Delivery Date Method Current WG Current Estimate 04/06/25 Ultrasound #1 36w 2d Other Estimates 03/30/25 LMP (Certain) 37w 2d Expected Delivery Route/Plan Labor Preferences- CB/BF [...] Date -?-?-?-?-?-?-?-?-?-?-?-?- EGA Weight BP Urine Prot -?-?-?--?-?-?-?-?-?-?-?-?- Glucose FHR FuHt Pres Dilation -?-?-?-?-?-?-?-?-?--?-?-?- Effaced St Visit Note 08/22/24 -?-?-?-?-?-?-?-?-?-?-?-?- 7w [...] 2 oz) 114/72 Negative -?-?-?-?-?-?-?-?-?-?-?-?- Negative 147 -?--?-?-?-?-?-?-?-?-?-?-?- -No VB. Nausea improved. Good FM. 12/18/24 -?-?-?-?-?-?-?-?-?-?-?-?- 24w 3d 181 lb 6 oz (+15 lb 6 oz) 112/77 Negative -?-?-?-?-?-?-?-?-?-?-?-?- Negative 145 -?-?-?-?-?-?-?-?-?-?-?-?- JV- no lof, vagi nal bleeding, or dec fm. no complaints. 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 ultrasound ordered. 01/06/25 -?-?-?-?-?-?-?-?-?-?-?-?- 27w 1d 188 [...] red top collected. collecting UA and culture. 03/06/25 -?-?-?-?-?-?-?-?-?-?-?-?- 35w 4d 200 lb 4 oz (+34 lb 4 oz) 122/81 Negative -?-?-?-?-?-?-?-?-?-?-?-?- Negative 145 36 Breech -?-?-?-?-?-?-?-?-?-?-?-?- LC- no vb/ctx/lo f. good fm. declines ECV, desires primary cs 03/11/25 -?-?-?-?-?-?-?-?-?-?-?-?- 36w 2d 198 lb 4 oz (+32 lb 4 oz) 123/85 -?-?-?-?-?-?-?-?-?-?-?-?- 140 38 Breech -?-?-?-?-?-?-?-?-?-?-?-?- SM- no vb lof go od fm no reuglar ctx gbs done need gcc next visit, wasn't done today ACOG First Trimester First Trimester: Discussed Second Trimester Second Trimester: Signs and Symptoms of Labor, Selecting a care provider, Reproductive Life Planning & Contreception, Care Planning, Depression/Anxiety and Intimate Partner Violence; Discussed Tobacco Cessation Third Trimester Third Trimester: Pain Management Plans, Labor support person(s), Immediate Larc, Circumcision preference, Signs and Symptoms of Preeclampsia, Infant Feeding No , [place] Education and Family Medical Leave or Disability Forms Coding Level of Care Code OB Routine Diagnoses Breech presentation O32.1XX0 Anemia during in third trimester O99.013 Trimester: third trimester Chlamydia infection during O98.819; A74.9 Family history of hemochromatosis Z83.49 Vegetarian diet Z78.9 Obesity affecting in second trimester, unspecified obesity type O99.212 Obesity type affecting : unspecified obesity Trimester: second trimester H/O miscarriage, currently O09.299 Supervision of high risk in third trimester O09.93 Trimester: third trimester 36 weeks gestation of Z3A.36 Weeks of gestation: 36 weeks Assessment and Plan Assessment and Plan (1) Breech presentation: Status: Acute Comment: desires primary c/s. discussed and declines ECV, C/S 03/30 @ 0715. (2) Anemia in preg-unspec: Status: Acute Qualifiers: Trimester: third trimester Qualified Code(s): O99.013 - Anemia complicating , third trimester (3) Chlamydia infection during : Status: Acute Comment: 08/26/24 azithromycin sent; 10/22/24 rpt culture:negative repeat culture at 36 weeks with the GBS (4) Family history of hemochromatosis: Status: Acute [...] : Status: Acute Qualifiers: Weeks of gestation: 36 weeks Qualified Code(s): Z3A.36 - 36 weeks gestation of Comment: NIPT low risk, Choroid plexus cysts. Orders: Orders Culture, Group B Streptococcus Today O09.93 - Supervision of high risk , unspecified, third trimester POC Urinalysis 2 Dip (Clinic) Today 03/11/25 1629 <Electronically signed by Radha schultz MD> Date _ Radha Peters MD Cosigner Signature: Date (if applicable) CC: ~ [facility] Work Phone: 1(777) 175-211506-12-2025 Radiology Diagnostic study note [facility] Imaging Services [address] [place] [id number] OB Limited (No Biometrics) MR#: [id number] Acct: [id number] Name: MADDIE TORRE Rep #: [id number] : 2000 F 24 From: Sanjiv Montero MD PCP: Minerva Flower TRUCK RENTAL MANAGERLexis Status: REG CLI Study:OB Limited (No Biometrics) Date of Exam : 02/19/25 Exam# [id number] Ordering Dr: Elle Poe CNM PROCEDURE: OB [...] No evidence of placenta previa. Reading Location: [place] [address] CC: AMAIRANI Poe; AMEE Flower ~ Granite Cutter Apprentice: Signed [facility]06-11-2025 Progress [facility] [address], [address] [place] [address] OFFICE VISIT Date of Service: 02/18/25 MR#: [id number] Acct: [id number] Name: MADDIE TORRE Rep #: [id number] : 2000 Provider: Dr. 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 no complaints. 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 ultrasound ordered. 01/06/25 -?-?-?-?-?-?-?-?-?-?-?-?- 27w 1d 188 [...] restriction: Status: Acute Comment: growth US 7%- [facility] referral for fu growth scan. [...] POC Urinalysis 2 Dip (Clinic) Today 02/18/25 1447 e Naveen DO> Date _ María Elena Solomon DO Cosigner Signature: Date (if applicable) CC: ~ [facility]06-11-2025 Progress note Author María Elena Hodge [facility] Note Date/Time February 18, 2025 2:47 pm [facility] [address] [place] [address], [address] [place] [address] OFFICE VISIT Date of Service: 02/18/25 MR#: [id number] Acct: [id number] Name: MADDIE TORRE Rep #: [id number] : 2000 Provider: Dr. 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 no complaints. 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 ultrasound ordered. 01/06/25 -?-?-?-?-?-?-?-?-?-?-?-?- 27w 1d 188 [...] and Symptoms of Preeclampsia, Feeding No , [place] Education and Family Medical Leave or Disability [...] restriction: Status: Acute Comment: growth US 7%- [facility] referral for fu growth scan. [...] POC Urinalysis 2 Dip (Clinic) Today 02/18/25 5417 <Electronically signed by María Elena Arellano DO> Date _ María Elena Solomon DO Cosigner Signature: Date (if applicable) CC: ~ [facility] Work Phone: 1(804) 369-863905-27-2025 Progress note Author Chioma Springer [facility] Note Date/Time February 03, 2025 1:59p m [facility] [address], [address] [place] [address] OFFICE VISIT Date of Service: 02/03/25 MR#: [id number] Acct: [id number] Name: MADDIE TORRE Rep #: [id number] : 2000 Provider: AMEE Springer Age/Sex: 24/F Location[place] [facility] [place] Status: Signed Intake Vital Signs 09/23/24 13:32 01/20/25 14:36 02/03/25 13:42 Height 5 ft 2 in 5 ft 2 in 5 ft 2 in Weight: 190 lb 193 lb 6 oz BMI 34.7 35.4 BP 115/75 108/80 Intake Visit Reasons: 32 wk ob Chief Complaint: 32 Week OB [employer] Required: No Is patient in pain?: No Allergies No Known Allergies Allergy (Verified 05/27/25 13:45) Medications ?Medication ?Instructions ?Recorded ?Confirmed ?Type [...] occupational status: employed 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 Date Name GA/Weeks Outcome Route Bth Weight Infant Gen Labor Lgth Anesthesia Del [facility] Provider FOB 01/09/24 5 spontaneous HPI 32 [...] or dec fm. no complaints. 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 ultrasound ordered. 01/06/25 -?-?-?-?-?-?-?-?-?-?-?-?- 27w 1d 188 [...] restriction: Status: Acute Comment: growth US 7%- [facility] referral for fu growth scan. [...] Continue routine care and follow up. 02/03/25 7460 <Electronically signed by Chioma salinas NP TRUCK RENTAL MANAGER-C> Date _ Chioma Springer NP TRUCK RENTAL MANAGER-C Rupeshignsal Signature: Date (if applicable) CC: ~ [facility] Work Phone: 1(744) 633-265705-27-2025 Progress [facility] [address] [place] [address], [address] [place] [address] OFFICE VISIT Date of Service: 02/03/25 MR#: [id number] Acct: [id number] Name: HARVEYMADDIE IVERSON Rep #: [id number] : 2000 Provider: AMEE Springer Age/Sex: 24/F Location[place] [facility] [place] Status: Signed Intake Vital Signs 09/23/24 13:32 01/20/25 14:36 02/03/25 13:42 Height 5 ft 2 in 5 ft 2 in 5 ft 2 in Weight: 190 lb 193 lb 6 oz BMI 34.7 35.4 BP 115/75 108/80 Intake Visit Reasons: 32 wk ob Chief Complaint: 32 Week OB [employer] Required: No Is patient in pain?: No [...] spouse current occupational status: employed 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 no complaints. 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 ultrasound ordered. 01/06/25 -?-?-?-?-?-?-?-?-?-?-?-?- 27w 1d 188 [...] Symptoms of Preeclampsia, Infant Feeding No , [place] Education and Family Medical Leave or Disability [...] restriction: Status: Acute Comment: growth US 7%- [facility] referral for fu growth scan. [...] care and follow up. 02/03/25 1359 s TRUCK RENTAL MANAGER TRUCK RENTAL MANAGER-C> Date _ Chioma Springer TRUCK RENTAL MANAGER TRUCK RENTAL MANAGER-C Cosigner Signature: Date (if applicable) CC: ~ [facility]05-06-2025 [facility] CONSULTATION Referring Provider María Elena Croft, DO [address] [address] SUBJECTIVE Maddie Torre is a 24 y.o. [...] have any additional questions/concerns or would like MFM to perform future ultrasound exams/ testing. Thank you for allowing me to participate in the care of your patient. Please do not hesitate to contact me if you have any questions or concerns. If findings at delivery differ from our evaluation, please provide us with follow-up for training and quality manager. The data contained in the above ultrasound report/consultation along with subsequent clinical management of the patient are the responsibility of the ordering provider. Sincerely, Stella Weaver MD, FACOG Maternal Medicine Complex Commercial Litigation Paralegal The total time for today's visit is [...] Nausea, Disp: , Rfl: [3] [facility] Radiology Diagnostic study note [facility] Imaging Services [address] [place] [address] OB Limited With Biometrics MR#: [id number] Acct: [id number] Name: MADDIE TORRE Rep #: [id number] : 2000 F 24 From: Emery Francis MD PCP: Minerva Flower, TRUCK RENTAL MANAGER-C Status: REG CLI Study:OB Limited With Biometrics Date of Exam : 01/08/25 Exam# [id number] Ordering Dr: María Elena Spain DO PROCEDURE: OB LIMITED WITH BIOMETRICS 01/08/2025 REASON FOR EXAM: FOLLOW UP TRIMMER TAILER TECHNIQUE: High resolution obstetric ultrasound performed using [...] WEIGHT PERCENTILE (24+ weeks): 7.2% Reading Location: [id number] CC: AMEE Flower; Dr. María Elena Solomon, DO ~ Granite Cutter Apprentice: Signed [facility]04-10-2025 Evaluation note* Diagnosis Onset Date Resolution Status Admit Date Chlamydia infection during acute December 18, 2024 [...] 2025 2:23pm acute January 20, 2025 2:23pm Supervision of high-risk acute January 20, 2025 2 :23pm Vegetarian diet acute January 20, 2025 2:23pm affected by growth restriction resolved January 20 2:23pm Anemia in preg-unspec acute February 03, 2025 1:38pm Chlamydia infection during acute February 03, 2025 1 :38pm Family history of hemochromatosis acute February 03, 2025 1 :38pm H/O miscarriage, currently acute February 03, 2025 1 :38pm Obesity affecting acute February 03, 2025 1:38pm acute February 03, 2025 1:38pm Supervision of high-risk acute February 03, 2025 1 :38pm Vegetarian diet acute February 03, 2025 1:38pm affected by growth restriction resolved February 03 1:38pm Anemia in preg-unspec acute Feb 2:01pm Chlamydia infection during acute February 18, 2025 2:01pm Family history of hemochromatosis acute February 18, 2025 2:01pm H/O miscarriage, currently acute February 18, 2025 2:01pm Obesity affecting acute February 18, 2025 2:01pm acute February 18 2:01pm Supervision of high-risk acute February 18, 2025 2:01pm Vegetarian diet acute February 2:01pm affected by growth restriction resolved February 18 2:01pm Anemia in preg-unspec acute Feb 6:50am Chlamydia infection during acute February 19, 2025 6:50am Family history of hemochromatosis acute February 19, 2025 6:50am H/O miscarriage, currently acute February 19, 2025 6:50am Obesity affecting acute February 19, 2025 6:50am acute February 19 6:50am Supervision of high-risk acute February 19, 2025 6:50am Vegetarian diet acute February 6:50am affected by growth restriction resolved February 19 6:50am Vaginal bleeding during resolved February 19, 2025 6:50am Vaginal bleeding during resolved February 20, 2025 8:52am Anemia in preg-unspec acute Feb 4:07pm Breech presentation acute February 26, 2025 4:07pm Chlamydia infection during acute February 26, 2025 4:07pm Family history of hemochromatosis acute February 26, 2025 4:07pm H/O miscarriage, currently acute February 26, 2025 4:07pm Obesity affecting acute February 26, 2025 4:07pm acute Sabine 19th, 202 5 4:07pm Supervision of high-risk acute February 26, 2025 4:07pm Vegetarian diet acute February 4:07pm affected by growth restriction resolved February 26 4:07pm Threatened labor resolved February 26, 2025 4:07pm Anemia in preg-unspec acute Rick 2024 3:42pm Breech presentation acute March 06, 2025 3:42pm Chlamydia infection during acute March 06, 2025 3:42pm Family history of hemochromatosis acute March 06, 2025 3:42pm H/O miscarriage, currently acute March 06, 2025 3:42pm Obesity affecting acute March 06, 2025 3:42pm acute March 06 3:42pm Supervision of high-risk acute March 06, 2025 3:42pm Vegetarian diet acute February 3:42pm affected by growth restriction resolved March 06 3:42pm Threatened labor resolved March 06, 2025 3:42pm Vaginal bleeding during resolved March 06, 2025 3:42pm Anemia in preg-unspec acute Mar 3:44pm Breech presentation acute March 11, 2025 3:44pm Chlamydia infection during acute March 11, 2025 3 :44pm Family history of hemochromatosis acute March 11, 2025 3 :44pm H/O miscarriage, currently acute March 11, 2025 3 :44pm Obesity affecting acute March 11, 2025 3:44pm acute March 11, 2025 3:44pm Supervision of high-risk acute March 11, 2025 3 :44pm Vegetarian diet acute March 11, 2025 3:44pm Anemia in preg-unspec acute Mar 2:17pm Breech presentation acute March 19, 2025 2:17pm Chlamydia infection during acute March 19, 2025 2:17pm Family history of hemochromatosis acute March 19, 2025 2:17pm H/O miscarriage, currently acute March 19, 2025 2:17pm Obesity affecting acute March 19, 2025 2:17pm acute March 19 2:17pm Supervision of high-risk acute March 19, 2025 2:17pm Vegetarian diet acute March 2:17pm [facility] Work Phone: 1(463) 205-567504-10-2025 Evaluation note* Diagnosis Onset Date Resolution Status Admit Date Chlamydia infection during acute December 18, 2024 [...] 2025 2:23pm acute January 20, 2025 2:23pm Supervision of high-risk acute January 20, 2025 2 :23pm Vegetarian diet acute January 20, 2025 2:23pm affected by growth restriction resolved January 20 2:23pm Anemia in preg-unspec acute February 03, 2025 1:38pm Chlamydia infection during acute February 03, 2025 1 :38pm Family history of hemochromatosis acute February 03, 2025 1 :38pm H/O miscarriage, currently acute February 03, 2025 1 :38pm Obesity affecting acute February 03, 2025 1:38pm acute February 03, 2025 1:38pm Supervision of high-risk acute February 03, 2025 1 :38pm Vegetarian diet acute February 03, 2025 1:38pm affected by growth restriction resolved February 03 1:38pm Anemia in preg-unspec acute Feb 2:01pm Chlamydia infection during acute February 18, 2025 2:01pm Family history of hemochromatosis acute February 18, 2025 2:01pm H/O miscarriage, currently acute February 18, 2025 2:01pm Obesity affecting acute February 18, 2025 2:01pm acute February 18 2:01pm Supervision of high-risk acute February 18, 2025 2:01pm Vegetarian diet acute February 2:01pm affected by growth restriction resolved February 18 2:01pm Anemia in preg-unspec acute Feb 6:50am Chlamydia infection during acute February 19, 2025 6:50am Family history of hemochromatosis acute February 19, 2025 6:50am H/O miscarriage, currently acute February 19, 2025 6:50am Obesity affecting acute February 19, 2025 6:50am acute February 19 6:50am Supervision of high-risk acute February 19, 2025 6:50am Vegetarian diet acute February 6:50am affected by growth restriction resolved February 19 6:50am Vaginal bleeding during resolved February 19, 2025 6:50am Vaginal bleeding during resolved February 20, 2025 8:52am Anemia in preg-unspec acute Feb 4:07pm Breech presentation acute February 26, 2025 4:07pm Chlamydia infection during acute February 26, 2025 4:07pm Family history of hemochromatosis acute February 26, 2025 4:07pm H/O miscarriage, currently acute February 26, 2025 4:07pm Obesity affecting acute February 26, 2025 4:07pm acute February 26 4:07pm Supervision of high-risk acute February 26, 2025 4:07pm Vegetarian diet acute February 4:07pm affected by growth restriction resolved February 26 4:07pm Threatened labor resolved February 26, 2025 4:07pm Anemia in preg-unspec acute Feb 3:42pm Breech presentation acute March 06, 2025 3:42pm Chlamydia infection during acute March 06, 2025 3:42pm Family history of hemochromatosis acute March 06, 2025 3:42pm H/O miscarriage, currently acute March 06, 2025 3:42pm Obesity affecting acute March 06, 2025 3:42pm acute March 06 3:42pm Supervision of high-risk acute March 06, 2025 3:42pm Vegetarian diet acute February 3:42pm affected by growth restriction resolved March 06 3:42pm Threatened labor resolved March 06, 2025 3:42pm Vaginal bleeding during resolved March 06, 2025 3:42pm Anemia in preg-unspec acute Mar 3:44pm Breech presentation acute March 11, 2025 3:44pm Chlamydia infection during acute March 11, 2025 3 :44pm Family history of hemochromatosis acute March 11, 2025 3 :44pm H/O miscarriage, currently acute March 11, 2025 3 :44pm Obesity affecting acute March 11, 2025 3:44pm acute March 11, 2025 3:44pm Supervision of high-risk acute March 11, 2025 3 :44pm Vegetarian diet acute March 11, 2025 3:44pm Anemia in preg-unspec acute Mar 2:17pm Breech presentation acute March 19, 2025 2:17pm Chlamydia infection during acute March 19, 2025 2:17pm Family history of hemochromatosis acute March 19, 2025 2:17pm H/O miscarriage, currently acute March 19, 2025 2:17pm Obesity affecting acute March 19, 2025 2:17pm acute March 19 2:17pm Supervision of high-risk acute March 19, 2025 2:17pm Vegetarian diet acute March 2:17pm Anemia in preg-unspec acute Mar 3:39pm Breech presentation acute March 25, 2025 3:39pm Chlamydia infection during acute March 25, 2025 3:39pm Family history of hemochromatosis acute March 25, 2025 3:39pm H/O miscarriage, currently acute March 25, 2025 3:39pm Obesity affecting acute March 25, 2025 3:39pm acute March 25 3:39pm Supervision of high-risk acute March 25, 2025 3:39pm Vegetarian diet acute March 3:39pm [facility] Work Phone: 1(170) 709-159303-11-2025 Evaluation note* Diagnosis Onset Date Resolution Status [...] 2025 6:50am Vegetarian diet acute February 6:50am [facility] Work Phone: 1(941) 526-188203-11-2025 Evaluation note* Diagnosis Onset Date Resolution Status [...] bleeding during acute February 20, 2025 8:52am [facility] Work Phone: 1(960) 491-364403-11-2025 Evaluation note* Diagnosis Onset Date Resolution Status [...] bleeding during acute February 20, 2025 8:52am Anemia in preg-unspec acute Feb 4:07pm Breech presentation acute February 26, 2025 4:07pm Chlamydia infection during acute February 26, 2025 4:07pm Family history of hemochromatosis acute February 26, 2025 4:07pm H/O miscarriage, currently acute February 26, 2025 4:07pm Obesity affecting acute February 26, 2025 4:07pm acute February 26 4:07pm affected by growth restriction acute February 26 4:07pm Supervision of high-risk acute February 26, 2025 4:07pm Threatened labor acute February 26, 2025 4:07pm Vegetarian diet acute February 4:07pm Anemia in preg-unspec acute Feb 3:42pm Breech presentation acute March 06, 2025 3:42pm Chlamydia infection during acute March 06, 2025 3:42pm Family history of hemochromatosis acute March 06, 2025 3:42pm H/O miscarriage, currently acute March 06, 2025 3:42pm Obesity affecting acute March 06, 2025 3:42pm acute March 06 3:42pm affected by growth restriction acute March 06 3:42pm Supervision of high-risk acute March 06, 2025 3:42pm Threatened labor acute March 06, 2025 3:42pm Vaginal bleeding during acute March 06, 2025 3:42pm Vegetarian diet acute February 3:42pm [facility] Work Phone: 1(694) 791-653303-11-2025 Evaluation note* Diagnosis Onset Date Resolution Status [...] 2025 2:23pm acute January 20, 2025 2:23pm Supervision of high-risk acute January 20, 2025 2 :23pm Vegetarian diet acute January 20, 2025 2:23pm affected by growth restriction resolved January 20 2:23pm Anemia in preg-unspec acute February 03, 2025 1:38pm Chlamydia infection during acute February 03, 2025 1 :38pm Family history of hemochromatosis acute February 03, 2025 1 :38pm H/O miscarriage, currently acute February 03, 2025 1 :38pm Obesity affecting acute February 03, 2025 1:38pm acute February 03, 2025 1:38pm Supervision of high-risk acute February 03, 2025 1 :38pm Vegetarian diet acute February 03, 2025 1:38pm affected by growth restriction resolved February 03 1:38pm Anemia in preg-unspec acute Feb 2:01pm Chlamydia infection during acute February 18, 2025 2:01pm Family history of hemochromatosis acute February 18, 2025 2:01pm H/O miscarriage, currently acute February 18, 2025 2:01pm Obesity affecting acute February 18, 2025 2:01pm acute February 18 2:01pm Supervision of high-risk acute February 18, 2025 2:01pm Vegetarian diet acute February 2:01pm affected by growth restriction resolved February 18 2:01pm Anemia in preg-unspec acute Feb 6:50am Chlamydia infection during acute February 19, 2025 6:50am Family history of hemochromatosis acute February 19, 2025 6:50am H/O miscarriage, currently acute February 19, 2025 6:50am Obesity affecting acute February 19, 2025 6:50am acute February 19 6:50am Supervision of high-risk acute February 19, 2025 6:50am Vegetarian diet acute February 6:50am affected by growth restriction resolved February 19 6:50am Vaginal bleeding during resolved February 19, 2025 6:50am Vaginal bleeding during resolved February 20, 2025 8:52am Anemia in preg-unspec acute Rick e 2024 4:07pm Breech presentation acute February 26, 2025 4:07pm Chlamydia infection during acute February 26, 2025 4:07pm Family history of hemochromatosis acute February 26, 2025 4:07pm H/O miscarriage, currently acute February 26, 2025 4:07pm Obesity affecting acute February 26, 2025 4:07pm acute February 26 4:07pm Supervision of high-risk acute February 26, 2025 4:07pm Vegetarian diet acute February 4:07pm affected by growth restriction resolved February 26 4:07pm Threatened labor resolved February 26, 2025 4:07pm Anemia in preg-unspec acute Feb 3:42pm Breech presentation acute March 06, 2025 3:42pm Chlamydia infection during acute March 06, 2025 3:42pm Family history of hemochromatosis acute March 06, 2025 3:42pm H/O miscarriage, currently acute March 06, 2025 3:42pm Obesity affecting acute March 06, 2025 3:42pm acute March 06 3:42pm Supervision of high-risk acute March 06, 2025 3:42pm Vegetarian diet acute February 3:42pm affected by growth restriction resolved March 06 3:42pm Threatened labor resolved March 06, 2025 3:42pm Vaginal bleeding during resolved March 06, 2025 3:42pm Anemia in preg-unspec acute Mar 3:44pm Breech presentation acute March 11, 2025 3:44pm Chlamydia infection during acute March 11, 2025 3 :44pm Family history of hemochromatosis acute March 11, 2025 3 :44pm H/O miscarriage, currently acute March 11, 2025 3 :44pm Obesity affecting acute March 11, 2025 3:44pm acute March 11, 2025 3:44pm Supervision of high-risk acute March 11, 2025 3 :44pm Vegetarian diet acute March 11, 2025 3:44pm [facility] Work Phone: 1(192) 516-390303-03-2025 Radiology Diagnostic study note [facility] Imaging Services [address], [place] [id number] OB Anatomy w/ Transvaginal MR#: [id number] Acct: [id number] Name: MADDIE TORRE Rep #: [id number] : 2000 F 24 From: Sanjiv Montero MD PCP: SERGE QuinterosC Status: REG CLI Study:OB Anatomy w/ Transvaginal Date of Exam : 11/10/24 Exam# [id number] Ordering Dr: Radha Neal MD PROCEDURE: OB [...] cysts in both choroid plexus. Reading Location: [id number] CC: AMEE Flower; Dr. 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: Signed [facility]02-12-2025 Evaluation note* Diagnosis Onset Date Resolution Status Admit Date Chlamydia infection during acute October 22 2:09pm Family history of hemochromatosis acute October 22 2:09pm H/O miscarriage, currently acute October 22 2:09pm Obesity affecting acute October 22, 2024 2:09pm acute October 22, 2024 2:09pm Supervision of high-risk acute October 22 2:09pm Vegetarian diet acute October 22, 2024 [...] Vegetarian diet acute February 03, 2025 1:38pm [facility] Work Phone: 1(597) 934-370202-12-2025 Evaluation note* Diagnosis Onset Date Resolution Status [...] 2025 2:01pm Vegetarian diet acute February 2:01pm [facility] Work Phone: 1(639) 376-698301-14-2025 Evaluation note* Diagnosis Onset Date Resolution Status [...] 2025 12:36pm Vegetarian diet acute December 12:36pm [facility] Work Phone: 1(480) 344-260601-14-2025 Evaluation note* Diagnosis Onset Date Resolution Status [...] Vegetarian diet acute January 20, 2025 2:23pm [facility] Work Phone: 1(664) 686-735912-02-2024 Evaluation note* Diagnosis Onset Date Resolution Status Admit Date Threatened resolved Decem 2023 11:32am Threatened resolved Dece2023 1:57pm Family history of hemochromatosis acute August [...] 2024 3:36pm Vegetarian diet acute November 3:36pm [facility] Work Phone: 1(824) 972-361711-15-2024 History of Present illness Narrative* Minerva Flower, ENLISTED ADVISOR-STUDIO OPERATOR - 07/25/2024 4:20 PM EST Subjective Patient [...] CALL PER PATIENT REQUEST [facility]: 1(545) 861-118810-23-2023 History of Present illness Narrative* KATHY Quinteros [...] Follow up as before [facility] Work [facility]: Evaluation note* Diagnosis Pharyngitis, unspecified etiology- Primary documented in this encounter [facility] Work Phone: Evaluation note* Diagnosis Wellness examination- Primary Vitamin D deficiency Iron deficiency anemia, unspecified iron deficiency anemia type Amenorrhea Absence of menstruation documented in this encounter [facility] Work Phone: Evaluation note* Diagnosis Leukocytosis, unspecified type- Primary B12 deficiency Vitamin D deficiency documented in this encounter [facility] Work Phone: History of Present illness Narrative* KATHY Quinteros - 07/29/2024 2:20 PM EST Subjective Patient ID: Maddie Torre is a 24 y.o. female who presents for Follow-up (F/U LABS). HPI: Presents today for FU LABS. SHE IS RECENTLY . Appt with arminn 08/22/24. No new complaints B12- LOW. INJECTION [...] CALL PER PATIENT REQUEST [facility] Work Phone: Hospital Discharge instructions [facility] Inst[facility] repeat celestone injection [facility] Work Phone: Reason for referral (narrative)No reason for referral information [facility] Work Phone: Summary Purpose Family History No Family History Records Found Relationship Condition Age at Onset Recorded Date/T [...] November 18, 2024 3:36pm H/O miscarriage, currently [facility] 2024 3:36pm Obesity affecting November 18, [...] January 06, 2025 12: 36pm FOLLOW UP [facility] January 08, 2025 4:10pm Reason for [...] Februa ry 2024 2:09pm H/O miscarriage, currently uary 2024 2:09pm Obesity affecting October 2:09pm October 22, 2024 2:09pm Supervision of high-risk Febru [place] 2024 2:09pm Vegetarian diet October 22, 2024 2:09pm Chlamydia infection during [facility] 2024 3:36pm Family history of hemochromatosis November [...] January 06, 2025 12: 36pm FOLLOW UP [facility] January 08, 2025 4:10pm 30 wk ob January 20, 2025 2:23p m Reason for Visit Admit Date Chlamydia infection during Endy petersen 2024 1:26pm Family history of hemochromatosis Sachin jacques 2024 1:26pm H/O miscarriage, currently Daniel golden 2024 1:26pm Obesity affecting September 1:26pm September [...] January 06, 2025 12: 36pm FOLLOW UP [facility] January 08, 2025 4:10pm 30 wk ob January 20, 2025 2:23p m 32 wk ob February 03, 2025 1:38p m Reason for Visit Admit Date Chlamydia infection during Feb ruary 2024 2:09pm Family history of hemochromatosis Februa ry 2024 2:09pm H/O miscarriage, currently uary 2024 2:09pm Obesity affecting October 2:09pm October 22, 2024 2:09pm Supervision of high-risk Febru [place] 2024 2:09pm Vegetarian diet October 22, 2024 2:09pm Chlamydia infection during Mar ch 2024 3:36pm Family history of hemochromatosis November 18, 2024 3:36pm H/O miscarriage, currently 2024 3:36pm Obesity affecting November 18, 2024 [...] January 06, 2025 12: 36pm FOLLOW UP [facility] January 08, 2025 4:10pm 30 wk [...] January 06, 2025 12: 36pm FOLLOW UP [facility] January 08, 2025 4:10pm 30 wk [...] January 06, 2025 12: 36pm FOLLOW UP [facility] January 08, 2025 4:10pm 30 wk [...] 2025 2: 01pm Chlamydia infection during Rick e 2024 2:01pm Family history of hemochromatosis February 082024 2:01pm H/O miscarriage, currently February 18, 2025 2:01pm Obesity affecting February 18, 2 2:01pm February 18, 2025 2:01 pm affected by growth restr iction February 18, 2025 2:01pm Supervision of high-risk February 18, 2025 2:01pm Vegetarian diet February 18, 2025 2:01 pm Anemia in preg-unspec February 19, 2025 6: 50am Chlamydia infection during Rick e 2024 6:50am Family history of hemochromatosis February 082024 6:50am H/O miscarriage, currently February 19, 2025 6:50am Obesity affecting February 19 6:50am February 19, 2025 6:50 am affected [...] January 06, 2025 12: 36pm FOLLOW UP [facility] January 08, 2025 4:10pm 30 wk [...] 18, 2025 2:01pm Obesity affecting February 18 025 2:01pm February 18, 2025 2:01 pm affected by growth restr iction February 18, 2025 2:01pm Supervision of high-risk February 18, 2025 2:01pm Vegetarian diet February 18, 2025 2:01 pm Anemia in preg-unspec February 19, 2025 6: 50am Chlamydia infection during Rick 2024 6:50am Family history of hemochromatosis February 082024 6:50am H/O miscarriage, currently February 19, 2025 6:50am Obesity affecting February 19 025 6:50am February 19, 2025 6:50 am [...] January 06, 2025 12: 36pm FOLLOW UP [facility] January 08, 2025 4:10pm 30 wk ob [...] TERM LABOR February 26, 2025 4:07 pm Chief Complaint Admit Date ANATOMY November 10, 2024 1:13 pm 21 wk ob November 18, 2024 3:3 6pm 25 wk ob December 18, 2024 1:5 8pm INT LAB ORDERS January 06, 2025 11: 53am 28 wk ob/glucose January 06, 2025 12: 36pm FOLLOW UP [facility] January 08, 2025 4:10pm 30 wk ob [...] TERM LABOR February 26, 2025 4:07 pm R/O PRE TERM LABOR February 26, 2025 8:47 pm 35wk ob March 06, 2025 3:42 pm Reason for Visit Admit Date Chlamydia [...] am Vaginal bleeding during February 082024 8:52am Anemia in preg-unspec February 26, 2025 4: 07pm Breech presentation February 26, 2025 4:07 pm Chlamydia infection during Feb 4:07pm Family history of hemochromatosis February 082024 4:07pm H/O miscarriage, currently February 26, 2025 4:07pm Obesity affecting February 26, 2 025 4:07pm February 26, 2025 4:07 pm affected by growth restr iction February 26, 2025 4:07pm Supervision of high-risk February 26, 2025 4:07pm Threatened labor February 26, 2025 4:07pm Vegetarian diet February 26, 2025 4:07 pm Anemia in preg-unspec March 06, 2025 3: 42pm Breech presentation March 06, 2025 3:42 pm Chlamydia infection during Feb 3:42pm Family history of hemochromatosis February 092024 3:42pm H/O miscarriage, currently March 06, 2025 3:42pm Obesity affecting March 06, 2 025 3:42pm March 06, 2025 3:42 pm affected by growth restr iction March 06, 2025 3:42pm Supervision of high-risk March 06, 2025 3:42pm Threatened labor March 06, 2025 3:42pm Vaginal bleeding during February 092024 3:42pm Vegetarian diet March 06, 2025 3:42 pm Chief Complaint Admit Date 21 wk ob November 18, 2024 3:3 6pm 25 wk ob December 18, 2024 1:5 8pm INT LAB ORDERS January 06, 2025 11: 53am 28 wk ob/glucose January 06, 2025 12: 36pm FOLLOW UP [facility] January 08, 2025 4:10pm 30 wk [...] TERM LABOR February 26, 2025 4:07 pm R/O PRE TERM LABOR February 26, 2025 8:47 pm 35wk ob March 06, 2025 3:42 pm 36wk ob March 11, 2025 3:44p m Reason for Visit Admit Date Chlamydia infection during Mar 2024 3:36pm Family history of hemochromatosis November 18, 2024 3:36pm H/O miscarriage, currently [place] 2024 3:36pm Obesity affecting November 18, 2024 3:36pm November 18, 2024 3:3 6pm Supervision of high-risk November 18, 2024 3:36pm Vegetarian diet November 18, 2024 3:3 6pm Chlamydia infection during Dec 1:58pm Family history of hemochromatosis December 18, [...] 20 2:23pm January 20, 2025 2:23p m Supervision of high-risk January 082024 2:23pm Vegetarian diet January 20, 2025 2:23p m affected by growth restr iction January 20, 2025 2:23pm Anemia in preg-unspec February 03, 2025 1:3 8pm Chlamydia infection during February 03, 2025 1:38pm Family history of hemochromatosis February 032024 1:38pm H/O miscarriage, currently February 03, 2025 1:38pm Obesity affecting February 03 1:38pm February 03, 2025 1:38p m Supervision of high-risk January 092024 1:38pm Vegetarian diet February 03, 2025 1:38p m affected by growth restr iction February 03, 2025 1:38pm Anemia in preg-unspec February 18, 2025 2: 01pm Chlamydia infection during Feb 2:01pm Family history of hemochromatosis February 082024 2:01pm H/O miscarriage, currently February 18, 2025 2:01pm Obesity affecting February 18 025 2:01pm February 18, 2025 2:01 pm Supervision of high-risk February 18, 2025 2:01pm Vegetarian diet February 18, 2025 2:01 pm affected by growth restr iction February 18, 2025 2:01pm Anemia in preg-unspec February 19, 2025 6: 50am Chlamydia infection during Feb 6:50am Family history of hemochromatosis February 082024 6:50am H/O miscarriage, currently February 19, 2025 6:50am Obesity affecting February 19, 025 6:50am February 19, 2025 6:50 am Supervision of high-risk February 19, 2025 6:50am Vegetarian diet February 19, 2025 6:50 am affected by growth restr iction February 19, 2025 6:50am Vaginal bleeding during February 082024 6:50am Vaginal bleeding during February 082024 8:52am Anemia in preg-unspec February 26, 2025 4: 07pm Breech presentation February 26, 2025 4:07 pm Chlamydia infection during Feb 4:07pm Family history of hemochromatosis February 082024 4:07pm H/O miscarriage, currently February 26, 2025 4:07pm Obesity affecting February 26 4:07pm February 26, 2025 4:07 pm Supervision of high-risk February 26, 2025 4:07pm Vegetarian diet February 26, 2025 4:07 pm affected by growth restr iction February 26, 2025 4:07pm Threatened labor February 26, 2025 4:07pm Anemia in preg-unspec March 06, 2025 3: 42pm Breech presentation March 06, 2025 3:42 pm Chlamydia infection during Feb 3:42pm Family history of hemochromatosis February 092024 3:42pm H/O miscarriage, currently March 06, 2025 3:42pm Obesity affecting March 06 3:42pm March 06, 2025 3:42 pm Supervision of high-risk March 06, 2025 3:42pm Vegetarian diet March 06, 2025 3:42 pm affected by growth restr iction March 06, 2025 3:42pm Threatened labor March 06, 2025 3:42pm Vaginal bleeding during February 092024 3:42pm Anemia in preg-unspec March 11, 2025 3:4 4pm Breech presentation March 11, 2025 3:44p m Chlamydia infection during Mar 3:44pm Family history of hemochromatosis March 112024 3:44pm H/O miscarriage, currently March 11, 2025 3:44pm Obesity affecting March 11 3:44pm March 11, 2025 3:44p m Supervision of high-risk March 11, 2025 3:44pm Vegetarian diet March 11, 2025 3:44p m Chief Complaint Admit Date 25 wk ob December 18, 2024 1:5 8pm INT LAB ORDERS January 06, 2025 11: 53am 28 wk ob/glucose January 06, 2025 12: 36pm FOLLOW UP [facility] January 08, 2025 4:10pm 30 wk [...] TERM LABOR February 26, 2025 4:07 pm R/O PRE TERM LABOR February 26, 2025 8:47 pm 35wk ob March 06, 2025 3:42 pm 36wk ob March 11, 2025 3:44p m 37wk ob March 19, 2025 2:17 pm Reason for Visit Admit Date Chlamydia infection during Apr 2024 1:58pm Family [...] 20 2:23pm January 20, 2025 2:23p m Supervision of high-risk January 082024 2:23pm Vegetarian diet January 20, 2025 2:23p m affected by growth restr iction January 20, 2025 2:23pm Anemia in preg-unspec February 03, 2025 1:3 8pm Chlamydia infection during February 03, 2025 1:38pm Family history of hemochromatosis February 032024 1:38pm H/O miscarriage, currently February 03, 2025 1:38pm Obesity affecting February 03 1:38pm February 03, 2025 1:38p m Supervision of high-risk January 092024 1:38pm Vegetarian diet February 03, 2025 1:38p m affected by growth restr iction February 03, 2025 1:38pm Anemia in preg-unspec February 18, 2025 2: 01pm Chlamydia infection during Feb 2:01pm Family history of hemochromatosis February 082024 2:01pm H/O miscarriage, currently February 18, 2025 2:01pm Obesity affecting February 18 2 025 2:01pm February 18, 2025 2:01 pm Supervision of high-risk February 18, 2025 2:01pm Vegetarian diet February 18, 2025 2:01 pm affected by growth restr iction February 18, 2025 2:01pm Anemia in preg-unspec February 19, 2025 6: 50am Chlamydia infection during Feb 6:50am Family history of hemochromatosis February 082024 6:50am H/O miscarriage, currently February 19, 2025 6:50am Obesity affecting February 19, 2 025 6:50am February 19, 2025 6:50 am Supervision of high-risk February 19, 2025 6:50am Vegetarian diet February 19, 2025 6:50 am affected by growth restr iction February 19, 2025 6:50am Vaginal bleeding during February 082024 6:50am Vaginal bleeding during February 082024 8:52am Anemia in preg-unspec February 26, 2025 4: 07pm Breech presentation February 26, 2025 4:07 pm Chlamydia infection during Feb 4:07pm Family history of hemochromatosis February 082024 4:07pm H/O miscarriage, currently February 26, 2025 4:07pm Obesity affecting February 26 025 4:07pm February 26, 2025 4:07 pm Supervision of high-risk February 26, 2025 4:07pm Vegetarian diet February 26, 2025 4:07 pm affected by growth restr iction February 26, 2025 4:07pm Threatened labor February 26, 2025 4:07pm Anemia in preg-unspec March 06, 2025 3: 42pm Breech presentation March 06, 2025 3:42 pm Chlamydia infection during Feb 3:42pm Family history of hemochromatosis February 092024 3:42pm H/O miscarriage, currently March 06, 2025 3:42pm Obesity affecting March 06 025 3:42pm March 06, 2025 3:42 pm Supervision of high-risk March 06, 2025 3:42pm Vegetarian diet March 06, 2025 3:42 pm affected by growth restr iction March 06, 2025 3:42pm Threatened labor March 06, 2025 3:42pm Vaginal bleeding during February 092024 3:42pm Anemia in preg-unspec March 11, 2025 3:4 4pm Breech presentation March 11, 2025 3:44p m Chlamydia infection during Mar 3:44pm Family history of hemochromatosis March 112024 3:44pm H/O miscarriage, currently March 11, 2025 3:44pm Obesity affecting March 11 3:44pm March 11, 2025 3:44p m Supervision of high-risk March 11, 2025 3:44pm Vegetarian diet March 11, 2025 3:44p m Anemia in preg-unspec March 19, 2025 2: 17pm Breech presentation March 19, 2025 2:17 pm Chlamydia infection during Mar 2:17pm Family history of hemochromatosis March 102024 2:17pm H/O miscarriage, currently March 19, 2025 2:17pm Obesity affecting March 19, 025 2:17pm March 19, 2025 2:17 pm Supervision of high-risk March 19, 2025 2:17pm Vegetarian diet March 19, 2025 2:17 pm Chief Complaint Admit Date 25 wk ob December 18, 2024 1:5 8pm INT LAB ORDERS January 06, 2025 11: 53am 28 wk ob/glucose January 06, 2025 12: 36pm FOLLOW UP [facility] January 08, 2025 4:10pm 30 wk [...] TERM LABOR February 26, 2025 4:07 pm R/O PRE TERM LABOR February 26, 2025 8:47 pm 35wk ob March 06, 2025 3:42 pm 36wk ob March 11, 2025 3:44p m 37wk ob March 19, 2025 2:17 pm 38wk ob March 25, 2025 3:39 pm Reason for Visit Admit Date Chlamydia infection during Apr 2024 1:58pm Family history of hemochromatosis December 18, 2024 1:58pm H/O miscarriage, currently Apr2024 1:58pm Obesity affecting December 18, 2024 1:58pm [...] 20 2:23pm January 20, 2025 2:23p m Supervision of high-risk January 082024 2:23pm Vegetarian diet January 20, 2025 2:23p m affected by growth restr iction January 20, 2025 2:23pm Anemia in preg-unspec February 03, 2025 1:3 8pm Chlamydia infection during February 03, 2025 1:38pm Family history of hemochromatosis February 032024 1:38pm H/O miscarriage, currently February 03, 2025 1:38pm Obesity affecting February 03 1:38pm February 03, 2025 1:38p m Supervision of high-risk January 092024 1:38pm Vegetarian diet February 03, 2025 1:38p m affected by growth restr iction February 03, 2025 1:38pm Anemia in preg-unspec February 18, 2025 2: 01pm Chlamydia infection during Feb 2:01pm Family history of hemochromatosis February 082024 2:01pm H/O miscarriage, currently February 18, 2025 2:01pm Obesity affecting February 18, 2:01pm February 18, 2025 2:01 pm Supervision of high-risk February 18, 2025 2:01pm Vegetarian diet February 18, 2025 2:01 pm affected by growth restr iction February 18, 2025 2:01pm Anemia in preg-unspec February 19, 2025 6: 50am Chlamydia infection during Feb 6:50am Family history of hemochromatosis February 082024 6:50am H/O miscarriage, currently February 19, 2025 6:50am Obesity affecting February 19 025 6:50am February 19, 2025 6:50 am Supervision of high-risk February 19, 2025 6:50am Vegetarian diet February 19, 2025 6:50 am affected by growth restr iction February 19, 2025 6:50am Vaginal bleeding during February 082024 6:50am Vaginal bleeding during February 082024 8:52am Anemia in preg-unspec February 26, 2025 4: 07pm Breech presentation February 26, 2025 4:07 pm Chlamydia infection during Feb 4:07pm Family history of hemochromatosis February 082024 4:07pm H/O miscarriage, currently February 26, 2025 4:07pm Obesity affecting February 26 4:07pm February 26, 2025 4:07 pm Supervision of high-risk February 26, 2025 4:07pm Vegetarian diet February 26, 2025 4:07 pm affected by growth restr iction February 26, 2025 4:07pm Threatened labor February 26, 2025 4:07pm Anemia in preg-unspec March 06, 2025 3: 42pm Breech presentation March 06, 2025 3:42 pm Chlamydia infection during Feb 3:42pm Family history of hemochromatosis February 092024 3:42pm H/O miscarriage, currently March 06, 2025 3:42pm Obesity affecting March 06 025 3:42pm March 06, 2025 3:42 pm Supervision of high-risk March 06, 2025 3:42pm Vegetarian diet March 06, 2025 3:42 pm affected by growth restr iction March 06, 2025 3:42pm Threatened labor March 06, 2025 3:42pm Vaginal bleeding during February 092024 3:42pm Anemia in preg-unspec March 11, 2025 3:4 4pm Breech presentation March 11, 2025 3:44p m Chlamydia infection during Mar 3:44pm Family history of hemochromatosis March 112024 3:44pm H/O miscarriage, currently March 11, 2025 3:44pm Obesity affecting March 11 3:44pm March 11, 2025 3:44p m Supervision of high-risk March 11, 2025 3:44pm Vegetarian diet March 11, 2025 3:44p m Anemia in preg-unspec March 19, 2025 2: 17pm Breech presentation March 19, 2025 2:17 pm Chlamydia infection during Mar 2:17pm Family history of hemochromatosis March 102024 2:17pm H/O miscarriage, currently March 19, 2025 2:17pm Obesity affecting March 19 025 2:17pm March 19, 2025 2:17 pm Supervision of high-risk March 19, 2025 2:17pm Vegetarian diet March 19, 2025 2:17 pm Anemia in preg-unspec March 25, 2025 3: 39pm Breech presentation March 25, 2025 3:39 pm Chlamydia infection during Mar 3:39pm Family history of hemochromatosis March 102024 3:39pm H/O miscarriage, currently March 25, 2025 3:39pm Obesity affecting March 25, 025 3:39pm March 25, 2025 3:39 pm Supervision of high-risk March 25, 2025 3:39pm Vegetarian diet March 25, 2025 3:39 pm Additional Source Comments <item> Privacy Markings (unrecogniz ed section and content) Section Author: Kelsi Burrell PROHIBITION ON REDISCLOSURE OF CONFIDENTIAL INFORMATION This notice accompanies a disclosure of information concerning a client made to you with the consent of such client. INFORMATION SOURCE (unrecogn ized section and content) DATE CREATED AUTHOR 12/01/2021 [facility] DATE CREATED AUTHOR AUTHOR'S ORGANIZ ATION 08/05/2024 [facility] DATE CREATED AUTHOR AUTHOR'S ORGANIZ ATION 09/22/2024 [facility] DATE CREATED AUTHOR AUTHOR'S ORGANIZ ATION 01/16/2025 [facility] DATE CREATED AUTHOR AUTHOR'S ORGANIZ ATION 03/27/2025 [facility] Reason for Visit (unrecogniz ed section and [...] Care Teams (unrecognized sec tion and content) International [employer] Relationship Specialty Start Date End Date Minerva Flower APRN-ANGELO [address] [place] [address] PCP - General Internal Medicine 05/23/23 International Rec[employer]iter Relationship Specialty Start Date End Date Minerva Flower APRN-CNP [address] [place] [address] PCP - General Internal Medicine 05/23/23 International Rec[employer]iter Relationship Specialty Start Date End Date Minerva Flower APRN-CNP [address] [place] [address] PCP - General Internal Medicine 05/23/23 Team [...] Role Status Dates Minerva Kolby Flower , TRUCK RENTAL MANAGER-C Primary Care Provider Active Start: August 11, 2024 End: August 11, 2024 Dr. Radha Peters MD Attending Provider Active Start: August 11, 2024 End: August 11, 2024 Dr. Radha Peters MD Referring Provider Active Start: August 11, 2024 End: August 11, 2024 Team Status: Inactive Member Role Status Dates Minerva D Flower , TRUCK RENTAL MANAGER-C Primary Care Provider Active Start: August 13, 2024 End: August 13, 2024 Minerva Kolby Flower , TRUCK RENTAL MANAGER-C Referring Provider Active St art: August 13, 2024 End: August 13, 2024 Dr. Radha Peters MD Attending Provider Active Start: August 13, 2024 End: August 13, 2024 Team Status: Active Member Role Status Dates Minerva D Flower , TRUCK RENTAL MANAGER-C Primary Care Provider Active Start: August 15, 2024 Faith Wall RN Attending Provider Active St art: August 15, 2024 Team Status: Inactive Member Role Status Dates Minerva D Flower , TRUCK RENTAL MANAGER-C Primary Care Provider Active Start: August 22, 2024 End: August 22, 2024 Minerva Kolby Flower , TRUCK RENTAL MANAGER-C Referring Provider Active St art: August 22, 2024 End: August 22, 2024 Elle Poe CNM Attending Provider Active S tart: August 22, 2024 End: August 22, 2024 Team Status: Inactive Member Role Status Dates Minerva Kolby Flower , TRUCK RENTAL MANAGER-C Primary Care Provider Active Start: August 22, 2024 End: August 22, 2024 Dr. Radha Peters MD Attending Provider Active Start: August 22, 2024 End: August 22, 2024 Dr. Radha Peters MD Referring Provider Active Start: August 22, 2024 End: August 22, 2024 Team Status: Inactive Member Role Status Dates Minerva Kolby Flower , TRUCK RENTAL MANAGER-C Primary Care Provider Active Start: September 15, 2024 End: September 15, 2024 Dr. Radha Peters MD Attending Provider Active Start: September 15, 2024 End: September 15, 2024 Dr. Radha Peters MD Referring Provider Active Start: September 15, 2024 End: September 15, 2024 Team Status: Inactive Member Role Status Dates Minerva Flower , TRUCK RENTAL MANAGER-C Primary Care Provider Active Start: September 23, 2024 End: September 23, 2024 Minerva Flower , TRUCK RENTAL MANAGER-C Referring Provider Active St art: September 23, 2024 End: September 23, 2024 Dr. Radha Peters MD Attending Provider Active Start: September 23, 2024 End: September 23, 2024 Team Status: Inactive Member Role Status Dates Minerva Flower , TRUCK RENTAL MANAGER-C Primary Care Provider Active Start: October 22, 2024 End: October 22, 2024 Minerva Flower , TRUCK RENTAL MANAGER-C Referring Provider Active St art: October 22, 2024 End: October 22, 2024 Chioma Springer NP, TRUCK RENTAL MANAGER-C Attending Provider Active Start: October 22, 2024 End: October 22, 2024 Team Status: Inactive Member Role Status Dates Minerva Flower , TRUCK RENTAL MANAGER-C Primary Care Provider Active Start: October 22, 2024 End: October 22, 2024 Chioma Springer NP, TRUCK RENTAL MANAGER-C Attending Provider Active Start: October 22, 2024 End: October 22, 2024 Chioma Springer NP, TRUCK RENTAL MANAGER-C Referring Provider Active Start: October 22, 2024 End: October 22, 2024 Team Status: Inactive Member Role Status Dates Minerva Flower , TRUCK RENTAL MANAGER-C Primary Care Provider Active Start: November 10, 2024 End: November 10, 2024 Dr. Radha Peters MD Attending Provider Active Start: November 10, 2024 End: November 10, 2024 Dr. Radha Peters MD Referring Provider Active Start: November 10, 2024 End: November 10, 2024 Team Status: Inactive Member Role Status Dates Minerva Flower , TRUCK RENTAL MANAGER-C Primary Care Provider Active Start: November 18, 2024 End: November 18, 2024 Minerva Flower TRUCK RENTAL MANAGER-C Referring Provider Active St art: November 18, 2024 End: November 18, 2024 Chioma Springer NP, TRUCK RENTAL MANAGER-C Attending Provider Active Start: November 18, 2024 End: November 18, 2024 Team Status: Inactive Member Role Status Dates Minerva Flower , TRUCK RENTAL MANAGER-C Primary Care Provider Active Start: December 18, 2024 End: December 18, 2024 Minerva Flower TRUCK RENTAL MANAGER-C Referring Provider Active St art: December 18, 2024 End: December 18, 2024 Dr. María Elena Solomon , DO Attending Provider Activ e Start: December 18, 2024 End: December 18, 2024 Team Status: Inactive Member Role Status Dates Minerva Flower TRUCK RENTAL MANAGER-C Primary Care Provider Active Start: January 06, 2025 End: January 06, 2025 Dr. María Elena Solomon , DO Attending Provider Activ e Start: January 06, 2025 End: January 06, 2025 Dr. María Elena Solomon , DO Referring Provider Activ e Start: January 06, 2025 End: January 06, 2025 Team Status: Inactive Member Role Status Dates Minerva Flower TRUCK RENTAL MANAGER-C Primary Care Provider Active Start: January 06, 2025 End: January 06, 2025 Minerva Flower TRUCK RENTAL MANAGER-C Referring Provider Active St art: January 06, 2025 End: January 06, 2025 Elle Poe CNM Attending Provider Active S tart: January 06, 2025 End: January 06, 2025 Team Status: Active Member Role Status Dates Minerva Flower TRUCK RENTAL MANAGER-C Primary Care Provider Active Start: January 08, 2025 Dr. María Elena Solomon , DO Attending Provider Activ e Start: January 08, 2025 Dr. María Elena Solomon , DO Referring Provider Activ e Start: January 08, 2025 Team Status: Inactive Member Role Status Dates Minerva Flower TRUCK RENTAL MANAGER-C Primary Care Provider Active Start: January 08, 2025 End: January 08, 2025 Dr. María Elena Solomon , Attending Provider Activ e Start: January 08, 2025 End: January 08, 2025 Dr. María Elena Solomon , Referring Provider Activ e Start: January 08, 2025 End: January 08, 2025 Team Status: Inactive Member Role Status Dates Minerva Flower TRUCK RENTAL MANAGER-C Primary Care Provider Active Start: January 20, 2025 End: January 20, 2025 Minerva Flower TRUCK RENTAL MANAGER-C Referring Provider Active St art: January 20, 2025 End: January 20, 2025 Amber Dyer CNM Attending Provider Active Start: January 20, 2025 End: January 20, 2025 Team Status: Inactive Member Role Status Dates Minerva D Flower , TRUCK RENTAL MANAGER-C Primary Care Provider Active Start: February 03, 2025 End: February 03, 2025 Minerva Flower , TRUCK RENTAL MANAGER-C Referring Provider Active St art: February 03, 2025 End: February 03, 2025 Chioma Springer TRUCK RENTAL MANAGER, TRUCK RENTAL MANAGER-C Attending Provider Active Start: February 03, 2025 End: February 03, 2025 Team Status: Active Member Role Status Dates Minerva Flower , TRUCK RENTAL MANAGER-C Primary Care Provider Active Start: February 03, 2025 Chioma Springer TRUCK RENTAL MANAGER, TRUCK RENTAL MANAGER-C Attending Provider Active Start: February 03, 2025 Team Status: Inactive Member Role Status Dates Minerva Flower , TRUCK RENTAL MANAGER-C Primary Care Provider Active Start: February 03, 2025 End: February 03, 2025 Chioma Springer TRUCK RENTAL MANAGER, TRUCK RENTAL MANAGER-C Attending Provider Active Start: February 03, 2025 End: February 03, 2025 Team Status: Inactive Member Role Status Dates Minerva Flower , TRUCK RENTAL MANAGER-C Primary Care Provider Active Start: February 18, 2025 End: February 18, 2025 Minerva Flower , TRUCK RENTAL MANAGER-C Referring Provider Active St art: February 18, 2025 End: February 18, 2025 Dr. María Elena Solomon , DO Attending Provider Activ e Start: February 18, 2025 End: February 18, 2025 Team Status: Active Member Role Status Dates Minerva Flower , TRUCK RENTAL MANAGER-C Primary Care Provider Active Start: February 18, 2025 Dr. María Elena Solomon , DO Attending Provider Activ e Start: February 18, 2025 Team Status: Inactive Member Role Status Dates Minerva Flower , TRUCK RENTAL MANAGER-C Primary Care Provider Active Start: February 19, 2025 End: February 19, 2025 Dr. María Elena Solomon , Attending Provider Activ e Start: February 19, 2025 End: February 19, 2025 Dr. María Elena Solomon DO Referring Provider Activ e Start: February 19, 2025 End: February 19, 2025 Team Status: Active Member Role Status Dates Minerva Kolby Flower , TRUCK RENTAL MANAGER-C Primary Care Provider Active Start: February 19, 2025 Dr. María Elena Solomon DO Referring Provider Activ e Start: February 19, 2025 Dr. María Elena Solomon , DO Other Provider Active Start: February 19, 2025 Elle Poe CNM Attending Provider Active S tart: February 19, 2025 Team Status: Inactive Member Role Status Dates Minerva Flower , TRUCK RENTAL MANAGER-C Primary Care Provider Active Start: February 20, 2025 End: February 20, 2025 Amber Dyre CNM Attending Provider Active Start: February 20, 2025 End: February 20, 2025 Amber Dyer CNM Referring Provider Active Start: February 20, 2025 End: February 20, 2025 Team Status: Inactive Member Role Status Dates Minerva Flower , TRUCK RENTAL MANAGER-C Primary Care Provider Active Start: February 18, 2025 End: February 18, 2025 Dr. María Elena Solomon DO Attending Provider Activ e Start: February 18, 2025 End: February 18, 2025 Team Status: Active Member Role Status Dates Minerva Flower TRUCK RENTAL MANAGER-C Primary Care Provider Active Start: February 21, 2025 Amber Dyer CNM Attending Provider Active Start: February 21, 2025 Amber Dyer CNM Referring Provider Active Start: February 21, 2025 Amber Dyer CNM Other Provider Active Star t: February 21, 2025 Team Status: Inactive Member Role Status Dates Minerva Flower , TRUCK RENTAL MANAGER-C Primary Care Provider Active Start: February 26, 2025 End: February 26, 2025 Dr. María Elena Solomon DO Attending Provider Activ e Start: February 26, 2025 End: February 26, 2025 Dr. María Elena Solomon DO Referring Provider Activ e Start: February 26, 2025 End: February 26, 2025 Team Status: Active Member Role/Relationship Status Dates Minerva Flower , TRUCK RENTAL MANAGER-C Primary Care Provider Active Team Status: Inactive Member Role/Relationship Status Dates Minerva Flower , TRUCK RENTAL MANAGER-C Primary Care Provider Active Start: November 10, 2024 End: November 10, 2024 Dr. Radha Peters MD Attending Provider Active Start: November 10, 2024 End: November 10, 2024 Dr. Radha Peters MD Referring Provider Active Start: November 10, 2024 End: November 10, 2024 Team Status: Inactive Member Role/Relationship Status Dates Minerva Flower , TRUCK RENTAL MANAGER-C Primary Care Provider Active Start: November 18, 2024 End: November 18, 2024 Minerva Flower TRUCK RENTAL MANAGER-C Referring Provider Active St art: November 18, 2024 End: November 18, 2024 Chioma Springer NP, TRUCK RENTAL MANAGER-C Attending Provider Active Start: November 18, 2024 End: November 18, 2024 Team Status: Inactive Member Role/Relationship Status Dates Minerva Flower TRUCK RENTAL MANAGER-C Primary Care Provider Active Start: December 18, 2024 End: December 18, 2024 Minerva Flower TRUCK RENTAL MANAGER-C Referring Provider Active St art: December 18, 2024 End: December 18, 2024 Dr. María Elena Solomon , DO Attending Provider Activ e Start: December 18, 2024 End: December 18, 2024 Team Status: Inactive Member Role/Relationship Status Dates Minerva Flower TRUCK RENTAL MANAGER-C Primary Care Provider Active Start: January 06, 2025 End: January 06, 2025 Dr. María Elena Solomon DO Attending Provider Activ e Start: January 06, 2025 End: January 06, 2025 Dr. María Elena Solomon DO Referring Provider Activ e Start: January 06, 2025 End: January 06, 2025 Team Status: Inactive Member Role/Relationship Status Dates Minerva Flower TRUCK RENTAL MANAGER-C Primary Care Provider Active Start: January 06, 2025 End: January 06, 2025 Minerva Flower TRUCK RENTAL MANAGER-C Referring Provider Active St art: January 06, 2025 End: January 06, 2025 Elle Poe CNM Attending Provider Active S tart: January 06, 2025 End: January 06, 2025 Team Status: Inactive Member Role/Relationship Status Dates Minerva Flower TRUCK RENTAL MANAGER-C Primary Care Provider Active Start: January 08, 2025 End: January 08, 2025 Dr. María Elena Solomon DO Attending Provider Activ e Start: January 08, 2025 End: January 08, 2025 Dr. María Elena Solomon DO Referring Provider Activ e Start: January 08, 2025 End: January 08, 2025 Team Status: Inactive Member Role/Relationship Status Dates Minerva Flower TRUCK RENTAL MANAGER-C Primary Care Provider Active Start: January 20, 2025 End: January 20, 2025 Minerva Flower TRUCK RENTAL MANAGER-C Referring Provider Active St art: January 20, 2025 End: January 20, 2025 Amber Dyer CNM Attending Provider Active Start: January 20, 2025 End: January 20, 2025 Team Status: Inactive Member Role/Relationship Status Dates Minerva Flower , TRUCK RENTAL MANAGER-C Primary Care Provider Active Start: February 03, 2025 End: February 03, 2025 Minerva Flower , TRUCK RENTAL MANAGER-C Referring Provider Active St art: February 03, 2025 End: February 03, 2025 Chioma Springer TRUCK RENTAL MANAGER, TRUCK RENTAL MANAGER-C Attending Provider Active Start: February 03, 2025 End: February 03, 2025 Team Status: Inactive Member Role/Relationship Status Dates Minerva Flower , TRUCK RENTAL MANAGER-C Primary Care Provider Active Start: February 03, 2025 End: February 03, 2025 Chioma Springer NP, TRUCK RENTAL MANAGER-C Attending Provider Active Start: February 03, 2025 End: February 03, 2025 Team Status: Inactive Member Role/Relationship Status Dates Minerva Kolby Flower , TRUCK RENTAL MANAGER-C Primary Care Provider Active Start: February 18, 2025 End: February 18, 2025 Minerva Flower , TRUCK RENTAL MANAGER-C Referring Provider Active St art: February 18, 2025 End: February 18, 2025 Dr. María Elena Solomon , Attending Provider Activ e Start: February 18, 2025 End: February 18, 2025 Team Status: Inactive Member Role/Relationship Status Dates Minerva Kolby Flower , TRUCK RENTAL MANAGER-C Primary Care Provider Active Start: February 18, 2025 End: February 18, 2025 Dr. María Elena Solomon DO Attending Provider Activ e Start: February 18, 2025 End: February 18, 2025 Team Status: Inactive Member Role/Relationship Status Dates Minerva Kolby Flower , TRUCK RENTAL MANAGER-C Primary Care Provider Active Start: February 19, 2025 End: February 19, 2025 Dr. María Elena Solomon DO Attending Provider Activ e Start: February 19, 2025 End: February 19, 2025 Dr. María Elena Solomon DO Referring Provider Activ e Start: February 19, 2025 End: February 19, 2025 Team Status: Active Member Role/Relationship Status Dates Minerva Kolby Flower , TRUCK RENTAL MANAGER-C Primary Care Provider Active Start: February 19, 2025 Dr. María Elena Solomon DO Referring Provider Activ e Start: February 19, 2025 Dr. María Elena Solomon , Other Provider Active Start: February 19, 2025 Elle Poe CNM Attending Provider Active S tart: February 19, 2025 Team Status: Inactive Member Role/Relationship Status Dates Minerva Flower TRUCK RENTAL MANAGER-C Primary Care Provider Active Start: February 20, 2025 End: February 20, 2025 Amber Dyer CNM Attending Provider Active Start: February 20, 2025 End: February 20, 2025 Amber Dyer CNM Referring Provider Active Start: February 20, 2025 End: February 20, 2025 Team Status: Active Member Role/Relationship Status Dates Minerva Flower TRUCK RENTAL MANAGER-C Primary Care Provider Active Start: February 21, 2025 Amber Dyer CNM Attending Provider Active Start: February 21, 2025 Amber Dyer CNM Referring Provider Active Start: February 21, 2025 Amber Dyer CNM Other Provider Active Star t: February 21, 2025 Team Status: Inactive Member Role/Relationship Status Dates Minerva Flower TRUCK RENTAL MANAGER-C Primary Care Provider Active Start: February 26, 2025 End: February 26, 2025 Dr. María Elena Solomon , Attending Provider Activ e Start: February 26, 2025 End: February 26, 2025 Dr. María Elena oSlomon DO Referring Provider Activ e Start: February 26, 2025 End: February 26, 2025 Team Status: Active Member Role/Relationship Status Dates Minerva Flower TRUCK RENTAL MANAGER-C Primary Care Provider Active Start: February 26, 2025 Dr. María Elena Solomon DO Attending Provider Activ e Start: February 26, 2025 Dr. María Elena Solomon DO Referring Provider Activ e Start: February 26, 2025 Dr. María Elena Solomon , Other Provider Active Start: February 26, 2025 Team Status: Inactive Member Role/Relationship Status Dates Minerva Flower TRUCK RENTAL MANAGER-C Primary Care Provider Active Start: March 06, 2025 End: March 06, 2025 Minerva Flower NP-C Referring Provider Active St art: March 06, 2025 End: March 06, 2025 Amber Dyer CNM Attending Provider Active Start: March 06, 2025 End: March 06, 2025 Team Status: Inactive Member Role/Relationship Status Dates Minerva Flower , TRUCK RENTAL MANAGER-C Primary Care Provider Active Start: November 18, 2024 End: November 18, 2024 Minerva Flower , TRUCK RENTAL MANAGER-C Referring Provider Active St art: November 18, 2024 End: November 18, 2024 Chioma Springer NP, TRUCK RENTAL MANAGER-C Attending Provider Active Start: November 18, 2024 End: November 18, 2024 Team Status: Inactive Member Role/Relationship Status Dates Minerva Flower , TRUCK RENTAL MANAGER-C Primary Care Provider Active Start: December 18, 2024 End: December 18, 2024 Minerva Flower , TRUCK RENTAL MANAGER-C Referring Provider Active St art: December 18, 2024 End: December 18, 2024 Dr. María Elena Solomon , DO Attending Provider Activ e Start: December 18, 2024 End: December 18, 2024 Team Status: Inactive Member Role/Relationship Status Dates Minerva Flower , TRUCK RENTAL MANAGER-C Primary Care Provider Active Start: January 06, 2025 End: January 06, 2025 Dr. María Elena Solomon , Attending Provider Activ e Start: January 06, 2025 End: January 06, 2025 Dr. María Elena Solomon DO Referring Provider Activ e Start: January 06, 2025 End: January 06, 2025 Team Status: Inactive Member Role/Relationship Status Dates Minerva Flower , TRUCK RENTAL MANAGER-C Primary Care Provider Active Start: January 06, 2025 End: January 06, 2025 Minerva Flower , TRUCK RENTAL MANAGER-C Referring Provider Active St art: January 06, 2025 End: January 06, 2025 Elle Poe CNM Attending Provider Active S tart: January 06, 2025 End: January 06, 2025 Team Status: Inactive Member Role/Relationship Status Dates Minerva Flower , TRUCK RENTAL MANAGER-C Primary Care Provider Active Start: January 08, 2025 End: January 08, 2025 Dr. María Elena Solomon DO Attending Provider Activ e Start: January 08, 2025 End: January 08, 2025 Dr. María Elena Solomon DO Referring Provider Activ e Start: January 08, 2025 End: January 08, 2025 Team Status: Inactive Member Role/Relationship Status Dates Minerva Flower , TRUCK RENTAL MANAGER-C Primary Care Provider Active Start: January 20, 2025 End: January 20, 2025 Minerva Flower , TRUCK RENTAL MANAGER-C Referring Provider Active St art: January 20, 2025 End: January 20, 2025 Amber Dyer CNM Attending Provider Active Start: January 20, 2025 End: January 20, 2025 Team Status: Inactive Member Role/Relationship Status Dates Minerva Flower , TRUCK RENTAL MANAGER-C Primary Care Provider Active Start: February 03, 2025 End: February 03, 2025 Minerva Flower , TRUCK RENTAL MANAGER-C Referring Provider Active St art: February 03, 2025 End: February 03, 2025 Chioma Springer NP, TRUCK RENTAL MANAGER-C Attending Provider Active Start: February 03, 2025 End: February 03, 2025 Team Status: Inactive Member Role/Relationship Status Dates Minerva Flower , TRUCK RENTAL MANAGER-C Primary Care Provider Active Start: February 03, 2025 End: February 03, 2025 Chioma Springer NP, TRUCK RENTAL MANAGER-C Attending Provider Active Start: February 03, 2025 End: February 03, 2025 Team Status: Inactive Member Role/Relationship Status Dates Minerva Flower , TRUCK RENTAL MANAGER-C Primary Care Provider Active Start: February 18, 2025 End: February 18, 2025 Minerva Flower , TRUCK RENTAL MANAGER-C Referring Provider Active St art: February 18, 2025 End: February 18, 2025 Dr. María Elena Solomon DO Attending Provider Activ e Start: February 18, 2025 End: February 18, 2025 Team Status: Inactive Member Role/Relationship Status Dates Minerva Flower , TRUCK RENTAL MANAGER-C Primary Care Provider Active Start: February 18, 2025 End: February 18, 2025 Dr. María Elena Solomon DO Attending Provider Activ e Start: February 18, 2025 End: February 18, 2025 Team Status: Inactive Member Role/Relationship Status Dates Minerva Flower , TRUCK RENTAL MANAGER-C Primary Care Provider Active Start: February 19, 2025 End: February 19, 2025 Dr. María Elena Solomon DO Attending Provider Activ e Start: February 19, 2025 End: February 19, 2025 Dr. María Elena Solomon DO Referring Provider Activ e Start: February 19, 2025 End: February 19, 2025 Team Status: Active Member Role/Relationship Status Dates Minerva D Flower , TRUCK RENTAL MANAGER-C Primary Care Provider Active Start: February 19, 2025 Dr. María Elena Solomon DO Referring Provider Activ e Start: February 19, 2025 Dr. María Elena Solomon , Other Provider Active Start: February 19, 2025 Elle Poe CNM Attending Provider Active S tart: February 19, 2025 Team Status: Inactive Member Role/Relationship Status Dates Minerva Flower TRUCK RENTAL MANAGER-C Primary Care Provider Active Start: February 20, 2025 End: February 20, 2025 Amber Dyer CNM Attending Provider Active Start: February 20, 2025 End: February 20, 2025 Amber Dyer CNM Referring Provider Active Start: February 20, 2025 End: February 20, 2025 Team Status: Active Member Role/Relationship Status Dates Minerva Flower TRUCK RENTAL MANAGER-C Primary Care Provider Active Start: February 21, 2025 Amber Dyer CNM Attending Provider Active Start: February 21, 2025 Amber Dyer CNM Referring Provider Active Start: February 21, 2025 Amber Dyer CNM Other Provider Active Star t: February 21, 2025 Team Status: Inactive Member Role/Relationship Status Dates Minerva Flower TRUCK RENTAL MANAGER-C Primary Care Provider Active Start: February 26, 2025 End: February 26, 2025 Dr. María Elena Solomon , Attending Provider Activ e Start: February 26, 2025 End: February 26, 2025 Dr. María Elena Solomon DO Referring Provider Activ e Start: February 26, 2025 End: February 26, 2025 Team Status: Active Member Role/Relationship Status Dates Minerva Flower , TRUCK RENTAL MANAGER-C Primary Care Provider Active Start: February 26, 2025 Dr. María Elena Solomon DO Attending Provider Activ e Start: February 26, 2025 Dr. María Elena Solomon DO Referring Provider Activ e Start: February 26, 2025 Dr. María Elena Solomon DO Other Provider Active Start: February 26, 2025 Team Status: Inactive Member Role/Relationship Status Dates Minerva Flower , TRUCK RENTAL MANAGER-C Primary Care Provider Active Start: March 06, 2025 End: March 06, 2025 Minerva Flower TRUCK RENTAL MANAGER-C Referring Provider Active St art: March 06, 2025 End: March 06, 2025 Amber Dyer CNM Attending Provider Active Start: March 06, 2025 End: March 06, 2025 Team Status: Inactive Member Role/Relationship Status Dates Minerva Flower , TRUCK RENTAL MANAGER-C Primary Care Provider Active Start: March 11, 2025 End: March 11, 2025 Minerva Flower , TRUCK RENTAL MANAGER-C Referring Provider Active St art: March 11, 2025 End: March 11, 2025 Dr. Radha Peters MD Attending Provider Active Start: March 11, 2025 End: March 11, 2025 Team Status: Inactive Member Role/Relationship Status Dates Minerva Flower , TRUCK RENTAL MANAGER-C Primary Care Provider Active Start: March 11, 2025 End: March 11, 2025 Dr. Radha Peters MD Attending Provider Active Start: March 11, 2025 End: March 11, 2025 Team Status: Inactive Member Role/Relationship Status Dates Minerva Flower , TRUCK RENTAL MANAGER-C Primary Care Provider Active Start: December 18, 2024 End: December 18, 2024 Minerva Flower , TRUCK RENTAL MANAGER-C Referring Provider Active St art: December 18, 2024 End: December 18, 2024 Dr. María Elena Solomon DO Attending Provider Activ e Start: December 18, 2024 End: December 18, 2024 Team Status: Inactive Member Role/Relationship Status Dates Minerva Flower , TRUCK RENTAL MANAGER-C Primary Care Provider Active Start: January 06, 2025 End: January 06, 2025 Dr. María Elena Solomon DO Attending Provider Activ e Start: January 06, 2025 End: January 06, 2025 Dr. María Elena Solomon DO Referring Provider Activ e Start: January 06, 2025 End: January 06, 2025 Team Status: Inactive Member Role/Relationship Status Dates Minerva Flower , TRUCK RENTAL MANAGER-C Primary Care Provider Active Start: January 06, 2025 End: January 06, 2025 Minerva Flower , TRUCK RENTAL MANAGER-C Referring Provider Active St art: January 06, 2025 End: January 06, 2025 Elle Poe CNM Attending Provider Active S tart: January 06, 2025 End: January 06, 2025 Team Status: Inactive Member Role/Relationship Status Dates Minerva Flower , TRUCK RENTAL MANAGER-C Primary Care Provider Active Start: January 08, 2025 End: January 08, 2025 Dr. María Elena Solomon , Attending Provider Activ e Start: January 08, 2025 End: January 08, 2025 Dr. María Elena Solomon , Referring Provider Activ e Start: January 08, 2025 End: January 08, 2025 Team Status: Inactive Member Role/Relationship Status Dates Minerva Flower , TRUCK RENTAL MANAGER-C Primary Care Provider Active Start: January 20, 2025 End: January 20, 2025 Minerva Flower , TRUCK RENTAL MANAGER-C Referring Provider Active St art: January 20, 2025 End: January 20, 2025 Amber Dyer CNM Attending Provider Active Start: January 20, 2025 End: January 20, 2025 Team Status: Inactive Member Role/Relationship Status Dates Minerva Flower , TRUCK RENTAL MANAGER-C Primary Care Provider Active Start: February 03, 2025 End: February 03, 2025 Minerva Flower , TRUCK RENTAL MANAGER-C Referring Provider Active St art: February 03, 2025 End: February 03, 2025 Chioma Springer NP, TRUCK RENTAL MANAGER-C Attending Provider Active Start: February 03, 2025 End: February 03, 2025 Team Status: Inactive Member Role/Relationship Status Dates Minerva Flower , TRUCK RENTAL MANAGER-C Primary Care Provider Active Start: February 03, 2025 End: February 03, 2025 Chioma Springer NP, TRUCK RENTAL MANAGER-C Attending Provider Active Start: February 03, 2025 End: February 03, 2025 Team Status: Inactive Member Role/Relationship Status Dates Minerva Flower , TRUCK RENTAL MANAGER-C Primary Care Provider Active Start: February 18, 2025 End: February 18, 2025 Minerva Flower , TRUCK RENTAL MANAGER-C Referring Provider Active St art: February 18, 2025 End: February 18, 2025 Dr. María Elena Solomon , DO Attending Provider Activ e Start: February 18, 2025 End: February 18, 2025 Team Status: Inactive Member Role/Relationship Status Dates Minerva Flower , TRUCK RENTAL MANAGER-C Primary Care Provider Active Start: February 18, 2025 End: February 18, 2025 Dr. María Elena Solomon , DO Attending Provider Activ e Start: February 18, 2025 End: February 18, 2025 Team Status: Inactive Member Role/Relationship Status Dates Minerva Flower TRUCK RENTAL MANAGER-C Primary Care Provider Active Start: February 19, 2025 End: February 19, 2025 Dr. María Elena Solomon , Attending Provider Activ e Start: February 19, 2025 End: February 19, 2025 Dr. María Elena Solomon DO Referring Provider Activ e Start: February 19, 2025 End: February 19, 2025 Team Status: Active Member Role/Relationship Status Dates Minerva Flower TRUCK RENTAL MANAGER-C Primary Care Provider Active Start: February 19, 2025 Dr. María Elena Solomon DO Referring Provider Activ e Start: February 19, 2025 Dr. María Elena Solomon , Other Provider Active Start: February 19, 2025 Elle Poe CNM Attending Provider Active S tart: February 19, 2025 Team Status: Inactive Member Role/Relationship Status Dates Minerav Flower TRUCK RENTAL MANAGER-C Primary Care Provider Active Start: February 20, 2025 End: February 20, 2025 Amber Dyer CNM Attending Provider Active Start: February 20, 2025 End: February 20, 2025 Amber Dyer CNM Referring Provider Active Start: February 20, 2025 End: February 20, 2025 Team Status: Active Member Role/Relationship Status Dates Minerva Flower TRUCK RENTAL MANAGER-C Primary Care Provider Active Start: February 21, 2025 Amber Dyer CNM Attending Provider Active Start: February 21, 2025 Amber Dyer CNM Referring Provider Active Start: February 21, 2025 Amber Dyer CNM Other Provider Active Star t: February 21, 2025 Team Status: Inactive Member Role/Relationship Status Dates Minerva Flower TRUCK RENTAL MANAGER-C Primary Care Provider Active Start: February 26, 2025 End: February 26, 2025 Dr. María Elena Solomon DO Attending Provider Activ e Start: February 26, 2025 End: February 26, 2025 Dr. María Elena Solomon DO Referring Provider Activ e Start: February 26, 2025 End: February 26, 2025 Team Status: Active Member Role/Relationship Status Dates Minerva Flower TRUCK RENTAL MANAGER-C Primary Care Provider Active Start: February 26, 2025 Dr. María Elena Solomon DO Attending Provider Activ e Start: February 26, 2025 Dr. María Elena Solomon , Referring Provider Activ e Start: February 26, 2025 Dr. María Elena Solomon , Other Provider Active Start: February 26, 2025 Team Status: Inactive Member Role/Relationship Status Dates Minerva D Flower , TRUCK RENTAL MANAGER-C Primary Care Provider Active Start: March 06, 2025 End: March 06, 2025 Minerva Kolby Flower , TRUCK RENTAL MANAGER-C Referring Provider Active St art: March 06, 2025 End: March 06, 2025 Amber Dyer CNM Attending Provider Active Start: March 06, 2025 End: March 06, 2025 Team Status: Inactive Member Role/Relationship Status Dates Minerva D Torres , TRUCK RENTAL MANAGER-C Primary Care Provider Active Start: March 11, 2025 End: March 11, 2025 Minerva D Torres , TRUCK RENTAL MANAGER-C Referring Provider Active St art: March 11, 2025 End: March 11, 2025 Dr. Radha Peters MD Attending Provider Active Start: March 11, 2025 End: March 11, 2025 Team Status: Inactive Member Role/Relationship Status Dates Minerva D Flower , TRUCK RENTAL MANAGER-C Primary Care Provider Active Start: March 11, 2025 End: March 11, 2025 Dr. Radha Peters MD Attending Provider Active Start: March 11, 2025 End: March 11, 2025 Team Status: Inactive Member Role/Relationship Status Dates Minerva D Flower , TRUCK RENTAL MANAGER-C Primary Care Provider Active Start: March 19, 2025 End: March 19, 2025 Minerva Kolby Flower , TRUCK RENTAL MANAGER-C Referring Provider Active St art: March 19, 2025 End: March 19, 2025 Dr. María Elena Solomon DO Attending Provider Activ e Start: March 19, 2025 End: March 19, 2025 Team Status: Inactive Member Role/Relationship Status Dates Minerva D Flower , TRUCK RENTAL MANAGER-C Primary Care Provider Active Start: March 19, 2025 End: March 19, 2025 Dr. María Elena Solomon DO Attending Provider Activ e Start: March 19, 2025 End: March 19, 2025 Dr. María Elena Solomon DO Referring Provider Activ e Start: March 19, 2025 End: March 19, 2025 Team Status: Inactive Member Role/Relationship Status Dates Minerva D Flower , TRUCK RENTAL MANAGER-C Primary Care Provider Active Start: March 25, 2025 End: March 25, 2025 AMEE Quinteros Referring Provider Active St art: March 25, 2025 End: March 25, 2025 Dr. Radha Peters MD Attending Provider Active Start: March 25, 2025 End: March 25, 2025 Goals (unrecognized section and content) Goals [...] BE BASED ON THE PRIMARY CLINICAL RECORDS. [facility]. provides no warranty or guarantee of the accuracy or completeness of information in this document.
[2025-03-30] MEDS: Lactated Ringers 1,000 ML 999 ML IV (05:35)
[2025-03-30 06:10] LABS: Hematocrit 35.8 % (37-47); Hemoglobin 11.8 g/dL (12.0-15.0); Immature Granulocytes Count 0.190 X10^3/uL (0.0-0.0); Mean Corp Hgb Conc 33.0 g/dL (32-36); Mean Corpuscular Volume 89.1 fL (81-99); Mean Platelet Vol. 12.4 fl (6.2-12.0); NRBC Flagged by Analyzer 0 % (0-5); Platelet Count 226 K/mm3 (150-450); RBC Distribution Width CV 15.5 % (11.6-14.6); RBC Distribution Width SD 50.7 fl (35.1-43.9); Red Blood Count 4.02 M/mm3 (4.2-5.4); White Blood Count 14.5 K/mm3 (4.4-11.0)
[2025-03-30] MEDS: Lactated Ringers 1,000 ML 150 ML IV (06:35)
--- NOTE | 2025-03-30 06:41 | HP.PCM.OB_ITS ---
HPI - General General Date of Admission: 03/30/25 HPI Narrative MADDIE GABRIEL, is a 24 F who presents for primary low transverse secondary to breech presentation. she has had an otherwise uncomplicated . Maternal Data Information ITZEL Calculator Estimated Delivery Date Method Current WG Current Estimate 04/06/25 Ultrasound #1 39w 0d Other Estimates 03/30/25 LMP (Certain) 40w 0d PFSH PFS Medical History (Updated 03/30/25 @ 05:52 by Maddie Florentino) Chlamydia infection affecting Spontaneous Home Medications ?Medication ?Instructions ?Recorded ?Last Taken ?Type ferrous sulfate 137 mg (45 mg 137 mg PO QDAY anemia 03/29/25 History iron) tablet,extended release (Slow Fe) famotidine 20 mg tablet (Pepcid AC) 20 mg PO BID heart burn 02/18/25 03/29/25 History PNV 153-FA 400 mcg-om3 35 mg-dha 1 tab PO DAILY pregna ncy 02/19/25 03/29/25 History 25 mg-epa 5 mg-fish oil chew tablet ( Gummies) Allergy/AdvReac Type Severity Reaction Status Date / Time No Known Allergies Allergy Verified 03/30/25 05:33 Family History Grandmother Cancer Lung-Maternal Aunt Cancer Pancreatic- Maternal Surgical History (Updated 03/30/25 @ 05:52 by Maddie Florentino) History of surgery Social History adopted: No household members: spouse current occupational status: employed 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 current occupational exposures/hazards: No pets and animals: Yes ( taking care of litterbox) pets and animals: cat(s) and fish history of recent travel: No sexually active: Yes Smoking Status: Never smoker alcohol intake: current alcohol intake frequency: holidays/special occasions only details: None while substance use type: former substance user Date of last use: Age 16 experimented and marijuana diet: other well-balanced diet: daily or most days caffeine: No eating out: 1-3 times/week during the past year weight has: remained stable what type of physical activity do you participate in: none seatbelt use: always do you feel safe at home: Yes additional social history: : Otoniel- [employer] History 2 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 Date Name GA/Weeks Outcome Route Bth Weight Infant Gen Labor Lgth Anesthesia Del Harrisonatn Provider FOB 01/09/24 5 spontaneous Visit Details Expected Delivery Route/Plan LTCS Labor Preferences- CB/BF classes: encouraged labor support person: Otoniel labor intervention preferences: [] pain management options preferred: limited! cut cord/dad catch: yes : yes PP control planned: discussed discussed possible routes of delivery and associated risks: [] special requests: [] Plans Covid status: [] Flu vaccine: [] Tdap vaccine: declined Rhogam: na LARC form signed: yes Problem list reviewed and updated with the most current plan of care details and appropriate orders placed. Relevant counseling for the gestational age provided. Continue routine care and follow up unless otherwise noted in visit notes/problem list details OB Flowsheet Initial Weight: 166 lb Date -?-?-?-?-?-?-?-?-?-?-?-?- EGA Weight BP Urine Prot -?-?-?-?-?-?-?-?-?-?-?-?- Glucose FHR FuHt Pres Dilation -?-?-?-?-?-?-?-?-?-?-?-?- Effaced St Visit Note 08/22/24 -?-?-?-?-?-?-?-?-?-?-?-?- 7w 4d 120 lb (-46 lb) 120/86 -?-?-?-?-?-?-?-?-?-?-?-?- 153 -?-?-?-?-?-?-?-?-?-?-?-?- KW- CRL cons wit h dates. declines NIPT. has US appt after today. declined pap today. 09/23/24 -?-?-?-?-?-?-?-?-?-?-?-?- 12w 1d 167 lb (+16 oz) 119/81 Negative -?-?-?-?-?-?-?-?-?-?-?-?- Negative 150 -?-?-?-?-?-?-?-?-?-?-?-?- SM- no vb crampi ng 10/22/24 -?-?-?-?-?-?-?-?-?-?-?-?- 16w 2d 172 lb 4 oz (+6 lb 4 oz) 118/74 Negative -?-?-?-?-?-?-?-?-?-?-?-?- Negative 145 -?-?-?-?-?-?-?-?-?-?-?-?- MH-No VB. No FM yet. Anatomy US 11/10. Urine GCC today 11/18/24 -?-?-?-?-?-?-?-?-?-?-?-?- 20w 1d 177 lb 2 oz (+11 lb 2 oz) 114/72 Negative -?-?-?-?-?-?-?-?-?-?-?-?- Negative 147 -?-?-?-?-?-?-?-?-?-?-?-?- MH-No VB. Nausea improved. Good FM. 12/18/24 -?-?-?-?-?-?-?-?-?-?-?-?- 24w 3d 181 lb 6 oz (+15 lb 6 oz) 112/77 Negative -?-?-?-?-?-?-?-?-?-?-?-?- Negative 145 -?-?-?-?-?-?-?-?-?-?-?-?- JV- no lof, vagi nal bleeding, or dec fm. no complaints. 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 01/06/25 -?-?-?-?-?-?-?-?-?-?-?-?- 27w 1d 188 lb 6 oz (+22 lb 6 oz) 131/86 Negative -?-?-?-?-?-?-?-?-?-?-?-?- Negative 150 28 -?-?-?-?-?-?-?-?-?-?-?-?- kw- no vb/lof/ct x. good fm. glucose today. tdap and larc declined 01/20/25 -?-?-?-?-?-?-?-?-?-?-?-?- 29w 1d 190 lb (+24 lb) 115/75 Negative -?-?-?-?-?-?-?-?-?-?-?-?- Negative 134 30 -?-?-?-?-?-?-?-?-?-?-?-?- LC- no vb/ctx/lo f. good fm. neg glucola. LC- no vb/ctx/lof. good fm. neg glucola. chart reviewed. MFM growth normal, due date should be 04/06/2025 based on 1st trimester us. cw SM agrees with due date change. pt informed of new due date of 04/06/2025 02/03/25 -?-?-?-?-?-?-?-?-?-?-?-?- 31w 1d 193 lb 6 oz (+27 lb 6 oz) 108/80 Negative -?-?-?--?-?-?-?-?-?-?-?-?- Negative 142 32 -?-?-?-?-?-?-?-?-?-?-?-?- MH-No Vb, LOF. G ood FM. rpt CBC today. 02/18/25 -?-?-?-?-?-?-?-?-?-?-?-?- 33w 2d 196 lb (+30 lb) 113/76 Negative -?-?-?-?-?-?-?-?-?-?-?-?- Negative 143 32 0 -?-?-?-?-?-?-?-?-?-?-?-?- JV- pt complains of cramping that is getting worse over the last couple of days. on exam there is some thick white discahrge, no odor, no fluid, or bleeding. cx closed. red top collected. collecting UA and culture. 03/06/25 -?-?-?-?-?-?-?-?-?-?-?-?- 35w 4d 200 lb 4 oz (+34 lb 4 oz) 122/81 Negative -?-?-?-?-?-?-?-?-?-?-?-?- Negative 145 36 Breech -?-?-?-?-?-?-?-?-?-?-?-?- LC- no vb/ctx/lo f. good fm. declines ECV, desires primary cs 03/11/25 -?-?-?-?-?-?-?-?-?-?-?-?- 36w 2d 198 lb 4 oz (+32 lb 4 oz) 123/85 -?-?-?-?-?-?-?-?-?-?-?-?- 140 38 Breech -?-?-?-?-?-?-?-?-?-?-?-?- SM- no vb lof go od fm no reuglar ctx gbs done need gcc next visit, wasn't done today 03/19/25 -?-?-?-?-?-?-?-?-?-?-?-?- 37w 3d 201 lb (+35 lb) 117/79 Negative -?-?-?-?-?-?-?-?-?-?-?-?- Negative 147 37 Breech 1 -?-?-?-?-?-?-?-?-?-?-?-?- 0 -4 JV- no lof , vaginal bleeding, or dec fm. JV- no lof, vaginal bleeding , or dec fm. gc/ct collected. 03/25/25 -?-?-?-?-?-?-?-?-?-?-?-?- 38w 2d 203 lb (+37 lb) 114/79 Negative -?-?-?-?-?-?-?-?-?-?-?-?- Negative 145 39 Breech -?-?-?-?-?-?-?-?-?-?-?-?- SM- no vb lof go od f,m no regular ctx NST FHR Rate Baby A Baseline: 130 Variability:: Moderate Accelerations:: 15 x 15 Decelerations:: None NST Reactive:: Yes FHR Category:: Category I Uterine Activity:: irregular ROS Constitutional Constitutional: Reports systems reviewed and no addt'l complaints, except as documented Eyes Eyes: Denies change in vision ENT HEENT: Reports systems reviewed and no addt'l complaints, except as documented; Denies headache(s) Cardiovascular Cardiovascular: Reports systems reviewed and no addt'l complaints, except as documented; Denies chest pain or dyspnea Respiratory/Chest Respiratory/Chest: Reports systems reviewed and no addt'l complaints, except as documented Gastrointestinal Gastrointestinal: Reports systems reviewed and no addt'l complaints, except as documented; Denies abdominal pain Genitourinary Genitourinary: Reports systems reviewed and no addt'l complaints, except as documented, contractions Details: present (irregular) and movement Details: present; Denies dysuria or genital lesions Musculoskeletal Musculoskeletal: Reports systems reviewed and no addt'l complaints, except as documented Neurologic Neurologic: Reports systems reviewed and no addt'l complaints, except as documented Endocrine Endocrinology: Reports systems reviewed and no addt'l complaints, except as documented Vital Signs Vital Signs Vital Signs: 03/30/25 05:27 03/30/25 05:27 03/30/25 05:27 Temperature Temperature Source Pulse Rate 108 H Respiratory Rate Blood Pressure 117/73 Blood Pressure Mean BP Systolic 117 BP Diastolic 73 Blood Pressure Source Blood Pressure Position Blood Pressure Location Pulse Ox 97 Oxygen Delivery Method 03/30/25 05:41 03/30/25 05:41 03/30/25 05:41 Temperature Temperature Source Temporal Pulse Rate 107 H Respiratory Rate Blood Pressure 117/73 Blood Pressure Mean BP Systolic 117 BP Diastolic 73 Blood Pressure Source Blood Pressure Position Blood Pressure Location Pulse Ox Oxygen Delivery Method 03/30/25 05:41 03/30/25 05:41 03/30/25 05:41 Temperature 97.1 F L Temperature Source Pulse Rate Respiratory Rate 16 Blood Pressure Blood Pressure Mean BP Systolic BP Diastolic Blood Pressure Source Blood Pressure Position Blood Pressure Location Pulse Ox 97 Oxygen Delivery Method 03/30/25 05:54 Temperature 97.1 F L Temperature Source Temporal Pulse Rate 107 H Respiratory Rate 16 Blood Pressure 117/73 Blood Pressure Mean 87 BP Systolic BP Diastolic Blood Pressure Source Monitor Blood Pressure Position Sitting Blood Pressure Location Right Arm Pulse Ox 97 Oxygen Delivery Method Room Air Weight Weight: 205 lb Body Mass Index (BMI) 37.5 Physical Exam Const alert, oriented x3, no apparent distress and healthy appearing HEENT normocephalic and moist oral mucous membranes Head and Scalp: atraumatic Neck full ROM, no lymphadenopathy, supple and thyroid normal General: trachea midline Lymph Lymphatic: no lymphadenopathy noted Chest inspection of chest normal Resp normal respiratory effort Cardio regular rate GI soft to palpation and non-tender GI Narrative: gravid Inspection: gravid external exam normal Manual OB Exam: estimated gestational size appropriate, presentation breech, dilated, effaced and station Extremity normal to inspection General Extremity: Negative for edema Skin no rashes or lesions noted Neuro no focal motor deficits and deep tendon reflexes 2+ bilaterally Motor Exam: strength 5/5 throughout and clonus absent Psych mental status grossly normal Labs Labs Labs: Blood Type O POSITIVE Antibody Screen NEGATIVE Hct 35.8 % (37-47) L Hgb 11.8 g/dL (12.0-15.0) L Obstetrics Ultrasound Syphilis Total Ab Nonreactive (Nonreactive) Rubella IgG Antibody Reactive (Nonreactive) Hep Bs Antigen Non-Reactive (Nonreactive) Hepatitis C Antibody Non-Reactive (Nonreactive) Chlamydia DNA (SHAYLEE) Negative (Negative) N.gonorrhoeae DNA (SHAYLEE) Negative (Negative) HIV 1&2 Antibody Nonreactive (Nonreactive) Glucose 1 Hr 50 gm 126 mg/dL (70-140) Assessment & Plan (1) Breech presentation: COMMENT: desires primary c/s. discussed and declines ECV, C/S 03/30 @ 0715. (2) Anemia in preg-unspec: QUALIFIERS: Trimester: third trimester Qualified Code(s): O99.013 - Anemia complicating , third trimester (3) Chlamydia infection during : COMMENT: 08/26/24 azithromycin sent; 10/22/24 rpt culture:negative repeat culture at 36 weeks with the GBS (4) Family history of hemochromatosis: COMMENT: Pt tested and is NEGATIVE (5) Vegetarian diet: COMMENT: x8 years - recently started eating some meat since (6) Obesity affecting : QUALIFIERS: Obesity type affecting : unspecified obesity Trimester: second trimester Qualified Code(s): O99.212 - Obesity complicating , second trimester COMMENT: BMI 30.4, HgBA1C normal (7) H/O miscarriage, currently : COMMENT: January 2024 (8) Supervision of high-risk : QUALIFIERS: Trimester: third trimester Qualified Code(s): O09.93 - Supervision of high risk , unspecified, third trimester COMMENT: PRR , ITZEL 04/06/25, indie boy : Otoniel (9) : QUALIFIERS: Weeks of gestation: 38 weeks Qualified Code(s): Z3A.38 - 38 weeks gestation of COMMENT: Neg GBS. NIPT low risk, Choroid plexus cysts. PLAN: Plan plan primary low transverse section
[2025-03-30 07:02] LABS: Syphilis Antibodies Nonreactive (Nonreactive)
--- NOTE | 2025-03-30 07:19 | OP.PCM_ITS ---
Assessment & Plan (1) Breech presentation: COMMENT: desires primary c/s. discussed and declines ECV, C/S 03/30 @ 0715. (2) Anemia in preg-unspec: QUALIFIERS: Trimester: third trimester Qualified Code(s): O99.013 - Anemia complicating , third trimester (3) Chlamydia infection during : COMMENT: 08/26/24 azithromycin sent; 10/22/24 rpt culture:negative repeat culture at 36 weeks with the GBS (4) Family history of hemochromatosis: COMMENT: Pt tested and is NEGATIVE (5) Vegetarian diet: COMMENT: x8 years - recently started eating some meat since (6) Obesity affecting : QUALIFIERS: Trimester: second trimester Obesity type affecting : unspecified obesity Qualified Code(s): O99.212 - Obesity complicating , second trimester COMMENT: BMI 30.4, HgBA1C normal (7) H/O miscarriage, currently : COMMENT: January 2024 (8) Supervision of high-risk : QUALIFIERS: Trimester: third trimester Qualified Code(s): O09.93 - Supervision of high risk , unspecified, third trimester COMMENT: PRR , ITZEL 04/06/25, indie boy : Otoniel (9) : QUALIFIERS: Weeks of gestation: 38 weeks Qualified Code(s): Z3A.38 - 38 weeks gestation of COMMENT: Neg GBS. NIPT low risk, Choroid plexus cysts. (10) delivery delivered: COMMENT: ltcs sm 39 breech boy sumaya Maternal Data Information ITZEL Calculator Estimated Delivery Date Method Current WG Current Estimate 04/06/25 Ultrasound #1 39w 0d Other Estimates 03/30/25 LMP (Certain) 40w 0d Final ITZEL Source: LMP Operative Report (OB) Details Procedure Type: low transverse Date of Procedure: 03/30/25 Procedure Start Time: 07:35 Pre-Operative Diagnosis: Other Other Pre-Operative diagnosis: see a/p comments Post-Operative Diagnosis: Same as Pre-operative diagnosis Classification: Scheduled Type of Anesthesia: Spinal Special Medications: none Antibiotic Given: Ancef 2 grams IV x1 Drain: Alcaraz to straight drain Estimated Blood Loss: 600 Fluids Replaced: crystalloid Findings Description of surgery: Spinal anesthesia was placed without difficulty. Alcaraz catheter was placed. The patient was placed in the dorsal supine position with leftward tilt. Patient was prepped and draped in the normal sterile fashion. Pfannenstiel skin incision was made with the scalpel and carried through to the underlying layer of fascia with the scalpel. Fascia was nicked in the midline and the incision extended laterally. The rectus bellies were dissected off superiorly and inferiorly with out complication both sharply and bluntly. The peritoneum was entered digitally. The incision was stretched and a low transverse uterine incision was made with the scalpel. The buttox was delivered atraumatically and the right and left legs were swept anteriorly and delivered, followed by the body and the arms which were swept anteriorly and delivered. Gentle traction was placed on the mentum to flex the head which was delivered without complication. The cord was clamped and cut and the infant was handed off to awaiting nurse. The placenta was delivered spontaneously immediately following and was noted to be intact and have a three-vessel cord. The uterus was exteriorized cleared of all clots and debris, and the incision was closed in a single layer closure using #1 Monocryl. The ovaries and fallopian tubes were noted to be within normal limits. The uterus was returned to the maternal abdomen and gutters were cleared of all clots and debris. The peritoneum was closed with 3-0 Monocryl in a running fashion. Gloves were changed prior to fascial closure. Fascia was closed with 0 PDS in a running fashion. Subcutaneous tissue was copiously irrigated and the skin was closed with 3-0 Monocryl in a subcuticular fashion. Mepilex dressing was applied without complication. Patient was taken to recovery in stable condition. It was discussed with the patient that based on the clinical information obtained during this encounter, combined with her history, at this time I would recommend vaginal or for future deliveries if further pregnancies are desired. Surgical findings: nl uterus tubes ovaries Presentation: Vertex Amniotic Membrane Rupture Type: Artificial Amniotic Fluid Description: Clear Specimen collected: Yes Description of specimen(s) removed: placenta and baby Cord Vessel Description: 3 Vessels Delayed Cord Clamping: Yes Floor Steward/Stewardess capsule inspector: Yes Division Traffic Superintendent: Sally Davidson Tasks completed by first officer and flight instructor: Opening & closing, Retracting and Other (assisting in delivery of the infant) Additional certified registered dental assistant?: No Complications Complications: No Admit VTE Documentation VTE Present on Admission: No VTE Mechan Device Prophylaxis: SCD's Procedures Urinary/Genital [id number]-59xxx: [id number] Delivery global pkg
--- NOTE | 2025-03-30 08:40 | PCM.DC ---
Discharge Instructions DC O2, CPAP, BIPAP needs Home O2 Discharge instructions: No Dressing / Incision Discharge Activity: May Not Drive (for 2 weeks or while taking narcotic pain medications.), May Shower and May Take a Tub Bath (in 7 days) May shower in (days): 0 May resume sexual activity in: 4-6 weeks Weight Bearing Status: Full weight bearing Lifting Restrictions: 20 pounds Dressing / Incision Call your doctor if your incision/area has: Continuous Slow Oozing, Sudden Increased Bleeding, Increased Pain/ Swelling, Increased Redness and Foul Smelling Discharge Call your doctor if you observe: Fever of 101 or Higher and Using more than 1 pad per hour (for 2 hours) Suture Line Care: Avoid Pulling/Pushing and Avoid Pinching/Bending Cleanse incision/area with: Soap & Water and Keep Dressing Clean & Dry Follow Up Care Please Follow Up With: Radha Peters MD When: Call [phone] to make an appointment for an incision check in 1-2 weeks. Test Results: Test results from this visit will be discussed in further detail at your follow-up appointment, if applicable. Discharge Plan Admission Admit Date/Time: 03/30/25 05:10 Attending Provider: Radha Peters Primary Care Provider: Minerva Macdonald Discharge Orders/Prescriptions Prescriptions: No Action Slow Fe 137 mg (45 mg iron) tablet extended release 137 mg PO QDAY famotidine [Pepcid AC] 20 mg tablet 20 mg PO BID Gummies 400 mcg-35 mg- 25 mg-5 mg tablet,chewable 1 tab PO DAILY Referrals / Follow Up: Minerva Macdonald, REPAIR [employer]LECT[employer]SEMBLER[employer] [Primary Care Provider] -
[2025-03-30] MEDS: Oxytocin 15 Units/NS 250ml 15 UNITS/250 ML IV.SOLN 83 UNITS IV (08:45)
[2025-03-30] MEDS: Ketorolac 30 MG/ML Syringe IV ×3 (09:54→21:12)
[2025-03-30] MEDS: Senna/Docusate Sodium 1 Tablet PO (11:45)
[2025-03-30] MEDS: Lactated Ringers 1,000 ML 100 ML IV (12:17)
[2025-03-31] MEDS: Ketorolac 30 MG/ML Syringe IV (03:09)
[2025-03-31 03:26] VITALS: BP 101/62; PULSE 64; RESP 16; TEMP 36.1; O2SAT 98
[2025-03-31 06:18] LABS: Hematocrit 30.2 % (37-47); Hemoglobin 9.9 g/dL (12.0-15.0); Mean Corp Hgb Conc 32.8 g/dL (32-36); Mean Corpuscular Volume 90.1 fL (81-99); Mean Platelet Vol. 12.4 fl (6.2-12.0); Platelet Count 204 K/mm3 (150-450); RBC Distribution Width CV 15.7 % (11.6-14.6); RBC Distribution Width SD 52.0 fl (35.1-43.9); Red Blood Count 3.35 M/mm3 (4.2-5.4); White Blood Count 17.2 K/mm3 (4.4-11.0)
--- NOTE | 2025-03-31 07:23 | PCM.PN.OB ---
Subjective Subjective Patient doing well without complaints. Tolerating PO. Ambulating and voiding without difficulty. feeding well. Denies chest pain, shortness of breath, calf pain/swelling, fevers, chills, lightheadedness. Objective Data Objective Data Vital Signs: Vital Signs Temp Pulse Resp BP Pulse Ox O2 Del Method 97.0 F L 64 16 101/62 98 Room Air 03/31/25 03:26 03/31/25 03:26 03/31/25 03:26 03/31/25 03:26 03/31/25 03:26 03/31/25 03:26 Oxygen Delivery Method Room Air Weight: 205 lb Body Mass Index (BMI) 37.5 Intake & Output: Intake and Output for Last 24 Hours 03/29/25 03/30/25 03/31/25 23:59 23:59 23:59 Intake Total 3951.67 / 3951.67 Output Total 2140 / 2140 1400 / 1400 Balance 1811.67 / 1811.67 -1400 / -1400 Lab / Micro Data 03/31/25 06:00 Labs: Laboratory Results - last 24 hr 03/30/25 05:35: Blood Type O POSITIVE, Antibody Screen NEGATIVE 03/31/25 06:00: WBC 17.2 H, RBC 3.35 L, Hgb 9.9 L, Hct 30.2 L, MCV 90.1, MCH 29.6, MCHC 32.8, RDW Std Deviation 52.0 H, RDW Coeff of Vern 15.7 H, Plt Count 204, MPV 12.4 H ROS Constitutional Constitutional: Reports systems reviewed and no addt'l complaints, except as documented Cardiovascular Cardiovascular: Reports systems reviewed and no addt'l complaints, except as documented Respiratory/Chest Respiratory/Chest: Reports systems reviewed and no addt'l complaints, except as documented Gastrointestinal Gastrointestinal: Reports systems reviewed and no addt'l complaints, except as documented Physical Exam Const alert, oriented x3 and no apparent distress HEENT Head and Scalp: atraumatic Resp normal respiratory effort GI soft to palpation and non-tender Inspection: incision intact, healing well and drainage (none) Bimanual Exam - Vag & Uterus: uterus non-tender Uterus Palpation: uterus fundus firm (below Umbilicus) Assessment & Plan (1) delivery delivered: COMMENT: ltcs sm 39 breech boy indie PLAN: Plan s/p LTCS PPD # 1 1. routine post care 2. breast feeding- support given 3. rh positive 4. rubella immune
[2025-03-31 07:50] VITALS: BP 94/61; PULSE 64; RESP 16; TEMP 36.2; O2SAT 96
[2025-03-31] MEDS: Senna/Docusate Sodium 1 Tablet PO (10:11)
[2025-03-31 12:20] VITALS: BP 113/67; PULSE 76; RESP 16; TEMP 36.6; O2SAT 97
--- NOTE | 2025-03-31 15:05 | NURSING ---
student charting reviewed
[2025-03-31 15:24] VITALS: BP 110/65; PULSE 82; RESP 16; TEMP 36.2; O2SAT 97
[2025-03-31 20:00] VITALS: BP 97/62; PULSE 68; RESP 3; TEMP 36.4; O2SAT 97
[2025-04-01 02:01] VITALS: BP 118/80; PULSE 97; RESP 14; TEMP 36.4; O2SAT 97
--- NOTE | 2025-04-01 06:09 | PCM.PN.OB ---
Subjective Subjective Patient doing well without complaints. Tolerating PO. Ambulating and voiding without difficulty. feeding well. Denies chest pain, shortness of breath, calf pain/swelling, fevers, chills, lightheadedness. Objective Data Objective Data Vital Signs: Vital Signs Temp Pulse Resp BP Pulse Ox O2 Del Method 97.5 F L 97 14 118/80 97 Room Air 04/01/25 02:01 04/01/25 02:01 04/01/25 02:01 04/01/25 02:01 04/01/25 02:01 04/01/25 02:01 Oxygen Delivery Method Room Air Weight: 205 lb Body Mass Index (BMI) 37.5 Intake & Output: Intake and Output for Last 24 Hours 03/30/25 03/31/25 04/01/25 23:59 23:59 23:59 Intake Total 3951.67 / 3951.67 Output Total 2140 / 2140 1400 / 1400 Balance 1811.67 / 1811.67 -1400 / -1400 Lab / Micro Data 03/31/25 06:00 Labs: Laboratory Results - last 24 hr 03/31/25 06:00: WBC 17.2 H, RBC 3.35 L, Hgb 9.9 L, Hct 30.2 L, MCV 90.1, MCH 29.6, MCHC 32.8, RDW Std Deviation 52.0 H, RDW Coeff of Vern 15.7 H, Plt Count 204, MPV 12.4 H ROS Constitutional Constitutional: Reports systems reviewed and no addt'l complaints, except as documented Cardiovascular Cardiovascular: Reports systems reviewed and no addt'l complaints, except as documented Respiratory/Chest Respiratory/Chest: Reports systems reviewed and no addt'l complaints, except as documented Gastrointestinal Gastrointestinal: Reports systems reviewed and no addt'l complaints, except as documented Physical Exam Const alert, oriented x3 and no apparent distress HEENT Head and Scalp: atraumatic Resp normal respiratory effort GI soft to palpation and non-tender Inspection: incision intact, healing well and drainage (none) Bimanual Exam - Vag & Uterus: uterus non-tender Uterus Palpation: uterus fundus firm (below Umbilicus) Assessment & Plan (1) delivery delivered: COMMENT: ltcs sm 39 breech boy indie PLAN: Plan s/p LTCS PPD # 2 1. routine post care 2. breast feeding- support given 3. rh positive 4. rubella immune
[2025-04-01 07:45] VITALS: BP 115/79; PULSE 75; RESP 16; TEMP 36.1; O2SAT 98
--- NOTE | 2025-04-01 10:53 | CASEMGMT ---
Social Work Assessment Labor and Delivery Unit Patient Address:[address] [place] [id number] Phone number: [phone] Date of Referral: 03/30/25 Time of Referral:? [phone] Referred By: Dr. Peters Date of Intervention: ??03/31/25 Time of Intervention:? 1419 Reason for Referral:? pt's father is an alcohol Sw completed chart review and acknowledges social work consult. Sw presented to bedside and introduced self to mother of baby (MOB- Charlee) and father of baby (FOB- Otoniel). Also present, was maternal grandmother. MOB states that it is okay for sw to complete assessment with grandmother present. Sw completed assessment. History obtained from: medical records, MOB and FOB Household composition: Currently residing in the family home is MOB and FOB. [place] baby to be included in residence when ready for discharge. Parents deny any problems or concerns with housing, stating that it is safe and secure. Patient's parent/guardian status:?YESENIA states that she and FOB have been together for 6 years after meeting each other at a music festival. baby is first baby for parents. No concerns reported regarding domestic violence or intimate partner violence. ? Medical History: ?YESENIA is 24 year old female who is 2, para 0- now 1 following labor and delivery of . YESENIA received routine care during with [facility]. YESENIA presented to hospital for scheduled primary due to baby being breech at 39 weeks gestation on 03/30/25. Baby boy, named Alpesh Soliz, was born weighing 8lb 14oz and had apgars of 8 and 9 at one and five minutes of life, respectfully. YESENIA is breast feeding and states that baby will be followed by [facility] in [place] for pediatrics. Educational Status:? Both parents graduated from high school and have some college education. No problems with reading, learning or comprehension. Financial Status: Both parents are gainfully employed at a [employer]. Infant Supplies:?? All necessary baby supplies obtained, including: car seat, safe sleep space, clothes, diapers and wipes. Childcare/Caregiver(s):? YESENIA states that she will be the primary caregiver to baby, along with FOB when he is not at work. Transportation:?FOB has his drivers license and reliable means of transportation. MOB states that she has her license but does not drive. ? Programs/Agencies Involved: ?Parents are over income for community resources that provide financial assistance. ?? Children Services/Legal Issues:??? No history of children services involvement, no issues or concerns warranting referral to be made. Behavioral Health Issues: ??Mental Health History:?Both parents deny mental health history. ?? Substance Use History: Parents deny substance use history prior to and during . ?? Family History:??MOB states that her father has substance use history, she does not talk to him as a result. Sw explained to parents the importance of utilizing healthy and safe coping skills opposed to seeking comfort from drugs or alcohol. Parents express understanding. ??? Drug Screens: ?No drug screens observed while completing chart review. Family/Social Stressors:? Parents deny any problems, concerns or stressors at this time. Support Systems: YESENIA states that JAROCHO, her mom and paternal grandma are her biggest supports at this time. Depression/Shaken Baby/Safe Sleeping:? Sw educated parents on signs and symptoms of baby blues and depression and anxiety. MOB states that she has heard the terms and she feels like she would be able to talk to FOB about her feelings if she were struggling. FOB states that if MOB were to struggle he would be able to recognize that MOB were having a hard time and he would know how to help and support her. Sw educated parents on shaken baby prevention and ABCs of safe sleep, parents express understanding. ASSESSMENT:? MOB and baby admitted following labor and delivery of . Parents were receptive of meeting with sw. MOB and FOB were talkative and engaging with sw throughout completion of assessment. Sw discussed importance of using healthy and safe coping mechanisms with MOB due to her family history of substance use/ abuse opposed to seeking comfort from drugs or alcohol. MOB expressed understanding. MOB was observed sitting in chair and holding and feeding baby. MOB held baby comfortably and held him lovingly. FOB was attentive to MOB and helped her care for baby. Parents were nurturing to baby. Parents have obtained all necessary baby items and have natural supports in place. PLAN:? No other services requested or indicated. MOB and baby to be discharged when medically ready. Parents were provided literature regarding: signs and symptoms of baby blues and mood and anxiety disorders, Help Me Grow, shaken baby prevention, ABCs of safe sleep and a list of count includes the [facility] resources that are available for them should any needs present themselves. Chester Davenport, KITCHEN HAND, PARTS CASTING MACHINE OPERATOR
--- NOTE | 2025-04-07 14:37 | NURSING ---
F/up call performed-- feeling good overall. Vomited once yesterday but feels like it's because she didn't eat with her medication. Denies issues with lochia, no s+s of Pre-E. going well. Has post-op appt on Sunday.
== END 2025-04-01 10:25 | disposition home or self-care (01) | DRG 788 ==
PROVIDERS: Admitting Provider Obstetrics & Gynecology; PCP Nurse Practitioner Family; Visit Provider Obstetrics & Gynecology
PROC: 10D00Z1 Extraction of Products of Conception, Low, Open Approach (ICD-10-PCS; CPT 59514; principal; 2025-03-30 07:00)
DX: O32.1XX0 Maternal care for breech presentation, not applicable or unspecified (principal); D64.9 Anemia, unspecified; O99.02 Anemia complicating childbirth; Z37.0 Single live birth; Z3A.38 38 weeks gestation of pregnancy; Z83.2 Family history of diseases of the blood and blood-forming organs and certain disorders involving the immune mechanism; Z86.19 Personal history of other infectious and parasitic diseases
CPT/HCPCS: 59025; 59050; 85025; 85027; 86780; 86850; 86900; 86901; 99221; G0378; J2405

== ENCOUNTER → 2025-04-13 | Outpatient (CLI) | payer OTHER, SELFPAY ==
--- OUTSIDE RECORDS SUMMARY | 2025-04-13 22:52 | XMS RPT_ITS | CCD ---
Author Organization [facility] Care Team Providers Care Filer And Sander Name Role Phone Free, Text Entry Unavailable Unavailable Moomaw, Verona I Unavailable Unavailable Flower CUT PRESSMAN-ELDERLY CAREGIVER, Minerva D Primary Care Provider [phone] FLOWER, MINERVA D Primary Care Unavailable FLOWER, MINERVA D Primary Care Unavailable FLOWER, MINERVA D Primary Care Unavailable FLOWER, MINERVA D Attending Unavailable FLOWER, MINERVA D Primary Care Unavailable FLOWER, MINERVA D Attending Unavailable FLOWER, MINERVA D Primary Care Unavailable FLOWER, MINERVA D Attending Unavailable FLOWER, MINERVA D Primary Care Unavailable FLOWER, MINERVA D Primary Care Unavailable BILL ANDRES Referring Unavailable Flower COURT ASSISTANT-C, Minerva D Primary Care Provider Flower COURT ASSISTANT-C, Minerva D Referring Provider [phone] Dr. Radha Peters MD Attending Provider [phone] Dr. Radha Peters MD Referring Provider Faith Wall RN Attending Provider UnavailElle Hernandez CNM Attending Provider Forbes COURT ASSISTANT-C, Chioma Attending Provider Gian COURT ASSISTANT-C, Chioma Referring Provider [phone] ASSISTANT-C, Minerva D Primary Care Provider Flower COURT ASSISTANT-C, Minerva D Referring Provider Dr. Radha Peters MD Attending Provider [phone] Dr. Radha Peters MD Referring Provider Dr. María Elena Solomon DO Attending Provider Dr. María Elena Solomon DO Referring Provider Elle Poe CNM Attending Provider СЕРГЕЙ PRIMARY CARE, Primary Care Unavailable MARÍA ELENA CROFT Referring Unavailab MARÍA ELENA Frost Attending Unavailab le Gomez CNM, Amber Attending Provider Flower COURT ASSISTANT-C, Minerva D Primary Care Provider Flower COURT ASSISTANT-C, Minerva D Referring Provider Fran GARCIA, Dr. Garcia Attending Provider Flower COURT ASSISTANT-C, Minerva D Primary Care Provider Flower COURT ASSISTANT-C, Minerva D Referring Provider Gian COURT ASSISTANT-CChioma Attending Provider Dr. María Elena Solomon DO Other Provider Gomez CNM, Amber Referring Provider Gomez CNM, Amber Other Provider Flower COURT ASSISTANT-C, Minerva D Primary Care Provider Dr. Radha Peters MD Attending Provider Flower COURT ASSISTANT-C, Minerva D Primary Care Provider Flower COURT ASSISTANT-C, Minerva D Referring Provider Gian COURT ASSISTANT-CChioma Attending Provider Fran GARCIA, Dr. Garcia Admit Provider Dr. Radha Peters MD Other Provider Flower, Mnierva D Primary Care Unavailable Faith Wall Attending Unavailable Flower, Minerva D Primary Care Unavailable Amber Dyer Referring Unavailable Amber Dyer Attending Unavailable María Elena Solomon Attending Unavailabl e Flower, Minerva D Referring Unavailable Flower, Minerva D Primary Care Unavailable María Elena Solomon Attending Unavailabl e Flower, Minerva D Referring Unavailable Flower, Minerva D Primary Care Unavailable María Elena Solomon Attending Unavailabl e Flower, Minerva D Referring Unavailable Flower, Minerva D Primary Care Unavailable Flower, Minerva D Primary Care Unavailable Flower, Minerva D Referring Unavailable Forbes COURT ASSISTANT, Chioma Attending Unavailable Flower, Minerva D Referring Unavailable Flower, Minerva D Primary Care Unavailable Elle Poe Attending Unavailable Flower, Minerva D Primary Care Unavailable Forbes COURT ASSISTANT, Chioma Attending Unavailable Gian COURT ASSISTANT, Chioma Referring Unavailable Flower, Minerva D Primary Care Unavailable MarcanthRadha patricia Attending Unavailable MarcanthonyRadha Referring Unavailable Flower, Minerva D Referring Unavailable Flower, Minerva D Primary Care Unavailable Forbes COURT ASSISTANT, Chioma Attending Unavailable Flower, Minerva D Referring Unavailable MarcanthonyRadha Attending Unavailable Flower, Minerva D Primary Care Unavailable Flower, Minerva D Referring Unavailable Flower, Minerva D Primary Care Unavailable Gian COURT ASSISTANT, Chioma Attending Unavailable Amber Dyer Attending Unavailable DyerAmber Referring Unavailable Flower, Minerva D Primary Care Unavailable Amber Dyer Consulting Unavailable María Elena Solomon Referring Unavailabl e Jeremias Hodge, María Elena Consulting Unavailabl e Vande Velde, María Elena Attending Unavailabl e Flower, Minerva D Primary Care Unavailable Flower, Minerva D Referring Unavailable Flower, Minerva D Primary Care Unavailable BarakanthonyRadha Attending Unavailable Flower, Minerva D Referring Unavailable Flower, Minerva D Primary Care Unavailable MarcanthonyRadha Attending Unavailable Flower, Minerva D Referring Unavailable Flower, Minerva D Primary Care Unavailable Amber Dyer Attending Unavailable Flower, Minerva D Referring Unavailable Flower, Minerva D Primary Care Unavailable Forbes COURT ASSISTANT, Chioma Attending Unavailable Flower, Minerva D Referring Unavailable Flower, Minerva D Primary Care Unavailable Elle Poe Attending Unavailable Flower, Minerva D Referring Unavailable MarcanthonyRadha Attending Unavailable Flower, Minerva D Primary Care Unavailable Flower, Minerva D Referring Unavailable MarcanthonyRadha Attending Unavailable Flower, Minerva D Primary Care Unavailable PavelonyMaxwellon Admitting Unavailable Radha Peters Consulting Unavailable Radha Peters Attending Unavailable Flower, Minerva D Primary Care Unavailable Flower, Minerva D Primary Care Unavailable MarcanthonyRadha Attending Unavailable Marcanthony Radha Referring Unavailable Flower, Minerva D Primary Care Unavailable Gian COURT ASSISTANT, Chioma Attending Unavailable Vande Veljennie, María Elena Attending Unavailabl e Flower, Minerva D Primary Care Unavailable BarakanthRadha patricia Attending Unavailable Flower, Minerva D Primary Care Unavailable Marcanthony Radha Referring Unavailable Marcanthony, Radha Attending Unavailable Flower, Minerva Kolby Primary Care Unavailable Flower, Minerva D Referring Unavailable Flower, Minerva D Primary Care Unavailable Amber Dyer Attending Unavailable Vande Velde, María Elena Consulting Unavailabl e Flower, Minerva D Primary Care Unavailable Elle Poe Attending Unavailable Vande Velde, María Elena Referring Unavailabl e Vande Velde, María Elena Attending Unavailabl e Flower, Minerva D Primary Care Unavailable Vande Velde, María Elena Referring Unavailabl e Vande Velde, María Elena Attending Unavailabl e Flower, Minerva D Primary Care Unavailable Vande Velde, María Elena Referring Unavailabl e Vande Velde, María Elena Referring Unavailabl e Vande Velde, María Elena Attending Unavailabl e Flower, Minerva D Primary Care Unavailable Flower, Minerva D Primary Care Unavailable Radha Peters Attending Unavailable Radha Peters Referring Unavailable Vande Veljennie, María Elena Attending Unavailabl e Flower, Minerva D Primary Care Unavailable Benjie Naveen, María Elena Referring Unavailabl e Radha Peters Attending Unavailable Torres, Minerva D Primary Care Unavailable Radha Peters Admitting Unavailable Vande Velde, María Elena Referring Unavailabl e Vande Velde, María Elena Attending Unavailabl e Flower, Minerva D Primary Care Unavailable Allergies Allergy Classification Reported Allergen(s) Allergy Type Date of Onset Reaction(s) Facility (5 sources) strawberry allergenic extract; Translations: [STRAWBERRY] Drug Allergy 05-30-2023 Unknown [facility] Medications Current Medications Medication Drug Class(es) Dates Sig (Normalized) Sig (Original) acetaminophen 325 mg oral tablet (1 source) take 1 tablet by mouth every four hours as needed acetaminophen 325 mg oral tablet ; 1 tab(s) orally every 4 hours, As Needed Quantity: 0 Refills: 0 Ordered: 30-Nov-2021 Gertrude Mccloud Generic Substitution Allowed acetaminophen 325 mg / oxyCODONE hydrochloride 5 mg oral tablet (3 sources) Opioid Agonist Start: 03-30-2025 End: 04-01-2025 take 1 tablet by mouth every four hours as needed for pain Oxycodone-Acetaminop hen (Percocet) 5-325 mg tablet Active 1 {tbl} PO Q4H as needed for pain 20 7 0 April 01, 2025 delivery delivered Breech presentation Encounter for delivery without indication Maternal care for breech presentation, not applicable or unspecified amoxicillin 500 mg oral capsule (1 source) [...] 07/29/2025 Active famotidine 20 mg oral tablet (13 sources) Histamine-2 Receptor Antagonist Start: 02-18-2025 take 1 tablet by mouth twice daily before mealtime Famotidine (Pepcid Ac) 20 mg tablet Active 20 mg PO TWICE A DAY February 18, 2025 12:00am heartburn 24 hr ferrous sulfate 142 mg extended release oral tablet (19 sources) Start: 02-03-2025 take 1 tablet by mouth once daily Ferrous Sulfate (Slow Fe) 137 mg (45 mg iron) tablet extended release Active 137 mg PO daily February 03, 2025 12:00am anemia Start: 05-31-2023 FeroSuL 325 mg (65 mg [...] Ordered: 30-Nov-2021 Gertrude Mccloud Generic Substitution Allowed naproxen 500 mg oral tablet (3 sources) Nonsteroidal Anti-inflammatory Drug Start: End: take 1 tablet by mouth twice daily as needed for pain Naproxen 500 mg tablet Active 500 mg PO TWICE DAILY NEEDED as needed for Pain 30 April 01, 2025 3:33pm nitrofurantoin, macrocrystals 25 mg / nitrofurantoin, monohydrate 75 mg oral capsule (1 source) Nitrofuran Antibacterial Start: take 1 capsule by mouth twice daily at mealtime Nitrofurantoin Monohyd/M-Cryst (Macrobid) 100 mg capsule Active 100 mg PO TWICE A DAY 14 7 0 April 13, 2025 12:00am April 19, 2025 12:00am must administer with a meal/food Pnv No.295-Is-Ff5-Dha-Ep a-Fish ( Gummies) 400 mcg-35 mg- 25 mg-5 mg tablet,chewable (12 sources) Start: 025 Pnv No.545-Uk-Of9-Dha-Ep a-Fish ( Gummies) 400 mcg-35 mg- 25 mg-5 mg tablet,chewable Active 1 {tbl} PO DAILY February 19, 2025 12:00am Start: 02-19-2025 Pnv No.153-Fa- Yf7-Lbn-Jha-Fish ( Gummies) 400 mcg-35 mg- 25 mg-5 [...] Sig (Original) azithromycin 500 mg oral tablet (19 sources) Macrolide Antimicrobial Start: 08-26-2024 End: 10-22-2024 take 1 tablet by mouth once Azithromycin (Zithromax) 500 mg tablet Discontinued 1000 mg PO ONCE 2 0 August 26, 2024 1:00am October 22, 2024 3:29pm administer on day 1 of therapy docosahexaenoic acid 200 mg oral capsule (19 sources) Start: 08-15-2024 End: 02-20-2025 take 1 [...] every week ergocalciferol (Vitamin D-2) 1.25 MG (33419 UT) capsule Indications: Vitamin D deficiency Take 1 capsule (50,000 Units) by mouth 1 (one) time per week. 13 capsule 3 10/30/2023 07/29/2024 Discontinued (Therapy completed) Mecobalamin (Vitamin B12) 10,000 mcg recon soln (19 sources) Start: 08-15-2024 End: 02-20-2025 Mecobalamin (Vitamin B12) 10 ,000 mcg recon soln Discontinued ug IM MONTHLY August 15, 2024 1:00am February 20, 2025 9:10am Start: 08-15-2024 Mecobalamin (V itamin B12) 10,000 mcg recon soln Active ug IM MONTHLY August 15, 2024 1:00am ondansetron 4 mg disintegrating oral tablet (19 sources) Serotonin-3 Receptor Antagonist Start: 08-09-2024 End: 02-20-2025 take 1 tablet by mouth every six hours as needed for nausea and vomiting Ondansetron 4 mg tablet,disintegrating Discontinued 4 mg PO EVERY 6 HOURS as needed for nausea and vomiting 06 02August 09, 2024 1:00am February 20, 2025 9:10am Pnv Cmb#95-Ferrous Fumarate-Fa () 28 mg iron- 800 mcg tablet (19 sources) Start: 01-27-2024 End: 02-13-2024 Pnv Cmb#95-Ferrous [...] infection, unspecified; Translations: [Chlamydial infection, unspecified] Onset: 04-01-2025 Episodic Deficiency and other anemia (1 source) [...] breech presentation, not applicable or unspecified] Onset: 04-01-2025 02-23-2025 Episodic Comment on above: desires primary [...] on repeat s can. Other complications of ; puerperium affecting management of mother (5 sources) Deliveries by ; Translations: [Encounter for delivery without indication] 03-30-2025 Episodic Comment on above: ltcs sm 39 breech radhika y indie Other complications of ; puerperium affecting management of mother (2 sources) Encounter for delivery without indication; Translations: [Encounter for delivery without indication] Onset: 04-01-2025 Episodic Other complications of (20 sources) Maternal obesity complicating , childbirth and the puerperium, antepartum; Translations: [Obesity complicating , unspecified trimester] 10-22-2024 Chronic Comment on above: BMI 30.4, HgBA1C nor mal Other complications of (20 sources) Anemia of ; Translations: [Anemia complicating , unspecified trimester] 02-03-2025 Chronic Other complications of (2 sources) Anemia complicating , third trimester; Translations: [Anemia complicating , third trimester] Onset: 04-01-2025 Chronic Other complications of (2 sources) Obesity complicating , second trimester; Translations: [Obesity complicating , second trimester] Onset: 04-01-2025 Chronic Other complications of (1 source) Obesity complicating , unspecified trimester; Translations: [Obesity complicating , unspecified trimester] Onset: 09-25-2024 Chronic Other complications of (19 sources) Left lower quadrant pain; Translations: [Other [...] parasitic diseases complicating , unspecified trimester] Onset: 04-01-2025 Episodic Other complications of (2 sources) Supervision of with other poor reproductive or obstetric history, unspecified trimester; Translations: [Supervision of with other poor reproductive or obstetric history, unspecified trimester] Onset: 04-01-2025 Episodic Other complications of (2 sources) Supervision of high risk , unspecified, third trimester; Translations: [Supervision of high risk , unspecified, third trimester] Onset: 04-01-2025 Episodic Other complications of (2 sources) Maternal care for other known or suspected poor growth, unspecified trimester, not applicable or unspecified; Translations: [Maternal care for other known or suspected poor growth, unspecified trimester, not applicable or unspecified] Onset: 02-19-2025 Episodic Other complications of (1 source) Supervision of high risk , unspecified, second trimester; Translations: [Supervision of high risk , unspecified, second trimester] Onset: 01-14-2025 Episodic Other female genital disorders (19 sources) Vaginal bleeding; Translations: [Abnormal uterine and vaginal bleeding, unspecified] 02-04-2024 Chronic Other and delivery including normal (20 sources) Encounter for supervision of normal , unspecified, unspecified trimester; Translations: [] Onset: 07-29-2024 Episodic Comment on above: NIPT low risk, Choro id plexus cysts. Neg GBS. NIPT low ri sk, Choroid plexus cysts. Residual codes; unclassified (20 sources) [...] other endocrine, nutritional and metabolic diseases] Onset: 04-01-2025 Episodic Residual codes; unclassified (2 sources) Other specified health status; Translations: [Other specified health status] Onset: 04-01-2025 Episodic Residual codes; unclassified (2 sources) 38 weeks gestation of ; Translations: [38 weeks gestation of ] Onset: 04-01-2025 Episodic Residual codes; unclassified (2 sources) 33 weeks gestation of ; Translations: [33 weeks gestation of ] Onset: 02-19-2025 Episodic Residual codes; unclassified (1 source) 31 weeks gestation of ; Translations: [31 weeks gestation of ] Onset: 02-03-2025 Episodic Spontaneous (19 sources) Miscarriage; Translations: [Complete or unspecified spontaneous [...] cysts, not applicable or unspecified] Onset: 01-15-2025 Urinary tract infections (2 sources) Urinary tract infectious disease; Translations: [Urinary tract infection, site not specified] 04-13-2025 Episodic Comment on above: macrobid. culture pe nding Past or Other Problems Problem Classification Problem [...] 07-05-2023 Episodic Residual codes; unclassified (1 source) 28 weeks gestation of ; Translations: [28 weeks gestation of ] Onset: 01-06-2025 Episodic Residual codes; unclassified (1 source) 13 weeks gestation of ; Translations: [13 weeks gestation of ] Onset: 09-23-2024 Episodic Residual codes; unclassified (1 source) 8 weeks gestation of ; Translations: [8 weeks gestation of ] Onset: 08-22-2024 Episodic Unclassified (3 sources) Onset: 07-05-2023 Resolved: 07-29-2024 07-05-2023 Results Test Name Value Interpretation Reference Range Facility Automated blood erythrocyte countOrdered By: Radha Peters on 03-31-2025 RBC (Bld) [#/Vol] 3.35 10*6/uL Low 4.2-5.[address] [facility] Comment on above: Order Comment: Comme nts: Day #1Reason for Laboratory Test Performed By: #### L 100.0500 ####[facility] [address] [facility] [place], [address] Automated blood hematocrit ( percentage)Ordered By: Radha Peters on 03-31-2025 Hematocrit (Bld) [Volume fraction] 30.2 % Low 37-47 [facility] Comment on above: Order Comment: Comme nts: Day #1Reason for Laboratory Test Performed By: #### L 100.0500 ####[facility] [address] [facility] [place], [place], [id number] CBC-Complete Blood Cnt No Di ffon 03-31-2025 RDW SD 52.0 fl High 35.1-43.9 [facility] Comment on above: Order Comment: Comme nts: Day #1Reason for Laboratory Test Performed By: #### L 100.0500 ####[facility] [address] [place], [address] Erythrocyte distribution wid th ratioOrdered By: Radha Peters on 03-31-2025 Erythrocyte distribution width (RBC) [Ratio] 15.7 % High 11.6-14.6 [facility] Comment on above: Order Comment: Comme nts: Day #1Reason for Laboratory Test Performed By: #### L 100.0500 ####[facility] [address] [facility] [address] Erythrocyte distribution wid th standard deviationOrdered By: Radha Peters on 03-31-2025 Erythrocyte distribution width (RBC) [Ratio] 52.0 fl High 35.1-43.9 [facility] Hemoglobin measurementOrdere d By: Radha Peters on 03-31-2025 Hemoglobin (Bld) [Mass/Vol] 9.9 g/dL Low 12.0-15.0 [facility] Comment on above: Order Comment: Comme nts: Day #1Reason for Laboratory Test Performed By: #### L 100.0500 ####[facility] [address] [place] [id number] MCV (mean corpuscular volume ) determinationOrdered By: Radha Peters on 03-31-2025 MCV (RBC) [Entitic vol] 90.1 fL 81-99 [facility] Comment on above: Order Comment: Comme nts: Day #1Reason for Laboratory Test Performed By: #### L 100.0500 ####[facility] [address] [place], [address] Mean corpuscular hemoglobin (MCH) determinationOrdered By: Radha Peters on 03-31-2025 MCH (RBC) [Entitic mass] 29.6 pg 27.0-32.0 [facility] Comment on above: Order Comment: Comme nts: Day #1Reason for Laboratory Test Performed By: #### L 100.0500 ####[facility] [address] [place], [address] Mean corpuscular hemoglobin concentration (MCHC) determinationOrdered By: Radha Peters on 03-31-2025 MCHC (RBC) [Mass/Vol] 32.8 g/dL 32-36 [facility] Comment on above: Order Comment: Comme nts: Day #1Reason for Laboratory Test Performed By: #### L 100.0500 ####[facility] [address] [place], [address] Mean platelet volume determi nationOrdered By: Radha Peters on 03-31-2025 Platelet mean volume (Bld) [Entitic vol] 12.4 fL High 6.2-12.0 [facility] Comment on above: Order Comment: Comme nts: Day #1Reason for Laboratory Test Performed By: #### L 100.0500 ####[facility] [address] [place], [address] Platelet countOrdered By: Sangeeta Peters on 03-31-2025 Platelets (Bld) [#/Vol] 204 10*3/uL 150-450 [facility] Comment on above: Order Comment: Comme nts: Day #1Reason for Laboratory Test Performed By: #### L 100.0500 ####[facility] [address] [place], [address] White blood cell (WBC) count Ordered By: Radha Peters on 03-31-2025 WBC (Bld) [#/Vol] 17.2 10*3/uL High 4.4-11.[address] [facility] Comment on above: Order Comment: Comme nts: Day #1Reason for Laboratory Test Performed By: #### L 100.0500 ####[facility] [address] [place], [address] Absolute lymphocyte countOrd ered By: Radha Peters on 03-30-2025 Lymphocytes Auto (Unsp spec) [#/Vol] 2.80 10*3/uL 0.83-4.51 [facility] Absolute neutrophil countOrd ered By: Radha Peters on 03-30-2025 Neutrophils (Bld) [#/Vol] 10.6 10*3/uL High 2.0-7.7 [facility] Automated lymphocyte count a s percentage of total leukocytesOrdered By: Radha Peters on 03-30-2025 Lymphocytes/100 WBC Auto (Unsp spec) 19.3 % 19-41 [facility] Basophil percentageOrdered B y: Radha Peters on 03-30-2025 Basophils/100 WBC (Bld) 0.3 % 0-1 [facility] CBC W/Diff, Automatedon 03-11-2024 Absolute Lymph 2.80 X10 3/uL Normal 0.83-4.51 [facility] Comment on above: Performed By: #### B TS, L100.0100 ####[facility] [address] [place], [address] Absolute Neut 10.6 X10 3/uL High 2.0-7.7 [facility] Comment on above: Performed By: #### Ti CHAPPELL, L100.0100 ####[facility] [address] [place], [address] Basophils/100 WBC (Bld) 0.3 % Normal 0-1 [facility] Comment on above: Performed By: #### B TS, L100.0100 ####[facility] [address] [place], [address] Eosinophils/100 WBC (Bld) 0.8 % Normal 0-5 [facility] Comment on above: Performed By: #### B TS, L100.0100 ####[facility] [address] [place], [address] Erythrocyte distribution width (RBC) [Ratio] 15.5 % High 11.6-14.6 [facility] Comment on above: Performed By: #### Ti CHAPPELL, L100.0100 ####[facility] [address] [place], [address] Hematocrit (Bld) [Volume fraction] 35.8 % Low 37-47 [facility] Comment on above: Performed By: #### Ti CHAPPELL, L100.0100 ####[facility] [address] [place], [address] Hemoglobin (Bld) [Mass/Vol] 11.8 g/dL Low 12.0-15.0 [facility] Comment on above: Performed By: #### Ti CHAPPELL, L100.0100 ####[facility] [address] [place], [address] IG% 1.300 High 0.0-0.9 [facility] Comment on above: Result Comment: IG% - Immature Granulocytes (promyelocytes, myelocytes and metamyelocytes) > 1% indicates that a LEFT SHIFT is Present. Performed By: #### Ti CHAPPELL, L100.0100 ####[facility] [address] [place], [address] Lymphocytes/100 WBC (Bld) 19.3 % Normal 19-41 [facility] Comment on above: Performed By: #### Ti CHAPPELL, L100.0100 ####[facility] [address] [place], [address] MCH (RBC) [Entitic mass] 29.4 pg Normal 27.0-32.0 [facility] Comment on above: Performed By: #### Ti CHAPPELL, L100.0100 ####[facility] [address] [place], [address] MCHC (RBC) [Mass/Vol] 33.0 g/dL Normal 32-36 [facility] Comment on above: Performed By: #### Ti CHAPPELL, L100.0100 ####[facility] [address] [place], [address] MCV (RBC) [Entitic vol] 89.1 fL Normal 81-99 [facility] Comment on above: Performed By: #### Ti CHAPPELL, L100.0100 ####[facility] [address] [place], [address] Monocytes/100 WBC (Bld) 5.4 % Normal 0-10 [facility] Comment on above: Performed By: #### Ti CHAPPELL, L100.0100 ####[facility] [address] [place], [address] Neutrophils/100 WBC (Bld) 72.9 % High 47-70 [facility] Comment on above: Performed By: #### Ti CHAPPELL, L100.0100 ####[facility] [address] [place], [address] Nucleated RBC (Bld) [#/Vol] 0 10*3/uL Normal 0-5 [facility] Comment on above: Performed By: #### Ti CHAPPELL, L100.0100 ####[facility] [address] [place], [address] Platelet mean volume (Bld) [Entitic vol] 12.4 fL High 6.2-12.0 [facility] Comment on above: Performed By: #### Ti CHAPPELL, L100.0100 ####[facility] [address] [place], [address] Platelets (Bld) [#/Vol] 226 10*3/uL Normal 150-450 [facility] Comment on above: Performed By: #### Ti CHAPPELL, L100.0100 ####[facility] [address] [place], [address] RBC (Bld) [#/Vol] 4.02 10*6/uL Low 4.2-5.[address] [facility] Comment on above: Performed By: #### B TS, L100.0100 ####[facility] [address] [place], [address] RDW SD 50.7 fl High 35.1-43.9 [facility] Comment on above: Performed By: #### B TS, L100.0100 ####[facility] [address] [place], [address] WBC (Bld) [#/Vol] 14.5 10*3/uL High 4.4-11.[address] [facility] Comment on above: Performed By: #### B TS, L100.0100 ####[facility] [address] [place], [address] Discharge Instructionon 07- Discharge Instruction [facility] Medical Records Department [address] [place] [address] Instructions for Home/Discharge Instructions 03/30/25 0840 MR#: [id number] Acct: [id number] Name: MADDIE TORRE Rep #: [id number] : 2000 24 From: Radha Peters MD PCP: AMEE Quinteros Status:ADM IN Discharge Instructions DC O2, CPAP, BIPAP needs Home O2 Discharge instructions: No Dressing / Incision Discharge Activity: May Not Drive (for 2 weeks or while taking narcotic pain medications.), May Shower and May Take a Tub Bath (in 7 days) May shower in (days): 0 May resume sexual activity in: 4-6 weeks Weight Bearing Status: Full weight bearing Lifting Restrictions: 20 pounds Dressing / Incision Call your doctor if your incision/area has: Continuous Slow Oozing, Sudden Increased Bleeding, Increased Pain/ Swelling, Increased Redness and Foul Smelling Discharge Call your doctor if you observe: Fever of 101 or Higher and Using more than 1 pad per hour (for 2 hours) Suture Line Care: Avoid Pulling/Pushing and Avoid Pinching/Bending Cleanse incision/area with: Soap Water and Keep Dressing Clean Dry Follow Up Care Please Follow Up With: Radha Peters MD When: Call [phone] to make an appointment for an incision check in 1-2 weeks. Test Results: Test results from this visit will be discussed in further detail at your follow-up appointment, if applicable. Discharge Plan Admission Admit Date/Time: 03/30/25 05:10 Attending Provider: Radha Peters Primary Care Provider: Minerva Flower Discharge Orders/Prescriptions Prescriptions: No Action Slow Fe 137 mg (45 mg iron) tablet extended release 137 mg PO QDAY famotidine [Pepcid AC] 20 mg tablet 20 mg PO BID Gummies 400 mcg-35 mg- 25 mg-5 mg tablet,chewable 1 tab PO DAILY Referrals / Follow Up: Minerva Flower, COURT ASSISTANT-C [Primary Care Provider] - 03/31/25 1401 Radha Peters MD CC: COURT ASSISTANT-C Minerva Flower Signed Normal [facility] Eosinophil percentageOrdered By: Radha Peters on 03-30-2025 Eosinophils/100 WBC (Bld) 0.8 % 0-5 [facility] H AND P Exam - OB/GYNon 03-11 H&P Exam - ASSOCIATE ACCOUNTANT [facility] Medical Records Department [address] [place] [address] H P Exam - ASSOCIATE ACCOUNTANT 03/30/25 0641 MR#: [id number] Acct: [id number] Name: MADDIE OTRRE Rep #: [id number] : 2000 24 From: Radha Peters MD PCP: SERGE QuinterosC Status:ADM IN Location: [id number] HPI - General General Date of Admission: 03/30/25 HPI Narrative MADDIE TORRE, is a 24 F who presents for primary low transverse secondary to breech presentation. she has had an otherwise uncomplicated . Maternal Data Information ITZEL Calculator Estimated Delivery Date Method Current WG Current Estimate 04/06/25 Ultrasound #1 39w 0d Other Estimates 03/30/25 LMP (Certain) 40w 0d PFSH PFS Medical History (Updated 03/30/25 @ 05:52 by Maddie Florentino) Chlamydia infection affecting Spontaneous Home Medications ???Medication ???Instructions ???Recorded ???Last Taken ???Type ferrous sulfate 137 mg (45 mg 137 mg PO QDAY anemia 02/03/25 History iron) tablet,extended release (Slow Fe) famotidine 20 mg tablet (Pepcid AC) 20 mg PO BID heartburn 02/18/25 03/29/25 History PNV 153-FA 400 mcg-om3 35 mg-dha 1 tab PO DAILY 02/19/25 03/29/25 History 25 mg-epa 5 mg-fish oil chew tablet ( Gummies) Allergy/AdvReac Type Severity Reaction Status Date / Time No Known Allergies Allergy Verified 03/30/25 05:33 Family History Grandmother Cancer Lung-Maternal Aunt Cancer Pancreatic- Maternal Surgical History (Updated 03/30/25 @ 05:52 by Maddie Florentino) History of surgery Social History adopted: No household members: spouse current occupational status: 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 Date Name GA/Weeks Outcome Route Bth Weight Gen Labor Lgth Anesthesia Del Locatn Provider FOB 01/09/24 5 spontaneous Visit Details Expected Delivery Route/Plan LTCS Labor Preferences- CB/BF [...] -???-???-???-???-???-?? ?-???-???-???-???-???-? ??- Negative 145 -???-???-???-???-???-?? ?-???-???-???-???-???-? ? (more content not included)... Normal [facility] Immature granulocytes/100 WB C Auto (Bld)Ordered By: Radha Peters on 03-30-2025 Immature granulocytes/100 WBC (Bld) 1.300 % High 0.0-0.9 [facility] Comment on above: IG% - Immature Granu locytes (promyelocytes, myelocytes and metamyelocytes) > 1% indicates that a LEFT SHIFT is Present. Monocyte percentageOrdered B y: Radha Peters on 03-30-2025 Monocytes/100 WBC (Bld) 5.4 % 0-10 [facility] Neutrophil percentageOrdered By: Radha Peters on 03-30-2025 Neutrophils/100 WBC (Bld) 72.9 % High 47-70 [facility] Nucleated red blood cell per centageOrdered By: Radha Peters on 07-21-2025 Nucleated RBC/100 WBC (Bld) [Ratio] 0 % 0-5 [facility] Operative Reporton 5 Operative Report [facility] Medical Records Department [address] [place] [address] Operative Report 03/30/25 0719 MR#: [id number] Acct: [id number] Name: MADDIE TORRE Rep #: [id number] : 2000 24 From: Radha Peters MD PCP: Minerva Flower, COURT ASSISTANT-C Status:ADM IN Location: [id number] Assessment Plan (1) Breech presentation: COMMENT: desires primary c/s. discussed and declines ECV, C/S 03/30 @ 0715. (2) Anemia in preg-unspec: QUALIFIERS: Trimester: third trimester Qualified Code(s): O99.013 - Anemia complicating , third trimester (3) Chlamydia infection during : COMMENT: 08/26/24 azithromycin sent; 10/22/24 rpt culture:negative repeat culture at 36 weeks with the GBS (4) Family history of hemochromatosis: COMMENT: Pt tested and is NEGATIVE (5) Vegetarian diet: COMMENT: x8 years - recently started eating some meat since (6) Obesity affecting : QUALIFIERS: Trimester: second trimester Obesity type affecting : unspecified obesity Qualified Code(s): O99.212 - Obesity complicating , second trimester COMMENT: BMI 30.4, HgBA1C normal (7) H/O miscarriage, currently : COMMENT: January 2024 (8) Supervision of high-risk : QUALIFIERS: Trimester: third trimester Qualified Code(s): O09.93 - Supervision of high risk , unspecified, third trimester COMMENT: PRR , ITZEL 04/06/25, indie boy : Otoniel (9) : QUALIFIERS: Weeks of gestation: 38 weeks Qualified Code(s): Z3A.38 - 38 weeks gestation of COMMENT: Neg GBS. NIPT low risk, Choroid plexus cysts. (10) delivery delivered: COMMENT: ltcs sm 39 breech boy sumaya Maternal Data Information ITZEL Calculator Estimated Delivery Date Method Current WG Current Estimate 04/06/25 Ultrasound #1 39w 0d Other Estimates 03/30/25 LMP (Certain) 40w 0d Final ITZEL Source: LMP Operative Report (OB) Details Procedure Type: low transverse Date of Procedure: 03/30/25 Procedure Start Time: 07:35 Pre-Operative Diagnosis: Other Other Pre-Operative diagnosis: see a/p comments Post-Operative Diagnosis: Same as Pre-operative diagnosis Classification: Scheduled Type of Anesthesia: Spinal Special Medications: none Antibiotic Given: Ancef 2 grams IV x1 Drain: Alcaraz to straight drain Estimated Blood Loss: 600 Fluids Replaced: crystalloid Findings Description of surgery: Spinal anesthesia was placed without difficulty. Alcaraz catheter was placed. The patient was placed in the dorsal supine position with leftward tilt. Patient was prepped and draped in the normal sterile fashion. Pfannenstiel skin incision was made with the scalpel and carried through to the underlying layer of fascia with the scalpel. Fascia was nicked in the midline and the incision extended laterally. The rectus bellies were dissected off superiorly and inferiorly with out complication both sharply and bluntly. The peritoneum was entered digitally. The incision was stretched and a low transverse uterine incision was made with the scalpel. The buttox was delivered atraumatically and the right and left legs were swept anteriorly and delivered, followed by the body and the arms which were swept anteriorly and delivered. Gentle traction was placed on the mentum to flex the head which was delivered without complication. The cord was clamped and cut and the was handed off to awaiting nurse. The placenta was delivered spontaneously immediately following and was noted to be intact and have a three-vessel cord. The uterus was exteriorized cleared of all clots and debris, and the incision was closed in a single layer closure using #1 Monocryl. The ovaries and fallopian tubes were noted to be within normal limits. The uterus was returned to the maternal abdomen and gutters were cleared of all clots and debris. The peritoneum was closed with 3- 0 Monocryl in a running fashion. Gloves were changed prior to fascial closure. Fascia was closed with 0 PDS in a running fashion. Subcutaneous tissue was copiously irrigated and the skin was closed with 3-0 Monocryl in a subcuticular fashion. Mepilex dressing was applied without complication. Patient was taken to recovery in stable condition. It was discussed with the patient that based on the clinical information obtained during this encounter, combined with her history, at this time I would recommend vaginal or for future deliveries if further pregnancies are desired. Surgical findings: nl uterus tubes ovaries Presentation: Vertex Amniotic Membrane Rupture Type: Artificial Amniotic Fluid Description: Clear Specimen collected: Yes Description of specimen(s) removed: placenta and baby Cord Vessel Description: 3 Vessels Delayed Cord Clamping: Yes Stereotyper pin maker: Yes Glove Cleaner (more content not included)... Normal [facility] Syphilis Antibodieson 2024 Syphilis Abs Non-Reactive Normal Nonreactive [facility] Comment on above: Performed By: #### L 509.8002 ####[facility] [address] [place], [address] Type AND Screenon 03-30-2025 ABO and Rh group Nom (Bld) Blood group O Rh(D) positive Normal [facility] Comment on above: Order Comment: SC-SE CTION Performed By: #### B TS, L100.0100 ####[facility] [address] [place], [place], [address] Laboratory - Chemistry and C hemistry - challengeOrdered By: Radha Peters on 03-25-2025 Glucose Ql (U) Negative [facility] Laboratory - UrinalysisOrder ed By: Radha Peters on 03-25-2025 Protein Ql (U) Negative [facility] Customer Service Engineer Office Visit Reporton 03-25-2025 Customer Service Engineer Office Visit Report [facility] [address], [address] [place] [address] OFFICE VISIT Date of Service: 03/25/25 MR#: [id number] Acct: [id number] Name: MADDIE TORRE Rep #: [id number] : 2000 Provider: Dr. 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 Normal [facility] Chlamydia/GC SHAYLEE aptimaon CHLAMY,NUC ACID Negative Normal Negative [facility] Comment on above: Performed By: #### L 7000.1800 ####[facility] [address] [place], [address] GC BY NUC ACID Negative Normal Negative [facility] Comment on above: Result Comment: Perf ormed at: =G - [facility] [address] [place] [id number] Rotary Machine Operator: Ilsa Crystal MD, Phone: [phone] Performed By: #### L 7000.1800 ####[facility] [address] [place], [place], [address] Chlamydia trachomatis rRNA d etection by probe and target amplification methodOrdered By: María Elena Hogde on 03-19-2025 C. trachomatis rRNA SHAYLEE+probe Ql (Unsp spec) Negative Negative [facility] Laboratory - Chemistry and C hemistry - challengeOrdered By: María Elena Hodge on 03-19-2025 Glucose Ql (U) Negative [facility] Laboratory - UrinalysisOrder ed By: María Elena Hodge on 03-19-2025 Protein Ql (U) Negative [facility] Neisseria gonorrhoeae nuclei c acid detection by amplified probe techniqueOrdered By: María Elena Hodge on 03-19-2025 N. gonorrhoeae DNA SHAYLEE+probe Ql (Unsp spec) Negative Negative [facility] Comment on above: Performed at: =[address] [id number] Director: Ilsa Crystal MD, Phone: [phone] Customer Service Engineer Office Visit Reporton 03-19-2025 Customer Service Engineer Office Visit Report [facility] [address], [address] [place] [address] OFFICE VISIT Date of Service: 03/19/25 MR#: [id number] Acct: [id number] Name: MADDIE TORRE Rep #: [id number] : 2000 Provider: Dr. 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 Date Name GA/Weeks Outcome Route Bth Weight Infant Gen Labor Lgth Anesthesia Del Locatn Provider FOB 01/09/24 5 spontaneous HPI 37wk [...] ?-???-???-???-???-???-? ??- Negative 150 -???-???-???-???-???-?? ?-???-???-???-???-???-? ??- - no vb cr amping 10/22/24 -???-???-???-???-???-?? ?-???-???-???-???-???-? ??- 16w 2d 172 lb 4 oz (+6 lb 4 oz) 118/74 Negative -???-???-???-???-???-?? ?-???-???-???-???-???-? ??- Negative 145 -???-???-???-???-???-?? ?-???-???-???-???-???-? ??- -No VB (more content not included)... Normal [facility] Rule out Beta Strep (Grp. B) on 03-13-2025 EMERY Group B Beta Streptococcus is not isolated. Normal [facility] Comment on above: Performed By: #### L 509.8000, L3890.6005, L3890.6100, L3890.6300, L100.0100, BTS, L501.9985, L509.4005 #### [facility] [place], [address] Customer Service Engineer Office Visit Reporton 03-11-2025 Customer Service Engineer Office Visit Report [facility] [address], [address] [place] [address] OFFICE VISIT Date of Service: 03/11/25 MR#: [id number] Acct: [id number] Name: MADDIE TORRE Rep #: [id number] : 2000 Provider: Dr. 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 Normal [facility] Screening beta-hemolytic Str eptococcus cultureOrdered By: Radha Peters on 03-11-2025 Beta-hemolytic Streptococcus culture Group B Beta Streptococcus is not isolated. [facility] Laboratory - Chemistry and C hemistry - challengeOrdered By: Amber Dyer on 03-06-2025 Glucose Ql (U) Negative [facility] Laboratory - UrinalysisOrder ed By: Amber Dyer on 03-06-2025 Protein Ql (U) Negative [facility] Customer Service Engineer Office Visit Reporton 03-06-2025 Customer Service Engineer Office Visit Report [facility], [address] [place] [address] OFFICE VISIT Date of Service: 03/06/25 MR#: [id number] Acct: [id number] Name: MADDIE TORRE Rep #: [id number] : 2000 Provider: AMAIRANI burnett Age/Sex: 24/F Location: [facility] Status: Signed Intake Vital Signs 09/23/24 13:32 02/26/25 16:25 03/06/25 15:46 03/06/25 15:46 Height 5 ft 2 in 5 ft 2 in 5 ft 2 in 5 ft 2 in Weight: 200 lb 4 oz BMI 36.6 BP 122/81 H Intake Visit Reasons: 35wk ob Chief Complaint: 35wk ob Creative Project Manager Required: No Is patient in pain?: No [...] spouse 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 Normal [facility] OB Triage Physician Noteon 0 02-26-2025 OB Triage Physician Note [facility] Medical Records Department [address] [place] [address] OB Triage Physician Note 02/26/252046 MR#: [id number] Acct: [id number] Name: MADDIE TORRE Rep #: [id number] : 2000 24 From: María Elena Solomon DO PCP: AMEE Quinteros Status:DEP CLTana Ferro Location: [facility] HPI - General HPI Narrative MADDIE TORRE, is a 24 y/o @ 34 weeks 3 days who presents to [facility] with the complaint of tightening feeling in [...] showing more than irritability Maternal Data Information ITZEL Calculator Estimated Delivery [...] occupational status: 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 Date Name GA/Weeks Outcome Route Bth Weight Gen Labor Lgth Anesthesia Del Willie Provider FOB 01/09/24 5 spontaneous Visit Details [...] 4 oz (more content not included)... 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 Urine GCC today 11/18/24 -???-???-???-???-???-?? ?-???-???-???-???-???-? ??- 20w 1d 177 lb 2 oz (+11 lb 2 oz) 114/72 Negative -???-???-???-???-???-?? ?-???-???-???-???-???-? ??- Ne (more content not included)... Normal [facility] Genital Culture Comprehensiv vonda 02-20-2025 VAC Reason for Exam: contractions Normal vaginal zheng isolated. No yeast, Gardnerella, Neisseria or beta-hemolytic Streptococcus isolated. Normal [facility] Comment on above: Performed By: #### L 509.8000, L3890.6005, L3890.6100, L3890.6300, L100.0100, BTS, L501.9985, L509.4005 #### [facility] [address] [facility] [place], [address] Urine Cultureon 02-20-2025 URC Below infection leve l. Mixed Gram Positive Organisms [place] Count <1000 MIXC Mixed contaminants. Submit a new specimen if indicated. Normal [facility] Comment on above: Performed By: #### M 100.2200 ####[facility] [address] [facility] [address] [place], [address] OB Limited (No Biometrics)on 02-19-2025 OB Limited (No Biometrics) [facility] Imaging Services [address] [place], [place] [address] OB Limited (No Biometrics) MR#: [id number] Acct: [id number] Name: MADDIE TORRE Rep #: [id number] : 2000 F 24 From: Franklyn danielle MD PCP: AMEE Quinteros Status: REG CLI Study: OB Limited (No Biometrics) Date of Exam: 02/19 Exam# [id number] Ordering Dr: Elle Poe CNM PROCEDURE: OB [...] No evidence of placenta previa. Reading Location: [facility] CC: AMAIRANI Poe; COURT ASSISTANT-C Minerva Flower Human Resource Manager: Signed Normal [facility] OB Triage Progress Noteon OB Triage Progress Note [facility] Medical Records Department [address] [place] [address] OB Triage Progress Note 02/19/25 1749 MR#: [id number] Acct: [id number] Name: MADDIE TORRE Rep #: [id number] : 2000 24 From: Elle Poe CNM PCP: AMEE Quinteros Status:DEP CLI Y DOS: Location: WPOUT Progress Notes Date of Service: 02/19/25 Progress Note: Patient presents for triage evaluation secondary to vaginal bleeding at 33.3 weeks at home with wiping. Had vaginal exam yesterday in the office. Urine and culture was collected at appointment. FHT: 130 Moderate variability reactive no decelerations category I tracing [place]: rare Contractions Assessment and plan: US reassuring, Reactive NST, celestone IM- repeat in 24 hours, No additional bleeding noted, reassuring maternal and status patient discharged to home to follow-up tomorrow for 2nd dose of celestone and next week in office . See problem list details for additional plan information. Charges/Coding Multi Select Codes Urinary/Genital Urinary/Genital CPT Codes: 14416-39 non-stress test Interp Assessment Plan (1) Vaginal bleeding during : PLAN: Reassuring NST and US Celestone x2 No additonal bleeding noted. D/C home (2) Anemia in preg-unspec: QUALIFIERS: Trimester: third trimester Qualified Code(s): O99.013 - Anemia complicating , third trimester (3) affected by growth restriction: COMMENT: growth US 7%- MFM referral for fu [...] Signature (if applicable): Date CC: AMAIRANI Poe; AMEE Flower Signed Normal [facility] Genital cultureOrdered By: Ba Hodge on 02-18-2025 Source specific culture Neisseria or beta-hemolytic Streptococcus isolated. [facility] Gram Stainon 02-18-2025 GS Reason for Exam: contractions Gram Stain 4+ Gram positive rods 2+ White Blood Cells No Gram negative diplococci Score = 0 Interpretation: 0-3 Normal, 4-6 Intermediate, 7-10 Positive BV Normal [facility] Comment on above: Performed By: #### L 509.2624, L3890.6005, L3890.6100, L3890.6300, L100.0100, BTS, L501.9985, L509.4005 #### [facility] [place], [address] Gram stainOrdered By: Wilfredo Hodge on 02-18-2025 Microscopic observation Gram stain Nom (Unsp spec) [facility] - Chemistry and C hemistry - challengeOrdered By: María Elena Hodge on 02-18-2025 Bilirubin Ql (U) Negative [facility] Glucose Ql (U) Negative [facility] Ketones Ql (U) Negative [facility] pH (U) 5.0 [pH] [facility] Specific gravity (U) [Rel density] 1.005 [facility] Urobilinogen (U) [Mass/Vol] 0.1173859 mg/dL [facility] - Hematology and Cell countsOrdered By: María Elena Hodge on 02-18-2025 Hemoglobin Ql (U) Negative [facility] - Specimen inform ationOrdered By: María Elena Hodge on 02-18-2025 Clarity (U) Clear [facility] Color (U) Yellow [facility] - UrinalysisOrder ed By: María Elena Hodge on 02-18-2025 Nitrite Ql (U) Negative [facility] [facility] Protein Ql (U) Negative [facility] No Panel InformationOrdered By: María Elena Hodge on 02-18-2025 Urine Leukocytes Negatve [facility] Customer Service Engineer Office Visit Reporton 02-18-2025 Customer Service Engineer Office Visit Report [facility] [address], [address] [place] [address] OFFICE VISIT Date of Service: 02/18/25 MR#: [id number] Acct: [id number] Name: MADDIE TORRE Rep #: [id number] : 2000 Provider: Dr. 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 Normal [facility] Urine cultureOrdered By: Denise Hodge on 02-18-2025 Bacteria identified Cx Nom (U) Positive Abnormal [facility] Absolute lymphocyte countOrd ered By: Chioma Springer on 02-03-2025 Lymphocytes Auto (Unsp spec) [#/Vol] 2.13 10*3/uL 0.83-4.51 [facility] Absolute neutrophil countOrd ered By: Chioma Springer on 02-03-2025 Neutrophils (Bld) [#/Vol] 8.7 10*3/uL High 2.0-7.7 [facility] Automated blood erythrocyte countOrdered By: Chioma Springer on 02-03-2025 RBC (Bld) [#/Vol] 3.53 10*6/uL Low 4.2-5.[address] [facility] Comment on above: Performed By: #### L 100.0100 ####[facility] [address] [place], [address] Automated blood hematocrit ( percentage)Ordered By: Chioma Isidrotings on 02-03-2025 Hematocrit (Bld) [Volume fraction] 33.0 % Low 37-47 [facility] Comment on above: Performed By: #### L 100.0100 ####[facility] [address] [place], [address] Automated lymphocyte count a s percentage of total leukocytesOrdered By: Chioma Forbes on 02-03-2025 Lymphocytes/100 WBC Auto (Unsp spec) 17.4 % Low 19-41 [facility] Basophil percentageOrdered B y: Chioma Springer on 02-03-2025 Basophils/100 WBC (Bld) 0.2 % 0-1 [facility] Comment on above: Performed By: #### L 100.0100 ####[facility] [address] [place], [address] CBC W/Diff, Automatedon 01-09 Absolute Lymph 2.13 X10 3/uL Normal 0.83-4.51 [facility] Comment on above: Performed By: #### L 100.0100 ####[facility] [address] [place], [address] Absolute Neut 8.7 X10 3/uL High 2.0-7.7 [facility] Comment on above: Performed By: #### L 100.0100 ####[facility] [address] [place], [address] IG% 2.000 High 0.0-0.9 [facility] Comment on above: Result Comment: IG% - Immature Granulocytes (promyelocytes, myelocytes and metamyelocytes) > 1% indicates that a LEFT SHIFT is Present. Performed By: #### L 100.0100 ####[facility] [address] [place], [address] Lymphocytes/100 WBC (Bld) 17.4 % Low 19-41 [facility] Comment on above: Performed By: #### L 100.0100 ####[facility] [address] [place], [address] Nucleated RBC (Bld) [#/Vol] 0 10*3/uL Normal 0-5 [facility] Comment on above: Performed By: #### L 100.0100 ####[facility] [address] [place], [address] RDW SD 46.7 fl High 35.1-43.9 [facility] Comment on above: Performed By: #### L 100.0100 ####[facility] [address] [place], [address] Eosinophil percentageOrdered By: Chioma Springer on 02-03-2025 Eosinophils/100 WBC (Bld) 1.1 % 0-5 [facility] Comment on above: Performed By: #### L 100.0100 ####[facility] [address] [place], [address] Erythrocyte distribution wid th ratioOrdered By: Chioma Springer on 02-03-2025 Erythrocyte distribution width (RBC) [Ratio] 13.9 % 11.6-14.6 [facility] Comment on above: Performed By: #### L 100.0100 ####[facility] [address] [place], [address] Erythrocyte distribution wid th standard deviationOrdered By: Chioma Springer on 02-03-2025 Erythrocyte distribution width (RBC) [Ratio] 46.7 fl High 35.1-43.9 [facility] Hemoglobin measurementOrdere d By: Chioma Springer on 02-03-2025 Hemoglobin (Bld) [Mass/Vol] 10.8 g/dL Low 12.0-15.0 [facility] Comment on above: Performed By: #### L 100.0100 ####[facility] [address] [place], [address] Immature granulocytes/100 WB C Auto (Bld)Ordered By: Chioma Springer on 02-03-2025 Immature granulocytes/100 WBC (Bld) 2.000 % High 0.0-0.9 [facility] Comment on above: IG% - Immature Granu locytes (promyelocytes, myelocytes and metamyelocytes) > 1% indicates that a LEFT SHIFT is Present. Laboratory - Chemistry and C hemistry - challengeOrdered By: Chioma Springer on 02-03-2025 Glucose Ql (U) Negative [facility] Laboratory - UrinalysisOrder ed By: Chioma Springer on 02-03-2025 Protein Ql (U) Negative [facility] MCV (mean corpuscular volume ) determinationOrdered By: Chioma Springer on 02-03-2025 MCV (RBC) [Entitic vol] 93.5 fL 81-99 [facility] Comment on above: Performed By: #### L 100.0100 ####[facility] [address] [place], [place], [id number] Mean corpuscular hemoglobin (MCH) determinationOrdered By: Chioma Springer on 02-03-2025 MCH (RBC) [Entitic mass] 30.6 pg 27.0-32.0 [facility] Comment on above: Performed By: #### L 100.0100 ####[facility] [address] [place], [address] Mean corpuscular hemoglobin concentration (MCHC) determinationOrdered By: Chioma Springer on 02-03-2025 MCHC (RBC) [Mass/Vol] 32.7 g/dL 32-36 [facility] Comment on above: Performed By: #### L 100.0100 ####[facility] [address] [place], [address] Mean platelet volume determi nationOrdered By: Chioma Forbes on 02-03-2025 Platelet mean volume (Bld) [Entitic vol] 11.7 fL 6.2-12.0 [facility] Comment on above: Performed By: #### L 100.0100 ####[facility] [address] [place], [address] Monocyte percentageOrdered B y: Chioma Springer on 02-03-2025 Monocytes/100 WBC (Bld) 8.6 % 0-10 [facility] Comment on above: Performed By: #### L 100.0100 ####[facility] [address] [facility] [address] Neutrophil percentageOrdered By: Chioma Forbes on 02-03-2025 Neutrophils/100 WBC (Bld) 70.7 % High 47-70 [facility] Comment on above: Performed By: #### L 100.0100 ####[facility] [address] [facility] [address] Nucleated red blood cell per centageOrdered By: Chioma Forbes on 02-03-2025 Nucleated RBC/100 WBC (Bld) [Ratio] 0 % 0-5 [facility] Customer Service Engineer Office Visit Reporton 02-03-2025 Customer Service Engineer Office Visit Report [facility]'s [address], [address] [place] [address] OFFICE VISIT Date of Service: 02/03/25 MR#: [id number] Acct: [id number] Name: MADDIE TORER Rep #: [id number] : 2000 Provider: AMEE diaz Age/Sex: 24/F Location: [facility] [place] Status: Signed Intake Vital Signs 09/23/24 13:32 01/20/25 14:36 02/03/25 13:42 Height 5 ft 2 in 5 ft 2 in 5 ft 2 in Weight: 190 lb 193 lb 6 oz BMI 34.7 35.4 BP 115/75 108/80 Intake Visit Reasons: 32 wk ob Chief Complaint: 32 Week OB Creative Project Manager Required: No Is patient in pain?: No [...] occupational status: employed 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 Normal [facility] Platelet countOrdered By: Cristian Springer on 02-03-2025 Platelets (Bld) [#/Vol] 232 10*3/uL 150-450 [facility] Comment on above: Performed By: #### L 100.0100 ####[facility] [address] [place], [place], [address] White blood cell (WBC) count Ordered By: Chioma Springer on 02-03-2025 WBC (Bld) [#/Vol] 12.2 10*3/uL High 4.4-11.[address] [facility] Comment on above: Performed By: #### L 100.0100 ####[facility] [address] [place], [id number] Laboratory - Chemistry and C hemistry - challengeOrdered By: Amber Dyer on 01-20-2025 Glucose Ql (U) Negative [facility] Laboratory - UrinalysisOrder ed By: Amber Gomez on 01-20-2025 Protein Ql (U) Negative [facility] Customer Service Engineer Office Visit Reporton 01-20-2025 Customer Service Engineer Office Visit Report [facility] [address], [address] [place] [address] OFFICE VISIT Date of Service: 01/20/25 MR#: [id number] Acct: [id number] Name: MADDIE TORRE Rep #: [id number] : 2000 Provider: AMAIRANI burnett Age/Sex: 24/F Location: [facility] Status: Signed Intake Vital Signs 09/23/24 13:32 01/06/25 12:59 01/20/25 14:36 Height 5 ft 2 in 5 ft 2 in 5 ft 2 in Weight: 190 lb BMI 34.7 BP 115/75 Intake Visit Reasons: 30 wk ob Creative Project Manager Required: No Is patient in pain?: No [...] 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 (more content not included)... Normal [facility] OB Limited With Biometricson 01-08-2025 OB Limited With Biometrics [facility] [address] [place] [address] OB Limited With Biometrics MR#: [id number] Acct: [id number] Name: MADDIE TORRE Rep #: [id number] : 2000 F 24 From: Todd Francis MD PCP: Minerva Flower COURT ASSISTANTJudsonC Status: REG CLI Study: OB Limited With Biometrics Date of Exam: 01/08 Exam# [id number] Ordering Dr: María Elena Solomon DO PROCEDURE: OB LIMITED WITH BIOMETRICS 01/08/2025 REASON FOR EXAM: FOLLOW UP RUBBER OFF TECHNIQUE: High resolution obstetric ultrasound performed using [...] WEIGHT PERCENTILE (24+ weeks): 7.2% Reading Location: [id number] CC: AMEE Flower; Dr. María Elena Solomon DO Human Resource Manager: Signed Normal [facility] Absolute lymphocyte countOrd ered By: María Elena Hodge on 01-06-2025 Lymphocytes Auto (Unsp spec) [#/Vol] 2.08 10*3/uL 0.83-4.51 [facility] Absolute neutrophil countOrd ered By: María Elena Hodge on 01-06-2025 Neutrophils (Bld) [#/Vol] 11.0 10*3/uL High 2.0-7.7 [facility] Automated lymphocyte count a s percentage of total leukocytesOrdered By: María Elena Hodge on 01-06-2025 Lymphocytes/100 WBC Auto (Unsp spec) 14.5 % Low 19-41 [facility] Basophil percentageOrdered B y: María Elena Hodge on 01-06-2025 Basophils/100 WBC (Bld) 0.3 % 0-1 [facility] CBC W/Diff, Automatedon 12-10 Absolute Lymph 2.08 X10 3/uL Normal 0.83-4.51 [facility] Comment on above: Performed By: #### L 509.8000, L3890.6005, L3890.6100, L3890.6300, L100.0100, BTS, L501.9985, L509.4005 #### [facility] [address] [place], [address] Absolute Neut 11.0 X10 3/uL High 2.0-7.7 [facility] Comment on above: Performed By: #### L 509.8000, L3890.6005, L3890.6100, L3890.6300, L100.0100, BTS, L501.9985, L509.4005 #### [facility] [address] [place], [address] Basophils/100 WBC (Bld) 0.3 % Normal 0-1 [facility] Comment on above: Performed By: #### L 509.8000, L3890.6005, L3890.6100, L3890.6300, L100.0100, BTS, L501.9985, L509.4005 #### [facility] [address] [place], [address] Eosinophils/100 WBC (Bld) 1.2 % Normal 0-5 [facility] Comment on above: Performed By: #### L 509.8000, L3890.6005, L3890.6100, L3890.6300, L100.0100, BTS, L501.9985, L509.4005 #### [facility] [address] [place], [address] Erythrocyte distribution width (RBC) [Ratio] 12.7 % Normal 11.6-14.6 [facility] Comment on above: Performed By: #### L 509.8000, L3890.6005, L3890.6100, L3890.6300, L100.0100, BTS, L501.9985, L509.4005 #### [facility] [address] [place], [address] Hematocrit (Bld) [Volume fraction] 30.4 % Low 37-47 [facility] Comment on above: Performed By: #### L 509.8000, L3890.6005, L3890.6100, L3890.6300, L100.0100, BTS, L501.9985, L509.4005 #### [facility] [address] [place], [address] Hemoglobin (Bld) [Mass/Vol] 10.2 g/dL Low 12.0-15.0 [facility] Comment on above: Performed By: #### L 509.8000, L3890.6005, L3890.6100, L3890.6300, L100.0100, BTS, L501.9985, L509.4005 #### [facility] [address] [facility] [place], [address] IG% 1.700 High 0.0-0.9 [facility] Comment on above: Result Comment: IG% - Immature Granulocytes (promyelocytes, myelocytes and metamyelocytes) > 1% indicates that a LEFT SHIFT is Present. Performed By: #### L 509.8000, L3890.6005, L3890.6100, L3890.6300, L100.0100, BTS, L501.9985, L509.4005 #### [facility] [address] [place], [address] Lymphocytes/100 WBC (Bld) 14.5 % Low 19-41 [facility] Comment on above: Performed By: #### L 509.8000, L3890.6005, L3890.6100, L3890.6300, L100.0100, BTS, L501.9985, L509.4005 #### [facility] [address] [place], [address] MCH (RBC) [Entitic mass] 30.4 pg Normal 27.0-32.0 [facility] Comment on above: Performed By: #### L 509.8000, L3890.6005, L3890.6100, L3890.6300, L100.0100, BTS, L501.9985, L509.4005 #### [facility] [address] [place], [address] MCHC (RBC) [Mass/Vol] 33.6 g/dL Normal 32-36 [facility] Comment on above: Performed By: #### L 509.8000, L3890.6005, L3890.6100, L3890.6300, L100.0100, BTS, L501.9985, L509.4005 #### [facility] [address] [place], [address] MCV (RBC) [Entitic vol] 90.7 fL Normal 81-99 [facility] Comment on above: Performed By: #### L 509.8000, L3890.6005, L3890.6100, L3890.6300, L100.0100, BTS, L501.9985, L509.4005 #### [facility] [address] [place], [address] Monocytes/100 WBC (Bld) 5.4 % Normal 0-10 [facility] Comment on above: Performed By: #### L 509.8000, L3890.6005, L3890.6100, L3890.6300, L100.0100, BTS, L501.9985, L509.4005 #### [facility] [address] [place], [address] Neutrophils/100 WBC (Bld) 76.9 % High 47-70 [facility] Comment on above: Performed By: #### L 509.8000, L3890.6005, L3890.6100, L3890.6300, L100.0100, BTS, L501.9985, L509.4005 #### [facility] [address] [place], [address] Nucleated RBC (Bld) [#/Vol] 0 10*3/uL Normal 0-5 [facility] Comment on above: Performed By: #### L 509.8000, L3890.6005, L3890.6100, L3890.6300, L100.0100, BTS, L501.9985, L509.4005 #### [facility] [address] [place], [address] Platelet mean volume (Bld) [Entitic vol] 11.4 fL Normal 6.2-12.0 [facility] Comment on above: Performed By: #### L 509.8000, L3890.6005, L3890.6100, L3890.6300, L100.0100, BTS, L501.9985, L509.4005 #### [facility] [address] [place], [address] Platelets (Bld) [#/Vol] 268 10*3/uL Normal 150-450 [facility] Comment on above: Performed By: #### L 509.8000, L3890.6005, L3890.6100, L3890.6300, L100.0100, BTS, L501.9985, L509.4005 #### [facility] [address] [place], [address] RBC (Bld) [#/Vol] 3.35 10*6/uL Low 4.2-5.[address] [facility] Comment on above: Performed By: #### L 509.8000, L3890.6005, L3890.6100, L3890.6300, L100.0100, BTS, L501.9985, L509.4005 #### [facility] [address] [place], [address] RDW SD 41.2 fl Normal 35.1-43.9 [facility] Comment on above: Performed By: #### L 509.8000, L3890.6005, L3890.6100, L3890.6300, L100.0100, BTS, L501.9985, L509.4005 #### [facility] [address] [place], [address] WBC (Bld) [#/Vol] 14.3 10*3/uL High 4.4-11.[address] [facility] Comment on above: Performed By: #### L 509.8000, L3890.6005, L3890.6100, L3890.6300, L100.0100, BTS, L501.9985, L509.4005 #### [facility] [address] [facility] [place], [address] Eosinophil percentageOrdered By: María Elena Hodge on 01-06-2025 Eosinophils/100 WBC (Bld) 1.2 % 0-5 [facility] Erythrocyte distribution wid th ratioOrdered By: María Elena Hodge on 01-06-2025 Erythrocyte distribution width (RBC) [Ratio] 12.7 % 11.6-14.6 [facility] Erythrocyte distribution wid th standard deviationOrdered By: María Elena Hodge on 01-06-2025 Erythrocyte distribution width (RBC) [Ratio] 41.2 fl 35.1-43.9 [facility] Glucose Challenge Gest 1H 50 isaiah 01-06-2025 GLU GEST 50g 1H 126 mg/dL Normal 70-140 [facility] Comment on above: Performed By: #### L 509.8000, L3890.6005, L3890.6100, L3890.6300, L100.0100, BTS, L501.9985, L509.4005 #### [facility] [address] [place], [address] Glucose measurement at 2 armani rs post-dose gestational glucose tolerance testOrdered By: María Elena Hodge on 01-06-2025 Glucose [Mass/Vol] 126 mg/dL 70-140 [facility] HIVon 01-06-2025 HIV Non-Reactive Normal Nonreactive [facility] Comment on above: Result Comment: Non- Reactive Reactive Repeatedly reactive samples must be confirmed according to CDC recommended confirmatory algorithms. The subresults for either HIVAG or AHIV can be used as an aid in the selection of the confirmation algorithm for reactive samples. Send out specimens with Reactive results to [facility] for confirmation. Order the HIV antibody detection and differentiation: lc#[id number] Performed By: #### L 509.8000, L3890.6005, L3890.6100, L3890.6300, L100.0100, BTS, L501.9985, L509.4005 #### [facility] [address] [place], [address] Hematocrit Auto (Bld) [Volum e fraction]Ordered By: María Elena Hodge on 01-06-2025 Hematocrit (Bld) [Volume fraction] 30.4 % Low 37-47 [facility] Hemoglobin measurementOrdere d By: María Elena Hodge on 01-06-2025 Hemoglobin (Bld) [Mass/Vol] 10.2 g/dL Low 12.0-15.0 [facility] Immature granulocytes/100 WB C Auto (Bld)Ordered By: María Eelna Hodge on 01-06-2025 Immature granulocytes/100 WBC (Bld) 1.700 % High 0.0-0.9 [facility] Comment on above: IG% - Immature Granu locytes (promyelocytes, myelocytes and metamyelocytes) > 1% indicates that a LEFT SHIFT is Present. Laboratory - Chemistry and C hemistry - challengeOrdered By: Elle Poe on 01-06-2025 Glucose Ql (U) Negative [facility] - UrinalysisOrder ed By: Elle Poe on 01-06-2025 Protein Ql (U) Negative [facility] MCV (mean corpuscular volume ) determinationOrdered By: María Elena Hodge on 01-06-2025 MCV (RBC) [Entitic vol] 90.7 fL 81-99 [facility] Mean corpuscular hemoglobin (MCH) determinationOrdered By: María Elena Hodge on 01-06-2025 MCH (RBC) [Entitic mass] 30.4 pg 27.0-32.0 [facility] Mean corpuscular hemoglobin concentration (MCHC) determinationOrdered By: María Elena Hodge on 01-06-2025 MCHC (RBC) [Mass/Vol] 33.6 g/dL 32-36 [facility] Mean platelet volume determi nationOrdered By: María Elena Hodge on 01-06-2025 Platelet mean volume (Bld) [Entitic vol] 11.4 fL 6.2-12.0 [facility] Monocyte percentageOrdered B y: María Elena Hodge on 01-06-2025 Monocytes/100 WBC (Bld) 5.4 % 0-10 [facility] Neutrophil percentageOrdered By: María Elena Hodge on 01-06-2025 Neutrophils/100 WBC (Bld) 76.9 % High 47-70 [facility] No Panel InformationOrdered By: María Elena Hodge on 01-06-2025 HIV (1&2) Antibody Non-Reactive Nonreactive [facility] Comment on above: Non-ReactiveReactive Repeatedly reactive samples must be confirmed according to CDC recommended confirmatory algorithms. The subresults for either HIVAG or AHIV can be used as an aid in the selection of the confirmation algorithm for reactive samples.Send out specimens with Reactive results to [facility] for confirmation.Order the HIV antibody detection and differentiation: lc#[id number] Nucleated red blood cell per centageOrdered By: María Elena Hodge on 01-06-2025 Nucleated RBC/100 WBC (Bld) [Ratio] 0 % 0-5 [facility] Customer Service Engineer Office Visit Reporton 01-06-2025 Customer Service Engineer Office Visit Report [facility] [address], [address] [place] [address] OFFICE VISIT Date of Service: 01/06/25 MR#: [id number] Acct: [id number] Name: MADDIE TORRE Rep #: [id number] : 2000 Provider: AMAIRANI Sainz ams Age/Sex: 24/F Location: [facility] Status: Signed Intake Vital Signs 09/23/24 13:32 12/18/24 14:05 01/06/25 12:59 Height 5 ft 2 in 5 ft 2 in 5 ft 2 in Weight: 188 lb 6 oz BMI 34.4 BP 131/86 H Intake Visit Reasons: 28 wk ob/glucose Chief Complaint: 28wk OB Creative Project Manager Required: No Is patient in pain?: No [...] occupational status: 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 Date Name GA/Weeks Outcome Route Bth Weight Gen Labor [facility]gth [facility] FOB 01/09/24 5 spontaneous HPI 28 [...] ?-???-???-???-???-???-? ??- Negative 150 -???-???-???-???-???-?? ?-???-???-???-???-???-? ??- - no vb cr amping 10/22/24 -???-???-???-???-???-?? ?-???-???-???-???-???-? ??- 17w 2d 172 lb 4 oz (+52 lb 4 oz) 118/74 Negative -???-???-???-???-???-?? ?-???-???-???-???-???-? ??- Negative 145 -???-???-???-???-???-?? ?-???-???-???-???-???-? ??- -No VB. No (more content not included)... Normal [facility] Platelet countOrdered By: Kendall Hodge on 01-06-2025 Platelets (d) [#/Vol] 268 10*3/uL 150-450 [facility] RBC Auto (d) [#/Vol]Ordere d By: María Elena Hodge on 01-06-2025 RBC (Bld) [#/Vol] 3.35 10*6/uL Low 4.2-5.[address] [facility] Syphilis Antibodieson 2024 Syphilis Abs Non-Reactive Normal Nonreactive [facility] Comment on above: Performed By: #### L 509.8000, L3890.6005, L3890.6100, L3890.6300, L100.0100, BTS, L501.9985, L509.4005 #### [facility] [address] [place], [address] White blood cell (WBC) count Ordered By: María Elena Hodge on 01-06-2025 WBC (Bld) [#/Vol] 14.3 10*3/uL High 4.4-11.[address] [facility] Laboratory - Chemistry and C hemistry - challengeOrdered By: María Elena Hodge on 12-18-2024 Glucose Ql (U) Negative [facility] - UrinalysisOrder ed By: María Elena Hodge on 12-18-2024 Protein Ql (U) Negative [facility] Customer Service Engineer Office Visit Reporton 12-18-2024 Customer Service Engineer Office Visit Report [facility] [address], [address] [place] [address] OFFICE VISIT Date of Service: 12/18/24 MR#: [id number] Acct: [id number] Name: HARVEYMADDIE GIORDANOPerez Rep #: [id number] : 2000 Provider: Dr. 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 (more content not included)... Normal [facility] - Chemistry and C hemistry - challengeOrdered By: Chioma Springer on 11-18-2024 Glucose Ql (U) Negative [facility] - UrinalysisOrder ed By: Chioma Springer on 11-18-2024 Protein Ql (U) Negative [facility] Customer Service Engineer Office Visit Reporton 11-18-2024 Customer Service Engineer Office Visit Report [address], [address] [place] [address] OFFICE VISIT Date of Service: 11/18/24 MR#: [id number] Acct: [id number] Name: MADDIE TRORE Rep #: [id number] : 2000 Provider: AMEE diaz Age/Sex: 24/F Location: [facility] Status: Signed Intake Vital Signs 09/23/24 13:32 10/22/24 14:18 11/18/24 15:40 Height 5 ft 2 in 5 ft 2 in 5 ft 2 in Weight: 177 lb 2 oz BMI 32.3 BP 114/72 Intake Visit Reasons: 21 wk ob Chief Complaint: 21 Week OB Creative Project Manager Required: No Is patient in pain?: No [...] 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 (more content not included)... Normal [facility] OB Anatomy w/ Transvaginalon 11-10-2024 OB Anatomy w/ Transvaginal [facility] [address] [place], [place] [address] OB Anatomy w/ Transvaginal MR#: [id number] Acct: [id number] Name: MADDIE TORRE Rep #: [id number] : 2000 F 24 From: Franklyn danielle MD PCP: AMEE Quinteros Status: REG CLI Study: OB Anatomy w/ Transvaginal Date of Exam: 11/10 Exam# [id number] Ordering Dr: Radha Peters PROCEDURE: OB ANATOMY [...] cysts in both choroid plexus. Reading Location: [id number] CC: AMEE Flower; Dr. Radha Peters MD Human Resource Manager: Signed Normal [facility] Chlamydia and Neisseria gono rrhoeae detection by PCROrdered By: Chioma Springer on 10-22-2024 Chlamydia/Neisseria (PCR) [facility] - Chemistry and C hemistry - challengeOrdered By: Chioma Springer on 10-22-2024 Glucose Ql (U) Negative [facility] - UrinalysisOrder ed By: Chioma Springer on 10-22-2024 Protein Ql (U) Negative [facility] M8200.2203on 10-22-2024 M8200.2203 Chlamydia Trachomati s PCR NEGATIVE for Chlamydia trachomatis N. gonorrhoeae PCR Negative for N. gonorrhoeae Normal [facility] Comment on above: Performed By: #### L 509.8000, L3890.6005, L3890.6100, L3890.6300, L100.0100, BTS, L501.9985, L509.4005 #### [facility] [address] [place], [address] Customer Service Engineer Office Visit Reporton 10-22-2024 Customer Service Engineer Office Visit Report [facility] [address], [address] [place] [address] OFFICE VISIT Date of Service: 10/22/24 MR#: [id number] Acct: [id number] Name: MADDIE TORRE Rep #: [id number] : 2000 Provider: AMEE diaz Age/Sex: 24/F Location: [facility] Status: Signed Intake Vital Signs 09/23/24 13:32 10/22/24 14:18 Height 5 ft 2 in 5 ft 2 in Weight: 172 lb 4 oz BMI 31.5 BP 118/74 Intake Visit Reasons: 17 wk ob Chief Complaint: 17 Week OB Creative Project Manager Required: No Is patient in pain?: No [...] spouse 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 ??- (more content not included)... Normal [facility] - Chemistry and C hemistry - challengeon 09-23-2024 Glucose Ql (U) Negative [facility] - Urinalysison Protein Ql (U) Negative [facility] Customer Service Engineer Office Visit Reporton 09-23-2024 Customer Service Engineer Office Visit Report [facility] [address], [address] [place] [address] OFFICE VISIT Date of Service: 09/23/24 MR#: [id number] Acct: [id number] Name: MADDIE TORRE Rep #: [id number] : 2000 Provider: Dr. 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 Date Name GA/Weeks Outcome Route Bth Weight Infant Gen Labor L[facility]est[facility] FOB 01/09/24 5 spontaneous HPI 12wk [...] Trimester First (more content not included)... Normal [facility] Miscellaneous procedureOrder ed By: Elle Poe on 09-15-2024 Miscellaneous Test Comment SEE SCANNED REPORT [facility] NATERAon 09-15-2024 NATURA SEE SCANNED REPORT Normal [facility] [place] Comment on above: Performed By: #### L 900.0098 ####[facility] [address] [place] [place], [address] Chlamydia/GC SHAYLEE aptimaon CHLAMY,NUC ACID Positive Abnormal Negative [facility] Comment on above: Performed By: #### L 509.8000, L3890.6005, L3890.6100, L3890.6300, L100.0100, BTS, L501.9985, L509.4005 #### [facility] [address] [place], [address] GC BY NUC ACID Negative Normal Negative [facility] Comment on above: Result Comment: Perf ormed at: =G - [facility] [address] [id number] Rotary Machine Operator: Ilsa Crystal MD, Phone: [phone] Performed By: #### L 509.8000, L3890.6005, L3890.6100, L3890.6300, L100.0100, BTS, L501.9985, L509.4005 #### [facility] [address] [place], [address] HIV - WCHon 08-25-2024 HIV Non-Reactive Normal Nonreactive [facility] Comment on above: Order Comment: Reaso n for Exam: Performed By: #### L 509.8000, L3890.6005, L3890.6100, L3890.6300, L100.0100, BTS, L501.9985, L509.4005 #### [facility] [address] [place], [place], [id number] Hepatitis B Surface Antigeno n 08-25-2024 HEP B Surf Ag Non-Reactive Normal Nonreactive [facility] Comment on above: Order Comment: Reaso n for Exam: Performed By: #### L 509.8000, L3890.6005, L3890.6100, L3890.6300, L100.0100, BTS, L501.9985, L509.4005 #### [facility] [address] [place], [place], [id number] Hepatitis C Antibodyon 08-25 Hepatitis C AB Non-Reactive Normal Nonreactive [facility] Comment on above: Order Comment: Reaso n for Exam: Result Comment: Non Reactive: < 0.8 Equivocal: >/= 0.8 to < 1.0 Reactive: >/= 1.0 The CDC requires that a reactive/equivocal HCV antibody result be sent out for confirmation. HCV Quant by PCR testing. Performed By: #### L 509.8000, L3890.6005, L3890.6100, L3890.6300, L100.0100, BTS, L501.9985, L509.4005 ####[facility] [address] [place], [place], [id number]) L509.8000on 08-25-2024 Syphilis Abs Non-Reactive Normal [facility] Comment on above: Order Comment: Reaso n for Exam: Performed By: #### L 509.8000, L3890.6005, L3890.6100, L3890.6300, L100.0100, BTS, L501.9985, L509.4005 #### [facility] [address] [place], [address] Rubella IgGon 08-25-2024 Rubella IgG Reactive Normal Nonreactive [facility] Comment on above: Order Comment: Reaso n for Exam: Result Comment: Anti body Results Interpretation of Immune Status Non Reactive Presumed Non-Immune Equivocal Equivocal Reactive Presumed Immune Performed By: #### L 509.8000, L3890.6005, L3890.6100, L3890.6300, L100.0100, BTS, L501.9985, L509.4005 #### [facility] [address] [place], [place], [id number] Urine Cultureon 08-23-2024 URC Culture exhibits no growth. Normal [facility] Comment on above: Performed By: #### L 509.8000, L3890.6005, L3890.6100, L3890.6300, L100.0100, BTS, L501.9985, L509.4005 #### [facility] [address] [place], [place], [id number] Absolute neutrophil countOrd ered By: Elle Poe on 08-22-2024 Neutrophils (Bld) [#/Vol] 6.2 10*3/uL 2.0-7.7 [facility] Basophil percentageOrdered B y: Elle Poe on 08-22-2024 Basophils/100 WBC (Bld) 0.4 % 0-1 [facility] C. trachomatis rRNA SHAYLEE+prob e Ql (Unsp spec)Ordered By: Elle Poe on 08-22-2024 Chlamydia DNA (SHAYLEE) Positive High Negative [facility] CBC W/Diff, Automatedon 08-10 Absolute Lymph 2.27 X10 3/uL Normal 0.83-4.51 [facility] Comment on above: Performed By: #### L 509.8000, L3890.6005, L3890.6100, L3890.6300, L100.0100, BTS, L501.9985, L509.4005 #### [facility] [address] [place], [address] Absolute Neut 6.2 X10 3/uL Normal 2.0-7.7 [facility] Comment on above: Performed By: #### L 509.8000, L3890.6005, L3890.6100, L3890.6300, L100.0100, BTS, L501.9985, L509.4005 #### [facility] [address] [place], [address] Basophils/100 WBC (Bld) 0.4 % Normal 0-1 [facility] Comment on above: Performed By: #### L 509.8000, L3890.6005, L3890.6100, L3890.6300, L100.0100, BTS, L501.9985, L509.4005 #### [facility] [address] [place], [address] Eosinophils/100 WBC (Bld) 2.2 % Normal 0-5 [facility] Comment on above: Performed By: #### L 509.8000, L3890.6005, L3890.6100, L3890.6300, L100.0100, BTS, L501.9985, L509.4005 #### [facility] [address] [place], [address] Erythrocyte distribution width (RBC) [Ratio] 12.2 % Normal 11.6-14.6 [facility] Comment on above: Performed By: #### L 509.8000, L3890.6005, L3890.6100, L3890.6300, L100.0100, BTS, L501.9985, L509.4005 #### [facility] [address] [place], [address] Hematocrit (Bld) [Volume fraction] 37.7 % Normal 37-47 [facility] Comment on above: Performed By: #### L 509.8000, L3890.6005, L3890.6100, L3890.6300, L100.0100, BTS, L501.9985, L509.4005 #### [facility] [address] [place], [address] Hemoglobin (Bld) [Mass/Vol] 12.7 g/dL Normal 12.0-15.0 [facility] Comment on above: Performed By: #### L 509.8000, L3890.6005, L3890.6100, L3890.6300, L100.0100, BTS, L501.9985, L509.4005 #### [facility] [address] [place], [address] IG% 0.400 Normal 0.0-0.9 [facility] Comment on above: Result Comment: IG% - Immature Granulocytes (promyelocytes, myelocytes and metamyelocytes) > 1% indicates that a LEFT SHIFT is Present. Performed By: #### L 509.8000, L3890.6005, L3890.6100, L3890.6300, L100.0100, BTS, L501.9985, L509.4005 #### [facility] [address] [place], [address] Lymphocytes/100 WBC (Bld) 23.7 % Normal 19-41 [facility] Comment on above: Performed By: #### L 509.8000, L3890.6005, L3890.6100, L3890.6300, L100.0100, BTS, L501.9985, L509.4005 #### [facility] [address] [place], [address] MCH (RBC) [Entitic mass] 29.5 pg Normal 27.0-32.0 [facility] Comment on above: Performed By: #### L 509.8000, L3890.6005, L3890.6100, L3890.6300, L100.0100, BTS, L501.9985, L509.4005 #### [facility] [address] [place], [address] MCHC (RBC) [Mass/Vol] 33.7 g/dL Normal 32-36 [facility] Comment on above: Performed By: #### L 509.8000, L3890.6005, L3890.6100, L3890.6300, L100.0100, BTS, L501.9985, L509.4005 #### [facility] [address] [place], [address] MCV (RBC) [Entitic vol] 87.5 fL Normal 81-99 [facility] Comment on above: Performed By: #### L 509.8000, L3890.6005, L3890.6100, L3890.6300, L100.0100, BTS, L501.9985, L509.4005 #### [facility] [address] [place], [address] Monocytes/100 WBC (Bld) 8.4 % Normal 0-10 [facility] Comment on above: Performed By: #### L 509.8000, L3890.6005, L3890.6100, L3890.6300, L100.0100, BTS, L501.9985, L509.4005 #### [facility] [address] [place], [address] Neutrophils/100 WBC (Bld) 64.9 % Normal 47-70 [facility] Comment on above: Performed By: #### L 509.8000, L3890.6005, L3890.6100, L3890.6300, L100.0100, BTS, L501.9985, L509.4005 #### [facility] [address] [place], [address] Nucleated RBC (Bld) [#/Vol] 0 10*3/uL Normal 0-5 [facility] Comment on above: Performed By: #### L 509.8000, L3890.6005, L3890.6100, L3890.6300, L100.0100, BTS, L501.9985, L509.4005 #### [facility] [address] [place], [address] Platelet mean volume (Bld) [Entitic vol] 11.8 fL Normal 6.2-12.0 [facility] Comment on above: Performed By: #### L 509.8000, L3890.6005, L3890.6100, L3890.6300, L100.0100, BTS, L501.9985, L509.4005 #### [facility] [address] [place], [address] Platelets (Bld) [#/Vol] 264 10*3/uL Normal 150-450 [facility] Comment on above: Performed By: #### L 509.8000, L3890.6005, L3890.6100, L3890.6300, L100.0100, BTS, L501.9985, L509.4005 #### [facility] [address] [place], [address] RBC (Bld) [#/Vol] 4.31 10*6/uL Normal 4.2-5.[address] [facility] Comment on above: Performed By: #### L 509.8000, L3890.6005, L3890.6100, L3890.6300, L100.0100, BTS, L501.9985, L509.4005 #### [facility] [address] [place], [address] RDW SD 39.5 fl Normal 35.1-43.9 [facility] Comment on above: Performed By: #### L 509.8000, L3890.6005, L3890.6100, L3890.6300, L100.0100, BTS, L501.9985, L509.4005 #### [facility] [address] [place], [address] WBC (Bld) [#/Vol] 9.6 10*3/uL Normal 4.4-11.0 [facility] [place] Comment on above: Performed By: #### L 509.8000, L3890.6005, L3890.6100, L3890.6300, L100.0100, BTS, L501.9985, L509.4005 #### [facility] [address] [place], [address] Eosinophil percentageOrdered By: Elle Poe on 08-22-2024 Eosinophils/100 WBC (Bld) 2.2 % 0-5 [facility] Erythrocyte distribution wid th ratioOrdered By: Elle Poe on 08-22-2024 Erythrocyte distribution width (RBC) [Ratio] 12.2 % 11.6-14.6 [facility] Erythrocyte distribution wid th standard deviationOrdered By: Elle Poe on 08-22-2024 Erythrocyte distribution width (RBC) [Entitic vol] 39.5 fL 35.1-43.9 [facility] HIV 1+2 Ab+HIV1 p24 Ag IA Ql Ordered By: Elle Poe on 08-22-2024 HIV (1&2) Antibody Non-Reactive Nonreactive [facility] Hematocrit Auto (Bld) [Volum e fraction]Ordered By: Elle Poe on 08-22-2024 Hematocrit (Bld) [Volume fraction] 37.7 % 37-47 [facility] Hemoglobin A1con 08-22-2024 HbA1c (Bld) [Mass fraction] 5.0 % Normal 3.8-5.6 [facility] Comment on above: Result Comment: Norm al < 5.7 % Prediabetic 5.7 - 6.4 % Diabetic >or= 6.5 % Please note range changes. Performed By: #### L 509.8000, L3890.6005, L3890.6100, L3890.6300, L100.0100, BTS, L501.9985, L509.4005 #### [facility] [address] [place], [address] Hemoglobin A1c percentageOrd ered By: Elle Poe on 08-22-2024 HbA1c (Bld) [Mass fraction] 5.0 % 3.8-5.6 [facility] Comment on above: Normal < 5.7 % Predi abetic 5.7 - 6.4 % Diabetic >or= 6.5 % Please note range changes. Hemoglobin measurementOrdere d By: Elle Poe on 08-22-2024 Hemoglobin (Bld) [Mass/Vol] 12.7 g/dL 12.0-15.0 [facility] Hepatitis B surface antigen detectionOrdered By: Elle Poe on 08-22-2024 Hepatitis B Surface Antigen Non-Reactive Nonreactive [facility] Hepatitis C virus antibody a ssayOrdered By: Elle Poe on 08-22-2024 Hepatitis C Antibody Non-Reactive Nonreactive [facility] Comment on above: Non Reactive: < 0.8 Equivocal: >/= 0.8 to < 1.0 Reactive: >/= 1.0The CDC requires that a reactive/equivocal HCV antibody result be sent out for confirmation. HCV Quant by PCR testing. Immature granulocytes/100 WB C Auto (Bld)Ordered By: Elle Poe on 08-22-2024 Immature granulocytes/100 WBC (Bld) 0.400 % 0.0-0.9 [facility] Comment on above: IG% - Immature Granu locytes (promyelocytes, myelocytes and metamyelocytes) > 1% indicates that a LEFT SHIFT is Present. Lymphocytes Auto (Unsp spec) [#/Vol]Ordered By: Elle Poe on 08-22-2024 Lymphocytes (Bld) [#/Vol] 2.27 10*3/uL 0.83-4.51 [facility] Lymphocytes/100 WBC Auto (Un sp spec)Ordered By: Elle Poe on 08-22-2024 Lymphocytes/100 WBC (Bld) 23.7 % 19-41 [facility] MCV (mean corpuscular volume ) determinationOrdered By: Elle Poe on 08-22-2024 MCV (RBC) [Entitic vol] 87.5 fL 81-99 [facility] Mean corpuscular hemoglobin (MCH) determinationOrdered By: Elle Poe on 12-13-2024 MCH (RBC) [Entitic mass] 29.5 pg 27.0-32.0 [facility] Mean corpuscular hemoglobin concentration (MCHC) determinationOrdered By: Elle Poe on 08-22-2024 MCHC (RBC) [Mass/Vol] 33.7 g/dL 32-36 [facility] Mean platelet volume determi nationOrdered By: Elle Poe on 08-22-2024 Platelet mean volume (Bld) [Entitic vol] 11.8 fL 6.2-12.0 [facility] Monocyte percentageOrdered B y: Elle Poe on 08-22-2024 Monocytes/100 WBC (Bld) 8.4 % 0-10 [facility] Neisseria gonorrhoeae nuclei c acid detection by amplified probe techniqueOrdered By: Elle Poe on 08-22-2024 N. gonorrhoeae DNA SHAYLEE+probe Ql (Unsp spec) Negative Negative [facility] Comment on above: Performed at: =[address] [id number] Director: Ilsa Crystal MD, Phone: [phone] Neutrophil percentageOrdered By: Elle Poe on 08-22-2024 Neutrophils/100 WBC (Bld) 64.9 % 47-70 [facility] Nucleated red blood cell per centageOrdered By: Elle Poe on 08-22-2024 Nucleated RBC/100 WBC (Bld) [Ratio] 0 % 0-5 [facility] Customer Service Engineer Office Visit Reporton 08-22-2024 Customer Service Engineer Office Visit Report [facility], [address] [place] [address] OFFICE VISIT Date of Service: 08/22/24 MR#: [id number] Acct: [id number] Name: MADDIE TORRE Rep #: [id number] : 2000 Provider: AMAIRANI Sainz ams Age/Sex: 24/F Location: [facility] [place] Status: Signed Intake Vital Signs 02/13/24 11:38 08/13/24 14:05 08/22/24 14:24 Height 5 ft 2 in 5 ft 2 in 5 ft 2 in Weight: 120 lb BMI 21.9 BP 120/86 H Intake Visit Reasons: New OB, LMP 06/23, ITZEL 03/30/25 Creative Project Manager Required: No Is patient in pain?: No [...] occupational status: employed 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 Normal [facility] Platelet countOrdered By: Delmar Poe on 08-22-2024 Platelets (Bld) [#/Vol] 264 10*3/uL 150-450 [facility] RBC Auto (Bld) [#/Vol]Ordere d By: Elle Poe on 08-22-2024 RBC (Bld) [#/Vol] 4.31 10*6/uL 4.2-5.[address] [facility] Rubella immune status IgGOrd ered By: Elle Poe on 08-22-2024 Rubella IgG Antibody Reactive Nonreactive [facility] Comment on above: Antibody Results Int erpretation of Immune Status Non Reactive Presumed Non-Immune Equivocal Equivocal Reactive Presumed Immune Transvaginal w/Preg USon Transvaginal w/Preg US [facility] [address] [place], [place] [id number] Transvaginal w/Preg US MR#: [id number] Acct: [id number] Name: MADDIE TORRE Rep #: [id number] : 2000 F 24 From: Sarthak Rosas MD PCP: AMEE Quinteros Status: REG CLI Study: Transvaginal w/Preg US Date of Exam: 08/22/24 Exam# [id number] Ordering Dr: Radha Peters [id number] STUDY: FIRST TRIMESTER OBSTETRICAL ULTRASOUND REASON FOR [...] CC: AMEE Flower; Dr. Radha Peters MD Human Resource Manager: Signed Normal [facility] Treponema sp Ab Ql (S)Ordere d By: Elle Poe on 08-22-2024 Syphilis Total Antibody Non-Reactive [facility] Type AND Screenon 08-22-2024 Ab SCREEN GEL Negative Normal [facility] Comment on above: Order Comment: PN Performed By: #### L 509.8000, L3890.6005, L3890.6100, L3890.6300, L100.0100, BTS, L501.9985, L509.4005 #### [facility] [address] [place], [place], [id number] ABO and Rh group Nom (Bld) Blood group O Rh(D) positive Normal [facility] Comment on above: Order Comment: PN Performed By: #### L 509.8000, L3890.6005, L3890.6100, L3890.6300, L100.0100, BTS, L501.9985, L509.4005 #### [facility] [address] [place], [address] Urine cultureOrdered By: Chas Poe on 08-22-2024 Bacteria identified Cx Nom (U) Culture exhibits no growth. [facility] White blood cell (WBC) count Ordered By: Elle Poe on 08-22-2024 WBC (Bld) [#/Vol] 9.6 10*3/uL 4.4-11.0 [facility] [place] Customer Service Engineer Office Visit Reporton 08-13-2024 Customer Service Engineer Office Visit Report [facility] [address], [address] [place] [address] OFFICE VISIT Date of Service: 08/13/24 MR#: [id number] Acct: [id number] Name: MADDIE TORRE Rep #: [id number] : 2000 Provider: Dr. 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 Normal [facility] HCG ( test) QlOrder ed By: Radha Peters on 08-11-2024 Human Chorionic Gonadotropin, Quant 20531 mIU/mL High <4 [facility] Comment on above: hCG levels with Gest ational AgeGestational Age hCG mIU/mL (IU/L)0.2 - 1 week 5 - 501-2 weeks 50 - 5002-3 weeks 100 - 35035-5 weeks 500 - 912707-8 weeks 1000 - 683213-7 weeks 81903 - 100,0006-8 weeks 66552 - 200,0002-3 months 41604 - 100,000 Customer Service Engineer Office Visit Reporton 08-11-2024 Customer Service Engineer Office Visit Report [facility] [address], [address] [place] [address] OFFICE VISIT Date of Service: 08/11/24 MR#: [id number] Acct: [id number] Name: MADDIE TORRE Rep #: [id number] : 2000 Provider: Dr. Radha stanford MD Age/Sex: 24/F Location: [facility] Status: Signed Intake Vital Signs 02/13/24 11:38 08/11/24 11:46 Height 5 ft 2 in 5 ft 2 in Weight: 166 lb 8 oz 166 lb 6 oz BMI 30.4 30.4 BP 114/72 128/84 H Intake Visit Reasons: Spotting, new OB is next week Creative Project Manager Required: No Is patient in pain?: No Allergies No Known Allergies Allergy (Verified 08/11/24 11:51) Post menopausal: No Patient : Yes : No PFSH Medical History Spontaneous Family History Grandmother Cancer Lung-Maternal Aunt Cancer Pancreatic- Maternal Social History household members: spouse current occupational status: employed current occupation: [employer] Smoking Status: Never smoker alcohol intake: never substance use type: does not use seatbelt use: always do you feel safe at home: Yes additional social history: -Otoniel- [employer] HPI Spotting, new OB is next week [...] Cosigner Signature: Date (if applicable) CC: Normal [facility] Type AND Screenon 08-11-2024 ABO and Rh group Nom (Bld) Blood group O Rh(D) positive Normal [facility] Comment on above: Order Comment: PN Performed By: #### L 700.8000, BTS ####[facility] [id number] [place] [place], [place], [address] hCG Titer Quant., Serumon HCG QUANT. 42973 mIU/mL High 1-3 [facility] Comment on above: Result Comment: hCG levels with Gestational Age Gestational Age hCG mIU/mL (IU/L) 0.2 - 1 week 5 - 50 1-2 weeks 50 - 500 2-3 weeks 100 - 5000 3-4 weeks 500 - 69880 4-5 weeks 1000 - 19597 5-6 weeks 08173 - 100,000 6-8 weeks 61069 - 200,000 2-3 months 66998 - 100,000 Performed By: #### L 700.8000, BTS ####[facility] [id number] [place], [address] CBC W Auto Differential pane l (Bld)on 07-29-2024 Basophils (Bld) [#/Vol] 0.04 x10*3/uL Normal 0.00-0.10 [facility] Comment on above: Performed By: #### 2 276-4 #### MIGUEL GUALLPA ([id number]) [facility] ([facility]) [address] [place] [address] 97768 Basophils/100 WBC (Bld) 0.3 % Normal 0.0-2.0 [facility] Comment on above: Performed By: #### 2 276-4 #### MIGUEL GUALLPA ([id number]) [facility] ([facility]) [address] [place] [address] 26378 Eosinophils (Bld) [#/Vol] 0.16 x10*3/uL Normal 0.00-0.70 [facility] Comment on above: Performed By: #### 2 276-4 #### MIGUEL GUALLPA ([id number]) [facility] ([facility]) [address] [place] [address] 76585 Eosinophils/100 WBC (Bld) 1.3 % Normal 0.0-6.0 [facility] Comment on above: Performed By: #### 2 276-4 #### MIGUEL GUALLPA ([id number]) [facility] ([facility]) [address] [place] [address] 91344 Erythrocyte distribution width (RBC) [Ratio] 12.5 % Normal 11.5-14.5 [facility] Comment on above: Performed By: #### 2 276-4 #### MIGUEL GUALLPA ([id number]) [facility] ([facility]) [address] [place] [address] 65226 Hematocrit (Bld) [Volume fraction] 39.7 % Normal 36.0-46.0 [facility] Comment on above: Performed By: #### 2 276-4 #### MIGUEL GUALLPA ([id number]) [facility] ([facility]) [address] [place] [address] 14426 Hemoglobin (Bld) [Mass/Vol] 12.8 g/dL Normal 12.0-16.0 [facility] Comment on above: Performed By: #### 2 276-4 #### MIGUEL GUALLPA ([id number]) [facility] ([facility]) [address] [place] [address] 29739 Immature granulocytes (Bld) [#/Vol] 0.04 x10*3/uL Normal 0.00-0.70 [facility] Comment on above: Performed By: #### 2 276-4 #### MIGUEL GUALLPA ([id number]) [facility] ([facility]) [address] [place] [address] 05601 Immature granulocytes/100 WBC (Bld) 0.3 % Normal 0.0-0.9 [facility] Comment on above: Result Comment: Shelley ture Granulocyte Count (IG) includes promyelocytes, myelocytes and metamyelocytes but does not include bands. Percent differential counts (%) should be interpreted in the context of the absolute cell counts (cells/UL). Performed By: #### 2 276-4 #### MIGUEL GUALLPA ([id number]) [facility] ([facility]) [address] [place] [address] 51968 Lymphocytes (Bld) [#/Vol] 2.65 x10*3/uL Normal 1.20-4.80 [facility] Comment on above: Performed By: #### 2 276-4 #### MIGUEL GUALLPA ([id number]) [facility] ([facility]) [address] [place] [address] 72278 Lymphocytes/100 WBC (Bld) 21.9 % Normal 13.0-44.0 [facility] Comment on above: Performed By: #### 2 276-4 #### MIGUEL GUALLPA ([id number]) [facility] ([facility]) [address] [place] [address] 37350 MCH (RBC) [Entitic mass] 29.4 pg Normal 26.0-34.0 [facility] Comment on above: Performed By: #### 2 276-4 #### MIGUEL GUALLPA ([id number]) [facility] ([facility]) [address] [place] [address] 61383 MCHC (RBC) [Mass/Vol] 32.2 g/dL Normal 32.0-36.0 [facility] Comment on above: Performed By: #### 2 276-4 #### MIGUEL GUALLPA ([id number]) [facility] ([facility]) [address] [place] [address] 05552 MCV (RBC) [Entitic vol] 91 fL Normal 80-100 [facility] Comment on above: Performed By: #### 2 276-4 #### MIGUEL GUALLPA ([id number]) [facility] ([facility]) [address] [place] [address] 67115 Monocytes (Bld) [#/Vol] 0.72 x10*3/uL Normal 0.10-1.00 [facility] Comment on above: Performed By: #### 2 276-4 #### MIGUEL GUALLPA ([id number]) [facility] ([facility]) [address] [place] [address] 57862 Monocytes/100 WBC (Bld) 6.0 % Normal 2.0-10.0 [facility] Comment on above: Performed By: #### 2 276-4 #### MIGUEL GUALLPA ([id number]) [facility] ([facility]) [address] [place] [address] 06409 Neutrophils (Bld) [#/Vol] 8.49 x10*3/uL High 1.20-7.70 [facility] Comment on above: Result Comment: Perc ent differential counts (%) should be interpreted in the context of the absolute cell counts (cells/uL). Performed By: #### 2 276-4 #### MIGUEL GUALLPA ([id number]) [facility] ([facility]) [address] [place] [address] 77966 Neutrophils/100 WBC (Bld) 70.2 % Normal 40.0-80.0 [facility] Comment on above: Performed By: #### 2 276-4 #### MIGUEL GUALLPA ([id number]) [facility] ([facility]) [address] [place] [address] 53530 Nucleated RBC/100 WBC (Bld) [Ratio] 0.0 /100 WBCs Normal 0.0-0.0 [facility] Comment on above: Performed By: #### 2 276-4 #### MIGUEL GUALLPA ([id number]) [facility] ([facility]) [address] [place] [address] Platelets (Bld) [#/Vol] 308 x10*3/uL Normal 150-450 [facility] Comment on above: Performed By: #### 2 276-4 #### MGIUEL GUALLPA ([id number]) [facility] ([facility]) [address] [place] [address] RBC (Bld) [#/Vol] 4.36 x10*6/uL Normal 4.00-5.20 [facility] Comment on above: Performed By: #### 2 276-4 #### MIGUEL GUALLPA ([id number]) [facility] ([facility]) [address] [place] [address] WBC (Bld) [#/Vol] 12.1 x10*3/uL High 4.4-11.3 [facility] Comment on above: Performed By: #### 2 276-4 #### MIGUEL GUALLPA ([id number]) [facility] ([facility]) [facility] [place] [address] Choriogonadotropin.beta subu niton 07-29-2024 HCG.beta subunit Qn 257 m[IU]/mL High <5 [facility] Comment on above: Order Comment: Total HCG measurement is performed using the Daph[employer] Access Immunoassay which detects intact HCG and free beta HCG subunit. This test is not indicated for use as a tumor marker. HCG testing is performed using a different test methodology at [facility]. Direct result comparison should only be [...] By: #### 2 276-4 #### MIGUEL GUALLPA ([id number]) [facility] ([facility]) [address] [place] [address] 06980 CBC W Auto Differential pane l (Bld)on 07-25-2024 Basophils (Bld) [#/Vol] 0.03 x10*3/uL Normal 0.00-0.10 [facility] Comment on above: Performed By: #### 5 7021-8 #### MIGUEL GUALLPA ([id number]) [facility] ([facility]) [address] [place] [address] 83093 Basophils/100 WBC (Bld) 0.2 % Normal 0.0-2.0 [facility] Comment on above: Performed By: #### 5 7021-8 #### MIGUEL GUALLPA ([id number]) [facility] ([facility]) [address] [place] [address] 47765 Eosinophils (Bld) [#/Vol] 0.16 x10*3/uL Normal 0.00-0.70 [facility] Comment on above: Performed By: #### 5 7021-8 #### MIGUEL GUALLPA ([id number]) [facility] ([facility]) [address] [place] [address] 91848 Eosinophils/100 WBC (Bld) 1.2 % Normal 0.0-6.0 [facility] Comment on above: Performed By: #### 5 7021-8 #### MIGUEL GUALLPA ([id number]) [facility] ([facility]) [address] [place] [address] 48509 Erythrocyte distribution width (RBC) [Ratio] 12.3 % Normal 11.5-14.5 [facility] Comment on above: Performed By: #### 5 7021-8 #### MIGUEL GUALLPA ([id number]) [facility] ([facility]) [address] [place] [address] 64117 Hematocrit (Bld) [Volume fraction] 37.7 % Normal 36.0-46.0 [facility] Comment on above: Performed By: #### 5 7021-8 #### MIGUEL GUALLPA ([id number]) [facility] ([facility]) [address] [place] [address] 49752 Hemoglobin (Bld) [Mass/Vol] 12.6 g/dL Normal 12.0-16.0 [facility] Comment on above: Performed By: #### 5 7021-8 #### MIGUEL GUALLPA ([id number]) [facility] ([facility]) [address] [place] [address] 85890 Immature granulocytes (Bld) [#/Vol] 0.04 x10*3/uL Normal 0.00-0.70 [facility] Comment on above: Performed By: #### 5 7021-8 #### MIGUEL GUALLPA ([id number]) [facility] ([facility]) [address] [place] [address] 85463 Immature granulocytes/100 WBC (Bld) 0.3 % Normal 0.0-0.9 [facility] Comment on above: Result Comment: Shelley ture Granulocyte Count (IG) includes promyelocytes, myelocytes and metamyelocytes but does not include bands. Percent differential counts (%) should be interpreted in the context of the absolute cell counts (cells/UL). Performed By: #### 5 7021-8 #### MIGUEL GUALLPA ([id number]) [facility] ([facility]) [address] [place] [address] 05684 Lymphocytes (Bld) [#/Vol] 2.68 x10*3/uL Normal 1.20-4.80 [facility] Comment on above: Performed By: #### 5 7021-8 #### MIGUEL GUALLPA ([id number]) [facility] ([facility]) [address] [place] [address] 31183 Lymphocytes/100 WBC (Bld) 20.0 % Normal 13.0-44.0 [facility] Comment on above: Performed By: #### 5 7021-8 #### MIGUEL GUALLPA ([id number]) [facility] ([facility]) [address] [place] [address] 41729 MCH (RBC) [Entitic mass] 29.8 pg Normal 26.0-34.0 [facility] Comment on above: Performed By: #### 5 7021-8 #### MIGUEL GUALLPA ([id number]) [facility] ([facility]) [address] [place] [address] 22694 MCHC (RBC) [Mass/Vol] 33.4 g/dL Normal 32.0-36.0 [facility] Comment on above: Performed By: #### 5 7021-8 #### MIGUEL GUALLPA ([id number]) [facility] ([facility]) [address] [place] [address] 26973 MCV (RBC) [Entitic vol] 89 fL Normal 80-100 [facility] Comment on above: Performed By: #### 5 7021-8 #### MIGUEL GUALLPA ([id number]) [facility] ([facility]) [address] [place] [address] 09865 Monocytes (Bld) [#/Vol] 0.64 x10*3/uL Normal 0.10-1.00 [facility] Comment on above: Performed By: #### 5 7021-8 #### MIGUEL GUALLPA ([id number]) [facility] ([facility]) [address] [place] [address] 81505 Monocytes/100 WBC (Bld) 4.8 % Normal 2.0-10.0 [facility] Comment on above: Performed By: #### 5 7021-8 #### MIGUEL GUALLPA ([id number]) [facility] ([facility]) [address] [place] [address] 80337 Neutrophils (Bld) [#/Vol] 9.84 x10*3/uL High 1.20-7.70 [facility] Comment on above: Result Comment: Perc ent differential counts (%) should be interpreted in the context of the absolute cell counts (cells/uL). Performed By: #### 5 7021-8 #### MIGUEL GUALLPA ([id number]) [facility] ([facility]) [address] [place] [address] 73788 Neutrophils/100 WBC (Bld) 73.5 % Normal 40.0-80.0 [facility] Comment on above: Performed By: #### 5 7021-8 #### MIGUEL GUALLPA ([id number]) [facility] ([facility]) [address] [place] [address] 23375 Nucleated RBC/100 WBC (Bld) [Ratio] 0.0 /100 WBCs Normal 0.0-0.0 [facility] Comment on above: Performed By: #### 5 7021-8 #### MIGUEL GUALLPA ([id number]) [facility] ([facility]) [address] [place] [address] 70786 Platelets (Bld) [#/Vol] 291 x10*3/uL Normal 150-450 [facility] Comment on above: Performed By: #### 5 7021-8 #### MIGUEL GUALLPA ([id number]) [facility] ([facility]) [address] [place] [address] 68354 RBC (Bld) [#/Vol] 4.23 x10*6/uL Normal 4.00-5.20 [facility] Comment on above: Performed By: #### 5 7021-8 #### MIGUEL GUALLPA ([id number]) [facility] ([facility]) [address] [place] [address] 67915 WBC (Bld) [#/Vol] 13.4 x10*3/uL High 4.4-11.3 [facility] Comment on above: Performed By: #### 5 7021-8 #### MIGUEL GUALLPA ([id number]) [facility] ([facility]) [address] [place] [address] 08999 Calcidiolon 07-25-2024 25-hydroxyvitamin D3 [Mass/Vol] 18 ng/mL Low 30-100 [facility] Comment on above: Order Comment: Defic iency: < 20 ng/mlInsufficiency: 20-29 ng/mlSufficiency: 30-100 ng/mlThis assay accurately quantifies the sum of Vitamin D3, 25-Hydroxy and Vitamin D2,25-Hydroxy. Performed By: #### 2 276-4 #### MIGUEL GUALLPA ([id number]) [facility] ([facility]) [address] [place] [address] 19067 Choriogonadotropin.beta subu niton 07-25-2024 HCG.beta subunit Qn 16 m[IU]/mL High <5 [facility] Comment on above: Order Comment: Total HCG measurement is performed using the [employer] [place] Access Immunoassay which detects intact HCG and free beta HCG subunit. This test is not indicated for use as a tumor marker. HCG testing is performed using a different test methodology at [facility] than other [facility]. Direct result comparison should only be [...] By: #### 2 1198-7 #### MIGUEL GUALLPA ([id number]) [facility] ([facility]) [address] [place] [address] 51578 Cobalaminson 07-25-2024 Cobalamin (Vitamin B12) [Mass/Vol] 166 pg/mL Low 211-911 [facility] Comment on above: Performed By: #### 2 276-4 #### MIGUEL GUALLPA ([id number]) [facility] ([facility]) [address] [place] [address] 48341 Comprehensive metabolic 2000 panelon 07-25-2024 Albumin BCP dye [Mass/Vol] 4.4 g/dL Normal 3.4-5.0 [facility] Comment on above: Performed By: #### 2 4323-8 #### MIGUEL GUALLPA ([id number]) [facility] ([facility]) [address] [place] [address] 70626 ALP [Catalytic activity/Vol] 70 U/L Normal 33-110 [facility] Comment on above: Performed By: #### 2 4323-8 #### MIGUEL GUALLPA ([id number]) [facility] ([facility]) [address] [place] [address] 46965 ALT With P-5'-P [Catalytic activity/Vol] 14 U/L Normal 7-45 [facility] Comment on above: Result Comment: Erlinda ents treated with Sulfasalazine may generate falsely decreased results for ALT. Performed By: #### 2 4323-8 #### MIGUEL GUALLPA ([id number]) [facility] ([facility]) [address] [place] [address] Anion gap [Moles/Vol] 9 mmol/L Low 10-20 [facility] Comment on above: Performed By: #### 2 4323-8 #### MIGUEL GUALLPA ([id number]) [facility] ([facility]) [address] [place] [address] AST With P-5'-P [Catalytic activity/Vol] 15 U/L Normal 9-39 [facility] Comment on above: Performed By: #### 2 432-8 #### MIGUEL GUALLPA ([id number]) [facility] ([facility]) [address] [place] [address] 56415 Bilirubin [Mass/Vol] 0.3 mg/dL Normal 0.0-1.2 [facility] Comment on above: Performed By: #### 2 4323-8 #### MIGUEL GUALLPA ([id number]) [facility] ([facility]) [address] [place] [address] Calcium [Mass/Vol] 9.3 mg/dL Normal 8.6-10.3 [facility] Comment on above: Performed By: #### 2 4323-8 #### MIGUEL GUALLPA ([id number]) [facility] ([facility]) [address] [place] [address] 58120 Chloride [Moles/Vol] 103 mmol/L Normal 98-107 [facility] Comment on above: Performed By: #### 2 4323-8 #### MIGUEL GUALLPA ([id number]) [facility] ([facility]) [address] [place] [address] 15583 CO2 [Moles/Vol] 26 mmol/L Normal 21-32 [facility] Comment on above: Performed By: #### 2 4323-8 #### MIGUEL GUALLPA ([id number]) [facility] ([facility]) [address] [place] [address] Creatinine [Mass/Vol] 0.68 mg/dL Normal 0.50-1.05 [facility] Comment on above: Performed By: #### 2 4323-8 #### MIGUEL GUALLPA ([id number]) [facility] ([facility]) [address] [place] [address] 44990 GFR/1.73 sq M.predicted MDRD (S/P/Bld) [Vol rate/Area] mL/min/{1.73_m2} Normal >60 [facility] Comment on above: Result Comment: Calc ulations of estimated GFR are performed using the 2020 CKD-EPI Study Refit equation without the race variable for the IDMS-Traceable creatinine methods. https://jasn.asnjournals.org/content/early/ASN.14565 52217 Performed By: #### 2 4323-8 #### MIGUEL GUALLPA ([id number]) [facility] ([facility]) [address] [place] [address] 42726 Glucose [Mass/Vol] 99 mg/dL Normal 74-99 [facility] Comment on above: Performed By: #### 2 4323-8 #### MIGUEL GUALLPA ([id number]) [facility] ([facility]) [address] [place] [address] 17561 Potassium [Moles/Vol] 3.9 mmol/L Normal 3.5-5.3 [facility] Comment on above: Performed By: #### 2 4323-8 #### MIGUEL GUALLPA ([id number]) [facility] ([facility]) [address] [place] [address] 68538 Protein [Mass/Vol] 7.0 g/dL Normal 6.4-8.2 [facility] Comment on above: Performed By: #### 2 4323-8 #### MIGUEL GUALLPA ([id number]) [facility] ([facility]) [address] [place] [address] 68625 Sodium [Moles/Vol] 134 mmol/L Low 136-145 [facility] Comment on above: Performed By: #### 2 4323-8 #### MIGUEL GUALLPA ([id number]) [facility] ([facility]) [address] [place] [address] 96650 Urea nitrogen [Mass/Vol] 13 mg/dL Normal 6-23 [facility] Comment on above: Performed By: #### 2 4323-8 #### MIGUEL GUALLPA ([id number]) [facility] ([facility]) [address] [place] [address] 60951 Ferritinon 07-25-2024 Ferritin [Mass/Vol] 45 ng/mL Normal 8-150 [facility] Comment on above: Performed By: #### 2 276-4 #### MIGUEL GUALLPA ([id number]) [facility] ([facility]) [address] [place] [address] 97940 HbA1c (Bld) [Mass fraction]o n 07-25-2024 Average glucose Estimated from glycated hemoglobin (Bld) [Mass/Vol] 100 mg/dL Normal Not Established [facility] Comment on above: Order Comment: Diagn osis of Aunhebrr-GwbtlpChb-Lvxiwzxy: < or = 5.6%Increased risk for developing diabetes: 5.7-6.4%Diagnostic of diabetes: > or = 6.5% Performed By: #### 2 276-4 #### MIGUEL GUALLPA ([id number]) [facility] ([facility]) [address] [place] [address] 37445 Hemoglobin A1c/Hemoglobin.to shaniqua 07-25-2024 HbA1c (Bld) [Mass fraction] 5.1 % Normal See comment [facility] Comment on above: Order Comment: Diagn osis of Xqoqjybh-YeloyzInm-Phcgtcrm: < or = 5.6%Increased risk for developing diabetes: 5.7-6.4%Diagnostic of diabetes: > or = 6.5% Performed By: #### 2 276-4 #### MIGUEL GUALLPA ([id number]) [facility] ([facility]) [address] [place] [address] 77126 Iron and Iron binding capaci ty panelon 07-25-2024 Iron [Mass/Vol] 83 ug/dL Normal 35-150 [facility] Comment on above: Performed By: #### 5 0190-8 #### MIGUEL GUALLPA ([id number]) [facility] ([facility]) [address] [place], [place] [address] Iron binding capacity [Mass/Vol] 425 ug/dL Normal 240-445 [facility] Comment on above: Performed By: #### 5 0190-8 #### MIGUEL GUALLPA ([id number]) [facility] ([facility]) [address] [place] [address] Iron binding capacity.unsaturated [Mass/Vol] 342 ug/dL Normal 110-370 [facility] Comment on above: Performed By: #### 5 0190-8 #### MIGUEL GUALLPA ([id number]) [facility] ([facility]) [address] [place] [address] Iron saturation [Mass fraction] 20 % Low 25-45 [facility] Comment on above: Performed By: #### 5 0190-8 #### MIGUEL GUALLPA ([id number]) [facility] ([facility]) [address] [place] [address] Parathyrin.intacton 07-25-20 24 Parathyrin.intact [Mass/Vol] 33.3 pg/mL Normal 18.5-88.0 [facility] Comment on above: Performed By: #### 2 276-4 #### MIGUEL GUALLPA ([id number]) [facility] ([facility]) [address] [place] [address] TSH WITH REFLEX TO FREE T4 I F ABNORMALon 07-25-2024 TSH Qn 2.06 m[IU]/L Normal 0.44-3.98 [facility] Comment on above: Order Comment: TSH t esting is performed using different testing methodology at [facility] than at other [facility]. Direct result comparisons should only be made within the same method. Performed By: #### 2 276-4 #### MIGUEL GUALLPA ([id number]) [facility] ([facility]) [address] [place] [address] CBC W Auto Differential pane l (Bld)on 10-13-2023 Basophils (Bld) [#/Vol] 0.04 x10*3/uL Normal 0.00-0.10 [facility] Comment on above: Performed By: #### 5 7021-8 #### MIGUEL GUALLPA ([id number]) [facility] ([facility]) [address] [place] [id number] Basophils/100 WBC (Bld) 0.5 % Normal 0.0-2.0 [facility] Comment on above: Performed By: #### 70-8 #### MIGUEL GUALLPA ([id number]) [facility] ([facility]) [address] [place] [id number] Eosinophils (Bld) [#/Vol] 0.29 x10*3/uL Normal 0.00-0.70 [facility] Comment on above: Performed By: #### 7021-8 #### MIGUEL GUALLPA ([id number]) [facility] ([facility]) [address] [place] [address] 43922 Eosinophils/100 WBC (Bld) 3.7 % Normal 0.0-6.0 [facility] Comment on above: Performed By: #### 70-8 #### MIGUEL GUALLPA ([id number]) [facility] ([facility]) [address] [place] [address] 22685 Erythrocyte distribution width (RBC) [Ratio] 12.5 % Normal 11.5-14.5 [facility] Comment on above: Performed By: #### 7021-8 #### MIGUEL GUALLPA ([id number]) [facility] ([facility]) [address] [place] [address] 27510 Hematocrit (Bld) [Volume fraction] 40.7 % Normal 36.0-46.0 [facility] Comment on above: Performed By: #### 7021-8 #### MIGUEL GUALLPA ([id number]) [facility] ([facility]) [address] [place] [address] 04431 Hemoglobin (Bld) [Mass/Vol] 13.4 g/dL Normal 12.0-16.0 [facility] Comment on above: Performed By: #### 7021-8 #### MIGUEL GUALLPA ([id number]) [facility] ([facility]) [facility] [place] [address] Immature granulocytes (Bld) [#/Vol] 0.02 x10*3/uL Normal 0.00-0.70 [facility] Comment on above: Performed By: #### 5 7021-8 #### MIGUEL GUALLPA ([id number]) [facility] ([facility]) [address] [place] [address] 19038 Immature granulocytes/100 WBC (Bld) 0.3 % Normal 0.0-0.9 [facility] Comment on above: Result Comment: Shelley ture Granulocyte Count (IG) includes promyelocytes, myelocytes and metamyelocytes but does not include bands. Percent differential counts (%) should be interpreted in the context of the absolute cell counts (cells/UL). Performed By: #### 5 7021-8 #### MIGUEL GUALLPA ([id number]) [facility] ([facility]) [address] [place] [address] 89068 Lymphocytes (Bld) [#/Vol] 1.36 x10*3/uL Normal 1.20-4.80 [facility] Comment on above: Performed By: #### 5 7021-8 #### MIGUEL GUALLPA ([id number]) [facility] ([facility]) [address] [place] [address] 43255 Lymphocytes/100 WBC (Bld) 17.5 % Normal 13.0-44.0 [facility] Comment on above: Performed By: #### 5 7021-8 #### MIGUEL GUALLPA ([id number]) [facility] ([facility]) [address] [place] [address] 58739 MCH (RBC) [Entitic mass] 30.0 pg Normal 26.0-34.0 [facility] Comment on above: Performed By: #### 5 7021-8 #### MIGUEL GUALLPA ([id number]) [facility] ([facility]) [address] [place] [address] 08087 MCHC (RBC) [Mass/Vol] 32.9 g/dL Normal 32.0-36.0 [facility] Comment on above: Performed By: #### 5 7021-8 #### MIGUEL GUALLPA ([id number]) [facility] ([facility]) [address] [place] [address] 93751 MCV (RBC) [Entitic vol] 91 fL Normal 80-100 [facility] Comment on above: Performed By: #### 5 7021-8 #### MIGUEL GUALLPA ([id number]) [facility] ([facility]) [address] [place] [address] 40439 Monocytes (Bld) [#/Vol] 0.80 x10*3/uL Normal 0.10-1.00 [facility] Comment on above: Performed By: #### 5 7021-8 #### MIGUEL GUALLPA ([id number]) [facility] ([facility]) [address] [place] [address] 99561 Monocytes/100 WBC (Bld) 10.3 % Normal 2.0-10.0 [facility] Comment on above: Performed By: #### 5 7021-8 #### MIGUEL GUALLPA ([id number]) [facility] ([facility]) [address] [place] [address] 18448 Neutrophils (Bld) [#/Vol] 5.28 x10*3/uL Normal 1.20-7.70 [facility] Comment on above: Result Comment: Perc ent differential counts (%) should be interpreted in the context of the absolute cell counts (cells/uL). Performed By: #### 5 7021-8 #### MIGUEL GUALLPA ([id number]) [facility] ([facility]) [address] [place] [address] 77429 Neutrophils/100 WBC (Bld) 67.7 % Normal 40.0-80.0 [facility] Comment on above: Performed By: #### 5 7021-8 #### MIGUEL GUALLPA ([id number]) [facility] ([facility]) [address] [place] [address] 46579 Nucleated RBC/100 WBC (Bld) [Ratio] 0.0 /100 WBCs Normal 0.0-0.0 [facility] Comment on above: Performed By: #### 5 7021-8 #### MIGUEL GUALLPA ([id number]) [facility] ([facility]) [address] [place] [address] 52483 Platelets (Bld) [#/Vol] 266 x10*3/uL Normal 150-450 [facility] Comment on above: Performed By: #### 5 7021-8 #### MIGUEL GUALLPA ([id number]) [facility] ([facility]) [address] [place] [address] 49069 RBC (Bld) [#/Vol] 4.46 x10*6/uL Normal 4.00-5.20 [facility] Comment on above: Performed By: #### 5 7021-8 #### MIGUEL GUALLPA ([id number]) [facility] ([facility]) [address] [place] [address] 43569 WBC (Bld) [#/Vol] 7.8 x10*3/uL Normal 4.4-11.3 [facility] Comment on above: Performed By: #### 5 7021-8 #### MIGUEL GUALLPA ([id number]) [facility] ([facility]) [address] [place] [address] 35705 Calcidiolon 10-13-2023 25-hydroxyvitamin D3 [Mass/Vol] 28 ng/mL Low 30-100 [facility] Comment on above: Order Comment: Defic iency: < 20 ng/ml Insufficiency: 20-29 ng/ml Sufficiency: 30-100 ng/ml This assay accurately quantifies the sum of Vitamin D3, 25-Hydroxy and Vitamin D2,25-Hydroxy. Performed By: #### 1 989-3 #### MIGUEL GUALLPA ([id number]) [facility] ([facility]) [address] [place] [address] 98768 Ferritinon 10-13-2023 Ferritin [Mass/Vol] 59 ng/mL Normal 8-150 [facility] Comment on above: Performed By: #### 2 276-4 #### MIGUEL GUALLPA ([id number]) [facility] ([facility]) [address] [place] [address] 55890 Iron and Iron binding capaci ty panelon 10-13-2023 Iron [Mass/Vol] 69 ug/dL Normal 35-150 [facility] Comment on above: Performed By: #### 5 0190-8 #### MIGUEL GUALLPA ([id number]) [facility] ([facility]) [address] [place] [address] 11828 Iron binding capacity [Mass/Vol] 399 ug/dL Normal 240-445 [facility] Comment on above: Performed By: #### 5 0190-8 #### MIGUEL GUALLPA ([id number]) [facility] ([facility]) [address] [place] [address] 76448 Iron binding capacity.unsaturated [Mass/Vol] 330 ug/dL Normal 110-370 [facility] Comment on above: Performed By: #### 5 0190-8 #### MIGUEL GUALLPA ([id number]) [facility] ([facility]) [address] [place] [address] 23536 Iron saturation [Mass fraction] 17 % Low 25-45 [facility] Comment on above: Performed By: #### 5 0190-8 #### MIGUEL GUALLPA ([id number]) [facility] ([facility]) [address] [place] [address] 60461 Parathyrin.intacton 10-13-19 24 Parathyrin.intact [Mass/Vol] 48.1 pg/mL Normal 18.5-88.0 [facility] Comment on above: Performed By: #### 2 731-8 #### JONNATHAN Schwartz ([id number]) [facility] ([facility]) [address] [place] [address] CBC AND DIFFERENTIALon 11-30 Basophils (Bld) [#/Vol] 0.00 10*3/uL Normal 0.00 - 0.10 [facility] Comment on above: Performed By: #### C BCDF #### [address] [address] Basophils/100 WBC (Bld) 0.7 % Normal 0.0 - 2.0 [facility] Comment on above: Performed By: #### C BCDF #### [address] [address] Eosinophils (Bld) [#/Vol] 0.10 10*3/uL Normal 0.00 - 0.70 [facility] Comment on above: Performed By: #### C BCDF #### [address] [address] Eosinophils/100 WBC (Bld) 1.4 % Normal 0.0 - 6.0 [facility] Comment on above: Performed By: #### C BCDF #### [address] [address] Erythrocyte distribution width (RBC) [Ratio] 12.8 % Normal 11.5 - 14.5 [facility] Comment on above: Performed By: #### C BCDF #### [address] [address] Hematocrit (Bld) [Volume fraction] 38.5 % Normal 36.0 - 46.0 [facility] Comment on above: Performed By: #### C BCDF #### [address] [address] Hemoglobin (Bld) [Mass/Vol] 13.5 g/dL Normal 12.0 - 16.0 [facility] Comment on above: Performed By: #### C BCDF #### [address] [address] Lymphocytes (Bld) [#/Vol] 2.30 10*3/uL Normal 1.20 - 4.80 [facility] Comment on above: Performed By: #### C BCDF #### [address] [address] Lymphocytes/100 WBC (Bld) 40.0 % Normal 13.0 - 44.0 [facility] Comment on above: Performed By: #### C BCDF #### [address] [address] MCHC (RBC) [Mass/Vol] 35.0 g/dL Normal 32.0 - 36.0 [facility] Comment on above: Performed By: #### C BCDF #### [address] [address] MCV (RBC) [Entitic vol] 88 fL Normal 80 - 100 [facility] Comment on above: Performed By: #### C BCDF #### [address] [address] Monocytes (Bld) [#/Vol] 0.30 10*3/uL Normal 0.10 - 1.00 [facility] Comment on above: Performed By: #### C BCDF #### [address] [address] Monocytes/100 WBC (Bld) 5.8 % Normal 2.0 - 10.0 [facility] Comment on above: Performed By: #### C BCDF #### [address] [address] Neutrophils (Bld) [#/Vol] 3.10 10*3/uL Normal 1.20 - 7.70 [facility] Comment on above: Result Comment: Perc ent differential counts (%) should be interpreted in the context of the absolute cell counts (cells/L). Performed By: #### C BCDF #### [address] [address] Neutrophils/100 WBC (Bld) 52.1 % Normal 40.0 - 80.0 [facility] Comment on above: Performed By: #### C BCDF #### [address] [address] NUCLEATED RBC 0.1 /100 WBC Normal [facility] Comment on above: Performed By: #### C BCDF #### [address] [address] Platelets (Bld) [#/Vol] 338 10*3/uL Normal 150 - 450 [facility] Comment on above: Performed By: #### C BCDF #### [address] [address] RBC 4.38 x10E12/L Normal 4.00 - 5.20 [facility] Comment on above: Performed By: #### C BCDF #### [address] [address] WBC (Bld) [#/Vol] 5.9 10*3/uL Normal 4.4 - 11.3 [facility] Comment on above: Performed By: #### C BCDF #### [address] [address] COMPREHENSIVE PANELon 2021 Albumin [Mass/Vol] 5.0 g/dL Normal 3.4 - 5.0 [facility] Comment on above: Performed By: #### C MP #### [address] [address] ALP [Catalytic activity/Vol] 53 U/L Normal 33 - 110 [facility] Comment on above: Performed By: #### C MP #### [address] [address] ALT [Catalytic activity/Vol] 11 U/L Normal 7 - 45 [facility] Comment on above: Result Comment: Erlinda ents treated with Sulfasalazine may generate falsely decreased results for ALT. Performed By: #### C MP #### [address] [address] Anion gap [Moles/Vol] 13 mmol/L Normal 10 - 20 [facility] Comment on above: Performed By: #### C MP #### [address] [address] AST [Catalytic activity/Vol] 15 U/L Normal 9 - 39 [facility] Comment on above: Performed By: #### C MP #### [address] [address] Bilirubin [Mass/Vol] 0.7 mg/dL Normal 0.0 - 1.2 [facility] Comment on above: Performed By: #### C MP #### [address] [address] Calcium [Mass/Vol] 9.4 mg/dL Normal 8.6 - 10.3 [facility] Comment on above: Performed By: #### C MP #### [address] [address] Chloride [Moles/Vol] 103 mmol/L Normal 98 - 107 [facility] Comment on above: Performed By: #### C MP #### [address] [address] Creatinine [Mass/Vol] 0.59 mg/dL Normal 0.50 - 1.05 [facility] Comment on above: Performed By: #### C MP #### [address] [address] eGFR FEMALE >90 Normal >90 [facility] Comment on above: Result Comment: CALC ULATIONS OF ESTIMATED GFR ARE PERFORMED USING THE 2020 CKD-EPI STUDY REFIT EQUATION WITHOUT THE RACE VARIABLE FOR THE IDMS-TRACEABLE CREATININE METHODS. https://jasn.asnjournals.org/content//ASN.12125 39084 Performed By: #### C MP #### [address] [address] Glucose [Mass/Vol] 101 mg/dL High 74 - 99 [facility] Comment on above: Performed By: #### C MP #### [address] [address] HCO3 (Bld) [Moles/Vol] 24 mmol/L Normal 21 - 32 [facility] Comment on above: Performed By: #### C MP #### [address] [address] Potassium [Moles/Vol] 3.3 mmol/L Low 3.5 - 5.3 [facility] Comment on above: Performed By: #### C MP #### [address] [address] Protein [Mass/Vol] 8.2 g/dL Normal 6.4 - 8.2 [facility] Comment on above: Performed By: #### C MP #### [address] [address] Sodium [Moles/Vol] 137 mmol/L Normal 136 - 145 [facility] Comment on above: Performed By: #### C MP #### [address] [address] Urea nitrogen [Mass/Vol] 10 mg/dL Normal 6 - 23 [facility] Comment on above: Performed By: #### C #### [place] [address] [place] [id number] [place] ABDOMEN AND PELVIS W IV C [facility] 11-30-2021 CT ABDOMEN AND PELVIS W IV CONTRAST Patient Name: MADDIE NELSON STUDY: CT ABDOMEN AND PELVIS W IV CONTRAST; 11/30/2021 4:17 pm INDICATION: R lower abd pain . COMPARISON: None. ACCESSION NUMBER(S): [id number] ORDERING CLINICIAN: VERONA AVILES TECHNIQUE: CT of [...] Electronically signed by: STACI MARIE MD Normal [facility] HCG,URINEon 11-30-2021 Beta HCG ( test) Ql (U) Negative Normal Negative [facility] Comment on above: Performed By: #### H CGU #### [address] [address] LIPASEon 11-30-2021 Lipase [Catalytic activity/Vol] 14 U/L Normal 9 - 82 [facility] Comment on above: Result Comment: Kenisha puncture immediately after or during the administration of Metamizole may lead to falsely low results. Testing should be performed immediately prior to Metamizole dosing. Y-[id number]-g-benzoquinone imine (metabolite of Acetaminophen) will generate erroneously low results in samples for patients that have taken toxic doses of acetaminophen. Performed By: #### L IPAS #### [address] [address] Provider Note - ED v3on 11-09 Provider [...] tenderness. Mild Rovsing. Negative heel strike and holistic specialist., non-distended, no masses : MSK: No gross deformities appreciated Back: Non tender, no pain with ROM Skin: Warm, dry. No rashes Neuro: Alert and oriented x4, GCS 15 , appraiser auditor II-XII grossly intact. Sensation and motor function of extremities grossly intact. Psych: Appropriate mood and affect. I have reviewed and confirmed nurses/medics notes for patient past, social and family history. Portions of this note were dictated by speech recognition. An attempt at proof reading was made to minimize errors. 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 HISTORY OF PRESENTING [...] Reference Range: STRAW,YELLOW Appearance, Urine HAZY Specific Drewsey, Urine 1.005 pH, Urine 7.0 Protein, Urine [...] [Nov 30 2021 4:35PM] MDM MDM/ED COURSE: 1649-final results reviewed with patient who rest in bed in no acute distress. Work-up is unremarkable as noted below. Patient comfortable discharge home at this time. Your lab work, urinalysis, and CAT scan today did not show any concerning (more content not included)... Normal [facility] Risk Screen - Adult Emergenc [...] instruction; written material Cultural Considerationsnone Developmental Considerationsnone Cheondoism Considerationsnone Other Learnersfriend Learning Assessment (Other Learner): Learning Assessment (Other Learner): Other learner availableyes... Learnerfriend Factors Influencing Readiness to LearnN/A Factors that Impact Ability to Learnnone Devices/Methods Used to Communicatenone Learning Preferencesverbal instruction, written material Cultural Considerationsnone Developmental Considerationsnone Cheondoism Considerationsnone Pressure Injury/TB/Substance: Pressure Injury: Do you have a coughno Smoking Statusnever smoker Alcohol Useoccasionally Drug Usedenies Admission Risk Screen: Significant IndicatorsComplete CAGE: CAGE: Is this an injured patient at a Trauma Center ([facility]/[place]/[facility] a/[place]): no Electronic Signatures: Joya Hall (RN) (Signed 30-Nov-2021 14:57) Authored: Preferred Language, Advanced Directives, Family Violence Adult, Learning Assessment (Patient), Learning Assessment (Other Learner), Pressure Injury/TB/Substance, Pressure Injury, CAGE Last Updated: 30-Nov-2021 14:57 by Joya Hall (RN) [facility] Triage - EDon 11-30-2021 Triage [...] Accompanied By: self Language: Spoken Language Preferred: Eritrean Reading Language Preferred: Eritrean Present on Arrival: Device Present on Arrival [...] BMI (kg/m2): 28.048 Calculated BSA (m2) 1.70 Monitor Coma Scale: Best Eye Response: (E4) spontaneous Best Motor Response: (M6) obeys commands Best Verbal Response: (V5) oriented Monitor Score: 15 Allergies: no Last menstrual period: [...] 30-Nov-2021 14:55 by Joya Hall (KIAN) Normal [facility] UA MICROSCOPICon 11-30-2021 BACTERIA 1+ /HPF Abnormal [facility] Comment on above: Performed By: #### U AMIC #### [address] [address] Mucus Ql (Urine sed) 1+ /LPF Normal [facility] Comment on above: Performed By: #### U AMIC #### [address] [address] RBC (U) [#/Vol] /uL Normal 0-5 [facility] Comment on above: Performed By: #### U AMIC #### [place] [address] SQUAMOUS EPITH. CELLS 10 /HPF Normal [facility] Comment on above: Performed By: #### U AMIC #### [address] [address] WBC 1 /HPF Normal 0-5 [facility] Comment on above: Performed By: #### U AMIC #### [place] [id number] URINALYSISon 11-30-2021 Appearance (U) HAZY Normal CLEAR [facility] Comment on above: Performed By: #### U A #### [address] [address] Bilirubin Ql (U) Negative Normal NEGATIVE [facility] Comment on above: Performed By: #### U A #### [address] [address] Color (U) Straw Normal STRAW,YELLOW [facility] Comment on above: Performed By: #### U A #### [address] [address] Glucose Ql (U) Negative Normal NEGATIVE [facility] Comment on above: Performed By: #### U A #### [address] [address] Hemoglobin Ql (U) LARGE(3+) Abnormal NEGATIVE [facility] Comment on above: Performed By: #### U A #### [place] [id number] Ketones Ql (U) Negative Normal NEGATIVE [facility] Comment on above: Performed By: #### U A #### [address] [address] Leukocyte esterase Test strip Ql (U) Negative Normal NEGATIVE [facility] Comment on above: Performed By: #### U A #### [address] [address] Nitrite Ql (U) Negative Normal NEGATIVE [facility] Comment on above: Performed By: #### U A #### [address] [address] pH (U) 7.0 [pH] Normal 5.0 - 8.0 [facility] Comment on above: Performed By: #### U A #### [address] [address] Protein Ql (U) Negative Normal NEGATIVE [facility] Comment on above: Performed By: #### U A #### [address] [address] Specific gravity (U) [Rel density] 1.005 Normal 1.005 - 1.035 [facility] Comment on above: Performed By: #### U A #### [address] [address] Urobilinogen (U) [Mass/Vol] mg/dL Normal 0.0 - 1.9 [facility] Comment on above: Performed By: #### U A #### [address] [address] Vital Signs Date Time Vital Sign Value Performing Clinician Facility 04-13-2025 14:20-0400 Body height 157.48 cm Minerva LUBIN Work Phone: [facility] 04-13-2025 14:11040 Body mass index (BMI) [Ratio] 33.3 kg/m2 Minerva LUBIN Work Phone: [facility] 04-13-2025 14:040 Body weight 82.58 kg Minerva LUBIN Work Phone: [facility] 04-13-2025 14:11040 Diastolic blood pressure 82 mm[Hg] Minerva Flower COURT ASSISTANT-C Work Phone: [facility] 04-13-2025 14:11-0400 Systolic blood pressure 120 mm[Hg] Minerva Flower COURT ASSISTANT-C Work Phone: [facility] 04-01-2025 07:45-0400 Body temperature 97 [degF] Minerva Flower COURT ASSISTANT-C Work Phone: [facility] 04-01-2025 07:45-0400 Diastolic blood pressure 79 mm[Hg] Minerva Flower COURT ASSISTANT-C Work Phone: [facility] 04-01-2025 07:45-0400 Heart rate 75 /min Minerva [address] ASSISTANT-C Work Phone: [facility] 04-01-2025 07:45-0400 Respiratory rate 16 /min Minerva [address] ASSISTANT-C Work Phone: [facility] 04-01-2025 07:45-0400 SaO2% (BldA) [Mass fraction] 98 % Minerva Flower COURT ASSISTANT-C Work Phone: [facility] 04-01-2025 07:45-0400 Systolic blood pressure 115 mm[Hg] Minerva Garcialey COURT ASSISTANT-C Work Phone: [facility] 03-30-2025 05:24-0400 Body height 157.[address] ASSISTANT-C Work Phone: [facility] 03-30-2025 05:24-0400 Body mass index (BMI) [Ratio] 37.5 kg/m2 Minerva Flower [address] ASSISTANT-C Work Phone: [facility] 03-30-2025 05:24-0400 Body weight 92.[address] ASSISTANT-C Work Phone: [facility] 03-25-2025 15:44-0400 Body height 157.[address] ASSISTANT-C Work Phone: [facility] 03-25-2025 15:44-0400 Body mass index (BMI) [Ratio] 37.1 kg/m2 Minerva Flower [address] ASSISTANT-C Work Phone: [facility] 03-25-2025 15:44-0400 Body weight 92.[address] ASSISTANT-C Work Phone: [facility] 03-25-2025 15:44-0400 Diastolic blood pressure 79 mm[Hg] Minerva Flower COURT ASSISTANT-C Work Phone: [facility] 03-25-2025 15:44-0400 Systolic blood pressure 114 mm[Hg] Mienrva Flower COURT ASSISTANT-C Work Phone: [facility] 03-19-2025 14:19-0400 Body height 157.[address] ASSISTANT-C Work Phone: [facility] 03-19-2025 14:19-0400 Body mass index (BMI) [Ratio] 36.7 kg/m2 Minerva Flower [address] ASSISTANT-C Work Phone: [facility] 03-19-2025 14:19-0400 Body weight 91.[address] ASSISTANT-C Work Phone: [facility] 03-19-2025 14:19-0400 Diastolic blood pressure 79 mm[Hg] Minerva Flower COURT ASSISTANT-C Work Phone: [facility] 03-19-2025 14:19-0400 Systolic blood pressure 117 mm[Hg] Minerva Flower COURT ASSISTANT-C Work Phone: [facility] 03-11-2025 15:51-0400 Body height 157.[address] ASSISTANT-C Work Phone: [facility] 03-11-2025 15:46-0400 Body mass index (BMI) [Ratio] 36.2 kg/m2 Minerva Flower [address] ASSISTANT-C Work Phone: [facility] 03-11-2025 15:46-0400 Body weight 89.[address] ASSISTANT-C Work Phone: [facility] 03-11-2025 15:46-0400 Diastolic blood pressure 85 mm[Hg] Minerva Flower COURT ASSISTANT-C Work Phone: [facility] 03-11-2025 15:46-0400 Systolic blood pressure 123 mm[Hg] Minerva Flower COURT ASSISTANT-C Work Phone: [facility] 03-06-2025 15:46-0400 Body height 157.[address] ASSISTANT-C Work Phone: [facility] 03-06-2025 15:46-0400 Body mass index (BMI) [Ratio] 36.6 kg/m2 Minerva [address]lower [address] ASSISTANT-C Work Phone: [facility] 03-06-2025 15:46-0400 Body weight 90.[address] ASSISTANT-C Work Phone: [facility] 03-06-2025 15:46-0400 Diastolic blood pressure 81 mm[Hg] Minerva Flower COURT ASSISTANT-C Work Phone: [facility] 03-06-2025 15:46-0400 Systolic blood pressure 122 mm[Hg] Minerva Flower COURT ASSISTANT-C Work Phone: [facility] 02-26-2025 16:37-0400 Body temperature 97.8 [degF] Minerva Flower COURT ASSISTANT-C Work Phone: [facility] 02-26-2025 16:37-0400 Diastolic blood pressure 74 mm[Hg] Minerva Flower COURT ASSISTANT-C Work Phone: [facility] 02-26-2025 16:37-0400 Heart rate 95 /min Minerva [address] ASSISTANT-C Work Phone: [facility] 02-26-2025 16:37-0400 Respiratory rate 16 /min Minerv[address] ASSISTANT-C Work Phone: [facility] 02-26-2025 16:37-0400 Systolic blood pressure 112 mm[Hg] Minerva Flowre COURT ASSISTANT-C Work Phone: [facility] 02-26-2025 16:25-0400 Body height 157.[address] ASSISTANT-C Work Phone: [facility] 02-26-2025 16:25-0400 Body mass index (BMI) [Ratio] 35.5 kg/m2 Minerva Flower COURT ASSISTANT-C Work Phone: [facility] 02-26-2025 16:25-0400 Body weight 88.[address] ASSISTANT-C Work Phone: [facility] 02-20-2025 09:11-0400 Body height 157.[address] ASSISTANT-C Work Phone: [facility] 02-20-2025 09:11-0400 Body mass index (BMI) [Ratio] 35.7 kg/m2 Minerva Flower COURT ASSISTANT-C Work Phone: [facility] 02-20-2025 09:11-0400 Body weight 88.[address] ASSISTANT-C Work Phone: [facility] 02-19-2025 07:41-0400 Diastolic blood pressure 72 mm[Hg] Minerva Flower COURT ASSISTANT-C Work Phone: [facility] 02-19-2025 07:41-0400 Heart rate 87 /min Minerva [address] ASSISTANT-C Work Phone: [facility] 02-19-2025 07:41-0400 Systolic blood pressure 121 mm[Hg] Minerva Flower COURT ASSISTANT-C Work Phone: [facility] 02-19-2025 07:36-0400 Body temperature 97.9 [degF] Minerva Flower COURT ASSISTANT-C Work Phone: [facility] 02-19-2025 07:36-0400 Respiratory rate 16 /min Minerv[address] ASSISTANT-C Work Phone: [facility] 02-19-2025 07:27-0400 Body height 157.[address] ASSISTANT-C Work Phone: [facility] 02-19-2025 07:27-0400 Body mass index (BMI) [Ratio] 35.6 kg/m2 Minerva Flower COURT ASSISTANT-C Work Phone: 3(479)865-343759 [place] [address] 02-19-2025 07:27-0400 Body weight 88.[address] ASSISTANT-C Work Phone: [facility] 02-18-2025 14:09-0400 Body height 157.[address] ASSISTANT-C Work Phone: [facility] 02-18-2025 14:08-0400 Body mass index (BMI) [Ratio] 35.8 kg/m2 Minerva Flower COURT ASSISTANT-C Work Phone: [facility] 02-18-2025 14:08-0400 Body weight 88.[address] ASSISTANT-C Work Phone: 5(467)397-059370 [place] [address] 02-18-2025 14:08-0400 Diastolic blood pressure 76 mm[Hg] Minerva Flower COURT ASSISTANT-C Work Phone: 5(720)208-962270 [place] [address] 02-18-2025 14:08-0400 Systolic blood pressure 113 mm[Hg] Minerva Flower COURT ASSISTANT-C Work Phone: [facility] 02-03-2025 13:42-0400 Body height 157.[address] ASSISTANT-C Work Phone: 3(989)282-922970 [place] [address] 02-03-2025 13:42-0400 Body mass index (BMI) [Ratio] 35.4 kg/m2 Minerva Flower COURT ASSISTANT-C Work Phone: [facility] 02-03-2025 13:42-0400 Body weight 87.[address] ASSISTANT-C Work Phone: [facility] 02-03-2025 13:42-0400 Diastolic blood pressure 80 mm[Hg] Minerva Flower COURT ASSISTANT-C Work Phone: 8(665)777-581770 [place] [address] 02-03-2025 13:42-0400 Systolic blood pressure 108 mm[Hg] Minerva Flower COURT ASSISTANT-C Work Phone: 2(528)418-076670 [place] [address] 01-20-2025 14:36-0400 Body height 157.[address] ASSISTANT-C Work Phone: 5(429)678-700270 [place] [address] 01-20-2025 14:36-0400 Body mass index (BMI) [Ratio] 34.7 kg/m2 Minerva Flower COURT ASSISTANT-C Work Phone: [facility] 01-20-2025 14:36-0400 Body weight 86.[address] ASSISTANT-C Work Phone: [facility] 01-20-2025 14:36-0400 Diastolic blood pressure 75 mm[Hg] Minerva Flower COURT ASSISTANT-C Work Phone: [facility] 01-20-2025 14:36-0400 Systolic blood pressure 115 mm[Hg] Minerva Flower COURT ASSISTANT-C Work Phone: [facility] 01-06-2025 12:59-0400 Body height 157.[address] ASSISTANT-C Work Phone: [facility] 01-06-2025 12:59-0400 Body mass index (BMI) [Ratio] 34.4 kg/m2 Minerva Flower COURT ASSISTANT-C Work Phone: [facility] 01-06-2025 12:59-0400 Body weight 85.[address] ASSISTANT-C Work Phone: [facility] 01-06-2025 12:59-0400 Diastolic blood pressure 86 mm[Hg] Minerva Flower COURT ASSISTANT-C Work Phone: [facility] 01-06-2025 12:59-0400 Systolic blood pressure 131 mm[Hg] Minerva Flower COURT ASSISTANT-C Work Phone: [facility] 12-18-2024 14:03-0400 Body mass index (BMI) [Ratio] 33.1 kg/m2 Minerva Flower COURT ASSISTANT-C Work Phone: [facility] 12-18-2024 14:03-0400 Body weight 82.[address] ASSISTANT-C Work Phone: [facility] 12-18-2024 14:03-0400 Diastolic blood pressure 77 mm[Hg] Minerva Flower COURT ASSISTANT-C Work Phone: [facility] 12-18-2024 14:03-0400 Systolic blood pressure 112 mm[Hg] Minerva Flower COURT ASSISTANT-C Work Phone: 5(331)814-964870 [place] [address] 11-18-2024 15:40-0400 Body height 157.[address] ASSISTANT-C Work Phone: 7(493)791-833770 [place] [address] 11-18-2024 15:40-0400 Body mass index (BMI) [Ratio] 32.3 kg/m2 Minerva Flower COURT ASSISTANT-C Work Phone: 4(824)866-799670 [place] [address] 11-18-2024 15:40-0400 Body weight 80.[address] ASSISTANT-C Work Phone: 3(126)088-064370 [place] [address] 11-18-2024 15:40-0400 Diastolic blood pressure 72 mm[Hg] Minerva Flower COURT ASSISTANT-C Work Phone: 6(892)285-511870 [place] [address] 11-18-2024 15:40-0400 Systolic blood pressure 114 mm[Hg] Minerva Flower COURT ASSISTANT-C Work Phone: 1(369)784-012370 [place] [address] 10-22-2024 14:18-0500 Body mass index (BMI) [Ratio] 31.5 kg/m2 Minerva Flower COURT ASSISTANT-C Work Phone: 5(557)993-000470 [place] [address] 10-22-2024 14:18-0500 Body weight 78.[address] ASSISTANT-C Work Phone: 1(888)528-663070 [place] [address] 10-22-2024 14:18-0500 Diastolic blood pressure 74 mm[Hg] Minerva Flower COURT ASSISTANT-C Work Phone: 6(785)857-800670 [place] [address] 10-22-2024 14:18-0500 Systolic blood pressure 118 mm[Hg] Minerva Flower COURT ASSISTANT-C Work Phone: 6(466)598-046570 [place] [address] 09-23-2024 13:32-0500 Body mass index (BMI) [Ratio] 30.5 kg/m2 Minerva Flower COURT ASSISTANT-C Work Phone: 5(322)799-204370 [place] [address] 09-23-2024 13:32-0500 Body weight 75.[address] ASSISTANT-C Work Phone: 4(653)[phone] [place] [address] 09-23-2024 13:32-0500 Diastolic blood pressure 81 mm[Hg] Minerva Flower COURT ASSISTANT-C Work Phone: [facility] 09-23-2024 13:32-0500 Systolic blood pressure 119 mm[Hg] Minerva Flower COURT ASSISTANT-C Work Phone: [facility] 08-22-2024 14:24-0500 Body mass index (BMI) [Ratio] 21.9 kg/m2 Minerva Flower COURT ASSISTANT-C Work Phone: [facility] 08-22-2024 14:24-0500 Body weight 54.[address] ASSISTANT-C Work Phone: [facility] 08-22-2024 14:24-0500 Diastolic blood pressure 86 mm[Hg] Minerva Flower COURT ASSISTANT-C Work Phone: [facility] 08-22-2024 14:24-0500 Systolic blood pressure 120 mm[Hg] Mienrva Flower COURT ASSISTANT-C Work Phone: [facility] 08-13-2024 14:05-0500 Body mass index (BMI) [Ratio] 30.4 kg/m2 Minerva Flower COURT ASSISTANT-C Work Phone: [facility] 08-13-2024 14:05-0500 Body weight 75.[address] ASSISTANT-C Work Phone: [facility] 08-13-2024 14:05-0500 Diastolic blood pressure 81 mm[Hg] Minerva Flower COURT ASSISTANT-C Work Phone: [facility] 08-13-2024 14:05-0500 Systolic blood pressure 122 mm[Hg] Minerva Flower COURT ASSISTANT-C Work Phone: [facility] 08-11-2024 11:46-0500 Body mass index (BMI) [Ratio] 30.4 kg/m2 Minerva Flower COURT ASSISTANT-C Work Phone: [facility] 08-11-2024 11:46-0500 Body weight 75.[address] ASSISTANT-C Work Phone: [facility] 08-11-2024 11:46-0500 Diastolic blood pressure 84 mm[Hg] Minerva Flower COURT ASSISTANT-C Work Phone: [facility] 08-11-2024 11:46-0500 Systolic blood pressure 128 mm[Hg] Minerva Flower COURT ASSISTANT-C Work Phone: [facility] 07-29-2024 13:36-0500 Body height 157.5 cm Minerva Flower CUT PRESSMAN-ELDERLY CAREGIVER Work Phone: [facility] 07-29-2024 13:36-0500 Body mass index (BMI) [Ratio] 30.84 kg/m2 Minerva Flower CUT PRESSMAN-ELDERLY CAREGIVER Work Phone: [facility] 07-29-2024 13:36-0500 Body weight 76.48 kg Minerva Flower CUT PRESSMAN-ELDERLY CAREGIVER Work Phone: [facility] 07-25-2024 16:17-0500 Body height 157.5 cm Minerva Flower CUT PRESSMAN-ELDERLY CAREGIVER Work Phone: [facility] 07-25-2024 16:17-0500 Body mass index (BMI) [Ratio] 30.8 kg/m2 Minerva Flower CUT PRESSMAN-ELDERLY CAREGIVER Work Phone: [facility] 07-25-2024 16:17-0500 Body weight 76.39 kg Minerva Flower CUT PRESSMAN-ELDERLY CAREGIVER Work Phone: [facility] 07-25-2024 16:17-0500 Diastolic blood pressure 85 mm[Hg] Minerva Flower CUT PRESSMAN-ELDERLY CAREGIVER Work Phone: [facility] 07-25-2024 16:17-0500 Heart rate 78 /min Minerva Flower CUT PRESSMAN-ELDERLY CAREGIVER Work Phone: [facility] 07-25-2024 16:17-0500 Systolic blood pressure 122 mm[Hg] Minerva Flower CUT PRESSMAN-ELDERLY CAREGIVER Work Phone: [facility] 11-30-2021 18:42-0400 Diastolic blood pressure 83 mm[Hg] Text Entry [facility] 11-30-2021 18:42-0400 Heart rate 98 /min Text Entry [facility] 11-30-2021 18:42-0400 Respiratory rate 18 /min Text Entry [facility] 11-30-2021 18:42-0400 SaO2% (BldA) [Mass fraction] 100 % Text Entry [facility] 11-30-2021 18:42-0400 Systolic blood pressure 123 mm[Hg] Text Entry [facility] 11-30-2021 16:50-0400 Body height 154.9 cm Text Entry [facility] 11-30-2021 16:50-0400 Body temperature 97.52 [degF] Text Entry [facility] 11-30-2021 16:50-0400 Body weight 67.3 kg Text Entry [facility] Encounters Encounter Date Encounter Type Care Provider Facility Start: 04-13-2025 End: 04-13-2025 ambulatory Minerva Flower Facility:[facility] Start: 04-13-2025 End: 04-13-2025 Patient encounter procedure Chioma LUBIN -[facility] Work Phone: Start: 04-01-2025 Non-patient / Non-visit Dr. Sangetea Peters MD -[facility] Start: 03-31-2025 Non-patient / Non-visit Dr. Sangeeta Peters MD -[facility] Start: 03-30-2025 Non-patient / Non-visit Dr. Sangeeta Peters MD -[facility] Start: 03-30-2025 ambulatory Radha Matias lity:[facility] Start: 03-30-2025 End: 04-01-2025 Evaluation and management of inpatient Dr. Radha Peters MD -[place] [place] Work Phone: Start: 03-25-2025 End: 03-25-[address] Radha Peters MD -[facility] Work Phone: Start: 03-25-2025 End: 03-25-[address] ASSISTANT-C Work Phone: [facility] Start: 03-19-2025 End: 03-19-[address] ASSISTANT-C Work Phone: -Laboratory Specimen Start: 03-19-2025 End: 03-19-[address] María Elena Solomon DO -Laboratory Specimen Work Phone: Start: 03-19-2025 End: 03-19-[address] María Elena Solomon DO -[facility] Work Phone: Start: 03-19-2025 End: 03-19-[address] ASSISTANT-C Work Phone: [facility] Start: 03-19-2025 End: 03-19-2025 ambulatory María Elena Solomon Facility:[facility] Start: 03-11-2025 End: 03-11-[address] Radha Peters MD -[facility] Work Phone: Start: 03-11-2025 End: 03-11-[address] ASSISTANT-C Work Phone: [facility] Start: 03-11-2025 End: 03-11-2025 ambulatory Radha Peters Facility:[facility] Start: 03-06-2025 End: 03-06-2025 Patient encounter procedure Amber Dyer CNM [facility] Work Phone: Start: 03-06-2025 End: 03-06-[address] ASSISTANT-C Work Phone: [facility] Start: 02-26-2025 ambulatory María Elena Solomon Fa cility:[facility] Start: 02-26-2025 Non-patient / Non-visit Dr. Kendall Solomon DO [facility] Start: 02-26-2025 End: 02-26-[address] ASSISTANT-C Work Phone: [facility] Work Phone: Start: 02-26-2025 End: 02-26-[address] María Elena Solomon DO -[place] [place] [facility] Work Phone: Start: 02-21-2025 ambulatory Amber Dyer Facilit y:[facility] Start: 02-21-2025 Non-patient / Non-visit Amber acuna [facility] Start: 02-20-2025 End: 02-20-2025 Patient encounter procedure Amber Dyer [facility] Work Phone: Start: 02-20-2025 End: 02-20-[address] ASSISTANT-C Work Phone: [facility] Work Phone: Start: 02-19-2025 ambulatory María Elena Cruzty:[facility] Start: 02-19-2025 Non-patient / Non-visit Elle Galvan [facility] Start: 02-19-2025 End: 02-19-[address] ASSISTANT-C Work Phone: [facility] Work Phone: Start: 02-19-2025 End: 02-19-[address] María Elena Solomon DO -[place] [place] [facility] Work Phone: Start: 02-18-2025 End: 02-18-[address] ASSISTANT-C Work Phone: [facility] Work Phone: Start: 02-18-2025 End: 02-18-[address] María Elena Solomon DO -Laboratory Specimen Work Phone: Start: 02-18-2025 End: 02-18-[address] María Elena Solomon DO -[facility] Work Phone: Start: 02-18-2025 End: 02-18-[address] ASSISTANT-C Work Phone: [facility] Work Phone: Start: 02-18-2025 End: 02-18-2025 ambulatory María Elena Solomon Facility:[facility] Start: 02-03-2025 End: 02-03-2025 Patient encounter procedure Chioma Springer COURT ASSISTANT-C -[facility] Work Phone: Start: 02-03-2025 End: 02-03-[address] ASSISTANT-C Work Phone: [facility] Work Phone: Start: 02-03-2025 End: 02-03-2025 ambulatory Minerva Flower Facility:[facility] Start: 01-20-2025 End: 01-20-2025 Patient encounter procedure Amber Gomez BALES -[facility] Work Phone: Start: 01-20-2025 End: 01-20-[address] ASSISTANT-C Work Phone: [facility] Work Phone: Start: 01-13-2025 End: 01-13-2025 ambulatory MD [facility] Start: 01-08-2025 End: 01-08-[address] ASSISTANT-C Work Phone: [facility] Work Phone: Start: 01-08-2025 End: 01-08-[address] María Elena Solomon DO -Ultrasound, [facility] Work Phone: Start: 01-08-2025 End: 01-08-2025 ambulatory María Elena Solomon Facility:[facility] Start: 01-06-2025 End: 01-06-[address] ASSISTANT-C Work Phone: [facility] Work Phone: Start: 01-06-2025 End: 01-06-2025 Patient encounter procedure Elle [facility]oe CNM [facility] Work Phone: Start: 01-06-2025 End: 01-06-2025 ambulatory María Elena Solomon Facility:[facility] Start: 12-18-2024 End: 12-18-[address] María Elena Solomon DO -[facility] Work Phone: Start: 12-18-2024 End: 12-18-2024 ambulatory María Elena Solomon Facility:[facility] [place] [facility] Start: 11-18-2024 End: 11-18-2024 Patient encounter procedure Chioma VALENTINEC -[facility] Work Phone: Start: 11-18-2024 End: 11-18-2024 ambulatory Minerva Flower Facility:[facility] [place] Start: 11-10-2024 End: 11-10-[address] ASSISTANT-C Work Phone: [facility] Work Phone: Start: 11-10-2024 End: 11-10-[address] Radha Peters MD -[facility] Work Phone: Start: 11-10-2024 End: 11-10-2024 ambulatory Minerva Flower Facility:[facility] Start: 10-22-2024 End: 10-22-2024 Patient encounter procedure Chioma VALENTINEC -Laboratory, Specimen Work Phone: Start: 10-22-2024 End: 10-22-2024 Patient encounter procedure Chioma Springer NP-C -[facility] Work Phone: Start: 10-22-2024 End: 10-22-2024 ambulatory Minerva Flower Facility:[facility] [place] Start: 10-22-2024 End: 10-22-2024 ambulatory Minerva Flower Facility:[facility] Start: 09-23-2024 End: 09-23-[address] Radha Peters MD -[facility] Work Phone: Start: 09-23-2024 End: 09-23-2024 ambulatory Minerva D Flower Facility:[facility] Start: 09-16-2024 End: 09-16-2024 ambulatory MINERVA D FLOWER [facility] Ambulatory Start: 09-15-2024 End: 09-15-[address] Radha Peters MD -Lab, [facility] Start: 09-15-2024 End: 09-15-2024 ambulatory Minerva D Flower Facility:[facility] Start: 08-22-2024 End: 08-22-[address] Radha Peters MD -Ultrasound, [facility] Work Phone: Start: 08-22-2024 End: 08-22-2024 Patient encounter procedure Elle Poe CNM -[facility] Work Phone: Start: 08-22-2024 End: 08-22-2024 ambulatory Minerva D Flower Facility:[facility] Start: 08-22-2024 End: 08-22-2024 ambulatory Minerva D Flower Facility:[facility] Start: 08-15-2024 Non-patient / Non-visit Faith herbert RN -[facility] Work Phone: Start: 08-15-2024 ambulatory Minerva D Flower Facility:[facility] Start: 08-13-2024 End: 08-13-[address] Radha Peters MD -[facility] Work Phone: Start: 08-13-2024 End: 08-13-2024 ambulatory Minerva D Flower Facility:[facility] Start: 08-11-2024 End: 08-11-[address] Radha Peters MD -Laboratory Work Phone: Start: 08-11-2024 End: 08-11-[address] 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 Phone: [facility] Comment on above: Leukocytosis, unspec ified type (Primary Dx); B12 deficiency; Vitamin D deficiency Start: 07-29-2024 End: 07-29-2024 ambulatory [facility] Ambulatory Start: 07-25-2024 End: 07-25-2024 Patient encounter status Minerva Flower CUT PRESSMAN-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 CAREGIVER Work Phone: [facility] Work Phone: Start: 07-25-2024 End: 07-25-2024 Periodic preventive med est patient 18-39 yrs Minerva Flower CUT PRESSMAN-ELDERLY CAREGIVER Work Phone: [facility] Comment on above: Wellness examination (Primary Dx); Vitamin D deficiency; Iron deficiency anemia, unspecified iron deficiency anemia type; Amenorrhea Start: 07-25-2024 End: 07-25-2024 ambulatory MINERVA Kolby [facility] Start: 07-25-2024 End: 07-25-2024 Encounter for general adult medical examination without abnormal findings MINERVA Jarrett [facility] Start: 10-19-2023 End: 10-19-2023 ambulatory [facility] Ambulatory Start: 10-13-2023 End: 10-13-2023 ambulatory MINERVA Jarrett [facility] Start: 07-05-2023 End: 07-05-2023 Office outpatient visit 25 minutes Minerva Flower CUT PRESSMAN-ELDERLY CAREGIVER Work Phone: [facility] Comment on above: Pharyngitis, unspeci fied etiology (Primary Dx) Start: 05-30-2023 Encounter for genera l adult medical examination without abnormal findings MINERVA Jarrett [facility] Start: 05-30-2023 Patient encounter status Minerva Flower CUT PRESSMAN-ELDERLY CAREGIVER Work Phone: [facility] Work Phone: Start: 11-30-2021 End: 11-30-2021 Emergency department patient visit Verona Aviles [facility] Emergency 14 Procedures Date Procedure Procedure Detail Performing Clinician Start: 03-30-2025 Serologic test for syphilis Minerva Flower COURT ASSISTANT-C Work Phone: Start: 03-11-2025 Beta-hemolytic Strep tococcus culture Minerva Torres COURT ASSISTANT-C Work Phone: Start: 02-19-2025 Ultrasonography for antepartum monitoring of fetus Minerva Flower COURT ASSISTANT-C Work Phone: Start: 02-18-2025 Gram stain microscopy A jeanine Flower COURT ASSISTANT-C Work Phone: Start: 02-18-2025 Source specific culture Minerva Flower COURT ASSISTANT-C Work Phone: Start: 02-18-2025 Urine culture Minerva Sparrow y COURT ASSISTANT-C Work Phone: Start: 01-08-2025 Ultrasound scan for growth Minerva Flower COURT ASSISTANT-C Work Phone: Start: 01-06-2025 Serologic test for syphilis Minerva Flower COURT ASSISTANT-C Work Phone: Start: 11-10-2024 Ultrasonography in f irst trimester Minerva Flower COURT ASSISTANT-C Work Phone: Start: 10-22-2024 End: 10-22-2024 Polymerase chain reaction analysis Minerva Flower COURT ASSISTANT-C Work Phone: Start: 08-22-2024 Transvaginal obstetr ic ultrasonography Minerva Flower COURT ASSISTANT-C Work Phone: Start: 08-22-2024 Urine culture Minerva Sparrow y COURT ASSISTANT-C Work Phone: Start: 10-13-2023 CBC W Auto Different ial panel - Blood MINERVA FLOWER Start: 10-13-2023 Ferritin [Mass/volum e] in Serum or Plasma MINERVA FLOWER Start: 10-13-2023 IRON AND TIBC MINREVA Ferro Start: 10-13-2023 PTH, INTACT MINERVA FLOWER Start: 10-13-2023 VITAMIN D 25-HYDROXY,TOTAL MINERVA FLOWER Start: 05-23-2023 Lipid 1996 panel - S jamison or Plasma Minerva Torres CUT PRESSMAN-ELDERLY CAREGIVER Work Phone: Plan of Treatment Date Care Activity Detail Author Start: 2048 Zoster Vaccines (1 of 2) Zoste r Vaccines (1 of 2) [facility] Start: 05-23-2028 Lipid panel Lipid Panel [facility] Start: 07-26-2025 Yearly Adult Physical Yearly Adult P hysical [facility] Start: 04-01-[address] [facility] Start: 03-31-2025 Application of abdom inal corset [facility] Start: 03-31-2025 [facility] Start: 03-30-2025 End: 03-30-2025 [facility] Start: 03-30-2025 End: 03-30-2025 Notification of physician [facility] Start: 03-30-2025 Administration of medication [facility] Start: 03-30-2025 Ambulation therapy management [facility] Start: 03-30-2025 Application of device [facility] Start: 03-30-2025 Application of intermittent pneumatic compression device [facility] Start: 03-30-2025 Assessment of risk o f venous thromboembolism [facility] Start: 03-30-2025 Catheterization of vein [facility] Start: 03-30-2025 Deep breathing and coughing exercises [facility] Start: 03-30-2025 Exercises [facility] Start: 03-30-2025 Measuring intake and output [facility] Start: 03-30-2025 Procedure discontinued [facility] Start: 03-30-2025 Provision of activit y privileges [facility] Start: 03-30-2025 Skin care [facility] Start: 03-30-2025 Wound care [facility] Start: 03-30-2025 Application of abdom inal corset [facility] Start: 03-30-2025 Vital signs measurements [facility] Start: 03-30-2025 section Repeat C-Sect ion (Not Applicable) [facility] Start: 03-30-2025 Admission procedure [facility] Start: 03-30-2025 Consultation [facility] Start: 03-30-2025 [facility] Start: 02-26-2025 Nonstress test [facility] Start: 02-26-2025 Obstetric monitoring [facility] Start: 02-26-2025 Vital signs measurements [facility] Start: 02-26-2025 [facility] Start: 02-26-[address] [facility] Start: 02-19-2025 Nonstress test [facility] Start: 02-19-2025 Obstetric monitoring [facility] Start: 02-19-2025 Vital signs measurements [facility] Start: 02-19-2025 [facility] Start: 02-19-[address] [facility] Start: 02-18-2025 Bacteria identified in Urine by Culture Urine Culture [facility] Start: 02-18-2025 Genital Culture Genital Culture [facility] Start: 02-18-2025 Microscopic observat ion [Identifier] in Unspecified specimen by Gram stain Gram Stain [facility] Start: 02-18-2025 Source specific culture [facility] Start: 02-18-2025 [facility] Start: 02-03-2025 CBC W Auto Different ial panel - Blood [facility] Start: 07-29-2024 End: 07-29-2025 CBC W Auto Differential panel - Blood CBC and Auto Differential Lab Routine Leukocytosis, unspecified type Expected: 07/29/2024 (Approximate), Expires: 07/29/2025 [facility] Work Phone: Comment on above: Expected: 07/29/2024 (Approximate), Expires: 07/29/2025 Start: 07-25-2024 End: 07-25-2025 25-hydroxyvitamin D3 [Mass/volume] in Serum or Plasma Vitamin D 25-Hydroxy,Total (for eval of Vitamin D levels) Lab Routine Vitamin D deficiency Expected: 07/25/2024 (Approximate), Expires: 07/25/2025 [facility] Work Phone: Comment on above: Expected: 07/25/2024 (Approximate), Expires: 07/25/2025 Start: 07-25-2024 End: 01-22-2026 CBC W Auto Differential panel - Blood CBC and Auto Differential Lab Routine Wellness examination Expected: 07/25/2024 (Approximate), Expires: 01/22/2026 [facility] Work Phone: Comment on above: Expected: 07/25/2024 (Approximate), Expires: 01/22/2026 Start: 07-25-2024 End: 07-25-2025 Choriogonadotropin.beta subunit [Units/volume] in Serum or Plasma Human Chorionic Gonadotropin, Serum Quantitative Lab Routine Amenorrhea Expected: 07/25/2024 (Approximate), Expires: 07/25/2025 [facility] Work Phone: Comment on above: Expected: 07/25/2024 (Approximate), Expires: 07/25/2025 Start: 07-25-2024 End: 07-25-2025 Cobalamin (Vitamin B12) [Mass/volume] in Serum or Plasma Vitamin B12 Lab Routine Iron deficiency anemia, unspecified iron deficiency anemia type Expected: 07/25/2024 (Approximate), Expires: 07/25/2025 [facility] Work Phone: Comment on above: Expected: 07/25/2024 (Approximate), Expires: 07/25/2025 Start: 07-25-2024 End: 07-25-2025 Comprehensive metabolic 2000 panel - Serum or Plasma Comprehensive Metabolic Panel Lab Routine Wellness examination Expected: 07/25/2024 (Approximate), Expires: 07/25/2025 [facility] Work Phone: Comment on above: Expected: 07/25/2024 (Approximate), Expires: 07/25/2025 Start: 07-25-2024 End: 07-25-2025 Ferritin [Mass/volume] in Serum or Plasma Ferritin Lab Routine Iron deficiency anemia, unspecified iron deficiency anemia type Expected: 07/25/2024 (Approximate), Expires: 07/25/2025 [facility] Work Phone: Comment on above: Expected: 07/25/2024 (Approximate), Expires: 07/25/2025 Start: 07-25-2024 End: 07-25-2025 Hemoglobin A1c/Hemoglobin.total in Blood Hemoglobin A1C Lab Routine Wellness examination Expected: 07/25/2024 (Approximate), Expires: 07/25/2025 [facility] Work Phone: Comment on above: Expected: 07/25/2024 (Approximate), Expires: 07/25/2025 Start: 07-25-2024 End: 07-25-2025 Iron and Iron binding capacity panel - Serum or Plasma Iron and TIBC Lab Routine Iron deficiency anemia, unspecified iron deficiency anemia type Expected: 07/25/2024 (Approximate), Expires: 07/25/2025 [facility] Work Phone: Comment on above: Expected: 07/25/2024 (Approximate), Expires: 07/25/2025 Start: 07-25-2024 End: 07-25-2025 Lipid 1996 panel - Serum or Plasma Lipid Panel Lab Routine Wellness examination Expected: 07/25/2024 (Approximate), Expires: 07/25/2025 [facility] Work Phone: Comment on above: Expected: 07/25/2024 (Approximate), Expires: 07/25/2025 Start: 07-25-2024 End: 07-25-2025 Parathyrin.intact [Mass/volume] in Serum or Plasma Parathyroid Hormone, Intact Lab Routine Vitamin D deficiency Expected: 07/25/2024 (Approximate), Expires: 07/25/2025 [facility] Work Phone: Comment on above: Expected: 07/25/2024 (Approximate), Expires: 07/25/2025 Start: 07-25-2024 End: 07-25-2025 TSH with reflex to Free T4 if abnormal TSH with reflex to Free T4 if abnormal Lab Routine Wellness examination Expected: 07/25/2024 (Approximate), Expires: 07/25/2025 [facility] Work Phone: Comment on above: Expected: 07/25/2024 (Approximate), Expires: 07/25/2025 Start: 06-03-2024 End: 06-03-2024 Patient encounter procedure 06/03/2024 3:20 PM EDT Office Visit [facility] [address] [place] [address] Minerva Flower, CUT PRESSMAN-ELDERLY CAREGIVER [address] [place] [address] [facility] Start: 05-31-2024 Yearly Adult Physical Yearly Adult P hysical [facility] Start: 05-11-2024 COVID-19 Vaccine ( season) COVID-19 Vaccine ( season) [facility] Start: 05-11-2024 Influenza vaccination Influenza Vacc ine (#1) [facility] Start: 05-11-2023 Influenza vaccination Influenza Vacc ine (#1) [facility] Start: 2020 DTaP/Tdap/Td Vaccine s (1 - Tdap) DTaP/Tdap/Td Vaccines (1 - Tdap) [facility] Start: 2019 Screening for malign ant neoplasm of cervix [facility] Start: 2017 Hepatitis B Vaccines (1 of 3 - 19+ 3-dose series) Hepatitis B Vaccines (1 of 3 - 19+ 3-dose series) [facility] Start: 2016 Hepatitis C screening Hepatitis C Nd caden [facility] Start: 2013 HPV Vaccines (1 - 3- dose series) HPV Vaccines (1 - 3-dose series) [facility] Start: 2011 Varicella vaccination Varicell a Vaccines (1 of 2 - 13+ 2-dose series) [facility] Start: 2009 HPV Vaccines (1 - 2- dose series) HPV Vaccines (1 - 2-dose series) [facility] Start: 1999 MMR Vaccines (1 of 1 - Standard series) MMR Vaccines (1 of 1 - Standard series) [facility] Start: 1999 Varicella vaccination Varicell a Vaccines (1 of 2 - 2-dose childhood series) [facility] Start: 01-19-1999 COVID-19 Vaccine (#1) COVID-19 Vacci ne (#1) [facility] Start: 1998 Hepatitis B Vaccines (1 of 3 - 3-dose series) Hepatitis B Vaccines (1 of 3 - 3-dose series) [facility] Start: 1998 HIV screening HIV Screening [facility] Chlamydia deoxyribon ucleic acid detection [facility] Erythrocyte mean corpuscular volume determination [facility] Genital microscopy, culture and sensitivities [facility] Hematocrit [Volume Fraction] of Blood [facility] Hemoglobin [Mass/vol ume] in Blood [facility] Leukocytes [#/volume ] in Blood [facility] Liquid based cervica l cytology screening [facility] Mean corpuscular hemoglobin concentration determination [facility] Mean corpuscular hemoglobin determination [facility] Microscopic observat ion [Identifier] in Unspecified specimen by Gram stain [facility] Neutrophil count [facility] Neutrophil percent differential count [facility] Patient Education Kick Counts ED False Labor OB Triage: Return to Hospital or Notify Physician if you Experience: [facility] Work Phone: Patient referral [facility] Work Phone: Platelets [#/volume] in Blood [facility] Red blood cell count [facility] Red cell distributio n width determination [facility] Source specific culture [facility] Streptococcus agalac tiae [Presence] in Unspecified specimen by Organism specific culture [facility] Urine culture [facility] Payers Date Payer Category Payer Unknown [id number] 2024 Self-pay 2023 Managed Care (Private) [facility] [id number] 2023 Private Health Insurance [id number] 2020 Private Health Insurance [employer] [facility] [id number] 2020-Present [address] [place] [address] [id number]. [id number] 1998 Unknown [id number] 2.16840.1.171946.3.579. 2.1245 1998 Unknown [id number] 2.16840.1.469660.3.579. 2.1245 1998 Unknown [id number] 2.16840.1.387015.3.579. 2.1245 1998 Unknown [id number] 2.16840.1.717733.3.579. 2.1244 1998 Unknown [id number] 2.16840.1.201254.3.579. 2.1244 1998 Unknown [id number] 2.16840.1.394613.3.579. 2.1244 1998 Unknown [id number] 2.16840.1.239420.3.579. 2.1244 1998 Unknown [id number] 2.16840.1.701974.3.579. 2.479 1998 Unknown [id number] 2.16840.1.459063.3.579. 2.479 Unknown [employer] [facility] Unknown [id number] 2.16840.1.843794.3.579. 2.462 Unknown [id number] 2.16.840.1.887232.3.579. 2.462 Unknown [id number] 2.16.840.1.147707.3.579. 2.462 Unknown [id number] 2.16.840.1.910500.3.579. 2.462 Unknown [id number] 2.16.840.1.481771.3.579. 2.462 Unknown [id number] 2.16840.1.617195.3.579. 2.462 Unknown [id number] 2.16840.1.102506.3.579. 2.462 Unknown [id number] 2.840.1.179364.3.579. 2.462 Unknown [id number] 2.840.1.603509.3.579. 2.462 Unknown [id number] 2.840.1.937421.3.579. 2.462 Unknown [id number] 2.840.1.140771.3.579. 2.462 Unknown [id number] 2.840.1.109410.3.579. 2.462 Unknown [id number] 2.840.1.118071.3.579. 2.462 Unknown [id number] 2.840.1.064037.3.579. 2.462 Unknown [id number] 2.840.1.659318.3.579. 2.462 Unknown [id number] 2.16840.1.956187.3.579. 2.462 Unknown [id number] 2.16.840.1.951395.3.579. 2.462 Unknown [id number] 2.16840.1.047038.3.579. 2.462 Unknown [id number] 2.16.840.1.416797.3.579. 2.462 Unknown [id number] 2.840.1.488361.3.579. 2.462 Unknown [id number] 2.16.840.1.130745.3.579. 2.462 Unknown [id number] 2.16.840.1.529240.3.579. 2.462 Unknown [id number] 2.16.840.1.690148.3.579. 2.462 Unknown [id number] 2.16.840.1.385488.3.579. 2.462 Unknown [id number] 2.16.840.1.499041.3.579. 2.462 Unknown [id number] 2.16840.1.399082.3.579. 2.462 Unknown [id number] 2.16.840.1.025272.3.579. 2.462 Unknown [id number] 2.840.1.935254.3.579. 2.462 Unknown [id number] 2.840.1.425350.3.579. 2.462 Unknown [id number] 2.16840.1.995091.3.579. 2.462 Unknown [id number] 2.840.1.718447.3.579. 2.462 Unknown [id number] 2.840.1.343778.3.579. 2.462 Unknown [id number] 2.840.1.453612.3.579. 2.462 Unknown [id number] 2.16840.1.298697.3.579. 2.462 Unknown [id number] 2.16840.1.937566.3.579. 2.462 Unknown [id number] 2.16.840.1.940853.3.579. 2.462 Unknown [id number] 2.16840.1.774714.3.579. 2.462 Unknown [id number] 2.16.840.1.464215.3.579. 2.462 Unknown [id number] 2.16840.1.338598.3.579. 2.462 Social History Date Type Detail Facility [facility] Tobacco smoking consumption unknown [facility] Start: 05-23-2023 End: 03-30-2025 Tobacco smoking status NHIS Never smoked tobacco [facility] Work Phone: Start: 05-23-2023 Tobacco use and exposure Smokeless tobacco non-user [facility] Work Phone: Start: 07-05-2023 End: 07-29-2024 Alcohol intake Current drinker of alcohol (finding) [facility] Work Phone: Start: 05-30-2023 End: 07-25-2024 History of Social function [facility] Work Phone: Start: 05-30-2023 End: 07-25-2024 Tobacco use panel [facility] Work Phone: Start: 05-23-20[address] Tobacco [address] [facility] Work Phone: Start: 05-23-2023 Alcohol Comment Occasional alc hohol use. Once per month at maximum. [facility] Work Phone: Start: 2000 Sex Assigned At Not on file [facility] Work Phone: Start: 06-25-2023 End: 07-29-2024 Exposure to SARS-CoV-2 (event) Unable to assess [facility] Work Phone: Start: 07-15-2024 End: 07-25-2024 Exposure to SARS-CoV-2 (event) Not sure [facility] Start: 11-21-2024 Sex Female (finding) [facility] Start: 2000 Sex Assigned At Female W [facility] Goals Date Patient Goal Desired Activity /State Mental Status Date Assessment Result Facility 03-30-2025 Cognitive function Level Of Cons ciousness Awake;Alert;Appropriate;Follow s Commands [facility] Work Phone: 03-30-2025 Cognitive function Arousable To Voice/Nam e [facility] Work Phone: Clinical Notes 07-02-2023 to 04-01-2025 Note Date & Type Note Facility 04-01-2025 Progress note [facility] 04-01-2025 Progress note Note Date/Time April 01, 2025 10:25am [facility] Medical Records Department [address] [place] [address] Progress Note - OBGYN 04/01/25 0609 MR#: [id number] Acct: [id number] Name: MADDIE TORRE Rep #:[id number] : 2000 24 From: Radha patricia MD PCP: Minerva Flower COURT ASSISTANT-C Status:ADM IN Location: [place] [address] Subjective Subjective Patient doing well without complaints. Tolerating PO. Ambulating and voiding without difficulty. feeding well. Denies chest pain, shortness of breath,calf pain/swelling, fevers, chills, lightheadedness. Objective Data Objective Data Vital Signs: Vital Signs Temp Pulse Resp BP Pulse Ox O2 Del Method 97.5 F L 97 14 118/80 97 Room Air 04/01/25 02:01 04/01/25 02:01 04/01/25 02:01 04/01/25 02:01 04/01/25 02:01 04/01/25 02:01 Oxygen Delivery Method Room Air Weight: 205 lb Body Mass Index (BMI) 37.5 Intake & Output: Intake and Output for Last 24 Hours 03/30/25 03/31/25 04/01/25 23:59 23:59 23:59 Intake Total 3951.67 / 3951.67 Output Total 2140 / 2140 1400 / 1400 Balance 1811.67 / 1811.67 -1400 / -1400 Lab / Micro Data 03/31/25 06:00 Labs: Laboratory Results - last 24 hr 03/31/25 06:00: WBC 17.2 H, RBC 3.35 L, Hgb 9.9 L, Hct 30.2 L, MCV 90.1, MCH 29.6, MCHC 32.8, RDW Std Deviation 52.0 H, RDW Coeff of Vern 15.7 H, Plt Count 204, MPV 12.4 H ROS Constitutional Constitutional: Reports systems reviewed and no addt'l complaints, except as documented Cardiovascular Cardiovascular: Reports systems reviewed and no addt'l complaints, except as documented Respiratory/Chest Respiratory/Chest: Reports systems reviewed and no addt'l complaints, except as documented Gastrointestinal Gastrointestinal: Reports systems reviewed and no addt'l complaints, except as documented Physical Exam Const alert, oriented x3 and no apparent distress HEENT Head and Scalp: atraumatic Resp normal respiratory effort GI soft to palpation and non-tender Inspection: incision intact, healing well and drainage (none) Bimanual Exam - Vag & Uterus: uterus non-tender Uterus Palpation: uterus fundus firm (below Umbilicus) Assessment & Plan (1) delivery delivered: COMMENT: ltcs sm 39 breech boy indie PLAN: Plan s/p LTCS PPD # 2 1. routine post care 2. breast feeding- support given 3. rh positive 4. rubella immune 04/01/25 0609 <Electronically signed by Radha Peters MD> Cosigner Signature (if applicable): CC: ~ Signed [facility] Work Phone: 1(474) 934-894907-22-2025 Discharge summary Author Radha Peters [facility] Note Date/Time March 31, 2025 2:01 pm [facility] Medical Records Department [address] [place] [address] Instructions for Home/Discharge Instructions 03/30/25 0840 MR#: [id number] Acct: [id number] Name: HARVEYMADDIE IVERSON Rep #:[id number] : 2000 24 From: Radha patricia MD PCP: Minerva Flower COURT ASSISTANTJudsonC Status:ADM IN Discharge Instructions DC O2, CPAP, BIPAP needs Home O2 Discharge instructions: No Dressing / Incision Discharge Activity: May Not Drive (for 2 weeks or while taking narcotic pain medications.), May Shower and May Take a Tub Bath (in 7 days) May shower in (days): 0 May resume sexual activity in: 4-6 weeks Weight Bearing Status: Full weight bearing Lifting Restrictions: 20 pounds Dressing / Incision Call your doctor if your incision/area has: Continuous Slow Oozing, Sudden Increased Bleeding, Increased Pain/ Swelling, Increased Redness and Foul Smelling Discharge Call your doctor if you observe: Fever of 101 or Higher and Using more than 1 pad per hour (for 2 hours) Suture Line Care: Avoid Pulling/Pushing and Avoid Pinching/Bending Cleanse incision/area with: Soap & Water and Keep Dressing Clean & Dry Follow Up Care Please Follow Up With: Radha Peters MD When: Call [phone] to make an appointment for an incision check in 1-2 weeks. Test Results: Test results from this visit will be discussed in further detail at your follow- up appointment, if applicable. Discharge Plan Admission Admit Date/Time: 03/30/25 05:10 Attending Provider: Radha Peters Primary Care Provider: Minerva Flower Discharge Orders/Prescriptions Prescriptions: No Action Slow Fe 137 mg (45 mg iron) tablet extended release 137 mg PO QDAY famotidine [Pepcid AC] 20 mg tablet 20 mg PO BID Gummies 400 mcg-35 mg- 25 mg-5 mg tablet,chewable 1 tab PO DAILY Referrals / Follow Up: Minerva Flower, JOHANNA-C [Primary Care Provider] - 03/31/25 1401<Electronically signed by Radha Peters MD>Radha Peters MD CC: COURT ASSISTANT-C Minerva Flower ~ Signed [facility] Work Phone: 1(454) 850-844207-22-2025 Progress note Author Radha Peters [facility] Note Date/Time March 31, 2025 2:01 pm [facility] Medical Records Department [address] [place] [address] Progress Note - OBGYN 03/31/25 0723 MR#: [id number] Acct: [id number] Name: MADDIE TORRE Rep #:[id number] : 2000 24 From: Radha patricia MD PCP: AMEE Quinteros Status:ADM IN Location: [id number] Subjective Subjective Patient doing well without complaints. Tolerating PO. Ambulating and voiding without difficulty. infant feeding well. Denies chest pain, shortness of breath,calf pain/swelling, fevers, chills, lightheadedness. Objective Data Objective Data Vital Signs: Vital Signs Temp Pulse Resp BP Pulse Ox O2 Del Method 97.0 F L 64 16 101/62 98 Room Air 03/31/25 03:26 03/31/25 03:26 03/31/25 03:26 03/31/25 03:26 03/31/25 03:26 03/31/25 03:26 Oxygen Delivery Method Room Air Weight: 205 lb Body Mass Index (BMI) 37.5 Intake & Output: Intake and Output for Last 24 Hours 03/29/25 03/30/25 03/31/25 23:59 23:59 23:59 Intake Total 3951.67 / 3951.67 Output Total 2140 / 2140 1400 / 1400 Balance 1811.67 / 1811.67 -1400 / -1400 Lab / Micro Data 03/31/25 06:00 Labs: Laboratory Results - last 24 hr 03/30/25 05:35: Blood Type O POSITIVE, Antibody Screen NEGATIVE 03/31/25 06:00: WBC 17.2 H, RBC 3.35 L, Hgb 9.9 L, Hct 30.2 L, MCV 90.1, MCH 29.6, MCHC 32.8, RDW Std Deviation 52.0 H, RDW Coeff of Vern 15.7 H, Plt Count 204, MPV 12.4 H ROS Constitutional Constitutional: Reports systems reviewed and no addt'l complaints, except as documented Cardiovascular Cardiovascular: Reports systems reviewed and no addt'l complaints, except as documented Respiratory/Chest Respiratory/Chest: Reports systems reviewed and no addt'l complaints, except as documented Gastrointestinal Gastrointestinal: Reports systems reviewed and no addt'l complaints, except as documented Physical Exam Const alert, oriented x3 and no apparent distress HEENT Head and Scalp: atraumatic Resp normal respiratory effort GI soft to palpation and non-tender Inspection: incision intact, healing well and drainage (none) Bimanual Exam - Vag & Uterus: uterus non-tender Uterus Palpation: uterus fundus firm (below Umbilicus) Assessment & Plan (1) delivery delivered: COMMENT: ltcs sm 39 breech boy indie PLAN: Plan s/p LTCS PPD # 1 1. routine post care 2. breast feeding- support given 3. rh positive 4. rubella immune 03/31/25 1401 <Electronically signed by Radha Peters MD> Cosigner Signature (if applicable): CC: ~ Signed [facility] Work Phone: 1(375) 628-377007-22-2025 Discharge summary [facility] Medical Records Department [address] [place] [address] Instructions for Home/Discharge Instructions 03/30/25 0840 MR#: [id number] Acct: [id number] Name: MADDIE TORRE Rep #:[id number] : 2000 24 From: Radha patricia MD PCP: SERGE QuinterosC Status:ADM IN Discharge Instructions DC O2, CPAP, BIPAP needs Home O2 Discharge instructions: No Dressing / Incision Discharge Activity: May Not Drive (for 2 weeks or while taking narcotic pain medications.), May Shower and May Take a Tub Bath (in 7 days) May shower in (days): 0 May resume sexual activity in: 4-6 weeks Weight Bearing Status: Full weight bearing Lifting Restrictions: 20 pounds Dressing / Incision Call your doctor if your incision/area has: Continuous Slow Oozing, Sudden Increased Bleeding, Increased Pain/ Swelling, Increased Redness and Foul Smelling Discharge Call your doctor if you observe: Fever of 101 or Higher and Using more than 1 pad per hour (for 2 hours) Suture Line Care: Avoid Pulling/Pushing and Avoid Pinching/Bending Cleanse incision/area with: Soap & Water and Keep Dressing Clean & Dry Follow Up Care Please Follow Up With: Radha Peters MD When: Call [phone] to make an appointment for an incision check in 1-2 weeks. Test Results: Test results from this visit will be discussed in further detail at your follow- up appointment, if applicable. Discharge Plan Admission Admit Date/Time: 03/30/25 05:10 Attending Provider: Radha Peters Primary Care Provider: Minerva Flower Discharge Orders/Prescriptions Prescriptions: No Action Slow Fe 137 mg (45 mg iron) tablet extended release 137 mg PO QDAY famotidine [Pepcid AC] 20 mg tablet 20 mg PO BID Gummies 400 mcg-35 mg- 25 mg-5 mg tablet,chewable 1 tab PO DAILY Referrals / Follow Up: Minerva Flower, COURT ASSISTANT-C [Primary Care Provider] - 03/31/25 1401Sreanna Peters MD CC: COURT ASSISTANT-C Minerva Flower ~ Signed [facility]2025 Progress note [facility] Medical Records Department [address] [place] [address] Progress Note - OBGYN 03/31/2523 MR#: [id number] Acct: [id number] Name: MADDIE TORRE Rep #:[id number] : 2000 24 From: Radha patricia MD PCP: AMEE Quinteros Status:ADM IN Location: [place] [address] Subjective Subjective Patient doing well without complaints. Tolerating PO. Ambulating and voiding without difficulty. feeding well. Denies chest pain, shortness of breath,calf pain/swelling, fevers, chills, lightheadedness. Objective Data Objective Data Vital Signs: Vital Signs Temp Pulse Resp BP Pulse Ox O2 Del Method 97.0 F L 64 16 101/62 98 Room Air 03/31/25 03:26 03/31/25 03:26 03/31/25 03:26 03/31/25 03:26 03/31/25 03:26 03/31/25 03:26 Oxygen Delivery Method Room Air Weight: 205 lb Body Mass Index (BMI) 37.5 Intake & Output: Intake and Output for Last 24 Hours 03/29/25 03/30/25 03/31/25 23:59 23:59 23:59 Intake Total 3951.67 / 3951.67 Output Total 2140 / 2140 1400 / 1400 Balance 1811.67 / 1811.67 -1400 / -1400 Lab / Micro Data 03/31/25 06:00 Labs: Laboratory Results - last 24 hr 03/30/25 05:35: Blood Type O POSITIVE, Antibody Screen NEGATIVE 03/31/25 06:00: WBC 17.2 H, RBC 3.35 L, Hgb 9.9 L, Hct 30.2 L, MCV 90.1, MCH 29.6, MCHC 32.8, RDW Std Deviation 52.0 H, RDW Coeff of Vern 15.7 H, Plt Count 204, MPV 12.4 H ROS Constitutional Constitutional: Reports systems reviewed and no addt'l complaints, except as documented Cardiovascular Cardiovascular: Reports systems reviewed and no addt'l complaints, except as documented Respiratory/Chest Respiratory/Chest: Reports systems reviewed and no addt'l complaints, except as documented Gastrointestinal Gastrointestinal: Reports systems reviewed and no addt'l complaints, except as documented Physical Exam Const alert, oriented x3 and no apparent distress HEENT Head and Scalp: atraumatic Resp normal respiratory effort GI soft to palpation and non-tender Inspection: incision intact, healing well and drainage (none) Bimanual Exam - Vag & Uterus: uterus non-tender Uterus Palpation: uterus fundus firm (below Umbilicus) Assessment & Plan (1) delivery delivered: COMMENT: ltcs sm 39 breech boy indie PLAN: Plan s/p LTCS PPD # 1 1. routine post care 2. breast feeding- support given 3. rh positive 4. rubella immune 03/31/25 1401 Cosigner Signature (if applicable): CC: ~ Signed [facility]07-21-2025 History and physical note Author Radha Peters [facility] Note Date/Time March 30, 2025 7:19 am [facility] Medical Records Department [address] [place] [address] H&P Exam - ASSOCIATE ACCOUNTANT 03/30/25 0641 MR#: [id number] Acct: [id number] Name: MADDIE TORRE Rep #:[id number] : 2000 24 From: Radha patricia MD PCP: SERGE QuinterosC Status:ADM IN [facility] - General General Date of Admission: 03/30/25 HPI Narrative MADDIE TORRE, is a 24 F who presents for primary low transverse secondary to breech presentation. she has had an otherwise uncomplicated . Maternal Data Information ITZEL Calculator Estimated Delivery Date Method Current WG Current Estimate 04/06/25 Ultrasound #1 39w 0d Other Estimates 03/30/25 LMP (Certain) 40w 0d PFSH PFS Medical History (Updated 03/30/25 @ 05:52 by Maddie Florentino) Chlamydia infection affecting Spontaneous Home Medications ?Medication ?Instructions ?Recorded ?Last Taken ?Type ferrous sulfate 137 mg (45 mg 137 mg PO QDAY anemia 03/29/25 History iron) tablet,extended release (Slow Fe) famotidine 20 mg tablet (Pepcid AC) 20 mg PO BID heart burn 02/18/25 03/29/25 History PNV 153-FA 400 mcg-om3 35 mg-dha 1 tab PO DAILY pregna ncy 02/19/25 03/29/25 History 25 mg-epa 5 mg-fish oil chew tablet ( Gummies) Allergy/AdvReac Type Severity Reaction Status Date / Time No Known Allergies Allergy Verified 03/30/25 05:33 Family History Grandmother Cancer Lung-Maternal Aunt Cancer Pancreatic- Maternal Surgical History (Updated 03/30/25 @ 05:52 by Maddie Florentino) History of surgery Social History adopted: No household members: spouse current occupational status: 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 Date Name GA/Weeks Outcome Route Bth Weight Infant Gen Labor Lgth Anesthesia Del Locatn Provider FOB 01/09/24 5 spontaneous Visit Details Expected Delivery Route/Plan LTCS Labor Preferences- CB/BF [...] OB Flowsheet Initial Weight: 166 lb Date -?-?-?-?-?-?-?-?-?-?-?-?- EGA [...] or dec fm. no complaints. needs f/u RUBBER OFF. ultrasound ordered. 01/06/25 -?-?-?-?-?-?-?-?-?-?-?-?- 27w 1d 188 [...] oz (+27 lb 6 oz) 108/80 Negative -?-?-?-?-?-?-?--?-?-?-?-?- Negative 142 32 -?-?-?-?-?-?-?-?-?-?-?-?- MH-No Vb, LOF. [...] need gcc next visit, wasn't done today 03/19/25 -?-?-?-?-?-?-?-?-?-?-?-?- 37w 3d 201 lb (+35 lb) 117/79 Negative -?-?-?-?-?-?-?-?-?-?-?-?- Negative 147 37 Breech 1 -?-?-?-?-?-?-?-?-?-?-?-?- 0 -4 JV- no lof , vaginal bleeding, or dec fm. JV- no lof, vaginal bleeding , or dec fm. gc/ct collected. 03/25/25 -?-?-?-?-?-?-?-?-?-?-?-?- 38w 2d 203 lb (+37 lb) 114/79 Negative -?-?-?-?-?-?-?-?-?-?-?-?- Negative 145 39 Breech -?-?-?-?-?-?-?-?-?-?-?-?- SM- no vb lof go od f,m no regular ctx NST FHR Rate Baby A Baseline: 130 Variability:: Moderate Accelerations:: 15 x 15 Decelerations:: None NST Reactive:: Yes FHR Category:: Category I Uterine Activity:: irregular ROS Constitutional Constitutional: Reports systems reviewed and no addt'l complaints, except as documented Eyes Eyes: Denies change in vision ENT HEENT: Reports systems reviewed and no addt'l complaints, except as documented; Denies headache(s) Cardiovascular Cardiovascular: Reports systems reviewed and no addt'l complaints, except as documented; Denies chest pain or dyspnea Respiratory/Chest Respiratory/Chest: Reports systems reviewed and no addt'l complaints, except as documented Gastrointestinal Gastrointestinal: Reports systems reviewed and no addt'l complaints, except as documented; Denies abdominal pain Genitourinary Genitourinary: Reports systems reviewed and no addt'l complaints, except as documented, contractions Details: present (irregular) and movement Details: present; Denies dysuria or genital lesions Musculoskeletal Musculoskeletal: Reports systems reviewed and no addt'l complaints, except as documented Neurologic Neurologic: Reports systems reviewed and no addt'l complaints, except as documented Endocrine Endocrinology: Reports systems reviewed and no addt'l complaints, except as documented Vital Signs Vital Signs Vital Signs: 03/30/25 05:27 03/30/25 05:27 03/30/25 05:27 Temperature Temperature Source Pulse Rate 108 H Respiratory Rate Blood Pressure 117/73 Blood Pressure Mean BP Systolic 117 BP Diastolic 73 Blood Pressure Source Blood Pressure Position Blood Pressure Location Pulse Ox 97 Oxygen Delivery Method 03/30/25 05:41 03/30/25 05:41 03/30/25 05:41 Temperature Temperature Source Temporal Pulse Rate 107 H Respiratory Rate Blood Pressure 117/73 Blood Pressure Mean BP Systolic 117 BP Diastolic 73 Blood Pressure Source Blood Pressure Position Blood Pressure Location Pulse Ox Oxygen Delivery Method 03/30/25 05:41 03/30/25 05:41 03/30/25 05:41 Temperature 97.1 F L Temperature Source Pulse Rate Respiratory Rate 16 Blood Pressure Blood Pressure Mean BP Systolic BP Diastolic Blood Pressure Source Blood Pressure Position Blood Pressure Location Pulse Ox 97 Oxygen Delivery Method 03/30/25 05:54 Temperature 97.1 F L Temperature Source Temporal Pulse Rate 107 H Respiratory Rate 16 Blood Pressure 117/73 Blood Pressure Mean 87 BP Systolic BP Diastolic Blood Pressure Source Monitor Blood Pressure Position Sitting Blood Pressure Location Right Arm Pulse Ox 97 Oxygen Delivery Method Room Air Weight Weight: 205 lb Body Mass Index (BMI) 37.5 Physical Exam Const alert, oriented x3, no apparent distress and healthy appearing HEENT normocephalic and moist oral mucous membranes Head and Scalp: atraumatic Neck full ROM, no lymphadenopathy, supple and thyroid normal General: trachea midline Lymph Lymphatic: no lymphadenopathy noted Chest inspection of chest normal Resp normal respiratory effort Cardio regular rate GI soft to palpation and non-tender GI Narrative: gravid Inspection: gravid external exam normal Manual OB Exam: estimated gestational size appropriate, presentation breech, dilated, effaced and station Extremity normal to inspection General Extremity: Negative for edema Skin no rashes or lesions noted Neuro no focal motor deficits and deep tendon reflexes 2+ bilaterally Motor Exam: strength 5/5 throughout and clonus absent Psych mental status grossly normal Labs Labs Labs: Blood Type O POSITIVE Antibody Screen NEGATIVE Hct 35.8 % (37-47) L Hgb 11.8 g/dL (12.0-15.0) L Obstetrics Ultrasound Syphilis Total Ab Nonreactive (Nonreactive) Rubella IgG Antibody Reactive (Nonreactive) Hep Bs Antigen Non-Reactive (Nonreactive) Hepatitis C Antibody Non-Reactive (Nonreactive) Chlamydia DNA (SHAYLEE) Negative (Negative) N.gonorrhoeae DNA (SHAYLEE) Negative (Negative) HIV 1&2 Antibody Nonreactive (Nonreactive) Glucose 1 Hr 50 gm 126 mg/dL (70-140) Assessment & Plan (1) Breech presentation: COMMENT: desires primary c/s. discussed and declines ECV, C/S 03/30 @ 0715. (2) Anemia in preg-unspec: QUALIFIERS: Trimester: third trimester Qualified Code(s): O99.013 - Anemia complicating , third trimester (3) Chlamydia infection during : COMMENT: 08/26/24 azithromycin sent; 10/22/24 rpt culture:negative repeat culture at 36 weeks with the GBS (4) Family history of hemochromatosis: COMMENT: Pt tested and is NEGATIVE (5) Vegetarian diet: COMMENT: x8 years - recently started eating some meat since (6) Obesity affecting : QUALIFIERS: Obesity type affecting : unspecified obesity Trimester: second trimester Qualified Code(s): O99.212 - Obesity complicating , second trimester COMMENT: BMI 30.4, HgBA1C normal (7) H/O miscarriage, currently : COMMENT: January 2024 (8) Supervision of high-risk : QUALIFIERS: Trimester: third trimester Qualified Code(s): O09.93 - Supervision of high risk , unspecified, third trimester COMMENT: PRR , ITZEL 04/06/25, indie boy : Otoniel (9) : QUALIFIERS: Weeks of gestation: 38 weeks Qualified Code(s): Z3A.38 - 38 weeks gestation of COMMENT: Neg GBS. NIPT low risk, Choroid plexus cysts. PLAN: Plan plan primary low transverse section 03/30/25 0719 <Electronically signed by Rdaha Peters MD> Cosigner Signature (if applicable): CC: AMEE Flower; Dr. Radha Peters MD~ Signed [facility] Work Phone: 1(525) 629-612807-21-2025 Procedure note [facility] Medical Records Department [address] [place] [address] Operative Report 03/30/25 0719 MR#: [id number] Acct: [id number] Name: MADDIE TORRE Rep #:[id number] : 2000 24 From: Radha patricia MD PCP: Minerva Flower, COURT ASSISTANT-C Status:ADM IN Location: [id number] Assessment & Plan (1) Breech presentation: COMMENT: desires primary c/s. discussed and declines ECV, C/S 03/30 @ 0715. (2) Anemia in preg-unspec: QUALIFIERS: Trimester: third trimester Qualified Code(s): O99.013- Anemia complicating , third trimester (3) Chlamydia infection during : COMMENT: 08/26/24 azithromycin sent; 10/22/24 rpt culture:negative repeat culture at 36 weeks with the GBS (4) Family history of hemochromatosis: COMMENT: Pt tested and is NEGATIVE (5) Vegetarian diet: COMMENT: x8 years - recently started eating some meat since (6) Obesity affecting : QUALIFIERS: Trimester: second trimester Obesity type affecting : unspecified obesity Qualified Code(s): O99.212 - Obesity complicating , second trimester COMMENT: BMI 30.4, HgBA1C normal (7) H/O miscarriage, currently : COMMENT: January 2024 (8) Supervision of high-risk : QUALIFIERS: Trimester: third trimester Qualified Code(s): O09.93 - Supervision of high risk , unspecified, third trimester COMMENT: PRR , ITZEL 04/06/25, indie boy : Otoniel (9) : QUALIFIERS: Weeks of gestation: 38 weeks Qualified Code(s): Z3A.38 - 38 weeks gestation of COMMENT: Neg GBS. NIPT low risk, Choroid plexus cysts. (10) delivery delivered: COMMENT: ltcs sm 39 breech boy sumaya Maternal Data Information ITZEL Calculator Estimated Delivery Date Method Current WG Current Estimate 04/06/25 Ultrasound #1 39w 0d Other Estimates 03/30/25 LMP (Certain) 40w 0d Final ITZEL Source: LMP Operative Report (OB) Details Procedure Type: low transverse Date of Procedure: 03/30/25 Procedure Start Time: 07:35 Pre-Operative Diagnosis: Other Other Pre-Operative diagnosis: see a/p comments Post-Operative Diagnosis: Same as Pre-operative diagnosis Classification: Scheduled Type of Anesthesia: Spinal Special Medications: none Antibiotic Given: Ancef 2 grams IV x1 Drain: Alcaraz to straight drain Estimated Blood Loss: 600 Fluids Replaced: crystalloid Findings Description of surgery: Spinal anesthesia was placed without difficulty. Alcaraz catheter was placed. The patient was placed in the dorsal supine position with leftward tilt. Patient was prepped and draped in the normal sterile fashion. Pfannenstiel skinincision was made with the scalpel and carried through to the underlying layer of fascia with the scalpel. Fascia was nicked in the midline and the incision extended laterally. The rectus bellies were dissected off superiorly and inferiorly with out complication both sharply and bluntly. The peritoneum was entered digitally. The incision was stretched and a low transverse uterine incision was made with the scalpel. The buttox was delivered atraumatically andthe rightand left legs were swept anteriorly and delivered, followed by the body and the arms which were swept anteriorly and delivered. Gentle traction was placed on the mentum to flex the head which was delivered without complication. The cord was clamped and cut and the was handed off to awaiting nurse. The placenta was delivered spontaneously immediately following and was noted to be intact andhave a three-vessel cord. The uterus was exteriorized cleared of all clots and debris, and the incision was closed in a single layer closure using #1 Monocryl. The ovaries and fallopian tubes were noted to be within normal limits. The uterus was returned to the maternal abdomen and gutters were cleared of all clots and debris. The peritoneum was closed with 3-0 Monocryl in a running fashion. Gloves were changed prior to fascial closure. Fascia was closed with 0 PDS in a running fashion. Subcutaneous tissue was copiously irrigated and the skin was closed with 3-0 Monocryl in a subcuticular fashion. Mepilex dressing was applied without complication. Patient was taken to recovery in stable cond ition. It was discussed with the patient that based on the clinical information obtained during this encounter, combined with her history, at this time I would recommend vaginal or for future deliveries if further pregnancies are desired. Surgical findings: nl uterus tubes ovaries Presentation: Vertex Amniotic Membrane Rupture Type: Artificial Amniotic Fluid Description: Clear Specimen collected: Yes Description of specimen(s) removed: placenta and baby Cord Vessel Description: 3 Vessels Delayed Cord Clamping: Yes Stereotyper pin maker: Yes Glove Cleaner: Sally Davidson Tasks completed by assistant administrator: Opening & closing, Retracting and Other (assisting in deliveryof the ) Additional store administrative assistant?: No Complications Complications: No Admit VTE Documentation VTE Present on Admission: No VTE Mechan Device Prophylaxis: SCD's Procedures Urinary/Genital 52xxx-59xxx: 12601 Delivery global pkg 03/30/25 0840 Cosigner Signature (if applicable): CC: COURT ASSISTANTLexis Flower; Dr. Radha Peters MD~ Signed [facility]07-21-2025 History and physical note [facility] Medical Records Department [address] [place] [id number] H&P Exam - ASSOCIATE ACCOUNTANT 03/30/25 0641 MR#: [id number] Acct: [id number] Name: MADDIE TORRE Rep #:[id number] : 2000 24 From: Radha patricia MD PCP: AMEE Quinteros Status:ADM IN Location: [id number] HPI - General General Date of Admission: 03/30/25 HPI Narrative MADDIE TORRE, is a 24 F who presents for primary low transverse secondary to breech presentation. she has had an otherwise uncomplicated . Maternal Data Information ITZEL Calculator Estimated Delivery Date Method Current WG Current Estimate 04/06/25 Ultrasound #1 39w 0d Other Estimates 03/30/25 LMP (Certain) 40w 0d PFSH PFS Medical History (Updated 03/30/25 @ 05:52 by Maddie Florentino) Chlamydia infection affecting Spontaneous Home Medications ?Medication ?Instructions ?Recorded ?Last Taken ?Type ferrous sulfate 137 mg (45 mg 137 mg PO QDAY anemia 03/29/25 History iron) tablet,extended release (Slow Fe) famotidine 20 mg tablet (Pepcid AC) 20 mg PO BID heart burn 02/18/25 03/29/25 History PNV 153-FA 400 mcg-om3 35 mg-dha 1 tab PO DAILY pregna ncy 02/19/25 03/29/25 History 25 mg-epa 5 mg-fish oil chew tablet ( Gummies) Allergy/AdvReac Type Severity Reaction Status Date / Time No Known Allergies Allergy Verified 03/30/25 05:33 Family History Grandmother Cancer Lung-Maternal Aunt Cancer Pancreatic- Maternal Surgical History (Updated 03/30/25 @ 05:52 by Maddie Florentino) History of surgery Social History adopted: No household members: spouse current occupational status: 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 Date Name GA/Weeks Outcome Route Bth Weight Infant Gen Labor Lgth Anesthesia Del Locatn Provider FOB 01/09/24 5 spontaneous Visit Details Expected Delivery Route/Plan LTCS Labor Preferences- CB/BF [...] OB Flowsheet Initial Weight: 166 lb Date -?-?-?-?-?-?-?-?-?-?-?-?- EGA [...] or dec fm. no complaints. needs f/u RUBBER OFF. ultrasound ordered. 01/06/25 -?-?-?-?-?-?-?-?-?-?-?-?- 27w 1d 188 [...] oz (+27 lb 6 oz) 108/80 Negative -?-?-?-?-?-?-?--?-?-?-?-?- Negative 142 32 -?-?-?-?-?-?-?-?-?-?-?-?- MH-No Vb, LOF. [...] need gcc next visit, wasn't done today 03/19/25 -?-?-?-?-?-?-?-?-?-?-?-?- 37w 3d 201 lb (+35 lb) 117/79 Negative -?-?-?-?-?-?-?-?-?-?-?-?- Negative 147 37 Breech 1 -?-?-?-?-?-?-?-?-?-?-?-?- 0 -4 JV- no lof , vaginal bleeding, or dec fm. JV- no lof, vaginal bleeding , or dec fm. gc/ct collected. 03/25/25 -?-?-?-?-?-?-?-?-?-?-?-?- 38w 2d 203 lb (+37 lb) 114/79 Negative -?-?-?-?-?-?-?-?-?-?-?-?- Negative 145 39 Breech -?-?-?-?-?-?-?-?-?-?-?-?- SM- no vb lof go od f,m no regular ctx NST FHR Rate Baby A Baseline: 130 Variability:: Moderate Accelerations:: 15 x 15 Decelerations:: None NST Reactive:: Yes FHR Category:: Category I Uterine Activity:: irregular ROS Constitutional Constitutional: Reports systems reviewed and no addt'l complaints, except as documented Eyes Eyes: Denies change in vision ENT HEENT: Reports systems reviewed and no addt'l complaints, except as documented; Denies headache(s) Cardiovascular Cardiovascular: Reports systems reviewed and no addt'l complaints, except as documented; Denies chest pain or dyspnea Respiratory/Chest Respiratory/Chest: Reports systems reviewed and no addt'l complaints, except as documented Gastrointestinal Gastrointestinal: Reports systems reviewed and no addt'l complaints, except as documented; Denies abdominal pain Genitourinary Genitourinary: Reports systems reviewed and no addt'l complaints, except as documented, contractions Details: present (irregular) and movement Details: present; Denies dysuria or genital lesions Musculoskeletal Musculoskeletal: Reports systems reviewed and no addt'l complaints, except as documented Neurologic Neurologic: Reports systems reviewed and no addt'l complaints, except as documented Endocrine Endocrinology: Reports systems reviewed and no addt'l complaints, except as documented Vital Signs Vital Signs Vital Signs: 03/30/25 05:27 03/30/25 05:27 03/30/25 05:27 Temperature Temperature Source Pulse Rate 108 H Respiratory Rate Blood Pressure 117/73 Blood Pressure Mean BP Systolic 117 BP Diastolic 73 Blood Pressure Source Blood Pressure Position Blood Pressure Location Pulse Ox 97 Oxygen Delivery Method 03/30/25 05:41 03/30/25 05:41 03/30/25 05:41 Temperature Temperature Source Temporal Pulse Rate 107 H Respiratory Rate Blood Pressure 117/73 Blood Pressure Mean BP Systolic 117 BP Diastolic 73 Blood Pressure Source Blood Pressure Position Blood Pressure Location Pulse Ox Oxygen Delivery Method 03/30/25 05:41 03/30/25 05:41 03/30/25 05:41 Temperature 97.1 F L Temperature Source Pulse Rate Respiratory Rate 16 Blood Pressure Blood Pressure Mean BP Systolic BP Diastolic Blood Pressure Source Blood Pressure Position Blood Pressure Location Pulse Ox 97 Oxygen Delivery Method 03/30/25 05:54 Temperature 97.1 F L Temperature Source Temporal Pulse Rate 107 H Respiratory Rate 16 Blood Pressure 117/73 Blood Pressure Mean 87 BP Systolic BP Diastolic Blood Pressure Source Monitor Blood Pressure Position Sitting Blood Pressure Location Right Arm Pulse Ox 97 Oxygen Delivery Method Room Air Weight Weight: 205 lb Body Mass Index (BMI) 37.5 Physical Exam Const alert, oriented x3, no apparent distress and healthy appearing HEENT normocephalic and moist oral mucous membranes Head and Scalp: atraumatic Neck full ROM, no lymphadenopathy, supple and thyroid normal General: trachea midline Lymph Lymphatic: no lymphadenopathy noted Chest inspection of chest normal Resp normal respiratory effort Cardio regular rate GI soft to palpation and non-tender GI Narrative: gravid Inspection: gravid external exam normal Manual OB Exam: estimated gestational size appropriate, presentation breech, dilated, effacedand station Extremity normal to inspection General Extremity: Negative for edema Skin no rashes or lesions noted Neuro no focal motor deficits and deep tendon reflexes 2+ bilaterally Motor Exam: strength 5/5 throughout and clonus absent Psych mental status grossly normal Labs Labs Labs: Blood Type O POSITIVE Antibody Screen NEGATIVE Hct 35.8 % (37-47) L Hgb 11.8 g/dL (12.0-15.0) L Obstetrics Ultrasound Syphilis Total Ab Nonreactive (Nonreactive) Rubella IgG Antibody Reactive (Nonreactive) Hep Bs Antigen Non-Reactive (Nonreactive) Hepatitis C Antibody Non-Reactive (Nonreactive) Chlamydia DNA (SHAYLEE) Negative (Negative) N.gonorrhoeae DNA (SHAYLEE) Negative (Negative) HIV 1&2 Antibody Nonreactive (Nonreactive) Glucose 1 Hr 50 gm 126 mg/dL (70-140) Assessment & Plan (1) Breech presentation: COMMENT: desires primary c/s. discussed and declines ECV, C/S 03/30 @ 0715. (2) Anemia in preg-unspec: QUALIFIERS: Trimester: third trimester Qualified Code(s): O99.013 - Anemia complicating , third trimester (3) Chlamydia infection during : COMMENT: 08/26/24 azithromycin sent; 10/22/24 rpt culture:negative repeat culture at 36 weeks with the GBS (4) Family history of hemochromatosis: COMMENT: Pt tested and is NEGATIVE (5) Vegetarian diet: COMMENT: x8 years - recently started eating some meat since (6) Obesity affecting : QUALIFIERS: Obesity type affecting : unspecified obesity Trimester: second trimester Qualified Code(s): O99.212 - Obesity complicating , second trimester COMMENT: BMI 30.4, HgBA1C normal (7) H/O miscarriage, currently : COMMENT: January 2024 (8) Supervision of high-risk : QUALIFIERS: Trimester: third trimester Qualified Code(s): O09.93 - Supervision of high risk , unspecified, third trimester COMMENT: PRR , ITZEL 04/06/25, indie boy : Otoniel (9) : QUALIFIERS: Weeks of gestation: 38 weeks Qualified Code(s): Z3A.38 - 38 weeks gestation of COMMENT: Neg GBS. NIPT low risk, Choroid plexus cysts. PLAN: Plan plan primary low transverse section 03/30/25 0719 Cosigner Signature (if applicable): CC: AMEE Folwer; Dr. Radha Peters MD~ Signed [facility]07-02-2025 [facility] [address], [address] [place] [address] OFFICE VISIT Date of Service: 03/11/25 MR#: [id number] Acct: [id number] Name: MADDIE TORRE Rep #: [id number] : 2000 Provider: Dr. 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 No FM yet. Anatomy US 3/. Urine GCC today 11/18/24 -?-?-?-?-?-?-?-?-?-?-?-?- 20w 1d 177 lb 2 oz (+11 lb 2 oz) 114/72 Negative -?-?-?-?-?-?-?-?-?-?-?-?- Negative 147 -?--?-?-?-?-?-?-?-?-?-?-?- MH-No VB. Nausea improved. Good FM. 12/18/24 -?-?-?-?-?-?-?-?-?-?-?-?- 24w 3d 181 lb 6 oz (+15 lb 6 oz) 112/77 Negative -?-?-?-?-?-?-?-?-?-?-?-?- Negative 145 -?-?-?-?-?-?-?-?-?-?-?-?- JV- no lof, vagi nal bleeding, or dec fm. no complaints. needs f/u RUBBER OFF. ultrasound ordered. 01/06/25 -?-?-?-?-?-?-?-?-?-?-?-?- 27w 1d 188 [...] and Symptoms of Preeclampsia, Feeding No , [place] Education and Family Medical Leave or Disability [...] POC Urinalysis 2 Dip (Clinic) Today 03/11/25 Ivana schultz MD> Date _ Radha Peters MD Cosigner Signature: Date (if applicable) CC: ~ [facility]07-02-2025 Progress note Author Radha Peters [facility] Note Date/Time March 11, 2025 4:24p m [facility] [address] [place] [address], [address] [place] [address] OFFICE VISIT Date of Service: 03/11/25 MR#: [id number] Acct: [id number] Name: MADDIE TORRE Rep #: [id number] : 2000 Provider: Dr. 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 Nausea improved. Good FM. 12/18/24 -?-?-?-?-?-?-?-?-?-?-?-?- 24w 3d 181 lb 6 oz (+15 lb 6 oz) 112/77 Negative -?-?-?-?-?-?-?-?-?-?-?-?- Negative 145 -?-?-?-?-?-?-?-?-?-?-?-?- JV- no lof, vagi nal bleeding, or dec fm. no complaints. needs f/u RUBBER OFF. ultrasound ordered. 01/06/25 -?-?-?-?-?-?-?-?-?-?-?-?- 27w 1d 188 [...] Symptoms of Preeclampsia, Infant Feeding No , Education and Family Medical [...] POC Urinalysis 2 Dip (Clinic) Today 03/11/25 1624 <Electronically signed by Radha schultz MD> Date _ Radha Peters MD Cosigner Signature: Date (if applicable) CC: ~ [facility] Work Phone: 1(640) 840-385306-12-2025 Radiology Diagnostic study note [facility] Imaging Services [address] [place] [address] [id number] OB Limited (No Biometrics) MR#: [id number] Acct: [id number] Name: MADDIE TORRE Rep #: [id number] : 2000 F 24 From: Sanjiv Montero MD PCP: SERGE QuinterosC Status: REG CLI Study:OB Limited (No Biometrics) Date of Exam : 02/19/25 Exam# [id number] Ordering Dr: Elle Poe CNM PROCEDURE: OB [...] evidence of placenta previa. [facility] CC: AMAIRANI Poe; AMEE Flower ~ Human Resource Manager: Signed [facility]06-11-2025 Progress [facility] [address], [address] [place] [address] OFFICE VISIT Date of Service: 02/18/25 MR#: [id number] Acct: [id number] Name: MADDIE TORRE Rep #: [id number] : 2000 Provider: Dr. 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 no complaints. needs f/u RUBBER OFF. ultrasound ordered. 01/06/25 -?-?-?-?-?-?-?-?-?-?-?-?- 27w 1d 188 [...] Symptoms of Preeclampsia, Infant Feeding No , [place] Education and Family Medical Leave or Disability [...] restriction: Status: Acute Comment: growth US 7%- [facility] referral for fu growth scan. due [...] Cosigner Signature: Date (if applicable) CC: ~ [facility]06-11-2025 Progress note Author María Elena Hodge [facility] Note Date/Time February 18, 2025 2:47 pm [facility] [address], [address] [place] [address] OFFICE VISIT Date of Service: 02/18/25 MR#: [id number] Acct: [id number] Name: MADDIE TORRE Rep #: [id number] : 2000 Provider: Dr. 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 no complaints. needs f/u RUBBER OFF. ultrasound ordered. 01/06/25 -?-?-?-?-?-?-?-?-?-?-?-?- 27w 1d 188 [...] Symptoms of Preeclampsia, Infant Feeding No , Education and Family Medical [...] restriction: Status: Acute Comment: growth US 7%- [facility] referral for fu growth scan. due [...] POC Urinalysis 2 Dip (Clinic) Today 02/18/25 0167 <Electronically signed by María Elena Arellano DO> Date _ María Elena Solomon DO Cosigner Signature: Date (if applicable) CC: ~ [facility] Work Phone: 1(224) 623-194505-27-2025 Progress note Author Chioma Springer [facility] Note Date/Time February 03, 2025 1:59p [facility] [address], [address] [place] [address] OFFICE VISIT Date of Service: 02/03/25 MR#: [id number] Acct: [id number] Name: MADDIE TORRE Rep #: [id number] : 2000 Provider: AMEE Springer Age/Sex: 24/F Location: [facility] Status: Signed Intake Vital Signs 09/23/24 13:32 01/20/25 14:36 02/03/25 13:42 Height 5 ft 2 in 5 ft 2 in 5 ft 2 in Weight: 190 lb 193 lb 6 oz BMI 34.7 35.4 BP 115/75 108/80 Intake Visit Reasons: 32 wk ob Chief Complaint: 32 Week OB Creative Project Manager Required: No Is patient in pain?: No [...] 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 no complaints. needs f/u RUBBER OFF. ultrasound ordered. 01/06/25 -?-?-?-?-?-?-?-?-?-?-?-?- 27w 1d 188 [...] Symptoms of Preeclampsia, Infant Feeding No , [place] Education and Family Medical Leave or Disability [...] restriction: Status: Acute Comment: growth US 7%- [facility] referral for fu growth scan. due [...] Continue routine care and follow up. 02/03/25 6026 <Electronically signed by Chioma salinas COURT ASSISTANT COURT ASSISTANT-C> Date _ Chioma Springer NP COURT ASSISTANT-C Cosigner Signature: Date (if applicable) CC: ~ [facility] Work Phone: 1(415) 603-983505-27-2025 Progress [facility] [address] [place] [address], [address] [place] [address] OFFICE VISIT Date of Service: 02/03/25 MR#: [id number] Acct: [id number] Name: MADDIE TORRE Rep #: [id number] : 2000 Provider: AMEE Springer Age/Sex: 24/F Location: [facility] Status: Signed Intake Vital Signs 09/23/24 13:32 01/20/25 14:36 02/03/25 13:42 Height 5 ft 2 in 5 ft 2 in 5 ft 2 in Weight: 190 lb 193 lb 6 oz BMI 34.7 35.4 BP 115/75 108/80 Intake Visit Reasons: 32 wk ob Chief Complaint: 32 Week OB Creative Project Manager Required: No Is patient in pain?: No [...] 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 no complaints. needs f/u RUBBER OFF. ultrasound ordered. 01/06/25 -?-?-?-?-?-?-?-?-?-?-?-?- 27w 1d 188 [...] Symptoms of Preeclampsia, Infant Feeding No , [place] Education and Family Medical Leave or Disability [...] trimester Comment: PRR , ITZEL 04/06/25, : Otonile (2) : Status: Acute Qualifiers: Weeks of [...] restriction: Status: Acute Comment: growth US 7%- [facility] referral for fu growth scan. due [...] care and follow up. 02/03/[address] ASSISTANT-C> Date _ Chioma Springer COURT ASSISTANT COURT ASSISTANT-C Cosigner Signature: Date (if applicable) CC: ~ [facility]05-06-2025 [facility] CONSULTATION Referring Provider María Elena Croft DO [address] [facility] [address] [address] SUBJECTIVE Maddie Torre is a 24 y.o. [...] detailed ultrasound report. Laboratory Studies reviewed in [facility]. Medical Discussion: Ultrasound results reviewed. The limitation [...] evaluation, please provide us with follow-up for quality management nurse. The data contained in the above ultrasound report/consultation along with subsequent clinical management of the patient are the responsibility of the ordering provider. Sincerely, Stella Weaver MD, FACOG Maternal Medicine Assembler Installer General The total time for today's visit is [...] Nausea, Disp: , Rfl: [3] No [facility] Radiology Diagnostic study note [facility] Imaging Services [facility] [place] [address] OB Limited With Biometrics MR#: [id number] Acct: [id number] Name: MADDIE TORRE Rep #: [id number] : 2000 F 24 From: Emery Francis MD PCP: Minerva D Flower, COURT ASSISTANT-C Status: REG CLI Study:OB Limited With Biometrics Date of Exam : 01/08/25 Exam# [id number] Ordering Dr: María Elena Spain DO PROCEDURE: OB LIMITED WITH BIOMETRICS 01/08/2025 REASON FOR EXAM: FOLLOW UP RUBBER OFF TECHNIQUE: High resolution obstetric ultrasound performed using [...] WEIGHT PERCENTILE (24+ weeks): 7.2% Reading Location: [id number] CC: AMEE Flower; Dr. María Elena Solomon DO ~ Human Resource Manager: Signed [facility]04-10-2025 Evaluation note* Diagnosis Onset Date Resolution Status [...] 2025 2:17pm Vegetarian diet acute March 2:17pm [facility] Work Phone: 1([phone]) 495-676304-10-2025 Evaluation note* Diagnosis Onset Date Resolution Status [...] 2025 3:39pm Vegetarian diet acute March 3:39pm [facility] Work Phone: 1([phone]) 422-927304-10-2025 Evaluation note* Diagnosis Onset Date Resolution Status [...] 2025 3:39pm Vegetarian diet acute March 3:39pm Anemia in preg-unspec acute Mar 5:10am Breech presentation acute March 30, 2025 5:10am delivery delivered acute March 30, 2025 5:10am Chlamydia infection during acute March 30, 2025 5:10am Family history of hemochromatosis acute March 30, 2025 5:10am H/O miscarriage, currently acute March 30, 2025 5:10am Obesity affecting acute March 30, 2025 5:10am acute March 30 5:10am Supervision of high-risk acute March 30, 2025 5:10am Vegetarian diet acute March 5:10am [facility] Work Phone: [phone]) 893-128504-10-2025 Evaluation note* Diagnosis Onset Date Resolution Status [...] 2025 3:39pm Vegetarian diet acute March 3:39pm Anemia in preg-unspec acute Mar 5:10am Breech presentation acute March 30, 2025 5:10am delivery delivered acute March 30, 2025 5:10am Chlamydia infection during acute March 30, 2025 5:10am Family history of hemochromatosis acute March 30, 2025 5:10am H/O miscarriage, currently acute March 30, 2025 5:10am Obesity affecting acute March 30, 2025 5:10am acute March 30 5:10am Supervision of high-risk acute March 30, 2025 5:10am Vegetarian diet acute March 5:10am delivery delivered acute April 13, 2025 2:05pm UTI (urinary tract infection) acute April 13, 2025 2:05pm [facility] Work Phone: [phone]) 833-151403-11-2025 Evaluation note* Diagnosis Onset Date Resolution Status [...] 2025 6:50am Vegetarian diet acute February 6:50am [facility] Work Phone: 1([phone]) 570-458403-11-2025 Evaluation note* Diagnosis Onset Date Resolution Status [...] bleeding during acute February 20, 2025 8:52am [facility] Work Phone: [phone]) 328-240103-11-2025 Evaluation note* Diagnosis Onset Date Resolution Status [...] 2025 3:42pm Vegetarian diet acute February 3:42pm [facility] Work Phone: 1([phone]) 694-955303-11-2025 Evaluation note* Diagnosis Onset Date Resolution Status [...] Vegetarian diet acute March 11, 2025 3:44pm [facility] Work Phone: 1([phone]) [phone] Radiology Diagnostic study note [facility] Imaging Services [address] [place] [address] OB Anatomy w/ Transvaginal MR#: [id number] Acct: [id number] Name: MADDIE TORRE Rep #: [id number] : 2000 F 24 From: Sanjiv Montero MD PCP: SERGE QuinterosC Status: REG CLI Study:OB Anatomy w/ Transvaginal Date of Exam : 11/10/24 Exam# [id number] Ordering Dr: Radha Neal MD PROCEDURE: OB [...] cysts in both choroid plexus. Reading Location: [id number] CC: AMEE Flower; Dr. Radha Peters MD ~ Human Resource Manager: Signed [facility]02-12-2025 Evaluation note* Diagnosis Onset Date Resolution [...] 2025 1:38pm affected by growth restriction acute May 27th, 202 5 1:38pm Supervision of high-risk acute February 03, 2025 1 :38pm Vegetarian diet acute February 03, 2025 1:38pm [facility] Work Phone: [phone]) 899-961502-12-2025 Evaluation note* Diagnosis Onset Date Resolution Status Admit Date Chlamydia infection during acute October 22, 2 025 2:09pm Family history of hemochromatosis acute October 22, 2 025 2:09pm H/O miscarriage, currently acute October 22, 025 2:09pm Obesity affecting acute October 22, [...] 2025 2:01pm Vegetarian diet acute February 2:01pm [facility] Work Phone: 1(492) 543-509201-14-2025 Evaluation note* Diagnosis Onset Date Resolution Status [...] 2025 12:36pm Vegetarian diet acute December 12:36pm [facility] Work Phone: 1([phone]) 568-196701-14-2025 Evaluation note* Diagnosis Onset Date Resolution Status [...] Vegetarian diet acute January 20, 2025 2:23pm [facility] Work Phone: 1([phone]) 261-104012-02-2024 Evaluation note* Diagnosis Onset Date Resolution Status [...] Family history of hemochromatosis acute October 22, 025 2:09pm H/O miscarriage, currently acute October [...] 2024 3:36pm Vegetarian diet acute November 3:36pm [facility] Work Phone: 1(273) 178-976211-15-2024 History of Present illness Narrative* Minerva Flower, CUT PRESSMAN-ELDERLY CAREGIVER - 07/25/2024 4:20 PM EST Subjective Patient [...] CALL PER PATIENT REQUEST [facility] Work Phone: [phone]) 943-349710-23-2023 History of Present illness Narrative* KATHY Quinteros [...] Follow up as before [facility] Work Phone: Evaluation note* Diagnosis Pharyngitis, unspecified etiology- Primary documented in this encounter [facility] Work Phone: Evaluation note* Diagnosis Wellness examination- Primary Vitamin D deficiency Iron deficiency anemia, unspecified iron deficiency anemia type Amenorrhea Absence of menstruation documented in this encounter [facility] Work Phone: Evaluation note* Diagnosis Leukocytosis, unspecified type- Primary B12 deficiency Vitamin D deficiency documented in this encounter [facility] Work Phone: History of Present illness Narrative* KATHY Quinteros - 07/29/2024 2:20 PM EST Subjective Patient ID: Maddie Torre is a 24 y.o. female who presents for Follow-up (F/U LABS). HPI: Presents today for FU LABS. SHE IS RECENTLY . Appt with cholo 08/22/24. No new complaints B12- LOW. INJECTION [...] CALL PER PATIENT REQUEST [facility] Work Phone: Hospital Discharge instructions Additional Inst[facility] celestone injection [facility] Work Phone: Reason for referral (narrative)No reason for referral information availableWMetroHealth [facility] Work Phone: Summary Purpose Family History Relationship Condition Age at Onset Recorded Date/T elizabeth grandmother Malignant neoplasm Unknown aunt Malignant neoplasm Unknown Advance Directives Advance Directive Response Recorded Date/ Time Do you have a Healthcare Power of Drawer Waxer? No March 30, 2025 5:45am Chief Complaint and Reason for Visit Chief [...] January 06, 2025 12: 36pm FOLLOW UP [facility] January 08, 2025 4:10pm Reason for Visit Admit Date Chlamydia infection during Endy uary 2024 1:26pm Family history of hemochromatosis Sepandrewr y 2024 1:26pm H/O miscarriage, currently Daniel chico2024 1:26pm Obesity affecting September 1:26pm September 23, 2024 1 :26pm Supervision of high-risk Sepua 2024 1:26pm Vegetarian diet September 23, 2024 1 :26pm Threatened September 23, 2024 1 :26pm Chlamydia infection during Feb ruary 2024 2:09pm Family history of hemochromatosis ua 2024 2:09pm H/O miscarriage, currently 2024 2:09pm Obesity affecting October 2:09pm October 22, 2024 2:09pm Supervision of high-risk u 2024 2:09pm Vegetarian diet October 22, 2024 2:09pm Chlamydia infection during Mar 2024 3:36pm Family history of hemochromatosis November 18, 2024 3:36pm H/O miscarriage, currently [place] 2024 3:36pm Obesity affecting November 18, 2024 3:36pm November 18, 2024 3:3 6pm Supervision of high-risk November 18, 2024 3:36pm Vegetarian diet November 18, 2024 3:3 6pm Chlamydia infection during Apr 2024 1:58pm Choroid plexus cyst of fetus [...] January 06, 2025 12: 36pm FOLLOW UP [facility] January 08, 2025 4:10pm 30 wk ob January 20, 2025 2:23p m Reason for Visit Admit Date Chlamydia infection during Endy uary 2024 1:26pm Family history of hemochromatosis Sepuar y 2024 1:26pm H/O miscarriage, currently Daniel golden 2024 1:26pm Obesity affecting September 1:26pm September 23, 2024 1 :26pm Supervision of high-risk Sepua ry 2024 1:26pm Vegetarian diet September 23, [...] 3:3 6pm Chlamydia infection during Dec 1:58pm Choroid plexus cyst of fetus in [...] January 06, 2025 12: 36pm FOLLOW UP [facility] January 08, 2025 4:10pm 30 wk [...] December 18, 2024 1:58pm Chlamydia infection during Dec [place] 2024 12:36pm Family history of hemochromatosis [...] January 06, 2025 12: 36pm FOLLOW UP [facility] January 08, 2025 4:10pm 30 wk [...] January 06, 2025 12: 36pm FOLLOW UP [facility] January 08, 2025 4:10pm 30 wk [...] January 06, 2025 12: 36pm FOLLOW UP [facility] January 08, 2025 4:10pm 30 wk ob January 20, 2025 2:23p m 32 wk ob February 03, 2025 1:38p m 33wk ob February 18, 2025 2:01 pm R/O BLEEDING February 19, 2025 6:50 am R/O BLEEDING February 19, 2025 5:49 pm CELESTONE SHOT February 20, 2025 8:52 am Reason for Visit Admit Date Chlamydia infection during [facility] 2024 3:36pm Family history of hemochromatosis November 18, 2024 3:36pm H/O miscarriage, currently [facility] 2024 3:36pm Obesity affecting November 18, 2024 3:36pm November 18, 2024 3:3 6pm Supervision of high-risk November 18, 2024 3:36pm Vegetarian diet November 18, 2024 3:3 6pm Chlamydia infection during Apr ca 2024 1:58pm Family history of hemochromatosis December [...] January 06, 2025 12: 36pm FOLLOW UP [facility] January 08, 2025 4:10pm 30 wk [...] January 06, 2025 12: 36pm FOLLOW UP [facility] January 08, 2025 4:10pm 30 wk [...] January 06, 2025 12: 36pm FOLLOW UP [facility] January 08, 2025 4:10pm 30 wk [...] Visit Admit Date Chlamydia infection during Mar ch 2024 3:36pm [...] January 06, 2025 12: 36pm FOLLOW UP [facility] January 08, 2025 4:10pm 30 wk [...] December 18, 2024 1:58pm Chlamydia infection during Dec 12:36pm Family history of hemochromatosis January 06, [...] 06, 2025 3:42 pm Chlamydia infection during Rick 2024 3:42pm Family history of hemochromatosis February 092024 [...] January 06, 2025 12: 36pm FOLLOW UP [facility] January 08, 2025 4:10pm 30 wk [...] December 18, 2024 1:58pm Chlamydia infection during Dec [place] 2024 12:36pm Family history of hemochromatosis [...] 06, 2025 3:42 pm Chlamydia infection during Rick 2024 3:42pm Family history of hemochromatosis February 092024 [...] January 06, 2025 12: 36pm FOLLOW UP [facility] January 08, 2025 4:10pm 30 wk [...] 18, 2024 1:58pm Chlamydia infection during Apr 2024 12:36pm Family history of hemochromatosis January [...] 19, 2025 2:17pm Obesity affecting March 19, 2 025 2:17pm March 19, 2025 2:17 pm Supervision of high-risk March 19, 2025 2:17pm Vegetarian diet March 19, 2025 2:17 pm Anemia in preg-unspec March 25, 2025 3: 39pm Breech presentation March 25, 2025 3:39 pm Chlamydia infection during Mar 3:39pm Family history of hemochromatosis March 102024 3:39pm H/O miscarriage, currently March 25, 2025 3:39pm Obesity affecting March 25, 2 025 3:39pm March 25, 2025 3:39 pm Supervision of high-risk March 25, 2025 3:39pm Vegetarian diet March 25, 2025 3:39 pm Chief Complaint Admit Date 25 wk ob December 18, 2024 1:5 8pm INT LAB ORDERS January 06, 2025 11: 53am 28 wk ob/glucose January 06, 2025 12: 36pm FOLLOW UP [facility] January 08, 2025 4:10pm 30 wk [...] 38wk ob March 25, 2025 3:39 pm PRIMARY March 30, 2025 5:10 am SCHEDULED March 30, 2025 6:41 am PRIMARY March 31, 2025 7:23 am PRIMARY April 01, 2025 6:09 am Reason for Visit Admit Date Chlamydia [...] 19, 2025 6:50am Obesity affecting February 19 2 025 6:50am February 19, 2025 6:50 [...] 25, 2025 3:39pm Obesity affecting March 25, 2 025 3:39pm March 25, 2025 3:39 pm Supervision of high-risk March 25, 2025 3:39pm Vegetarian diet March 25, 2025 3:39 pm Anemia in preg-unspec March 30, 2025 5: 10am Breech presentation March 30, 2025 5:10 am delivery delivered March 30, 2 025 5:10am Chlamydia infection during Mar 5:10am Family history of hemochromatosis March 112024 5:10am H/O miscarriage, currently March 30, 2025 5:10am Obesity affecting March 30, 2 025 5:10am March 30, 2025 5:10 am Supervision of high-risk March 30, 2025 5:10am Vegetarian diet March 30, 2025 5:10 am Chief Complaint Admit Date 25 wk ob December 18, 2024 1:5 8pm INT LAB ORDERS January 06, 2025 11: 53am 28 wk ob/glucose January 06, 2025 12: 36pm FOLLOW UP [facility] January 08, 2025 4:10pm 30 wk [...] 38wk ob March 25, 2025 3:39 pm PRIMARY March 30, 2025 5:10 am SCHEDULED March 30, 2025 6:41 am PRIMARY March 31, 2025 7:23 am PRIMARY April 01, 2025 6:09 am 2wk incision check April 13, 2025 2:0 5pm Reason for Visit Admit Date Chlamydia infection during Dec 2025 1:58pm Family history of hemochromatosis December 18, [...] 19, 2025 2:17pm Obesity affecting March 19, 2 025 2:17pm March 19, 2025 2:17 pm Supervision of high-risk March 19, 2025 2:17pm Vegetarian diet March 19, 2025 2:17 pm Anemia in preg-unspec March 25, 2025 3: 39pm Breech presentation March 25, 2025 3:39 pm Chlamydia infection during Mar 3:39pm Family history of hemochromatosis March 102024 3:39pm H/O miscarriage, currently March 25, 2025 3:39pm Obesity affecting March 25, 2 025 3:39pm March 25, 2025 3:39 pm Supervision of high-risk March 25, 2025 3:39pm Vegetarian diet March 25, 2025 3:39 pm Anemia in preg-unspec March 30, 2025 5: 10am Breech presentation March 30, 2025 5:10 am delivery delivered March 30, 025 5:10am Chlamydia infection during Mar 5:10am Family history of hemochromatosis March 112024 5:10am H/O miscarriage, currently March 30, 2025 5:10am Obesity affecting March 30, 025 5:10am March 30, 2025 5:10 am Supervision of high-risk March 30, 2025 5:10am Vegetarian diet March 30, 2025 5:10 am delivery delivered April 13, 2025 2:05pm UTI (urinary tract infection) April 2:05pm Additional Source Comments <item> Privacy Markings (unrecogniz ed section and content) Section Author: Kelsi Burrell PROHIBITION ON REDISCLOSURE OF CONFIDENTIAL INFORMATION This notice accompanies a disclosure of information concerning a client made to you with the consent of such client. INFORMATION SOURCE (unrecogn ized section and content) DATE CREATED AUTHOR 12/01/2021 [facility] DATE CREATED AUTHOR AUTHOR'S ORGANIZ ATION 08/05/2024 [facility] DATE CREATED AUTHOR AUTHOR'S ORGANIZ ATION 09/22/2024 [facility] DATE CREATED AUTHOR AUTHOR'S ORGANIZ ATION 01/16/2025 [facility] DATE CREATED AUTHOR AUTHOR'S ORGANIZ ATION 04/10/2025 [facility] Reason for Visit (unrecogniz ed section and content) Reason Comments Sore Throat Associated with feve r. Pt states she went to urgent care 07/02/23. No medication was prescribed.Pt state she was diagnosed with uri. Pt tested negative for covid 07/05/23. She states she is not feeling any better Reason Comments Annual Exam ANNUAL WELLNESS VISI T, PT IS , SHE JUST FOUND OUT THIS MORNING Reason Comments Follow-up F/U LABS Care Teams (unrecognized sec tion and content) Filer And Sander Relationship Specialty Start Date End Date Minerva Flower, CUT PRESSMAN-ELDERLY CAREGIVER [address] [place] [address] PCP - General Internal Medicine 05/23/23 Filer And Sander Relationship Specialty Start Date End Date Minerva Flower, CUT PRESSMAN-ELDERLY CAREGIVER [address] [place] [address] PCP - General Internal Medicine 05/23/23 Filer And Sander Relationship Specialty Start Date End Date Minerva Flower, CUT PRESSMAN-ELDERLY CAREGIVER [address] [place] [address] PCP - General Internal Medicine 05/23/23 Team Status: Active Member Role Status Dates Minerva Flower COURT ASSISTANT-C Primary Care Provider Active Team Status: Inactive Member Role Status Dates Minerva Flower COURT ASSISTANT-C Primary Care Provider Active Start: August 11, 2024 End: August 11, 2024 Minerva Flower NP-C Referring Provider Active St art: August 11, 2024 End: August 11, 2024 Dr. Radha Peters MD Attending Provider Active Start: August 11, 2024 End: August 11, 2024 Team Status: Inactive Member Role Status Dates Minerva Flower NP-C Primary Care Provider Active Start: August 11, 2024 End: August 11, 2024 Dr. Radha Peters MD Attending Provider Active Start: August 11, 2024 End: August 11, 2024 Dr. Radha Peters MD Referring Provider Active Start: August 11, 2024 End: August 11, 2024 Team Status: Inactive Member Role Status Dates Minerva Flower NP-C Primary Care Provider Active Start: August 13, 2024 End: August 13, 2024 Minerva Flower NP-C Referring Provider Active St art: August 13, 2024 End: August 13, 2024 Dr. Radha Peters MD Attending Provider Active Start: August 13, 2024 End: August 13, 2024 Team Status: Active Member Role Status Dates Minerva Flower , COURT ASSISTANT-C Primary Care Provider Active Start: August 15, 2024 Faith Wall RN Attending Provider Active St art: August 15, 2024 Team Status: Inactive Member Role Status Dates Minerva Flower , COURT ASSISTANT-C Primary Care Provider Active Start: August 22, 2024 End: August 22, 2024 Minerva Flower , COURT ASSISTANT-C Referring Provider Active St art: August 22, 2024 End: August 22, 2024 Elle Poe CNM Attending Provider Active S tart: August 22, 2024 End: August 22, 2024 Team Status: Inactive Member Role Status Dates Minerva Flower , COURT ASSISTANT-C Primary Care Provider Active Start: August 22, 2024 End: August 22, 2024 Dr. Radha Peters MD Attending Provider Active Start: August 22, 2024 End: August 22, 2024 Dr. Radha Peters MD Referring Provider Active Start: August 22, 2024 End: August 22, 2024 Team Status: Inactive Member Role Status Dates Minerva Flower , COURT ASSISTANT-C Primary Care Provider Active Start: September 15, 2024 End: September 15, 2024 Dr. Radha Peters MD Attending Provider Active Start: September 15, 2024 End: September 15, 2024 Dr. Radha Peters MD Referring Provider Active Start: September 15, 2024 End: September 15, 2024 Team Status: Inactive Member Role Status Dates Minerva Flower , COURT ASSISTANT-C Primary Care Provider Active Start: September 23, 2024 End: September 23, 2024 Minerva Flower , COURT ASSISTANT-C Referring Provider Active St art: September 23, 2024 End: September 23, 2024 Dr. Radha Peters MD Attending Provider Active Start: September 23, 2024 End: September 23, 2024 Team Status: Inactive Member Role Status Dates Minerva Flower , COURT ASSISTANT-C Primary Care Provider Active Start: October 22, 2024 End: October 22, 2024 Minerva Flower , COURT ASSISTANT-C Referring Provider Active St art: October 22, 2024 End: October 22, 2024 Chioma Springer NP, COURT ASSISTANT-C Attending Provider Active Start: October 22, 2024 End: October 22, 2024 Team Status: Inactive Member Role Status Dates Minerva Flower COURT ASSISTANT-C Primary Care Provider Active Start: October 22, 2024 End: October 22, 2024 Chioma Springer NP, COURT ASSISTANT-C Attending Provider Active Start: October 22, 2024 End: October 22, 2024 Chioma Springer NP, COURT ASSISTANT-C Referring Provider Active Start: October 22, 2024 End: October 22, 2024 Team Status: Inactive Member Role Status Dates Minerva Folwer COURT ASSISTANT-C Primary Care Provider Active Start: November 10, 2024 End: November 10, 2024 Dr. Radha Peters MD Attending Provider Active Start: November 10, 2024 End: November 10, 2024 Dr. Radha Peters MD Referring Provider Active Start: November 10, 2024 End: November 10, 2024 Team Status: Inactive Member Role Status Dates Minerva Flower COURT ASSISTANT-C Primary Care Provider Active Start: November 18, 2024 End: November 18, [address] ASSISTANT-C Referring Provider Active St art: November 18, 2024 End: November 18, 2024 Chioma Springer NP, COURT ASSISTANT-C Attending Provider Active Start: November 18, 2024 End: November 18, 2024 Team Status: Inactive Member Role Status Dates Minerva Flower COURT ASSISTANT-C Primary Care Provider Active Start: December 18, 2024 End: December 18, [address] ASSISTANT-C Referring Provider Active St art: December 18, 2024 End: December 18, 2024 Dr. María Elena Solomon DO Attending Provider Activ e Start: December 18, 2024 End: December 18, 2024 Team Status: Inactive Member Role Status Dates Minerva Flower COURT ASSISTANT-C Primary Care Provider Active Start: January 06, 2025 End: January 06, 2025 Dr. María Elena Solomon DO Attending Provider Activ e Start: January 06, 2025 End: January 06, 2025 Dr. María Elena Solomon DO Referring Provider Activ e Start: January 06, 2025 End: January 06, 2025 Team Status: Inactive Member Role Status Dates Minerva Flower COURT ASSISTANT-C Primary Care Provider Active Start: January 06, 2025 End: January 06, 2025 Minerva D Flower , COURT ASSISTANT-C Referring Provider Active St art: January 06, 2025 End: January 06, 2025 Elle Poe CNM Attending Provider Active S tart: January 06, 2025 End: January 06, 2025 Team Status: Active Member Role Status Dates Minerva Flower , COURT ASSISTANT-C Primary Care Provider Active Start: January 08, 2025 Dr. María Elena Solomon , DO Attending Provider Activ e Start: January 08, 2025 Dr. María Elena Solomon , DO Referring Provider Activ e Start: January 08, 2025 Team Status: Inactive Member Role Status Dates Minerva Flower , COURT ASSISTANT-C Primary Care Provider Active Start: January 08, 2025 End: January 08, 2025 Dr. María Elena Solomon , DO Attending Provider Activ e Start: January 08, 2025 End: January 08, 2025 Dr. María Elena Solomon , DO Referring Provider Activ e Start: January 08, 2025 End: January 08, 2025 Team Status: Inactive Member Role Status Dates Minerva Flower , COURT ASSISTANT-C Primary Care Provider Active Start: January 20, 2025 End: January 20, [address] ASSISTANT-C Referring Provider Active St art: January 20, 2025 End: January 20, 2025 Amber Dyer CNM Attending Provider Active Start: January 20, 2025 End: January 20, 2025 Team Status: Inactive Member Role Status Dates Minerva Flower , COURT ASSISTANT-C Primary Care Provider Active Start: February 03, 2025 End: February 03, [address] ASSISTANT-C Referring Provider Active St art: February 03, 2025 End: February 03, 2025 Chioma Springer NP, COURT ASSISTANT-C Attending Provider Active Start: February 03, 2025 End: February 03, 2025 Team Status: Active Member Role Status Dates Minerva Flower COURT ASSISTANT-C Primary Care Provider Active Start: February 03, 2025 Chioma Springer NP, COURT ASSISTANT-C Attending Provider Active Start: February 03, 2025 Team Status: Inactive Member Role Status Dates Minerva Flower , COURT ASSISTANT-C Primary Care Provider Active Start: February 03, 2025 End: February 03, 2025 Chioma Springer NP, COURT ASSISTANT-C Attending Provider Active Start: February 03, 2025 End: February 03, 2025 Team Status: Inactive Member Role Status Dates Minerva Flower COURT ASSISTANT-C Primary Care Provider Active Start: February 18, 2025 End: February 18, [address] ASSISTANT-C Referring Provider Active St art: February 18, 2025 End: February 18, 2025 Dr. María Elena Solomon , DO Attending Provider Activ e Start: February 18, 2025 End: February 18, 2025 Team Status: Active Member Role Status Dates Minerva Flower COURT ASSISTANT-C Primary Care Provider Active Start: February 18, 2025 Dr. María Elena Solomon , Attending Provider Activ e Start: February 18, 2025 Team Status: Inactive Member Role Status Dates Minerva Flower COURT ASSISTANT-C Primary Care Provider Active Start: February 19, 2025 End: February 19, 2025 Dr. María Elena Solomon , Attending Provider Activ e Start: February 19, 2025 End: February 19, 2025 Dr. María Elena Solomon , Referring Provider Activ e Start: February 19, 2025 End: February 19, 2025 Team Status: Active Member Role Status Dates Minerva Flower COURT ASSISTANT-C Primary Care Provider Active Start: February 19, 2025 Dr. María Elena Solomon DO Referring Provider Activ e Start: February 19, 2025 Dr. María Elena Solomon , Other Provider Active Start: February 19, 2025 Elle Poe CNM Attending Provider Active S tart: February 19, 2025 Team Status: Inactive Member Role Status Dates Minerva Flower COURT ASSISTANT-C Primary Care Provider Active Start: February 20, 2025 End: February 20, 2025 Amber Dyer CNM Attending Provider Active Start: February 20, 2025 End: February 20, 2025 Amber Dyer CNM Referring Provider Active Start: February 20, 2025 End: February 20, 2025 Team Status: Inactive Member Role Status Dates Minerva Flower COURT ASSISTANT-C Primary Care Provider Active Start: February 18, 2025 End: February 18, 2025 Dr. María Elena Solomon , Attending Provider Activ e Start: February 18, 2025 End: February 18, 2025 Team Status: Active Member Role Status Dates Minerva D Flower , COURT ASSISTANT-C Primary Care Provider Active Start: February 21, 2025 Amber Dyer CNM Attending Provider Active Start: February 21, 2025 Amber Dyer CNM Referring Provider Active Start: February 21, 2025 Amber Dyer CNM Other Provider Active Star t: February 21, 2025 Team Status: Inactive Member Role Status Dates Minerva Flowre , COURT ASSISTANT-C Primary Care Provider Active Start: February 26, 2025 End: February 26, 2025 Dr. María Elena Solomon DO Attending Provider Activ e Start: February 26, 2025 End: February 26, 2025 Dr. María Elena Solomon DO Referring Provider Activ e Start: February 26, 2025 End: February 26, 2025 Team Status: Active Member Role/Relationship Status Dates Minerva Flower , COURT ASSISTANT-C Primary Care Provider Active Team Status: Inactive Member Role/Relationship Status Dates Minerva Flower , COURT ASSISTANT-C Primary Care Provider Active Start: November 10, 2024 End: November 10, 2024 Dr. Radha Peters MD Attending Provider Active Start: November 10, 2024 End: November 10, 2024 Dr. Radha Peters MD Referring Provider Active Start: November 10, 2024 End: November 10, 2024 Team Status: Inactive Member Role/Relationship Status Dates Minerva Flower , COURT ASSISTANT-C Primary Care Provider Active Start: November 18, 2024 End: November 18, 2024 Minerva Flower , COURT ASSISTANT-C Referring Provider Active St art: November 18, 2024 End: November 18, 2024 Chioma Springer NP, COURT ASSISTANT-C Attending Provider Active Start: November 18, 2024 End: November 18, 2024 Team Status: Inactive Member Role/Relationship Status Dates Minerva Flower , COURT ASSISTANT-C Primary Care Provider Active Start: December 18, 2024 End: December 18, 2024 Minerva Flower , COURT ASSISTANT-C Referring Provider Active St art: December 18, 2024 End: December 18, 2024 Dr. María Elena Solomon DO Attending Provider Activ e Start: December 18, 2024 End: December 18, 2024 Team Status: Inactive Member Role/Relationship Status Dates Minerva Flower , COURT ASSISTANT-C Primary Care Provider Active Start: January 06, 2025 End: January 06, 2025 Dr. María Elena Solomon , Attending Provider Activ e Start: January 06, 2025 End: January 06, 2025 Dr. María Elena Solomon , Referring Provider Activ e Start: January 06, 2025 End: January 06, 2025 Team Status: Inactive Member Role/Relationship Status Dates Minerva Flower , COURT ASSISTANT-C Primary Care Provider Active Start: January 06, 2025 End: January 06, [address] ASSISTANT-C Referring Provider Active St art: January 06, 2025 End: January 06, 2025 Elle Poe CNM Attending Provider Active S tart: January 06, 2025 End: January 06, 2025 Team Status: Inactive Member Role/Relationship Status Dates Minerva Flower , COURT ASSISTANT-C Primary Care Provider Active Start: January 08, 2025 End: January 08, 2025 Dr. María Elena Solomon , Attending Provider Activ e Start: January 08, 2025 End: January 08, 2025 Dr. María Elena Solomon , Referring Provider Activ e Start: January 08, 2025 End: January 08, 2025 Team Status: Inactive Member Role/Relationship Status Dates Minerva Flower , COURT ASSISTANT-C Primary Care Provider Active Start: January 20, 2025 End: January 20, [address] ASSISTANT-C Referring Provider Active St art: January 20, 2025 End: January 20, 2025 Amber Dyer CNM Attending Provider Active Start: January 20, 2025 End: January 20, 2025 Team Status: Inactive Member Role/Relationship Status Dates Minerva Flower COURT ASSISTANT-C Primary Care Provider Active Start: February 03, 2025 End: February 03, [address] ASSISTANT-C Referring Provider Active St art: February 03, 2025 End: February 03, 2025 Chioma Springer NP, COURT ASSISTANT-C Attending Provider Active Start: February 03, 2025 End: February 03, 2025 Team Status: Inactive Member Role/Relationship Status Dates Minerva Flower COURT ASSISTANT-C Primary Care Provider Active Start: February 03, 2025 End: February 03, 2025 Chioma Springer NP, COURT ASSISTANT-C Attending Provider Active Start: February 03, 2025 End: February 03, 2025 Team Status: Inactive Member Role/Relationship Status Dates Minerva Flower , COURT ASSISTANT-C Primary Care Provider Active Start: February 18, 2025 End: February 18, [address] ASSISTANT-C Referring Provider Active St art: February 18, 2025 End: February 18, 2025 Dr. María Elena Solomon , Attending Provider Activ e Start: February 18, 2025 End: February 18, 2025 Team Status: Inactive Member Role/Relationship Status Dates Minerva Flower , COURT ASSISTANT-C Primary Care Provider Active Start: February 18, 2025 End: February 18, 2025 Dr. María Elena Solomon , Attending Provider Activ e Start: February 18, 2025 End: February 18, 2025 Team Status: Inactive Member Role/Relationship Status Dates Minerva Flower , COURT ASSISTANT-C Primary Care Provider Active Start: February 19, 2025 End: February 19, 2025 Dr. María Elena Solomon DO Attending Provider Activ e Start: February 19, 2025 End: February 19, 2025 Dr. María Elena Solomon DO Referring Provider Activ e Start: February 19, 2025 End: February 19, 2025 Team Status: Active Member Role/Relationship Status Dates Minerva Flower , COURT ASSISTANT-C Primary Care Provider Active Start: February 19, 2025 Dr. María Elena Solomon DO Referring Provider Activ e Start: February 19, 2025 Dr. María Elena Solomon DO Other Provider Active Start: February 19, 2025 Elle Poe CNM Attending Provider Active S tart: February 19, 2025 Team Status: Inactive Member Role/Relationship Status Dates Minerva Flower , COURT ASSISTANT-C Primary Care Provider Active Start: February 20, 2025 End: February 20, 2025 Amber Dyer CNM Attending Provider Active Start: February 20, 2025 End: February 20, 2025 Amber Dyer CNM Referring Provider Active Start: February 20, 2025 End: February 20, 2025 Team Status: Active Member Role/Relationship Status Dates Minerva Flower COURT ASSISTANT-C Primary Care Provider Active Start: February 21, 2025 Amber Dyer CNM Attending Provider Active Start: February 21, 2025 Amber Dyer CNM Referring Provider Active Start: February 21, 2025 Amber Dyer CNM Other Provider Active Star t: February 21, 2025 Team Status: Inactive Member Role/Relationship Status Dates Minerva Flower COURT ASSISTANT-C Primary Care Provider Active Start: February 26, 2025 End: February 26, 2025 Dr. María Elena Solomon , DO Attending Provider Activ e Start: February 26, 2025 End: February 26, 2025 Dr. María Elena Solomon , Referring Provider Activ e Start: February 26, 2025 End: February 26, 2025 Team Status: Active Member Role/Relationship Status Dates Minerva Flower COURT ASSISTANT-C Primary Care Provider Active Start: February 26, 2025 Dr. María Elena Solomon , Attending Provider Activ e Start: February 26, 2025 Dr. María Elena Solomon , Referring Provider Activ e Start: February 26, 2025 Dr. María Elena Solomon , DO Other Provider Active Start: February 26, 2025 Team Status: Inactive Member Role/Relationship Status Dates Minerva lFower COURT ASSISTANT-C Primary Care Provider Active Start: March 06, 2025 End: March 06, [address] ASSISTANT-C Referring Provider Active St art: March 06, 2025 End: March 06, 2025 Amber Dyer CNM Attending Provider Active Start: March 06, 2025 End: March 06, 2025 Team Status: Inactive Member Role/Relationship Status Dates Minerva Flower COURT ASSISTANT-C Primary Care Provider Active Start: November 18, 2024 End: November 18, [address] ASSISTANT-C Referring Provider Active St art: November 18, 2024 End: November 18, 2024 Chioma Springer NP, COURT ASSISTANT-C Attending Provider Active Start: November 18, 2024 End: November 18, 2024 Team Status: Inactive Member Role/Relationship Status Dates Minerva Flower COURT ASSISTANT-C Primary Care Provider Active Start: December 18, 2024 End: December 18, [address] ASSISTANT-C Referring Provider Active St art: December 18, 2024 End: December 18, 2024 Dr. María Elena Solomon , Attending Provider Activ e Start: December 18, 2024 End: December 18, 2024 Team Status: Inactive Member Role/Relationship Status Dates Minerva Flower , COURT ASSISTANT-C Primary Care Provider Active Start: January 06, 2025 End: January 06, 2025 Dr. María Elena Solomon DO Attending Provider Activ e Start: January 06, 2025 End: January 06, 2025 Dr. María Elena Solomon DO Referring Provider Activ e Start: January 06, 2025 End: January 06, 2025 Team Status: Inactive Member Role/Relationship Status Dates Minerva Flower , COURT ASSISTANT-C Primary Care Provider Active Start: January 06, 2025 End: January 06, 2025 Minerva Flower , COURT ASSISTANT-C Referring Provider Active St art: January 06, 2025 End: January 06, 2025 Elle Poe CNM Attending Provider Active S tart: January 06, 2025 End: January 06, 2025 Team Status: Inactive Member Role/Relationship Status Dates Minerva Flower , COURT ASSISTANT-C Primary Care Provider Active Start: January 08, 2025 End: January 08, 2025 Dr. María Elena Solomon DO Attending Provider Activ e Start: January 08, 2025 End: January 08, 2025 Dr. María Elena Solomon DO Referring Provider Activ e Start: January 08, 2025 End: January 08, 2025 Team Status: Inactive Member Role/Relationship Status Dates Minerva Flower , COURT ASSISTANT-C Primary Care Provider Active Start: January 20, 2025 End: January 20, 2025 Minerva Flower , COURT ASSISTANT-C Referring Provider Active St art: January 20, 2025 End: January 20, 2025 Amber Dyer CNM Attending Provider Active Start: January 20, 2025 End: January 20, 2025 Team Status: Inactive Member Role/Relationship Status Dates Minerva Flower , COURT ASSISTANT-C Primary Care Provider Active Start: February 03, 2025 End: February 03, [address] ASSISTANT-C Referring Provider Active St art: February 03, 2025 End: February 03, 2025 Chioma Springer NP, COURT ASSISTANT-C Attending Provider Active Start: February 03, 2025 End: February 03, 2025 Team Status: Inactive Member Role/Relationship Status Dates Minerva Flower , COURT ASSISTANT-C Primary Care Provider Active Start: February 03, 2025 End: February 03, 2025 Chioma Springer NP, COURT ASSISTANT-C Attending Provider Active Start: February 03, 2025 End: February 03, 2025 Team Status: Inactive Member Role/Relationship Status Dates Minerva Flower , COURT ASSISTANT-C Primary Care Provider Active Start: February 18, 2025 End: February 18, 2025 Minerva Flower , COURT ASSISTANT-C Referring Provider Active St art: February 18, 2025 End: February 18, 2025 Dr. María Elena Solomon DO Attending Provider Activ e Start: February 18, 2025 End: February 18, 2025 Team Status: Inactive Member Role/Relationship Status Dates Minerva Flower , COURT ASSISTANT-C Primary Care Provider Active Start: February 18, 2025 End: February 18, 2025 Dr. María Elena Solomon DO Attending Provider Activ e Start: February 18, 2025 End: February 18, 2025 Team Status: Inactive Member Role/Relationship Status Dates Minerva Flower , COURT ASSISTANT-C Primary Care Provider Active Start: February 19, 2025 End: February 19, 2025 Dr. María Elena Solomon DO Attending Provider Activ e Start: February 19, 2025 End: February 19, 2025 Dr. María Elena Solomon DO Referring Provider Activ e Start: February 19, 2025 End: February 19, 2025 Team Status: Active Member Role/Relationship Status Dates Minerva Flower , COURT ASSISTANT-C Primary Care Provider Active Start: February 19, 2025 Dr. María Elena Solomon DO Referring Provider Activ e Start: February 19, 2025 Dr. María Elena Solomon DO Other Provider Active Start: February 19, 2025 Elle Poe CNM Attending Provider Active S tart: February 19, 2025 Team Status: Inactive Member Role/Relationship Status Dates Minerva Flower , COURT ASSISTANT-C Primary Care Provider Active Start: February 20, 2025 End: February 20, 2025 Amber Dyer CNM Attending Provider Active Start: February 20, 2025 End: February 20, 2025 Amber Dyer CNM Referring Provider Active Start: February 20, 2025 End: February 20, 2025 Team Status: Active Member Role/Relationship Status Dates Minerva D Flower , COURT ASSISTANT-C Primary Care Provider Active Start: February 21, 2025 Amber Dyer CNM Attending Provider Active Start: February 21, 2025 Amber Dyer CNM Referring Provider Active Start: February 21, 2025 Amber Dyer CNM Other Provider Active Star t: February 21, 2025 Team Status: Inactive Member Role/Relationship Status Dates Minerva Flower , COURT ASSISTANT-C Primary Care Provider Active Start: February 26, 2025 End: February 26, 2025 Dr. María Elena Solomon , Attending Provider Activ e Start: February 26, 2025 End: February 26, 2025 Dr. María Elena Solomon , Referring Provider Activ e Start: February 26, 2025 End: February 26, 2025 Team Status: Active Member Role/Relationship Status Dates Minerva Flower , COURT ASSISTANT-C Primary Care Provider Active Start: February 26, 2025 Dr. María Elena Solomon DO Attending Provider Activ e Start: February 26, 2025 Dr. María Elena Solomon DO Referring Provider Activ e Start: February 26, 2025 Dr. María Elena Solomon , Other Provider Active Start: February 26, 2025 Team Status: Inactive Member Role/Relationship Status Dates Minerva Flower COURT ASSISTANT-C Primary Care Provider Active Start: March 06, 2025 End: March 06, [address] ASSISTANT-C Referring Provider Active St art: March 06, 2025 End: March 06, 2025 Amber Dyer CNM Attending Provider Active Start: March 06, 2025 End: March 06, 2025 Team Status: Inactive Member Role/Relationship Status Dates Minerva Flower , COURT ASSISTANT-C Primary Care Provider Active Start: March 11, 2025 End: March 11, [address] ASSISTANT-C Referring Provider Active St art: March 11, 2025 End: March 11, 2025 Dr. Radha Peters MD Attending Provider Active Start: March 11, 2025 End: March 11, 2025 Team Status: Inactive Member Role/Relationship Status Dates Minerva Flower , COURT ASSISTANT-C Primary Care Provider Active Start: March 11, 2025 End: March 11, 2025 Dr. Radha Peters MD Attending Provider Active Start: March 11, 2025 End: March 11, 2025 Team Status: Inactive Member Role/Relationship Status Dates Minerva Flower , COURT ASSISTANT-C Primary Care Provider Active Start: December 18, 2024 End: December 18, 2024 Minerva Flower , COURT ASSISTANT-C Referring Provider Active St art: December 18, 2024 End: December 18, 2024 Dr. María Elena Solomon , DO Attending Provider Activ e Start: December 18, 2024 End: December 18, 2024 Team Status: Inactive Member Role/Relationship Status Dates Minerva Flower , COURT ASSISTANT-C Primary Care Provider Active Start: January 06, 2025 End: January 06, 2025 Dr. María Elena Solomon , DO Attending Provider Activ e Start: January 06, 2025 End: January 06, 2025 Dr. María Elena Solomon , DO Referring Provider Activ e Start: January 06, 2025 End: January 06, 2025 Team Status: Inactive Member Role/Relationship Status Dates Minerva Flower , COURT ASSISTANT-C Primary Care Provider Active Start: January 06, 2025 End: January 06, 2025 Minerva Flower , COURT ASSISTANT-C Referring Provider Active St art: January 06, 2025 End: January 06, 2025 Elle Poe CNM Attending Provider Active S tart: January 06, 2025 End: January 06, 2025 Team Status: Inactive Member Role/Relationship Status Dates Minerva Flower , COURT ASSISTANT-C Primary Care Provider Active Start: January 08, 2025 End: January 08, 2025 Dr. María Elena Solomon , Attending Provider Activ e Start: January 08, 2025 End: January 08, 2025 Dr. María Elena Solomon , Referring Provider Activ e Start: January 08, 2025 End: January 08, 2025 Team Status: Inactive Member Role/Relationship Status Dates Minerva Flower , COURT ASSISTANT-C Primary Care Provider Active Start: January 20, 2025 End: January 20, 2025 Minerva Flower , COURT ASSISTANT-C Referring Provider Active St art: January 20, 2025 End: January 20, 2025 Amber Dyer CNM Attending Provider Active Start: January 20, 2025 End: January 20, 2025 Team Status: Inactive Member Role/Relationship Status Dates Minerva Kolby Flower , COURT ASSISTANT-C Primary Care Provider Active Start: February 03, 2025 End: February 03, 2025 Minerva Flower , COURT ASSISTANT-C Referring Provider Active St art: February 03, 2025 End: February 03, [address] ASSISTANT, COURT ASSISTANT-C Attending Provider Active Start: February 03, 2025 End: February 03, 2025 Team Status: Inactive Member Role/Relationship Status Dates Minerva Flower , COURT ASSISTANT-C Primary Care Provider Active Start: February 03, 2025 End: February 03, [address] ASSISTANT, COURT ASSISTANT-C Attending Provider Active Start: February 03, 2025 End: February 03, 2025 Team Status: Inactive Member Role/Relationship Status Dates Minerva Flower , COURT ASSISTANT-C Primary Care Provider Active Start: February 18, 2025 End: February 18, 2025 Minerva Flower , COURT ASSISTANT-C Referring Provider Active St art: February 18, 2025 End: February 18, 2025 Dr. María Elena Solomon DO Attending Provider Activ e Start: February 18, 2025 End: February 18, 2025 Team Status: Inactive Member Role/Relationship Status Dates Minerva Flower , COURT ASSISTANT-C Primary Care Provider Active Start: February 18, 2025 End: February 18, 2025 Dr. María Elena Solomon DO Attending Provider Activ e Start: February 18, 2025 End: February 18, 2025 Team Status: Inactive Member Role/Relationship Status Dates Minerva Flower , COURT ASSISTANT-C Primary Care Provider Active Start: February 19, 2025 End: February 19, 2025 Dr. María Elena Solomon DO Attending Provider Activ e Start: February 19, 2025 End: February 19, 2025 Dr. María Elena Solomon DO Referring Provider Activ e Start: February 19, 2025 End: February 19, 2025 Team Status: Active Member Role/Relationship Status Dates Minerva Flower , COURT ASSISTANT-C Primary Care Provider Active Start: February 19, 2025 Dr. María Elena oSlomon DO Referring Provider Activ e Start: February 19, 2025 Dr. María Elena Solomon DO Other Provider Active Start: February 19, 2025 Elle Poe CNM Attending Provider Active S tart: February 19, 2025 Team Status: Inactive Member Role/Relationship Status Dates Minerva Flower COURT ASSISTANT-C Primary Care Provider Active Start: February 20, 2025 End: February 20, 2025 Amber Dyer CNM Attending Provider Active Start: February 20, 2025 End: February 20, 2025 Amber Dyer CNM Referring Provider Active Start: February 20, 2025 End: February 20, 2025 Team Status: Active Member Role/Relationship Status Dates Minerva Flower COURT ASSISTANT-C Primary Care Provider Active Start: February 21, 2025 Amber Dyer CNM Attending Provider Active Start: February 21, 2025 Amber Dyer CNM Referring Provider Active Start: February 21, 2025 Amber Dyer CNM Other Provider Active Star t: February 21, 2025 Team Status: Inactive Member Role/Relationship Status Dates Minerva Flower COURT ASSISTANT-C Primary Care Provider Active Start: February 26, 2025 End: February 26, 2025 Dr. María Elena Solomon DO Attending Provider Activ e Start: February 26, 2025 End: February 26, 2025 Dr. María Elena Solomon DO Referring Provider Activ e Start: February 26, 2025 End: February 26, 2025 Team Status: Active Member Role/Relationship Status Dates Minerva Flower COURT ASSISTANT-C Primary Care Provider Active Start: February 26, 2025 Dr. María Elena Solomon DO Attending Provider Activ e Start: February 26, 2025 Dr. María Elena Solomon DO Referring Provider Activ e Start: February 26, 2025 Dr. María Elena Solomon , Other Provider Active Start: February 26, 2025 Team Status: Inactive Member Role/Relationship Status Dates Minerva Flower COURT ASSISTANT-C Primary Care Provider Active Start: March 06, 2025 End: March 06, [address] ASSISTANT-C Referring Provider Active St art: March 06, 2025 End: March 06, 2025 Amber Dyer CNM Attending Provider Active Start: March 06, 2025 End: March 06, 2025 Team Status: Inactive Member Role/Relationship Status Dates Minerva Flower COURT ASSISTANT-C Primary Care Provider Active Start: March 11, 2025 End: March 11, 2025 Minerva D Flower , COURT ASSISTANT-C Referring Provider Active St art: March 11, 2025 End: March 11, 2025 Dr. Radha Peters MD Attending Provider Active Start: March 11, 2025 End: March 11, 2025 Team Status: Inactive Member Role/Relationship Status Dates Minerva D Flower , COURT ASSISTANT-C Primary Care Provider Active Start: March 11, 2025 End: March 11, 2025 Dr. Radha Peters MD Attending Provider Active Start: March 11, 2025 End: March 11, 2025 Team Status: Inactive Member Role/Relationship Status Dates Minerva D Flower , COURT ASSISTANT-C Primary Care Provider Active Start: March 19, 2025 End: March 19, 2025 Minerva Kolby Flower , COURT ASSISTANT-C Referring Provider Active St art: March 19, 2025 End: March 19, 2025 Dr. María Elena Solomon DO Attending Provider Activ e Start: March 19, 2025 End: March 19, 2025 Team Status: Inactive Member Role/Relationship Status Dates Minerva Kolby Flower , COURT ASSISTANT-C Primary Care Provider Active Start: March 19, 2025 End: March 19, 2025 Dr. María Elena Solomon DO Attending Provider Activ e Start: March 19, 2025 End: March 19, 2025 Dr. María Elena Solomon DO Referring Provider Activ e Start: March 19, 2025 End: March 19, 2025 Team Status: Inactive Member Role/Relationship Status Dates Minerva D Flower , COURT ASSISTANT-C Primary Care Provider Active Start: March 25, 2025 End: March 25, 2025 Minerva Flower , COURT ASSISTANT-C Referring Provider Active St art: March 25, 2025 End: March 25, 2025 Dr. Radha Peters MD Attending Provider Active Start: March 25, 2025 End: March 25, 2025 Team Status: Inactive Member Role/Relationship Status Dates Minerva Kolby Flower , COURT ASSISTANT-C Primary Care Provider Active Start: March 30, 2025 End: April 01, 2025 Dr. Radha Peters MD Admit Provider Active Start: March 30, 2025 End: April 01, 2025 Dr. Radha Peters MD Attending Provider Active Start: March 30, 2025 End: April 01, 2025 Team Status: Active Member Role/Relationship Status Dates Minerva Kolby Flower , COURT ASSISTANT-C Primary Care Provider Active Start: March 30, 2025 Dr. Radha Peters MD Admit Provider Active Start: March 30, 2025 Dr. Radha Peters MD Attending Provider Active Start: March 30, 2025 Dr. Radha Peters MD Other Provider Active Start: March 30, 2025 Team Status: Active Member Role/Relationship Status Dates Minerva Flower COURT ASSISTANT-C Primary Care Provider Active Start: March 31, 2025 Dr. Radha Peters MD Admit Provider Active Start: March 31, 2025 Dr. Radha Peters MD Attending Provider Active Start: March 31, 2025 Dr. Radha Peters MD Other Provider Active Start: March 31, 2025 Team Status: Active Member Role/Relationship Status Dates Minerva Flower NP-C Primary Care Provider Active Start: April 01, 2025 Dr. Radha Peters MD Admit Provider Active Start: April 01, 2025 Dr. Radha Peters MD Attending Provider Active Start: April 01, 2025 Dr. Radha Peters MD Other Provider Active Start: April 01, 2025 Team Status: Inactive Member Role/Relationship Status Dates Minerva Flower COURT ASSISTANT-C Primary Care Provider Active Start: April 13, 2025 End: April 13, 2025 Minerva Flower NP-C Referring Provider Active St art: April 13, 2025 End: April 13, [address] ASSISTANT-C Attending Provider Active Start: April 13, 2025 End: April 13, 2025 Goals (unrecognized section and content) Goals [...] BE BASED ON THE PRIMARY CLINICAL RECORDS. [facility]. provides no warranty or guarantee of the accuracy or completeness of information in this document.
== END | disposition home or self-care (01) ==
LOC: LABSPEC 16:16
PROVIDERS: PCP Nurse Practitioner Family; Referring Provider Nurse Practitioner Women's Health; Visit Provider Nurse Practitioner Women's Health
DX: R30.0 Dysuria (principal)
CPT/HCPCS: 87086; 87088

== ENCOUNTER → 2025-05-08 | Outpatient (CLI) | payer OTHER, SELFPAY | END | disposition home or self-care (01) | LOC: LABSPEC 11:20 | PROVIDERS: PCP Nurse Practitioner Family; Referring Provider Obstetrics & Gynecology; Visit Provider Obstetrics & Gynecology | DX: Z12.4 Encounter for screening for malignant neoplasm of cervix (principal); R30.0 Dysuria | CPT/HCPCS: 87086; 88175; G0145 ==